=== PATIENT | male | born 1945 | race Caucasian/White ===

== ENCOUNTER 2017-08-14 13:20 | Emergency (ER) | payer OTHER, MEDICARE ==
--- NOTE | 2017-08-14 14:40 | XR ---
EXAMINATION TYPE: XR knee complete LT DATE OF EXAM: 08/14/2017 COMPARISON: NONE HISTORY: Left knee pain TECHNIQUE: Left knee is examined in 3 projections. FINDINGS: No joint effusion is evident. There is mild narrowing of the medial compartment joint space . Milder narrowing of the lateral compartment joint space is present. Tiny posterior superior patella r spur is present. No acute fractures are evident. IMPRESSION: 1. Mild degenerative changes left knee
[2017-08-14] MEDS ORDERED: DICLOXACILLIN 250 MG CAPSULE PO STA (16:00)
--- NOTE | 2017-08-14 16:00 | ED ---
Lower Extremity Injury HPI - General Chief Complaint: Extremity Injury, Lower Stated Complaint: L knee pain Time Seen by Provider: 08/14/17 13:42 Source: patient Mode of arrival: ambulatory Limitations: no limitations - History of Present Illness Initial Comments: 71-year-old male patient presents to the emergency department today for complaints of left knee pain and swelling. Patient states that 2 days ago he was kneeling outside working on a deck. He states that since then has been having left knee pain. He states he has developed some redness and swelling to the knee. States he did present to his primary care physician today who instructed him to come here for an x-ray of the knee. Patient states that the knee feels swollen. He states he does have full range of motion of the knee however has increased pain with full extension. Patient states that otherwise he is feeling fine. He denies any fever or chills. Denies any numbness or tingling to the lower leg. Denies any previous injury to the leg. States that the knee appears to be somewhat better since yesterday. He denies any swelling to the foot or ankle. Patient denies any recent shortness breath, chest pain, abdominal pain, nausea, vomiting, diarrhea, constipation, back pain, numbness, tingling, headache, visual changes, hematuria, dysuria, urinary frequency, urinary urgency, or any other complaints. Denies any recent travel or history of blood clots. Patient does have a history of type 2 diabetes. - Related Data Previous Rx's Medication Instructions Recorded Dicloxacillin [Dynapen] 500 mg PO Q6H #56 capsule 08/14/17 Allergies Allergy/AdvReac Type Severity Reaction Status Date / Time iodine Allergy Unknown Verified 08/14/17 13:34 Review of Systems ROS Statement: Those systems with pertinent positive or pertinent negative responses have been documented in the HPI. ROS Other: All systems not noted in ROS Statement are negative. Past Medical History Past Medical History: Diabetes Mellitus, Hyperlipidemia, Hypertension History of Any Multi-Drug Resistant Organisms: None Reported Past Surgical History: Back Surgery Past Psychological History: No Psychological Hx Reported Smoking Status: Former smoker Past Alcohol Use History: None Reported Past Drug Use History: None Reported General Exam Limitations: no limitations General appearance: alert, in no apparent distress, other (This is a well- developed, well-nourished adult male patient in no acute distress. Vital signs upon presentation her temperature 97.5F, pulse 71, respirations 20, blood pressure 139/88, pulse ox 95% on room air.) Eye exam: Present: normal appearance, PERRL, EOMI. Absent: scleral icterus, conjunctival injection, periorbital swelling ENT exam: Present: normal exam, normal oropharynx, mucous membranes moist Respiratory exam: Present: normal lung sounds bilaterally. Absent: respiratory distress, wheezes, rales, rhonchi, stridor Cardiovascular Exam: Present: regular rate, normal rhythm, normal heart sounds. Absent: systolic murmur, diastolic murmur, rubs, gallop, clicks Extremities exam: Present: full ROM (Increased pain with full extension), normal capillary refill, joint swelling (Left knee swelling, suprapatellar and infrapatellar.), other (He has erythema extending from above the left knee, leg. Leg is warm to touch. Pedal posttibial pulses are intact and 2+ bilaterally. Left leg feels more warm than the right leg.). Absent: tenderness (No point tenderness over the knee or joint.), pedal edema, calf tenderness Neurological exam: Present: alert, oriented X3, CN II-XII intact Psychiatric exam: Present: normal affect, normal mood Skin exam: Present: warm, dry, intact, normal color. Absent: rash Course Vital Signs 08/14/17 13:29 Temperature 97.5 F L Pulse Rate 71 Respiratory 20 Rate Blood Pressure 139/88 O2 Sat by Pulse 95 Oximetry Medical Decision Making - Medical Decision Making 71-year-old male patient presented to the emergency department today for evaluation of left knee pain and swelling. Physical examination did reveal erythema surrounding the left knee as well as extending down the left lower leg. The patient did have full range of motion and no point tenderness over the knee. We did perform an x-ray which showed no joint effusion or fracture. We did perform ultrasound of the left lower extremity which was negative for any acute DVT. I did inform patient that I would like to admit him for IV antibiotics however he would like to attempt outpatient oral antibiotic treatment before admission. Patient vital signs are stable with no evidence of fever. I told him that there is a good possibility that this will not clear up with oral antibiotics and that IV antibiotics would be superior. and patient state that the knee looks better since yesterday and they again stated they would like to go home. Nurse discussed this with the patient as well, their decision was to go home. I did draw a line around the erythema, I did inform them to either present back here immediately or follow-up with his doctor if symptoms seem to be worsening or if he develops a fever. They state that they will go to the [facility] in [place] if things seem to be worsening. - Radiology Data Radiology results: report reviewed, image reviewed Ultrasound of the left lower extremity report reviewed in its entirety shows no sonographic evidence of deep venous thrombosis within the left lower extremity. Impression is by Dr. Ragland. 3 views of the left knee shows no joint effusion. There is mild narrowing of the medial compartment joint space. Milder narrowing of the lateral compartment joint space is present. Tiny posterior suprapatellar spur is present. No acute fractures are evident. Impression by Dr. Holly shows mild degenerative changes on the left knee. Disposition Clinical Impression: Bursitis of left knee Disposition: HOME SELF-CARE Condition: Good Instructions: Knee Bursitis (ED) Additional Instructions: Keep leg elevated. Take antibiotic prescription as directed. If redness starts to spread, you develop any red streaking from the knee, or you develop fever return here immediately. Follow up with her primary care physician for recheck of the leg in one to 2 days. Return here immediately for any other new , worsening, or concerning symptoms. Prescriptions: Dicloxacillin [Dynapen] 500 mg PO Q6H #56 capsule Referrals: Aries Chowdhury DO [Primary Care Provider] - 1-2 days Time of Disposition: 16:00
--- NOTE | 2017-08-14 16:28 | US ---
EXAMINATION TYPE: US venous doppler duplex LE LT DATE OF EXAM: 08/14/2017 2:51 PM COMPARISON: NONE CLINICAL HISTORY: Pain. Left knee redness, swelling and pain. Warm to touch. On aspirin. No histor y of blood clots. Patient states he has been kneeling trying to loosen floor boards. SIDE PERFORMED: Left TECHNIQUE: The lower extremity deep venous system is examined utilizing real time linear array sonog porfirio with graded compression, doppler sonography and color-flow sonography. VESSELS IMAGED: External Iliac Vein (EIV) Common Femoral Vein Deep Femoral Vein Greater Saphenous Vein * Femoral Vein Popliteal Vein Small Saphenous Vein * Proximal Calf Veins (* superficial vessels) Left Leg: Negative for DVT Grayscale, color doppler, spectral doppler imaging performed of the deep veins of the lower extremiti es. There is normal flow, compressibility, vascular waveforms. IMPRESSION: No sonographic evidence of deep venous arthrosis within the left lower extremity.
[2017-08-14 16:32] VITALS: BP 152/91; PULSE 89; RESP 18; TEMP 97.9
[2017-08-14] MEDS ORDERED: DICLOXACILLIN 250 MG CAPSULE ONE (16:47)
== END 2017-08-14 16:49 | disposition home or self-care (01) ==
LOC: EC 13:20
DX: M70.52 Other bursitis of knee, left knee (principal); M25.562 Pain in left knee; Z87.891 Personal history of nicotine dependence; Z91.048 Other nonmedicinal substance allergy status; Y93.89 Activity, other specified
CPT/HCPCS: 99284

== ENCOUNTER 2021-09-23 15:32 | Inpatient (IN) | payer OTHER, MEDICARE ==
--- NOTE | 2021-09-23 16:30 | ED ---
General Adult HPI - General Stated complaint: ankle swelling, altered - History of Present Illness Initial comments: Camden is a 76yo M with PMH DM, HTN, HLD, COPD who presents to the ER today via private vehicle for evaluation of flu like illness for 2-3 days. Daughter reports the patient and his are both ill, the patient has not been taking his normal home medications. Patient has also been experiencing urinary incontinence and frequency. Patient's daughter also feels that his feet are swollen, he isnt able to ambulate and has been having frequent falls because of it. - Related Data Allergies Allergy/AdvReac Type Severity Reaction Status Date / Time iodine Allergy Unknown Verified 09/23/21 22:02 Review of Systems ROS Statement: Those systems with pertinent positive or pertinent negative responses have been documented in the HPI. ROS Other: All systems not noted in ROS Statement are negative. Past Medical History Past Medical History: COPD, Diabetes Mellitus, Hyperlipidemia, Hypertension History of Any Multi-Drug Resistant Organisms: None Reported Past Surgical History: Back Surgery Past Psychological History: No Psychological Hx Reported Past Alcohol Use History: None Reported Past Drug Use History: None Reported General Exam - General Exam Comments Initial Comments: Physical Exam GENERAL: Ill appearing Appears dehydrated HENT: Normocephalic, Atraumatic. EYES: PERRL, EOMI PULMONARY: Tachypnea CARDIOVASCULAR: Tachycardia bilateral lower extremity edema R>L ABDOMEN: Soft and nontender with normal bowel sounds. SKIN: Dry : Deferred NEUROLOGIC: Patient is alert but confused, oriented to self and year MUSCULOSKELETAL: Normal extremities with adequate strength and full range of motion. No lower extremity swelling or edema. No calf tenderness. PSYCHIATRIC: Confused Course Vital Signs 09/23/21 09/23/21 09/23/21 16:23 18:35 18:38 Temperature 100.7 F H Pulse Rate 133 H 130 H Respiratory 20 22 22 Rate Blood Pressure 111/77 151/91 O2 Sat by Pulse 89 L 89 L Oximetry 09/23/21 19:21 Temperature Pulse Rate 124 H Respiratory 22 Rate Blood Pressure O2 Sat by Pulse 89 L Oximetry EKG Findings - EKG Comments: EKG Findings:: Initial EKG was obtained at 1641, rate is 133 rhythm is sinus tachycardia normal axis, normal intervals are no acute ST elevations or depressions no evidence of acute ischemia or infarction. EKG was obtained due to persistent tachycardia, repeat EKG was obtained at 2006 rate is 119 rhythm is sinus normal axis normal intervalsST elevations or depressions no evidence of ischemia or infarction, rate has improved Medical Decision Making - Medical Decision Making Patient was seen and evaluated history was obtained primarily from children as the patient was quite confused quite dehydrated. Patient has been ill for at least 3 days possibly longer as the children have not been by to check on him but were concerned about him sounding confused over the phone with by the check him today and found him in quite ill state. With the patient and his are febrile, not feeling well. The patient's not been able to ambulate well he has swelling of the legs is dehydrated. Is positive for COVID-19, discussed with the patient who is still confused and daughter bedside the patient has acute kidney injury, transaminitis, mildly elevated troponin and is hypoxic requiring oxygen. At this time the patient seems to have multisystem organ dysfunction given his advanced age, obesity he does have a poor prognosis. Family is aware but they have never discussed any advanced rectums her CODE STATUS patient will remain full code at this time. He's on for half liters nasal cannula oxygen saturation 92% while in the emergency department Due to the patient's persistent tachycardia and hypoxia there is concern for possible underlying pulmonary embolism however with the patient's very low GFR and acute kidney injury he cannot undergo CT pulmonary embolism study at this time, we will treat empirically with weight-based Lovenox. Duplex ultrasound of the bilateral lower extremities were ordered and will be followed up on by the admitting team. Patient care was discussed with Coco Verde - mid-level provider for the [facility] hospitalist group she accepts the admission for elderly obese general mental COVID-19 multisystem organ dysfunction on oxygen. - Lab Data Result diagrams: 09/23/21 18:21 09/23/21 18:21 Lab Results 09/23/21 09/23/21 09/23/21 Range/Units 16:32 18:21 18:21 WBC 9.9 (3.8-10.6) k/uL RBC 4.82 (4.30-5.90) m/uL Hgb 15.2 (13.0-17.5) gm/dL Hct 46.2 (39.0-53.0) % MCV 95.8 (80.0-100.0) fL MCH 31.5 (25.0-35.0) pg MCHC 32.8 (31.0-37.0) g/dL RDW 13.5 (11.5-15.5) % Plt Count 222 (150-450) k/uL MPV 8.7 Neutrophils % 76 % Lymphocytes % 16 % Monocytes % 5 % Eosinophils % 0 % Basophils % 1 % Neutrophils # 7.6 (1.3-7.7) k/uL Lymphocytes # 1.6 (1.0-4.8) k/uL Monocytes # 0.5 (0-1.0) k/uL Eosinophils # 0.0 (0-0.7) k/uL Basophils # 0.1 (0-0.2) k/uL PT 10.2 (9.0-12.0) sec INR 0.9 (<1.2) APTT 24.2 (22.0-30.0) sec Sodium (137-145) mmol/L Potassium (3.5-5.1) mmol/L Chloride (98-107) mmol/L Carbon Dioxide (22-30) mmol/L Anion Gap mmol/L BUN (9-20) mg/dL Creatinine (0.66-1.25) mg/dL Est GFR (CKD-EPI)AfAm (>60 ml/min/1.73 sqM) Est GFR (CKD-EPI)NonAf (>60 ml/min/1.73 sqM) Glucose (74-99) mg/dL Plasma Lactic Acid Benji (0.7-2.0) mmol/L Calcium (8.4-10.2) mg/dL Magnesium (1.6-2.3) mg/dL Total Bilirubin (0.2-1.3) mg/dL AST (17-59) U/L ALT (4-49) U/L Alkaline Phosphatase (38-126) U/L Lactate Dehydrogenase (313-618) U/L Troponin I (0.000-0.034) ng/mL C-Reactive Protein (<1.0) mg/dL Total Protein (6.3-8.2) g/dL Albumin (3.5-5.0) g/dL Coronavirus (PCR) Detected A (Not Detectd) 09/23/21 09/23/21 09/23/21 Range/Units 18:21 18:21 18:21 WBC (3.8-10.6) k/uL RBC (4.30-5.90) m/uL Hgb (13.0-17.5) gm/dL Hct (39.0-53.0) % MCV (80.0-100.0) fL MCH (25.0-35.0) pg MCHC (31.0-37.0) g/dL RDW (11.5-15.5) % Plt Count (150-450) k/uL MPV Neutrophils % % Lymphocytes % % Monocytes % % Eosinophils % % Basophils % % Neutrophils # (1.3-7.7) k/uL Lymphocytes # (1.0-4.8) k/uL Monocytes # (0-1.0) k/uL Eosinophils # (0-0.7) k/uL Basophils # (0-0.2) k/uL PT (9.0-12.0) sec INR (<1.2) APTT (22.0-30.0) sec Sodium 140 (137-145) mmol/L Potassium 4.3 (3.5-5.1) mmol/L Chloride 102 (98-107) mmol/L Carbon Dioxide 23 (22-30) mmol/L Anion Gap 15 mmol/L BUN 54 H (9-20) mg/dL Creatinine 1.49 H (0.66-1.25) mg/dL Est GFR (CKD-EPI)AfAm 52 (>60 ml/min/1.73 sqM) Est GFR (CKD-EPI)NonAf 45 (>60 ml/min/1.73 sqM) Glucose 133 H (74-99) mg/dL Plasma Lactic Acid Benji 2.0 (0.7-2.0) mmol/L Calcium 9.0 (8.4-10.2) mg/dL Magnesium 2.8 H (1.6-2.3) mg/dL Total Bilirubin 2.1 H (0.2-1.3) mg/dL AST 123 H (17-59) U/L ALT 58 H (4-49) U/L Alkaline Phosphatase 111 (38-126) U/L Lactate Dehydrogenase 1625 H (313-618) U/L Troponin I 0.026 (0.000-0.034) ng/mL C-Reactive Protein 38.4 H (<1.0) mg/dL Total Protein 6.8 (6.3-8.2) g/dL Albumin 3.6 (3.5-5.0) g/dL Coronavirus (PCR) (Not Detectd) Disposition Clinical Impression: COVID-19, Multisystem organ failure, Obesity Disposition: ADMITTED IP TO THIS HOSP Condition: Serious Is patient prescribed a controlled substance at d/c from ED?: No
[2021-09-23] MEDS ORDERED: SODIUM CHLORIDE 0.9% 500 ML 500 ML IV ONE (17:27)
[2021-09-23 18:29] LABS: Basophils # (A) 0.1 k/uL (0-0.2); Basophils % (A) 1 %; Eosinophils % (A) 0 %; HCT 46.2 % (39.0-53.0); HGB 15.2 gm/dL (13.0-17.5); Lymphocytes # (A) 1.6 k/uL (1.0-4.8); Lymphocytes % (A) 16 %; MCH 31.5 pg (25.0-35.0); MCHC 32.8 g/dL (31.0-37.0); MCV 95.8 fL (80.0-100.0); Mean Platelet Volume 8.7; Monocytes # (A) 0.5 k/uL (0-1.0); Monocytes % (A) 5 %; Neutrophils # (A) 7.6 k/uL (1.3-7.7); Neutrophils % (A) 76 %; Platelet Count 222 k/uL (150-450); RBC 4.82 m/uL (4.30-5.90); RDW 13.5 % (11.5-15.5); WBC 9.9 k/uL (3.8-10.6)
[2021-09-23 18:38] LABS: INR 0.9 (<1.2); Partial Thromboplastin Time 24.2 sec (22.0-30.0); Prothrombin Time 10.2 sec (9.0-12.0)
[2021-09-23 18:43] LABS: Albumin 3.6 g/dL (3.5-5.0); Magnesium 2.8 mg/dL (1.6-2.3); Potassium 4.3 mmol/L (3.5-5.1); Total Bilirubin 2.1 mg/dL (0.2-1.3); Total Protein 6.8 g/dL (6.3-8.2)
[2021-09-23] MEDS: ACETAMINOPHEN TAB 500 MG TAB PO PRN (18:48)
[2021-09-23] MEDS: SODIUM CHLORIDE 0.9% 1,000 ML IV SCH (18:48)
--- NOTE | 2021-09-23 19:15 | XR ---
EXAMINATION TYPE: XR chest 1V portable DATE OF EXAM: 09/23/2021 COMPARISON: NONE HISTORY: Pneumonia TECHNIQUE: Single view FINDINGS: There is some increased interstitial density in the lung baxter bilaterally. This is worse on the left side. There is elevated right diaphragm. There is some atelectasis right lung base. There is no heart failure. IMPRESSION: Interstitial pulmonary infiltrates slightly more on the left side. Mild atelectasis right lung base. No heart failure seen. Atheromatous aorta. Normal heart.
[2021-09-23 19:23] LABS: C Reactive Protein 38.4 mg/dL (<1.0)
[2021-09-23] MEDS ORDERED: ENOXAPARIN 100 MG/ML SYRINGE SQ STA (21:48)
[2021-09-23] MEDS ORDERED: NALOXONE 0.4 MG/ML 1 ML VIAL IV PRN (21:48)
--- NOTE | 2021-09-23 23:23 | US ---
EXAMINATION TYPE: US venous doppler duplex LE DATE OF EXAM: 09/23/2021 10:58 PM COMPARISON: US LL 2017 CLINICAL HISTORY: edema, COVID - concern for DVT. Edema. Covid positive, concern for DVT. SIDE PERFORMED: Bilateral TECHNIQUE: The lower extremity deep venous system is examined utilizing real time linear array sonog porfirio with graded compression, doppler sonography and color-flow sonography. VESSELS IMAGED: Common Femoral Vein Deep Femoral Vein Greater Saphenous Vein * Femoral Vein Popliteal Vein Small Saphenous Vein * Proximal Calf Veins (* superficial vessels) Right Leg: Rouleaux flow visualized throughout all veins imaged causing slight color defect. All vei ns imaged appear to compress at this time. Duplicate popliteal vein noted. Left Leg: Rouleaux flow visualized throughout all veins imaged causing slight color defect. All vein s imaged appear to compress at this time. Duplicate femoral and popliteal vein noted. Augment deferre d-probable slow flow seen. IMPRESSION: No evidence of deep vein thrombosis in both legs.
[2021-09-23] MEDS ORDERED: ALBUTEROL HFA INHALER INHALATION PRN (23:53)
[2021-09-24] MEDS: GABAPENTIN 300 MG CAP PO SCH ×4 (00:31→22:32)
[2021-09-24] MEDS: LATANOPROST 0.005% OPHTH DROPS 2.5 ML BTL BOTH EYES SCH ×2 (00:32→22:43)
[2021-09-24] MEDS: carvediloL 12.5 MG TAB PO SCH ×3 (00:33→22:32)
[2021-09-24] MEDS: ALBUTEROL HFA INHALER INHALATION SCH ×6 (02:45→20:55)
[2021-09-24] MEDS: SODIUM CHLORIDE 0.9% 1,000 ML IV SCH ×2 (07:04→22:03)
[2021-09-24 07:42] LABS: Glucose,Whole Blood 178 mg/dL (75-99)
[2021-09-24] MEDS: TIOTROPIUM 2.5 MCG INHALER INHALATION SCH (09:12)
[2021-09-24] MEDS: SYMBICORT 80-4.5 MCG INHALER INHALATION SCH ×2 (09:12→20:55)
[2021-09-24 09:37] LABS: Basophils # (A) 0.03 X 10*3/uL (0.00-0.10); Basophils % (A) 0.4 %; Eosinophils # (A) 0.01 X 10*3/uL (0.04-0.35); Eosinophils % (A) 0.1 %; HCT 40.1 % (39.6-50.0); Lymphocytes # (A) 0.51 X 10*3/uL (0.90-5.00); Lymphocytes % (A) 6.2 %; MCHC 29.9 g/dL (32.0-37.0); MCV 100.3 fL (80.0-97.0); Mean Platelet Volume 10.8 fL (9.5-12.2); Monocytes # (A) 0.44 X 10*3/uL (0.20-1.00); Monocytes % (A) 5.4 %; Neutrophils # (A) 7.12 X 10*3/uL (1.80-7.70); Neutrophils % (A) 86.6 %; Platelet Count 213 X 10*3/uL (140-440); RDW 14.4 % (11.5-14.5); WBC 8.22 X 10*3/uL (4.50-10.00)
[2021-09-24] MEDS: CHOLECALCIFEROL 125 MCG (5000 IU) TABLET PO SCH (09:56)
[2021-09-24] MEDS: ASCORBIC ACID 500 MG TAB PO SCH (09:56)
[2021-09-24] MEDS: INSULIN ASPART (NovoLOG) 100 UNIT/ML VIAL SQ SCH ×4 (09:56→22:42)
[2021-09-24] MEDS: TAMSULOSIN 0.4 MG CAP.ER.24H PO SCH (09:56)
[2021-09-24] MEDS: DEXAMETHASONE SOD PHOSPHATE 10 MG/ML 1 ML VIAL IVP SCH (09:57)
[2021-09-24] MEDS: ZINC SULFATE 220 MG CAP PO SCH (09:57)
[2021-09-24 10:05] LABS: African American GFR (CKD) 57.2 (60.0-200.0); Albumin/Globulin Ratio 1.21 (1.60-3.17); BUN/Creat Ratio 32.39 Ratio (12.00-20.00); Blood Urea Nitrogen 44.7 mg/dL (9.0-27.0); Calcium 8.2 mg/dL (8.7-10.3); Globulin 2.5 g/dL (1.6-3.3); Non-African American GFR(CKD) 49.3 (60.0-200.0); Total Bilirubin 1.4 mg/dL (0.30-1.20); Total Protein 5.6 g/dL (6.2-8.2)
--- NOTE | 2021-09-24 12:00 | P.CNPUL ---
History of Present Illness Consult date: 09/24/21 Requesting physician: Kevin Moore Reason for consult: dyspnea, hypoxemia, abnormal CXR/CT Chief complaint: Shortness of breath, cough, congestion History of present illness: This is a 76-year-old male patient who follows with the [facility] system as his primary care provider. He has a history of chronic obstructive pulmonary disease, hypertension, hyperlipidemia, diabetes mellitus, obstructive sleep apnea maintained on CPAP at a pressure of 11 cm of water with C-Flex of 3. He has a 2 week history of increasing shortness of breath, cough and congestion. He presented here to the emergency room yesterday for the same. X-ray reveals bilateral patchy infiltrates left greater than right consistent with COVID-19 pneumonia. White count 8.2. Hemoglobin 12.0. D-dimer 2.07. Sodium 140. Potassium 4.0. Creatinine 1.4. AST 85. ALT 50. LDH 1625. C-reactive protein 38.4. Pro-calcitonin 4.89. [place] virus by PCR positive. He's been initiated on Decadron, vitamin supplements. If he did receive Lovenox 100 mg subcu once yesterday. Normal saline at 75 ML's per hour. He is seen today in consultation in the emergency department. He is currently sitting up awake and alert. Some what slow to respond. Somewhat of a poor historian. His daughter is present in the room in supplies most of the information. Is currently maintaining O2 saturations in the low 90s on 6 L high flow nasal cannula. He's been afebrile. Slightly tachycardic. Hypertensive. Review of Systems REVIEW OF SYSTEMS: CONSTITUTIONAL: Denies any recent significant weight loss or weight gain. EYES: Denies change in vision. EARS, NOSE, MOUTH, THROAT: Denies headaches, denies sore throat. CARDIOVASCULAR: Denies chest pain, palpitations or syncopal episodes. RESPIRATORY: Positive for shortness of breath, cough, congestion no hemoptysis. GASTROINTESTINAL: Denies change in appetite, denies abdominal pain GENITOURINARY: Denies hematuria, denies infections. MUSKULOSKELETAL: Denies pain, denies swelling. INTEGUMENTARY: Denies rash, denies eczema. NEUROLOGICAL: Denies recent memory loss, no recent seizure activity. PSYCHIATRIC: Denies anxiety, denies depression. HEMATOLOGIC/LYMPHATIC: Denies anemia, denies enlarged lymph nodes. Past Medical History Past Medical History: Cancer, COPD, Diabetes Mellitus, Eye Disorder, GERD/Reflux, Hearing Disorder / Deafness, Hyperlipidemia, Hypertension, Osteoarthritis (OA), Pneumonia, Prostate Disorder, Sleep Apnea/CPAP/BIPAP, Vascular Disorder Additional Past Medical History / Comment(s): NIDDM type II, neuropathy bilateral hands/feet, diabetic retinopathy, MAGAN with Cpap, skin cancer with removals, diverticular disease, RLS, BPH, bilateral ear infections/tinnitis/[place] uses hearing aides History of Any Multi-Drug Resistant Organisms: None Reported Past Surgical History: Back Surgery, Hernia Repair, Orthopedic Surgery Additional Past Surgical History / Comment(s): Cervical fusion, L5 back surgery, umbilical hernia, colonoscopies, vasectomy, circumcism. Past Anesthesia/Blood Transfusion Reactions: No Reported Reaction Smoking Status: Former smoker - Past Family History Father Family Medical History: Unable to Obtain Mother Family Medical History: No Reported History Additional Family Medical History / Comment(s): Mother lived into her 90s. Medications and Allergies Home Medications Medication Instructions Recorded Confirmed Type Albuterol Inhaler [Ventolin Hfa 1 puff INHALATION RT-Q4H PRN 09/23/21 09/23/21 History Inhaler] Carvedilol [Coreg] 12.5 mg PO BID 09/23/21 09/23/21 History Cyclobenzaprine [Flexeril] 10 mg PO TID PRN 09/23/21 09/23/21 History Fluticasone Propion/Salmeterol 1 puff INHALATION RT-BID 09/23/21 09/23/21 History [Fluticasone-Salmeterol 250-50] Gabapentin [Neurontin] 300 mg PO TID 09/23/21 09/23/21 History Latanoprost [Xalatan 0.005%] 1 drop BOTH EYES HS 09/23/21 09/23/21 History Lidocaine 5% Patch [Lidoderm 5% 1 patch TOPICAL DAILY 09/23/21 09/23/21 History Patch] Simvastatin [Zocor] 20 mg PO HS 09/23/21 09/23/21 History Tamsulosin [Flomax] 0.8 mg PO DAILY 09/23/21 09/23/21 History Tiotropium 2.5 Mcg/Puff [Spiriva 2 puff INHALATION RT-DAILY 09/23/21 09/23/21 History Respimat 2.5 Mcg] metFORMIN HCL [Glucophage] 850 mg PO DAILY 09/23/21 09/23/21 History rOPINIRole HCL [Requip] 2 mg PO HS 09/23/21 09/23/21 History traMADol HCl [Ultram] 100 mg PO Q6H PRN 09/23/21 09/23/21 History Allergies Allergy/AdvReac Type Severity Reaction Status Date / Time iodine Allergy Unknown Verified 09/23/21 22:02 Physical Exam Vitals: Vital Signs Temp Pulse Pulse Resp BP BP Pulse Ox 09/24/21 09:55 108 H 176/85 92 L 09/24/21 02:00 98.8 F 99 22 152/83 92 L 09/23/21 19:21 124 H 22 89 L 09/23/21 18:38 22 09/23/21 18:35 130 H 22 151/91 89 L 09/23/21 16:23 100.7 F H 133 H 20 111/77 89 L Intake and Output 09/23/21 09/24/21 09/24/21 22:59 06:59 14:59 Output Total 600 Balance -600 Output: Urine 600 Straight 600 Other: Voiding Method Urinal Diaper Weight 108.862 kg 108.862 kg GENERAL EXAM: Alert, 76 year old male patient, on 6 L high flow nasal cannula, comfortable in no apparent distress. HEAD: Normocephalic. EYES: Normal reaction of pupils, equal size. NOSE: Clear with pink turbinates. THROAT: No erythema or exudates. NECK: No masses, no JVD. CHEST: No chest wall deformity. LUNGS: Equal air entry with coarse crackles in the bilateral bases. CVS: S1 and S2 normal with no audible murmur, regular rhythm. ABDOMEN: No hepatosplenomegaly, normal bowel sounds, no guarding or rigidity. SPINE: No scoliosis or deformity SKIN: No rashes CENTRAL NERVOUS SYSTEM: No focal deficits, tone is normal in all 4 extremities. EXTREMITIES: There is no peripheral edema. No clubbing, no cyanosis. Peripheral pulses are intact. Results - Laboratory Findings CBC and BMP: 09/24/21 04:40 09/24/21 04:40 PT/INR, D-dimer PT 10.2 sec (9.0-12.0) 09/23/21 18:21 INR 0.9 (<1.2) 09/23/21 18:21 D-Dimer 2.07 mg/L FEU (<0.60) H 09/24/21 04:40 Abnormal lab findings: Abnormal Labs 09/23/21 09/23/21 09/23/21 16:32 18:21 18:21 RBC Hgb MCV MCHC Immature Gran # Lymphocytes # Eosinophils # D-Dimer BUN 54 H Creatinine 1.49 H Est GFR (CKD-EPI)AfAm Est GFR (CKD-EPI)NonAf BUN/Creatinine Ratio Glucose 133 H POC Glucose (mg/dL) Calcium Magnesium 2.8 H Ferritin 1695.0 H Total Bilirubin 2.1 H AST 123 H ALT 58 H Lactate Dehydrogenase 1625 H C-Reactive Protein 38.4 H Total Protein Albumin Albumin/Globulin Ratio Procalcitonin 4.89 H Coronavirus (PCR) Detected A 09/24/21 09/24/21 09/24/21 04:40 04:40 04:40 RBC 4.00 L Hgb 12.0 L MCV 100.3 H MCHC 29.9 L Immature Gran # 0.11 H Lymphocytes # 0.51 L Eosinophils # 0.01 L D-Dimer 2.07 H BUN 44.7 H Creatinine Est GFR (CKD-EPI)AfAm 57.2 L Est GFR (CKD-EPI)NonAf 49.3 L BUN/Creatinine Ratio 32.39 H Glucose 153 H POC Glucose (mg/dL) Calcium 8.2 L Magnesium Ferritin Total Bilirubin 1.40 H AST 85 H ALT 50 H Lactate Dehydrogenase C-Reactive Protein Total Protein 5.6 L Albumin 3.0 L Albumin/Globulin Ratio 1.21 L Procalcitonin Coronavirus (PCR) 09/24/21 07:40 RBC Hgb MCV MCHC Immature Gran # Lymphocytes # Eosinophils # D-Dimer BUN Creatinine Est GFR (CKD-EPI)AfAm Est GFR (CKD-EPI)NonAf BUN/Creatinine Ratio Glucose POC Glucose (mg/dL) 178 H Calcium Magnesium Ferritin Total Bilirubin AST ALT Lactate Dehydrogenase C-Reactive Protein Total Protein Albumin Albumin/Globulin Ratio Procalcitonin Coronavirus (PCR) - Diagnostic Findings Chest x-ray: image reviewed Assessment and Plan Assessment: 1 Acute COVID-19 pneumonia. Cannot rule out underlying infection with elevated pro calcitonin of 4.89. Symptoms started 2 weeks ago. Outside the window for Remdesivir. Not qualifying for Baricitinib. Not vaccinated. 2 Elevated inflammatory markers secondary to above 3 Acute renal failure secondary to dehydration 4 Diabetes mellitus 5 Hypertension 6 Hyperlipidemia 7 Chronic obstructive pulmonary disease 8 Obstructive sleep apnea, on CPAP Plan: The patient was seen and evaluated Chest x-ray and labs reviewed Continue Lovenox, Decadron, vitamin supplements Doppler of the lower extremities negative for DVT Obtain blood and sputum cultures Continue bronchodilators Titrate the FiO2 as tolerated We will continue to follow and make further recommendations based on his clinical status I, the cosigning physician, performed a history & physical examination of the patient. Lungs sounds are coarse crackles in the bilateral bases. Maintaining good O2 saturations in the 90s on 6 L high flow nasal cannula I discussed the assessment and plan of care with my nurse practitioner, Iraida Jimenez. I attest to the above consultation as dictated by her. Time with Patient: Greater than 30
[2021-09-24] MEDS: ENOXAPARIN 40 MG/0.4 ML SYRINGE SQ SCH (12:28)
--- NOTE | 2021-09-24 12:32 | P.HPIM ---
History of Present Illness 76-year-old male came in with complaints of shortness of breath cough has been going on for about the 2 weeks. Patient is hypoxic present has 6 L of oxygen. Found to have Covid 19 infection" is significant infiltrate on the chest x-ray with elevated liver enzymes elevated to calcitonin 4.89. Patient was also having diarrhea nausea vomiting. is bit dehydrated. Patient was a creatinine is 1.42 diabetes with us and is on metformin at home. REVIEW OF SYSTEMS: CONSTITUTIONAL: No fever, no malaise, no fatigue. HEENT: No recent visual problems or hearing problems. Denied any sore throat. CARDIOVASCULAR: No chest pain, orthopnea, PND, no palpitations, no syncope. PULMONARY: As mentioned in HPI GASTROINTESTINAL: No diarrhea, no nausea, no vomiting, no abdominal pain. NEUROLOGICAL: No headaches, no weakness, no numbness. HEMATOLOGICAL: Denies any bleeding or petechiae. GENITOURINARY: Denies any burning micturition, frequency, or urgency. MUSCULOSKELETAL/RHEUMATOLOGICAL: Denies any joint pain, swelling, or any muscle pain. ENDOCRINE: Denies any polyuria or polydipsia. The rest of the 14-point review of systems is negative. PHYSICAL EXAMINATION: GENERAL: The patient is alert and oriented x3, not in any acute distress. Well developed, well nourished. HEENT: Pupils are round and equally reacting to light. EOMI. No scleral icterus. No conjunctival pallor. Normocephalic, atraumatic. No pharyngeal erythema. No thyromegaly. CARDIOVASCULAR: S1 and S2 present. No murmurs, rubs, or gallops. PULMONARY: Chest is clear to auscultation, no wheezing or crackles. ABDOMEN: Soft, nontender, nondistended, normoactive bowel sounds. No palpable organomegaly. MUSCULOSKELETAL: No joint swelling or deformity. EXTREMITIES: No cyanosis, clubbing, or pedal edema. NEUROLOGICAL: Gross neurological examination did not reveal any focal deficits. SKIN: No rashes. Assessment and plan -Acute hypoxic respiratory failure secondary to be 90 pneumonia: Patient will be started on Decadron. Patient doesn't qualify for a Remdesivir. Acute renal failure possibly secondary to intravascular integration dehydration patient was started on IV fluids -Type 2 diabetes mellitus blood sugars are expected to go patient was started on sliding scale insulin -Hypertension -Hyperlipidemia next and-transaminitis secondary to Covid 19 infection -Obstructive sleep apnea patient doesn't use any oxygen at home patient quit smoking many years ago -Sleep apnea. DVT prophylaxis: Lovenox Past Medical History Past Medical History: Cancer, COPD, Diabetes Mellitus, Eye Disorder, G ERD/Reflux, Hearing Disorder / Deafness, Hyperlipidemia, Hypertension, Osteoarthritis (OA), Pneumonia, Prostate Disorder, Sleep Apnea/CPAP/BIPAP, Vascular Disorder Additional Past Medical History / Comment(s): NIDDM type II, neuropathy bilateral hands/feet, diabetic retinopathy, MAGAN with Cpap, skin cancer with removals, diverticular disease, RLS, BPH, bilateral ear infections/tinnitis/[place] uses hearing aides History of Any Multi-Drug Resistant Organisms: None Reported Past Surgical History: Back Surgery, Hernia Repair, Orthopedic Surgery Additional Past Surgical History / Comment(s): Cervical fusion, L5 back surgery, umbilical hernia, colonoscopies, vasectomy, circumcism. Past Anesthesia/Blood Transfusion Reactions: No Reported Reaction Smoking Status: Former smoker - Past Family History Father Family Medical History: Unable to Obtain Mother Family Medical History: No Reported History Additional Family Medical History / Comment(s): Mother lived into her 90s. Medications and Allergies Home Medications Medication Instructions Recorded Confirmed Type Albuterol Inhaler [Ventolin Hfa 1 puff INHALATION RT-Q4H PRN 09/23/21 09/23/21 History Inhaler] Carvedilol [Coreg] 12.5 mg PO BID 09/23/21 09/23/21 History Cyclobenzaprine [Flexeril] 10 mg PO TID PRN 09/23/21 09/23/21 History Fluticasone Propion/Salmeterol 1 puff INHALATION RT-BID 09/23/21 09/23/21 History [Fluticasone-Salmeterol 250-50] Gabapentin [Neurontin] 300 mg PO TID 09/23/21 09/23/21 History Latanoprost [Xalatan 0.005%] 1 drop BOTH EYES HS 09/23/21 09/23/21 History Lidocaine 5% Patch [Lidoderm 5% 1 patch TOPICAL DAILY 09/23/21 09/23/21 History Patch] Simvastatin [Zocor] 20 mg PO HS 09/23/21 09/23/21 History Tamsulosin [Flomax] 0.8 mg PO DAILY 09/23/21 09/23/21 History Tiotropium 2.5 Mcg/Puff [Spiriva 2 puff INHALATION RT-DAILY 09/23/21 09/23/21 History Respimat 2.5 Mcg] metFORMIN HCL [Glucophage] 850 mg PO DAILY 09/23/21 09/23/21 History rOPINIRole HCL [Requip] 2 mg PO HS 09/23/21 09/23/21 History traMADol HCl [Ultram] 100 mg PO Q6H PRN 09/23/21 09/23/21 History Allergies Allergy/AdvReac Type Severity Reaction Status Date / Time iodine Allergy Unknown Verified 09/23/21 22:02 Physical Exam Vitals: Vital Signs Temp Pulse Pulse Resp BP BP Pulse Ox 09/24/21 09:55 108 H 176/85 92 L 09/24/21 02:00 98.8 F 99 22 152/83 92 L 09/23/21 19:21 124 H 22 89 L 09/23/21 18:38 22 09/23/21 18:35 130 H 22 151/91 89 L 09/23/21 16:23 100.7 F H 133 H 20 111/77 89 L Intake and Output 09/23/21 09/24/21 09/24/21 22:59 06:59 14:59 Output Total 600 Balance -600 Output: Urine 600 Straight 600 Other: Voiding Method Urinal Diaper Weight 108.862 kg 108.862 kg Results CBC & Chem 7: 09/24/21 04:40 09/24/21 04:40 Labs: Abnormal Lab Results - Last 24 Hours (Table) 09/23/21 09/23/21 09/23/21 Range/Units 16:32 18:21 18:21 RBC (4.40-5.60) X 10*6/uL Hgb (13.0-17.0) g/dL MCV (80.0-97.0) fL MCHC (32.0-37.0) g/dL Immature Gran # (0.00-0.04) X 10*3/uL Lymphocytes # (0.90-5.00) X 10*3/uL Eosinophils # (0.04-0.35) X 10*3/uL D-Dimer (<0.60) mg/L FEU BUN 54 H (9-20) mg/dL Creatinine 1.49 H (0.66-1.25) mg/dL Est GFR (CKD-EPI)AfAm (60.0-200.0) Est GFR (CKD-EPI)NonAf (60.0-200.0) BUN/Creatinine Ratio (12.00-20.00) Ratio Glucose 133 H (74-99) mg/dL POC Glucose (mg/dL) (75-99) mg/dL Calcium (8.7-10.3) mg/dL Magnesium 2.8 H (1.6-2.3) mg/dL Ferritin 1695.0 H (22.0-322.0) ng/mL Total Bilirubin 2.1 H (0.2-1.3) mg/dL AST 123 H (17-59) U/L ALT 58 H (4-49) U/L Lactate Dehydrogenase 1625 H (313-618) U/L C-Reactive Protein 38.4 H (<1.0) mg/dL Total Protein (6.2-8.2) g/dL Albumin (3.8-4.9) g/dL Albumin/Globulin Ratio (1.60-3.17) g/dL Procalcitonin 4.89 H (0.02-0.09) ng/mL Coronavirus (PCR) Detected A (Not Detectd) 09/24/21 09/24/21 09/24/21 Range/Units 04:40 04:40 04:40 RBC 4.00 L (4.40-5.60) X 10*6/uL Hgb 12.0 L (13.0-17.0) g/dL MCV 100.3 H (80.0-97.0) fL MCHC 29.9 L (32.0-37.0) g/dL Immature Gran # 0.11 H (0.00-0.04) X 10*3/uL Lymphocytes # 0.51 L (0.90-5.00) X 10*3/uL Eosinophils # 0.01 L (0.04-0.35) X 10*3/uL D-Dimer 2.07 H (<0.60) mg/L FEU BUN 44.7 H (9-20) mg/dL Creatinine (0.66-1.25) mg/dL Est GFR (CKD-EPI)AfAm 57.2 L (60.0-200.0) Est GFR (CKD-EPI)NonAf 49.3 L (60.0-200.0) BUN/Creatinine Ratio 32.39 H (12.00-20.00) Ratio Glucose 153 H (74-99) mg/dL POC Glucose (mg/dL) (75-99) mg/dL Calcium 8.2 L (8.7-10.3) mg/dL Magnesium (1.6-2.3) mg/dL Ferritin (22.0-322.0) ng/mL Total Bilirubin 1.40 H (0.2-1.3) mg/dL AST 85 H (17-59) U/L ALT 50 H (4-49) U/L Lactate Dehydrogenase (313-618) U/L C-Reactive Protein (<1.0) mg/dL Total Protein 5.6 L (6.2-8.2) g/dL Albumin 3.0 L (3.8-4.9) g/dL Albumin/Globulin Ratio 1.21 L (1.60-3.17) g/dL Procalcitonin (0.02-0.09) ng/mL Coronavirus (PCR) (Not Detectd) 09/24/21 Range/Units 07:40 RBC (4.40-5.60) X 10*6/uL Hgb (13.0-17.0) g/dL MCV (80.0-97.0) fL MCHC (32.0-37.0) g/dL Immature Gran # (0.00-0.04) X 10*3/uL Lymphocytes # (0.90-5.00) X 10*3/uL Eosinophils # (0.04-0.35) X 10*3/uL D-Dimer (<0.60) mg/L FEU BUN (9-20) mg/dL Creatinine (0.66-1.25) mg/dL Est GFR (CKD-EPI)AfAm (60.0-200.0) Est GFR (CKD-EPI)NonAf (60.0-200.0) BUN/Creatinine Ratio (12.00-20.00) Ratio Glucose (74-99) mg/dL POC Glucose (mg/dL) 178 H (75-99) mg/dL Calcium (8.7-10.3) mg/dL Magnesium (1.6-2.3) mg/dL Ferritin (22.0-322.0) ng/mL Total Bilirubin (0.2-1.3) mg/dL AST (17-59) U/L ALT (4-49) U/L Lactate Dehydrogenase (313-618) U/L C-Reactive Protein (<1.0) mg/dL Total Protein (6.2-8.2) g/dL Albumin (3.8-4.9) g/dL Albumin/Globulin Ratio (1.60-3.17) g/dL Procalcitonin (0.02-0.09) ng/mL Coronavirus (PCR) (Not Detectd) Thrombosis Risk Factor Assmnt - Choose All That Apply Any of the Below Risk Factors Present?: Yes Each Factor Represents 1 point: Abnormal pulmonary function (COPD), Obesity (BMI >25), Serious lung disease incl. pneumonia (< 1month) Other Risk Factors: Yes Each Risk Factor Represents 2 Points: Malignancy Each Risk Factor Represents 3 Points: Age 75 years or older Other congenital or acquired thrombophilia - If yes, enter type in comment: No Thrombosis Risk Factor Assessment Total Risk Factor Score: 8 Thrombosis Risk Factor Assessment Level: High Risk
[2021-09-24 12:33] LABS: Glucose,Whole Blood 162 mg/dL (75-99)
[2021-09-24 14:02] LABS: Glucose,Whole Blood 146 mg/dL (75-99)
[2021-09-24 16:42] LABS: Glucose,Whole Blood 244 mg/dL (75-99)
[2021-09-24 21:23] LABS: Glucose,Whole Blood 153 mg/dL (75-99)
[2021-09-25] MEDS: TIOTROPIUM 2.5 MCG INHALER INHALATION SCH (07:19)
[2021-09-25] MEDS: SYMBICORT 80-4.5 MCG INHALER INHALATION SCH ×2 (07:19→21:00)
[2021-09-25] MEDS: ALBUTEROL HFA INHALER INHALATION SCH ×4 (07:19→21:00)
[2021-09-25 07:56] LABS: Glucose,Whole Blood 133 mg/dL (75-99)
[2021-09-25] MEDS: carvediloL 12.5 MG TAB PO SCH ×2 (07:58→21:21)
[2021-09-25] MEDS: GABAPENTIN 300 MG CAP PO SCH ×3 (07:58→21:21)
[2021-09-25] MEDS: ASCORBIC ACID 500 MG TAB PO SCH (07:59)
[2021-09-25] MEDS: DEXAMETHASONE SOD PHOSPHATE 10 MG/ML 1 ML VIAL IVP SCH (07:59)
[2021-09-25] MEDS: ZINC SULFATE 220 MG CAP PO SCH (07:59)
[2021-09-25] MEDS: TAMSULOSIN 0.4 MG CAP.ER.24H PO SCH (07:59)
[2021-09-25] MEDS: CHOLECALCIFEROL 125 MCG (5000 IU) TABLET PO SCH (07:59)
[2021-09-25] MEDS: INSULIN ASPART (NovoLOG) 100 UNIT/ML VIAL SQ SCH ×5 (07:59→21:21)
[2021-09-25] MEDS: ENOXAPARIN 40 MG/0.4 ML SYRINGE SQ SCH (08:00)
[2021-09-25] MEDS: LIDOCAINE 5% PATCH TOPICAL SCH (08:00)
[2021-09-25] MEDS: SODIUM CHLORIDE 0.9% 1,000 ML IV SCH ×2 (08:00→08:46)
[2021-09-25] MEDS: amLODIPine 5 MG TAB PO SCH (10:20)
[2021-09-25 11:43] LABS: Glucose,Whole Blood 323 mg/dL (75-99)
[2021-09-25 11:49] LABS: African American GFR (CKD) 75.2 (60.0-200.0); Albumin 3.1 g/dL (3.8-4.9); Albumin/Globulin Ratio 1.15 (1.60-3.17); Anion Gap 16.4 mmol/L (10.00-18.00); BUN/Creat Ratio 28.36 Ratio (12.00-20.00); Blood Urea Nitrogen 31.2 mg/dL (9.0-27.0); Calcium 8.5 mg/dL (8.7-10.3); Carbon Dioxide 22.6 mmol/L (20.0-27.5); Globulin 2.7 g/dL (1.6-3.3); Non-African American GFR(CKD) 64.9 (60.0-200.0); Potassium 4.2 mmol/L (3.5-5.5); Total Bilirubin 1.1 mg/dL (0.30-1.20); Total Protein 5.8 g/dL (6.2-8.2)
[2021-09-25 12:27] VITALS: BMI 34.4
[2021-09-25] MEDS: AZITHROMYCIN 500 MG in SODIUM CHLORIDE 0.9% 250 ML IVPB SCH (14:10)
--- NOTE | 2021-09-25 14:30 | P.PN ---
Subjective Progress Note Date: 09/25/21 76-year-old male came in with complaints of shortness of breath cough has been going on for about the 2 weeks. Patient is hypoxic present has 6 L of oxygen. Found to have Covid 19 infection" is significant infiltrate on the chest x-ray with elevated liver enzymes elevated to calcitonin 4.89. Patient was also having diarrhea nausea vomiting. is bit dehydrated. Patient was a creatinine is 1.42 diabetes with us and is on metformin at home. 09/25/2021 Patient evaluated today sitting in the chair. He is answering any questions and asked appears very lethargic, oxygen saturation 88% on 8 liters high flow cannula last documented. Upon my assessment patient did appear lethargic and hypoxic did increase his oxygen to 10 L high flow and was able to obtain 93-94% saturation rating. Blood pressure 150/85, respirations 19, heart 87, afebrile. Patient is a history of aphasia which is normal for him. He was able to state that he is feeling okay and denies any shortness of breath. Labs today; sodium 145, potassium 4.2, BUN 31.2, creatinine 1.1, glucose in the 300s, AST 113, AST 63, alk phos 88. Patient continues on albuterol, IV azithromycin, Symbicort, IV Rocephin, dexamethasone, Lovenox, zinc, vitamins. Unable to complete a full review of systems due to patient's current mentation. All inpatient medications were reviewed and appropriate changes in these medications as dictated in the interval history and assessment and plan. PHYSICAL EXAMINATION: GENERAL: The patient is alert and oriented x1, mild respiratory distress. Well developed, well nourished. HEENT: Pupils are round and equally reacting to light. EOMI. No scleral icterus. No conjunctival pallor. Normocephalic, atraumatic. No pharyngeal erythema. No thyromegaly. CARDIOVASCULAR: S1 and S2 present. No murmurs, rubs, or gallops. PULMONARY: Coarse rhonchi bilateral ABDOMEN: Soft, nontender, nondistended, normoactive bowel sounds. No palpable organomegaly. MUSCULOSKELETAL: No joint swelling or deformity. EXTREMITIES: No cyanosis, clubbing, mild peripheral edema NEUROLOGICAL: Gross neurological examination did not reveal any focal deficits. SKIN: No rashes. Assessment and plan -Acute hypoxic respiratory failure secondary to COVID 19 pneumonia; Patient doesn't qualify for a Remdesivir. -Acute renal failure possibly secondary to intravascular integration dehydration patient was started on IV fluids, improved -Type 2 diabetes mellitus with hyperglycemia exacerbated by steroids -Hypertension -Hyperlipidemia -transaminitis secondary to Covid 19 infection -Elevated D-Dimer secondary to Covid 19 infection -Elevated inflammatory markers of Covid 19 -Obstructive sleep apnea patient doesn't use any oxygen at home patient quit smoking many years ago DVT prophylaxis: Lovenox Plan Continue IV antibiotics Continue decadron, zinc, vitamins, lovenox Continue bronchodilators Titrate oxygen as needed Increase novolog Continue all other supportive care Repeat chest xray today Labs/inflammatory markers in the AM Prognosis remains guarded for this patient Objective - Vital Signs Vital signs: Vital Signs Temp 98.7 F 09/25/21 06:46 Pulse 102 H 09/25/21 06:46 Resp 25 H 09/25/21 07:30 BP 187/107 09/25/21 06:46 Pulse Ox 89 L 09/25/21 06:46 Intake & Output 09/24/21 09/25/21 09/25/21 18:59 06:59 18:59 Intake Total 500 680 Output Total 700 Balance 500 -20 Weight 108.862 kg Intake: Intake, IV Titration 300 Amount Sodium Chloride 0.9% 1, 300 000 ml @ 75 mls/hr IV . [id number] [facility] Rx#:[id number] Oral 200 680 Output: Urine 700 Other: Voiding Method Urinal Urinal Indwelling Catheter Diaper Diaper # Voids 2 - Labs CBC & Chem 7: 09/24/21 04:40 09/25/21 06:14 Labs: Abnormal Lab Results - Last 24 Hours (Table) 09/24/21 09/24/21 09/24/21 Range/Units 04:40 04:40 12:31 RBC 4.00 L (4.40-5.60) X 10*6/uL Hgb 12.0 L (13.0-17.0) g/dL MCV 100.3 H (80.0-97.0) fL MCHC 29.9 L (32.0-37.0) g/dL Immature Gran # 0.11 H (0.00-0.04) X 10*3/uL Lymphocytes # 0.51 L (0.90-5.00) X 10*3/uL Eosinophils # 0.01 L (0.04-0.35) X 10*3/uL BUN 44.7 H (9.0-27.0) mg/dL Est GFR (CKD-EPI)AfAm 57.2 L (60.0-200.0) Est GFR (CKD-EPI)NonAf 49.3 L (60.0-200.0) BUN/Creatinine Ratio 32.39 H (12.00-20.00) Ratio Glucose 153 H (70-110) mg/dL POC Glucose (mg/dL) 162 H (75-99) mg/dL Calcium 8.2 L (8.7-10.3) mg/dL Total Bilirubin 1.40 H (0.30-1.20) mg/dL AST 85 H (14-35) U/L ALT 50 H (10-49) U/L Total Protein 5.6 L (6.2-8.2) g/dL Albumin 3.0 L (3.8-4.9) g/dL Albumin/Globulin Ratio 1.21 L (1.60-3.17) g/dL 09/24/21 09/24/21 09/24/21 Range/Units 14:00 16:40 21:21 RBC (4.40-5.60) X 10*6/uL Hgb (13.0-17.0) g/dL MCV (80.0-97.0) fL MCHC (32.0-37.0) g/dL Immature Gran # (0.00-0.04) X 10*3/uL Lymphocytes # (0.90-5.00) X 10*3/uL Eosinophils # (0.04-0.35) X 10*3/uL BUN (9.0-27.0) mg/dL Est GFR (CKD-EPI)AfAm (60.0-200.0) Est GFR (CKD-EPI)NonAf (60.0-200.0) BUN/Creatinine Ratio (12.00-20.00) Ratio Glucose (70-110) mg/dL POC Glucose (mg/dL) 146 H 244 H 153 H (75-99) mg/dL Calcium (8.7-10.3) mg/dL Total Bilirubin (0.30-1.20) mg/dL AST (14-35) U/L ALT (10-49) U/L Total Protein (6.2-8.2) g/dL Albumin (3.8-4.9) g/dL Albumin/Globulin Ratio (1.60-3.17) g/dL 09/25/21 Range/Units 07:54 RBC (4.40-5.60) X 10*6/uL Hgb (13.0-17.0) g/dL MCV (80.0-97.0) fL MCHC (32.0-37.0) g/dL Immature Gran # (0.00-0.04) X 10*3/uL Lymphocytes # (0.90-5.00) X 10*3/uL Eosinophils # (0.04-0.35) X 10*3/uL BUN (9.0-27.0) mg/dL Est GFR (CKD-EPI)AfAm (60.0-200.0) Est GFR (CKD-EPI)NonAf (60.0-200.0) BUN/Creatinine Ratio (12.00-20.00) Ratio Glucose (70-110) mg/dL POC Glucose (mg/dL) 133 H (75-99) mg/dL Calcium (8.7-10.3) mg/dL Total Bilirubin (0.30-1.20) mg/dL AST (14-35) U/L ALT (10-49) U/L Total Protein (6.2-8.2) g/dL Albumin (3.8-4.9) g/dL Albumin/Globulin Ratio (1.60-3.17) g/dL
--- NOTE | 2021-09-25 14:39 | P.PN ---
Subjective Progress Note Date: 09/25/21 Principal diagnosis: Dyspnea This is a 76-year-old male patient who follows with the [facility] as his primary care provider. He has a history of chronic obstructive pulmonary disease, hypertension, hyperlipidemia, diabetes mellitus, obstructive sleep apnea maintained on CPAP at a pressure of 11 cm of water with C-Flex of 3. He has a 2 week history of increasing shortness of breath, cough and congestion. He presented here to the emergency room yesterday for the same. X-ray reveals bilateral patchy infiltrates left greater than right consistent with COVID-19 pneumonia. White count 8.2. Hemoglobin 12.0. D-dimer 2.07. Sodium 140. Potassium 4.0. Creatinine 1.4. AST 85. ALT 50. LDH 1625. C-reactive protein 38.4. Pro-calcitonin 4.89. [place] virus by PCR positive. He's been initiated on Decadron, vitamin supplements. If he did receive Lovenox 100 mg subcu once yesterday. Normal saline at 75 ML's per hour. He is seen today in consultation in the emergency department. He is currently sitting up awake and alert. Somewhat slow to respond. Somewhat of a poor historian. His daughter is present in the room in supplies most of the information. Is currently maintaining O2 saturations in the low 90s on 6 L high flow nasal cannula. He's been afebrile. Slightly tachycardic. Hypertensive. On 09/25/2021 patient seen in follow-up on medical surgical floor, he is a poor historian, he is currently sitting up in the recliner, he is currently on 8 L of oxygen and his oxygen demand has increased compared to yesterday when he was on 6 L per high flow nasal cannula. Pulse ox is currently 88-89%, he is afebrile, remains hypertensive with blood pressure in the 180s over 107, with a mean of 133 bpm. D-dimer came back elevated at 2.07, lower extremity Dopplers showed no evidence of DVTs in both. His been afebrile, does have a congestive cough, overall his mentation is confused and sleepy. He is currently on the Decadron 6 mg daily, he is on inhaled bronchodilators. Cough is congested, patient does have underlying history of COPD, we will add empiric antibiotics today. We'll obtain follow up pro-calcitonin level. Initial pro-calcitonin level on admission was elevated to 4.89. Objective - Vital Signs Vital signs: Vital Signs Temp 98.1 F 09/25/21 13:20 Pulse 97 09/25/21 10:05 Resp 19 09/25/21 10:05 BP 150/85 09/25/21 10:05 Pulse Ox 88 L 09/25/21 10:05 Intake & Output 09/24/21 09/25/21 09/25/21 18:59 06:59 18:59 Intake Total 500 680 Output Total 700 Balance 500 -20 Weight 108.862 kg 108.862 kg Intake: Intake, IV Titration 300 Amount Sodium Chloride 0.9% 1, 300 000 ml @ 75 mls/hr IV . [id number] [facility] Rx#:[id number] Oral 200 680 Output: Urine 700 Other: Voiding Method Urinal Urinal Indwelling Catheter Diaper Diaper # Voids 2 - Exam GENERAL EXAM: Lethargic, but arousable, 76-year-old white male, on 8 L of oxy gen, with a pulse ox of 88-89% comfortable in no apparent distress. HEAD: Normocephalic/atraumatic. EYES: Normal reaction of pupils, equal size. Conjunctiva pink, sclera white. NOSE: Clear with pink turbinates. THROAT: No erythema or exudates. NECK: No masses, no JVD, no thyroid enlargement, no adenopathy. CHEST: No chest wall deformity. Symmetrical expansion. LUNGS: Equal air entry with diffuse crackles, diffuse rhonchi, patient has a congested cough CVS: Regular rate and rhythm, normal S1 and S2, no gallops, no murmurs, no rubs ABDOMEN: Soft, nontender. No hepatosplenomegaly, normal bowel sounds, no guarding or rigidity. EXTREMITIES: No clubbing, no edema, no cyanosis, 2+ pulses and upper and lower extremities. MUSCULOSKELETAL: Muscle strength and tone normal. SPINE: No scoliosis or deformity SKIN: No rashes CENTRAL NERVOUS SYSTEM: Lethargic, arousable, on 8 L of oxygen and pulse ox of 88 No focal deficits, tone is normal in all 4 extremities. - Labs CBC & Chem 7: 09/24/21 04:40 09/25/21 06:14 Labs: Abnormal Lab Results - Last 24 Hours (Table) 09/24/21 09/24/21 09/25/21 Range/Units 16:40 21:21 06:14 BUN 31.2 H (9.0-27.0) mg/dL BUN/Creatinine Ratio 28.36 H (12.00-20.00) Ratio Glucose 149 H (70-110) mg/dL POC Glucose (mg/dL) 244 H 153 H (75-99) mg/dL Calcium 8.5 L (8.7-10.3) mg/dL AST 113 H (14-35) U/L ALT 63 H (10-49) U/L Total Protein 5.8 L (6.2-8.2) g/dL Albumin 3.1 L (3.8-4.9) g/dL Albumin/Globulin Ratio 1.15 L (1.60-3.17) g/dL 09/25/21 09/25/21 Range/Units 07:54 11:42 BUN (9.0-27.0) mg/dL BUN/Creatinine Ratio (12.00-20.00) Ratio Glucose (70-110) mg/dL POC Glucose (mg/dL) 133 H 323 H (75-99) mg/dL Calcium (8.7-10.3) mg/dL AST (14-35) U/L ALT (10-49) U/L Total Protein (6.2-8.2) g/dL Albumin (3.8-4.9) g/dL Albumin/Globulin Ratio (1.60-3.17) g/dL Assessment and Plan Plan: Assessment: #1. Acute hypoxic respiratory failure related to acute COVID-19 pneumonia, possibility of underlying pneumonia is also considered based on elevated pro- calcitonin level of 4.89. Patient presented to the hospital on 09/23/2021 with 2 weeks of symptoms, he was outside the window for Remdesivir. He is not vacc inated against COVID-19. #2. Elevated pro-calcitonin level, suggesting possibility of underlying b acterial infection, will cover with the combination of Rocephin and azithromycin #3. Acute kidney injury related to dehydration and ATN, improved with IV hydration #4. Diabetes mellitus type 2 #5. Underlying history of sleep apnea on CPAP #6. Hypertension #7. Hyperlipidemia #8. Elevated d-dimer, with no evidence of DVT on lower extremity Dopplers Plan: Continue current medical treatment Patient is escalating in terms of Fio2 requirement We'll place on BiPAP support with pressures of 12 and 6 and FiO2 to keep O2 sats to 88% and above at bedtime and as needed during the day We'll continue current dose Decadron, Lovenox We will add azithromycin and Rocephin Obtain follow-up ON a level Renal function is improving, continue follow his clinical course Obtain follow-up inflammatory markers I performed a history & physical examination of the patient and discussed their management with my nurse practitioner, Terri Key. I reviewed the nurse practitioner's note and agree with the documented findings and plan of care. Lung sounds are positive for dim breath sounds throughout the lung baxter. The findings and the impression was discussed with the patient. I attest to the documentation by the nurse practitioner. Time with Patient: Less than 30
--- NOTE | 2021-09-25 15:06 | XR ---
EXAMINATION TYPE: XR chest 1V portable DATE OF EXAM: 09/25/2021 Comparison: 09/23/2021 Clinical History: 76-year-old male follow-up covid Findings: Patchy peripheral left mid and lower lung opacity, patchy bibasilar opacities. Additional right lower lung nodularity measuring 8 mm. No pleural effusion. Heart upper limits of normal in size. No signif icant change. Impression: 1. Stable bibasilar and left peripheral COVID infiltrates. 2. 8 mm nodular density projecting at the right lower lung. After the patient recovers, recommend CT chest to exclude underlying pulmonary nodule.
[2021-09-25 16:39] LABS: Glucose,Whole Blood 203 mg/dL (75-99)
[2021-09-25 21:13] LABS: Glucose,Whole Blood 269 mg/dL (75-99)
[2021-09-25] MEDS: LATANOPROST 0.005% OPHTH DROPS 2.5 ML BTL BOTH EYES SCH (23:17)
[2021-09-26] MEDS: SODIUM CHLORIDE 0.9% 1,000 ML IV SCH (00:27)
[2021-09-26 07:31] LABS: Glucose,Whole Blood 151 mg/dL (75-99)
[2021-09-26] MEDS: ASCORBIC ACID 500 MG TAB PO SCH (07:38)
[2021-09-26] MEDS: carvediloL 12.5 MG TAB PO SCH ×2 (07:39→21:17)
[2021-09-26] MEDS: TAMSULOSIN 0.4 MG CAP.ER.24H PO SCH (07:39)
[2021-09-26] MEDS: ZINC SULFATE 220 MG CAP PO SCH (07:39)
[2021-09-26] MEDS: CHOLECALCIFEROL 125 MCG (5000 IU) TABLET PO SCH (07:39)
[2021-09-26] MEDS: amLODIPine 5 MG TAB PO SCH (07:39)
[2021-09-26] MEDS: GABAPENTIN 300 MG CAP PO SCH ×3 (07:39→21:40)
[2021-09-26] MEDS: ENOXAPARIN 40 MG/0.4 ML SYRINGE SQ SCH (07:40)
[2021-09-26] MEDS: INSULIN ASPART (NovoLOG) 100 UNIT/ML VIAL SQ SCH ×7 (07:40→21:17)
[2021-09-26] MEDS: LIDOCAINE 5% PATCH TOPICAL SCH (07:40)
[2021-09-26] MEDS: DEXAMETHASONE SOD PHOSPHATE 10 MG/ML 1 ML VIAL IVP SCH (07:52)
[2021-09-26] MEDS: AZITHROMYCIN 500 MG in SODIUM CHLORIDE 0.9% 250 ML IVPB SCH (09:05)
[2021-09-26] MEDS: SYMBICORT 80-4.5 MCG INHALER INHALATION SCH ×2 (09:17→20:26)
[2021-09-26] MEDS: ALBUTEROL HFA INHALER INHALATION SCH ×4 (09:17→20:26)
[2021-09-26] MEDS: TIOTROPIUM 2.5 MCG INHALER INHALATION SCH (09:18)
[2021-09-26 10:09] LABS: HCT 39.6 % (39.6-50.0); HGB 12.4 g/dL (13.0-17.0); MCH 31.1 pg (27.0-32.0); MCHC 31.3 g/dL (32.0-37.0); MCV 99.2 fL (80.0-97.0); Mean Platelet Volume 10.3 fL (9.5-12.2); Platelet Count 297 X 10*3/uL (140-440); RBC 3.99 X 10*6/uL (4.40-5.60); RDW 14.6 % (11.5-14.5); WBC 8.12 X 10*3/uL (4.50-10.00)
[2021-09-26 10:45] LABS: Basophils # (A) 0.03 X 10*3/uL (0.00-0.10); Basophils % (A) 0.4 %; Eosinophils # (A) 0.01 X 10*3/uL (0.04-0.35); Eosinophils % (A) 0.1 %; Lymphocytes # (A) 0.75 X 10*3/uL (0.90-5.00); Lymphocytes % (A) 9.2 %; Monocytes # (A) 0.43 X 10*3/uL (0.20-1.00); Monocytes % (A) 5.3 %; Neutrophils # (A) 6.51 X 10*3/uL (1.80-7.70); Neutrophils % (A) 80.2 %
[2021-09-26 11:09] LABS: African American GFR (CKD) 70.5 (60.0-200.0); Albumin 2.8 g/dL (3.8-4.9); Albumin/Globulin Ratio 1.05 (1.60-3.17); BUN/Creat Ratio 28.28 Ratio (12.00-20.00); Blood Urea Nitrogen 32.8 mg/dL (9.0-27.0); C Reactive Protein 7.8 mg/dL (0.00-0.80); Calcium 8.3 mg/dL (8.7-10.3); Carbon Dioxide 23.6 mmol/L (20.0-27.5); Globulin 2.7 g/dL (1.6-3.3); Non-African American GFR(CKD) 60.8 (60.0-200.0); Total Bilirubin 0.7 mg/dL (0.30-1.20); Total Protein 5.4 g/dL (6.2-8.2)
--- NOTE | 2021-09-26 11:12 | P.PN ---
Subjective 76-year-old male came in with complaints of shortness of breath cough has been going on for about the 2 weeks. Patient is hypoxic present has 6 L of oxygen. Found to have Covid 19 infection" is significant infiltrate on the chest x-ray with elevated liver enzymes elevated to calcitonin 4.89. Patient was also having diarrhea nausea vomiting. is bit dehydrated. Patient was a creatinine is 1.42 diabetes with us and is on metformin at home. 09/25/2021 Patient evaluated today sitting in the chair. He is answering any questions and asked appears very lethargic, oxygen saturation 88% on 8 liters high flow cannula last documented. Upon my assessment patient did appear lethargic and hypoxic did increase his oxygen to 10 L high flow and was able to obtain 93-94% saturation rating. Blood pressure 150/85, respirations 19, heart 87, afebrile. Patient is a history of aphasia which is normal for him. He was able to state that he is feeling okay and denies any shortness of breath. Labs today; sodium 145, potassium 4.2, BUN 31.2, creatinine 1.1, glucose in the 300s, AST 113, AST 63, alk phos 88. Patient continues on albuterol, IV azithromycin, Symbicort, IV Rocephin, dexamethasone, Lovenox, zinc, vitamins. 09/26/2021 Patient is pretty status is bit worse compared to yesterday patient required BiPAP last night and patient is presently on high flow nasal cannula oxygen along with the nonrebreather Review of systems unable to obtain much of the review of systems as patient is drowsy All inpatient medications were reviewed and appropriate changes in these medications as dictated in the interval history and assessment and plan. PHYSICAL EXAMINATION: GENERAL: The patient is alert and oriented x1, mild respiratory distress. Well developed, well nourished. HEENT: Pupils are round and equally reacting to light. EOMI. No scleral icterus. No conjunctival pallor. Normocephalic, atraumatic. No pharyngeal erythema. No t hyromegaly. CARDIOVASCULAR: S1 and S2 present. No murmurs, rubs, or gallops. PULMONARY: Coarse rhonchi bilateral ABDOMEN: Soft, nontender, nondistended, normoactive bowel sounds. No palpable organomegaly. MUSCULOSKELETAL: No joint swelling or deformity. EXTREMITIES: No cyanosis, clubbing, mild peripheral edema NEUROLOGICAL: Gross neurological examination did not reveal any focal deficits. SKIN: No rashes. Assessment and plan -Acute hypoxic respiratory failure secondary to COVID 19 pneumonia; Patient doesn't qualify for a Remdesivir. -Acute renal failure possibly secondary to intravascular depletion and dehydration and received IV fluids patient is bit hyponatremic IV fluids were discontinued patient underwent [place] to drink water -Type 2 diabetes mellitus with hyperglycemia exacerbated by steroids and told her blood sugars -Hypertension -Hyperlipidemia -transaminitis secondary to Covid 19 infection -Elevated D-Dimer secondary to Covid 19 infection -Elevated inflammatory markers of Covid 19 -Obstructive sleep apnea patient doesn't use any oxygen at home patient quit smoking many years ago DVT prophylaxis: Lovenox Plan Continue IV antibiotics Continue decadron, zinc, vitamins, lovenox Continue bronchodilators Titrate oxygen as needed Present insulin regimen Continue all other supportive care Repeat chest xray today Labs/inflammatory markers in the AM Prognosis remains guarded for this patient Objective - Vital Signs Vital signs: Vital Signs Temp 99.4 F 09/26/21 08:00 Pulse 107 H 09/26/21 08:00 Resp 22 09/26/21 08:00 BP 128/74 09/26/21 08:00 Pulse Ox 89 L 09/26/21 08:00 Intake & Output 09/25/21 09/26/21 09/26/21 18:59 06:59 18:59 Output Total 1000 Balance -1000 Weight 108.862 kg Output: Urine 1000 Other: Voiding Method Indwelling Catheter Indwelling Catheter Indwelling Catheter # Bowel Movements 0 - Labs CBC & Chem 7: 09/26/21 05:54 09/26/21 05:54 Labs: Abnormal Lab Results - Last 24 Hours (Table) 09/25/21 09/25/21 09/25/21 Range/Units 06:14 11:42 15:44 RBC (4.40-5.60) X 10*6/uL Hgb (13.0-17.0) g/dL MCV (80.0-97.0) fL MCHC (32.0-37.0) g/dL RDW (11.5-14.5) % Immature Gran # (0.00-0.04) X 10*3/uL Lymphocytes # (0.90-5.00) X 10*3/uL Eosinophils # (0.04-0.35) X 10*3/uL Sodium (135-145) mmol/L Chloride (96-109) mmol/L BUN 31.2 H (9.0-27.0) mg/dL BUN/Creatinine Ratio 28.36 H (12.00-20.00) Ratio Glucose 149 H (70-110) mg/dL POC Glucose (mg/dL) 323 H (75-99) mg/dL Calcium 8.5 L (8.7-10.3) mg/dL Ferritin (22.0-322.0) ng/mL AST 113 H (14-35) U/L ALT 63 H (10-49) U/L Lactate Dehydrogenase (120-246) U/L C-Reactive Protein (0.00-0.80) mg/dL Total Protein 5.8 L (6.2-8.2) g/dL Albumin 3.1 L (3.8-4.9) g/dL Albumin/Globulin Ratio 1.15 L (1.60-3.17) g/dL Procalcitonin 1.53 H (0.02-0.09) ng/mL 09/25/21 09/25/21 09/26/21 Range/Units 16:37 21:07 05:54 RBC 3.99 L (4.40-5.60) X 10*6/uL Hgb 12.4 L (13.0-17.0) g/dL MCV 99.2 H (80.0-97.0) fL MCHC 31.3 L (32.0-37.0) g/dL RDW 14.6 H (11.5-14.5) % Immature Gran # 0.39 H (0.00-0.04) X 10*3/uL Lymphocytes # 0.75 L (0.90-5.00) X 10*3/uL Eosinophils # 0.01 L (0.04-0.35) X 10*3/uL Sodium (135-145) mmol/L Chloride (96-109) mmol/L BUN (9.0-27.0) mg/dL BUN/Creatinine Ratio (12.00-20.00) Ratio Glucose (70-110) mg/dL POC Glucose (mg/dL) 203 H 269 H (75-99) mg/dL Calcium (8.7-10.3) mg/dL Ferritin (22.0-322.0) ng/mL AST (14-35) U/L ALT (10-49) U/L Lactate Dehydrogenase (120-246) U/L C-Reactive Protein (0.00-0.80) mg/dL Total Protein (6.2-8.2) g/dL Albumin (3.8-4.9) g/dL Albumin/Globulin Ratio (1.60-3.17) g/dL Procalcitonin (0.02-0.09) ng/mL 09/26/21 09/26/21 Range/Units 05:54 07:30 RBC (4.40-5.60) X 10*6/uL Hgb (13.0-17.0) g/dL MCV (80.0-97.0) fL MCHC (32.0-37.0) g/dL RDW (11.5-14.5) % Immature Gran # (0.00-0.04) X 10*3/uL Lymphocytes # (0.90-5.00) X 10*3/uL Eosinophils # (0.04-0.35) X 10*3/uL Sodium 147 H (135-145) mmol/L Chloride 111 H (96-109) mmol/L BUN 32.8 H (9.0-27.0) mg/dL BUN/Creatinine Ratio 28.28 H (12.00-20.00) Ratio Glucose 147 H (70-110) mg/dL POC Glucose (mg/dL) 151 H (75-99) mg/dL Calcium 8.3 L (8.7-10.3) mg/dL Ferritin 1227.0 H (22.0-322.0) ng/mL AST 65 H (14-35) U/L ALT 54 H (10-49) U/L Lactate Dehydrogenase 477 H (120-246) U/L C-Reactive Protein 7.80 H (0.00-0.80) mg/dL Total Protein 5.4 L (6.2-8.2) g/dL Albumin 2.8 L (3.8-4.9) g/dL Albumin/Globulin Ratio 1.05 L (1.60-3.17) g/dL Procalcitonin (0.02-0.09) ng/mL
[2021-09-26 11:42] LABS: Glucose,Whole Blood 172 mg/dL (75-99)
--- NOTE | 2021-09-26 14:35 | P.PN ---
Subjective Progress Note Date: 09/26/21 Principal diagnosis: Dyspnea This is a 76-year-old male patient who follows with the [facility] as his primary care provider. He has a history of chronic obstructive pulmonary disease, hypertension, hyperlipidemia, diabetes mellitus, obstructive sleep apnea maintained on CPAP at a pressure of 11 cm of water with C-Flex of 3. He has a 2 week history of increasing shortness of breath, cough and congestion. He presented here to the emergency room yesterday for the same. X-ray reveals bilateral patchy infiltrates left greater than right consistent with COVID-19 pneumonia. White count 8.2. Hemoglobin 12.0. D-dimer 2.07. Sodium 140. Potassium 4.0. Creatinine 1.4. AST 85. ALT 50. LDH 1625. C-reactive protein 38.4. Pro-calcitonin 4.89. [place] virus by PCR positive. He's been initiated on Decadron, vitamin supplements. If he did receive Lovenox 100 mg subcu once yesterday. Normal saline at 75 ML's per hour. He is seen today in consultation in the emergency department. He is currently sitting up awake and alert. Somewhat slow to respond. Somewhat of a poor historian. His daughter is present in the room in supplies most of the information. Is currently maintaining O2 saturations in the low 90s on 6 L high flow nasal cannula. He's been afebrile. Slightly tachycardic. Hypertensive. On 09/25/2021 patient seen in follow-up on medical surgical floor, he is a poor historian, he is currently sitting up in the recliner, he is currently on 8 L of oxygen and his oxygen demand has increased compared to yesterday when he was on 6 L per high flow nasal cannula. Pulse ox is currently 88-89%, he is afebrile, remains hypertensive with blood pressure in the 180s over 107, with a mean of 133 bpm. D-dimer came back elevated at 2.07, lower extremity Dopplers showed no evidence of DVTs in both. His been afebrile, does have a congestive cough, overall his mentation is confused and sleepy. He is currently on the Decadron 6 mg daily, he is on inhaled bronchodilators. Cough is congested, patient does have underlying history of COPD, we will add empiric antibiotics today. We'll obtain follow up pro-calcitonin level. Initial pro-calcitonin level on admission was elevated to 4.89. On 09/26/2021 patient seen in follow-up medical surgical floor. He is confused, but his responsive, he denies any acute distress. He was taken off the BiPAP support this morning, he is currently on 15 L high flow oxygen, and his pulse ox is 89-91%, he removes his oxygen at times, desaturates, becomes more confused. Low-grade fevers in the last 24 hours with a temp of 99.5F. Lung sounds reveal diffuse coarse inspiratory crackles throughout the lung baxter. No complaints of chest pain, occasional cough, no phlegm production. His chest x-ray today shows stable bibasilar and left peripheral COVID infiltrates, and 8 mm nodular density at the right lower lung with a recommendation of follow-up CT scanning of the chest to exclude underlying pulmonary nodule. Patient continues on Rocephin and azithromycin for empiric antibiotic coverage, he is on Decadron 6 mg daily, he is on prophylactic dose of Lovenox. Today's labs have been reviewed, his white blood cell count 8.12, hemoglobin is 12.4, serum sodium is 147, potassium is 4.0, chloride is 111, B1 is 32, creatinine is 1.2, ferritin level is improving and is down to 1227, LDH is down to 477, improved and CRP is also improving and is down to 7.8, follow up pro-calcitonin was improved and was down to 1.53. Objective - Vital Signs Vital signs: Vital Signs Temp 99.4 F 09/26/21 08:00 Pulse 107 H 09/26/21 08:00 Resp 22 09/26/21 08:00 BP 128/74 09/26/21 08:00 Pulse Ox 89 L 09/26/21 08:00 Intake & Output 09/25/21 09/26/21 09/26/21 18:59 06:59 18:59 Output Total 1000 Balance -1000 Weight 108.862 kg Output: Urine 1000 Other: Voiding Method Indwelling Catheter Indwelling Catheter Indwelling Catheter # Bowel Movements 0 - Exam GENERAL EXAM: Awake but confused 76-year-old white male, on 15 L of oxygen, with a pulse ox of 88-89% comfortable in no apparent distress. HEAD: Normocephalic/atraumatic. EYES: Normal reaction of pupils, equal size. Conjunctiva pink, sclera white. NOSE: Clear with pink turbinates. THROAT: No erythema or exudates. NECK: No masses, no JVD, no thyroid enlargement, no adenopathy. CHEST: No chest wall deformity. Symmetrical expansion. LUNGS: Equal air entry with diffuse crackles, diffuse rhonchi, patient has a congested cough CVS: Regular rate and rhythm, normal S1 and S2, no gallops, no murmurs, no rubs ABDOMEN: Soft, nontender. No hepatosplenomegaly, normal bowel sounds, no guardi ng or rigidity. EXTREMITIES: No clubbing, no edema, no cyanosis, 2+ pulses and upper and lower extremities. MUSCULOSKELETAL: Muscle strength and tone normal. SPINE: No scoliosis or deformity SKIN: No rashes CENTRAL NERVOUS SYSTEM: Awake, confused,, on 8 L of oxygen and pulse ox of 88 No focal deficits, tone is normal in all 4 extremities. - Labs CBC & Chem 7: 09/26/21 05:54 09/26/21 05:54 Labs: Abnormal Lab Results - Last 24 Hours (Table) 09/25/21 09/25/21 09/25/21 Range/Units 15:44 16:37 21:07 RBC (4.40-5.60) X 10*6/uL Hgb (13.0-17.0) g/dL MCV (80.0-97.0) fL MCHC (32.0-37.0) g/dL RDW (11.5-14.5) % Immature Gran # (0.00-0.04) X 10*3/uL Lymphocytes # (0.90-5.00) X 10*3/uL Eosinophils # (0.04-0.35) X 10*3/uL Sodium (135-145) mmol/L Chloride (96-109) mmol/L BUN (9.0-27.0) mg/dL BUN/Creatinine Ratio (12.00-20.00) Ratio Glucose (70-110) mg/dL POC Glucose (mg/dL) 203 H 269 H (75-99) mg/dL Calcium (8.7-10.3) mg/dL Ferritin (22.0-322.0) ng/mL AST (14-35) U/L ALT (10-49) U/L Lactate Dehydrogenase (120-246) U/L C-Reactive Protein (0.00-0.80) mg/dL Total Protein (6.2-8.2) g/dL Albumin (3.8-4.9) g/dL Albumin/Globulin Ratio (1.60-3.17) g/dL Procalcitonin 1.53 H (0.02-0.09) ng/mL 09/26/21 09/26/21 09/26/21 Range/Units 05:54 05:54 07:30 RBC 3.99 L (4.40-5.60) X 10*6/uL Hgb 12.4 L (13.0-17.0) g/dL MCV 99.2 H (80.0-97.0) fL MCHC 31.3 L (32.0-37.0) g/dL RDW 14.6 H (11.5-14.5) % Immature Gran # 0.39 H (0.00-0.04) X 10*3/uL Lymphocytes # 0.75 L (0.90-5.00) X 10*3/uL Eosinophils # 0.01 L (0.04-0.35) X 10*3/uL Sodium 147 H (135-145) mmol/L Chloride 111 H (96-109) mmol/L BUN 32.8 H (9.0-27.0) mg/dL BUN/Creatinine Ratio 28.28 H (12.00-20.00) Ratio Glucose 147 H (70-110) mg/dL POC Glucose (mg/dL) 151 H (75-99) mg/dL Calcium 8.3 L (8.7-10.3) mg/dL Ferritin 1227.0 H (22.0-322.0) ng/mL AST 65 H (14-35) U/L ALT 54 H (10-49) U/L Lactate Dehydrogenase 477 H (120-246) U/L C-Reactive Protein 7.80 H (0.00-0.80) mg/dL Total Protein 5.4 L (6.2-8.2) g/dL Albumin 2.8 L (3.8-4.9) g/dL Albumin/Globulin Ratio 1.05 L (1.60-3.17) g/dL Procalcitonin (0.02-0.09) ng/mL 09/26/21 Range/Units 11:41 RBC (4.40-5.60) X 10*6/uL Hgb (13.0-17.0) g/dL MCV (80.0-97.0) fL MCHC (32.0-37.0) g/dL RDW (11.5-14.5) % Immature Gran # (0.00-0.04) X 10*3/uL Lymphocytes # (0.90-5.00) X 10*3/uL Eosinophils # (0.04-0.35) X 10*3/uL Sodium (135-145) mmol/L Chloride (96-109) mmol/L BUN (9.0-27.0) mg/dL BUN/Creatinine Ratio (12.00-20.00) Ratio Glucose (70-110) mg/dL POC Glucose (mg/dL) 172 H (75-99) mg/dL Calcium (8.7-10.3) mg/dL Ferritin (22.0-322.0) ng/mL AST (14-35) U/L ALT (10-49) U/L Lactate Dehydrogenase (120-246) U/L C-Reactive Protein (0.00-0.80) mg/dL Total Protein (6.2-8.2) g/dL Albumin (3.8-4.9) g/dL Albumin/Globulin Ratio (1.60-3.17) g/dL Procalcitonin (0.02-0.09) ng/mL Assessment and Plan Plan: Assessment: #1. Acute hypoxic respiratory failure related to acute COVID-19 pneumonia, possibility of underlying pneumonia is also considered based on elevated pro- calcitonin level of 4.89. Patient presented to the hospital on 09/23/2021 with 2 weeks of symptoms, he was outside the window for Remdesivir. He is not vaccinated against COVID-19. #2. Elevated pro-calcitonin level, suggesting possibility of underlying bacterial infection, will cover with the combination of Rocephin and azithromycin, improving is down to 1.53 #3. Acute kidney injury related to dehydration and ATN, improved with IV hydr ation #4. Diabetes mellitus type 2 #5. Underlying history of sleep apnea on CPAP #6. Hypertension #7. Hyperlipidemia #8. Elevated d-dimer, with no evidence of DVT on lower extremity Dopplers #9. Hypernatremia, related to poor oral intake, we'll start the patient on D5W at 50 ML per hour #10. Pulmonary nodule, measuring 8 mm projecting at the right lower lobe, will need to be followed up on the CT of the chest with contrast Plan: BiPAP support as needed during the day, and at bedtime May provide breaks with high flow oxygen Patient is confused, frequently removes oxygen Provide supervision and maintain safety precautions Chest x-ray has been reviewed showing stable bibasilar and left peripheral COVID infiltrates A subcentimeter nodular density was noted in the right lower lung this will be followed up on the CT of the chest with contrast Continue current dose Decadron Continue empiric antibiotics Continue inhaled bronchodilators Inflammatory markers are improving Pro-calcitonin level is improving Serum sodium is elevated we will add D5W at 50 ML per hour Follow-up labs tomorrow including electrolytes, renal profile Continue prophylactic dose Lovenox Follow-up d-dimer tomorrow I performed a history & physical examination of the patient and discussed their management with my nurse practitioner, Terri Key. I reviewed the nurse practitioner's note and agree with the documented findings and plan of care. Lung sounds are positive for dim breath sounds throughout the lung baxter. The findings and the impression was discussed with the patient. I attest to the documentation by the nurse practitioner. Time with Patient: Less than 30
[2021-09-26] MEDS: DEXTROSE 5% IN WATER 1,000 ML IV SCH (14:56)
[2021-09-26 16:50] LABS: Glucose,Whole Blood 165 mg/dL (75-99)
[2021-09-26 20:36] LABS: Glucose,Whole Blood 189 mg/dL (75-99)
[2021-09-26] MEDS: LATANOPROST 0.005% OPHTH DROPS 2.5 ML BTL BOTH EYES SCH (23:16)
[2021-09-27] MEDS ORDERED: MORPHINE SULFATE 2 MG/ML SYRINGE IVP STA (00:04)
[2021-09-27 06:58] LABS: Glucose,Whole Blood 203 mg/dL (75-99)
[2021-09-27] MEDS: ALBUTEROL HFA INHALER INHALATION SCH ×4 (08:18→20:49)
[2021-09-27] MEDS: SYMBICORT 80-4.5 MCG INHALER INHALATION SCH ×2 (08:18→20:49)
[2021-09-27] MEDS: TIOTROPIUM 2.5 MCG INHALER INHALATION SCH (08:18)
[2021-09-27] MEDS: LIDOCAINE 5% PATCH TOPICAL SCH (08:48)
[2021-09-27] MEDS: CHOLECALCIFEROL 125 MCG (5000 IU) TABLET PO SCH (08:49)
[2021-09-27] MEDS: ENOXAPARIN 40 MG/0.4 ML SYRINGE SQ SCH (08:49)
[2021-09-27] MEDS: carvediloL 12.5 MG TAB PO SCH ×2 (08:49→20:21)
[2021-09-27] MEDS: ZINC SULFATE 220 MG CAP PO SCH (08:49)
[2021-09-27] MEDS: TAMSULOSIN 0.4 MG CAP.ER.24H PO SCH (08:49)
[2021-09-27] MEDS: GABAPENTIN 300 MG CAP PO SCH ×3 (08:49→20:21)
[2021-09-27] MEDS: INSULIN ASPART (NovoLOG) 100 UNIT/ML VIAL SQ SCH ×7 (08:49→21:13)
[2021-09-27] MEDS: ASCORBIC ACID 500 MG TAB PO SCH (08:49)
[2021-09-27] MEDS: amLODIPine 5 MG TAB PO SCH (08:50)
[2021-09-27] MEDS: DEXAMETHASONE SOD PHOSPHATE 10 MG/ML 1 ML VIAL IVP SCH (08:50)
[2021-09-27 09:26] LABS: HCT 37.6 % (39.6-50.0); HGB 11.8 g/dL (13.0-17.0); MCH 31.2 pg (27.0-32.0); MCHC 31.4 g/dL (32.0-37.0); MCV 99.5 fL (80.0-97.0); Mean Platelet Volume 10.3 fL (9.5-12.2); Platelet Count 307 X 10*3/uL (140-440); RBC 3.78 X 10*6/uL (4.40-5.60); RDW 14.7 % (11.5-14.5); WBC 8.43 X 10*3/uL (4.50-10.00)
[2021-09-27] MEDS: AZITHROMYCIN 500 MG in SODIUM CHLORIDE 0.9% 250 ML IVPB SCH (09:32)
[2021-09-27 10:17] LABS: African American GFR (CKD) 83.4 (60.0-200.0); Albumin 2.7 g/dL (3.8-4.9); Anion Gap 12.7 mmol/L (10.00-18.00); BUN/Creat Ratio 28.71 Ratio (12.00-20.00); C Reactive Protein 12.1 mg/dL (0.00-0.80); Calcium 8.4 mg/dL (8.7-10.3); Carbon Dioxide 23.6 mmol/L (20.0-27.5); Globulin 2.7 g/dL (1.6-3.3); Non-African American GFR(CKD) 71.9 (60.0-200.0); Potassium 3.6 mmol/L (3.5-5.5); Total Bilirubin 0.6 mg/dL (0.30-1.20); Total Protein 5.4 g/dL (6.2-8.2)
[2021-09-27 11:19] LABS: Glucose,Whole Blood 201 mg/dL (75-99)
[2021-09-27] MEDS: DEXTROSE 5% IN WATER 1,000 ML IV SCH (11:48)
--- NOTE | 2021-09-27 12:40 | P.PN ---
Subjective Progress Note Date: 09/27/21 Principal diagnosis: Dyspnea This is a 76-year-old male patient who follows with the [facility] system as his primary care provider. He has a history of chronic obstructive pulmonary disease, hypertension, hyperlipidemia, diabetes mellitus, obstructive sleep apnea maintained on CPAP at a pressure of 11 cm of water with C-Flex of 3. He has a 2 week history of increasing shortness of breath, cough and congestion. He presented here to the emergency room yesterday for the same. X-ray reveals bilateral patchy infiltrates left greater than right consistent with COVID-19 pneumonia. White count 8.2. Hemoglobin 12.0. D-dimer 2.07. Sodium 140. Potassium 4.0. Creatinine 1.4. AST 85. ALT 50. LDH 1625. C-reactive protein 38.4. Pro-calcitonin 4.89. [place] virus by PCR positive. He's been initiated on Decadron, vitamin supplements. If he did receive Lovenox 100 mg subcu once yesterday. Normal saline at 75 ML's per hour. He is seen today in consultation in the emergency department. He is currently sitting up awake and alert. Somewhat slow to respond. Somewhat of a poor historian. His daughter is present in the room in supplies most of the information. Is currently maintaining O2 saturations in the low 90s on 6 L high flow nasal cannula. He's been afebrile. Slightly tachycardic. Hypertensive. On 09/25/2021 patient seen in follow-up on medical surgical floor, he is a poor historian, he is currently sitting up in the recliner, he is currently on 8 L of oxygen and his oxygen demand has increased compared to yesterday when he was on 6 L per high flow nasal cannula. Pulse ox is currently 88-89%, he is afebrile, remains hypertensive with blood pressure in the 180s over 107, with a mean of 133 bpm. D-dimer came back elevated at 2.07, lower extremity Dopplers showed no evidence of DVTs in both. His been afebrile, does have a congestive cough, overall his mentation is confused and sleepy. He is currently on the Decadron 6 mg daily, he is on inhaled bronchodilators. Cough is congested, patient does have underlying history of COPD, we will add empiric antibiotics today. We'll obtain follow up pro-calcitonin level. Initial pro-calcitonin level on admission was elevated to 4.89. On 09/26/2021 patient seen in follow-up medical surgical floor. He is confused, but his responsive, he denies any acute distress. He was taken off the BiPAP support this morning, he is currently on 15 L high flow oxygen, and his pulse ox is 89-91%, he removes his oxygen at times, desaturates, becomes more confused. Low-grade fevers in the last 24 hours with a temp of 99.5F. Lung sounds reveal diffuse coarse inspiratory crackles throughout the lung baxter. No complaints of chest pain, occasional cough, no phlegm production. His chest x-ray today shows stable bibasilar and left peripheral COVID infiltrates, and 8 mm nodular density at the right lower lung with a recommendation of follow-up CT scanning of the chest to exclude underlying pulmonary nodule. Patient continues on Rocephin and azithromycin for empiric antibiotic coverage, he is on Decadron 6 mg daily, he is on prophylactic dose of Lovenox. Today's labs have been reviewed, his white blood cell count 8.12, hemoglobin is 12.4, serum sodium is 147, potassium is 4.0, chloride is 111, B1 is 32, creatinine is 1.2, ferritin level is improving and is down to 1227, LDH is down to 477, improved and CRP is also improving and is down to 7.8, follow up pro-calcitonin was improved and was down to 1.53. On 09/27/2021 patient seen in follow-up on medical surgical floor. He is curr ently sleeping, he is on BiPAP support, which he looks very comfortable on, breathing comfortably, BiPAP settings of 12 and 6 and FiO2 of 70%, his pulse ox is Usually better on BiPAP at 95%. On 15 L per high flow nasal cannula his pulse ox is 186%, afebrile, hemodynamically stable, still confused, not agitated. His last chest x-ray from 09/25/2001 showed stable bibasilar and left peripheral COVID infiltrates. Patient was also suspected to have bacteria superinfection, he was placed on azithromycin and Rocephin, his pro-calcitonin was improving, and is down to 0.73 on today's labs from the original value of 4.89 on 09/23/2021. White count is 8.4, hemoglobin is 0.8, his d-dimer is 3.19, sodium is 146, patient remains on D5W at 50 ML per hour, potassium 3.6, B1 is 29, creatinine is 1.His LDH is slightly improved and is down to 1164, CRP is 12.1, improved since admission. Appears to be in no acute distress. Appetite is poor, he is only consuming about 25% of his meals. Objective - Vital Signs Vital signs: Vital Signs Temp 98.8 F 09/27/21 08:59 Pulse 107 H 09/27/21 08:59 Resp 17 09/27/21 08:59 BP 146/87 09/27/21 08:59 Pulse Ox 86 L 09/27/21 08:59 Intake & Output 09/26/21 09/27/21 09/27/21 18:59 06:59 18:59 Intake Total 1100 240 Output Total 800 Balance 300 240 Weight 108.862 kg Intake: IV 900 Sodium Chloride 0.9% 1, 900 000 ml @ 75 mls/hr IV . [id number] [facility] Rx#:[id number] Oral 200 240 Output: Urine 800 Other: Voiding Method Indwelling Catheter Indwelling Catheter Indwelling Catheter - Exam GENERAL EXAM: Lethargic, 76-year-old white male, on BiPAP support with pressures of 12 and 6 and FiO2 of 70%, with a pulse ox of 95%, breathing comfortably, HEAD: Normocephalic/atraumatic. EYES: Normal reaction of pupils, equal size. Conjunctiva pink, sclera white. NOSE: Clear with pink turbinates. THROAT: No erythema or exudates. NECK: No masses, no JVD, no thyroid enlargement, no adenopathy. CHEST: No chest wall deformity. Symmetrical expansion. LUNGS: Equal air entry with diffuse crackles, diffuse rhonchi, patient has a congested cough CVS: Regular rate and rhythm, normal S1 and S2, no gallops, no murmurs, no rubs ABDOMEN: Soft, nontender. No hepatosplenomegaly, normal bowel sounds, no guarding or rigidity. EXTREMITIES: No clubbing, no edema, no cyanosis, 2+ pulses and upper and lower extremities. MUSCULOSKELETAL: Muscle strength and tone normal. SPINE: No scoliosis or deformity SKIN: No rashes CENTRAL NERVOUS SYSTEM: Confused, lethargic, currently on BiPAP support,No focal deficits, tone is normal in all 4 extremities. - Labs CBC & Chem 7: 09/27/21 06:45 09/27/21 06:46 Labs: Abnormal Lab Results - Last 24 Hours (Table) 09/26/21 09/26/21 09/27/21 Range/Units 16:49 20:35 06:38 RBC (4.40-5.60) X 10*6/uL Hgb (13.0-17.0) g/dL Hct (39.6-50.0) % MCV (80.0-97.0) fL MCHC (32.0-37.0) g/dL RDW (11.5-14.5) % D-Dimer 3.19 H (<0.60) mg/L FEU Sodium (135-145) mmol/L Chloride (96-109) mmol/L BUN (9.0-27.0) mg/dL BUN/Creatinine Ratio (12.00-20.00) Ratio Glucose (70-110) mg/dL POC Glucose (mg/dL) 165 H 189 H (75-99) mg/dL Calcium (8.7-10.3) mg/dL Ferritin (22.0-322.0) ng/mL AST (14-35) U/L ALT (10-49) U/L Lactate Dehydrogenase (120-246) U/L C-Reactive Protein (0.00-0.80) mg/dL Total Protein (6.2-8.2) g/dL Albumin (3.8-4.9) g/dL Albumin/Globulin Ratio (1.60-3.17) g/dL Procalcitonin (0.02-0.09) ng/mL 09/27/21 09/27/21 09/27/21 Range/Units 06:45 06:45 06:46 RBC 3.78 L (4.40-5.60) X 10*6/uL Hgb 11.8 L (13.0-17.0) g/dL Hct 37.6 L (39.6-50.0) % MCV 99.5 H (80.0-97.0) fL MCHC 31.4 L (32.0-37.0) g/dL RDW 14.7 H (11.5-14.5) % D-Dimer (<0.60) mg/L FEU Sodium 146 H (135-145) mmol/L Chloride 110 H (96-109) mmol/L BUN 29.0 H (9.0-27.0) mg/dL BUN/Creatinine Ratio 28.71 H (12.00-20.00) Ratio Glucose 163 H (70-110) mg/dL POC Glucose (mg/dL) (75-99) mg/dL Calcium 8.4 L (8.7-10.3) mg/dL Ferritin 1164.0 H (22.0-322.0) ng/mL AST 50 H (14-35) U/L ALT 52 H (10-49) U/L Lactate Dehydrogenase 437 H (120-246) U/L C-Reactive Protein 12.10 H (0.00-0.80) mg/dL Total Protein 5.4 L (6.2-8.2) g/dL Albumin 2.7 L (3.8-4.9) g/dL Albumin/Globulin Ratio 1.00 L (1.60-3.17) g/dL Procalcitonin 0.73 H (0.02-0.09) ng/mL 09/27/21 09/27/21 Range/Units 06:56 11:09 RBC (4.40-5.60) X 10*6/uL Hgb (13.0-17.0) g/dL Hct (39.6-50.0) % MCV (80.0-97.0) fL MCHC (32.0-37.0) g/dL RDW (11.5-14.5) % D-Dimer (<0.60) mg/L FEU Sodium (135-145) mmol/L Chloride (96-109) mmol/L BUN (9.0-27.0) mg/dL BUN/Creatinine Ratio (12.00-20.00) Ratio Glucose (70-110) mg/dL POC Glucose (mg/dL) 203 H 201 H (75-99) mg/dL Calcium (8.7-10.3) mg/dL Ferritin (22.0-322.0) ng/mL AST (14-35) U/L ALT (10-49) U/L Lactate Dehydrogenase (120-246) U/L C-Reactive Protein (0.00-0.80) mg/dL Total Protein (6.2-8.2) g/dL Albumin (3.8-4.9) g/dL Albumin/Globulin Ratio (1.60-3.17) g/dL Procalcitonin (0.02-0.09) ng/mL Assessment and Plan Plan: Assessment: #1. Acute hypoxic respiratory failure related to acute COVID-19 pneumonia, possibility of underlying pneumonia is also considered based on elevated pro- calcitonin level of 4.89. Patient presented to the hospital on 09/23/2021 with 2 weeks of symptoms, he was outside the window for Remdesivir. He is not vaccinated against COVID-19. #2. Elevated pro-calcitonin level, suggesting possibility of underlying bacterial infection, will cover with the combination of Rocephin and azithromycin, improving is down to 0.73 #3. Acute kidney injury related to dehydration and ATN, improved with IV hydration #4. Diabetes mellitus type 2 #5. Underlying history of sleep apnea on CPAP #6. Hypertension #7. Hyperlipidemia #8. Elevated d-dimer, with no evidence of DVT on lower extremity Dopplers #9. Hypernatremia, related to poor oral intake, slightly improved, we will increase D5W to 100 ML per hour #10. Pulmonary nodule, measuring 8 mm projecting at the right lower lobe, will need to be followed up on the CT of the chest with contrast Plan: Continue BiPAP support, and patient tolerates BiPAP support quite well, and usually O2 saturations are better on positive pressure ventilation The provide high flow oxygen trials per nasal cannula Continue antibiotics, patient has been afebrile, Pro-calcitonin level is improving Continue inhaled bronchodilators Continue current dose Decadron Oral intake remains poor Today's labs have been reviewed, serum sodium slightly improved however still abnormal We will increase D5W to 100 ML per hour Obtain labs in the morning including electrolytes, renal profile, follow-up d- dimer Overall prognosis is guarded I performed a history & physical examination of the patient and discussed their management with my nurse practitioner, Terri Key. I reviewed the nurse practitioner's note and agree with the documented findings and plan of care. Lung sounds are positive for dim breath sounds throughout the lung baxter. The findings and the impression was discussed with the patient. I attest to the documentation by the nurse practitioner. Time with Patient: Less than 30
--- NOTE | 2021-09-27 13:07 | P.PN ---
Subjective 76-year-old male came in with complaints of shortness of breath cough has been going on for about the 2 weeks. Patient is hypoxic present has 6 L of oxygen. Found to have Covid 19 infection" is significant infiltrate on the chest x-ray with elevated liver enzymes elevated to calcitonin 4.89. Patient was also having diarrhea nausea vomiting. is bit dehydrated. Patient was a creatinine is 1.42 diabetes with us and is on metformin at home. 09/25/2021 Patient evaluated today sitting in the chair. He is answering any questions and asked appears very lethargic, oxygen saturation 88% on 8 liters high flow cannula last documented. Upon my assessment patient did appear lethargic and hypoxic did increase his oxygen to 10 L high flow and was able to obtain 93-94% saturation rating. Blood pressure 150/85, respirations 19, heart 87, afebrile. Patient is a history of aphasia which is normal for him. He was able to state that he is feeling okay and denies any shortness of breath. Labs today; sodium 145, potassium 4.2, BUN 31.2, creatinine 1.1, glucose in the 300s, AST 113, AST 63, alk phos 88. Patient continues on albuterol, IV azithromycin, Symbicort, IV Rocephin, dexamethasone, Lovenox, zinc, vitamins. 09/26/2021 Patient is pretty status is bit worse compared to yesterday patient required BiPAP last night and patient is presently on high flow nasal cannula oxygen along with the nonrebreather 09/27/2021 Patient's respiratory status remains the same. Patient is still requiring BiPAP. Patient although feels better subjectively. Constitutional: Denied any fatigue denied any fever. Cardio vascular: denied any chest pain, palpitations Gastrointestinal denied any nausea vomiting Pulmonary: Denied any shortness of breath cough Neurologic denied any new focal deficits All inpatient medications were reviewed and appropriate changes in these medications as dictated in the interval history and assessment and plan. PHYSICAL EXAMINATION: GENERAL: The patient is alert and oriented x1, mild respiratory distress. Well developed, well nourished. HEENT: Pupils are round and equally reacting to light. EOMI. No scleral icterus. No conjunctival pallor. Normocephalic, atraumatic. No pharyngeal erythema. No thyromegaly. CARDIOVASCULAR: S1 and S2 present. No murmurs, rubs, or gallops. PULMONARY: Coarse rhonchi bilateral ABDOMEN: Soft, nontender, nondistended, normoactive bowel sounds. No palpable organomegaly. MUSCULOSKELETAL: No joint swelling or deformity. EXTREMITIES: No cyanosis, clubbing, mild peripheral edema NEUROLOGICAL: Gross neurological examination did not reveal any focal deficits. SKIN: No rashes. Assessment and plan -Acute hypoxic respiratory failure secondary to COVID 19 pneumonia; Patient doesn't qualify for a Remdesivir. -Acute renal failure possibly secondary to intravascular depletion and dehydration and received IV fluids patient is bit hyponatremic IV fluids were discontinued patient underwent [place] to drink water -Type 2 diabetes mellitus with hyperglycemia improved now. -Hypertension -Hyperlipidemia -transaminitis secondary to Covid 19 infection -Elevated D-Dimer secondary to Covid 19 infection -Elevated inflammatory markers of Covid 19 -Obstructive sleep apnea patient doesn't use any oxygen at home patient quit smoking many years ago DVT prophylaxis: Lovenox Plan Continue IV antibiotics Continue decadron, zinc, vitamins, lovenox Continue bronchodilators Titrate oxygen as needed Present insulin regimen Continue all other supportive care Repeat chest xray today Labs/inflammatory markers in the AM Prognosis remains guarded for this patient Objective - Vital Signs Vital signs: Vital Signs Temp 98.8 F 09/27/21 08:59 Pulse 107 H 09/27/21 08:59 Resp 17 09/27/21 08:59 BP 146/87 09/27/21 08:59 Pulse Ox 86 L 09/27/21 08:59 Intake & Output 09/26/21 09/27/21 09/27/21 18:59 06:59 18:59 Intake Total 1100 240 Output Total 800 Balance 300 240 Weight 108.862 kg Intake: IV 900 Sodium Chloride 0.9% 1, 900 000 ml @ 75 mls/hr IV . [id number] [facility] Rx#:[id number] Oral 200 240 Output: Urine 800 Other: Voiding Method Indwelling Catheter Indwelling Catheter Indwelling Catheter - Labs CBC & Chem 7: 09/27/21 06:45 09/27/21 06:46 Labs: Abnormal Lab Results - Last 24 Hours (Table) 09/26/21 09/26/21 09/27/21 Range/Units 16:49 20:35 06:38 RBC (4.40-5.60) X 10*6/uL Hgb (13.0-17.0) g/dL Hct (39.6-50.0) % MCV (80.0-97.0) fL MCHC (32.0-37.0) g/dL RDW (11.5-14.5) % D-Dimer 3.19 H (<0.60) mg/L FEU Sodium (135-145) mmol/L Chloride (96-109) mmol/L BUN (9.0-27.0) mg/dL BUN/Creatinine Ratio (12.00-20.00) Ratio Glucose (70-110) mg/dL POC Glucose (mg/dL) 165 H 189 H (75-99) mg/dL Calcium (8.7-10.3) mg/dL Ferritin (22.0-322.0) ng/mL AST (14-35) U/L ALT (10-49) U/L Lactate Dehydrogenase (120-246) U/L C-Reactive Protein (0.00-0.80) mg/dL Total Protein (6.2-8.2) g/dL Albumin (3.8-4.9) g/dL Albumin/Globulin Ratio (1.60-3.17) g/dL Procalcitonin (0.02-0.09) ng/mL 09/27/21 09/27/21 09/27/21 Range/Units 06:45 06:45 06:46 RBC 3.78 L (4.40-5.60) X 10*6/uL Hgb 11.8 L (13.0-17.0) g/dL Hct 37.6 L (39.6-50.0) % MCV 99.5 H (80.0-97.0) fL MCHC 31.4 L (32.0-37.0) g/dL RDW 14.7 H (11.5-14.5) % D-Dimer (<0.60) mg/L FEU Sodium 146 H (135-145) mmol/L Chloride 110 H (96-109) mmol/L BUN 29.0 H (9.0-27.0) mg/dL BUN/Creatinine Ratio 28.71 H (12.00-20.00) Ratio Glucose 163 H (70-110) mg/dL POC Glucose (mg/dL) (75-99) mg/dL Calcium 8.4 L (8.7-10.3) mg/dL Ferritin 1164.0 H (22.0-322.0) ng/mL AST 50 H (14-35) U/L ALT 52 H (10-49) U/L Lactate Dehydrogenase 437 H (120-246) U/L C-Reactive Protein 12.10 H (0.00-0.80) mg/dL Total Protein 5.4 L (6.2-8.2) g/dL Albumin 2.7 L (3.8-4.9) g/dL Albumin/Globulin Ratio 1.00 L (1.60-3.17) g/dL Procalcitonin 0.73 H (0.02-0.09) ng/mL 09/27/21 09/27/21 Range/Units 06:56 11:09 RBC (4.40-5.60) X 10*6/uL Hgb (13.0-17.0) g/dL Hct (39.6-50.0) % MCV (80.0-97.0) fL MCHC (32.0-37.0) g/dL RDW (11.5-14.5) % D-Dimer (<0.60) mg/L FEU Sodium (135-145) mmol/L Chloride (96-109) mmol/L BUN (9.0-27.0) mg/dL BUN/Creatinine Ratio (12.00-20.00) Ratio Glucose (70-110) mg/dL POC Glucose (mg/dL) 203 H 201 H (75-99) mg/dL Calcium (8.7-10.3) mg/dL Ferritin (22.0-322.0) ng/mL AST (14-35) U/L ALT (10-49) U/L Lactate Dehydrogenase (120-246) U/L C-Reactive Protein (0.00-0.80) mg/dL Total Protein (6.2-8.2) g/dL Albumin (3.8-4.9) g/dL Albumin/Globulin Ratio (1.60-3.17) g/dL Procalcitonin (0.02-0.09) ng/mL
[2021-09-27 16:22] LABS: Glucose,Whole Blood 230 mg/dL (75-99)
[2021-09-27] MEDS: LATANOPROST 0.005% OPHTH DROPS 2.5 ML BTL BOTH EYES SCH (19:49)
[2021-09-27 20:44] LABS: Glucose,Whole Blood 190 mg/dL (75-99)
[2021-09-28 07:03] LABS: Glucose,Whole Blood 144 mg/dL (75-99)
[2021-09-28] MEDS: amLODIPine 5 MG TAB PO SCH (07:48)
[2021-09-28] MEDS: ZINC SULFATE 220 MG CAP PO SCH (07:48)
[2021-09-28] MEDS: TAMSULOSIN 0.4 MG CAP.ER.24H PO SCH (07:48)
[2021-09-28] MEDS: ASCORBIC ACID 500 MG TAB PO SCH (07:48)
[2021-09-28] MEDS: carvediloL 12.5 MG TAB PO SCH ×2 (07:48→21:41)
[2021-09-28] MEDS: GABAPENTIN 300 MG CAP PO SCH ×3 (07:49→21:41)
[2021-09-28] MEDS: CHOLECALCIFEROL 125 MCG (5000 IU) TABLET PO SCH (07:49)
[2021-09-28] MEDS: DEXAMETHASONE SOD PHOSPHATE 10 MG/ML 1 ML VIAL IVP SCH (07:49)
[2021-09-28] MEDS: LIDOCAINE 5% PATCH TOPICAL SCH (07:50)
[2021-09-28] MEDS: ENOXAPARIN 40 MG/0.4 ML SYRINGE SQ SCH ×2 (07:50→21:41)
[2021-09-28] MEDS: INSULIN ASPART (NovoLOG) 100 UNIT/ML VIAL SQ SCH ×7 (07:50→21:41)
[2021-09-28] MEDS: DEXTROSE 5% IN WATER 1,000 ML IV SCH ×2 (07:51→17:11)
[2021-09-28] MEDS: AZITHROMYCIN 500 MG in SODIUM CHLORIDE 0.9% 250 ML IVPB SCH (08:47)
--- NOTE | 2021-09-28 09:34 | P.PN ---
Subjective 76-year-old male came in with complaints of shortness of breath cough has been going on for about the 2 weeks. Patient is hypoxic present has 6 L of oxygen. Found to have Covid 19 infection" is significant infiltrate on the chest x-ray with elevated liver enzymes elevated to calcitonin 4.89. Patient was also having diarrhea nausea vomiting. is bit dehydrated. Patient was a creatinine is 1.42 diabetes with us and is on metformin at home. 09/25/2021 Patient evaluated today sitting in the chair. He is answering any questions and asked appears very lethargic, oxygen saturation 88% on 8 liters high flow cannula last documented. Upon my assessment patient did appear lethargic and hypoxic did increase his oxygen to 10 L high flow and was able to obtain 93-94% saturation rating. Blood pressure 150/85, respirations 19, heart 87, afebrile. Patient is a history of aphasia which is normal for him. He was able to state that he is feeling okay and denies any shortness of breath. Labs today; sodium 145, potassium 4.2, BUN 31.2, creatinine 1.1, glucose in the 300s, AST 113, AST 63, alk phos 88. Patient continues on albuterol, IV azithromycin, Symbicort, IV Rocephin, dexamethasone, Lovenox, zinc, vitamins. 09/26/2021 Patient is pretty status is bit worse compared to yesterday patient required BiPAP last night and patient is presently on high flow nasal cannula oxygen along with the nonrebreather 09/27/2021 Patient's respiratory status remains the same. Patient is still requiring BiPAP. Patient although feels better subjectively. On [id number]/25/2021 Patient's respiratory status remains the same is requiring a BiPAP on and off and is presently on 15 L high flow nasal cannula oxygen. His speech as per the nursing staff is better. His d-dimer is elevated I'll start him on Lovenox 40 twice a day Constitutional: Denied any fatigue denied any fever. Cardio vascular: denied any chest pain, palpitations Gastrointestinal denied any nausea vomiting Pulmonary: Denied any shortness of breath cough Neurologic denied any new focal deficits All inpatient medications were reviewed and appropriate changes in these medications as dictated in the interval history and assessment and plan. PHYSICAL EXAMINATION: GENERAL: The patient is alert and oriented x1, mild respiratory distress. Well developed, well nourished. HEENT: Pupils are round and equally reacting to light. EOMI. No scleral icterus. No conjunctival pallor. Normocephalic, atraumatic. No pharyngeal erythema. No thyromegaly. CARDIOVASCULAR: S1 and S2 present. No murmurs, rubs, or gallops. PULMONARY: Coarse rhonchi bilateral ABDOMEN: Soft, nontender, nondistended, normoactive bowel sounds. No palpable organomegaly. MUSCULOSKELETAL: No joint swelling or deformity. EXTREMITIES: No cyanosis, clubbing, mild peripheral edema NEUROLOGICAL: Gross neurological examination did not reveal any focal deficits. SKIN: No rashes. Assessment and plan -Acute hypoxic respiratory failure secondary to COVID 19 pneumonia; Patient doesn't qualify for a Remdesivir. -Acute renal failure possibly secondary to intravascular depletion and dehydration and received IV fluids patient is bit hyponatremic IV fluids were discontinued patient underwent [place] to drink water -Type 2 diabetes mellitus with hyperglycemia improved now. -Hypertension -Hyperlipidemia -transaminitis secondary to Covid 19 infection -Elevated D-Dimer secondary to Covid 19 infection -Elevated inflammatory markers of Covid 19 -Obstructive sleep apnea patient doesn't use any oxygen at home patient quit smoking many years ago DVT prophylaxis: Lovenox Plan Continue IV antibiotics Continue decadron, zinc, vitamins, lovenox Continue bronchodilators Titrate oxygen as needed Present insulin regimen Continue all other supportive care Repeat chest xray today Labs/inflammatory markers in the AM Prognosis remains guarded for this patient Objective - Vital Signs Vital signs: Vital Signs Temp 97.5 F L 09/28/21 02:28 Pulse 97 09/28/21 02:28 Resp 20 09/28/21 08:00 BP 150/85 09/28/21 02:28 Pulse Ox 92 L 09/28/21 02:28 Intake & Output 09/27/21 09/28/21 09/28/21 18:59 06:59 18:59 Intake Total 240 200 Balance 240 200 Weight 108.862 kg Intake: Oral 240 200 Other: Voiding Method Indwelling Catheter Indwelling Catheter Indwelling Catheter # Bowel Movements 0 - Labs CBC & Chem 7: 09/27/21 06:45 09/27/21 06:46 Labs: Abnormal Lab Results - Last 24 Hours (Table) 09/27/21 09/27/21 09/27/21 Range/Units 06:45 06:46 11:09 D-Dimer (<0.60) mg/L FEU Sodium 146 H (135-145) mmol/L Chloride 110 H (96-109) mmol/L BUN 29.0 H (9.0-27.0) mg/dL BUN/Creatinine Ratio 28.71 H (12.00-20.00) Ratio Glucose 163 H (70-110) mg/dL POC Glucose (mg/dL) 201 H (75-99) mg/dL Calcium 8.4 L (8.7-10.3) mg/dL Ferritin 1164.0 H (22.0-322.0) ng/mL AST 50 H (14-35) U/L ALT 52 H (10-49) U/L Lactate Dehydrogenase 437 H (120-246) U/L C-Reactive Protein 12.10 H (0.00-0.80) mg/dL Total Protein 5.4 L (6.2-8.2) g/dL Albumin 2.7 L (3.8-4.9) g/dL Albumin/Globulin Ratio 1.00 L (1.60-3.17) g/dL Procalcitonin 0.73 H (0.02-0.09) ng/mL 09/27/21 09/27/21 09/28/21 Range/Units 16:19 20:42 07:02 D-Dimer (<0.60) mg/L FEU Sodium (135-145) mmol/L Chloride (96-109) mmol/L BUN (9.0-27.0) mg/dL BUN/Creatinine Ratio (12.00-20.00) Ratio Glucose (70-110) mg/dL POC Glucose (mg/dL) 230 H 190 H 144 H (75-99) mg/dL Calcium (8.7-10.3) mg/dL Ferritin (22.0-322.0) ng/mL AST (14-35) U/L ALT (10-49) U/L Lactate Dehydrogenase (120-246) U/L C-Reactive Protein (0.00-0.80) mg/dL Total Protein (6.2-8.2) g/dL Albumin (3.8-4.9) g/dL Albumin/Globulin Ratio (1.60-3.17) g/dL Procalcitonin (0.02-0.09) ng/mL 09/28/21 Range/Units 07:09 D-Dimer 6.07 H (<0.60) mg/L FEU Sodium (135-145) mmol/L Chloride (96-109) mmol/L BUN (9.0-27.0) mg/dL BUN/Creatinine Ratio (12.00-20.00) Ratio Glucose (70-110) mg/dL POC Glucose (mg/dL) (75-99) mg/dL Calcium (8.7-10.3) mg/dL Ferritin (22.0-322.0) ng/mL AST (14-35) U/L ALT (10-49) U/L Lactate Dehydrogenase (120-246) U/L C-Reactive Protein (0.00-0.80) mg/dL Total Protein (6.2-8.2) g/dL Albumin (3.8-4.9) g/dL Albumin/Globulin Ratio (1.60-3.17) g/dL Procalcitonin (0.02-0.09) ng/mL
[2021-09-28] MEDS: SYMBICORT 80-4.5 MCG INHALER INHALATION SCH ×2 (09:48→20:20)
[2021-09-28] MEDS: ALBUTEROL HFA INHALER INHALATION SCH ×4 (09:48→20:19)
[2021-09-28] MEDS: TIOTROPIUM 2.5 MCG INHALER INHALATION SCH (09:49)
[2021-09-28 11:42] LABS: African American GFR (CKD) 84.4 (60.0-200.0); Anion Gap 11.4 mmol/L (10.00-18.00); BUN/Creat Ratio 28.4 Ratio (12.00-20.00); Blood Urea Nitrogen 28.4 mg/dL (9.0-27.0); C Reactive Protein 8.6 mg/dL (0.00-0.80); Calcium 8.4 mg/dL (8.7-10.3); Carbon Dioxide 23.6 mmol/L (20.0-27.5); Non-African American GFR(CKD) 72.8 (60.0-200.0); Potassium 3.8 mmol/L (3.5-5.5)
[2021-09-28 11:57] LABS: Glucose,Whole Blood 172 mg/dL (75-99)
--- NOTE | 2021-09-28 15:28 | P.PN ---
Subjective Progress Note Date: 09/28/21 This is a 76-year-old male patient who follows with the [facility] system as his primary care provider. He has a history of chronic obstructive pulmonary disease, hypertension, hyperlipidemia, diabetes mellitus, obstructive sleep apnea maintained on CPAP at a pressure of 11 cm of water with C-Flex of 3. He has a 2 week history of increasing shortness of breath, cough and congestion. He presented here to the emergency room yesterday for the same. X-ray reveals bilateral patchy infiltrates left greater than right consistent with COVID-19 pneumonia. White count 8.2. Hemoglobin 12.0. D-dimer 2.07. Sodium 140. Potassium 4.0. Creatinine 1.4. AST 85. ALT 50. LDH 1625. C-reactive protein 38.4. Pro-calcitonin 4.89. [place] virus by PCR positive. He's been initiated on Decadron, vitamin supplements. If he did receive Lovenox 100 mg subcu once yesterday. Normal saline at 75 ML's per hour. He is seen today in consultation in the emergency department. He is currently sitting up awake and alert. Somewhat slow to respond. Somewhat of a poor historian. His daughter is present in the room in supplies most of the information. Is currently maintaining O2 saturations in the low 90s on 6 L high flow nasal cannula. He's been afebrile. Slightly tachycardic. Hypertensive. On 09/25/2021 patient seen in follow-up on medical surgical floor, he is a poor historian, he is currently sitting up in the recliner, he is currently on 8 L of oxygen and his oxygen demand has increased compared to yesterday when he was on 6 L per high flow nasal cannula. Pulse ox is currently 88-89%, he is afebrile, remains hypertensive with blood pressure in the 180s over 107, with a mean of 133 bpm. D-dimer came back elevated at 2.07, lower extremity Dopplers showed no evidence of DVTs in both. His been afebrile, does have a congestive cough, overall his mentation is confused and sleepy. He is currently on the Decadron 6 mg daily, he is on inhaled bronchodilators. Cough is congested, patient does have underlying history of COPD, we will add empiric antibiotics today. We'll obtain follow up pro-calcitonin level. Initial pro-calcitonin level on admission was elevated to 4.89. On 09/26/2021 patient seen in follow-up medical surgical floor. He is confused, but his responsive, he denies any acute distress. He was taken off the BiPAP support this morning, he is currently on 15 L high flow oxygen, and his pulse ox is 89-91%, he removes his oxygen at times, desaturates, becomes more confused. Low-grade fevers in the last 24 hours with a temp of 99.5F. Lung sounds reveal diffuse coarse inspiratory crackles throughout the lung baxter. No complaints of chest pain, occasional cough, no phlegm production. His chest x-ray today shows stable bibasilar and left peripheral COVID infiltrates, and 8 mm nodular density at the right lower lung with a recommendation of follow-up CT scanning of the chest to exclude underlying pulmonary nodule. Patient continues on Rocephin and azithromycin for empiric antibiotic coverage, he is on Decadron 6 mg daily, he is on prophylactic dose of Lovenox. Today's labs have been reviewed, his white blood cell count 8.12, hemoglobin is 12.4, serum sodium is 147, potassium is 4.0, chloride is 111, B1 is 32, creatinine is 1.2, ferritin level is improving and is down to 1227, LDH is down to 477, improved and CRP is also improving and is down to 7.8, follow up pro-calcitonin was improved and was down to 1.53. On 09/27/2021 patient seen in follow-up on medical surgical floor. He is currently sleeping, he is on BiPAP support, which he looks very comfortable on, breathing comfortably, BiPAP settings of 12 and 6 and FiO2 of 70%, his pulse ox is Usually better on BiPAP at 95%. On 15 L per high flow nasal cannula his pulse ox is 186%, afebrile, hemodynamically stable, still confused, not agitated. His last chest x-ray from 09/25/2001 showed stable bibasilar and left peripheral COVID infiltrates. Patient was also suspected to have bacteria superinfection, he was placed on azithromycin and Rocephin, his pro-calcitonin was improving, and is down to 0.73 on today's labs from the original value of 4.89 on 09/23/2021. White count is 8.4, hemoglobin is 0.8, his d-dimer is 3.19, sodium is 146, patient remains on D5W at 50 ML per hour, potassium 3.6, B1 is 29, creatinine is 1.His LDH is slightly improved and is down to 1164, CRP is 12. 1, improved since admission. Appears to be in no acute distress. Appetite is poor, he is only consuming about 25% of his meals. The patient is seen today 09/28/2021 in follow-up on the regular medical floor. He is currently resting comfortably in bed. Arousable, drifts off easily, in no acute distress. He is currently on 15 L high flow nasal cannula. He has been utilizing the BiPAP as well with settings of 12/6 and 70% FiO2. He has normal saline running at 50 MLS per hour. D-dimer 6.07. Sodium 144. Potassium 3.8. Creatinine 1.0. LDH 413. C-reactive protein 8.6. Blood glucose 161. He remains on Lovenox 40 mg twice a day, Decadron, bronchodilators, vitamin supplements. He is on antibiotics in the form of ceftriaxone and azithromycin. Objective - Vital Signs Vital signs: Vital Signs Temp 98.2 F 09/28/21 14:52 Pulse 85 09/28/21 14:52 Resp 17 09/28/21 14:52 BP 137/85 09/28/21 14:52 Pulse Ox 90 L 09/28/21 14:52 Intake & Output 09/27/21 09/28/21 09/28/21 18:59 06:59 18:59 Intake Total 240 200 Output Total 1200 Balance 240 200 -1200 Weight 108.862 kg Intake: Oral 240 200 Output: Urine 1200 Other: Voiding Method Indwelling Catheter Indwelling Catheter Indwelling Catheter # Bowel Movements 0 1 - Exam GENERAL EXAM: Lethargic, 76-year-old male patient, on 15 L high flow nasal cannula, BiPAP support with pressures of 12 and 6 and FiO2 of 70%, breathing comfortably, HEAD: Normocephalic/atraumatic. EYES: Normal reaction of pupils, equal size. Conjunctiva pink, sclera white. NOSE: Clear with pink turbinates. THROAT: No erythema or exudates. NECK: No masses, no JVD, no thyroid enlargement, no adenopathy. CHEST: No chest wall deformity. Symmetrical expansion. LUNGS: Equal air entry with diffuse crackles, diffuse rhonchi, patient has a congested cough CVS: Regular rate and rhythm, normal S1 and S2, no gallops, no murmurs, no rubs ABDOMEN: Soft, nontender. No hepatosplenomegaly, normal bowel sounds, no guarding or rigidity. EXTREMITIES: No clubbing, no edema, no cyanosis, 2+ pulses and upper and lower extremities. MUSCULOSKELETAL: Muscle strength and tone normal. SPINE: No scoliosis or deformity SKIN: No rashes CENTRAL NERVOUS SYSTEM: Confused, lethargic, currently on BiPAP support,No focal deficits, tone is normal in all 4 extremities. - Labs CBC & Chem 7: 09/27/21 06:45 09/28/21 07:16 Labs: Abnormal Lab Results - Last 24 Hours (Table) 09/27/21 09/27/21 09/28/21 Range/Units 16:19 20:42 07:02 D-Dimer (<0.60) mg/L FEU BUN (9.0-27.0) mg/dL BUN/Creatinine Ratio (12.00-20.00) Ratio Glucose (70-110) mg/dL POC Glucose (mg/dL) 230 H 190 H 144 H (75-99) mg/dL Calcium (8.7-10.3) mg/dL Lactate Dehydrogenase (120-246) U/L C-Reactive Protein (0.00-0.80) mg/dL 09/28/21 09/28/21 09/28/21 Range/Units 07:09 07:16 11:56 D-Dimer 6.07 H (<0.60) mg/L FEU BUN 28.4 H (9.0-27.0) mg/dL BUN/Creatinine Ratio 28.40 H (12.00-20.00) Ratio Glucose 161 H (70-110) mg/dL POC Glucose (mg/dL) 172 H (75-99) mg/dL Calcium 8.4 L (8.7-10.3) mg/dL Lactate Dehydrogenase 413 H (120-246) U/L C-Reactive Protein 8.60 H (0.00-0.80) mg/dL Assessment and Plan Assessment: 1 Acute COVID-19 pneumonia. Cannot rule out underlying infection with elevated pro calcitonin of 4.89. Symptoms started 2 weeks ago. Outside the window for Remdesivir. Not qualifying for Baricitinib. Not vaccinated. 2 Elevated inflammatory markers secondary to above 3 Acute renal failure secondary to dehydration 4 Diabetes mellitus 5 Hypertension 6 Hyperlipidemia 7 Chronic obstructive pulmonary disease 8 Obstructive sleep apnea, on CPAP Plan: The patient was seen and evaluated D-dimer elevated, continued on Lovenox twice a day Continue Decadron, vitamin supplements Continue bronchodilators Remains on antibiotics Titrate the FiO2 as tolerated Prognosis is guarded We will continue to follow I, the cosigning physician, performed a history & physical examination of the patient. Lungs sounds are coarse crackles in the bilateral bases. Maintaining good O2 saturations in the 90s on 15 L high flow nasal cannula I discussed the assessment and plan of care with my nurse practitioner, Iraida Jimenez. I attest to the above note as dictated by her.
[2021-09-28 16:46] LABS: Glucose,Whole Blood 280 mg/dL (75-99)
[2021-09-28 20:36] LABS: Glucose,Whole Blood 145 mg/dL (75-99)
[2021-09-28] MEDS: LATANOPROST 0.005% OPHTH DROPS 2.5 ML BTL BOTH EYES SCH (21:42)
[2021-09-28] MEDS ORDERED: carvediloL 12.5 MG TAB PO STA (23:56)
[2021-09-29 07:06] LABS: Glucose,Whole Blood 129 mg/dL (75-99)
[2021-09-29] MEDS: amLODIPine 5 MG TAB PO SCH (07:34)
[2021-09-29] MEDS: GABAPENTIN 300 MG CAP PO SCH ×3 (07:34→20:10)
[2021-09-29] MEDS: ASCORBIC ACID 500 MG TAB PO SCH (07:34)
[2021-09-29] MEDS: TAMSULOSIN 0.4 MG CAP.ER.24H PO SCH (07:34)
[2021-09-29] MEDS: CHOLECALCIFEROL 125 MCG (5000 IU) TABLET PO SCH (07:34)
[2021-09-29] MEDS: ENOXAPARIN 40 MG/0.4 ML SYRINGE SQ SCH ×2 (07:35→20:10)
[2021-09-29] MEDS: carvediloL 12.5 MG TAB PO SCH ×2 (07:35→16:51)
[2021-09-29] MEDS: ZINC SULFATE 220 MG CAP PO SCH (07:35)
[2021-09-29] MEDS: LIDOCAINE 5% PATCH TOPICAL SCH (07:35)
[2021-09-29] MEDS: DEXAMETHASONE SOD PHOSPHATE 10 MG/ML 1 ML VIAL IVP SCH (07:35)
[2021-09-29] MEDS: INSULIN ASPART (NovoLOG) 100 UNIT/ML VIAL SQ SCH ×7 (07:36→21:39)
[2021-09-29] MEDS: DEXTROSE 5% IN WATER 1,000 ML IV SCH ×2 (07:36→11:29)
[2021-09-29] MEDS: SYMBICORT 80-4.5 MCG INHALER INHALATION SCH ×2 (08:03→21:04)
[2021-09-29] MEDS: ALBUTEROL HFA INHALER INHALATION SCH ×4 (08:03→21:03)
[2021-09-29] MEDS: TIOTROPIUM 2.5 MCG INHALER INHALATION SCH (08:52)
[2021-09-29] MEDS: AZITHROMYCIN 500 MG in SODIUM CHLORIDE 0.9% 250 ML IVPB SCH (09:09)
--- NOTE | 2021-09-29 10:51 | P.PN ---
Subjective 76-year-old male came in with complaints of shortness of breath cough has been going on for about the 2 weeks. Patient is hypoxic present has 6 L of oxygen. Found to have Covid 19 infection" is significant infiltrate on the chest x-ray with elevated liver enzymes elevated to calcitonin 4.89. Patient was also having diarrhea nausea vomiting. is bit dehydrated. Patient was a creatinine is 1.42 diabetes with us and is on metformin at home. 09/25/2021 Patient evaluated today sitting in the chair. He is answering any questions and asked appears very lethargic, oxygen saturation 88% on 8 liters high flow cannula last documented. Upon my assessment patient did appear lethargic and hypoxic did increase his oxygen to 10 L high flow and was able to obtain 93-94% saturation rating. Blood pressure 150/85, respirations 19, heart 87, afebrile. Patient is a history of aphasia which is normal for him. He was able to state that he is feeling okay and denies any shortness of breath. Labs today; sodium 145, potassium 4.2, BUN 31.2, creatinine 1.1, glucose in the 300s, AST 113, AST 63, alk phos 88. Patient continues on albuterol, IV azithromycin, Symbicort, IV Rocephin, dexamethasone, Lovenox, zinc, vitamins. 09/26/2021 Patient is pretty status is bit worse compared to yesterday patient required BiPAP last night and patient is presently on high flow nasal cannula oxygen along with the nonrebreather 09/27/2021 Patient's respiratory status remains the same. Patient is still requiring BiPAP. Patient although feels better subjectively. On pthtabsdlui32/25/2021 Patient's respiratory status remains the same is requiring a BiPAP on and off and is presently on 15 L high flow nasal cannula oxygen. His speech as per the nursing staff is better. His d-dimer is elevated I'll start him on Lovenox 40 twice a day 09/29/2021 Patient's hyponatremia improved patient also is confused compared to yesterday this is probably because of the steroids, infection, prolonged hospitalization. Pulmonary ordered CT of the head which is being obtain at this time. Patient isn't requirement remains the same. Review of systems: Patient is confused on reliable All inpatient medications were reviewed and appropriate changes in these medications as dictated in the interval history and assessment and plan. PHYSICAL EXAMINATION: GENERAL: The patient is alert and oriented x1, mild respiratory distress. Well developed, well nourished. HEENT: Pupils are round and equally reacting to light. EOMI. No scleral icterus. No conjunctival pallor. Normocephalic, atraumatic. No pharyngeal erythema. No thyromegaly. CARDIOVASCULAR: S1 and S2 present. No murmurs, rubs, or gallops. PULMONARY: Coarse rhonchi bilateral ABDOMEN: Soft, nontender, nondistended, normoactive bowel sounds. No palpable organomegaly. MUSCULOSKELETAL: No joint swelling or deformity. EXTREMITIES: No cyanosis, clubbing, mild peripheral edema NEUROLOGICAL: Gross neurological examination did not reveal any focal deficits. SKIN: No rashes. Assessment and plan -Acute hypoxic respiratory failure secondary to COVID 19 pneumonia; Patient doesn't qualify for a Remdesivir. -Acute renal failure possibly secondary to intravascular depletion and dehydration and received IV fluids patient is bit hyponatremic IV fluids were discontinued patient underwent [place] to drink water Mental status secondary to toxic encephalopathy from Decadron, infection with a competent of her prolonged hospitalization leading to -Type 2 diabetes mellitus with hyperglycemia improved now. -Hypertension -Hyperlipidemia -transaminitis secondary to Covid 19 infection -Elevated D-Dimer secondary to Covid 19 infection -Elevated inflammatory markers of Covid 19 -Obstructive sleep apnea patient doesn't use any oxygen at home patient quit smoking many years ago DVT prophylaxis: Lovenox Plan Continue IV antibiotics Continue decadron, zinc, vitamins, lovenox Continue bronchodilators Titrate oxygen as needed Present insulin regimen Continue all other supportive care Prognosis remains guarded for this patient Objective - Vital Signs Vital signs: Vital Signs Temp 97.4 F L 09/29/21 10:00 Pulse 76 09/29/21 10:00 Resp 20 09/29/21 10:00 BP 145/80 09/29/21 10:00 Pulse Ox 92 L 09/29/21 10:00 Intake & Output 09/28/21 09/29/21 09/29/21 18:59 06:59 18:59 Output Total 1200 600 Balance -1200 -600 Output: Urine 1200 600 Other: Voiding Method Indwelling Catheter Indwelling Catheter Indwelling Catheter # Bowel Movements 1 - Labs CBC & Chem 7: 09/27/21 06:45 09/28/21 07:16 Labs: Abnormal Lab Results - Last 24 Hours (Table) 09/28/21 09/28/21 09/28/21 Range/Units 07:16 11:56 16:45 BUN 28.4 H (9.0-27.0) mg/dL BUN/Creatinine Ratio 28.40 H (12.00-20.00) Ratio Glucose 161 H (70-110) mg/dL POC Glucose (mg/dL) 172 H 280 H (75-99) mg/dL Calcium 8.4 L (8.7-10.3) mg/dL Lactate Dehydrogenase 413 H (120-246) U/L C-Reactive Protein 8.60 H (0.00-0.80) mg/dL 09/28/21 09/29/21 Range/Units 20:35 07:05 BUN (9.0-27.0) mg/dL BUN/Creatinine Ratio (12.00-20.00) Ratio Glucose (70-110) mg/dL POC Glucose (mg/dL) 145 H 129 H (75-99) mg/dL Calcium (8.7-10.3) mg/dL Lactate Dehydrogenase (120-246) U/L C-Reactive Protein (0.00-0.80) mg/dL
[2021-09-29 11:26] LABS: Glucose,Whole Blood 175 mg/dL (75-99)
--- NOTE | 2021-09-29 11:38 | P.PN ---
Subjective Progress Note Date: 09/29/21 Principal diagnosis: Dyspnea This is a 76-year-old male patient who follows with the [facility] system as his primary care provider. He has a history of chronic obstructive pulmonary disease, hypertension, hyperlipidemia, diabetes mellitus, obstructive sleep apnea maintained on CPAP at a pressure of 11 cm of water with C-Flex of 3. He has a 2 week history of increasing shortness of breath, cough and congestion. He presented here to the emergency room yesterday for the same. X-ray reveals bilateral patchy infiltrates left greater than right consistent with COVID-19 pneumonia. White count 8.2. Hemoglobin 12.0. D-dimer 2.07. Sodium 140. Potassium 4.0. Creatinine 1.4. AST 85. ALT 50. LDH 1625. C-reactive protein 38.4. Pro-calcitonin 4.89. [place] virus by PCR positive. He's been initiated on Decadron, vitamin supplements. If he did receive Lovenox 100 mg subcu once yesterday. Normal saline at 75 ML's per hour. He is seen today in consultation in the emergency department. He is currently sitting up awake and alert. Somewhat slow to respond. Somewhat of a poor historian. His daughter is present in the room in supplies most of the information. Is currently maintaining O2 saturations in the low 90s on 6 L high flow nasal cannula. He's been afebrile. Slightly tachycardic. Hypertensive. On 09/25/2021 patient seen in follow-up on medical surgical floor, he is a poor historian, he is currently sitting up in the recliner, he is currently on 8 L of oxygen and his oxygen demand has increased compared to yesterday when he was on 6 L per high flow nasal cannula. Pulse ox is currently 88-89%, he is afebrile, remains hypertensive with blood pressure in the 180s over 107, with a mean of 133 bpm. D-dimer came back elevated at 2.07, lower extremity Dopplers showed no evidence of DVTs in both. His been afebrile, does have a congestive cough, overall his mentation is confused and sleepy. He is currently on the Decadron 6 mg daily, he is on inhaled bronchodilators. Cough is congested, patient does have underlying history of COPD, we will add empiric antibiotics today. We'll obtain follow up pro-calcitonin level. Initial pro-calcitonin level on admission was elevated to 4.89. On 09/26/2021 patient seen in follow-up medical surgical floor. He is confused, but his responsive, he denies any acute distress. He was taken off the BiPAP support this morning, he is currently on 15 L high flow oxygen, and his pulse ox is 89-91%, he removes his oxygen at times, desaturates, becomes more confused. Low-grade fevers in the last 24 hours with a temp of 99.5F. Lung sounds reveal diffuse coarse inspiratory crackles throughout the lung baxter. No complaints of chest pain, occasional cough, no phlegm production. His chest x-ray today shows stable bibasilar and left peripheral COVID infiltrates, and 8 mm nodular density at the right lower lung with a recommendation of follow-up CT scanning of the chest to exclude underlying pulmonary nodule. Patient continues on Rocephin and azithromycin for empiric antibiotic coverage, he is on Decadron 6 mg daily, he is on prophylactic dose of Lovenox. Today's labs have been reviewed, his white blood cell count 8.12, hemoglobin is 12.4, serum sodium is 147, potassium is 4.0, chloride is 111, B1 is 32, creatinine is 1.2, ferritin level is improving and is down to 1227, LDH is down to 477, improved and CRP is also improving and is down to 7.8, follow up pro-calcitonin was improved and was down to 1.53. On 09/27/2021 patient seen in follow-up on medical surgical floor. He is curr ently sleeping, he is on BiPAP support, which he looks very comfortable on, breathing comfortably, BiPAP settings of 12 and 6 and FiO2 of 70%, his pulse ox is Usually better on BiPAP at 95%. On 15 L per high flow nasal cannula his pulse ox is 186%, afebrile, hemodynamically stable, still confused, not agitated. His last chest x-ray from 09/25/2001 showed stable bibasilar and left peripheral COVID infiltrates. Patient was also suspected to have bacteria superinfection, he was placed on azithromycin and Rocephin, his pro-calcitonin was improving, and is down to 0.73 on today's labs from the original value of 4.89 on 09/23/2021. White count is 8.4, hemoglobin is 0.8, his d-dimer is 3.19, sodium is 146, patient remains on D5W at 50 ML per hour, potassium 3.6, B1 is 29, creatinine is 1.His LDH is slightly improved and is down to 1164, CRP is 12.1, improved since admission. Appears to be in no acute distress. Appetite is poor, he is only consuming about 25% of his meals. On 09/29/2021 patient seen in follow-up on medical surgical floor. Patient remains confused, but more awake on today's exam, he has been alternating between BiPAP with pressures of 12.6 and FiO2 of 70% and 15 L high flow oxygen. Pulse ox is 91-92%, his been afebrile. He is only oriented to self, very disoriented to place and time, confused. Does not appear to be in respiratory distress. He does have a cough, which is congested and his mouth has dried up phlegm, oral mucous membranes are extremely dry. Patient has had very poor oral intake related to being BiPAP dependent. Currently tolerating high flow nasal cannula much better, although still remains very confused. But at this point probably able to tolerate some oral feedings. Lung sounds reveal diffuse rhonchi. Needs pulmonary toileting and aspiration precautions. Patient's family was in yesterday to see him for [place], and they were concerned about his altered mentation. We will obtain brain CT without today. Remains on antibiotics with azithromycin and Rocephin. He remains on D5W at a rate of 50 ML per hour, Decadron 6 mg daily and Lovenox 40 mg twice daily. His last d- dimer from yesterday was up trending was up to 6.07 at which point his Lovenox dose has been increased to twice daily. His serum sodium has normalized and was down to 144 on yesterday's labs. BUN is 28 creatinine is 1. Inflammatory markers were improving since admission and LDH was down to 413, and CRP was 8.6. Bronchial stump was down to 0.73 Objective - Vital Signs Vital signs: Vital Signs Temp 97.4 F L 09/29/21 10:00 Pulse 76 09/29/21 10:00 Resp 20 09/29/21 10:00 BP 145/80 09/29/21 10:00 Pulse Ox 92 L 09/29/21 10:00 Intake & Output 09/28/21 09/29/21 09/29/21 18:59 06:59 18:59 Output Total 1200 600 Balance -1200 -600 Output: Urine 1200 600 Other: Voiding Method Indwelling Catheter Indwelling Catheter Indwelling Catheter # Bowel Movements 1 - Exam GENERAL EXAM: More awake, but still very confused 76-year-old white male, currently on 15 L of oxygen with pulse ox of 92%, alternating with BiPAP support with 12.6 and FiO2 of 70% HEAD: Normocephalic/atraumatic. EYES: Normal reaction of pupils, equal size. Conjunctiva pink, sclera white. NOSE: Clear with pink turbinates. MOUTH: dry oral mucous membranes, with dried oral secretions THROAT: No erythema or exudates. NECK: No masses, no JVD, no thyroid enlargement, no adenopathy. CHEST: No chest wall deformity. Symmetrical expansion. LUNGS: Equal air entry with diffuse crackles, diffuse rhonchi, patient has a congested cough CVS: Regular rate and rhythm, normal S1 and S2, no gallops, no murmurs, no rubs ABDOMEN: Soft, nontender. No hepatosplenomegaly, normal bowel sounds, no guarding or rigidity. EXTREMITIES: No clubbing, no edema, no cyanosis, 2+ pulses and upper and lower extremities. MUSCULOSKELETAL: Muscle strength and tone normal. SPINE: No scoliosis or deformity SKIN: No rashes CENTRAL NERVOUS SYSTEM: Confused, but appears to be more alert, currently on 15 l/min. - Labs CBC & Chem 7: 09/27/21 06:45 09/28/21 07:16 Labs: Abnormal Lab Results - Last 24 Hours (Table) 09/28/21 09/28/21 09/28/21 Range/Units 07:16 11:56 16:45 BUN 28.4 H (9.0-27.0) mg/dL BUN/Creatinine Ratio 28.40 H (12.00-20.00) Ratio Glucose 161 H (70-110) mg/dL POC Glucose (mg/dL) 172 H 280 H (75-99) mg/dL Calcium 8.4 L (8.7-10.3) mg/dL Lactate Dehydrogenase 413 H (120-246) U/L C-Reactive Protein 8.60 H (0.00-0.80) mg/dL 09/28/21 09/29/21 09/29/21 Range/Units 20:35 07:05 11:24 BUN (9.0-27.0) mg/dL BUN/Creatinine Ratio (12.00-20.00) Ratio Glucose (70-110) mg/dL POC Glucose (mg/dL) 145 H 129 H 175 H (75-99) mg/dL Calcium (8.7-10.3) mg/dL Lactate Dehydrogenase (120-246) U/L C-Reactive Protein (0.00-0.80) mg/dL Assessment and Plan Plan: Assessment: #1. Acute hypoxic respiratory failure related to acute COVID-19 pneumonia, possibility of underlying pneumonia is also considered based on elevated pro- calcitonin level of 4.89. Patient presented to the hospital on 09/23/2021 with 2 weeks of symptoms, he was outside the window for Remdesivir. He is not vaccinated against COVID-19. Today on 09/29/2021 patient is on high flow oxygen at 15 L, and alternate it with BiPAP support at 12 and 6 and FiO2 of 70% #2. Elevated pro-calcitonin level, suggesting possibility of underlying bacterial infection, will cover with the combination of Rocephin and azithromycin, improving is down to 0.73 #3. Acute kidney injury related to dehydration and ATN, improved with IV hydration #4. Diabetes mellitus type 2 #5. Underlying history of sleep apnea on CPAP #6. Hypertension #7. Hyperlipidemia #8. Elevated d-dimer, with no evidence of DVT on lower extremity Dopplers #9. Hypernatremia, related to poor oral intake, improved with IV hydration with D5W #10. Pulmonary nodule, measuring 8 mm projecting at the right lower lobe, will need to be followed up on the CT of the chest with contrast #11. Altered mental status, possibly related to acute hypoxic,and toxic metabolic encephalopathy. We will obtain CT of the brain without today Plan: Patient needs aggressive pulmonary toileting Maintain aspiration precautions Supervision and assistance with meals Tolerating high flow nasal cannula Use BiPAP support as needed Continue with empiric antibiotics We'll obtain CT of the brain without contrast Continue same dose Decadron on Lovenox Inflammatory markers are improving We will obtain follow pro-calcitonin the chest x-ray tomorrow I performed a history & physical examination of the patient and discussed their management with my nurse practitioner, Terri Key. I reviewed the nurse practitioner's note and agree with the documented findings and plan of care. Lung sounds are positive for dim breath sounds throughout the lung baxter. The findings and the impression was discussed with the patient. I attest to the documentation by the nurse practitioner. Time with Patient: Less than 30
--- NOTE | 2021-09-29 11:40 | CT ---
EXAMINATION TYPE: CT brain wo con DATE OF EXAM: 09/29/2021 COMPARISON: None HISTORY: AMS TECHNIQUE: CT scan of the head performed without contrast CT DLP: 1173.4 mGycm Automated exposure control for dose reduction was used. FINDINGS: Focal area of low attenuation in the right frontal lobe involving the white and rush matter with abse nt rush-white matter differentiation. CSF spaces and ventricles in keeping with brain volume loss. Patchy low-attenuation the deep white matter and periventricular region consistent with rush-white ma tter changes. Small areas of low attenuation the bilateral basal ganglia suggesting lacunar infarcts. No intracranial hemorrhage, midline shift or mass effect. There are sclerotic calcifications are seen in the vertebrobasilar and internal carotid arteries. No acute orbital, osseous or soft tissue abnormalities seen. There are air-fluid levels in the frontal sinus. There is opacification of the ethmoid and partial op acification of the sphenoid air cells. No mastoid air cell effusion seen. IMPRESSION: 1. FOCAL AREA OF LOW-ATTENUATION RIGHT FRONTAL LOBE WITH ABSENT RUSH-WHITE MATTER DIFFERENTIATION IN A NONVASCULAR TERRITORY DISTRIBUTION CONCERNING FOR RUSH-WHITE MATTER JUNCTION MASS/EDEMA, REMOTE VAS CULAR INSULT IS FELT TO BE LESS LIKELY THOUGH CANNOT BE ENTIRELY EXCLUDED. 2. VOLUME LOSS, CHRONIC MICROVASCULAR ISCHEMIC CHANGES AND LACUNAR INFARCTS. LIKELY CHRONIC FINDINGS. RECOMMENDATION: STAT BRAIN MRI RECOMMENDED.
--- NOTE | 2021-09-29 15:53 | US ---
EXAMINATION TYPE: US venous doppler duplex LE DATE OF EXAM: 09/29/2021 1:49 PM COMPARISON: NONE CLINICAL HISTORY: elevated d-dimer. Covid, no leg symptoms SIDE PERFORMED: Bilateral TECHNIQUE: The lower extremity deep venous system is examined utilizing real time linear array sonog porfirio with graded compression, doppler sonography and color-flow sonography. VESSELS IMAGED: Common Femoral Vein Deep Femoral Vein Greater Saphenous Vein * Femoral Vein Popliteal Vein Small Saphenous Vein * Proximal Calf Veins (* superficial vessels) Right Leg: Negative for DVT Left Leg: Negative for DVT IMPRESSION: Grayscale, color doppler, spectral doppler imaging performed of the deep veins of the lo wer extremities. There is normal flow, compressibility, vascular waveforms.
[2021-09-29 16:38] LABS: Glucose,Whole Blood 205 mg/dL (75-99)
[2021-09-29] MEDS: LATANOPROST 0.005% OPHTH DROPS 2.5 ML BTL BOTH EYES SCH (20:10)
[2021-09-29 20:42] LABS: Glucose,Whole Blood 232 mg/dL (75-99)
--- NOTE | 2021-09-29 22:02 | P.PN ---
Progress Note - Text Progress Note Date: 09/29/21 The nurse called me regarding the CT Brain read. Per nurse, patient has been having confusion for about 5-7 days. Patient would respond yes/no to some questions. No focal weakness or facial weakness. I personally reviewed it and I personally feel it is subacute changes over the right frontal and I feel it seems more suspicious for stroke. I do not appreciated any vasogenic edema. Notified the nurse to obtain MRI Brain w/ and w/o to rule out stroke vs mass. Will obtain carotid duplex. Not CTA since patient is allergic for iodine and to obtain 2D echo. Dr. Edwards will evaluate the patient tomorrow for full consultation. Marcelino Reynoso MD Neuro-Hospitalist.
[2021-09-29 23:13] LABS: Chol/HDL Ratio 4.12 Ratio; LDL Cholesterol,Calculated 55.9 mg/dL (0.0-131.0)
[2021-09-30 07:26] LABS: Glucose,Whole Blood 363 mg/dL (75-99)
--- NOTE | 2021-09-30 07:40 | XR ---
EXAMINATION TYPE: XR chest 1V portable DATE OF EXAM: 09/30/2021 COMPARISON: 09/25/2021 INDICATION: Atypical pneumonia TECHNIQUE: Single frontal view of the chest is obtained. FINDINGS: The heart size is normal. The pulmonary vasculature is normal. There is consolidation in the left lower lung field. This is worsening over the interval. There is a stable nodule within the right midlung. Mild infiltrate is above the minor fissure on the right. IMPRESSION: 1. Worsening left lower lobe consolidation with minimal infiltrate through the right mid lung.
[2021-09-30] MEDS: ALBUTEROL HFA INHALER INHALATION SCH ×4 (09:18→21:29)
[2021-09-30] MEDS: TIOTROPIUM 2.5 MCG INHALER INHALATION SCH (09:20)
[2021-09-30] MEDS: SYMBICORT 80-4.5 MCG INHALER INHALATION SCH ×2 (09:20→21:29)
[2021-09-30] MEDS: INSULIN ASPART (NovoLOG) 100 UNIT/ML VIAL SQ SCH ×7 (09:29→22:18)
[2021-09-30] MEDS: DEXTROSE 5% IN WATER 1,000 ML IV SCH ×3 (09:30→22:37)
[2021-09-30] MEDS: AZITHROMYCIN 500 MG in SODIUM CHLORIDE 0.9% 250 ML IVPB SCH (09:31)
[2021-09-30] MEDS: ASCORBIC ACID 500 MG TAB PO SCH (09:31)
[2021-09-30] MEDS: amLODIPine 5 MG TAB PO SCH (09:31)
[2021-09-30] MEDS: TAMSULOSIN 0.4 MG CAP.ER.24H PO SCH (09:32)
[2021-09-30] MEDS: LIDOCAINE 5% PATCH TOPICAL SCH (09:32)
[2021-09-30] MEDS: carvediloL 12.5 MG TAB PO SCH ×2 (09:32→18:19)
[2021-09-30] MEDS: GABAPENTIN 300 MG CAP PO SCH ×3 (09:32→22:17)
[2021-09-30] MEDS: CHOLECALCIFEROL 125 MCG (5000 IU) TABLET PO SCH (09:32)
[2021-09-30] MEDS: ZINC SULFATE 220 MG CAP PO SCH (09:32)
[2021-09-30] MEDS: DEXAMETHASONE SOD PHOSPHATE 10 MG/ML 1 ML VIAL IVP SCH (09:32)
[2021-09-30] MEDS: ENOXAPARIN 40 MG/0.4 ML SYRINGE SQ SCH ×2 (09:46→22:18)
--- NOTE | 2021-09-30 10:09 | US ---
EXAMINATION TYPE: US carotid duplex BILAT DATE OF EXAM: 09/30/2021 COMPARISON: NONE CLINICAL HISTORY: possible cva. EXAM MEASUREMENTS: RIGHT: Peak Systolic Velocity (PSV) cm/sec ----- Right CCA: 71.0 ----- Right ICA: 60.9 ----- Right ECA: 99.2 ICA/CCA ratio: 0.86 RIGHT: End Diastole cm/sec ----- Right CCA: 20.8 ----- Right ICA: 17.3 ----- Right ECA: 10.7 LEFT: Peak Systolic Velocity (PSV) cm/sec ----- Left CCA: 114 ----- Left ICA: 89.7 ----- Left ECA: 73.1 ICA/CCA ratio: 0.79 LEFT: End Diastole cm/sec ----- Left CCA: 20.4 ----- Left ICA: 8.91 ----- Left ECA: 10.7 VERTEBRALS (direction of flow): Right Vertebral: Not seen Left Vertebral: Antegrade Rhythm: Normal Limited exam, High velocities seen in both left ECA and ICA, IMPRESSION: No evidence for hemodynamically significant stenosis at this time. Criteria for Assigning % of Stenosis / Diameter reduction (Estimation based on the indirect measurements of the internal carotid artery velocities (ICA PSV). 1. Normal (no stenosis)=ICA PSV < 125 cm/s: ratio < 2.0: ICA EDV<40 cm/s. 2. Less than 50% stenosis=ICA PSV < 125 cm/s: ratio < 2.0: ICA EDV<40 cm/s. 3. 50 to 69% stenosis=ICA PSV of 125 to 230 cm/s: ration 2.0 ? 4.0: ICA EDV 40-100 cm/s. 4. Greater than 70% stenosis to near occlusion= ICA PSV > 230 cm/s: ratio > 4.0: ICA EDV > 100 cm/s. 5. Near occlusion= ICA PSV velocities may be low or undetectable: variable ratio and ICA EDV. 6. Total occlusion=unable to detect flow.
[2021-09-30 10:48] LABS: African American GFR (CKD) 89.5 (60.0-200.0); Albumin 2.7 g/dL (3.8-4.9); Albumin/Globulin Ratio 0.97 (1.60-3.17); Anion Gap 11.8 mmol/L (10.00-18.00); BUN/Creat Ratio 31.3 Ratio (12.00-20.00); Blood Urea Nitrogen 29.8 mg/dL (9.0-27.0); C Reactive Protein 4.6 mg/dL (0.00-0.80); Calcium 8.3 mg/dL (8.7-10.3); Carbon Dioxide 26.5 mmol/L (20.0-27.5); Globulin 2.8 g/dL (1.6-3.3); Non-African American GFR(CKD) 77.2 (60.0-200.0); Potassium 4.2 mmol/L (3.5-5.5); Total Bilirubin 0.4 mg/dL (0.30-1.20); Total Protein 5.4 g/dL (6.2-8.2)
[2021-09-30 11:50] LABS: Glucose,Whole Blood 179 mg/dL (75-99)
--- NOTE | 2021-09-30 12:19 | P.PN ---
Subjective Progress Note Date: 09/30/21 76-year-old male came in with complaints of shortness of breath cough has been going on for about the 2 weeks. Patient is hypoxic present has 6 L of oxygen. Found to have Covid 19 infection" is significant infiltrate on the chest x-ray with elevated liver enzymes elevated to calcitonin 4.89. Patient was also having diarrhea nausea vomiting. is bit dehydrated. Patient was a creatinine is 1.42 diabetes with us and is on metformin at home. 09/25/2021 Patient evaluated today sitting in the chair. He is answering any questions and asked appears very lethargic, oxygen saturation 88% on 8 liters high flow cannula last documented. Upon my assessment patient did appear lethargic and hypoxic did increase his oxygen to 10 L high flow and was able to obtain 93-94% saturation rating. Blood pressure 150/85, respirations 19, heart 87, afebrile. Patient is a history of aphasia which is normal for him. He was able to state that he is feeling okay and denies any shortness of breath. Labs today; sodium 145, potassium 4.2, BUN 31.2, creatinine 1.1, glucose in the 300s, AST 113, AST 63, alk phos 88. Patient continues on albuterol, IV azithromycin, Symbicort, IV Rocephin, dexamethasone, Lovenox, zinc, vitamins. 09/26/2021 Patient is pretty status is bit worse compared to yesterday patient required BiPAP last night and patient is presently on high flow nasal cannula oxygen along with the nonrebreather 09/27/2021 Patient's respiratory status remains the same. Patient is still requiring BiPAP. Patient although feels better subjectively. On [id number]/25/2021 Patient's respiratory status remains the same is requiring a BiPAP on and off and is presently on 15 L high flow nasal cannula oxygen. His speech as per the nursing staff is better. His d-dimer is elevated I'll start him on Lovenox 40 twice a day 09/29/2021 Patient's hyponatremia improved patient also is confused compared to yesterday this is probably because of the steroids, infection, prolonged hospitalization. Pulmonary ordered CT of the head which is being obtain at this time. Patient isn't requirement remains the same. 09/30/2021 Patient is evaluated resting in the bed, he is getting an echocardiogram at the time of my assessment, which is pending at this time. Carotid Doppler shows no evidence for hemodynamically significant stenosis bilateral. Chest x-ray today shows worsening left lower lobe consolidation with minimal infiltrate at the right midlung. Brain CT completed yesterday shows a focal area of low attenuation right frontal lobe was absent rush-white matter differentiation and a nonvascular territory concerning for mass/edema, chronic microvascular ischemic changes and lacunar infarcts most likely chronic findings. Imaging was reviewed by neurology who recommended an MRI with and without contrast to rule out stroke first mass as he felt it was more likely subacute changes suspicious for stroke in the right frontal lobe. Venous Doppler yesterday was negative for bilateral DVT. D-dimer today 3.92, sodium 142, potassium 4.2, BUN 29.8, creatinine 1, blood sugars in the 170s, AST 39, ALT 54, LDH 419, CRP 4.6. Triglycerides elevated at 190, HDL 30. Vitals reviewed today shows a temp of 97.3, heart rate 90s sinus rhythm, blood pressure 130/86, oxygen saturation is 91% on a BiPAP with FiO2 70%. Patient has been unable to quit completely a PT evaluation due to his respiratory status, speech therapy is pending at this time. Continues on IV antibiotics in the form of azithromycin, X, zinc, multivitamins, Decadron, bronchodilators. He is being followed closely by pul monary and neurology services. Review of systems: Patient is confused unreliable All inpatient medications were reviewed and appropriate changes in these medications as dictated in the interval history and assessment and plan. PHYSICAL EXAMINATION: GENERAL: The patient is alert and oriented x1, mild respiratory distress. Well developed, well nourished. HEENT: Pupils are round and equally reacting to light. EOMI. No scleral icterus. No conjunctival pallor. Normocephalic, atraumatic. No pharyngeal erythema. No thyromegaly. CARDIOVASCULAR: S1 and S2 present. No murmurs, rubs, or gallops. PULMONARY: Coarse rhonchi bilateral ABDOMEN: Soft, nontender, nondistended, normoactive bowel sounds. No palpable organomegaly. MUSCULOSKELETAL: No joint swelling or deformity. EXTREMITIES: No cyanosis, clubbing, mild peripheral edema NEUROLOGICAL: Gross neurological examination did not reveal any focal deficits. Unable to fully complete due to echo being performed at bedside. SKIN: No rashes. Assessment and plan -Acute hypoxic respiratory failure secondary to COVID 19 pneumonia; Patient d oesn't qualify for a Remdesivir. on BiPAP -Acute renal failure possibly secondary to intravascular depletion and dehydration, resolved at this time -Altered Mental status secondary to toxic encephalopathy from Decadron, infection with a competent of her prolonged hospitalization leading to [place] rs, rule out subacute stroke, neurology consult, MRI pending -Type 2 diabetes mellitus with hyperglycemia, improving -Hypertension -Hyperlipidemia -transaminitis secondary to Covid 19 infection -Elevated D-Dimer secondary to Covid 19 infection -Elevated inflammatory markers of Covid 19 -Obstructive sleep apnea patient doesn't use any oxygen at home patient quit smoking many years ago DVT prophylaxis: Lovenox Plan MRI pending Echo pending Continue neuro checks Continue IV antibiotics Continue decadron, zinc, vitamins, lovenox Continue bronchodilators Titrate oxygen as needed Present insulin regimen Continue all other supportive care Prognosis remains guarded for this patient Objective - Vital Signs Vital signs: Vital Signs Temp 97.3 F L 09/30/21 08:00 Pulse 90 09/30/21 08:00 Resp 24 09/30/21 08:00 BP 133/86 09/30/21 08:00 Pulse Ox 91 L 09/30/21 08:00 Intake & Output 09/29/21 09/30/21 09/30/21 18:59 06:59 18:59 Output Total 1000 800 Balance -1000 -800 Output: Urine 1000 800 Other: Voiding Method Indwelling Catheter Indwelling Catheter Indwelling Catheter - Labs CBC & Chem 7: 09/27/21 06:45 09/30/21 05:04 Labs: Abnormal Lab Results - Last 24 Hours (Table) 09/29/21 09/29/21 09/29/21 Range/Units 14:21 16:36 20:41 D-Dimer (<0.60) mg/L FEU BUN (9.0-27.0) mg/dL BUN/Creatinine Ratio (12.00-20.00) Ratio Glucose (70-110) mg/dL POC Glucose (mg/dL) 205 H 232 H (75-99) mg/dL Calcium (8.7-10.3) mg/dL AST (14-35) U/L ALT (10-49) U/L Lactate Dehydrogenase (120-246) U/L C-Reactive Protein (0.00-0.80) mg/dL Total Protein (6.2-8.2) g/dL Albumin (3.8-4.9) g/dL Albumin/Globulin Ratio (1.60-3.17) g/dL Triglycerides 190.00 H (0.00-149.00) mg/dL HDL Cholesterol 30.10 L (40.00-60.00) mg/dL 09/30/21 09/30/21 09/30/21 Range/Units 05:04 05:04 07:24 D-Dimer 3.92 H (<0.60) mg/L FEU BUN 29.8 H (9.0-27.0) mg/dL BUN/Creatinine Ratio 31.30 H (12.00-20.00) Ratio Glucose 177 H (70-110) mg/dL POC Glucose (mg/dL) 363 H (75-99) mg/dL Calcium 8.3 L (8.7-10.3) mg/dL AST 39 H (14-35) U/L ALT 54 H (10-49) U/L Lactate Dehydrogenase 419 H (120-246) U/L C-Reactive Protein 4.60 H (0.00-0.80) mg/dL Total Protein 5.4 L (6.2-8.2) g/dL Albumin 2.7 L (3.8-4.9) g/dL Albumin/Globulin Ratio 0.97 L (1.60-3.17) g/dL Triglycerides (0.00-149.00) mg/dL HDL Cholesterol (40.00-60.00) mg/dL 09/30/21 Range/Units 11:49 D-Dimer (<0.60) mg/L FEU BUN (9.0-27.0) mg/dL BUN/Creatinine Ratio (12.00-20.00) Ratio Glucose (70-110) mg/dL POC Glucose (mg/dL) 179 H (75-99) mg/dL Calcium (8.7-10.3) mg/dL AST (14-35) U/L ALT (10-49) U/L Lactate Dehydrogenase (120-246) U/L C-Reactive Protein (0.00-0.80) mg/dL Total Protein (6.2-8.2) g/dL Albumin (3.8-4.9) g/dL Albumin/Globulin Ratio (1.60-3.17) g/dL Triglycerides (0.00-149.00) mg/dL HDL Cholesterol (40.00-60.00) mg/dL
--- NOTE | 2021-09-30 14:24 | P.PN ---
Subjective Progress Note Date: 09/30/21 Principal diagnosis: Dyspnea This is a 76-year-old male patient who follows with the [facility] system as his primary care provider. He has a history of chronic obstructive pulmonary disease, hypertension, hyperlipidemia, diabetes mellitus, obstructive sleep apnea maintained on CPAP at a pressure of 11 cm of water with C-Flex of 3. He has a 2 week history of increasing shortness of breath, cough and congestion. He presented here to the emergency room yesterday for the same. X-ray reveals bilateral patchy infiltrates left greater than right consistent with COVID-19 pneumonia. White count 8.2. Hemoglobin 12.0. D-dimer 2.07. Sodium 140. Potassium 4.0. Creatinine 1.4. AST 85. ALT 50. LDH 1625. C-reactive protein 38.4. Pro-calcitonin 4.89. [place] virus by PCR positive. He's been initiated on Decadron, vitamin supplements. If he did receive Lovenox 100 mg subcu once yesterday. Normal saline at 75 ML's per hour. He is seen today in consultation in the emergency department. He is currently sitting up awake and alert. Somewhat slow to respond. Somewhat of a poor historian. His daughter is present in the room in supplies most of the information. Is currently maintaining O2 saturations in the low 90s on 6 L high flow nasal cannula. He's been afebrile. Slightly tachycardic. Hypertensive. On 09/25/2021 patient seen in follow-up on medical surgical floor, he is a poor historian, he is currently sitting up in the recliner, he is currently on 8 L of oxygen and his oxygen demand has increased compared to yesterday when he was on 6 L per high flow nasal cannula. Pulse ox is currently 88-89%, he is afebrile, remains hypertensive with blood pressure in the 180s over 107, with a mean of 133 bpm. D-dimer came back elevated at 2.07, lower extremity Dopplers showed no evidence of DVTs in both. His been afebrile, does have a congestive cough, overall his mentation is confused and sleepy. He is currently on the Decadron 6 mg daily, he is on inhaled bronchodilators. Cough is congested, patient does have underlying history of COPD, we will add empiric antibiotics today. We'll obtain follow up pro-calcitonin level. Initial pro-calcitonin level on admission was elevated to 4.89. On 09/26/2021 patient seen in follow-up medical surgical floor. He is confused, but his responsive, he denies any acute distress. He was taken off the BiPAP support this morning, he is currently on 15 L high flow oxygen, and his pulse ox is 89-91%, he removes his oxygen at times, desaturates, becomes more confused. Low-grade fevers in the last 24 hours with a temp of 99.5F. Lung sounds reveal diffuse coarse inspiratory crackles throughout the lung baxter. No complaints of chest pain, occasional cough, no phlegm production. His chest x-ray today shows stable bibasilar and left peripheral COVID infiltrates, and 8 mm nodular density at the right lower lung with a recommendation of follow-up CT scanning of the chest to exclude underlying pulmonary nodule. Patient continues on Rocephin and azithromycin for empiric antibiotic coverage, he is on Decadron 6 mg daily, he is on prophylactic dose of Lovenox. Today's labs have been reviewed, his white blood cell count 8.12, hemoglobin is 12.4, serum sodium is 147, potassium is 4.0, chloride is 111, B1 is 32, creatinine is 1.2, ferritin level is improving and is down to 1227, LDH is down to 477, improved and CRP is also improving and is down to 7.8, follow up pro-calcitonin was improved and was down to 1.53. On 09/27/2021 patient seen in follow-up on medical surgical floor. He is curr ently sleeping, he is on BiPAP support, which he looks very comfortable on, breathing comfortably, BiPAP settings of 12 and 6 and FiO2 of 70%, his pulse ox is Usually better on BiPAP at 95%. On 15 L per high flow nasal cannula his pulse ox is 186%, afebrile, hemodynamically stable, still confused, not agitated. His last chest x-ray from 09/25/2001 showed stable bibasilar and left peripheral COVID infiltrates. Patient was also suspected to have bacteria superinfection, he was placed on azithromycin and Rocephin, his pro-calcitonin was improving, and is down to 0.73 on today's labs from the original value of 4.89 on 09/23/2021. White count is 8.4, hemoglobin is 0.8, his d-dimer is 3.19, sodium is 146, patient remains on D5W at 50 ML per hour, potassium 3.6, B1 is 29, creatinine is 1.His LDH is slightly improved and is down to 1164, CRP is 12.1, improved since admission. Appears to be in no acute distress. Appetite is poor, he is only consuming about 25% of his meals. On 09/29/2021 patient seen in follow-up on medical surgical floor. Patient remains confused, but more awake on today's exam, he has been alternating between BiPAP with pressures of 12.6 and FiO2 of 70% and 15 L high flow oxygen. Pulse ox is 91-92%, his been afebrile. He is only oriented to self, very disoriented to place and time, confused. Does not appear to be in respiratory distress. He does have a cough, which is congested and his mouth has dried up phlegm, oral mucous membranes are extremely dry. Patient has had very poor oral intake related to being BiPAP dependent. Currently tolerating high flow nasal cannula much better, although still remains very confused. But at this point probably able to tolerate some oral feedings. Lung sounds reveal diffuse rhonchi. Needs pulmonary toileting and aspiration precautions. Patient's family was in yesterday to see him for [place], and they were concerned about his altered mentation. We will obtain brain CT without today. Remains on antibiotics with azithromycin and Rocephin. He remains on D5W at a rate of 50 ML per hour, Decadron 6 mg daily and Lovenox 40 mg twice daily. His last d- dimer from yesterday was up trending was up to 6.07 at which point his Lovenox dose has been increased to twice daily. His serum sodium has normalized and was down to 144 on yesterday's labs. BUN is 28 creatinine is 1. Inflammatory markers were improving since admission and LDH was down to 413, and CRP was 8.6. Procalcitonin was down to 0.73 On 09/30/2021 patient seen in follow-up on medical surgical floor. he remains confused, but awake and alert, but his speech does not make sense. No unilateral weakness noted. Still significantly altered mentation. This morning he is on Airvo at 12/6 and FiO2 of 50%, his pulse ox is 91-95%. Today he has a strong effective cough, has a bit of a chest congestion, congested cough. Afebrile, hemodynamically he is stable. He asked to have the BiPAP mask removed, and he was placed on 15 L per high flow nasal cannula, breathing fairly comfortably. Yesterday's chest x-ray showed worsening left lower lobe consolidation with minimal infiltration through the right midlung. Patient is currently on a combination of azithromycin and Rocephin, his last pro-calcitonin was down to 0.73. Yesterday CT of the brain was obtained in view of altered mental status, and he was found to have a focal area of low attenuation in the right frontal lobe, stat neurology evaluation was requested, an MRI of the brain with and without to rule out acute CVA was recommended. However a subacute right frontal lobe CVA is suspected. Venous Doppler yesterday was negative for bilateral DVT, today's d-dimer is 3.92, serum sodium has normalized and is down to 142, potassium is 4.2, BUN is 29.8, creatinine is 1, but sugars in the 170s range, AST 39, ALT is 54, LDH is 419, CRP is 4.6. Vital signs show no evidence of fever, patient is in sinus mechanism with a controlled rate, blood pressure stable 130/86. Currently patient remains on D5W at a rate of 50 ML per hour, oral intake has been limited still. However he is able to take in some Ensure with supervision and assistance. He continues on multivitamins, he continues on Decadron. Objective - Vital Signs Vital signs: Vital Signs Temp 97.3 F L 09/30/21 08:00 Pulse 90 09/30/21 08:00 Resp 24 09/30/21 08:00 BP 133/86 09/30/21 08:00 Pulse Ox 91 L 09/30/21 08:00 Intake & Output 09/29/21 09/30/21 09/30/21 18:59 06:59 18:59 Output Total 1000 800 Balance -1000 -800 Output: Urine 1000 800 Other: Voiding Method Indwelling Catheter Indwelling Catheter Indwelling Catheter - Exam GENERAL EXAM: More awake, but still very confused 76-year-old white male, currently on 15 L of oxygen with pulse ox of 92%, alternating with BiPAP support with 12.6 and FiO2 of 70% HEAD: Normocephalic/atraumatic. EYES: Normal reaction of pupils, equal size. Conjunctiva pink, sclera white. NOSE: Clear with pink turbinates. MOUTH: dry oral mucous membranes, with dried oral secretions THROAT: No erythema or exudates. NECK: No masses, no JVD, no thyroid enlargement, no adenopathy. CHEST: No chest wall deformity. Symmetrical expansion. LUNGS: Equal air entry with diffuse crackles, diffuse rhonchi, patient has a congested cough CVS: Regular rate and rhythm, normal S1 and S2, no gallops, no murmurs, no rubs ABDOMEN: Soft, nontender. No hepatosplenomegaly, normal bowel sounds, no guarding or rigidity. EXTREMITIES: No clubbing, no edema, no cyanosis, 2+ pulses and upper and lower extremities. MUSCULOSKELETAL: Muscle strength and tone normal. SPINE: No scoliosis or deformity SKIN: No rashes CENTRAL NERVOUS SYSTEM: Confused, but appears to be more alert, currently on 15 l/min. - Labs CBC & Chem 7: 09/27/21 06:45 09/30/21 05:04 Labs: Abnormal Lab Results - Last 24 Hours (Table) 09/29/21 09/29/21 09/29/21 Range/Units 14:21 16:36 20:41 D-Dimer (<0.60) mg/L FEU BUN (9.0-27.0) mg/dL BUN/Creatinine Ratio (12.00-20.00) Ratio Glucose (70-110) mg/dL POC Glucose (mg/dL) 205 H 232 H (75-99) mg/dL Calcium (8.7-10.3) mg/dL AST (14-35) U/L ALT (10-49) U/L Lactate Dehydrogenase (120-246) U/L C-Reactive Protein (0.00-0.80) mg/dL Total Protein (6.2-8.2) g/dL Albumin (3.8-4.9) g/dL Albumin/Globulin Ratio (1.60-3.17) g/dL Triglycerides 190.00 H (0.00-149.00) mg/dL HDL Cholesterol 30.10 L (40.00-60.00) mg/dL 09/30/21 09/30/21 09/30/21 Range/Units 05:04 05:04 07:24 D-Dimer 3.92 H (<0.60) mg/L FEU BUN 29.8 H (9.0-27.0) mg/dL BUN/Creatinine Ratio 31.30 H (12.00-20.00) Ratio Glucose 177 H (70-110) mg/dL POC Glucose (mg/dL) 363 H (75-99) mg/dL Calcium 8.3 L (8.7-10.3) mg/dL AST 39 H (14-35) U/L ALT 54 H (10-49) U/L Lactate Dehydrogenase 419 H (120-246) U/L C-Reactive Protein 4.60 H (0.00-0.80) mg/dL Total Protein 5.4 L (6.2-8.2) g/dL Albumin 2.7 L (3.8-4.9) g/dL Albumin/Globulin Ratio 0.97 L (1.60-3.17) g/dL Triglycerides (0.00-149.00) mg/dL HDL Cholesterol (40.00-60.00) mg/dL 09/30/21 Range/Units 11:49 D-Dimer (<0.60) mg/L FEU BUN (9.0-27.0) mg/dL BUN/Creatinine Ratio (12.00-20.00) Ratio Glucose (70-110) mg/dL POC Glucose (mg/dL) 179 H (75-99) mg/dL Calcium (8.7-10.3) mg/dL AST (14-35) U/L ALT (10-49) U/L Lactate Dehydrogenase (120-246) U/L C-Reactive Protein (0.00-0.80) mg/dL Total Protein (6.2-8.2) g/dL Albumin (3.8-4.9) g/dL Albumin/Globulin Ratio (1.60-3.17) g/dL Triglycerides (0.00-149.00) mg/dL HDL Cholesterol (40.00-60.00) mg/dL Assessment and Plan Plan: Assessment: #1. Acute hypoxic respiratory failure related to acute COVID-19 pneumonia, possibility of underlying pneumonia is also considered based on elevated pro- calcitonin level of 4.89. Patient presented to the hospital on 09/23/2021 with 2 weeks of symptoms, he was outside the window for Remdesivir. He is not vaccinated against COVID-19. Today on 09/29/2021 patient is on high flow oxygen at 15 L, and alternate it with BiPAP support at 12 and 6 and FiO2 of 70% #2. Elevated pro-calcitonin level, suggesting possibility of underlying bacterial infection, will cover with the combination of Rocephin and azithromycin, improving is down to 0.73 #3. Acute kidney injury related to dehydration and ATN, improved with IV hydration #4. Diabetes mellitus type 2 #5. Underlying history of sleep apnea on CPAP #6. Hypertension #7. Hyperlipidemia #8. Elevated d-dimer, with no evidence of DVT on lower extremity Dopplers #9. Hypernatremia, related to poor oral intake, improved with IV hydration with D5W #10. Pulmonary nodule, measuring 8 mm projecting at the right lower lobe, will need to be followed up on the CT of the chest with contrast #11. 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, CT of the brain without contrast on 09/28/2021 showed focal area of low attenuation in the right frontal lobe with abscess of the rush-white matter concerning for rush-white matter junction mass/edema or CVA, neurology is following #12. Altered mental status, possibly related to acute hypoxic,and toxic metabolic encephalopathy. We will obtain CT of the brain without today Plan: Previous CT results have been noted Mentation continues to be altered, but patient is awake and alert He has an ineffective cough He needs aggressive pulmonary toileting Maintain aspiration precautions BiPAP support intermittently High flow oxygen during the day and as tolerated We'll continue current medical treatment for his COVID-19 pneumonia and possible aspiration pneumonia We'll switch antibiotic coverage to Zosyn Neurology recommendations in regards to brain CT findings MRI of the brain with and without was recommended However right now patient is on too much oxygen and still BiPAP dependent to be able to go down to the MRI department We'll continue to follow his clinical course closely Overall prognosis is extremely guarded I performed a history & physical examination of the patient and discussed their management with my nurse practitioner, Terri Key. I reviewed the nurse practitioner's note and agree with the documented findings and plan of care. Lung sounds are positive for dim breath sounds throughout the lung baxter. The findings and the impression was discussed with the patient. I attest to the documentation by the nurse practitioner. Time with Patient: Less than 30
[2021-09-30 17:01] LABS: Glucose,Whole Blood 313 mg/dL (75-99)
[2021-09-30] MEDS: PIPERACILLIN-TAZOBACTAM 3.375 GM in SODIUM CHLORIDE 0.9% 100 ML IVPB SCH (18:20)
[2021-09-30 20:31] LABS: Glucose,Whole Blood 218 mg/dL (75-99)
[2021-09-30] MEDS: LATANOPROST 0.005% OPHTH DROPS 2.5 ML BTL BOTH EYES SCH (22:18)
[2021-10-01] MEDS: PIPERACILLIN-TAZOBACTAM 3.375 GM in SODIUM CHLORIDE 0.9% 100 ML IVPB SCH ×3 (01:07→15:39)
[2021-10-01 07:08] LABS: Glucose,Whole Blood 196 mg/dL (75-99)
[2021-10-01] MEDS: amLODIPine 5 MG TAB PO SCH (08:22)
[2021-10-01] MEDS: carvediloL 12.5 MG TAB PO SCH ×2 (08:22→17:15)
[2021-10-01] MEDS: GABAPENTIN 300 MG CAP PO SCH ×3 (08:22→23:01)
[2021-10-01] MEDS: ZINC SULFATE 220 MG CAP PO SCH (08:22)
[2021-10-01] MEDS: ASCORBIC ACID 500 MG TAB PO SCH (08:22)
[2021-10-01] MEDS: TAMSULOSIN 0.4 MG CAP.ER.24H PO SCH (08:22)
[2021-10-01] MEDS: CHOLECALCIFEROL 125 MCG (5000 IU) TABLET PO SCH (08:22)
[2021-10-01] MEDS: INSULIN ASPART (NovoLOG) 100 UNIT/ML VIAL SQ SCH ×6 (08:23→17:15)
[2021-10-01] MEDS: ENOXAPARIN 40 MG/0.4 ML SYRINGE SQ SCH ×2 (08:24→23:01)
[2021-10-01] MEDS: LIDOCAINE 5% PATCH TOPICAL SCH (08:24)
[2021-10-01] MEDS: DEXAMETHASONE SOD PHOSPHATE 10 MG/ML 1 ML VIAL IVP SCH (08:25)
[2021-10-01] MEDS: DEXTROSE 5% IN WATER 1,000 ML IV SCH ×2 (08:40→14:33)
[2021-10-01] MEDS: ALBUTEROL HFA INHALER INHALATION SCH ×4 (09:47→20:48)
[2021-10-01] MEDS: TIOTROPIUM 2.5 MCG INHALER INHALATION SCH (09:47)
[2021-10-01] MEDS: SYMBICORT 80-4.5 MCG INHALER INHALATION SCH ×2 (09:47→20:48)
[2021-10-01 10:43] LABS: Basophils # (A) 0.05 X 10*3/uL (0.00-0.10); Basophils % (A) 0.4 %; Eosinophils # (A) 0.01 X 10*3/uL (0.04-0.35); Eosinophils % (A) 0.1 %; HCT 42.3 % (39.6-50.0); Lymphocytes # (A) 1.14 X 10*3/uL (0.90-5.00); Lymphocytes % (A) 8.4 %; MCHC 30.7 g/dL (32.0-37.0); Mean Platelet Volume 10.3 fL (9.5-12.2); Monocytes # (A) 0.82 X 10*3/uL (0.20-1.00); Neutrophils # (A) 11.39 X 10*3/uL (1.80-7.70); Neutrophils % (A) 83.6 %; Platelet Count 279 X 10*3/uL (140-440); RBC 4.19 X 10*6/uL (4.40-5.60); RDW 13.7 % (11.5-14.5); WBC 13.62 X 10*3/uL (4.50-10.00)
[2021-10-01 12:02] LABS: Glucose,Whole Blood 189 mg/dL (75-99)
[2021-10-01 13:09] LABS: Magnesium 2.3 mg/dL (1.5-2.4)
[2021-10-01] MEDS: ASPIRIN 325 MG TAB PO SCH (14:30)
[2021-10-01 14:52] LABS: African American GFR (CKD) 84.4 (60.0-200.0); Albumin 2.6 g/dL (3.8-4.9); Albumin/Globulin Ratio 0.79 (1.60-3.17); Anion Gap 17.1 mmol/L (10.00-18.00); BUN/Creat Ratio 28.3 Ratio (12.00-20.00); Blood Urea Nitrogen 28.3 mg/dL (9.0-27.0); Calcium 8.3 mg/dL (8.7-10.3); Carbon Dioxide 18.9 mmol/L (20.0-27.5); Globulin 3.3 g/dL (1.6-3.3); Non-African American GFR(CKD) 72.8 (60.0-200.0); Total Bilirubin 0.4 mg/dL (0.30-1.20); Total Protein 5.9 g/dL (6.2-8.2)
--- NOTE | 2021-10-01 15:08 | P.PN ---
Subjective Progress Note Date: 10/01/21 Principal diagnosis: Dyspnea This is a 76-year-old male patient who follows with the [facility] system as his primary care provider. He has a history of chronic obstructive pulmonary disease, hypertension, hyperlipidemia, diabetes mellitus, obstructive sleep apnea maintained on CPAP at a pressure of 11 cm of water with C-Flex of 3. He has a 2 week history of increasing shortness of breath, cough and congestion. He presented here to the emergency room yesterday for the same. X-ray reveals bilateral patchy infiltrates left greater than right consistent with COVID-19 pneumonia. White count 8.2. Hemoglobin 12.0. D-dimer 2.07. Sodium 140. Potassium 4.0. Creatinine 1.4. AST 85. ALT 50. LDH 1625. C-reactive protein 38.4. Pro-calcitonin 4.89. [place] virus by PCR positive. He's been initiated on Decadron, vitamin supplements. If he did receive Lovenox 100 mg subcu once yesterday. Normal saline at 75 ML's per hour. He is seen today in consultation in the emergency department. He is currently sitting up awake and alert. Somewhat slow to respond. Somewhat of a poor historian. His daughter is present in the room in supplies most of the information. Is currently maintaining O2 saturations in the low 90s on 6 L high flow nasal cannula. He's been afebrile. Slightly tachycardic. Hypertensive. On 09/25/2021 patient seen in follow-up on medical surgical floor, he is a poor historian, he is currently sitting up in the recliner, he is currently on 8 L of oxygen and his oxygen demand has increased compared to yesterday when he was on 6 L per high flow nasal cannula. Pulse ox is currently 88-89%, he is afebrile, remains hypertensive with blood pressure in the 180s over 107, with a mean of 133 bpm. D-dimer came back elevated at 2.07, lower extremity Dopplers showed no evidence of DVTs in both. His been afebrile, does have a congestive cough, overall his mentation is confused and sleepy. He is currently on the Decadron 6 mg daily, he is on inhaled bronchodilators. Cough is congested, patient does have underlying history of COPD, we will add empiric antibiotics today. We'll obtain follow up pro-calcitonin level. Initial pro-calcitonin level on admission was elevated to 4.89. On 09/26/2021 patient seen in follow-up medical surgical floor. He is confused, but his responsive, he denies any acute distress. He was taken off the BiPAP support this morning, he is currently on 15 L high flow oxygen, and his pulse ox is 89-91%, he removes his oxygen at times, desaturates, becomes more confused. Low-grade fevers in the last 24 hours with a temp of 99.5F. Lung sounds reveal diffuse coarse inspiratory crackles throughout the lung baxter. No complaints of chest pain, occasional cough, no phlegm production. His chest x-ray today shows stable bibasilar and left peripheral COVID infiltrates, and 8 mm nodular density at the right lower lung with a recommendation of follow-up CT scanning of the chest to exclude underlying pulmonary nodule. Patient continues on Rocephin and azithromycin for empiric antibiotic coverage, he is on Decadron 6 mg daily, he is on prophylactic dose of Lovenox. Today's labs have been reviewed, his white blood cell count 8.12, hemoglobin is 12.4, serum sodium is 147, potassium is 4.0, chloride is 111, B1 is 32, creatinine is 1.2, ferritin level is improving and is down to 1227, LDH is down to 477, improved and CRP is also improving and is down to 7.8, follow up pro-calcitonin was improved and was down to 1.53. On 09/27/2021 patient seen in follow-up on medical surgical floor. He is curr ently sleeping, he is on BiPAP support, which he looks very comfortable on, breathing comfortably, BiPAP settings of 12 and 6 and FiO2 of 70%, his pulse ox is Usually better on BiPAP at 95%. On 15 L per high flow nasal cannula his pulse ox is 186%, afebrile, hemodynamically stable, still confused, not agitated. His last chest x-ray from 09/25/2001 showed stable bibasilar and left peripheral COVID infiltrates. Patient was also suspected to have bacteria superinfection, he was placed on azithromycin and Rocephin, his pro-calcitonin was improving, and is down to 0.73 on today's labs from the original value of 4.89 on 09/23/2021. White count is 8.4, hemoglobin is 0.8, his d-dimer is 3.19, sodium is 146, patient remains on D5W at 50 ML per hour, potassium 3.6, B1 is 29, creatinine is 1.His LDH is slightly improved and is down to 1164, CRP is 12.1, improved since admission. Appears to be in no acute distress. Appetite is poor, he is only consuming about 25% of his meals. On 09/29/2021 patient seen in follow-up on medical surgical floor. Patient remains confused, but more awake on today's exam, he has been alternating between BiPAP with pressures of 12.6 and FiO2 of 70% and 15 L high flow oxygen. Pulse ox is 91-92%, his been afebrile. He is only oriented to self, very disoriented to place and time, confused. Does not appear to be in respiratory distress. He does have a cough, which is congested and his mouth has dried up phlegm, oral mucous membranes are extremely dry. Patient has had very poor oral intake related to being BiPAP dependent. Currently tolerating high flow nasal cannula much better, although still remains very confused. But at this point probably able to tolerate some oral feedings. Lung sounds reveal diffuse rhonchi. Needs pulmonary toileting and aspiration precautions. Patient's family was in yesterday to see him for [place], and they were concerned about his altered mentation. We will obtain brain CT without today. Remains on antibiotics with azithromycin and Rocephin. He remains on D5W at a rate of 50 ML per hour, Decadron 6 mg daily and Lovenox 40 mg twice daily. His last d- dimer from yesterday was up trending was up to 6.07 at which point his Lovenox dose has been increased to twice daily. His serum sodium has normalized and was down to 144 on yesterday's labs. BUN is 28 creatinine is 1. Inflammatory markers were improving since admission and LDH was down to 413, and CRP was 8.6. Procalcitonin was down to 0.73 On 09/30/2021 patient seen in follow-up on medical surgical floor. he remains confused, but awake and alert, but his speech does not make sense. No unilateral weakness noted. Still significantly altered mentation. This morning he is on Airvo at 12/6 and FiO2 of 50%, his pulse ox is 91-95%. Today he has a strong effective cough, has a bit of a chest congestion, congested cough. Afebrile, hemodynamically he is stable. He asked to have the BiPAP mask removed, and he was placed on 15 L per high flow nasal cannula, breathing fairly comfortably. Yesterday's chest x-ray showed worsening left lower lobe consolidation with minimal infiltration through the right midlung. Patient is currently on a combination of azithromycin and Rocephin, his last pro-calcitonin was down to 0.73. Yesterday CT of the brain was obtained in view of altered mental status, and he was found to have a focal area of low attenuation in the right frontal lobe, stat neurology evaluation was requested, an MRI of the brain with and without to rule out acute CVA was recommended. However a subacute right frontal lobe CVA is suspected. Venous Doppler yesterday was negative for bilateral DVT, today's d-dimer is 3.92, serum sodium has normalized and is down to 142, potassium is 4.2, BUN is 29.8, creatinine is 1, but sugars in the 170s range, AST 39, ALT is 54, LDH is 419, CRP is 4.6. Vital signs show no evidence of fever, patient is in sinus mechanism with a controlled rate, blood pressure stable 130/86. Currently patient remains on D5W at a rate of 50 ML per hour, oral intake has been limited still. However he is able to take in some Ensure with supervision and assistance. He continues on multivitamins, he continues on Decadron. On 10/01/2021 patient seen in follow-up on medical surgical floor. He is resting comfortably in bed, he continues to be confused, although somewhat improved, he was able to tell nursing staff he was in the hospital, and that the month was September. He is not using BiPAP support, he is currently on 15 L of oxygen per high flow nasal cannula his pulse ox is 90%, breathing is nonlabored, lung sounds are positive for diminished breath sounds with some scattered crackles. No cough, no chest pain, while signs have been stable patient has been afebrile. He continues on Decadron 6 mg daily, Lovenox 40 mg twice daily, he is on Zosyn for empiric antibiotic coverage, today's labs have been reviewed, white blood cell count is 13.6, hemoglobin is 13, d-dimer was improving on yesterday's labs and was down to 3.92, today's level still pending, sodium is 141, potassium is 6.0, and this has hemolyzed, BUN is 28 and creatinine is 1, pro-calcitonin level is pending. Objective - Vital Signs Vital signs: Vital Signs Temp 97.7 F 10/01/21 08:00 Pulse 98 10/01/21 08:45 Resp 20 10/01/21 08:45 BP 145/83 10/01/21 08:00 Pulse Ox 90 L 10/01/21 08:00 Intake & Output 09/30/21 10/01/21 10/01/21 18:59 06:59 18:59 Output Total 625 740 740 Balance -625 -740 -740 Weight 108.862 kg Output: Urine 625 740 740 Other: Voiding Method Indwelling Catheter Indwelling Catheter Indwelling Catheter # Voids 2 # Bowel Movements 0 - Exam GENERAL EXAM: More awake, but still very confused 76-year-old white male, currently on 15 L of oxygen with pulse ox of 92%, alternating with BiPAP support with 12.6 and FiO2 of 70% HEAD: Normocephalic/atraumatic. EYES: Normal reaction of pupils, equal size. Conjunctiva pink, sclera white. NOSE: Clear with pink turbinates. MOUTH: dry oral mucous membranes, with dried oral secretions THROAT: No erythema or exudates. NECK: No masses, no JVD, no thyroid enlargement, no adenopathy. CHEST: No chest wall deformity. Symmetrical expansion. LUNGS: Equal air entry with diffuse crackles, diffuse rhonchi, patient has a congested cough CVS: Regular rate and rhythm, normal S1 and S2, no gallops, no murmurs, no rubs ABDOMEN: Soft, nontender. No hepatosplenomegaly, normal bowel sounds, no guarding or rigidity. EXTREMITIES: No clubbing, no edema, no cyanosis, 2+ pulses and upper and lower extremities. MUSCULOSKELETAL: Muscle strength and tone normal. SPINE: No scoliosis or deformity SKIN: No rashes CENTRAL NERVOUS SYSTEM: Confused, but appears to be more alert, currently on 15 l/min. - Labs CBC & Chem 7: 10/01/21 08:13 10/01/21 08:13 Labs: Abnormal Lab Results - Last 24 Hours (Table) 09/30/21 09/30/21 10/01/21 Range/Units 17:00 20:28 07:07 WBC (4.50-10.00) X 10*3/uL RBC (4.40-5.60) X 10*6/uL MCV (80.0-97.0) fL MCHC (32.0-37.0) g/dL Immature Gran # (0.00-0.04) X 10*3/uL Neutrophils # (1.80-7.70) X 10*3/uL Eosinophils # (0.04-0.35) X 10*3/uL Potassium (3.5-5.5) mmol/L Carbon Dioxide (20.0-27.5) mmol/L BUN (9.0-27.0) mg/dL BUN/Creatinine Ratio (12.00-20.00) Ratio Glucose (70-110) mg/dL POC Glucose (mg/dL) 313 H 218 H 196 H (75-99) mg/dL Calcium (8.7-10.3) mg/dL AST (14-35) U/L ALT (10-49) U/L Total Protein (6.2-8.2) g/dL Albumin (3.8-4.9) g/dL Albumin/Globulin Ratio (1.60-3.17) g/dL 10/01/21 10/01/21 10/01/21 Range/Units 08:13 08:13 11:57 WBC 13.62 H (4.50-10.00) X 10*3/uL RBC 4.19 L (4.40-5.60) X 10*6/uL MCV 101.0 H (80.0-97.0) fL MCHC 30.7 L (32.0-37.0) g/dL Immature Gran # 0.21 H (0.00-0.04) X 10*3/uL Neutrophils # 11.39 H (1.80-7.70) X 10*3/uL Eosinophils # 0.01 L (0.04-0.35) X 10*3/uL Potassium 6.0 H (3.5-5.5) mmol/L Carbon Dioxide 18.9 L (20.0-27.5) mmol/L BUN 28.3 H (9.0-27.0) mg/dL BUN/Creatinine Ratio 28.30 H (12.00-20.00) Ratio Glucose 200 H (70-110) mg/dL POC Glucose (mg/dL) 189 H (75-99) mg/dL Calcium 8.3 L (8.7-10.3) mg/dL AST 87 H (14-35) U/L ALT 67 H (10-49) U/L Total Protein 5.9 L (6.2-8.2) g/dL Albumin 2.6 L (3.8-4.9) g/dL Albumin/Globulin Ratio 0.79 L (1.60-3.17) g/dL Assessment and Plan Plan: Assessment: #1. Acute hypoxic respiratory failure related to acute COVID-19 pneumonia, possibility of underlying pneumonia is also considered based on elevated pro- calcitonin level of 4.89. Patient presented to the hospital on 09/23/2021 with 2 weeks of symptoms, he was outside the window for Remdesivir. He is not vaccinated against COVID-19. Today on 09/29/2021 patient is on high flow oxygen at 15 L, and alternate it with BiPAP support at 12 and 6 and FiO2 of 70% #2. Elevated pro-calcitonin level, suggesting possibility of underlying bacterial infection, will cover with the combination of Rocephin and azithromycin, improving is down to 0.73 #3. Acute kidney injury related to dehydration and ATN, improved with IV hydration #4. Diabetes mellitus type 2 #5. Underlying history of sleep apnea on CPAP #6. Hypertension #7. Hyperlipidemia #8. Elevated d-dimer, with no evidence of DVT on lower extremity Dopplers #9. Hypernatremia, related to poor oral intake, improved with IV hydration with D5W #10. Pulmonary nodule, measuring 8 mm projecting at the right lower lobe, will need to be followed up on the CT of the chest with contrast #11. 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, CT of the brain without contrast on 09/28/2021 showed focal area of low attenuation in the right frontal lobe with abscess of the rush-white matter concerning for rush-white matter junction mass/edema or CVA, neurology is following #12. Altered mental status, related to the above, and possibility of subacute right frontal lobe CVA Plan: Patient has not required BiPAP support She is breathing comfortably, Remains on 15 L high flow nasal cannula Continue current dose Decadron Continue current dose Lovenox We'll obtain follow-up pro-calcitonin level, follow-up d-dimer he is tolerating oral intake with Glucerna Place a consultation to speech therapy Neurology recommendations Neurologically the patient seems to be slightly improved although still confused We'll continue with current medical management and continue to closely follow I performed a history & physical examination of the patient and discussed their management with my nurse practitioner, Terri Key. I reviewed the nurse practitioner's note and agree with the documented findings and plan of care. Lung sounds are positive for dim breath sounds throughout the lung baxter. The findings and the impression was discussed with the patient. I attest to the documentation by the nurse practitioner. Time with Patient: Less than 30
[2021-10-01 16:18] LABS: African American GFR (CKD) 85 (>60 ml/min/1.73 sqM); Anion Gap 6 mmol/L; Blood Urea Nitrogen 33 mg/dL (9-20); Calcium 8.3 mg/dL (8.4-10.2); Carbon Dioxide 27 mmol/L (22-30); Chloride 105 mmol/L (98-107); Glucose 229 mg/dL (74-99); Non-African American GFR(CKD) 74 (>60 ml/min/1.73 sqM); Potassium 4.3 mmol/L (3.5-5.1); Sodium 138 mmol/L (137-145)
[2021-10-01 17:04] LABS: Glucose,Whole Blood 198 mg/dL (75-99)
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
--- NOTE | 2021-10-01 20:22 | P.PN ---
Subjective Progress Note Date: 10/01/21 76-year-old male came in with complaints of shortness of breath cough has been going on for about the 2 weeks. Patient is hypoxic present has 6 L of oxygen. Found to have Covid 19 infection" is significant infiltrate on the chest x-ray with elevated liver enzymes elevated to calcitonin 4.89. Patient was also having diarrhea nausea vomiting. is bit dehydrated. Patient was a creatinine is 1.42 diabetes with us and is on metformin at home. 09/25/2021 Patient evaluated today sitting in the chair. He is answering any questions and asked appears very lethargic, oxygen saturation 88% on 8 liters high flow cannula last documented. Upon my assessment patient did appear lethargic and hypoxic did increase his oxygen to 10 L high flow and was able to obtain 93-94% saturation rating. Blood pressure 150/85, respirations 19, heart 87, afebrile. Patient is a history of aphasia which is normal for him. He was able to state that he is feeling okay and denies any shortness of breath. Labs today; sodium 145, potassium 4.2, BUN 31.2, creatinine 1.1, glucose in the 300s, AST 113, AST 63, alk phos 88. Patient continues on albuterol, IV azithromycin, Symbicort, IV Rocephin, dexamethasone, Lovenox, zinc, vitamins. 09/26/2021 Patient is pretty status is bit worse compared to yesterday patient required BiPAP last night and patient is presently on high flow nasal cannula oxygen along with the nonrebreather 09/27/2021 Patient's respiratory status remains the same. Patient is still requiring BiPAP. Patient although feels better subjectively. On [id number]/25/2021 Patient's respiratory status remains the same is requiring a BiPAP on and off and is presently on 15 L high flow nasal cannula oxygen. His speech as per the nursing staff is better. His d-dimer is elevated I'll start him on Lovenox 40 twice a day 09/29/2021 Patient's hyponatremia improved patient also is confused compared to yesterday this is probably because of the steroids, infection, prolonged hospitalization. Pulmonary ordered CT of the head which is being obtain at this time. Patient isn't requirement remains the same. 09/30/2021 Patient is evaluated resting in the bed, he is getting an echocardiogram at the time of my assessment, which is pending at this time. Carotid Doppler shows no evidence for hemodynamically significant stenosis bilateral. Chest x-ray today shows worsening left lower lobe consolidation with minimal infiltrate at the right midlung. Brain CT completed yesterday shows a focal area of low attenuation right frontal lobe was absent rush-white matter differentiation and a nonvascular territory concerning for mass/edema, chronic microvascular ischemic changes and lacunar infarcts most likely chronic findings. Imaging was reviewed by neurology who recommended an MRI with and without contrast to rule out stroke first mass as he felt it was more likely subacute changes suspicious for stroke in the right frontal lobe. Venous Doppler yesterday was negative for bilateral DVT. D-dimer today 3.92, sodium 142, potassium 4.2, BUN 29.8, creatinine 1, blood sugars in the 170s, AST 39, ALT 54, LDH 419, CRP 4.6. Triglycerides elevated at 190, HDL 30. Vitals reviewed today shows a temp of 97.3, heart rate 90s sinus rhythm, blood pressure 130/86, oxygen saturation is 91% on a BiPAP with FiO2 70%. Patient has been unable to quit completely a PT evaluation due to his respiratory status, speech therapy is pending at this time. Continues on IV antibiotics in the form of azithromycin, X, zinc, multivitamins, Decadron, bronchodilators. He is being followed closely by pul monary and neurology services. 10/01/2021 Patient is alert and oriented x3, he is a poor historian however. Difficult to carry on a conversation and complete a review of systems, as he is hard of h earing. He is lying on his right side during examination. Labs today show a white count of 13.62, D-Dimer of 2.55, sodium 138, potassium of 6, which was repeated and is now 4.3, BUN 33, creatinine 0.99, blood sugars 198, magnesium 2.3, AST 87, ALT 67, alk phos 109, total protein 5.9, albumin 2.6. Vitals reviewed; he is afebrile, heart rate 97, blood pressure 152/80, 91% on 10 L HF cannula. He was able to be weaned slightly from a 15 L high flow cannula. MRI of the brain is pending. Review of systems: Patient is unreliable, he was not answering direct questions, All inpatient medications were reviewed and appropriate changes in these medications as dictated in the interval history and assessment and plan. PHYSICAL EXAMINATION: GENERAL: The patient is alert and oriented x1, mild respiratory distress. Well developed, well nourished. HEENT: Pupils are round and equally reacting to light. EOMI. No scleral icterus. No conjunctival pallor. Normocephalic, atraumatic. No pharyngeal erythema. No thyromegaly. CARDIOVASCULAR: S1 and S2 present. No murmurs, rubs, or gallops. PULMONARY: Coarse rhonchi bilateral ABDOMEN: Soft, nontender, nondistended, normoactive bowel sounds. No palpable organomegaly. MUSCULOSKELETAL: No joint swelling or deformity. EXTREMITIES: No cyanosis, clubbing, mild peripheral edema NEUROLOGICAL: Gross neurological examination did not reveal any focal deficits. SKIN: No rashes. Assessment and plan -Acute hypoxic respiratory failure secondary to COVID 19 pneumonia; Patient doesn't qualify for a Remdesivir. on 10 L hi flow -Acute renal failure possibly secondary to intravascular depletion and dehydration, resolved at this time -Altered Mental status secondary to toxic encephalopathy from Decadron, infection with a competent of her prolonged hospitalization leading to , rule out subacute stroke, neurology consult, MRI pending -Type 2 diabetes mellitus with hyperglycemia, improving -Hypertension -Hyperlipidemia -transaminitis secondary to Covid 19 infection -Elevated D-Dimer secondary to Covid 19 infection -Elevated inflammatory markers of Covid 19 -Obstructive sleep apnea patient doesn't use any oxygen at home patient quit smoking many years ago DVT prophylaxis: Lovenox Plan MRI pending, Echo pending Continue neuro checks Continue IV antibiotics Continue decadron, zinc, vitamins, lovenox Continue bronchodilators Titrate oxygen as needed Present insulin regimen Continue all other supportive care Prognosis remains guarded for this patient Objective - Vital Signs Vital signs: Vital Signs Temp 97.7 F 10/01/21 08:00 Pulse 98 10/01/21 08:45 Resp 20 10/01/21 08:45 BP 145/83 10/01/21 08:00 Pulse Ox 90 L 10/01/21 08:00 Intake & Output 09/30/21 10/01/21 10/01/21 18:59 06:59 18:59 Output Total 346 090 740 Balance -121 -740 -740 Weight 108.862 kg Output: Urine 625 740 740 Other: Voiding Method Indwelling Catheter Indwelling Catheter Indwelling Catheter # Voids 2 # Bowel Movements 0 - Labs CBC & Chem 7: 10/01/21 08:13 10/01/21 15:47 Labs: Abnormal Lab Results - Last 24 Hours (Table) 09/30/21 09/30/21 09/30/21 Range/Units 11:49 17:00 20:28 WBC (4.50-10.00) X 10*3/uL RBC (4.40-5.60) X 10*6/uL MCV (80.0-97.0) fL MCHC (32.0-37.0) g/dL Immature Gran # (0.00-0.04) X 10*3/uL Neutrophils # (1.80-7.70) X 10*3/uL Eosinophils # (0.04-0.35) X 10*3/uL POC Glucose (mg/dL) 179 H 313 H 218 H (75-99) mg/dL 10/01/21 10/01/21 Range/Units 07:07 08:13 WBC 13.62 H (4.50-10.00) X 10*3/uL RBC 4.19 L (4.40-5.60) X 10*6/uL MCV 101.0 H (80.0-97.0) fL MCHC 30.7 L (32.0-37.0) g/dL Immature Gran # 0.21 H (0.00-0.04) X 10*3/uL Neutrophils # 11.39 H (1.80-7.70) X 10*3/uL Eosinophils # 0.01 L (0.04-0.35) X 10*3/uL POC Glucose (mg/dL) 196 H (75-99) mg/dL
[2021-10-01 21:29] LABS: Glucose,Whole Blood 422 mg/dL (75-99)
[2021-10-01] MEDS ORDERED: INSULIN ASPART (NovoLOG) 100 UNIT/ML VIAL SQ ONE (22:35)
[2021-10-01] MEDS ORDERED: INSULIN DETEMIR (LEVEMIR) 100 UNIT/ML SYR SQ ONE (22:45)
[2021-10-01 22:51] LABS: Glucose,Whole Blood 220 mg/dL (75-99)
[2021-10-01] MEDS: LATANOPROST 0.005% OPHTH DROPS 2.5 ML BTL BOTH EYES SCH (23:02)
[2021-10-02] MEDS: INSULIN ASPART (NovoLOG) 100 UNIT/ML VIAL SQ SCH ×8 (00:41→21:14)
[2021-10-02] MEDS: PIPERACILLIN-TAZOBACTAM 3.375 GM in SODIUM CHLORIDE 0.9% 100 ML IVPB SCH ×3 (00:42→17:35)
[2021-10-02] MEDS: DEXTROSE 5% IN WATER 1,000 ML IV SCH ×3 (00:43→21:15)
[2021-10-02 00:56] LABS: Estimated Average Glucose 174.29
[2021-10-02 02:16] LABS: Folate, Serum >20.00 ng/mL (4.40-31.00)
[2021-10-02 06:59] LABS: Glucose,Whole Blood 157 mg/dL (75-99)
[2021-10-02] MEDS: DEXAMETHASONE SOD PHOSPHATE 10 MG/ML 1 ML VIAL IVP SCH (08:36)
[2021-10-02] MEDS: ASCORBIC ACID 500 MG TAB PO SCH (08:36)
[2021-10-02] MEDS: ASPIRIN 325 MG TAB PO SCH (08:36)
[2021-10-02] MEDS: carvediloL 12.5 MG TAB PO SCH ×2 (08:36→17:35)
[2021-10-02] MEDS: TAMSULOSIN 0.4 MG CAP.ER.24H PO SCH (08:36)
[2021-10-02] MEDS: CHOLECALCIFEROL 125 MCG (5000 IU) TABLET PO SCH (08:37)
[2021-10-02] MEDS: LIDOCAINE 5% PATCH TOPICAL SCH (08:37)
[2021-10-02] MEDS: amLODIPine 5 MG TAB PO SCH (08:37)
[2021-10-02] MEDS: ENOXAPARIN 40 MG/0.4 ML SYRINGE SQ SCH ×2 (08:37→21:14)
[2021-10-02] MEDS: GABAPENTIN 300 MG CAP PO SCH ×3 (08:37→21:15)
[2021-10-02] MEDS: ZINC SULFATE 220 MG CAP PO SCH (08:37)
[2021-10-02] MEDS: ALBUTEROL HFA INHALER INHALATION SCH ×4 (10:04→21:19)
[2021-10-02] MEDS: SYMBICORT 80-4.5 MCG INHALER INHALATION SCH ×2 (10:05→21:19)
[2021-10-02] MEDS: TIOTROPIUM 2.5 MCG INHALER INHALATION SCH (10:05)
[2021-10-02 11:41] LABS: Glucose,Whole Blood 196 mg/dL (75-99)
--- NOTE | 2021-10-02 13:24 | P.PN ---
Subjective Progress Note Date: 10/02/21 This is a 76-year-old male patient who follows with the [facility] system as his primary care provider. He has a history of chronic obstructive pulmonary disease, hypertension, hyperlipidemia, diabetes mellitus, obstructive sleep apnea maintained on CPAP at a pressure of 11 cm of water with C-Flex of 3. He has a 2 week history of increasing shortness of breath, cough and congestion. He presented here to the emergency room yesterday for the same. X-ray reveals bilateral patchy infiltrates left greater than right consistent with COVID-19 pneumonia. White count 8.2. Hemoglobin 12.0. D-dimer 2.07. Sodium 140. Potassium 4.0. Creatinine 1.4. AST 85. ALT 50. LDH 1625. C-reactive protein 38.4. Pro-calcitonin 4.89. [place] virus by PCR positive. He's been initiated on Decadron, vitamin supplements. If he did receive Lovenox 100 mg subcu once yesterday. Normal saline at 75 ML's per hour. He is seen today in consultation in the emergency department. He is currently sitting up awake and alert. Somewhat slow to respond. Somewhat of a poor historian. His daughter is present in the room in supplies most of the information. Is currently maintaining O2 saturations in the low 90s on 6 L high flow nasal cannula. He's been afebrile. Slightly tachycardic. Hypertensive. On 09/25/2021 patient seen in follow-up on medical surgical floor, he is a poor historian, he is currently sitting up in the recliner, he is currently on 8 L of oxygen and his oxygen demand has increased compared to yesterday when he was on 6 L per high flow nasal cannula. Pulse ox is currently 88-89%, he is afebrile, remains hypertensive with blood pressure in the 180s over 107, with a mean of 133 bpm. D-dimer came back elevated at 2.07, lower extremity Dopplers showed no evidence of DVTs in both. His been afebrile, does have a congestive cough, overall his mentation is confused and sleepy. He is currently on the Decadron 6 mg daily, he is on inhaled bronchodilators. Cough is congested, patient does have underlying history of COPD, we will add empiric antibiotics today. We'll obtain follow up pro-calcitonin level. Initial pro-calcitonin level on admission was elevated to 4.89. On 09/26/2021 patient seen in follow-up medical surgical floor. He is confused, but his responsive, he denies any acute distress. He was taken off the BiPAP support this morning, he is currently on 15 L high flow oxygen, and his pulse ox is 89-91%, he removes his oxygen at times, desaturates, becomes more confused. Low-grade fevers in the last 24 hours with a temp of 99.5F. Lung sounds reveal diffuse coarse inspiratory crackles throughout the lung baxter. No complaints of chest pain, occasional cough, no phlegm production. His chest x-ray today shows stable bibasilar and left peripheral COVID infiltrates, and 8 mm nodular density at the right lower lung with a recommendation of follow-up CT scanning of the chest to exclude underlying pulmonary nodule. Patient continues on Rocephin and azithromycin for empiric antibiotic coverage, he is on Decadron 6 mg daily, he is on prophylactic dose of Lovenox. Today's labs have been reviewed, his white blood cell count 8.12, hemoglobin is 12.4, serum sodium is 147, potassium is 4.0, chloride is 111, B1 is 32, creatinine is 1.2, ferritin level is improving and is down to 1227, LDH is down to 477, improved and CRP is also improving and is down to 7.8, follow up pro-calcitonin was improved and was down to 1.53. On 09/27/2021 patient seen in follow-up on medical surgical floor. He is currently sleeping, he is on BiPAP support, which he looks very comfortable on, breathing comfortably, BiPAP settings of 12 and 6 and FiO2 of 70%, his pulse ox is Usually better on BiPAP at 95%. On 15 L per high flow nasal cannula his pulse ox is 186%, afebrile, hemodynamically stable, still confused, not agitated. His last chest x-ray from 09/25/2001 showed stable bibasilar and left peripheral COVID infiltrates. Patient was also suspected to have bacteria superinfection, he was placed on azithromycin and Rocephin, his pro-calcitonin was improving, and is down to 0.73 on today's labs from the original value of 4.89 on 09/23/2021. White count is 8.4, hemoglobin is 0.8, his d-dimer is 3.19, sodium is 146, patient remains on D5W at 50 ML per hour, potassium 3.6, B1 is 29, creatinine is 1.His LDH is slightly improved and is down to 1164, CRP is 12. 1, improved since admission. Appears to be in no acute distress. Appetite is poor, he is only consuming about 25% of his meals. The patient is seen today 09/28/2021 in follow-up on the regular medical floor. He is currently resting comfortably in bed. Arousable, drifts off easily, in no acute distress. He is currently on 15 L high flow nasal cannula. He has been utilizing the BiPAP as well with settings of 12/6 and 70% FiO2. He has normal saline running at 50 MLS per hour. D-dimer 6.07. Sodium 144. Potassium 3.8. Creatinine 1.0. LDH 413. C-reactive protein 8.6. Blood glucose 161. He remains on Lovenox 40 mg twice a day, Decadron, bronchodilators, vitamin supplements. He is on antibiotics in the form of ceftriaxone and azithromycin. The patient is seen today 10/02/2021 in follow-up on the regular medical floor. He has been slow to progress. He is still requiring 15 L high flow nasal cannula to maintain O2 saturations in the 90s. He has not worn BiPAP. He continues with a loose nonproductive cough. He is continued on Symbicort, Spiriva, albuterol, Decadron, Lovenox, vitamin supplements. Remains on D5W at 100 ML's per hour. Computed tomography scan of the head revealed possibility of subacute to chronic CVA in the right anterior frontal lobe lesion. Mass lesion less likely. Awaiting MRI of the brain. Echocardiogram pending. Blood glucose 157. Objective - Vital Signs Vital signs: Vital Signs Temp 97.6 F 10/02/21 10:00 Pulse 95 10/02/21 10:00 Resp 16 10/02/21 10:00 BP 132/77 10/02/21 10:00 Pulse Ox 92 L 10/02/21 10:00 Intake & Output 10/01/21 10/02/21 10/02/21 18:59 06:59 18:59 Intake Total 236 Output Total 1415 1250 Balance -1415 -1250 236 Intake: Oral 236 Output: Urine 1415 1250 Other: Voiding Method Indwelling Catheter Indwelling Catheter Indwelling Catheter # Voids 2 - Exam GENERAL EXAM: Arousable, 76-year-old male patient, on 15 L high flow nasal cannula, breathing comfortably, HEAD: Normocephalic/atraumatic. EYES: Normal reaction of pupils, equal size. Conjunctiva pink, sclera white. NOSE: Clear with pink turbinates. THROAT: No erythema or exudates. NECK: No masses, no JVD, no thyroid enlargement, no adenopathy. CHEST: No chest wall deformity. Symmetrical expansion. LUNGS: Equal air entry with diffuse crackles, diffuse rhonchi, patient has a congested cough CVS: Regular rate and rhythm, normal S1 and S2, no gallops, no murmurs, no rubs ABDOMEN: Soft, nontender. No hepatosplenomegaly, normal bowel sounds, no guarding or rigidity. EXTREMITIES: No clubbing, no edema, no cyanosis, 2+ pulses and upper and lower extremities. MUSCULOSKELETAL: Muscle strength and tone normal. SPINE: No scoliosis or deformity SKIN: No rashes CENTRAL NERVOUS SYSTEM: Confused, lethargic at times, arousable. No focal deficits, tone is normal in all 4 extremities. - Labs CBC & Chem 7: 10/01/21 08:13 10/01/21 23:10 Labs: Abnormal Lab Results - Last 24 Hours (Table) 10/01/21 10/01/21 10/01/21 Range/Units 08:13 15:47 15:47 D-Dimer 2.55 H (<0.60) mg/L FEU Potassium 6.0 H (3.5-5.5) mmol/L Carbon Dioxide 18.9 L (20.0-27.5) mmol/L BUN 28.3 H 33 H (9.0-27.0) mg/dL BUN/Creatinine Ratio 28.30 H (12.00-20.00) Ratio Glucose 200 H 229 H (70-110) mg/dL POC Glucose (mg/dL) (75-99) mg/dL Hemoglobin A1c (4.0-6.0) % Calcium 8.3 L 8.3 L (8.7-10.3) mg/dL AST 87 H (14-35) U/L ALT 67 H (10-49) U/L Total Protein 5.9 L (6.2-8.2) g/dL Albumin 2.6 L (3.8-4.9) g/dL Albumin/Globulin Ratio 0.79 L (1.60-3.17) g/dL Procalcitonin (0.02-0.09) ng/mL 10/01/21 10/01/21 10/01/21 Range/Units 15:47 15:47 17:03 D-Dimer (<0.60) mg/L FEU Potassium (3.5-5.5) mmol/L Carbon Dioxide (20.0-27.5) mmol/L BUN (9.0-27.0) mg/dL BUN/Creatinine Ratio (12.00-20.00) Ratio Glucose (70-110) mg/dL POC Glucose (mg/dL) 198 H (75-99) mg/dL Hemoglobin A1c 7.7 H (4.0-6.0) % Calcium (8.7-10.3) mg/dL AST (14-35) U/L ALT (10-49) U/L Total Protein (6.2-8.2) g/dL Albumin (3.8-4.9) g/dL Albumin/Globulin Ratio (1.60-3.17) g/dL Procalcitonin 0.17 H (0.02-0.09) ng/mL 10/01/21 10/01/21 10/01/21 Range/Units 21:27 22:48 23:10 D-Dimer (<0.60) mg/L FEU Potassium (3.5-5.5) mmol/L Carbon Dioxide (20.0-27.5) mmol/L BUN (9.0-27.0) mg/dL BUN/Creatinine Ratio (12.00-20.00) Ratio Glucose 168 H (70-110) mg/dL POC Glucose (mg/dL) 422 H 220 H (75-99) mg/dL Hemoglobin A1c (4.0-6.0) % Calcium (8.7-10.3) mg/dL AST (14-35) U/L ALT (10-49) U/L Total Protein (6.2-8.2) g/dL Albumin (3.8-4.9) g/dL Albumin/Globulin Ratio (1.60-3.17) g/dL Procalcitonin (0.02-0.09) ng/mL 10/02/21 10/02/21 Range/Units 06:58 11:40 D-Dimer (<0.60) mg/L FEU Potassium (3.5-5.5) mmol/L Carbon Dioxide (20.0-27.5) mmol/L BUN (9.0-27.0) mg/dL BUN/Creatinine Ratio (12.00-20.00) Ratio Glucose (70-110) mg/dL POC Glucose (mg/dL) 157 H 196 H (75-99) mg/dL Hemoglobin A1c (4.0-6.0) % Calcium (8.7-10.3) mg/dL AST (14-35) U/L ALT (10-49) U/L Total Protein (6.2-8.2) g/dL Albumin (3.8-4.9) g/dL Albumin/Globulin Ratio (1.60-3.17) g/dL Procalcitonin (0.02-0.09) ng/mL Assessment and Plan Assessment: 1 Acute hypoxic respiratory failure related to acute COVID-19 pneumonia, possibility of underlying pneumonia is also considered based on elevated pro- calcitonin level of 4.89. Patient presented to the hospital on 09/23/2021 with 2 weeks of symptoms, he was outside the window for Remdesivir. He is not vaccinated against COVID-19. Not a candidate for Baricitinib, currently on Zosyn. Today on 10/02/2021 patient is on high flow oxygen at 15 L 2 Elevated pro-calcitonin level, suggesting possibility of underlying bacterial infection, currently on Zosyn, improving is down to 0.17 3 Acute kidney injury related to dehydration and ATN, improved with IV hydration 4 Diabetes mellitus type 2 5 Underlying history of sleep apnea on CPAP 6 Hypertension 7 Hyperlipidemia 8 Elevated d-dimer, with no evidence of DVT on lower extremity Dopplers 9 Hypernatremia, related to poor oral intake, improved with IV hydration with D5W 10 Pulmonary nodule, measuring 8 mm projecting at the right lower lobe, will need to be followed up on the CT of the chest with contrast 11 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, CT of the brain without contrast on 09/28/2021 showed focal area of low attenuation in the right frontal lobe with abscess of the rush-white matter concerning for rush-white matter junction mass/edema or CVA, neurology is following awaiting MRI of the brain 12 Altered mental status, related to the above, and possibility of subacute right frontal lobe CVA Plan: The patient was seen and evaluated Currently on 15 L high flow nasal cannula Titrate the FiO2 as tolerated Currently not requiring BiPAP Continued on Zosyn Continued on Lovenox, Decadron, vitamin supplements MRI of the brain is pending Echocardiogram is pending Prognosis is guarded We will continue to follow I, the cosigning physician, performed a history & physical examination of the pa carolyn. Lungs sounds are coarse crackles in the bilateral bases. Maintaining good O2 saturations in the 90s on 15 L high flow nasal cannula I discussed the assessment and plan of care with my nurse practitioner, Iraida Jimenez. I attest to the above note as dictated by her.
[2021-10-02 17:00] LABS: Glucose,Whole Blood 351 mg/dL (75-99)
[2021-10-02 20:19] LABS: Glucose,Whole Blood 242 mg/dL (75-99)
[2021-10-02] MEDS: LATANOPROST 0.005% OPHTH DROPS 2.5 ML BTL BOTH EYES SCH (21:17)
[2021-10-03] MEDS: PIPERACILLIN-TAZOBACTAM 3.375 GM in SODIUM CHLORIDE 0.9% 100 ML IVPB SCH ×3 (01:24→17:15)
[2021-10-03] MEDS: DEXTROSE 5% IN WATER 1,000 ML IV SCH ×2 (05:52→13:22)
[2021-10-03 07:03] LABS: Glucose,Whole Blood 232 mg/dL (75-99)
[2021-10-03] MEDS: ALBUTEROL HFA INHALER INHALATION SCH ×4 (08:03→20:07)
[2021-10-03] MEDS: SYMBICORT 80-4.5 MCG INHALER INHALATION SCH ×2 (08:03→20:07)
[2021-10-03] MEDS: TIOTROPIUM 2.5 MCG INHALER INHALATION SCH (08:03)
[2021-10-03] MEDS: LIDOCAINE 5% PATCH TOPICAL SCH (09:16)
[2021-10-03] MEDS: ASPIRIN 325 MG TAB PO SCH (09:18)
[2021-10-03] MEDS: carvediloL 12.5 MG TAB PO SCH ×2 (09:19→17:16)
[2021-10-03] MEDS: CHOLECALCIFEROL 125 MCG (5000 IU) TABLET PO SCH (09:19)
[2021-10-03] MEDS: amLODIPine 5 MG TAB PO SCH (09:19)
[2021-10-03] MEDS: TAMSULOSIN 0.4 MG CAP.ER.24H PO SCH (09:19)
[2021-10-03] MEDS: ZINC SULFATE 220 MG CAP PO SCH (09:19)
[2021-10-03] MEDS: GABAPENTIN 300 MG CAP PO SCH ×3 (09:19→20:49)
[2021-10-03] MEDS: ASCORBIC ACID 500 MG TAB PO SCH (09:19)
[2021-10-03] MEDS: INSULIN ASPART (NovoLOG) 100 UNIT/ML VIAL SQ SCH ×7 (09:19→20:50)
[2021-10-03] MEDS: DEXAMETHASONE SOD PHOSPHATE 10 MG/ML 1 ML VIAL IVP SCH (09:21)
[2021-10-03] MEDS: ENOXAPARIN 40 MG/0.4 ML SYRINGE SQ SCH ×2 (09:21→20:50)
[2021-10-03 11:04] LABS: C Reactive Protein 1.5 mg/dL (0.00-0.80)
[2021-10-03 11:05] LABS: Anion Gap 12.4 mmol/L (10.00-18.00); BUN/Creat Ratio 23.54 Ratio (12.00-20.00); Blood Urea Nitrogen 23.4 mg/dL (9.0-27.0); Calcium 8.5 mg/dL (8.7-10.3); Carbon Dioxide 26.7 mmol/L (20.0-27.5); Non-African American GFR(CKD) 73.3 (60.0-200.0); Potassium 4.2 mmol/L (3.5-5.5)
[2021-10-03 11:32] LABS: Basophils # (A) 0.02 X 10*3/uL (0.00-0.10); Basophils % (A) 0.2 %; Eosinophils # (A) 0.01 X 10*3/uL (0.04-0.35); Eosinophils % (A) 0.1 %; HCT 40.2 % (39.6-50.0); HGB 12.9 g/dL (13.0-17.0); Lymphocytes # (A) 1.43 X 10*3/uL (0.90-5.00); Lymphocytes % (A) 11.1 %; MCH 31.5 pg (27.0-32.0); MCHC 32.1 g/dL (32.0-37.0); MCV 98.3 fL (80.0-97.0); Mean Platelet Volume 9.9 fL (9.5-12.2); Monocytes # (A) 0.86 X 10*3/uL (0.20-1.00); Monocytes % (A) 6.7 %; Neutrophils # (A) 10.42 X 10*3/uL (1.80-7.70); Neutrophils % (A) 80.4 %; Platelet Count 319 X 10*3/uL (140-440); RBC 4.09 X 10*6/uL (4.40-5.60); RDW 13.4 % (11.5-14.5); WBC 12.93 X 10*3/uL (4.50-10.00)
[2021-10-03 11:40] LABS: Glucose,Whole Blood 149 mg/dL (75-99)
[2021-10-03 16:32] LABS: Glucose,Whole Blood 265 mg/dL (75-99)
--- NOTE | 2021-10-03 17:36 | P.PN ---
Subjective Progress Note Date: 10/03/21 This is a 76-year-old male patient who follows with the [facility] system as his primary care provider. He has a history of chronic obstructive pulmonary disease, hypertension, hyperlipidemia, diabetes mellitus, obstructive sleep apnea maintained on CPAP at a pressure of 11 cm of water with C-Flex of 3. He has a 2 week history of increasing shortness of breath, cough and congestion. He presented here to the emergency room yesterday for the same. X-ray reveals bilateral patchy infiltrates left greater than right consistent with COVID-19 pneumonia. White count 8.2. Hemoglobin 12.0. D-dimer 2.07. Sodium 140. Potassium 4.0. Creatinine 1.4. AST 85. ALT 50. LDH 1625. C-reactive protein 38.4. Pro-calcitonin 4.89. [place] virus by PCR positive. He's been initiated on Decadron, vitamin supplements. If he did receive Lovenox 100 mg subcu once yesterday. Normal saline at 75 ML's per hour. He is seen today in consultation in the emergency department. He is currently sitting up awake and alert. Somewhat slow to respond. Somewhat of a poor historian. His daughter is present in the room in supplies most of the information. Is currently maintaining O2 saturations in the low 90s on 6 L high flow nasal cannula. He's been afebrile. Slightly tachycardic. Hypertensive. On 09/25/2021 patient seen in follow-up on medical surgical floor, he is a poor historian, he is currently sitting up in the recliner, he is currently on 8 L of oxygen and his oxygen demand has increased compared to yesterday when he was on 6 L per high flow nasal cannula. Pulse ox is currently 88-89%, he is afebrile, remains hypertensive with blood pressure in the 180s over 107, with a mean of 133 bpm. D-dimer came back elevated at 2.07, lower extremity Dopplers showed no evidence of DVTs in both. His been afebrile, does have a congestive cough, overall his mentation is confused and sleepy. He is currently on the Decadron 6 mg daily, he is on inhaled bronchodilators. Cough is congested, patient does have underlying history of COPD, we will add empiric antibiotics today. We'll obtain follow up pro-calcitonin level. Initial pro-calcitonin level on admission was elevated to 4.89. On 09/26/2021 patient seen in follow-up medical surgical floor. He is confused, but his responsive, he denies any acute distress. He was taken off the BiPAP support this morning, he is currently on 15 L high flow oxygen, and his pulse ox is 89-91%, he removes his oxygen at times, desaturates, becomes more confused. Low-grade fevers in the last 24 hours with a temp of 99.5F. Lung sounds reveal diffuse coarse inspiratory crackles throughout the lung baxter. No complaints of chest pain, occasional cough, no phlegm production. His chest x-ray today shows stable bibasilar and left peripheral COVID infiltrates, and 8 mm nodular density at the right lower lung with a recommendation of follow-up CT scanning of the chest to exclude underlying pulmonary nodule. Patient continues on Rocephin and azithromycin for empiric antibiotic coverage, he is on Decadron 6 mg daily, he is on prophylactic dose of Lovenox. Today's labs have been reviewed, his white blood cell count 8.12, hemoglobin is 12.4, serum sodium is 147, potassium is 4.0, chloride is 111, B1 is 32, creatinine is 1.2, ferritin level is improving and is down to 1227, LDH is down to 477, improved and CRP is also improving and is down to 7.8, follow up pro-calcitonin was improved and was down to 1.53. On 09/27/2021 patient seen in follow-up on medical surgical floor. He is currently sleeping, he is on BiPAP support, which he looks very comfortable on, breathing comfortably, BiPAP settings of 12 and 6 and FiO2 of 70%, his pulse ox is Usually better on BiPAP at 95%. On 15 L per high flow nasal cannula his pulse ox is 186%, afebrile, hemodynamically stable, still confused, not agitated. His last chest x-ray from 09/25/2001 showed stable bibasilar and left peripheral COVID infiltrates. Patient was also suspected to have bacteria superinfection, he was placed on azithromycin and Rocephin, his pro-calcitonin was improving, and is down to 0.73 on today's labs from the original value of 4.89 on 09/23/2021. White count is 8.4, hemoglobin is 0.8, his d-dimer is 3.19, sodium is 146, patient remains on D5W at 50 ML per hour, potassium 3.6, B1 is 29, creatinine is 1.His LDH is slightly improved and is down to 1164, CRP is 12. 1, improved since admission. Appears to be in no acute distress. Appetite is poor, he is only consuming about 25% of his meals. The patient is seen today 09/28/2021 in follow-up on the regular medical floor. He is currently resting comfortably in bed. Arousable, drifts off easily, in no acute distress. He is currently on 15 L high flow nasal cannula. He has been utilizing the BiPAP as well with settings of 12/6 and 70% FiO2. He has normal saline running at 50 MLS per hour. D-dimer 6.07. Sodium 144. Potassium 3.8. Creatinine 1.0. LDH 413. C-reactive protein 8.6. Blood glucose 161. He remains on Lovenox 40 mg twice a day, Decadron, bronchodilators, vitamin supplements. He is on antibiotics in the form of ceftriaxone and azithromycin. The patient is seen today 10/02/2021 in follow-up on the regular medical floor. He has been slow to progress. He is still requiring 15 L high flow nasal cannula to maintain O2 saturations in the 90s. He has not worn BiPAP. He continues with a loose nonproductive cough. He is continued on Symbicort, Spiriva, albuterol, Decadron, Lovenox, vitamin supplements. Remains on D5W at 100 ML's per hour. Computed tomography scan of the head revealed possibility of subacute to chronic CVA in the right anterior frontal lobe lesion. Mass lesion less likely. Awaiting MRI of the brain. Echocardiogram pending. Blood glucose 157. The patient is seen today 10/03/2021 in follow-up on the regular medical floor. Currently resting fairly comfortably in bed. Awake and alert somewhat confused to time and place. He is on 15 L high flow nasal cannula to maintain O2 saturations in the low 90s. He's been afebrile. Hemodynamically stable. White count 12.9. Hemoglobin 12.9. Sodium 142. Potassium 4.3. Creatinine 1.0. Glucose 175. LDH 323. C-reactive protein 1.5. He is continued on Decadron, Lovenox, vitamin supplements. Remains on antibiotics in the form of Zosyn. Continue on Symbicort, Spiriva, albuterol. Objective - Vital Signs Vital signs: Vital Signs Temp 98.1 F 10/03/21 14:00 Pulse 99 10/03/21 14:00 Resp 16 10/03/21 14:00 BP 121/72 10/03/21 14:00 Pulse Ox 91 L 10/03/21 14:00 Intake & Output 10/02/21 10/03/21 10/03/21 18:59 06:59 18:59 Intake Total 708 472 Output Total 800 1500 Balance -92 -1500 472 Intake: Oral 708 472 Output: Urine 800 1500 Other: Voiding Method Indwelling Catheter Indwelling Catheter Indwelling Catheter - Exam GENERAL EXAM: Weight, alert, confused, 76-year-old male patient, on 15 L high flow nasal cannula, breathing comfortably, HEAD: Normocephalic/atraumatic. EYES: Normal reaction of pupils, equal size. Conjunctiva pink, sclera white. NOSE: Clear with pink turbinates. THROAT: No erythema or exudates. NECK: No masses, no JVD, no thyroid enlargement, no adenopathy. CHEST: No chest wall deformity. Symmetrical expansion. LUNGS: Equal air entry with diffuse crackles, diffuse rhonchi, patient has a congested cough CVS: Regular rate and rhythm, normal S1 and S2, no gallops, no murmurs, no rubs ABDOMEN: Soft, nontender. No hepatosplenomegaly, normal bowel sounds, no guarding or rigidity. EXTREMITIES: No clubbing, no edema, no cyanosis, 2+ pulses and upper and lower extremities. MUSCULOSKELETAL: Muscle strength and tone normal. SPINE: No scoliosis or deformity SKIN: No rashes CENTRAL NERVOUS SYSTEM: Confused, lethargic at times, arousable. No focal deficits, tone is normal in all 4 extremities. - Labs CBC & Chem 7: 10/03/21 06:41 10/03/21 06:41 Labs: Abnormal Lab Results - Last 24 Hours (Table) 10/02/21 10/03/21 10/03/21 Range/Units 20:17 06:41 06:41 WBC 12.93 H (4.50-10.00) X 10*3/uL RBC 4.09 L (4.40-5.60) X 10*6/uL Hgb 12.9 L (13.0-17.0) g/dL MCV 98.3 H (80.0-97.0) fL Immature Gran # 0.19 H (0.00-0.04) X 10*3/uL Neutrophils # 10.42 H (1.80-7.70) X 10*3/uL Eosinophils # 0.01 L (0.04-0.35) X 10*3/uL BUN/Creatinine Ratio 23.54 H (12.00-20.00) Ratio Glucose 175 H (70-110) mg/dL POC Glucose (mg/dL) 242 H (75-99) mg/dL Calcium 8.5 L (8.7-10.3) mg/dL Lactate Dehydrogenase 323 H (120-246) U/L C-Reactive Protein 1.50 H (0.00-0.80) mg/dL 10/03/21 10/03/21 10/03/21 Range/Units 07:01 11:38 16:31 WBC (4.50-10.00) X 10*3/uL RBC (4.40-5.60) X 10*6/uL Hgb (13.0-17.0) g/dL MCV (80.0-97.0) fL Immature Gran # (0.00-0.04) X 10*3/uL Neutrophils # (1.80-7.70) X 10*3/uL Eosinophils # (0.04-0.35) X 10*3/uL BUN/Creatinine Ratio (12.00-20.00) Ratio Glucose (70-110) mg/dL POC Glucose (mg/dL) 232 H 149 H 265 H (75-99) mg/dL Calcium (8.7-10.3) mg/dL Lactate Dehydrogenase (120-246) U/L C-Reactive Protein (0.00-0.80) mg/dL Assessment and Plan Assessment: 1 Acute hypoxic respiratory failure related to acute COVID-19 pneumonia, possibility of underlying pneumonia is also considered based on elevated pro- calcitonin level of 4.89. Patient presented to the hospital on 09/23/2021 with 2 weeks of symptoms, he was outside the window for Remdesivir. He is not vaccinated against COVID-19. Not a candidate for Baricitinib, currently on Zosyn. Today on 10/03/2021 patient is on high flow oxygen at 15 L 2 Elevated pro-calcitonin level, suggesting possibility of underlying bacterial infection, currently on Zosyn, improving is down to 0.17 3 Acute kidney injury related to dehydration and ATN, improved with IV hydration 4 Diabetes mellitus type 2 5 Underlying history of sleep apnea on CPAP 6 Hypertension 7 Hyperlipidemia 8 Elevated d-dimer, with no evidence of DVT on lower extremity Dopplers 9 Hypernatremia, related to poor oral intake, improved with IV hydration with D5W 10 Pulmonary nodule, measuring 8 mm projecting at the right lower lobe, will need to be followed up on the CT of the chest with contrast 11 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, CT of the brain without contrast on 09/28/2021 showed focal area of low attenuation in the right frontal lobe with abscess of the rush-white matter concerning for rush-white matter junction mass/edema or CVA, neurology is following awaiting MRI of the brain 12 Altered mental status, related to the above, and possibility of subacute right frontal lobe CVA Plan: The patient was seen and evaluated Currently on 15 L high flow nasal cannula Titrate the FiO2 as tolerated Continued on Zosyn Continued on Lovenox, Decadron, vitamin supplements Prognosis is guarded We will continue to follow I, the cosigning physician, performed a history & physical examination of the patient. Lungs sounds are coarse crackles in the bilateral bases. Maintaining good O2 saturations in the 90s on 15 L high flow nasal cannula I discussed the assessment and plan of care with my nurse practitioner, Iraida Jimenez. I attest to the above note as dictated by her.
[2021-10-03 20:41] LABS: Glucose,Whole Blood 277 mg/dL (75-99)
[2021-10-03] MEDS: ACETAMINOPHEN TAB 500 MG TAB PO PRN (20:49)
[2021-10-03] MEDS: LATANOPROST 0.005% OPHTH DROPS 2.5 ML BTL BOTH EYES SCH (20:52)
[2021-10-04] MEDS: PIPERACILLIN-TAZOBACTAM 3.375 GM in SODIUM CHLORIDE 0.9% 100 ML IVPB SCH ×3 (00:21→16:01)
[2021-10-04] MEDS: DEXTROSE 5% IN WATER 1,000 ML IV SCH ×3 (06:01→21:20)
[2021-10-04 07:18] LABS: Glucose,Whole Blood 177 mg/dL (75-99)
[2021-10-04] MEDS: DEXAMETHASONE SOD PHOSPHATE 10 MG/ML 1 ML VIAL IVP SCH (08:18)
[2021-10-04] MEDS: ENOXAPARIN 40 MG/0.4 ML SYRINGE SQ SCH ×2 (08:18→21:17)
[2021-10-04] MEDS: ASCORBIC ACID 500 MG TAB PO SCH (08:19)
[2021-10-04] MEDS: CHOLECALCIFEROL 125 MCG (5000 IU) TABLET PO SCH (08:19)
[2021-10-04] MEDS: GABAPENTIN 300 MG CAP PO SCH ×3 (08:19→21:19)
[2021-10-04] MEDS: ASPIRIN 325 MG TAB PO SCH (08:19)
[2021-10-04] MEDS: carvediloL 12.5 MG TAB PO SCH ×2 (08:19→17:12)
[2021-10-04] MEDS: TAMSULOSIN 0.4 MG CAP.ER.24H PO SCH (08:19)
[2021-10-04] MEDS: ZINC SULFATE 220 MG CAP PO SCH (08:19)
[2021-10-04] MEDS: INSULIN ASPART (NovoLOG) 100 UNIT/ML VIAL SQ SCH ×7 (08:19→21:17)
[2021-10-04] MEDS: amLODIPine 5 MG TAB PO SCH (08:19)
[2021-10-04] MEDS: LIDOCAINE 5% PATCH TOPICAL SCH (08:21)
[2021-10-04] MEDS: SYMBICORT 80-4.5 MCG INHALER INHALATION SCH ×2 (09:22→21:30)
[2021-10-04] MEDS: ALBUTEROL HFA INHALER INHALATION SCH ×4 (09:22→21:30)
[2021-10-04] MEDS: TIOTROPIUM 2.5 MCG INHALER INHALATION SCH (09:22)
[2021-10-04 11:19] LABS: Glucose,Whole Blood 189 mg/dL (75-99)
--- NOTE | 2021-10-04 15:25 | P.PN ---
Subjective Progress Note Date: 10/04/21 This is a 76-year-old male patient who follows with the [facility] system as his primary care provider. He has a history of chronic obstructive pulmonary disease, hypertension, hyperlipidemia, diabetes mellitus, obstructive sleep apnea maintained on CPAP at a pressure of 11 cm of water with C-Flex of 3. He has a 2 week history of increasing shortness of breath, cough and congestion. He presented here to the emergency room yesterday for the same. X-ray reveals bilateral patchy infiltrates left greater than right consistent with COVID-19 pneumonia. White count 8.2. Hemoglobin 12.0. D-dimer 2.07. Sodium 140. Potassium 4.0. Creatinine 1.4. AST 85. ALT 50. LDH 1625. C-reactive protein 38.4. Pro-calcitonin 4.89. [place] virus by PCR positive. He's been initiated on Decadron, vitamin supplements. If he did receive Lovenox 100 mg subcu once yesterday. Normal saline at 75 ML's per hour. He is seen today in consultation in the emergency department. He is currently sitting up awake and alert. Somewhat slow to respond. Somewhat of a poor historian. His daughter is present in the room in supplies most of the information. Is currently maintaining O2 saturations in the low 90s on 6 L high flow nasal cannula. He's been afebrile. Slightly tachycardic. Hypertensive. On 09/25/2021 patient seen in follow-up on medical surgical floor, he is a poor historian, he is currently sitting up in the recliner, he is currently on 8 L of oxygen and his oxygen demand has increased compared to yesterday when he was on 6 L per high flow nasal cannula. Pulse ox is currently 88-89%, he is afebrile, remains hypertensive with blood pressure in the 180s over 107, with a mean of 133 bpm. D-dimer came back elevated at 2.07, lower extremity Dopplers showed no evidence of DVTs in both. His been afebrile, does have a congestive cough, overall his mentation is confused and sleepy. He is currently on the Decadron 6 mg daily, he is on inhaled bronchodilators. Cough is congested, patient does have underlying history of COPD, we will add empiric antibiotics today. We'll obtain follow up pro-calcitonin level. Initial pro-calcitonin level on admission was elevated to 4.89. On 09/26/2021 patient seen in follow-up medical surgical floor. He is confused, but his responsive, he denies any acute distress. He was taken off the BiPAP support this morning, he is currently on 15 L high flow oxygen, and his pulse ox is 89-91%, he removes his oxygen at times, desaturates, becomes more confused. Low-grade fevers in the last 24 hours with a temp of 99.5F. Lung sounds reveal diffuse coarse inspiratory crackles throughout the lung baxter. No complaints of chest pain, occasional cough, no phlegm production. His chest x-ray today shows stable bibasilar and left peripheral COVID infiltrates, and 8 mm nodular density at the right lower lung with a recommendation of follow-up CT scanning of the chest to exclude underlying pulmonary nodule. Patient continues on Rocephin and azithromycin for empiric antibiotic coverage, he is on Decadron 6 mg daily, he is on prophylactic dose of Lovenox. Today's labs have been reviewed, his white blood cell count 8.12, hemoglobin is 12.4, serum sodium is 147, potassium is 4.0, chloride is 111, B1 is 32, creatinine is 1.2, ferritin level is improving and is down to 1227, LDH is down to 477, improved and CRP is also improving and is down to 7.8, follow up pro-calcitonin was improved and was down to 1.53. On 09/27/2021 patient seen in follow-up on medical surgical floor. He is currently sleeping, he is on BiPAP support, which he looks very comfortable on, breathing comfortably, BiPAP settings of 12 and 6 and FiO2 of 70%, his pulse ox is Usually better on BiPAP at 95%. On 15 L per high flow nasal cannula his pulse ox is 186%, afebrile, hemodynamically stable, still confused, not agitated. His last chest x-ray from 09/25/2001 showed stable bibasilar and left peripheral COVID infiltrates. Patient was also suspected to have bacteria superinfection, he was placed on azithromycin and Rocephin, his pro-calcitonin was improving, and is down to 0.73 on today's labs from the original value of 4.89 on 09/23/2021. White count is 8.4, hemoglobin is 0.8, his d-dimer is 3.19, sodium is 146, patient remains on D5W at 50 ML per hour, potassium 3.6, B1 is 29, creatinine is 1.His LDH is slightly improved and is down to 1164, CRP is 12. 1, improved since admission. Appears to be in no acute distress. Appetite is poor, he is only consuming about 25% of his meals. The patient is seen today 09/28/2021 in follow-up on the regular medical floor. He is currently resting comfortably in bed. Arousable, drifts off easily, in no acute distress. He is currently on 15 L high flow nasal cannula. He has been utilizing the BiPAP as well with settings of 12/6 and 70% FiO2. He has normal saline running at 50 MLS per hour. D-dimer 6.07. Sodium 144. Potassium 3.8. Creatinine 1.0. LDH 413. C-reactive protein 8.6. Blood glucose 161. He remains on Lovenox 40 mg twice a day, Decadron, bronchodilators, vitamin supplements. He is on antibiotics in the form of ceftriaxone and azithromycin. The patient is seen today 10/02/2021 in follow-up on the regular medical floor. He has been slow to progress. He is still requiring 15 L high flow nasal cannula to maintain O2 saturations in the 90s. He has not worn BiPAP. He continues with a loose nonproductive cough. He is continued on Symbicort, Spiriva, albuterol, Decadron, Lovenox, vitamin supplements. Remains on D5W at 100 ML's per hour. Computed tomography scan of the head revealed possibility of subacute to chronic CVA in the right anterior frontal lobe lesion. Mass lesion less likely. Awaiting MRI of the brain. Echocardiogram pending. Blood glucose 157. The patient is seen today 10/03/2021 in follow-up on the regular medical floor. Currently resting fairly comfortably in bed. Awake and alert somewhat confused to time and place. He is on 15 L high flow nasal cannula to maintain O2 saturations in the low 90s. He's been afebrile. Hemodynamically stable. White count 12.9. Hemoglobin 12.9. Sodium 142. Potassium 4.3. Creatinine 1.0. Glucose 175. LDH 323. C-reactive protein 1.5. He is continued on Decadron, Lovenox, vitamin supplements. Remains on antibiotics in the form of Zosyn. Continue on Symbicort, Spiriva, albuterol. The patient is seen today 10/04/2021 in follow-up on the regular medical floor. He is awake and alert in no acute distress. Somewhat confused to time and place. He is resting comfortably in bed. He is still requiring 15 L high flow nasal cannula to maintain O2 saturation the high 80s low 90s. He's been afebril e. Hemodynamically stable. Blood glucose 177. He remains on Zosyn. Continued on Decadron, Lovenox, vitamin supplements. Continued on bronchodilators. Objective - Vital Signs Vital signs: Vital Signs Temp 97.5 F L 10/04/21 14:00 Pulse 92 10/04/21 14:00 Resp 21 10/04/21 14:00 BP 120/70 10/04/21 14:00 Pulse Ox 86 L 10/04/21 14:00 Intake & Output 10/03/21 10/04/21 10/04/21 18:59 06:59 18:59 Intake Total 708 Output Total 1200 550 600 Balance -492 -550 -600 Weight 108.862 kg Intake: Oral 708 Output: Urine 1200 550 600 Other: Voiding Method Indwelling Catheter Indwelling Catheter Indwelling Catheter - Exam GENERAL EXAM: Awake, alert, confused, 76-year-old male patient, on 15 L high flow nasal cannula, breathing comfortably, HEAD: Normocephalic/atraumatic. EYES: Normal reaction of pupils, equal size. Conjunctiva pink, sclera white. NOSE: Clear with pink turbinates. THROAT: No erythema or exudates. NECK: No masses, no JVD, no thyroid enlargement, no adenopathy. CHEST: No chest wall deformity. Symmetrical expansion. LUNGS: Equal air entry with diffuse crackles, diffuse rhonchi, patient has a congested cough CVS: Regular rate and rhythm, normal S1 and S2, no gallops, no murmurs, no rubs ABDOMEN: Soft, nontender. No hepatosplenomegaly, normal bowel sounds, no guarding or rigidity. EXTREMITIES: No clubbing, no edema, no cyanosis, 2+ pulses and upper and lower extremities. MUSCULOSKELETAL: Muscle strength and tone normal. SPINE: No scoliosis or deformity SKIN: No rashes CENTRAL NERVOUS SYSTEM: Confused, lethargic at times, arousable. No focal deficits, tone is normal in all 4 extremities. - Labs CBC & Chem 7: 10/03/21 06:41 10/03/21 06:41 Labs: Abnormal Lab Results - Last 24 Hours (Table) 10/03/21 10/03/21 10/04/21 Range/Units 16:31 20:40 07:17 POC Glucose (mg/dL) 265 H 277 H 177 H (75-99) mg/dL 10/04/21 Range/Units 11:18 POC Glucose (mg/dL) 189 H (75-99) mg/dL Assessment and Plan Assessment: 1 Acute hypoxic respiratory failure related to acute COVID-19 pneumonia, possibility of underlying pneumonia is also considered based on elevated pro-calcitonin level of 4.89. Patient presented to the hospital on 09/23/2021 with 2 weeks of symptoms, he was outside the window for Remdesivir. He is not vaccinated against COVID-19. Not a candidate for Baricitinib, currently on Zosyn. Today on 10/04/2021 patient is on high flow oxygen at 15 L 2 Elevated pro-calcitonin level, suggesting possibility of underlying bacterial infection, currently on Zosyn, improving is down to 0.17 3 Acute kidney injury related to dehydration and ATN, improved with IV hydration 4 Diabetes mellitus type 2 5 Underlying history of sleep apnea on CPAP 6 Hypertension 7 Hyperlipidemia 8 Elevated d-dimer, with no evidence of DVT on lower extremity Dopplers 9 Hypernatremia, related to poor oral intake, improved with IV hydration with D5W 10 Pulmonary nodule, measuring 8 mm projecting at the right lower lobe, will need to be followed up on the CT of the chest with contrast 11 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, CT of the brain without contrast on 09/28/2021 showed focal area of low attenuation in the right frontal lobe with abscess of the rush-white matter concerning for rush-white matter junction mass/edema or CVA, neurology is following awaiting MRI of the brain 12 Altered mental status, related to the above, and possibility of subacute right frontal lobe CVA Plan: The patient was seen and evaluated Currently on 15 L high flow nasal cannula Titrate the FiO2 as tolerated Continue bronchodilators Continued on Zosyn Continued on Lovenox, Decadron, vitamin supplements Follow-up chest x-ray and labs in a.m. Prognosis is guarded We will continue to follow I, the cosigning physician, performed a history & physical examination of the patient. Lungs sounds are coarse crackles in the bilateral bases. Maintaining good O2 saturations in the 90s on 15 L high flow nasal cannula I discussed the assessment and plan of care with my nurse practitioner, Iraida Jimenez. I attest to the above note as dictated by her.
[2021-10-04 16:49] LABS: Glucose,Whole Blood 292 mg/dL (75-99)
[2021-10-04 20:16] LABS: Glucose,Whole Blood 291 mg/dL (75-99)
[2021-10-04] MEDS: LATANOPROST 0.005% OPHTH DROPS 2.5 ML BTL BOTH EYES SCH (21:19)
--- NOTE | 2021-10-04 23:51 | P.PN ---
Subjective Progress Note Date: 10/04/21 Patient was seen for a follow-up. Patient is laying comfortably in the bed. Patient still has not had MRI of the brain done yet. Patient appears slightly delirious, slightly hyper verbal. Offers no complaints, denies headache. Objective - Vital Signs Vital signs: Vital Signs Temp 98.1 F 10/04/21 20:00 Pulse 98 10/04/21 20:00 Resp 18 10/04/21 20:00 BP 103/67 10/04/21 20:00 Pulse Ox 93 L 10/04/21 20:00 Intake & Output 10/04/21 10/04/21 10/05/21 06:59 18:59 06:59 Output Total 550 600 Balance -550 -600 Weight 108.862 kg Output: Urine 550 600 Other: Voiding Method Indwelling Catheter Indwelling Catheter - Exam Patient is alert and awake. He knows that it is September and states the year is 221. He knows he is in [facility]. Speech and language functions are normal. Pupils are round and reacting, visual baxter are full, face is symmetric, tongue protrudes the midline. Hearing appears normal. Muscle strength is normal in the arms and legs. Sensations are equal. No ataxia. - Labs CBC & Chem 7: 10/11/21 07:10 10/12/21 06:12 Labs: Abnormal Lab Results - Last 24 Hours (Table) 10/04/21 10/04/21 10/04/21 Range/Units 07:17 11:18 16:48 POC Glucose (mg/dL) 177 H 189 H 292 H (75-99) mg/dL 10/04/21 Range/Units 20:14 POC Glucose (mg/dL) 291 H (75-99) mg/dL Assessment and Plan Assessment: * Abnormal computed tomography scan of the head, with possibility of subacute to chronic CVA in the right anterior frontal lobe region. Mass lesion less likely. * Acute Covid pneumonia. * History of slurred speech since patient underwent cervical fusion 2 years ago. * Diabetes Plan: * Patient's slurred speech is chronic since his cervical fusion, but has got worse in the last 1-[address] head showed possibility of the remote stroke. Mass lesion appears less likely. Await MRI of the brain with and without contrast. Nurse reported that the patient's family declined, and wants to have any further testing done at [facility]. I personally spoke to patient's on the phone, and discussed about MRI. She says that he had previous "all kinds of MRIs" done at [facility] and wants to have it done at [place] after discharge, so it could be compared with the previous studies. * Patient has been started on aspirin 325 mg daily. * Carotid Doppler revealed no evidence of hemodynamically significant stenosis. Antegrade flow in the left vertebral artery. Right vertebral artery was not seen. * Await 2-D echo report. Apparently it has been completed, but not reported yet. * Hemoglobin A1c 7.7, B12 568, folate > 20, and TSH 1.82. * Lipid panel with cholesterol 124, LDL 55, HDL 30 and triglycerides 190. No indication for statins, as LDL is <70. * Patient on Lovenox 40 mg subcu twice a day for DVT prophylaxis. Addendum: ECHO report was available/signed on 10/09/2021 Limited study due to Covid exposure LVSF low normal, with EF 50-55% ECHO free space representing pericardial fat pad 2 or more wall segments not visualized.
[2021-10-05] MEDS: PIPERACILLIN-TAZOBACTAM 3.375 GM in SODIUM CHLORIDE 0.9% 100 ML IVPB SCH ×3 (00:16→15:47)
--- NOTE | 2021-10-05 07:11 | XR ---
EXAMINATION TYPE: XR chest 1V portable DATE OF EXAM: 10/05/2021 6:51 AM COMPARISON:Chest radiograph from 09/30/2021 CLINICAL INDICATION:Male, 76 years old with history of CoVID pneumonia; TECHNIQUE: Frontal view of the chest. FINDINGS: Lungs/Pleura: Similar aeration of the left lung if scattered airspace opacities. No evidence of pneum othorax. Small left pleural effusion suggested. Pulmonary vascularity: Unremarkable. Heart/mediastinum: Cardiomediastinal silhouette is unremarkable. Musculoskeletal: No acute osseous pathology. Fusion hardware in the cervical spine. IMPRESSION: Similar left lower lung base and mid lung airspace opacities.
[2021-10-05 07:33] LABS: Glucose,Whole Blood 180 mg/dL (75-99)
[2021-10-05] MEDS: LIDOCAINE 5% PATCH TOPICAL SCH (08:18)
[2021-10-05] MEDS: INSULIN ASPART (NovoLOG) 100 UNIT/ML VIAL SQ SCH ×7 (08:19→21:46)
[2021-10-05] MEDS: carvediloL 12.5 MG TAB PO SCH ×2 (08:20→17:27)
[2021-10-05] MEDS: TAMSULOSIN 0.4 MG CAP.ER.24H PO SCH (08:20)
[2021-10-05] MEDS: ASPIRIN 325 MG TAB PO SCH (08:20)
[2021-10-05] MEDS: GABAPENTIN 300 MG CAP PO SCH ×3 (08:20→20:40)
[2021-10-05] MEDS: ZINC SULFATE 220 MG CAP PO SCH (08:20)
[2021-10-05] MEDS: amLODIPine 5 MG TAB PO SCH (08:20)
[2021-10-05] MEDS: DEXAMETHASONE SOD PHOSPHATE 10 MG/ML 1 ML VIAL IVP SCH (08:20)
[2021-10-05] MEDS: ENOXAPARIN 40 MG/0.4 ML SYRINGE SQ SCH ×2 (08:20→20:39)
[2021-10-05] MEDS: ASCORBIC ACID 500 MG TAB PO SCH (08:21)
[2021-10-05] MEDS: DEXTROSE 5% IN WATER 1,000 ML IV SCH (08:21)
[2021-10-05] MEDS: CHOLECALCIFEROL 125 MCG (5000 IU) TABLET PO SCH (08:22)
[2021-10-05] MEDS: TIOTROPIUM 2.5 MCG INHALER INHALATION SCH (08:36)
[2021-10-05] MEDS: SYMBICORT 80-4.5 MCG INHALER INHALATION SCH ×2 (08:36→20:10)
[2021-10-05] MEDS: ALBUTEROL HFA INHALER INHALATION SCH ×4 (08:36→20:10)
[2021-10-05 11:46] LABS: Glucose,Whole Blood 241 mg/dL (75-99)
--- NOTE | 2021-10-05 12:44 | P.PN ---
Subjective Progress Note Date: 10/05/21 This is a 76-year-old male patient who follows with the [facility] system as his primary care provider. He has a history of chronic obstructive pulmonary disease, hypertension, hyperlipidemia, diabetes mellitus, obstructive sleep apnea maintained on CPAP at a pressure of 11 cm of water with C-Flex of 3. He has a 2 week history of increasing shortness of breath, cough and congestion. He presented here to the emergency room yesterday for the same. X-ray reveals bilateral patchy infiltrates left greater than right consistent with COVID-19 pneumonia. White count 8.2. Hemoglobin 12.0. D-dimer 2.07. Sodium 140. Potassium 4.0. Creatinine 1.4. AST 85. ALT 50. LDH 1625. C-reactive protein 38.4. Pro-calcitonin 4.89. [place] virus by PCR positive. He's been initiated on Decadron, vitamin supplements. If he did receive Lovenox 100 mg subcu once yesterday. Normal saline at 75 ML's per hour. He is seen today in consultation in the emergency department. He is currently sitting up awake and alert. Somewhat slow to respond. Somewhat of a poor historian. His daughter is present in the room in supplies most of the information. Is currently maintaining O2 saturations in the low 90s on 6 L high flow nasal cannula. He's been afebrile. Slightly tachycardic. Hypertensive. On 09/25/2021 patient seen in follow-up on medical surgical floor, he is a poor historian, he is currently sitting up in the recliner, he is currently on 8 L of oxygen and his oxygen demand has increased compared to yesterday when he was on 6 L per high flow nasal cannula. Pulse ox is currently 88-89%, he is afebrile, remains hypertensive with blood pressure in the 180s over 107, with a mean of 133 bpm. D-dimer came back elevated at 2.07, lower extremity Dopplers showed no evidence of DVTs in both. His been afebrile, does have a congestive cough, overall his mentation is confused and sleepy. He is currently on the Decadron 6 mg daily, he is on inhaled bronchodilators. Cough is congested, patient does have underlying history of COPD, we will add empiric antibiotics today. We'll obtain follow up pro-calcitonin level. Initial pro-calcitonin level on admission was elevated to 4.89. On 09/26/2021 patient seen in follow-up medical surgical floor. He is confused, but his responsive, he denies any acute distress. He was taken off the BiPAP support this morning, he is currently on 15 L high flow oxygen, and his pulse ox is 89-91%, he removes his oxygen at times, desaturates, becomes more confused. Low-grade fevers in the last 24 hours with a temp of 99.5F. Lung sounds reveal diffuse coarse inspiratory crackles throughout the lung baxter. No complaints of chest pain, occasional cough, no phlegm production. His chest x-ray today shows stable bibasilar and left peripheral COVID infiltrates, and 8 mm nodular density at the right lower lung with a recommendation of follow-up CT scanning of the chest to exclude underlying pulmonary nodule. Patient continues on Rocephin and azithromycin for empiric antibiotic coverage, he is on Decadron 6 mg daily, he is on prophylactic dose of Lovenox. Today's labs have been reviewed, his white blood cell count 8.12, hemoglobin is 12.4, serum sodium is 147, potassium is 4.0, chloride is 111, B1 is 32, creatinine is 1.2, ferritin level is improving and is down to 1227, LDH is down to 477, improved and CRP is also improving and is down to 7.8, follow up pro-calcitonin was improved and was down to 1.53. On 09/27/2021 patient seen in follow-up on medical surgical floor. He is currently sleeping, he is on BiPAP support, which he looks very comfortable on, breathing comfortably, BiPAP settings of 12 and 6 and FiO2 of 70%, his pulse ox is Usually better on BiPAP at 95%. On 15 L per high flow nasal cannula his pulse ox is 186%, afebrile, hemodynamically stable, still confused, not agitated. His last chest x-ray from 09/25/2001 showed stable bibasilar and left peripheral COVID infiltrates. Patient was also suspected to have bacteria superinfection, he was placed on azithromycin and Rocephin, his pro-calcitonin was improving, and is down to 0.73 on today's labs from the original value of 4.89 on 09/23/2021. White count is 8.4, hemoglobin is 0.8, his d-dimer is 3.19, sodium is 146, patient remains on D5W at 50 ML per hour, potassium 3.6, B1 is 29, creatinine is 1.His LDH is slightly improved and is down to 1164, CRP is 12. 1, improved since admission. Appears to be in no acute distress. Appetite is poor, he is only consuming about 25% of his meals. The patient is seen today 09/28/2021 in follow-up on the regular medical floor. He is currently resting comfortably in bed. Arousable, drifts off easily, in no acute distress. He is currently on 15 L high flow nasal cannula. He has been utilizing the BiPAP as well with settings of 12/6 and 70% FiO2. He has normal saline running at 50 MLS per hour. D-dimer 6.07. Sodium 144. Potassium 3.8. Creatinine 1.0. LDH 413. C-reactive protein 8.6. Blood glucose 161. He remains on Lovenox 40 mg twice a day, Decadron, bronchodilators, vitamin supplements. He is on antibiotics in the form of ceftriaxone and azithromycin. The patient is seen today 10/02/2021 in follow-up on the regular medical floor. He has been slow to progress. He is still requiring 15 L high flow nasal cannula to maintain O2 saturations in the 90s. He has not worn BiPAP. He continues with a loose nonproductive cough. He is continued on Symbicort, Spiriva, albuterol, Decadron, Lovenox, vitamin supplements. Remains on D5W at 100 ML's per hour. Computed tomography scan of the head revealed possibility of subacute to chronic CVA in the right anterior frontal lobe lesion. Mass lesion less likely. Awaiting MRI of the brain. Echocardiogram pending. Blood glucose 157. The patient is seen today 10/03/2021 in follow-up on the regular medical floor. Currently resting fairly comfortably in bed. Awake and alert somewhat confused to time and place. He is on 15 L high flow nasal cannula to maintain O2 saturations in the low 90s. He's been afebrile. Hemodynamically stable. White count 12.9. Hemoglobin 12.9. Sodium 142. Potassium 4.3. Creatinine 1.0. Glucose 175. LDH 323. C-reactive protein 1.5. He is continued on Decadron, Lovenox, vitamin supplements. Remains on antibiotics in the form of Zosyn. Continue on Symbicort, Spiriva, albuterol. The patient is seen today 10/04/2021 in follow-up on the regular medical floor. He is awake and alert in no acute distress. Somewhat confused to time and place. He is resting comfortably in bed. He is still requiring 15 L high flow nasal cannula to maintain O2 saturation the high 80s low 90s. He's been afebril e. Hemodynamically stable. Blood glucose 177. He remains on Zosyn. Continued on Decadron, Lovenox, vitamin supplements. Continued on bronchodilators. The patient is seen today 10/05/2021 in follow-up on the regular medical floor. He is currently resting comfortably in bed. Remains a bit confused. He has is maintaining O2 saturations in the high 80s low 90s on 15 L high flow nasal cannula. He is afebrile. Hemodynamically stable. Chest x-ray continues to show similar left lower lung base and mid lung airspace opacities. No evidence of pneumothorax. D-dimer 2.0. Blood glucose 180. Objective - Vital Signs Vital signs: Vital Signs Temp 97.9 F 10/05/21 11:06 Pulse 82 10/05/21 11:06 Resp 19 10/05/21 11:06 BP 105/62 10/05/21 11:06 Pulse Ox 87 L 10/05/21 11:06 Intake & Output 10/04/21 10/05/21 10/05/21 18:59 06:59 18:59 Output Total 600 875 Balance -600 -875 Weight 108.862 kg Output: Urine 600 875 Other: Voiding Method Indwelling Catheter Indwelling Catheter Indwelling Catheter # Voids 700 - Exam GENERAL EXAM: Awake, alert, pleasant 76-year-old male patient, on 15 L high flow nasal cannula, breathing comfortably, HEAD: Normocephalic/atraumatic. EYES: Normal reaction of pupils, equal size. Conjunctiva pink, sclera white. NOSE: Clear with pink turbinates. THROAT: No erythema or exudates. NECK: No masses, no JVD, no thyroid enlargement, no adenopathy. CHEST: No chest wall deformity. Symmetrical expansion. LUNGS: Equal air entry with diffuse crackles, diffuse rhonchi, patient has a congested cough CVS: Regular rate and rhythm, normal S1 and S2, no gallops, no murmurs, no rubs ABDOMEN: Soft, nontender. No hepatosplenomegaly, normal bowel sounds, no guarding or rigidity. EXTREMITIES: No clubbing, no edema, no cyanosis, 2+ pulses and upper and lower extremities. MUSCULOSKELETAL: Muscle strength and tone normal. SPINE: No scoliosis or deformity SKIN: No rashes CENTRAL NERVOUS SYSTEM: Confused, lethargic at times, arousable. No focal deficits, tone is normal in all 4 extremities. - Labs CBC & Chem 7: 10/03/21 06:41 10/03/21 06:41 Labs: Abnormal Lab Results - Last 24 Hours (Table) 10/04/21 10/04/21 10/05/21 Range/Units 16:48 20:14 07:30 D-Dimer 2.00 H (<0.60) mg/L FEU POC Glucose (mg/dL) 292 H 291 H (75-99) mg/dL 10/05/21 10/05/21 Range/Units 07:31 11:45 D-Dimer (<0.60) mg/L FEU POC Glucose (mg/dL) 180 H 241 H (75-99) mg/dL Assessment and Plan Assessment: 1 Acute hypoxic respiratory failure related to acute COVID-19 pneumonia, possibility of underlying pneumonia is also considered based on elevated pro- calcitonin level of 4.89. Patient presented to the hospital on 09/23/2021 with 2 weeks of symptoms, he was outside the window for Remdesivir. He is not vaccinated against COVID-19. Not a candidate for Baricitinib, currently on Zosyn. Today on 10/05/2021 patient is on high flow oxygen at 15 L. Chest x-ray continues to show mid and left lower lung infiltrate and air space opacities. 2 Elevated pro-calcitonin level, suggesting possibility of underlying bacterial infection, currently on Zosyn, improving is down to 0.17 3 Acute kidney injury related to dehydration and ATN, improved with IV hydration 4 Diabetes mellitus type 2 5 Underlying history of sleep apnea on CPAP 6 Hypertension 7 Hyperlipidemia 8 Elevated d-dimer, with no evidence of DVT on lower extremity Dopplers 9 Hypernatremia, related to poor oral intake, improved with IV hydration with D5W 10 Pulmonary nodule, measuring 8 mm projecting at the right lower lobe, will need to be followed up on the CT of the chest with contrast 11 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, CT of the brain without contrast on 09/28/2021 showed focal area of low attenuation in the right frontal lobe with abscess of the rush-white matter concerning for rush-white matter junction mass/edema or CVA, neurology is following awaiting MRI of the brain 12 Altered mental status, related to the above, and possibility of subacute right frontal lobe CVA Plan: The patient was seen and evaluated Currently on 15 L high flow nasal cannula Titrate the FiO2 as tolerated Continue bronchodilators Continued on Zosyn Continued on Lovenox, Decadron, vitamin supplements Prognosis is guarded We will continue to follow I, the cosigning physician, performed a history & physical examination of the patient. Lungs sounds are coarse crackles in the bilateral bases. Maintaining good O2 saturations in the 90s on 15 L high flow nasal cannula I discussed the assessment and plan of care with my nurse practitioner, Iraida Jimenez. I attest to the above note as dictated by her.
[2021-10-05 13:37] LABS: Basophils # (A) 0.01 X 10*3/uL (0.00-0.10); Basophils % (A) 0.1 %; Eosinophils # (A) 0.11 X 10*3/uL (0.04-0.35); Eosinophils % (A) 0.9 %; HCT 38.8 % (39.6-50.0); HGB 12.2 g/dL (13.0-17.0); Lymphocytes # (A) 1.96 X 10*3/uL (0.90-5.00); MCH 31.5 pg (27.0-32.0); MCHC 31.4 g/dL (32.0-37.0); MCV 100.3 fL (80.0-97.0); Mean Platelet Volume 9.8 fL (9.5-12.2); Monocytes # (A) 0.86 X 10*3/uL (0.20-1.00); Neutrophils # (A) 9.16 X 10*3/uL (1.80-7.70); Neutrophils % (A) 74.7 %; Platelet Count 290 X 10*3/uL (140-440); RBC 3.87 X 10*6/uL (4.40-5.60); WBC 12.26 X 10*3/uL (4.50-10.00)
[2021-10-05 14:08] LABS: C Reactive Protein 0.5 mg/dL (0.00-0.80)
[2021-10-05] MEDS: SODIUM CHLORIDE 0.9% 1,000 ML IV SCH (14:12)
[2021-10-05 14:22] LABS: African American GFR (CKD) 78.6 (60.0-200.0); Albumin 2.9 g/dL (3.8-4.9); Albumin/Globulin Ratio 1.19 (1.60-3.17); Anion Gap 11.6 mmol/L (10.00-18.00); BUN/Creat Ratio 28.87 Ratio (12.00-20.00); Blood Urea Nitrogen 30.6 mg/dL (9.0-27.0); Calcium 8.4 mg/dL (8.7-10.3); Carbon Dioxide 25.7 mmol/L (20.0-27.5); Globulin 2.4 g/dL (1.6-3.3); Non-African American GFR(CKD) 67.8 (60.0-200.0); Potassium 4.2 mmol/L (3.5-5.5); Total Bilirubin 0.3 mg/dL (0.30-1.20); Total Protein 5.2 g/dL (6.2-8.2)
[2021-10-05 17:22] LABS: Glucose,Whole Blood 231 mg/dL (75-99)
[2021-10-05] MEDS: LATANOPROST 0.005% OPHTH DROPS 2.5 ML BTL BOTH EYES SCH (20:40)
[2021-10-05 21:26] LABS: Glucose,Whole Blood 201 mg/dL (75-99)
--- NOTE | 2021-10-06 01:18 | P.PN ---
Subjective Progress Note Date: 10/02/21 76-year-old male came in with complaints of shortness of breath cough has been going on for about the 2 weeks. Patient is hypoxic present has 6 L of oxygen. Found to have Covid 19 infection" is significant infiltrate on the chest x-ray with elevated liver enzymes elevated to calcitonin 4.89. Patient was also having diarrhea nausea vomiting. is bit dehydrated. Patient was a creatinine is 1.42 diabetes with us and is on metformin at home. 09/25/2021 Patient evaluated today sitting in the chair. He is answering any questions and asked appears very lethargic, oxygen saturation 88% on 8 liters high flow cannula last documented. Upon my assessment patient did appear lethargic and hypoxic did increase his oxygen to 10 L high flow and was able to obtain 93-94% saturation rating. Blood pressure 150/85, respirations 19, heart 87, afebrile. Patient is a history of aphasia which is normal for him. He was able to state that he is feeling okay and denies any shortness of breath. Labs today; sodium 145, potassium 4.2, BUN 31.2, creatinine 1.1, glucose in the 300s, AST 113, AST 63, alk phos 88. Patient continues on albuterol, IV azithromycin, Symbicort, IV Rocephin, dexamethasone, Lovenox, zinc, vitamins. 09/26/2021 Patient is pretty status is bit worse compared to yesterday patient required BiPAP last night and patient is presently on high flow nasal cannula oxygen along with the nonrebreather 09/27/2021 Patient's respiratory status remains the same. Patient is still requiring BiPAP. Patient although feels better subjectively. On [id number]/25/2021 Patient's respiratory status remains the same is requiring a BiPAP on and off and is presently on 15 L high flow nasal cannula oxygen. His speech as per the nursing staff is better. His d-dimer is elevated I'll start him on Lovenox 40 twice a day 09/29/2021 Patient's hyponatremia improved patient also is confused compared to yesterday this is probably because of the steroids, infection, prolonged hospitalization. Pulmonary ordered CT of the head which is being obtain at this time. Patient isn't requirement remains the same. 09/30/2021 Patient is evaluated resting in the bed, he is getting an echocardiogram at the time of my assessment, which is pending at this time. Carotid Doppler shows no evidence for hemodynamically significant stenosis bilateral. Chest x-ray today shows worsening left lower lobe consolidation with minimal infiltrate at the right midlung. Brain CT completed yesterday shows a focal area of low attenuation right frontal lobe was absent rush-white matter differentiation and a nonvascular territory concerning for mass/edema, chronic microvascular ischemic changes and lacunar infarcts most likely chronic findings. Imaging was reviewed by neurology who recommended an MRI with and without contrast to rule out stroke first mass as he felt it was more likely subacute changes suspicious for stroke in the right frontal lobe. Venous Doppler yesterday was negative for bilateral DVT. D-dimer today 3.92, sodium 142, potassium 4.2, BUN 29.8, creatinine 1, blood sugars in the 170s, AST 39, ALT 54, LDH 419, CRP 4.6. Triglycerides elevated at 190, HDL 30. Vitals reviewed today shows a temp of 97.3, heart rate 90s sinus rhythm, blood pressure 130/86, oxygen saturation is 91% on a BiPAP with FiO2 70%. Patient has been unable to quit completely a PT evaluation due to his respiratory status, speech therapy is pending at this time. Continues on IV antibiotics in the form of azithromycin, X, zinc, multivitamins, Decadron, bronchodilators. He is being followed closely by lmonary and neurology services. 10/01/2021 Patient is alert and oriented x3, he is a poor historian however. Difficult to carry on a conversation and complete a review of systems, as he is hard of hearing. He is lying on his right side during examination. Labs today show a white count of 13.62, D-Dimer of 2.55, sodium 138, potassium of 6, which was repeated and is now 4.3, BUN 33, creatinine 0.99, blood sugars 198, magnesium 2.3, AST 87, ALT 67, alk phos 109, total protein 5.9, albumin 2.6. Vitals reviewed; he is afebrile, heart rate 97, blood pressure 152/80, 91% on 10 L HF cannula. He was able to be weaned slightly from a 15 L high flow cannula. MRI of the brain is pending. [id number] Patient is currently in the medical floor. Requiring oxygen 15 L via nasal cannula high flow. Patient is otherwise lying in the bed comfortably. Does have minimal cough. Patient is being continued on dexamethasone and Lovenox and multivitamin supplementation also on Symbicort and Spiriva and albuterol inhalation. CT head showed possible subacute to chronic CVA in the right anterior frontal lobe lesion. Awaiting MRI of the brain. 2D echocardiogram is pending. Laboratory data reviewed. Pulmonary and neurology is on board. Review of systems: Patient is unreliable, he was not answering direct questions, All inpatient medications were reviewed and appropriate changes in these medications as dictated in the interval history and assessment and plan. Objective - Vital Signs Vital signs: Vital Signs Temp 97.7 F 10/02/21 14:00 Pulse 91 10/02/21 14:00 Resp 16 10/02/21 14:00 BP 123/71 10/02/21 14:00 Pulse Ox 94 L 10/02/21 14:00 Intake & Output 10/01/21 10/02/21 10/02/21 18:59 06:59 18:59 Intake Total 472 Output Total 1415 1250 Balance -1415 -1250 472 Intake: Oral 472 Output: Urine 1415 1250 Other: Voiding Method Indwelling Catheter Indwelling Catheter Indwelling Catheter # Voids 2 - Exam PHYSICAL EXAMINATION: GENERAL: The patient is alert and oriented x1, mild respiratory distress. Well developed, well nourished. HEENT: Pupils are round and equally reacting to light. EOMI. No scleral icterus. No conjunctival pallor. Normocephalic, atraumatic. No pharyngeal erythema. No thyromegaly. CARDIOVASCULAR: S1 and S2 present. No murmurs, rubs, or gallops. PULMONARY: Coarse rhonchi bilateral ABDOMEN: Soft, nontender, nondistended, normoactive bowel sounds. No palpable organomegaly. MUSCULOSKELETAL: No joint swelling or deformity. EXTREMITIES: No cyanosis, clubbing, mild peripheral edema NEUROLOGICAL: Gross neurological examination did not reveal any focal deficits. SKIN: No rashes. - Labs CBC & Chem 7: 10/05/21 07:30 10/05/21 07:30 Labs: Abnormal Lab Results - Last 24 Hours (Table) 10/01/21 10/01/21 10/01/21 Range/Units 15:47 15:47 21:27 Glucose (74-99) mg/dL POC Glucose (mg/dL) 422 H (75-99) mg/dL Hemoglobin A1c 7.7 H (4.0-6.0) % Procalcitonin 0.17 H (0.02-0.09) ng/mL 10/01/21 10/01/21 10/02/21 Range/Units 22:48 23:10 06:58 Glucose 168 H (74-99) mg/dL POC Glucose (mg/dL) 220 H 157 H (75-99) mg/dL Hemoglobin A1c (4.0-6.0) % Procalcitonin (0.02-0.09) ng/mL 10/02/21 10/02/21 Range/Units 11:40 16:59 Glucose (74-99) mg/dL POC Glucose (mg/dL) 196 H 351 H (75-99) mg/dL Hemoglobin A1c (4.0-6.0) % Procalcitonin (0.02-0.09) ng/mL Assessment and Plan Assessment: Assessment and plan -Acute hypoxic respiratory failure secondary to COVID 19 pneumonia; Patient doesn't qualify for a Remdesivir. on 15 L hi flow -Acute renal failure possibly secondary to intravascular depletion and dehydration, resolved at this time -Altered Mental status secondary to toxic encephalopathy from Decadron, infection with a competent of her prolonged hospitalization leading to owner s, rule out subacute stroke, neurology consult, MRI pending -possibility of subacute to chronic CVA in the right anterior frontal lobe region -Type 2 diabetes mellitus with hyperglycemia, improving -Hypertension -Hyperlipidemia -transaminitis secondary to Covid 19 infection -Elevated D-Dimer secondary to Covid 19 infection -Elevated inflammatory markers of Covid 19 -Obstructive sleep apnea patient doesn't use any oxygen at home patient quit smoking many years ago DVT prophylaxis: Lovenox Plan MRI pending, Echo pending Continue neuro checks Continue IV antibiotics Continue decadron, zinc, vitamins, lovenox Continue bronchodilators Titrate oxygen as needed Present insulin regimen Continue all other supportive care Prognosis remains guarded for this patient Time with Patient: Greater than 30
--- NOTE | 2021-10-06 01:19 | P.PN ---
Subjective Progress Note Date: 10/03/21 76-year-old male came in with complaints of shortness of breath cough has been going on for about the 2 weeks. Patient is hypoxic present has 6 L of oxygen. Found to have Covid 19 infection" is significant infiltrate on the chest x-ray with elevated liver enzymes elevated to calcitonin 4.89. Patient was also having diarrhea nausea vomiting. is bit dehydrated. Patient was a creatinine is 1.42 diabetes with us and is on metformin at home. 09/25/2021 Patient evaluated today sitting in the chair. He is answering any questions and asked appears very lethargic, oxygen saturation 88% on 8 liters high flow cannula last documented. Upon my assessment patient did appear lethargic and hypoxic did increase his oxygen to 10 L high flow and was able to obtain 93-94% saturation rating. Blood pressure 150/85, respirations 19, heart 87, afebrile. Patient is a history of aphasia which is normal for him. He was able to state that he is feeling okay and denies any shortness of breath. Labs today; sodium 145, potassium 4.2, BUN 31.2, creatinine 1.1, glucose in the 300s, AST 113, AST 63, alk phos 88. Patient continues on albuterol, IV azithromycin, Symbicort, IV Rocephin, dexamethasone, Lovenox, zinc, vitamins. 09/26/2021 Patient is pretty status is bit worse compared to yesterday patient required BiPAP last night and patient is presently on high flow nasal cannula oxygen along with the nonrebreather 09/27/2021 Patient's respiratory status remains the same. Patient is still requiring BiPAP. Patient although feels better subjectively. On [id number]/25/2021 Patient's respiratory status remains the same is requiring a BiPAP on and off and is presently on 15 L high flow nasal cannula oxygen. His speech as per the nursing staff is better. His d-dimer is elevated I'll start him on Lovenox 40 twice a day 09/29/2021 Patient's hyponatremia improved patient also is confused compared to yesterday this is probably because of the steroids, infection, prolonged hospitalization. Pulmonary ordered CT of the head which is being obtain at this time. Patient isn't requirement remains the same. 09/30/2021 Patient is evaluated resting in the bed, he is getting an echocardiogram at the time of my assessment, which is pending at this time. Carotid Doppler shows no evidence for hemodynamically significant stenosis bilateral. Chest x-ray today shows worsening left lower lobe consolidation with minimal infiltrate at the right midlung. Brain CT completed yesterday shows a focal area of low attenuation right frontal lobe was absent rush-white matter differentiation and a nonvascular territory concerning for mass/edema, chronic microvascular ischemic changes and lacunar infarcts most likely chronic findings. Imaging was reviewed by neurology who recommended an MRI with and without contrast to rule out stroke first mass as he felt it was more likely subacute changes suspicious for stroke in the right frontal lobe. Venous Doppler yesterday was negative for bilateral DVT. D-dimer today 3.92, sodium 142, potassium 4.2, BUN 29.8, creatinine 1, blood sugars in the 170s, AST 39, ALT 54, LDH 419, CRP 4.6. Triglycerides elevated at 190, HDL 30. Vitals reviewed today shows a temp of 97.3, heart rate 90s sinus rhythm, blood pressure 130/86, oxygen saturation is 91% on a BiPAP with FiO2 70%. Patient has been unable to quit completely a PT evaluation due to his respiratory status, speech therapy is pending at this time. Continues on IV antibiotics in the form of azithromycin, X, zinc, multivitamins, Decadron, bronchodilators. He is being followed closely by lmonary and neurology services. 10/01/2021 Patient is alert and oriented x3, he is a poor historian however. Difficult to carry on a conversation and complete a review of systems, as he is hard of hearing. He is lying on his right side during examination. Labs today show a white count of 13.62, D-Dimer of 2.55, sodium 138, potassium of 6, which was repeated and is now 4.3, BUN 33, creatinine 0.99, blood sugars 198, magnesium 2.3, AST 87, ALT 67, alk phos 109, total protein 5.9, albumin 2.6. Vitals reviewed; he is afebrile, heart rate 97, blood pressure 152/80, 91% on 10 L HF cannula. He was able to be weaned slightly from a 15 L high flow cannula. MRI of the brain is pending. [id number] Patient is currently in the medical floor. Requiring oxygen 15 L via nasal cannula high flow. Patient is otherwise lying in the bed comfortably. Does have minimal cough. Patient is being continued on dexamethasone and Lovenox and multivitamin supplementation also on Symbicort and Spiriva and albuterol inhalation. CT head showed possible subacute to chronic CVA in the right anterior frontal lobe lesion. Awaiting MRI of the brain. 2D echocardiogram is pending. Laboratory data reviewed. Pulmonary and neurology is on board. 10/03/2021 patient is currently awake alert. Requiring oxygen 15 L high flow oxygen via nasal cannula. Patient is being current dexamethasone and Lovenox and multivitamin supplementation. Patient is also on antibiotic in the form of Zosyn. Currently afebrile. Laboratory data showed WBC 12.9 hemoglobin 12.9 platelets 319 BUN 23 and creatinine 1.0 LDAs 323 and CRP 1.5. MRI is pending to rule out subacute/acute CVA. Neurology and pulmonary is on board. Review of systems: Patient is unreliable, he was not answering direct questions, All inpatient medications were reviewed and appropriate changes in these medications as dictated in the interval history and assessment and plan. Objective - Vital Signs Vital signs: Vital Signs Temp 98 F 10/03/21 18:00 Pulse 99 10/03/21 18:00 Resp 16 10/03/21 18:00 BP 137/81 10/03/21 18:00 Pulse Ox 94 L 10/03/21 18:00 Intake & Output 10/03/21 10/03/21 10/04/21 06:59 18:59 06:59 Intake Total 708 Output Total 1500 1200 Balance -1500 -492 Intake: Oral 708 Output: Urine 1500 1200 Other: Voiding Method Indwelling Catheter Indwelling Catheter - Exam PHYSICAL EXAMINATION: GENERAL: The patient is alert and oriented x1, mild respiratory distress. Well developed, well nourished. HEENT: Pupils are round and equally reacting to light. EOMI. No scleral icterus. No conjunctival pallor. Normocephalic, atraumatic. No pharyngeal erythema. No thyromegaly. CARDIOVASCULAR: S1 and S2 present. No murmurs, rubs, or gallops. PULMONARY: Coarse rhonchi bilateral ABDOMEN: Soft, nontender, nondistended, normoactive bowel sounds. No palpable organomegaly. MUSCULOSKELETAL: No joint swelling or deformity. EXTREMITIES: No cyanosis, clubbing, mild peripheral edema NEUROLOGICAL: Gross neurological examination did not reveal any focal deficits. SKIN: No rashes. - Labs CBC & Chem 7: 10/05/21 07:30 10/05/21 07:30 Labs: Abnormal Lab Results - Last 24 Hours (Table) 10/03/21 10/03/21 10/03/21 Range/Units 06:41 06:41 07:01 WBC 12.93 H (4.50-10.00) X 10*3/uL RBC 4.09 L (4.40-5.60) X 10*6/uL Hgb 12.9 L (13.0-17.0) g/dL MCV 98.3 H (80.0-97.0) fL Immature Gran # 0.19 H (0.00-0.04) X 10*3/uL Neutrophils # 10.42 H (1.80-7.70) X 10*3/uL Eosinophils # 0.01 L (0.04-0.35) X 10*3/uL BUN/Creatinine Ratio 23.54 H (12.00-20.00) Ratio Glucose 175 H (70-110) mg/dL POC Glucose (mg/dL) 232 H (75-99) mg/dL Calcium 8.5 L (8.7-10.3) mg/dL Lactate Dehydrogenase 323 H (120-246) U/L C-Reactive Protein 1.50 H (0.00-0.80) mg/dL 10/03/21 10/03/21 10/03/21 Range/Units 11:38 16:31 20:40 WBC (4.50-10.00) X 10*3/uL RBC (4.40-5.60) X 10*6/uL Hgb (13.0-17.0) g/dL MCV (80.0-97.0) fL Immature Gran # (0.00-0.04) X 10*3/uL Neutrophils # (1.80-7.70) X 10*3/uL Eosinophils # (0.04-0.35) X 10*3/uL BUN/Creatinine Ratio (12.00-20.00) Ratio Glucose (70-110) mg/dL POC Glucose (mg/dL) 149 H 265 H 277 H (75-99) mg/dL Calcium (8.7-10.3) mg/dL Lactate Dehydrogenase (120-246) U/L C-Reactive Protein (0.00-0.80) mg/dL Assessment and Plan Assessment: Assessment and plan -Acute hypoxic respiratory failure secondary to COVID 19 pneumonia; Patient doesn't qualify for a Remdesivir. on 15 L hi flow -Acute renal failure possibly secondary to intravascular depletion and dehydra tion, resolved at this time -Altered Mental status secondary to toxic encephalopathy from Decadron, infection with a competent of her prolonged hospitalization leading to sundowners, rule out subacute stroke, neurology consult, MRI pending -possibility of subacute to chronic CVA in the right anterior frontal lobe region -Type 2 diabetes mellitus with hyperglycemia, improving -Hypertension -Hyperlipidemia -transaminitis secondary to Covid 19 infection -Elevated D-Dimer secondary to Covid 19 infection -Elevated inflammatory markers of Covid 19 -Obstructive sleep apnea patient doesn't use any oxygen at home patient quit smoking many years ago DVT prophylaxis: Lovenox Plan MRI pending, Echo pending Continue neuro checks Continue IV antibiotics Continue decadron, zinc, vitamins, lovenox Continue bronchodilators Titrate oxygen as needed Present insulin regimen Continue all other supportive care Prognosis remains guarded for this patient
--- NOTE | 2021-10-06 01:21 | P.PN ---
Subjective Progress Note Date: 10/04/21 76-year-old male came in with complaints of shortness of breath cough has been going on for about the 2 weeks. Patient is hypoxic present has 6 L of oxygen. Found to have Covid 19 infection" is significant infiltrate on the chest x-ray with elevated liver enzymes elevated to calcitonin 4.89. Patient was also having diarrhea nausea vomiting. is bit dehydrated. Patient was a creatinine is 1.42 diabetes with us and is on metformin at home. 09/25/2021 Patient evaluated today sitting in the chair. He is answering any questions and asked appears very lethargic, oxygen saturation 88% on 8 liters high flow cannula last documented. Upon my assessment patient did appear lethargic and hypoxic did increase his oxygen to 10 L high flow and was able to obtain 93-94% saturation rating. Blood pressure 150/85, respirations 19, heart 87, afebrile. Patient is a history of aphasia which is normal for him. He was able to state that he is feeling okay and denies any shortness of breath. Labs today; sodium 145, potassium 4.2, BUN 31.2, creatinine 1.1, glucose in the 300s, AST 113, AST 63, alk phos 88. Patient continues on albuterol, IV azithromycin, Symbicort, IV Rocephin, dexamethasone, Lovenox, zinc, vitamins. 09/26/2021 Patient is pretty status is bit worse compared to yesterday patient required BiPAP last night and patient is presently on high flow nasal cannula oxygen along with the nonrebreather 09/27/2021 Patient's respiratory status remains the same. Patient is still requiring BiPAP. Patient although feels better subjectively. On /25/2021 Patient's respiratory status remains the same is requiring a BiPAP on and off and is presently on 15 L high flow nasal cannula oxygen. His speech as per the nursing staff is better. His d-dimer is elevated I'll start him on Lovenox 40 twice a day 09/29/2021 Patient's hyponatremia improved patient also is confused compared to yesterday this is probably because of the steroids, infection, prolonged hospitalization. Pulmonary ordered CT of the head which is being obtain at this time. Patient isn't requirement remains the same. 09/30/2021 Patient is evaluated resting in the bed, he is getting an echocardiogram at the time of my assessment, which is pending at this time. Carotid Doppler shows no evidence for hemodynamically significant stenosis bilateral. Chest x-ray today shows worsening left lower lobe consolidation with minimal infiltrate at the right midlung. Brain CT completed yesterday shows a focal area of low attenuation right frontal lobe was absent rush-white matter differentiation and a nonvascular territory concerning for mass/edema, chronic microvascular ischemic changes and lacunar infarcts most likely chronic findings. Imaging was reviewed by neurology who recommended an MRI with and without contrast to rule out stroke first mass as he felt it was more likely subacute changes suspicious for stroke in the right frontal lobe. Venous Doppler yesterday was negative for bilateral DVT. D-dimer today 3.92, sodium 142, potassium 4.2, BUN 29.8, creatinine 1, blood sugars in the 170s, AST 39, ALT 54, LDH 419, CRP 4.6. Triglycerides elevated at 190, HDL 30. Vitals reviewed today shows a temp of 97.3, heart rate 90s sinus rhythm, blood pressure 130/86, oxygen saturation is 91% on a BiPAP with FiO2 70%. Patient has been unable to quit completely a PT evaluation due to his respiratory status, speech therapy is pending at this time. Continues on IV antibiotics in the form of azithromycin, X, zinc, multivitamins, Decadron, bronchodilators. He is being followed closely by lmonary and neurology services. 10/01/2021 Patient is alert and oriented x3, he is a poor historian however. Difficult to carry on a conversation and complete a review of systems, as he is hard of hearing. He is lying on his right side during examination. Labs today show a white count of 13.62, D-Dimer of 2.55, sodium 138, potassium of 6, which was repeated and is now 4.3, BUN 33, creatinine 0.99, blood sugars 198, magnesium 2.3, AST 87, ALT 67, alk phos 109, total protein 5.9, albumin 2.6. Vitals reviewed; he is afebrile, heart rate 97, blood pressure 152/80, 91% on 10 L HF cannula. He was able to be weaned slightly from a 15 L high flow cannula. MRI of the brain is pending. [id number] Patient is currently in the medical floor. Requiring oxygen 15 L via nasal cannula high flow. Patient is otherwise lying in the bed comfortably. Does have minimal cough. Patient is being continued on dexamethasone and Lovenox and multivitamin supplementation also on Symbicort and Spiriva and albuterol inhalation. CT head showed possible subacute to chronic CVA in the right anterior frontal lobe lesion. Awaiting MRI of the brain. 2D echocardiogram is pending. Laboratory data reviewed. Pulmonary and neurology is on board. 10/03/2021 patient is currently awake alert. Requiring oxygen 15 L high flow oxygen via nasal cannula. Patient is being current dexamethasone and Lovenox and multivitamin supplementation. Patient is also on antibiotic in the form of Zosyn. Currently afebrile. Laboratory data showed WBC 12.9 hemoglobin 12.9 platelets 319 BUN 23 and creatinine 1.0 LDAs 323 and CRP 1.5. MRI is pending to rule out subacute/acute CVA. Neurology and pulmonary is on board. 10/04/2021 patient is awake alert and able to communicate. 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 Resting in the bed comfortably. Requiring oxygen at 15 L via nasal cannula. She'll be continued on dexamethasone Lovenox and multivitamins mentation and remains on Zosyn. Patient has been afebrile. Tolerating oral diet. No cough or sputum production. No nausea vomiting abdominal pain or diarrhea.. Laboratory data reviewed. Review of systems: Patient is unreliable, he was not answering direct questions, All inpatient medications were reviewed and appropriate changes in these medications as dictated in the interval history and assessment and plan. Objective - Vital Signs Vital signs: Vital Signs Temp 98.1 F 10/04/21 20:00 Pulse 98 10/04/21 20:00 Resp 18 10/04/21 20:00 BP 103/67 10/04/21 20:00 Pulse Ox 93 L 10/04/21 20:00 Intake & Output 10/04/21 10/04/21 10/05/21 06:59 18:59 06:59 Output Total 550 600 Balance -550 -600 Weight 108.862 kg Output: Urine 550 600 Other: Voiding Method Indwelling Catheter Indwelling Catheter - Exam PHYSICAL EXAMINATION: GENERAL: The patient is alert and oriented x1, mild respiratory distress. Well developed, well nourished. HEENT: Pupils are round and equally reacting to light. EOMI. No scleral icterus. No conjunctival pallor. Normocephalic, atraumatic. No pharyngeal erythema. No thyromegaly. CARDIOVASCULAR: S1 and S2 present. No murmurs, rubs, or gallops. PULMONARY: Coarse rhonchi bilateral ABDOMEN: Soft, nontender, nondistended, normoactive bowel sounds. No palpable organomegaly. MUSCULOSKELETAL: No joint swelling or deformity. EXTREMITIES: No cyanosis, clubbing, mild peripheral edema NEUROLOGICAL: Gross neurological examination did not reveal any focal deficits. SKIN: No rashes. - Labs CBC & Chem 7: 10/05/21 07:30 10/05/21 07:30 Labs: Abnormal Lab Results - Last 24 Hours (Table) 10/04/21 10/04/21 10/04/21 Range/Units 07:17 11:18 16:48 POC Glucose (mg/dL) 177 H 189 H 292 H (75-99) mg/dL 10/04/21 Range/Units 20:14 POC Glucose (mg/dL) 291 H (75-99) mg/dL Assessment and Plan Assessment: Assessment and plan -Acute hypoxic respiratory failure secondary to COVID 19 pneumonia; Patient doesn't qualify for a Remdesivir. on 15 L hi flow -Acute renal failure possibly secondary to intravascular depletion and dehydration, resolved at this time -Altered Mental status secondary to toxic encephalopathy from Decadron, infection with a competent of her prolonged hospitalization leading to , rule out subacute stroke, neurology consult, MRI pending -possibility of subacute to chronic CVA in the right anterior frontal lobe region -Type 2 diabetes mellitus with hyperglycemia, improving -Hypertension -Hyperlipidemia -transaminitis secondary to Covid 19 infection -Elevated D-Dimer secondary to Covid 19 infection -Elevated inflammatory markers of Covid 19 -Obstructive sleep apnea patient doesn't use any oxygen at home patient quit smoking many years ago DVT prophylaxis: Lovenox Plan MRI pending, Echo pending Continue neuro checks Continue IV antibiotics Continue decadron, zinc, vitamins, lovenox Continue bronchodilators Titrate oxygen as needed Present insulin regimen Continue all other supportive care Prognosis remains guarded for this patient
--- NOTE | 2021-10-06 01:23 | P.PN ---
Subjective Progress Note Date: 10/05/21 76-year-old male came in with complaints of shortness of breath cough has been going on for about the 2 weeks. Patient is hypoxic present has 6 L of oxygen. Found to have Covid 19 infection" is significant infiltrate on the chest x-ray with elevated liver enzymes elevated to calcitonin 4.89. Patient was also having diarrhea nausea vomiting. is bit dehydrated. Patient was a creatinine is 1.42 diabetes with us and is on metformin at home. 09/25/2021 Patient evaluated today sitting in the chair. He is answering any questions and asked appears very lethargic, oxygen saturation 88% on 8 liters high flow cannula last documented. Upon my assessment patient did appear lethargic and hypoxic did increase his oxygen to 10 L high flow and was able to obtain 93-94% saturation rating. Blood pressure 150/85, respirations 19, heart 87, afebrile. Patient is a history of aphasia which is normal for him. He was able to state that he is feeling okay and denies any shortness of breath. Labs today; sodium 145, potassium 4.2, BUN 31.2, creatinine 1.1, glucose in the 300s, AST 113, AST 63, alk phos 88. Patient continues on albuterol, IV azithromycin, Symbicort, IV Rocephin, dexamethasone, Lovenox, zinc, vitamins. 09/26/2021 Patient is pretty status is bit worse compared to yesterday patient required BiPAP last night and patient is presently on high flow nasal cannula oxygen along with the nonrebreather 09/27/2021 Patient's respiratory status remains the same. Patient is still requiring BiPAP. Patient although feels better subjectively. On lelrzssmgre41/25/2021 Patient's respiratory status remains the same is requiring a BiPAP on and off and is presently on 15 L high flow nasal cannula oxygen. His speech as per the nursing staff is better. His d-dimer is elevated I'll start him on Lovenox 40 twice a day 09/29/2021 Patient's hyponatremia improved patient also is confused compared to yesterday this is probably because of the steroids, infection, prolonged hospitalization. Pulmonary ordered CT of the head which is being obtain at this time. Patient isn't requirement remains the same. 09/30/2021 Patient is evaluated resting in the bed, he is getting an echocardiogram at the time of my assessment, which is pending at this time. Carotid Doppler shows no evidence for hemodynamically significant stenosis bilateral. Chest x-ray today shows worsening left lower lobe consolidation with minimal infiltrate at the right midlung. Brain CT completed yesterday shows a focal area of low attenuation right frontal lobe was absent rush-white matter differentiation and a nonvascular territory concerning for mass/edema, chronic microvascular ischemic changes and lacunar infarcts most likely chronic findings. Imaging was reviewed by neurology who recommended an MRI with and without contrast to rule out stroke first mass as he felt it was more likely subacute changes suspicious for stroke in the right frontal lobe. Venous Doppler yesterday was negative for bilateral DVT. D-dimer today 3.92, sodium 142, potassium 4.2, BUN 29.8, creatinine 1, blood sugars in the 170s, AST 39, ALT 54, LDH 419, CRP 4.6. Triglycerides elevated at 190, HDL 30. Vitals reviewed today shows a temp of 97.3, heart rate 90s sinus rhythm, blood pressure 130/86, oxygen saturation is 91% on a BiPAP with FiO2 70%. Patient has been unable to quit completely a PT evaluation due to his respiratory status, speech therapy is pending at this time. Continues on IV antibiotics in the form of azithromycin, X, zinc, multivitamins, Decadron, bronchodilators. He is being followed closely by lmonary and neurology services. 10/01/2021 Patient is alert and oriented x3, he is a poor historian however. Difficult to carry on a conversation and complete a review of systems, as he is hard of hearing. He is lying on his right side during examination. Labs today show a white count of 13.62, D-Dimer of 2.55, sodium 138, potassium of 6, which was repeated and is now 4.3, BUN 33, creatinine 0.99, blood sugars 198, magnesium 2.3, AST 87, ALT 67, alk phos 109, total protein 5.9, albumin 2.6. Vitals reviewed; he is afebrile, heart rate 97, blood pressure 152/80, 91% on 10 L HF cannula. He was able to be weaned slightly from a 15 L high flow cannula. MRI of the brain is pending. [id number] Patient is currently in the medical floor. Requiring oxygen 15 L via nasal cannula high flow. Patient is otherwise lying in the bed comfortably. Does have minimal cough. Patient is being continued on dexamethasone and Lovenox and multivitamin supplementation also on Symbicort and Spiriva and albuterol inhalation. CT head showed possible subacute to chronic CVA in the right anterior frontal lobe lesion. Awaiting MRI of the brain. 2D echocardiogram is pending. Laboratory data reviewed. Pulmonary and neurology is on board. 10/03/2021 patient is currently awake alert. Requiring oxygen 15 L high flow oxygen via nasal cannula. Patient is being current dexamethasone and Lovenox and multivitamin supplementation. Patient is also on antibiotic in the form of Zosyn. Currently afebrile. Laboratory data showed WBC 12.9 hemoglobin 12.9 platelets 319 BUN 23 and creatinine 1.0 LDAs 323 and CRP 1.5. MRI is pending to rule out subacute/acute CVA. Neurology and pulmonary is on board. 10/04/2021 patient is awake alert and able to communicate. 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 Resting in the bed comfortably. Requiring oxygen at 15 L via nasal cannula. She'll be continued on dexamethasone Lovenox and multivitamins mentation and remains on Zosyn. Patient has been afebrile. Tolerating oral diet. No cough or sputum production. No nausea vomiting abdominal pain or diarrhea.. Laboratory data reviewed. 10/05/2021 patient is currently resting in the bed. Awake alert and oriented x3. Still requiring oxygen 15 L high flow. Chest x-ray showed similar left lung base and midlung airspace opacities. No evidence of pneumothorax. Patient is on dexamethasone and Lovenox and multivitamins. Patient is being current on Zosyn. Day 5. Patient is tolerating oral diet. D5 water has been discontinued and patient declines KVO. Encourage oral intake. Continue with insulin sliding scale for better blood sugar control. Continued on duo nebs and Symbicort. Neurology and pulmonary is on board. Review of systems: Patient is unreliable, he was not answering direct questions, All inpatient medications were reviewed and appropriate changes in these medications as dictated in the interval history and assessment and plan. Objective - Vital Signs Vital signs: Vital Signs Temp 97.3 F L 10/05/21 14:00 Pulse 89 10/05/21 14:00 Resp 18 10/05/21 14:00 BP 123/73 01/01/22 14:00 Pulse Ox 92 L 10/05/21 14:00 Intake & Output 10/05/21 10/05/21 10/06/21 06:59 18:59 06:59 Intake Total 740 Output Total 1725 Balance -985 Intake: IV 740 Dextrose 5% in Water 1, 600 000 ml @ 100 mls/hr IV . Q10H [facility] Rx#:[id number] Piperacillin-Tazobactam 3 100 .375 gm In Sodium Chloride 0.9% 100 ml @ 25 mls/hr IVPB Q8HR [facility] Rx# :[id number] Sodium Chloride 0.9% 1, 40 000 ml @ 20 mls/hr IV . Q24H [facility] Rx#:[id number] Output: Urine 1725 Other: Voiding Method Indwelling Catheter Indwelling Catheter Indwelling Catheter # Voids 700 - Exam PHYSICAL EXAMINATION: GENERAL: The patient is alert and oriented x1, mild respiratory distress. Well developed, well nourished. HEENT: Pupils are round and equally reacting to light. EOMI. No scleral icterus. No conjunctival pallor. Normocephalic, atraumatic. No pharyngeal erythema. No thyromegaly. CARDIOVASCULAR: S1 and S2 present. No murmurs, rubs, or gallops. PULMONARY: Coarse rhonchi bilateral ABDOMEN: Soft, nontender, nondistended, normoactive bowel sounds. No palpable organomegaly. MUSCULOSKELETAL: No joint swelling or deformity. EXTREMITIES: No cyanosis, clubbing, mild peripheral edema NEUROLOGICAL: Gross neurological examination did not reveal any focal deficits. SKIN: No rashes. - Labs CBC & Chem 7: 10/05/21 07:30 10/05/21 07:30 Labs: Abnormal Lab Results - Last 24 Hours (Table) 10/05/21 10/05/21 10/05/21 Range/Units 07:30 07:30 07:30 WBC 12.26 H (4.50-10.00) X 10*3/uL RBC 3.87 L (4.40-5.60) X 10*6/uL Hgb 12.2 L (13.0-17.0) g/dL Hct 38.8 L (39.6-50.0) % MCV 100.3 H (80.0-97.0) fL MCHC 31.4 L (32.0-37.0) g/dL Immature Gran # 0.16 H (0.00-0.04) X 10*3/uL Neutrophils # 9.16 H (1.80-7.70) X 10*3/uL D-Dimer 2.00 H (<0.60) mg/L FEU BUN 30.6 H (9.0-27.0) mg/dL BUN/Creatinine Ratio 28.87 H (12.00-20.00) Ratio Glucose 157 H (70-110) mg/dL POC Glucose (mg/dL) (75-99) mg/dL Calcium 8.4 L (8.7-10.3) mg/dL AST 39 H (14-35) U/L ALT 113 H (10-49) U/L Lactate Dehydrogenase 273 H (120-246) U/L Total Protein 5.2 L (6.2-8.2) g/dL Albumin 2.9 L (3.8-4.9) g/dL Albumin/Globulin Ratio 1.19 L (1.60-3.17) g/dL 10/05/21 10/05/21 10/05/21 Range/Units 07:31 11:45 17:21 WBC (4.50-10.00) X 10*3/uL RBC (4.40-5.60) X 10*6/uL Hgb (13.0-17.0) g/dL Hct (39.6-50.0) % MCV (80.0-97.0) fL MCHC (32.0-37.0) g/dL Immature Gran # (0.00-0.04) X 10*3/uL Neutrophils # (1.80-7.70) X 10*3/uL D-Dimer (<0.60) mg/L FEU BUN (9.0-27.0) mg/dL BUN/Creatinine Ratio (12.00-20.00) Ratio Glucose (70-110) mg/dL POC Glucose (mg/dL) 180 H 241 H 231 H (75-99) mg/dL Calcium (8.7-10.3) mg/dL AST (14-35) U/L ALT (10-49) U/L Lactate Dehydrogenase (120-246) U/L Total Protein (6.2-8.2) g/dL Albumin (3.8-4.9) g/dL Albumin/Globulin Ratio (1.60-3.17) g/dL 10/05/21 Range/Units 21:16 WBC (4.50-10.00) X 10*3/uL RBC (4.40-5.60) X 10*6/uL Hgb (13.0-17.0) g/dL Hct (39.6-50.0) % MCV (80.0-97.0) fL MCHC (32.0-37.0) g/dL Immature Gran # (0.00-0.04) X 10*3/uL Neutrophils # (1.80-7.70) X 10*3/uL D-Dimer (<0.60) mg/L FEU BUN (9.0-27.0) mg/dL BUN/Creatinine Ratio (12.00-20.00) Ratio Glucose (70-110) mg/dL POC Glucose (mg/dL) 201 H (75-99) mg/dL Calcium (8.7-10.3) mg/dL AST (14-35) U/L ALT (10-49) U/L Lactate Dehydrogenase (120-246) U/L Total Protein (6.2-8.2) g/dL Albumin (3.8-4.9) g/dL Albumin/Globulin Ratio (1.60-3.17) g/dL Assessment and Plan Assessment: Assessment and plan -Acute hypoxic respiratory failure secondary to COVID 19 pneumonia; Patient doesn't qualify for a Remdesivir. on 15 L hi flow -Acute renal failure possibly secondary to intravascular depletion and dehydration, resolved at this time -Altered Mental status secondary to toxic encephalopathy from Decadron, infection with a competent of her prolonged hospitalization leading to sundowners, rule out subacute stroke, neurology consult, MRI pending -possibility of subacute to chronic CVA in the right anterior frontal lobe region -Type 2 diabetes mellitus with hyperglycemia, improving -Hypertension -Hyperlipidemia -transaminitis secondary to Covid 19 infection -Elevated D-Dimer secondary to Covid 19 infection -Elevated inflammatory markers of Covid 19 -Obstructive sleep apnea patient doesn't use any oxygen at home patient quit smoking many years ago DVT prophylaxis: Lovenox Plan MRI pending, Echo pending Continue neuro checks Continue IV antibiotics Continue decadron, zinc, vitamins, lovenox Continue bronchodilators Titrate oxygen as needed Present insulin regimen Continue all other supportive care Prognosis remains guarded for this patient Time with Patient: Greater than 30
[2021-10-06 07:46] LABS: Glucose,Whole Blood 140 mg/dL (75-99)
[2021-10-06] MEDS: ALBUTEROL HFA INHALER INHALATION SCH ×4 (08:43→22:11)
[2021-10-06] MEDS: SYMBICORT 80-4.5 MCG INHALER INHALATION SCH ×2 (08:43→22:11)
[2021-10-06] MEDS: TIOTROPIUM 2.5 MCG INHALER INHALATION SCH (08:43)
[2021-10-06] MEDS: DEXAMETHASONE SOD PHOSPHATE 10 MG/ML 1 ML VIAL IVP SCH (09:13)
[2021-10-06] MEDS: TAMSULOSIN 0.4 MG CAP.ER.24H PO SCH (09:13)
[2021-10-06] MEDS: ZINC SULFATE 220 MG CAP PO SCH (09:14)
[2021-10-06] MEDS: ASPIRIN 325 MG TAB PO SCH (09:14)
[2021-10-06] MEDS: CHOLECALCIFEROL 125 MCG (5000 IU) TABLET PO SCH (09:14)
[2021-10-06] MEDS: amLODIPine 5 MG TAB PO SCH (09:14)
[2021-10-06] MEDS: carvediloL 12.5 MG TAB PO SCH ×2 (09:14→17:55)
[2021-10-06] MEDS: PIPERACILLIN-TAZOBACTAM 3.375 GM in SODIUM CHLORIDE 0.9% 100 ML IVPB SCH ×5 (09:14→23:41)
[2021-10-06] MEDS: ASCORBIC ACID 500 MG TAB PO SCH (09:14)
[2021-10-06] MEDS: INSULIN ASPART (NovoLOG) 100 UNIT/ML VIAL SQ SCH ×7 (09:14→23:41)
[2021-10-06] MEDS: GABAPENTIN 300 MG CAP PO SCH ×3 (09:14→23:30)
[2021-10-06] MEDS: ENOXAPARIN 40 MG/0.4 ML SYRINGE SQ SCH ×2 (09:15→23:29)
[2021-10-06] MEDS: LIDOCAINE 5% PATCH TOPICAL SCH (09:15)
[2021-10-06 10:39] LABS: Basophils # (A) 0.03 X 10*3/uL (0.00-0.10); Basophils % (A) 0.3 %; Eosinophils # (A) 0.04 X 10*3/uL (0.04-0.35); Eosinophils % (A) 0.4 %; HCT 39.9 % (39.6-50.0); HGB 12.2 g/dL (13.0-17.0); Lymphocytes # (A) 1.57 X 10*3/uL (0.90-5.00); Lymphocytes % (A) 14.2 %; MCH 30.7 pg (27.0-32.0); MCHC 30.6 g/dL (32.0-37.0); MCV 100.3 fL (80.0-97.0); Mean Platelet Volume 9.7 fL (9.5-12.2); Monocytes # (A) 0.85 X 10*3/uL (0.20-1.00); Monocytes % (A) 7.7 %; Neutrophils # (A) 8.44 X 10*3/uL (1.80-7.70); Neutrophils % (A) 76.4 %; Platelet Count 278 X 10*3/uL (140-440); RBC 3.98 X 10*6/uL (4.40-5.60); RDW 13.7 % (11.5-14.5); WBC 11.04 X 10*3/uL (4.50-10.00)
[2021-10-06 11:30] LABS: Glucose,Whole Blood 245 mg/dL (75-99)
[2021-10-06 11:34] LABS: African American GFR (CKD) 74.4 (60.0-200.0); Anion Gap 11.2 mmol/L (10.00-18.00); BUN/Creat Ratio 29.82 Ratio (12.00-20.00); Blood Urea Nitrogen 33.1 mg/dL (9.0-27.0); C Reactive Protein 0.3 mg/dL (0.00-0.80); Calcium 8.5 mg/dL (8.7-10.3); Carbon Dioxide 25.5 mmol/L (20.0-27.5); Non-African American GFR(CKD) 64.2 (60.0-200.0); Potassium 4.3 mmol/L (3.5-5.5)
[2021-10-06] MEDS: FLUCONAZOLE 100 MG TAB PO SCH (12:42)
--- NOTE | 2021-10-06 14:17 | P.PN ---
Subjective Progress Note Date: 10/06/21 This is a 76-year-old male patient who follows with the [facility] system as his primary care provider. He has a history of chronic obstructive pulmonary disease, hypertension, hyperlipidemia, diabetes mellitus, obstructive sleep apnea maintained on CPAP at a pressure of 11 cm of water with C-Flex of 3. He has a 2 week history of increasing shortness of breath, cough and congestion. He presented here to the emergency room yesterday for the same. X-ray reveals bilateral patchy infiltrates left greater than right consistent with COVID-19 pneumonia. White count 8.2. Hemoglobin 12.0. D-dimer 2.07. Sodium 140. Potassium 4.0. Creatinine 1.4. AST 85. ALT 50. LDH 1625. C-reactive protein 38.4. Pro-calcitonin 4.89. [place] virus by PCR positive. He's been initiated on Decadron, vitamin supplements. If he did receive Lovenox 100 mg subcu once yesterday. Normal saline at 75 ML's per hour. He is seen today in consultation in the emergency department. He is currently sitting up awake and alert. Somewhat slow to respond. Somewhat of a poor historian. His daughter is present in the room in supplies most of the information. Is currently maintaining O2 saturations in the low 90s on 6 L high flow nasal cannula. He's been afebrile. Slightly tachycardic. Hypertensive. On 09/25/2021 patient seen in follow-up on medical surgical floor, he is a poor historian, he is currently sitting up in the recliner, he is currently on 8 L of oxygen and his oxygen demand has increased compared to yesterday when he was on 6 L per high flow nasal cannula. Pulse ox is currently 88-89%, he is afebrile, remains hypertensive with blood pressure in the 180s over 107, with a mean of 133 bpm. D-dimer came back elevated at 2.07, lower extremity Dopplers showed no evidence of DVTs in both. His been afebrile, does have a congestive cough, overall his mentation is confused and sleepy. He is currently on the Decadron 6 mg daily, he is on inhaled bronchodilators. Cough is congested, patient does have underlying history of COPD, we will add empiric antibiotics today. We'll obtain follow up pro-calcitonin level. Initial pro-calcitonin level on admission was elevated to 4.89. On 09/26/2021 patient seen in follow-up medical surgical floor. He is confused, but his responsive, he denies any acute distress. He was taken off the BiPAP support this morning, he is currently on 15 L high flow oxygen, and his pulse ox is 89-91%, he removes his oxygen at times, desaturates, becomes more confused. Low-grade fevers in the last 24 hours with a temp of 99.5F. Lung sounds reveal diffuse coarse inspiratory crackles throughout the lung baxter. No complaints of chest pain, occasional cough, no phlegm production. His chest x-ray today shows stable bibasilar and left peripheral COVID infiltrates, and 8 mm nodular density at the right lower lung with a recommendation of follow-up CT scanning of the chest to exclude underlying pulmonary nodule. Patient continues on Rocephin and azithromycin for empiric antibiotic coverage, he is on Decadron 6 mg daily, he is on prophylactic dose of Lovenox. Today's labs have been reviewed, his white blood cell count 8.12, hemoglobin is 12.4, serum sodium is 147, potassium is 4.0, chloride is 111, B1 is 32, creatinine is 1.2, ferritin level is improving and is down to 1227, LDH is down to 477, improved and CRP is also improving and is down to 7.8, follow up pro-calcitonin was improved and was down to 1.53. On 09/27/2021 patient seen in follow-up on medical surgical floor. He is currently sleeping, he is on BiPAP support, which he looks very comfortable on, breathing comfortably, BiPAP settings of 12 and 6 and FiO2 of 70%, his pulse ox is Usually better on BiPAP at 95%. On 15 L per high flow nasal cannula his pulse ox is 186%, afebrile, hemodynamically stable, still confused, not agitated. His last chest x-ray from 09/25/2001 showed stable bibasilar and left peripheral COVID infiltrates. Patient was also suspected to have bacteria superinfection, he was placed on azithromycin and Rocephin, his pro-calcitonin was improving, and is down to 0.73 on today's labs from the original value of 4.89 on 09/23/2021. White count is 8.4, hemoglobin is 0.8, his d-dimer is 3.19, sodium is 146, patient remains on D5W at 50 ML per hour, potassium 3.6, B1 is 29, creatinine is 1.His LDH is slightly improved and is down to 1164, CRP is 12. 1, improved since admission. Appears to be in no acute distress. Appetite is poor, he is only consuming about 25% of his meals. The patient is seen today 09/28/2021 in follow-up on the regular medical floor. He is currently resting comfortably in bed. Arousable, drifts off easily, in no acute distress. He is currently on 15 L high flow nasal cannula. He has been utilizing the BiPAP as well with settings of 12/6 and 70% FiO2. He has normal saline running at 50 MLS per hour. D-dimer 6.07. Sodium 144. Potassium 3.8. Creatinine 1.0. LDH 413. C-reactive protein 8.6. Blood glucose 161. He remains on Lovenox 40 mg twice a day, Decadron, bronchodilators, vitamin supplements. He is on antibiotics in the form of ceftriaxone and azithromycin. The patient is seen today 10/02/2021 in follow-up on the regular medical floor. He has been slow to progress. He is still requiring 15 L high flow nasal cannula to maintain O2 saturations in the 90s. He has not worn BiPAP. He continues with a loose nonproductive cough. He is continued on Symbicort, Spiriva, albuterol, Decadron, Lovenox, vitamin supplements. Remains on D5W at 100 ML's per hour. Computed tomography scan of the head revealed possibility of subacute to chronic CVA in the right anterior frontal lobe lesion. Mass lesion less likely. Awaiting MRI of the brain. Echocardiogram pending. Blood glucose 157. The patient is seen today 10/03/2021 in follow-up on the regular medical floor. Currently resting fairly comfortably in bed. Awake and alert somewhat confused to time and place. He is on 15 L high flow nasal cannula to maintain O2 saturations in the low 90s. He's been afebrile. Hemodynamically stable. White count 12.9. Hemoglobin 12.9. Sodium 142. Potassium 4.3. Creatinine 1.0. Glucose 175. LDH 323. C-reactive protein 1.5. He is continued on Decadron, Lovenox, vitamin supplements. Remains on antibiotics in the form of Zosyn. Continue on Symbicort, Spiriva, albuterol. The patient is seen today 10/04/2021 in follow-up on the regular medical floor. He is awake and alert in no acute distress. Somewhat confused to time and place. He is resting comfortably in bed. He is still requiring 15 L high flow nasal cannula to maintain O2 saturation the high 80s low 90s. He's been afebril e. Hemodynamically stable. Blood glucose 177. He remains on Zosyn. Continued on Decadron, Lovenox, vitamin supplements. Continued on bronchodilators. The patient is seen today 10/05/2021 in follow-up on the regular medical floor. He is currently resting comfortably in bed. Remains a bit confused. He has is maintaining O2 saturations in the high 80s low 90s on 15 L high flow nasal cannula. He is afebrile. Hemodynamically stable. Chest x-ray continues to show similar left lower lung base and mid lung airspace opacities. No evidence of pneumothorax. D-dimer 2.0. Blood glucose 180. The patient is seen today 10/06/2019 follow-up on the regular medical floor. He remains awake and alert. Slow to respond. Sometimes confused sometimes alert and oriented 3. He is resting comfortably in bed. Currently on 15 L high flow nasal cannula. He does have oral thrush noted. We'll be initiated on Diflucan. He is continued on Zosyn. He remains on Lovenox, Decadron, vitamin supplem ents. Continued on bronchodilators. White count 11.0. Hemoglobin 12.2. Sodium 142. Potassium 4.3. Creatinine 1.1. LDH 268. C-reactive protein 0.30. Objective - Vital Signs Vital signs: Vital Signs Temp 98.1 F 10/06/21 08:00 Pulse 60 10/06/21 08:00 Resp 22 10/06/21 08:00 BP 129/79 10/06/21 08:00 Pulse Ox 92 L 10/06/21 08:00 Intake & Output 10/05/21 10/06/21 10/06/21 18:59 06:59 18:59 Intake Total 740 Output Total 1725 500 Balance -985 -500 Intake: IV 740 Dextrose 5% in Water 1, 600 000 ml @ 100 mls/hr IV . Q10H [facility] Rx#:[id number] Piperacillin-Tazobactam 3 100 .375 gm In Sodium Chloride 0.9% 100 ml @ 25 mls/hr IVPB Q8HR [facility] Rx# :[id number] Sodium Chloride 0.9% 1, 40 000 ml @ 20 mls/hr IV . Q24H [facility] Rx#:[id number] Output: Urine 1725 500 Other: Voiding Method Indwelling Catheter Indwelling Catheter Indwelling Catheter - Exam GENERAL EXAM: Awake, alert, pleasant 76-year-old male patient, on 15 L high flow nasal cannula, breathing comfortably, HEAD: Normocephalic/atraumatic. EYES: Normal reaction of pupils, equal size. Conjunctiva pink, sclera white. NOSE: Clear with pink turbinates. THROAT: No erythema or exudates. NECK: No masses, no JVD, no thyroid enlargement, no adenopathy. CHEST: No chest wall deformity. Symmetrical expansion. LUNGS: Equal air entry with diffuse crackles, diffuse rhonchi, patient has a congested cough CVS: Regular rate and rhythm, normal S1 and S2, no gallops, no murmurs, no rubs ABDOMEN: Soft, nontender. No hepatosplenomegaly, normal bowel sounds, no guarding or rigidity. EXTREMITIES: No clubbing, no edema, no cyanosis, 2+ pulses and upper and lower extremities. MUSCULOSKELETAL: Muscle strength and tone normal. SPINE: No scoliosis or deformity SKIN: No rashes CENTRAL NERVOUS SYSTEM: Alert, confused at times, slow to respond. No focal deficits, tone is normal in all 4 extremities. - Labs CBC & Chem 7: 10/06/21 06:55 10/06/21 06:55 Labs: Abnormal Lab Results - Last 24 Hours (Table) 10/05/21 10/05/21 10/05/21 Range/Units 07:30 17:21 21:16 WBC (4.50-10.00) X 10*3/uL RBC (4.40-5.60) X 10*6/uL Hgb (13.0-17.0) g/dL MCV (80.0-97.0) fL MCHC (32.0-37.0) g/dL Immature Gran # (0.00-0.04) X 10*3/uL Neutrophils # (1.80-7.70) X 10*3/uL BUN 30.6 H (9.0-27.0) mg/dL BUN/Creatinine Ratio 28.87 H (12.00-20.00) Ratio Glucose 157 H (70-110) mg/dL POC Glucose (mg/dL) 231 H 201 H (75-99) mg/dL Calcium 8.4 L (8.7-10.3) mg/dL AST 39 H (14-35) U/L ALT 113 H (10-49) U/L Lactate Dehydrogenase (120-246) U/L Total Protein 5.2 L (6.2-8.2) g/dL Albumin 2.9 L (3.8-4.9) g/dL Albumin/Globulin Ratio 1.19 L (1.60-3.17) g/dL 10/06/21 10/06/21 10/06/21 Range/Units 06:55 06:55 07:45 WBC 11.04 H (4.50-10.00) X 10*3/uL RBC 3.98 L (4.40-5.60) X 10*6/uL Hgb 12.2 L (13.0-17.0) g/dL MCV 100.3 H (80.0-97.0) fL MCHC 30.6 L (32.0-37.0) g/dL Immature Gran # 0.11 H (0.00-0.04) X 10*3/uL Neutrophils # 8.44 H (1.80-7.70) X 10*3/uL BUN 33.1 H (9.0-27.0) mg/dL BUN/Creatinine Ratio 29.82 H (12.00-20.00) Ratio Glucose 128 H (70-110) mg/dL POC Glucose (mg/dL) 140 H (75-99) mg/dL Calcium 8.5 L (8.7-10.3) mg/dL AST (14-35) U/L ALT (10-49) U/L Lactate Dehydrogenase 268 H (120-246) U/L Total Protein (6.2-8.2) g/dL Albumin (3.8-4.9) g/dL Albumin/Globulin Ratio (1.60-3.17) g/dL 10/06/21 Range/Units 11:29 WBC (4.50-10.00) X 10*3/uL RBC (4.40-5.60) X 10*6/uL Hgb (13.0-17.0) g/dL MCV (80.0-97.0) fL MCHC (32.0-37.0) g/dL Immature Gran # (0.00-0.04) X 10*3/uL Neutrophils # (1.80-7.70) X 10*3/uL BUN (9.0-27.0) mg/dL BUN/Creatinine Ratio (12.00-20.00) Ratio Glucose (70-110) mg/dL POC Glucose (mg/dL) 245 H (75-99) mg/dL Calcium (8.7-10.3) mg/dL AST (14-35) U/L ALT (10-49) U/L Lactate Dehydrogenase (120-246) U/L Total Protein (6.2-8.2) g/dL Albumin (3.8-4.9) g/dL Albumin/Globulin Ratio (1.60-3.17) g/dL Assessment and Plan Assessment: 1 Acute hypoxic respiratory failure related to acute COVID-19 pneumonia, possibility of underlying pneumonia is also considered based on elevated pro- calcitonin level of 4.89. Patient presented to the hospital on 09/23/2021 with 2 weeks of symptoms, he was outside the window for Remdesivir. He is not vaccinated against COVID-19. Not a candidate for Baricitinib, currently on Zosyn. Today on 10/06/2021 patient is on high flow oxygen at 15 L. Chest x-ray continues to show mid and left lower lung infiltrate and air space opacities. 2 Elevated pro-calcitonin level, suggesting possibility of underlying bacterial infection, currently on Zosyn, improving is down to 0.17 3 Acute kidney injury related to dehydration and ATN, improved with IV hydration and the creatinine 1.1 4 Diabetes mellitus type 2 5 Underlying history of sleep apnea on CPAP 6 Hypertension 7 Hyperlipidemia 8 Elevated d-dimer, with no evidence of DVT on lower extremity Dopplers 9 Hypernatremia, related to poor oral intake, improved with IV hydration with D5W 10 Pulmonary nodule, measuring 8 mm projecting at the right lower lobe, will need to be followed up on the CT of the chest with contrast 11 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, CT of the brain without contrast on 09/28/2021 showed focal area of low attenuation in the right frontal lobe with abscess of the rush-white matter concerning for rush-white matter junction mass/edema or CVA, neurology is following awaiting MRI of the brain 12 Altered mental status, related to the above, and possibility of subacute right frontal lobe CVA Plan: The patient was seen and evaluated Currently on 15 L high flow nasal cannula Titrate the FiO2 as tolerated Continue bronchodilators, Zosyn Continued on Lovenox, Decadron, vitamin supplements Prognosis is guarded We will continue to follow I, the cosigning physician, performed a history & physical examination of the patient. Lungs sounds are coarse crackles in the bilateral bases. Maintaining good O2 saturations in the 90s on 15 L high flow nasal cannula I discussed the assessment and plan of care with my nurse practitioner, Iraida Jimenez. I attest to the above note as dictated by her.
[2021-10-06] MEDS: SODIUM CHLORIDE 0.9% 1,000 ML IV SCH (16:18)
[2021-10-06 16:44] LABS: Glucose,Whole Blood 254 mg/dL (75-99)
[2021-10-06 20:38] LABS: Glucose,Whole Blood 212 mg/dL (75-99)
[2021-10-06] MEDS: LATANOPROST 0.005% OPHTH DROPS 2.5 ML BTL BOTH EYES SCH (23:30)
[2021-10-06 23:40] LABS: Glucose,Whole Blood 186 mg/dL (75-99)
--- NOTE | 2021-10-07 01:58 | P.PN ---
Subjective Progress Note Date: 10/06/21 76-year-old male came in with complaints of shortness of breath cough has been going on for about the 2 weeks. Patient is hypoxic present has 6 L of oxygen. Found to have Covid 19 infection" is significant infiltrate on the chest x-ray with elevated liver enzymes elevated to calcitonin 4.89. Patient was also having diarrhea nausea vomiting. is bit dehydrated. Patient was a creatinine is 1.42 diabetes with us and is on metformin at home. 09/25/2021 Patient evaluated today sitting in the chair. He is answering any questions and asked appears very lethargic, oxygen saturation 88% on 8 liters high flow cannula last documented. Upon my assessment patient did appear lethargic and hypoxic did increase his oxygen to 10 L high flow and was able to obtain 93-94% saturation rating. Blood pressure 150/85, respirations 19, heart 87, afebrile. Patient is a history of aphasia which is normal for him. He was able to state that he is feeling okay and denies any shortness of breath. Labs today; sodium 145, potassium 4.2, BUN 31.2, creatinine 1.1, glucose in the 300s, AST 113, AST 63, alk phos 88. Patient continues on albuterol, IV azithromycin, Symbicort, IV Rocephin, dexamethasone, Lovenox, zinc, vitamins. 09/26/2021 Patient is pretty status is bit worse compared to yesterday patient required BiPAP last night and patient is presently on high flow nasal cannula oxygen along with the nonrebreather 09/27/2021 Patient's respiratory status remains the same. Patient is still requiring BiPAP. Patient although feels better subjectively. On [id number]/25/2021 Patient's respiratory status remains the same is requiring a BiPAP on and off and is presently on 15 L high flow nasal cannula oxygen. His speech as per the nursing staff is better. His d-dimer is elevated I'll start him on Lovenox 40 twice a day 09/29/2021 Patient's hyponatremia improved patient also is confused compared to yesterday this is probably because of the steroids, infection, prolonged hospitalization. Pulmonary ordered CT of the head which is being obtain at this time. Patient isn't requirement remains the same. 09/30/2021 Patient is evaluated resting in the bed, he is getting an echocardiogram at the time of my assessment, which is pending at this time. Carotid Doppler shows no evidence for hemodynamically significant stenosis bilateral. Chest x-ray today shows worsening left lower lobe consolidation with minimal infiltrate at the right midlung. Brain CT completed yesterday shows a focal area of low attenuation right frontal lobe was absent rush-white matter differentiation and a nonvascular territory concerning for mass/edema, chronic microvascular ischemic changes and lacunar infarcts most likely chronic findings. Imaging was reviewed by neurology who recommended an MRI with and without contrast to rule out stroke first mass as he felt it was more likely subacute changes suspicious for stroke in the right frontal lobe. Venous Doppler yesterday was negative for bilateral DVT. D-dimer today 3.92, sodium 142, potassium 4.2, BUN 29.8, creatinine 1, blood sugars in the 170s, AST 39, ALT 54, LDH 419, CRP 4.6. Triglycerides elevated at 190, HDL 30. Vitals reviewed today shows a temp of 97.3, heart rate 90s sinus rhythm, blood pressure 130/86, oxygen saturation is 91% on a BiPAP with FiO2 70%. Patient has been unable to quit completely a PT evaluation due to his respiratory status, speech therapy is pending at this time. Continues on IV antibiotics in the form of azithromycin, X, zinc, multivitamins, Decadron, bronchodilators. He is being followed closely by lmonary and neurology services. 10/01/2021 Patient is alert and oriented x3, he is a poor historian however. Difficult to carry on a conversation and complete a review of systems, as he is hard of hearing. He is lying on his right side during examination. Labs today show a white count of 13.62, D-Dimer of 2.55, sodium 138, potassium of 6, which was repeated and is now 4.3, BUN 33, creatinine 0.99, blood sugars 198, magnesium 2.3, AST 87, ALT 67, alk phos 109, total protein 5.9, albumin 2.6. Vitals reviewed; he is afebrile, heart rate 97, blood pressure 152/80, 91% on 10 L HF cannula. He was able to be weaned slightly from a 15 L high flow cannula. MRI of the brain is pending. [id number] Patient is currently in the medical floor. Requiring oxygen 15 L via nasal cannula high flow. Patient is otherwise lying in the bed comfortably. Does have minimal cough. Patient is being continued on dexamethasone and Lovenox and multivitamin supplementation also on Symbicort and Spiriva and albuterol inhalation. CT head showed possible subacute to chronic CVA in the right anterior frontal lobe lesion. Awaiting MRI of the brain. 2D echocardiogram is pending. Laboratory data reviewed. Pulmonary and neurology is on board. 10/03/2021 patient is currently awake alert. Requiring oxygen 15 L high flow oxygen via nasal cannula. Patient is being current dexamethasone and Lovenox and multivitamin supplementation. Patient is also on antibiotic in the form of Zosyn. Currently afebrile. Laboratory data showed WBC 12.9 hemoglobin 12.9 platelets 319 BUN 23 and creatinine 1.0 LDAs 323 and CRP 1.5. MRI is pending to rule out subacute/acute CVA. Neurology and pulmonary is on board. 10/04/2021 patient is awake alert and able to communicate. 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 Resting in the bed comfortably. Requiring oxygen at 15 L via nasal cannula. She'll be continued on dexamethasone Lovenox and multivitamins mentation and remains on Zosyn. Patient has been afebrile. Tolerating oral diet. No cough or sputum production. No nausea vomiting abdominal pain or diarrhea.. Laboratory data reviewed. 10/05/2021 patient is currently resting in the bed. Awake alert and oriented x3. Still requiring oxygen 15 L high flow. Chest x-ray showed similar left lung base and midlung airspace opacities. No evidence of pneumothorax. Patient is on dexamethasone and Lovenox and multivitamins. Patient is being current on Zosyn. Day 5. Patient is tolerating oral diet. D5 water has been discontinued and patient declines KVO. Encourage oral intake. Continue with insulin sliding scale for better blood sugar control. Continued on duo nebs and Symbicort. Neurology and pulmonary is on board. 10/06/2021 Patient is currently lying in the bed. Awake alert and oriented. No complaints of chest pain or worsening shortness of breath. Currently requiring 15 L oxygen via nasal cannula. Patient is maintained antibiotics involve Zosyn. Continue dexamethasone Lovenox subcu and multivitamin supplementation. Laboratory data showed WBC 11.0 hemoglobin 12.1 platelets 278 BUN 33 and creatinine 1.1 blood sugar is 268 REVIEW OF SYSTEMS CONSTITUTIONAL: Denies fever or chills. CARDIOVASCULAR: Denies chest pain, shortness of breath, orthopnea, PND or palpitations. RESPIRATORY: Denies cough. GASTROINTESTINAL: Denies abdominal pain, diarrhea, constipation, nausea or vomiting. MUSCULOSKELETAL: Denies myalgias. NEUROLOGIC: Denies numbness, tingling or weakness. ENDOCRINE: Denies fatigue, weight change, polydipsia or polyurina. GENITOURINARY: Denies burning, hematuria or urgency with micturation. HEMATOLOGIC: Denies history of anemia or bleeding. All inpatient medications were reviewed and appropriate changes in these medications as dictated in the interval history and assessment and plan. Objective - Vital Signs Vital signs: Vital Signs Temp 97.6 F 10/06/21 14:00 Pulse 90 10/06/21 14:00 Resp 18 10/06/21 14:00 BP 126/62 10/06/21 14:00 Pulse Ox 92 L 10/06/21 14:00 Intake & Output 10/05/21 10/06/21 10/06/21 18:59 06:59 18:59 Intake Total 740 Output Total 1725 500 Balance -985 -500 Intake: IV 740 Dextrose 5% in Water 1, 600 000 ml @ 100 mls/hr IV . Q10H [facility] Rx#:[id number] Piperacillin-Tazobactam 3 100 .375 gm In Sodium Chloride 0.9% 100 ml @ 25 mls/hr IVPB Q8HR [facility] Rx# :[id number] Sodium Chloride 0.9% 1, 40 000 ml @ 20 mls/hr IV . Q24H [facility] Rx#:[id number] Output: Urine 1725 500 Other: Voiding Method Indwelling Catheter Indwelling Catheter Indwelling Catheter - Exam PHYSICAL EXAMINATION: GENERAL: The patient is alert and oriented x1, mild respiratory distress. Well developed, well nourished. HEENT: Pupils are round and equally reacting to light. EOMI. No scleral icterus. No conjunctival pallor. Normocephalic, atraumatic. No pharyngeal erythema. No thyromegaly. CARDIOVASCULAR: S1 and S2 present. No murmurs, rubs, or gallops. PULMONARY: Coarse rhonchi bilateral ABDOMEN: Soft, nontender, nondistended, normoactive bowel sounds. No palpable organomegaly. MUSCULOSKELETAL: No joint swelling or deformity. EXTREMITIES: No cyanosis, clubbing, mild peripheral edema NEUROLOGICAL: Gross neurological examination did not reveal any focal deficits. SKIN: No rashes. - Labs CBC & Chem 7: 10/06/21 06:55 10/06/21 06:55 Labs: Abnormal Lab Results - Last 24 Hours (Table) 10/05/21 10/05/21 10/06/21 Range/Units 17:21 21:16 06:55 WBC 11.04 H (4.50-10.00) X 10*3/uL RBC 3.98 L (4.40-5.60) X 10*6/uL Hgb 12.2 L (13.0-17.0) g/dL MCV 100.3 H (80.0-97.0) fL MCHC 30.6 L (32.0-37.0) g/dL Immature Gran # 0.11 H (0.00-0.04) X 10*3/uL Neutrophils # 8.44 H (1.80-7.70) X 10*3/uL BUN (9.0-27.0) mg/dL BUN/Creatinine Ratio (12.00-20.00) Ratio Glucose (70-110) mg/dL POC Glucose (mg/dL) 231 H 201 H (75-99) mg/dL Calcium (8.7-10.3) mg/dL Lactate Dehydrogenase (120-246) U/L 10/06/21 10/06/21 10/06/21 Range/Units 06:55 07:45 11:29 WBC (4.50-10.00) X 10*3/uL RBC (4.40-5.60) X 10*6/uL Hgb (13.0-17.0) g/dL MCV (80.0-97.0) fL MCHC (32.0-37.0) g/dL Immature Gran # (0.00-0.04) X 10*3/uL Neutrophils # (1.80-7.70) X 10*3/uL BUN 33.1 H (9.0-27.0) mg/dL BUN/Creatinine Ratio 29.82 H (12.00-20.00) Ratio Glucose 128 H (70-110) mg/dL POC Glucose (mg/dL) 140 H 245 H (75-99) mg/dL Calcium 8.5 L (8.7-10.3) mg/dL Lactate Dehydrogenase 268 H (120-246) U/L Assessment and Plan Assessment: Assessment and plan -Acute hypoxic respiratory failure secondary to COVID 19 pneumonia; Patient doesn't qualify for a Remdesivir. on 15 L hi flow -Acute renal failure possibly secondary to intravascular depletion and dehydration, resolved at this time -Altered Mental status secondary to toxic encephalopathy from Decadron, infection with a competent of her prolonged hospitalization leading to sundowners, rule out subacute stroke, neurology consult, MRI pending -possibility of subacute to chronic CVA in the right anterior frontal lobe region -Type 2 diabetes mellitus with hyperglycemia, improving -Hypertension -Hyperlipidemia -transaminitis secondary to Covid 19 infection -Elevated D-Dimer secondary to Covid 19 infection -Elevated inflammatory markers of Covid 19 -Obstructive sleep apnea patient doesn't use any oxygen at home patient quit smoking many years ago DVT prophylaxis: Lovenox Plan MRI pending, Echo pending Continue neuro checks Continue IV antibiotics Continue decadron, zinc, vitamins, lovenox Continue bronchodilators Titrate oxygen as needed Present insulin regimen Continue all other supportive care Prognosis remains guarded for this patient Time with Patient: Greater than 30
[2021-10-07 07:07] LABS: Glucose,Whole Blood 142 mg/dL (75-99)
--- NOTE | 2021-10-07 07:38 | XR ---
EXAMINATION TYPE: XR chest 1V DATE OF EXAM: 10/07/2021 CLINICAL HISTORY: Difficulty breathing and covid progress study. TECHNIQUE: Single AP portable upright view of the chest is obtained. COMPARISON: Chest x-ray from 2 days earlier and older studies FINDINGS: Low lung volumes with left greater than right bilateral lower lung opacities greatest in t he periphery are redemonstrated. Cardiac silhouette size stable and upper limits of normal. Osseous s tructures are demineralized. Fusion plate lower cervical spine redemonstrated. IMPRESSION: Persistent low lung volumes with left greater than right bilateral lower lung opacities c onsistent with covid-19 infection are redemonstrated. No significant change from 2 days earlier.
[2021-10-07] MEDS: ALBUTEROL HFA INHALER INHALATION SCH ×4 (08:51→21:27)
[2021-10-07] MEDS: TIOTROPIUM 2.5 MCG INHALER INHALATION SCH (08:51)
[2021-10-07] MEDS: SYMBICORT 80-4.5 MCG INHALER INHALATION SCH ×2 (08:54→21:27)
[2021-10-07] MEDS: TAMSULOSIN 0.4 MG CAP.ER.24H PO SCH (09:32)
[2021-10-07] MEDS: ASCORBIC ACID 500 MG TAB PO SCH (09:32)
[2021-10-07] MEDS: ASPIRIN 325 MG TAB PO SCH (09:32)
[2021-10-07] MEDS: GABAPENTIN 300 MG CAP PO SCH ×3 (09:33→20:36)
[2021-10-07] MEDS: carvediloL 12.5 MG TAB PO SCH ×2 (09:33→16:48)
[2021-10-07] MEDS: CHOLECALCIFEROL 125 MCG (5000 IU) TABLET PO SCH (09:33)
[2021-10-07] MEDS: FLUCONAZOLE 100 MG TAB PO SCH (09:33)
[2021-10-07] MEDS: amLODIPine 5 MG TAB PO SCH (09:34)
[2021-10-07] MEDS: DEXAMETHASONE SOD PHOSPHATE 10 MG/ML 1 ML VIAL IVP SCH (09:34)
[2021-10-07] MEDS: ZINC SULFATE 220 MG CAP PO SCH (09:34)
[2021-10-07] MEDS: PIPERACILLIN-TAZOBACTAM 3.375 GM in SODIUM CHLORIDE 0.9% 100 ML IVPB SCH ×2 (09:35→16:49)
[2021-10-07] MEDS: INSULIN ASPART (NovoLOG) 100 UNIT/ML VIAL SQ SCH ×7 (09:35→20:55)
[2021-10-07] MEDS: ENOXAPARIN 40 MG/0.4 ML SYRINGE SQ SCH ×2 (09:35→20:36)
[2021-10-07] MEDS: LIDOCAINE 5% PATCH TOPICAL SCH (09:36)
[2021-10-07 10:59] LABS: Basophils # (A) 0.01 X 10*3/uL (0.00-0.10); Basophils % (A) 0.1 %; Eosinophils # (A) 0.01 X 10*3/uL (0.04-0.35); Eosinophils % (A) 0.1 %; HCT 38.3 % (39.6-50.0); Lymphocytes # (A) 1.36 X 10*3/uL (0.90-5.00); Lymphocytes % (A) 11.1 %; MCH 31.5 pg (27.0-32.0); MCHC 31.3 g/dL (32.0-37.0); MCV 100.5 fL (80.0-97.0); Mean Platelet Volume 9.9 fL (9.5-12.2); Monocytes # (A) 0.78 X 10*3/uL (0.20-1.00); Monocytes % (A) 6.4 %; Neutrophils # (A) 10.02 X 10*3/uL (1.80-7.70); Neutrophils % (A) 81.5 %; Platelet Count 240 X 10*3/uL (140-440); RBC 3.81 X 10*6/uL (4.40-5.60); RDW 13.9 % (11.5-14.5); WBC 12.28 X 10*3/uL (4.50-10.00)
[2021-10-07 11:15] LABS: African American GFR (CKD) 80.5 (60.0-200.0); Anion Gap 10.9 mmol/L (10.00-18.00); BUN/Creat Ratio 31.15 Ratio (12.00-20.00); Blood Urea Nitrogen 32.4 mg/dL (9.0-27.0); Calcium 8.5 mg/dL (8.7-10.3); Carbon Dioxide 25.2 mmol/L (20.0-27.5); Non-African American GFR(CKD) 69.4 (60.0-200.0); Potassium 4.2 mmol/L (3.5-5.5)
[2021-10-07 11:45] LABS: Glucose,Whole Blood 236 mg/dL (75-99)
[2021-10-07 16:22] LABS: Glucose,Whole Blood 250 mg/dL (75-99)
--- NOTE | 2021-10-07 17:47 | P.PN ---
Subjective Progress Note Date: 10/07/21 Principal diagnosis: Dyspnea This is a 76-year-old male patient who follows with the [facility] system as his primary care provider. He has a history of chronic obstructive pulmonary disease, hypertension, hyperlipidemia, diabetes mellitus, obstructive sleep apnea maintained on CPAP at a pressure of 11 cm of water with C-Flex of 3. He has a 2 week history of increasing shortness of breath, cough and congestion. He presented here to the emergency room yesterday for the same. X-ray reveals bilateral patchy infiltrates left greater than right consistent with COVID-19 pneumonia. White count 8.2. Hemoglobin 12.0. D-dimer 2.07. Sodium 140. Potassium 4.0. Creatinine 1.4. AST 85. ALT 50. LDH 1625. C-reactive protein 38.4. Pro-calcitonin 4.89. [place] virus by PCR positive. He's been initiated on Decadron, vitamin supplements. If he did receive Lovenox 100 mg subcu once yesterday. Normal saline at 75 ML's per hour. He is seen today in consultation in the emergency department. He is currently sitting up awake and alert. Somewhat slow to respond. Somewhat of a poor historian. His daughter is present in the room in supplies most of the information. Is currently maintaining O2 saturations in the low 90s on 6 L high flow nasal cannula. He's been afebrile. Slightly tachycardic. Hypertensive. On 09/25/2021 patient seen in follow-up on medical surgical floor, he is a poor historian, he is currently sitting up in the recliner, he is currently on 8 L of oxygen and his oxygen demand has increased compared to yesterday when he was on 6 L per high flow nasal cannula. Pulse ox is currently 88-89%, he is afebrile, remains hypertensive with blood pressure in the 180s over 107, with a mean of 133 bpm. D-dimer came back elevated at 2.07, lower extremity Dopplers showed no evidence of DVTs in both. His been afebrile, does have a congestive cough, overall his mentation is confused and sleepy. He is currently on the Decadron 6 mg daily, he is on inhaled bronchodilators. Cough is congested, patient does have underlying history of COPD, we will add empiric antibiotics today. We'll obtain follow up pro-calcitonin level. Initial pro-calcitonin level on admission was elevated to 4.89. On 09/26/2021 patient seen in follow-up medical surgical floor. He is confused, but his responsive, he denies any acute distress. He was taken off the BiPAP support this morning, he is currently on 15 L high flow oxygen, and his pulse ox is 89-91%, he removes his oxygen at times, desaturates, becomes more confused. Low-grade fevers in the last 24 hours with a temp of 99.5F. Lung sounds reveal diffuse coarse inspiratory crackles throughout the lung baxter. No complaints of chest pain, occasional cough, no phlegm production. His chest x-ray today shows stable bibasilar and left peripheral COVID infiltrates, and 8 mm nodular density at the right lower lung with a recommendation of follow-up CT scanning of the chest to exclude underlying pulmonary nodule. Patient continues on Rocephin and azithromycin for empiric antibiotic coverage, he is on Decadron 6 mg daily, he is on prophylactic dose of Lovenox. Today's labs have been reviewed, his white blood cell count 8.12, hemoglobin is 12.4, serum sodium is 147, potassium is 4.0, chloride is 111, B1 is 32, creatinine is 1.2, ferritin level is improving and is down to 1227, LDH is down to 477, improved and CRP is also improving and is down to 7.8, follow up pro-calcitonin was improved and was down to 1.53. On 09/27/2021 patient seen in follow-up on medical surgical floor. He is curr ently sleeping, he is on BiPAP support, which he looks very comfortable on, breathing comfortably, BiPAP settings of 12 and 6 and FiO2 of 70%, his pulse ox is Usually better on BiPAP at 95%. On 15 L per high flow nasal cannula his pulse ox is 186%, afebrile, hemodynamically stable, still confused, not agitated. His last chest x-ray from 09/25/2001 showed stable bibasilar and left peripheral COVID infiltrates. Patient was also suspected to have bacteria superinfection, he was placed on azithromycin and Rocephin, his pro-calcitonin was improving, and is down to 0.73 on today's labs from the original value of 4.89 on 09/23/2021. White count is 8.4, hemoglobin is 0.8, his d-dimer is 3.19, sodium is 146, patient remains on D5W at 50 ML per hour, potassium 3.6, B1 is 29, creatinine is 1.His LDH is slightly improved and is down to 1164, CRP is 12.1, improved since admission. Appears to be in no acute distress. Appetite is poor, he is only consuming about 25% of his meals. On 09/29/2021 patient seen in follow-up on medical surgical floor. Patient remains confused, but more awake on today's exam, he has been alternating between BiPAP with pressures of 12.6 and FiO2 of 70% and 15 L high flow oxygen. Pulse ox is 91-92%, his been afebrile. He is only oriented to self, very disoriented to place and time, confused. Does not appear to be in respiratory distress. He does have a cough, which is congested and his mouth has dried up phlegm, oral mucous membranes are extremely dry. Patient has had very poor oral intake related to being BiPAP dependent. Currently tolerating high flow nasal cannula much better, although still remains very confused. But at this point probably able to tolerate some oral feedings. Lung sounds reveal diffuse rhonchi. Needs pulmonary toileting and aspiration precautions. Patient's family was in yesterday to see him for Nettie, and they were concerned about his altered mentation. We will obtain brain CT without today. Remains on antibiotics with azithromycin and Rocephin. He remains on D5W at a rate of 50 ML per hour, Decadron 6 mg daily and Lovenox 40 mg twice daily. His last d- dimer from yesterday was up trending was up to 6.07 at which point his Lovenox dose has been increased to twice daily. His serum sodium has normalized and was down to 144 on yesterday's labs. BUN is 28 creatinine is 1. Inflammatory markers were improving since admission and LDH was down to 413, and CRP was 8.6. Procalcitonin was down to 0.73 On 09/30/2021 patient seen in follow-up on medical surgical floor. he remains confused, but awake and alert, but his speech does not make sense. No unilateral weakness noted. Still significantly altered mentation. This morning he is on Airvo at 12/6 and FiO2 of 50%, his pulse ox is 91-95%. Today he has a strong effective cough, has a bit of a chest congestion, congested cough. Afebrile, hemodynamically he is stable. He asked to have the BiPAP mask removed, and he was placed on 15 L per high flow nasal cannula, breathing fairly comfortably. Yesterday's chest x-ray showed worsening left lower lobe consolidation with minimal infiltration through the right midlung. Patient is currently on a combination of azithromycin and Rocephin, his last pro-calcitonin was down to 0.73. Yesterday CT of the brain was obtained in view of altered mental status, and he was found to have a focal area of low attenuation in the right frontal lobe, stat neurology evaluation was requested, an MRI of the brain with and without to rule out acute CVA was recommended. However a subacute right frontal lobe CVA is suspected. Venous Doppler yesterday was negative for bilateral DVT, today's d-dimer is 3.92, serum sodium has normalized and is down to 142, potassium is 4.2, BUN is 29.8, creatinine is 1, but sugars in the 170s range, AST 39, ALT is 54, LDH is 419, CRP is 4.6. Vital signs show no evidence of fever, patient is in sinus mechanism with a controlled rate, blood pressure stable 130/86. Currently patient remains on D5W at a rate of 50 ML per hour, oral intake has been limited still. However he is able to take in some Ensure with supervision and assistance. He continues on multivitamins, he continues on Decadron. On 10/01/2021 patient seen in follow-up on medical surgical floor. He is resting comfortably in bed, he continues to be confused, although somewhat improved, he was able to tell nursing staff he was in the hospital, and that the month was September. He is not using BiPAP support, he is currently on 15 L of oxygen per high flow nasal cannula his pulse ox is 90%, breathing is nonlabored, lung sounds are positive for diminished breath sounds with some scattered crackles. No cough, no chest pain, while signs have been stable patient has been afebrile. He continues on Decadron 6 mg daily, Lovenox 40 mg twice daily, he is on Zosyn for empiric antibiotic coverage, today's labs have been reviewed, white blood cell count is 13.6, hemoglobin is 13, d-dimer was improving on yesterday's labs and was down to 3.92, today's level still pending, sodium is 141, potassium is 6.0, and this has hemolyzed, BUN is 28 and creatinine is 1, pro-calcitonin level is pending. On the 10/07/2021 patient seen in follow-up on medical surgical floor, he remains on high flow oxygen, currently on 15 L and his pulse ox is 92%, he is laying in bed, not clear if his been up with physical therapy in the chair, his speech is better, he is awake and alert, he is answering questions appropr iately, he is talking about his , he knows he is in [place], he knew he was in the hospital. His been afebrile, vital signs have been stable, breathing is nonlabored, lung sounds are positive for a few scattered rhonchi, patient remains on Zosyn for possibility of aspiration. Today's labs have been reviewed his white blood cell count is fairly stable over last several days at 12.28, hemoglobin is 12, his platelet count is 240, electrolytes were unremarkable, BUN was 32, and creatinine was 1. His last set of inflammatory markers from yesterday showed LDH of 268, and CRP of 0.30, significantly improved. Patient continues on Decadron 6 mg daily, he continues on Diflucan, and Zosyn as mentioned above he is on Symbicort and Spiriva in addition to albuterol. His chest x-ray today showing persistent low lung volumes with left greater than right bilateral lower lung opacities consistent with COVID-19 infection. No significant change from 2 days earlier. Objective - Vital Signs Vital signs: Vital Signs Temp 98.1 F 10/07/21 13:38 Pulse 96 10/07/21 13:38 Resp 24 10/07/21 13:38 BP 95/62 10/07/21 13:38 Pulse Ox 92 L 10/07/21 13:38 Intake & Output 10/06/21 10/07/21 10/07/21 18:59 06:59 18:59 Output Total 675 Balance -675 Output: Urine 675 Other: Voiding Method Indwelling Catheter Indwelling Catheter Indwelling Catheter - Exam GENERAL EXAM: More awake, 76-year-old white male, currently on 15 L of oxygen with pulse ox of 92%, HEAD: Normocephalic/atraumatic. EYES: Normal reaction of pupils, equal size. Conjunctiva pink, sclera white. NOSE: Clear with pink turbinates. MOUTH: dry oral mucous membranes, with dried oral secretions THROAT: No erythema or exudates. NECK: No masses, no JVD, no thyroid enlargement, no adenopathy. CHEST: No chest wall deformity. Symmetrical expansion. LUNGS: Equal air entry with diffuse crackles, diffuse rhonchi, patient has a congested cough CVS: Regular rate and rhythm, normal S1 and S2, no gallops, no murmurs, no rubs ABDOMEN: Soft, nontender. No hepatosplenomegaly, normal bowel sounds, no guarding or rigidity. EXTREMITIES: No clubbing, no edema, no cyanosis, 2+ pulses and upper and lower extremities. MUSCULOSKELETAL: Muscle strength and tone normal. SPINE: No scoliosis or deformity SKIN: No rashes CENTRAL NERVOUS SYSTEM: Confused, but appears to be more alert, currently on 15 l/min. - Labs CBC & Chem 7: 10/07/21 07:40 10/07/21 07:40 Labs: Abnormal Lab Results - Last 24 Hours (Table) 10/06/21 10/06/21 10/07/21 Range/Units 20:36 23:38 07:06 WBC (4.50-10.00) X 10*3/uL RBC (4.40-5.60) X 10*6/uL Hgb (13.0-17.0) g/dL Hct (39.6-50.0) % MCV (80.0-97.0) fL MCHC (32.0-37.0) g/dL Immature Gran # (0.00-0.04) X 10*3/uL Neutrophils # (1.80-7.70) X 10*3/uL Eosinophils # (0.04-0.35) X 10*3/uL BUN (9.0-27.0) mg/dL BUN/Creatinine Ratio (12.00-20.00) Ratio Glucose (70-110) mg/dL POC Glucose (mg/dL) 212 H 186 H 142 H (75-99) mg/dL Calcium (8.7-10.3) mg/dL 10/07/21 10/07/21 10/07/21 Range/Units 07:40 07:40 11:43 WBC 12.28 H (4.50-10.00) X 10*3/uL RBC 3.81 L (4.40-5.60) X 10*6/uL Hgb 12.0 L (13.0-17.0) g/dL Hct 38.3 L (39.6-50.0) % MCV 100.5 H (80.0-97.0) fL MCHC 31.3 L (32.0-37.0) g/dL Immature Gran # 0.10 H (0.00-0.04) X 10*3/uL Neutrophils # 10.02 H (1.80-7.70) X 10*3/uL Eosinophils # 0.01 L (0.04-0.35) X 10*3/uL BUN 32.4 H (9.0-27.0) mg/dL BUN/Creatinine Ratio 31.15 H (12.00-20.00) Ratio Glucose 140 H (70-110) mg/dL POC Glucose (mg/dL) 236 H (75-99) mg/dL Calcium 8.5 L (8.7-10.3) mg/dL 10/07/21 Range/Units 16:20 WBC (4.50-10.00) X 10*3/uL RBC (4.40-5.60) X 10*6/uL Hgb (13.0-17.0) g/dL Hct (39.6-50.0) % MCV (80.0-97.0) fL MCHC (32.0-37.0) g/dL Immature Gran # (0.00-0.04) X 10*3/uL Neutrophils # (1.80-7.70) X 10*3/uL Eosinophils # (0.04-0.35) X 10*3/uL BUN (9.0-27.0) mg/dL BUN/Creatinine Ratio (12.00-20.00) Ratio Glucose (70-110) mg/dL POC Glucose (mg/dL) 250 H (75-99) mg/dL Calcium (8.7-10.3) mg/dL Assessment and Plan Plan: Assessment: #1. Acute hypoxic respiratory failure related to acute COVID-19 pneumonia, possibility of underlying pneumonia is also considered based on elevated pro- calcitonin level of 4.89. Patient presented to the hospital on 09/23/2021 with 2 weeks of symptoms, he was outside the window for Remdesivir. He is not vaccinated against COVID-19. Today on 09/29/2021 patient is on high flow oxygen at 15 L, and alternate it with BiPAP support at 12 and 6 and FiO2 of 70% #2. Elevated pro-calcitonin level, suggesting possibility of underlying bacterial infection, will cover with the combination of Rocephin and a zithromycin, improving is down to 0.17 #3. Acute kidney injury related to dehydration and ATN, improved with IV hydration #4. Diabetes mellitus type 2 #5. Underlying history of sleep apnea on CPAP #6. Hypertension #7. Hyperlipidemia #8. Elevated d-dimer, with no evidence of DVT on lower extremity Dopplers #9. Hypernatremia, related to poor oral intake, improved with IV hydration with D5W #10. Pulmonary nodule, measuring 8 mm projecting at the right lower lobe, will need to be followed up on the CT of the chest with contrast #11. 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, CT of the brain without contrast on 09/28/2021 showed focal area of low attenuation in the right frontal lobe with abscess of the rush-white matter concerning for rush-white matter junction mass/edema or CVA, neurology is following #12. Altered mental status, related to the above, and subacute right frontal lobe CVA Plan: Continue weaning FiO2 to maintain O2 saturations at or above 90% May use BiPAP support intermittently Consults physical therapy, encouraged patient to sit up in a chair Continue Decadron, continue Lovenox Continue multivitamins We will discontinue Zosyn, Pro-calcitonin Level Has Significantly Improved Inflammatory markers have improved Maintain aspiration precautions I performed a history & physical examination of the patient and discussed their management with my nurse practitioner, Terri Key. I reviewed the nurse practitioner's note and agree with the documented findings and plan of care. Lung sounds are positive for dim breath sounds throughout the lung baxter. The findings and the impression was discussed with the patient. I attest to the documentation by the nurse practitioner. Time with Patient: Less than 30
[2021-10-07 20:47] LABS: Glucose,Whole Blood 181 mg/dL (75-99)
[2021-10-07 20:50] LABS: Glucose,Whole Blood 171 mg/dL (75-99)
[2021-10-07] MEDS: LATANOPROST 0.005% OPHTH DROPS 2.5 ML BTL BOTH EYES SCH (20:54)
[2021-10-07] MEDS: SODIUM CHLORIDE 0.9% 1,000 ML IV SCH (20:55)
[2021-10-08 07:13] LABS: Glucose,Whole Blood 108 mg/dL (75-99)
[2021-10-08] MEDS: INSULIN ASPART (NovoLOG) 100 UNIT/ML VIAL SQ SCH ×7 (07:29→21:37)
[2021-10-08] MEDS: SYMBICORT 80-4.5 MCG INHALER INHALATION SCH ×2 (08:35→20:38)
[2021-10-08] MEDS: ALBUTEROL HFA INHALER INHALATION SCH ×4 (08:35→20:38)
[2021-10-08] MEDS: TIOTROPIUM 2.5 MCG INHALER INHALATION SCH (08:41)
[2021-10-08] MEDS: ZINC SULFATE 220 MG CAP PO SCH (09:18)
[2021-10-08] MEDS: ENOXAPARIN 40 MG/0.4 ML SYRINGE SQ SCH ×2 (09:18→21:37)
[2021-10-08] MEDS: FLUCONAZOLE 100 MG TAB PO SCH (09:19)
[2021-10-08] MEDS: CHOLECALCIFEROL 125 MCG (5000 IU) TABLET PO SCH (09:19)
[2021-10-08] MEDS: carvediloL 12.5 MG TAB PO SCH ×2 (09:19→17:33)
[2021-10-08] MEDS: LIDOCAINE 5% PATCH TOPICAL SCH (09:19)
[2021-10-08] MEDS: GABAPENTIN 300 MG CAP PO SCH ×3 (09:19→21:38)
[2021-10-08] MEDS: DEXAMETHASONE SOD PHOSPHATE 10 MG/ML 1 ML VIAL IVP SCH (09:19)
[2021-10-08] MEDS: ASPIRIN 325 MG TAB PO SCH (09:19)
[2021-10-08] MEDS: TAMSULOSIN 0.4 MG CAP.ER.24H PO SCH (09:19)
[2021-10-08] MEDS: amLODIPine 5 MG TAB PO SCH (09:19)
[2021-10-08] MEDS: ASCORBIC ACID 500 MG TAB PO SCH (09:19)
--- NOTE | 2021-10-08 11:11 | P.PN ---
Subjective Progress Note Date: 10/07/21 76-year-old male came in with complaints of shortness of breath cough has been going on for about the 2 weeks. Patient is hypoxic present has 6 L of oxygen. Found to have Covid 19 infection" is significant infiltrate on the chest x-ray with elevated liver enzymes elevated to calcitonin 4.89. Patient was also having diarrhea nausea vomiting. is bit dehydrated. Patient was a creatinine is 1.42 diabetes with us and is on metformin at home. 09/25/2021 Patient evaluated today sitting in the chair. He is answering any questions and asked appears very lethargic, oxygen saturation 88% on 8 liters high flow cannula last documented. Upon my assessment patient did appear lethargic and hypoxic did increase his oxygen to 10 L high flow and was able to obtain 93-94% saturation rating. Blood pressure 150/85, respirations 19, heart 87, afebrile. Patient is a history of aphasia which is normal for him. He was able to state that he is feeling okay and denies any shortness of breath. Labs today; sodium 145, potassium 4.2, BUN 31.2, creatinine 1.1, glucose in the 300s, AST 113, AST 63, alk phos 88. Patient continues on albuterol, IV azithromycin, Symbicort, IV Rocephin, dexamethasone, Lovenox, zinc, vitamins. 09/26/2021 Patient is pretty status is bit worse compared to yesterday patient required BiPAP last night and patient is presently on high flow nasal cannula oxygen along with the nonrebreather 09/27/2021 Patient's respiratory status remains the same. Patient is still requiring BiPAP. Patient although feels better subjectively. On [id number]/25/2021 Patient's respiratory status remains the same is requiring a BiPAP on and off and is presently on 15 L high flow nasal cannula oxygen. His speech as per the nursing staff is better. His d-dimer is elevated I'll start him on Lovenox 40 twice a day 09/29/2021 Patient's hyponatremia improved patient also is confused compared to yesterday this is probably because of the steroids, infection, prolonged hospitalization. Pulmonary ordered CT of the head which is being obtain at this time. Patient isn't requirement remains the same. 09/30/2021 Patient is evaluated resting in the bed, he is getting an echocardiogram at the time of my assessment, which is pending at this time. Carotid Doppler shows no evidence for hemodynamically significant stenosis bilateral. Chest x-ray today shows worsening left lower lobe consolidation with minimal infiltrate at the right midlung. Brain CT completed yesterday shows a focal area of low attenuation right frontal lobe was absent rush-white matter differentiation and a nonvascular territory concerning for mass/edema, chronic microvascular ischemic changes and lacunar infarcts most likely chronic findings. Imaging was reviewed by neurology who recommended an MRI with and without contrast to rule out stroke first mass as he felt it was more likely subacute changes suspicious for stroke in the right frontal lobe. Venous Doppler yesterday was negative for bilateral DVT. D-dimer today 3.92, sodium 142, potassium 4.2, BUN 29.8, creatinine 1, blood sugars in the 170s, AST 39, ALT 54, LDH 419, CRP 4.6. Triglycerides elevated at 190, HDL 30. Vitals reviewed today shows a temp of 97.3, heart rate 90s sinus rhythm, blood pressure 130/86, oxygen saturation is 91% on a BiPAP with FiO2 70%. Patient has been unable to quit completely a PT evaluation due to his respiratory status, speech therapy is pending at this time. Continues on IV antibiotics in the form of azithromycin, X, zinc, multivitamins, Decadron, bronchodilators. He is being followed closely by lmonary and neurology services. 10/01/2021 Patient is alert and oriented x3, he is a poor historian however. Difficult to carry on a conversation and complete a review of systems, as he is hard of hearing. He is lying on his right side during examination. Labs today show a white count of 13.62, D-Dimer of 2.55, sodium 138, potassium of 6, which was repeated and is now 4.3, BUN 33, creatinine 0.99, blood sugars 198, magnesium 2.3, AST 87, ALT 67, alk phos 109, total protein 5.9, albumin 2.6. Vitals reviewed; he is afebrile, heart rate 97, blood pressure 152/80, 91% on 10 L HF cannula. He was able to be weaned slightly from a 15 L high flow cannula. MRI of the brain is pending. [id number] Patient is currently in the medical floor. Requiring oxygen 15 L via nasal cannula high flow. Patient is otherwise lying in the bed comfortably. Does have minimal cough. Patient is being continued on dexamethasone and Lovenox and multivitamin supplementation also on Symbicort and Spiriva and albuterol inhalation. CT head showed possible subacute to chronic CVA in the right anterior frontal lobe lesion. Awaiting MRI of the brain. 2D echocardiogram is pending. Laboratory data reviewed. Pulmonary and neurology is on board. 10/03/2021 patient is currently awake alert. Requiring oxygen 15 L high flow oxygen via nasal cannula. Patient is being current dexamethasone and Lovenox and multivitamin supplementation. Patient is also on antibiotic in the form of Zosyn. Currently afebrile. Laboratory data showed WBC 12.9 hemoglobin 12.9 platelets 319 BUN 23 and creatinine 1.0 LDAs 323 and CRP 1.5. MRI is pending to rule out subacute/acute CVA. Neurology and pulmonary is on board. 10/04/2021 patient is awake alert and able to communicate. 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 Resting in the bed comfortably. Requiring oxygen at 15 L via nasal cannula. She'll be continued on dexamethasone Lovenox and multivitamins mentation and remains on Zosyn. Patient has been afebrile. Tolerating oral diet. No cough or sputum production. No nausea vomiting abdominal pain or diarrhea.. Laboratory data reviewed. 10/05/2021 patient is currently resting in the bed. Awake alert and oriented x3. Still requiring oxygen 15 L high flow. Chest x-ray showed similar left lung base and midlung airspace opacities. No evidence of pneumothorax. Patient is on dexamethasone and Lovenox and multivitamins. Patient is being current on Zosyn. Day 5. Patient is tolerating oral diet. D5 water has been discontinued and patient declines KVO. Encourage oral intake. Continue with insulin sliding scale for better blood sugar control. Continued on duo nebs and Symbicort. Neurology and pulmonary is on board. 10/06/2021 Patient is currently lying in the bed. Awake alert and oriented. No complaints of chest pain or worsening shortness of breath. Currently requiring 15 L oxygen via nasal cannula. Patient is maintained antibiotics involve Zosyn. Continue dexamethasone Lovenox subcu and multivitamin supplementation. Laboratory data showed WBC 11.0 hemoglobin 12.1 platelets 278 BUN 33 and creatinine 1.1 blood sugar is 268 10/07/2021 Patient is resting in the bed. Awake alert and oriented but lethargic and confused at times. Currently requiring 15 L oxygen via nasal cannula. Patient has been afebrile. Patient has been continued on antibiotics with normal Zosyn for possible aspiration. Laboratory data showed WBC 12.2 hemoglobin 12.0 platelets 240 neutrophils 10.02 BUN 32.4 and creatinine 1.0 and blood sugar is 140. Patient is also being continued on dexamethasone, Lovenox and Multivite's recommendation for COVID-19 pneumonia continue breathing treatments. Pulmonary is following. Chest x-ray today showed persistent low lung volumes with the left greater than right bilateral lower lung opacities consistent with COVID-19 infection. Redemonstrated. No significant change from 2 days earlier. REVIEW OF SYSTEMS CONSTITUTIONAL: Denies fever or chills. CARDIOVASCULAR: Denies chest pain, shortness of breath, orthopnea, PND or palpitations. RESPIRATORY: Denies cough. GASTROINTESTINAL: Denies abdominal pain, diarrhea, constipation, nausea or vomiting. MUSCULOSKELETAL: Denies myalgias. NEUROLOGIC: Denies numbness, tingling or weakness. ENDOCRINE: Denies fatigue, weight change, polydipsia or polyurina. GENITOURINARY: Denies burning, hematuria or urgency with micturation. HEMATOLOGIC: Denies history of anemia or bleeding. All inpatient medications were reviewed and appropriate changes in these medications as dictated in the interval history and assessment and plan. Objective - Vital Signs Vital signs: Vital Signs Temp 97.8 F 10/07/21 21:48 Pulse 80 10/07/21 21:48 Resp 20 10/07/21 21:48 BP 121/68 10/07/21 21:48 Pulse Ox 94 L 10/07/21 22:28 Intake & Output 10/07/21 10/07/21 10/08/21 06:59 18:59 06:59 Intake Total 610 Output Total 675 Balance -675 610 Intake: Intake, IV Titration 160 Amount Piperacillin-Tazobactam 3 100 .375 gm In Sodium Chloride 0.9% 100 ml @ 25 mls/hr IVPB Q8HR [facility] Rx# :[id number] Sodium Chloride 0.9% 1, 60 000 ml @ 20 mls/hr IV . Q24H [facility] Rx#:[id number] Oral 450 Output: Urine 675 Other: Voiding Method Indwelling Catheter Indwelling Catheter Indwelling Catheter - Exam PHYSICAL EXAMINATION: GENERAL: The patient is alert and oriented x1, mild respiratory distress. Well developed, well nourished. HEENT: Pupils are round and equally reacting to light. EOMI. No scleral icterus. No conjunctival pallor. Normocephalic, atraumatic. No pharyngeal erythema. No thyromegaly. CARDIOVASCULAR: S1 and S2 present. No murmurs, rubs, or gallops. PULMONARY: Coarse rhonchi bilateral ABDOMEN: Soft, nontender, nondistended, normoactive bowel sounds. No palpable organomegaly. MUSCULOSKELETAL: No joint swelling or deformity. EXTREMITIES: No cyanosis, clubbing, mild peripheral edema NEUROLOGICAL: Gross neurological examination did not reveal any focal deficits. SKIN: No rashes. - Labs CBC & Chem 7: 10/07/21 07:40 10/07/21 07:40 Labs: Abnormal Lab Results - Last 24 Hours (Table) 10/06/21 10/07/21 10/07/21 Range/Units 23:38 07:06 07:40 WBC 12.28 H (4.50-10.00) X 10*3/uL RBC 3.81 L (4.40-5.60) X 10*6/uL Hgb 12.0 L (13.0-17.0) g/dL Hct 38.3 L (39.6-50.0) % MCV 100.5 H (80.0-97.0) fL MCHC 31.3 L (32.0-37.0) g/dL Immature Gran # 0.10 H (0.00-0.04) X 10*3/uL Neutrophils # 10.02 H (1.80-7.70) X 10*3/uL Eosinophils # 0.01 L (0.04-0.35) X 10*3/uL BUN (9.0-27.0) mg/dL BUN/Creatinine Ratio (12.00-20.00) Ratio Glucose (70-110) mg/dL POC Glucose (mg/dL) 186 H 142 H (75-99) mg/dL Calcium (8.7-10.3) mg/dL 10/07/21 10/07/21 10/07/21 Range/Units 07:40 11:43 16:20 WBC (4.50-10.00) X 10*3/uL RBC (4.40-5.60) X 10*6/uL Hgb (13.0-17.0) g/dL Hct (39.6-50.0) % MCV (80.0-97.0) fL MCHC (32.0-37.0) g/dL Immature Gran # (0.00-0.04) X 10*3/uL Neutrophils # (1.80-7.70) X 10*3/uL Eosinophils # (0.04-0.35) X 10*3/uL BUN 32.4 H (9.0-27.0) mg/dL BUN/Creatinine Ratio 31.15 H (12.00-20.00) Ratio Glucose 140 H (70-110) mg/dL POC Glucose (mg/dL) 236 H 250 H (75-99) mg/dL Calcium 8.5 L (8.7-10.3) mg/dL 10/07/21 10/07/21 Range/Units 20:45 20:49 WBC (4.50-10.00) X 10*3/uL RBC (4.40-5.60) X 10*6/uL Hgb (13.0-17.0) g/dL Hct (39.6-50.0) % MCV (80.0-97.0) fL MCHC (32.0-37.0) g/dL Immature Gran # (0.00-0.04) X 10*3/uL Neutrophils # (1.80-7.70) X 10*3/uL Eosinophils # (0.04-0.35) X 10*3/uL BUN (9.0-27.0) mg/dL BUN/Creatinine Ratio (12.00-20.00) Ratio Glucose (70-110) mg/dL POC Glucose (mg/dL) 181 H 171 H (75-99) mg/dL Calcium (8.7-10.3) mg/dL Assessment and Plan Assessment: Assessment and plan -Acute hypoxic respiratory failure secondary to COVID 19 pneumonia; Patient doesn't qualify for a Remdesivir. on 15 L hi flow -Possible aspiration pneumonia -Acute renal failure possibly secondary to intravascular depletion and dehydration, resolved at this time -Altered Mental status secondary to toxic encephalopathy from Decadron, infection with a competent of her prolonged hospitalization leading to owner s, rule out subacute stroke, neurology consult, MRI pending -possibility of subacute to chronic CVA in the right anterior frontal lobe region -Type 2 diabetes mellitus with hyperglycemia, improving -Hypertension -Hyperlipidemia -transaminitis secondary to Covid 19 infection -Elevated D-Dimer secondary to Covid 19 infection -Elevated inflammatory markers of Covid 19 -Obstructive sleep apnea patient doesn't use any oxygen at home patient quit smoking many years ago DVT prophylaxis: Lovenox Plan MRI pending, Echo pending Continue neuro checks Continue IV antibiotics Continue decadron, zinc, vitamins, lovenox Continue bronchodilators Titrate oxygen as needed Present insulin regimen Continue all other supportive care Prognosis remains guarded for this patient Time with Patient: Greater than 30
[2021-10-08 11:54] LABS: Glucose,Whole Blood 162 mg/dL (75-99)
--- NOTE | 2021-10-08 15:09 | P.PN ---
Subjective Progress Note Date: 10/08/21 I am seeing the patient for the first time during this admission for neurological management. Please refer to Dr. Edwards's note for further details. The patient is seen at bedside and per nurse he is on high oxygen supply (15L of nasal canuli) and there are peroids patient would be confused and talking dumont gential. Patient sugar has been in range of 100-250's. Patient continues to be on Decadron 60mg IV daily. Objective - Vital Signs Vital signs: Vital Signs Temp 98.0 F 10/08/21 11:07 Pulse 86 10/08/21 11:07 Resp 20 10/08/21 11:07 BP 109/64 10/08/21 11:07 Pulse Ox 90 L 10/08/21 11:07 Intake & Output 10/07/21 10/08/21 10/08/21 18:59 06:59 18:59 Intake Total 610 Output Total 600 600 Balance 610 -600 -600 Intake: Intake, IV Titration 160 Amount Piperacillin-Tazobactam 3 100 .375 gm In Sodium Chloride 0.9% 100 ml @ 25 mls/hr IVPB Q8HR [facility] Rx# :[id number] Sodium Chloride 0.9% 1, 60 000 ml @ 20 mls/hr IV . Q24H [facility] Rx#:[id number] Oral 450 Output: Urine 600 600 Other: Voiding Method Indwelling Catheter Indwelling Catheter Indwelling Catheter # Voids 700 - Exam GENERAL: The patient is lying in bed and is not in acute distress. NEUROLOGICAL: Higher mental function: The patient is awake, alert, oriented to self, place and time. Patient is following commands. No aphasia and no neglect. Cranial nerves: The pupils are round, equal and reactive to light and accommodation. Visual baxter are full to confrontation throughout. Extraocular movement is intact no nystagmus is noted. The facial strength is mild left lower facial weakness. No dysarthria is noted. Shoulder shrug is normal bilaterally. Motor: The strength is normal throughout. Normal tone and bulk. Cerebellum: Normal finger to nose bilaterally. Sensation: Sensation is normal to touch throughout. WORK-UP: CT head showed possibility of the remote stroke. Mass lesion appears less likely. Carotid Doppler revealed no evidence of hemodynamically significant stenosis. Antegrade flow in the left vertebral artery. Right vertebral artery was not seen. Hemoglobin A1c 7.7, B12 568, folate > 20, and TSH 1.82. Lipid panel with cholesterol 124, LDL 55, HDL 30 and triglycerides 190. 2D echo per Cardio [facility] (Esme): EF 50-55% and no abnormality appreciated. Pending official report. - Labs CBC & Chem 7: 10/07/21 07:40 10/07/21 07:40 Labs: Abnormal Lab Results - Last 24 Hours (Table) 10/07/21 10/07/21 10/07/21 Range/Units 16:20 20:45 20:49 POC Glucose (mg/dL) 250 H 181 H 171 H (75-99) mg/dL 10/08/21 10/08/21 Range/Units 07:11 11:52 POC Glucose (mg/dL) 108 H 162 H (75-99) mg/dL Assessment and Plan Assessment: * Abnormal computed tomography scan of the head, with possibility of subacute to chronic CVA in the right anterior frontal lobe region. Mass lesion less likely. * Encephalopathy due to multifactorial Hypoxic encephalopathy from COVID-19 pneumonia, medication (steroid) and component metabolic encephalopathy---currently mentation is normal. * Delerium due to above * Acute Covid pneumonia. * History of slurred speech since patient underwent cervical fusion 2 years ago. * Diabetes Plan: * Patient's slurred speech is chronic since his cervical fusion, but has got worse in the last 1-[address] head showed possibility of the remote st roke. Mass lesion appears less likely. Await MRI of the brain with and without contrast. Dr. Edwards spoke with the patient's on the phone, and discussed about MRI and she stated that he had previous "all kinds of MRIs" done at [facility] and wants to have it done at [facility] after discharge, so it could be compared with the previous studies. * Continue aspirin 325 mg daily. Started on Lipitor 10mg qhs for secondary stroke prophylaxis. * Pending official 2D echo report but per Cardiology N.P. she stated it was unremarkable. * Pulmonary team is on board. * PT, OT and MINISTER OF RELIGION are consulted. * Will defer rest of medical management to the primary team. * For DVT prophylaxis: On Enoxaparin 40mg bid. * Patient needs to follow-up with neurologist within 1-2 weeks as outpatietn. UPDATE: Nurse notified me that patient's called and now considering of proceeding with MRI Brain. The nurse will call her to confirm her final wishes. If she chooses not to pursue, then no further neurological work-up. The plan is discussed with his nurse. Marcelino Reynoso M.D. Neuro-Hospitalist Time with Patient: Less than 30
[2021-10-08 17:05] LABS: Glucose,Whole Blood 233 mg/dL (75-99)
--- NOTE | 2021-10-08 17:13 | P.PN ---
Subjective Progress Note Date: 10/08/21 Principal diagnosis: Dyspnea This is a 76-year-old male patient who follows with the [facility] system as his primary care provider. He has a history of chronic obstructive pulmonary disease, hypertension, hyperlipidemia, diabetes mellitus, obstructive sleep apnea maintained on CPAP at a pressure of 11 cm of water with C-Flex of 3. He has a 2 week history of increasing shortness of breath, cough and congestion. He presented here to the emergency room yesterday for the same. X-ray reveals bilateral patchy infiltrates left greater than right consistent with COVID-19 pneumonia. White count 8.2. Hemoglobin 12.0. D-dimer 2.07. Sodium 140. Potassium 4.0. Creatinine 1.4. AST 85. ALT 50. LDH 1625. C-reactive protein 38.4. Pro-calcitonin 4.89. [place] virus by PCR positive. He's been initiated on Decadron, vitamin supplements. If he did receive Lovenox 100 mg subcu once yesterday. Normal saline at 75 ML's per hour. He is seen today in consultation in the emergency department. He is currently sitting up awake and alert. Somewhat slow to respond. Somewhat of a poor historian. His daughter is present in the room in supplies most of the information. Is currently maintaining O2 saturations in the low 90s on 6 L high flow nasal cannula. He's been afebrile. Slightly tachycardic. Hypertensive. On 09/25/2021 patient seen in follow-up on medical surgical floor, he is a poor historian, he is currently sitting up in the recliner, he is currently on 8 L of oxygen and his oxygen demand has increased compared to yesterday when he was on 6 L per high flow nasal cannula. Pulse ox is currently 88-89%, he is afebrile, remains hypertensive with blood pressure in the 180s over 107, with a mean of 133 bpm. D-dimer came back elevated at 2.07, lower extremity Dopplers showed no evidence of DVTs in both. His been afebrile, does have a congestive cough, overall his mentation is confused and sleepy. He is currently on the Decadron 6 mg daily, he is on inhaled bronchodilators. Cough is congested, patient does have underlying history of COPD, we will add empiric antibiotics today. We'll obtain follow up pro-calcitonin level. Initial pro-calcitonin level on admission was elevated to 4.89. On 09/26/2021 patient seen in follow-up medical surgical floor. He is confused, but his responsive, he denies any acute distress. He was taken off the BiPAP support this morning, he is currently on 15 L high flow oxygen, and his pulse ox is 89-91%, he removes his oxygen at times, desaturates, becomes more confused. Low-grade fevers in the last 24 hours with a temp of 99.5F. Lung sounds reveal diffuse coarse inspiratory crackles throughout the lung baxter. No complaints of chest pain, occasional cough, no phlegm production. His chest x-ray today shows stable bibasilar and left peripheral COVID infiltrates, and 8 mm nodular density at the right lower lung with a recommendation of follow-up CT scanning of the chest to exclude underlying pulmonary nodule. Patient continues on Rocephin and azithromycin for empiric antibiotic coverage, he is on Decadron 6 mg daily, he is on prophylactic dose of Lovenox. Today's labs have been reviewed, his white blood cell count 8.12, hemoglobin is 12.4, serum sodium is 147, potassium is 4.0, chloride is 111, B1 is 32, creatinine is 1.2, ferritin level is improving and is down to 1227, LDH is down to 477, improved and CRP is also improving and is down to 7.8, follow up pro-calcitonin was improved and was down to 1.53. On 09/27/2021 patient seen in follow-up on medical surgical floor. He is curr ently sleeping, he is on BiPAP support, which he looks very comfortable on, breathing comfortably, BiPAP settings of 12 and 6 and FiO2 of 70%, his pulse ox is Usually better on BiPAP at 95%. On 15 L per high flow nasal cannula his pulse ox is 186%, afebrile, hemodynamically stable, still confused, not agitated. His last chest x-ray from 09/25/2001 showed stable bibasilar and left peripheral COVID infiltrates. Patient was also suspected to have bacteria superinfection, he was placed on azithromycin and Rocephin, his pro-calcitonin was improving, and is down to 0.73 on today's labs from the original value of 4.89 on 09/23/2021. White count is 8.4, hemoglobin is 0.8, his d-dimer is 3.19, sodium is 146, patient remains on D5W at 50 ML per hour, potassium 3.6, B1 is 29, creatinine is 1.His LDH is slightly improved and is down to 1164, CRP is 12.1, improved since admission. Appears to be in no acute distress. Appetite is poor, he is only consuming about 25% of his meals. On 09/29/2021 patient seen in follow-up on medical surgical floor. Patient remains confused, but more awake on today's exam, he has been alternating between BiPAP with pressures of 12.6 and FiO2 of 70% and 15 L high flow oxygen. Pulse ox is 91-92%, his been afebrile. He is only oriented to self, very disoriented to place and time, confused. Does not appear to be in respiratory distress. He does have a cough, which is congested and his mouth has dried up phlegm, oral mucous membranes are extremely dry. Patient has had very poor oral intake related to being BiPAP dependent. Currently tolerating high flow nasal cannula much better, although still remains very confused. But at this point probably able to tolerate some oral feedings. Lung sounds reveal diffuse rhonchi. Needs pulmonary toileting and aspiration precautions. Patient's family was in yesterday to see him for [place], and they were concerned about his altered mentation. We will obtain brain CT without today. Remains on antibiotics with azithromycin and Rocephin. He remains on D5W at a rate of 50 ML per hour, Decadron 6 mg daily and Lovenox 40 mg twice daily. His last d- dimer from yesterday was up trending was up to 6.07 at which point his Lovenox dose has been increased to twice daily. His serum sodium has normalized and was down to 144 on yesterday's labs. BUN is 28 creatinine is 1. Inflammatory markers were improving since admission and LDH was down to 413, and CRP was 8.6. Procalcitonin was down to 0.73 On 09/30/2021 patient seen in follow-up on medical surgical floor. he remains confused, but awake and alert, but his speech does not make sense. No unilateral weakness noted. Still significantly altered mentation. This morning he is on Airvo at 12/6 and FiO2 of 50%, his pulse ox is 91-95%. Today he has a strong effective cough, has a bit of a chest congestion, congested cough. Afebrile, hemodynamically he is stable. He asked to have the BiPAP mask removed, and he was placed on 15 L per high flow nasal cannula, breathing fairly comfortably. Yesterday's chest x-ray showed worsening left lower lobe consolidation with minimal infiltration through the right midlung. Patient is currently on a combination of azithromycin and Rocephin, his last pro-calcitonin was down to 0.73. Yesterday CT of the brain was obtained in view of altered mental status, and he was found to have a focal area of low attenuation in the right frontal lobe, stat neurology evaluation was requested, an MRI of the brain with and without to rule out acute CVA was recommended. However a subacute right frontal lobe CVA is suspected. Venous Doppler yesterday was negative for bilateral DVT, today's d-dimer is 3.92, serum sodium has normalized and is down to 142, potassium is 4.2, BUN is 29.8, creatinine is 1, but sugars in the 170s range, AST 39, ALT is 54, LDH is 419, CRP is 4.6. Vital signs show no evidence of fever, patient is in sinus mechanism with a controlled rate, blood pressure stable 130/86. Currently patient remains on D5W at a rate of 50 ML per hour, oral intake has been limited still. However he is able to take in some Ensure with supervision and assistance. He continues on multivitamins, he continues on Decadron. On 10/01/2021 patient seen in follow-up on medical surgical floor. He is resting comfortably in bed, he continues to be confused, although somewhat improved, he was able to tell nursing staff he was in the hospital, and that the month was September. He is not using BiPAP support, he is currently on 15 L of oxygen per high flow nasal cannula his pulse ox is 90%, breathing is nonlabored, lung sounds are positive for diminished breath sounds with some scattered crackles. No cough, no chest pain, while signs have been stable patient has been afebrile. He continues on Decadron 6 mg daily, Lovenox 40 mg twice daily, he is on Zosyn for empiric antibiotic coverage, today's labs have been reviewed, white blood cell count is 13.6, hemoglobin is 13, d-dimer was improving on yesterday's labs and was down to 3.92, today's level still pending, sodium is 141, potassium is 6.0, and this has hemolyzed, BUN is 28 and creatinine is 1, pro-calcitonin level is pending. On the 10/07/2021 patient seen in follow-up on medical surgical floor, he remains on high flow oxygen, currently on 15 L and his pulse ox is 92%, he is laying in bed, not clear if his been up with physical therapy in the chair, his speech is better, he is awake and alert, he is answering questions appropr iately, he is talking about his , he knows he is in [place], he knew he was in the hospital. His been afebrile, vital signs have been stable, breathing is nonlabored, lung sounds are positive for a few scattered rhonchi, patient remains on Zosyn for possibility of aspiration. Today's labs have been reviewed his white blood cell count is fairly stable over last several days at 12.28, hemoglobin is 12, his platelet count is 240, electrolytes were unremarkable, BUN was 32, and creatinine was 1. His last set of inflammatory markers from yesterday showed LDH of 268, and CRP of 0.30, significantly improved. Patient continues on Decadron 6 mg daily, he continues on Diflucan, and Zosyn as mentioned above he is on Symbicort and Spiriva in addition to albuterol. His chest x-ray today showing persistent low lung volumes with left greater than right bilateral lower lung opacities consistent with COVID-19 infection. No significant change from 2 days earlier. on 10/08/2021 patient seen in follow-up on medical surgical floor. He is currently awake and alert, does not appear to be in any acute distress, breathing currently, he still remains a high flow oxygen although we were able t o cut back to 13 L and his pulse ox is around 90-93%. According to the nursing staff patient was up to the commode with assistance, he is generally weak, during my evaluation patient was having a hard time even sitting up in bed, cannot support his own posture. He needs continue skilled physical therapy. Patient has poor balance, decreased strength, decreased endurance and poor cognition and safety awareness according to the PT progress notes. denies any worsening dyspnea, no chest pain, his been afebrile, vital signs have been stable, he is on a modified diet, however she requires assistance and supervision with meals. Objective - Vital Signs Vital signs: Vital Signs Temp 97.6 F 10/08/21 14:00 Pulse 99 10/08/21 14:00 Resp 19 10/08/21 14:00 BP 95/62 10/08/21 14:00 Pulse Ox 92 L 10/08/21 14:00 Intake & Output 10/07/21 10/08/21 10/08/21 18:59 06:59 18:59 Intake Total 610 Output Total 600 600 Balance 610 -600 -600 Intake: Intake, IV Titration 160 Amount Piperacillin-Tazobactam 3 100 .375 gm In Sodium Chloride 0.9% 100 ml @ 25 mls/hr IVPB Q8HR [facility] Rx# :[id number] Sodium Chloride 0.9% 1, 60 000 ml @ 20 mls/hr IV . Q24H [facility] Rx#:[id number] Oral 450 Output: Urine 600 600 Other: Voiding Method Indwelling Catheter Indwelling Catheter Indwelling Catheter # Voids 700 - Exam GENERAL EXAM: More awake, 76-year-old white male, currently on 13 L of oxygen with pulse ox of 92%, HEAD: Normocephalic/atraumatic. EYES: Normal reaction of pupils, equal size. Conjunctiva pink, sclera white. NOSE: Clear with pink turbinates. MOUTH: dry oral mucous membranes, with dried oral secretions THROAT: No erythema or exudates. NECK: No masses, no JVD, no thyroid enlargement, no adenopathy. CHEST: No chest wall deformity. Symmetrical expansion. LUNGS: Equal air entry with diffuse crackles, diffuse rhonchi, patient has a congested cough CVS: Regular rate and rhythm, normal S1 and S2, no gallops, no murmurs, no rubs ABDOMEN: Soft, nontender. No hepatosplenomegaly, normal bowel sounds, no guarding or rigidity. EXTREMITIES: No clubbing, no edema, no cyanosis, 2+ pulses and upper and lower extremities. MUSCULOSKELETAL: Muscle strength and tone normal. SPINE: No scoliosis or deformity SKIN: No rashes CENTRAL NERVOUS SYSTEM: Confused, but appears to be more alert, currently on 15 l/min. - Labs CBC & Chem 7: 01/03/22 07:40 10/07/21 07:40 Labs: Abnormal Lab Results - Last 24 Hours (Table) 10/07/21 10/07/21 10/08/21 Range/Units 20:45 20:49 07:11 POC Glucose (mg/dL) 181 H 171 H 108 H (75-99) mg/dL 10/08/21 10/08/21 Range/Units 11:52 17:00 POC Glucose (mg/dL) 162 H 233 H (75-99) mg/dL Assessment and Plan Plan: Assessment: #1. Acute hypoxic respiratory failure related to acute COVID-19 pneumonia, possibility of underlying pneumonia is also considered based on elevated pro- calcitonin level of 4.89. Patient presented to the hospital on 09/23/2021 with 2 weeks of symptoms, he was outside the window for Remdesivir. He is not vaccinated against COVID-19. Today on 10/08/2021 patient is on high flow oxygen at 13 L #2. Elevated pro-calcitonin level, suggesting possibility of underlying bacterial infection, will cover with the combination of Rocephin and azithromycin, improving is down to 0.17, antibiotics have been discontinued, crit the patient just remains on Diflucan 100 mg daily. #3. Acute kidney injury related to dehydration and ATN, improved and resolved with IV hydration #4. Diabetes mellitus type 2 #5. Underlying history of sleep apnea on CPAP #6. Hypertension #7. Hyperlipidemia #8. Elevated d-dimer, with no evidence of DVT on lower extremity Dopplers #9. Hypernatremia, related to poor oral intake, improved with IV hydration with D5W #10. Pulmonary nodule, measuring 8 mm projecting at the right lower lobe, will need to be followed up on the CT of the chest with contrast #11. 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, CT of the brain without contrast on 09/28/2021 showed focal area of low attenuation in the right frontal lobe with abscess of the rush-white matter concerning for rush-white matter junction mass/edema or CVA, neurology is following #12. Altered mental status, related to the above, and subacute right frontal lobe CVA Plan: Continue weaning FiO2 to maintain O2 saturations at or above 90% currently down to 13 L May use BiPAP support intermittently patient needs to get up to the chair Continue encouraging incentive spirometry use Continue current dose Decadron, and Lovenox Patient has completed his antibiotics Vital signs have been stable, no worsening dyspnea, bronchial sternal level has significantly improved Continue with oral Diflucan We'll continue to follow his clinical course I performed a history & physical examination of the patient and discussed their management with my nurse practitioner, Terri Key. I reviewed the nurse practitioner's note and agree with the documented findings and plan of care. Lung sounds are positive for dim breath sounds throughout the lung baxter. The findings and the impression was discussed with the patient. I attest to the documentation by the nurse practitioner. Time with Patient: Less than 30
[2021-10-08] MEDS: SODIUM CHLORIDE 0.9% 1,000 ML IV SCH (19:16)
[2021-10-08 20:29] LABS: Glucose,Whole Blood 314 mg/dL (75-99)
[2021-10-08] MEDS: ATORVASTATIN 10 MG TAB PO SCH (21:37)
[2021-10-08] MEDS: LATANOPROST 0.005% OPHTH DROPS 2.5 ML BTL BOTH EYES SCH (21:38)
[2021-10-09 07:32] LABS: Glucose,Whole Blood 113 mg/dL (75-99)
[2021-10-09] MEDS: INSULIN ASPART (NovoLOG) 100 UNIT/ML VIAL SQ SCH ×7 (07:50→19:51)
[2021-10-09] MEDS: DEXAMETHASONE SOD PHOSPHATE 10 MG/ML 1 ML VIAL IVP SCH (07:58)
[2021-10-09] MEDS: ENOXAPARIN 40 MG/0.4 ML SYRINGE SQ SCH ×2 (07:58→19:51)
[2021-10-09] MEDS: LIDOCAINE 5% PATCH TOPICAL SCH (07:59)
[2021-10-09] MEDS: carvediloL 12.5 MG TAB PO SCH ×2 (07:59→17:17)
[2021-10-09] MEDS: ASCORBIC ACID 500 MG TAB PO SCH (07:59)
[2021-10-09] MEDS: amLODIPine 5 MG TAB PO SCH (07:59)
[2021-10-09] MEDS: CHOLECALCIFEROL 125 MCG (5000 IU) TABLET PO SCH (07:59)
[2021-10-09] MEDS: GABAPENTIN 300 MG CAP PO SCH ×3 (07:59→19:51)
[2021-10-09] MEDS: ZINC SULFATE 220 MG CAP PO SCH (07:59)
[2021-10-09] MEDS: FLUCONAZOLE 100 MG TAB PO SCH (07:59)
[2021-10-09] MEDS: TAMSULOSIN 0.4 MG CAP.ER.24H PO SCH (07:59)
[2021-10-09] MEDS: ASPIRIN 325 MG TAB PO SCH (07:59)
[2021-10-09] MEDS: ALBUTEROL HFA INHALER INHALATION SCH ×4 (08:54→21:28)
[2021-10-09] MEDS: SYMBICORT 80-4.5 MCG INHALER INHALATION SCH ×2 (08:54→21:28)
[2021-10-09] MEDS: TIOTROPIUM 2.5 MCG INHALER INHALATION SCH (08:55)
--- NOTE | 2021-10-09 11:50 | MR ---
EXAMINATION TYPE: MR brain wo/w con DATE OF EXAM: 10/09/2021 COMPARISON: 09/29/2021 CT brain HISTORY: See CT results, history of altered mental status, abnormal CT findings. CONTRAST: Performed utilizing 11 mL intravenous Gadavist gadolinium contrast. TECHNIQUE: Multiplanar, multiecho imaging on a 3.0 Toma magnet is performed through the brain. Stud y is performed within 24 hours of arrival to the hospital. The craniovertebral junction is normal. The pituitary is normal. Diffusion-weighted imaging is performed. No abnormal hyperintensity is present to suggest an acute i ntracranial infarct or acute ischemic change. Periventricular white matter and deep white matter hyperintensities present on T2 and inversion recov lawson weighted sequences. Findings are nonspecific but can be compatible with chronic white matter isch emic type changes. White matter changes extend across the cortical margin in the left frontal parietal region correspond ing to the abnormality on CT examination. No abnormal diffusion is evident within this region. This a adrianne is hyperintense on inversion recovery suggesting old infarct. Ventricles and sulci are prominent for the patient age. No abnormal enhancement is evident. Fluid is within the left mastoid air cells. Correlate for acute left mastoiditis. There is opacificat ion to right frontal sinuses with an air-fluid level. Some mucosal thickening in ethmoid air cells. M ucosal thickening is within maxillary sinuses. IMPRESSIONS: 1. Chronic appearing periventricular and deep white matter ischemic-type changes. 2. Atrophy. 3. Correlate for left mastoiditis and acute right frontal sinusitis. 4. Old small infarct in the right frontal parietal region corresponding to the hypodense area on CT e xam.
[2021-10-09 12:19] LABS: Glucose,Whole Blood 185 mg/dL (75-99)
--- NOTE | 2021-10-09 13:04 | ECHOF ---
Referral Reason:possible cva MEASUREMENTS -------- HEIGHT: 0.0 cm WEIGHT: 0.0 kg BP: RVIDd: 2.4 cm (< 3.3) IVSd: 1.3 cm (0.6 - 1.1) LVIDd: 4.2 cm (3.9 - 5.3) LVPWd: 1.2 cm (0.6 - 1.1) IVSs: 1.6 cm LVIDs: 2.7 cm LVPWs: 1.6 cm FINDINGS -------- Sinus rhythm. Limited Study due to Covid exposure. Overall left ventricular systolic function is low-normal with, an EF between 50 - 55 %. 5.0mg OF Lumason UTLIZED: 2 OR MORE WALL SEGMENTS NOT VISUALIZED. Echo free space represents a pericardial fat pad. CONCLUSIONS -------- 1. Limited Study due to Covid exposure. 2. Overall left ventricular systolic function is low-normal with, an EF between 50 - 55 %. 3. 5.0mg OF Lumason UTLIZED: 2 OR MORE WALL SEGMENTS NOT VISUALIZED. 4. Echo free space represents a pericardial fat pad. [employer]ORT INTERNS[employer]: Alesia Crowley RDCS
--- NOTE | 2021-10-09 14:49 | P.PN ---
Subjective Progress Note Date: 10/09/21 Principal diagnosis: Dyspnea This is a 76-year-old male patient who follows with the [facility] system as his primary care provider. He has a history of chronic obstructive pulmonary disease, hypertension, hyperlipidemia, diabetes mellitus, obstructive sleep apnea maintained on CPAP at a pressure of 11 cm of water with C-Flex of 3. He has a 2 week history of increasing shortness of breath, cough and congestion. He presented here to the emergency room yesterday for the same. X-ray reveals bilateral patchy infiltrates left greater than right consistent with COVID-19 pneumonia. White count 8.2. Hemoglobin 12.0. D-dimer 2.07. Sodium 140. Potassium 4.0. Creatinine 1.4. AST 85. ALT 50. LDH 1625. C-reactive protein 38.4. Pro-calcitonin 4.89. [place] virus by PCR positive. He's been initiated on Decadron, vitamin supplements. If he did receive Lovenox 100 mg subcu once yesterday. Normal saline at 75 ML's per hour. He is seen today in consultation in the emergency department. He is currently sitting up awake and alert. Somewhat slow to respond. Somewhat of a poor historian. His daughter is present in the room in supplies most of the information. Is currently maintaining O2 saturations in the low 90s on 6 L high flow nasal cannula. He's been afebrile. Slightly tachycardic. Hypertensive. On 09/25/2021 patient seen in follow-up on medical surgical floor, he is a poor historian, he is currently sitting up in the recliner, he is currently on 8 L of oxygen and his oxygen demand has increased compared to yesterday when he was on 6 L per high flow nasal cannula. Pulse ox is currently 88-89%, he is afebrile, remains hypertensive with blood pressure in the 180s over 107, with a mean of 133 bpm. D-dimer came back elevated at 2.07, lower extremity Dopplers showed no evidence of DVTs in both. His been afebrile, does have a congestive cough, overall his mentation is confused and sleepy. He is currently on the Decadron 6 mg daily, he is on inhaled bronchodilators. Cough is congested, patient does have underlying history of COPD, we will add empiric antibiotics today. We'll obtain follow up pro-calcitonin level. Initial pro-calcitonin level on admission was elevated to 4.89. On 09/26/2021 patient seen in follow-up medical surgical floor. He is confused, but his responsive, he denies any acute distress. He was taken off the BiPAP support this morning, he is currently on 15 L high flow oxygen, and his pulse ox is 89-91%, he removes his oxygen at times, desaturates, becomes more confused. Low-grade fevers in the last 24 hours with a temp of 99.5F. Lung sounds reveal diffuse coarse inspiratory crackles throughout the lung baxter. No complaints of chest pain, occasional cough, no phlegm production. His chest x-ray today shows stable bibasilar and left peripheral COVID infiltrates, and 8 mm nodular density at the right lower lung with a recommendation of follow-up CT scanning of the chest to exclude underlying pulmonary nodule. Patient continues on Rocephin and azithromycin for empiric antibiotic coverage, he is on Decadron 6 mg daily, he is on prophylactic dose of Lovenox. Today's labs have been reviewed, his white blood cell count 8.12, hemoglobin is 12.4, serum sodium is 147, potassium is 4.0, chloride is 111, B1 is 32, creatinine is 1.2, ferritin level is improving and is down to 1227, LDH is down to 477, improved and CRP is also improving and is down to 7.8, follow up pro-calcitonin was improved and was down to 1.53. On 09/27/2021 patient seen in follow-up on medical surgical floor. He is curr ently sleeping, he is on BiPAP support, which he looks very comfortable on, breathing comfortably, BiPAP settings of 12 and 6 and FiO2 of 70%, his pulse ox is Usually better on BiPAP at 95%. On 15 L per high flow nasal cannula his pulse ox is 186%, afebrile, hemodynamically stable, still confused, not agitated. His last chest x-ray from 09/25/2001 showed stable bibasilar and left peripheral COVID infiltrates. Patient was also suspected to have bacteria superinfection, he was placed on azithromycin and Rocephin, his pro-calcitonin was improving, and is down to 0.73 on today's labs from the original value of 4.89 on 09/23/2021. White count is 8.4, hemoglobin is 0.8, his d-dimer is 3.19, sodium is 146, patient remains on D5W at 50 ML per hour, potassium 3.6, B1 is 29, creatinine is 1.His LDH is slightly improved and is down to 1164, CRP is 12.1, improved since admission. Appears to be in no acute distress. Appetite is poor, he is only consuming about 25% of his meals. On 09/29/2021 patient seen in follow-up on medical surgical floor. Patient remains confused, but more awake on today's exam, he has been alternating between BiPAP with pressures of 12.6 and FiO2 of 70% and 15 L high flow oxygen. Pulse ox is 91-92%, his been afebrile. He is only oriented to self, very disoriented to place and time, confused. Does not appear to be in respiratory distress. He does have a cough, which is congested and his mouth has dried up phlegm, oral mucous membranes are extremely dry. Patient has had very poor oral intake related to being BiPAP dependent. Currently tolerating high flow nasal cannula much better, although still remains very confused. But at this point probably able to tolerate some oral feedings. Lung sounds reveal diffuse rhonchi. Needs pulmonary toileting and aspiration precautions. Patient's family was in yesterday to see him for [place], and they were concerned about his altered mentation. We will obtain brain CT without today. Remains on antibiotics with azithromycin and Rocephin. He remains on D5W at a rate of 50 ML per hour, Decadron 6 mg daily and Lovenox 40 mg twice daily. His last d- dimer from yesterday was up trending was up to 6.07 at which point his Lovenox dose has been increased to twice daily. His serum sodium has normalized and was down to 144 on yesterday's labs. BUN is 28 creatinine is 1. Inflammatory markers were improving since admission and LDH was down to 413, and CRP was 8.6. Procalcitonin was down to 0.73 On 09/30/2021 patient seen in follow-up on medical surgical floor. he remains confused, but awake and alert, but his speech does not make sense. No unilateral weakness noted. Still significantly altered mentation. This morning he is on Airvo at 12/6 and FiO2 of 50%, his pulse ox is 91-95%. Today he has a strong effective cough, has a bit of a chest congestion, congested cough. Afebrile, hemodynamically he is stable. He asked to have the BiPAP mask removed, and he was placed on 15 L per high flow nasal cannula, breathing fairly comfortably. Yesterday's chest x-ray showed worsening left lower lobe consolidation with minimal infiltration through the right midlung. Patient is currently on a combination of azithromycin and Rocephin, his last pro-calcitonin was down to 0.73. Yesterday CT of the brain was obtained in view of altered mental status, and he was found to have a focal area of low attenuation in the right frontal lobe, stat neurology evaluation was requested, an MRI of the brain with and without to rule out acute CVA was recommended. However a subacute right frontal lobe CVA is suspected. Venous Doppler yesterday was negative for bilateral DVT, today's d-dimer is 3.92, serum sodium has normalized and is down to 142, potassium is 4.2, BUN is 29.8, creatinine is 1, but sugars in the 170s range, AST 39, ALT is 54, LDH is 419, CRP is 4.6. Vital signs show no evidence of fever, patient is in sinus mechanism with a controlled rate, blood pressure stable 130/86. Currently patient remains on D5W at a rate of 50 ML per hour, oral intake has been limited still. However he is able to take in some Ensure with supervision and assistance. He continues on multivitamins, he continues on Decadron. On 10/01/2021 patient seen in follow-up on medical surgical floor. He is resting comfortably in bed, he continues to be confused, although somewhat improved, he was able to tell nursing staff he was in the hospital, and that the month was September. He is not using BiPAP support, he is currently on 15 L of oxygen per high flow nasal cannula his pulse ox is 90%, breathing is nonlabored, lung sounds are positive for diminished breath sounds with some scattered crackles. No cough, no chest pain, while signs have been stable patient has been afebrile. He continues on Decadron 6 mg daily, Lovenox 40 mg twice daily, he is on Zosyn for empiric antibiotic coverage, today's labs have been reviewed, white blood cell count is 13.6, hemoglobin is 13, d-dimer was improving on yesterday's labs and was down to 3.92, today's level still pending, sodium is 141, potassium is 6.0, and this has hemolyzed, BUN is 28 and creatinine is 1, pro-calcitonin level is pending. On the 10/07/2021 patient seen in follow-up on medical surgical floor, he remains on high flow oxygen, currently on 15 L and his pulse ox is 92%, he is laying in bed, not clear if his been up with physical therapy in the chair, his speech is better, he is awake and alert, he is answering questions appropr iately, he is talking about his , he knows he is in [place], he knew he was in the hospital. His been afebrile, vital signs have been stable, breathing is nonlabored, lung sounds are positive for a few scattered rhonchi, patient remains on Zosyn for possibility of aspiration. Today's labs have been reviewed his white blood cell count is fairly stable over last several days at 12.28, hemoglobin is 12, his platelet count is 240, electrolytes were unremarkable, BUN was 32, and creatinine was 1. His last set of inflammatory markers from yesterday showed LDH of 268, and CRP of 0.30, significantly improved. Patient continues on Decadron 6 mg daily, he continues on Diflucan, and Zosyn as mentioned above he is on Symbicort and Spiriva in addition to albuterol. His chest x-ray today showing persistent low lung volumes with left greater than right bilateral lower lung opacities consistent with COVID-19 infection. No significant change from 2 days earlier. on 10/08/2021 patient seen in follow-up on medical surgical floor. He is currently awake and alert, does not appear to be in any acute distress, breathing currently, he still remains a high flow oxygen although we were able t o cut back to 13 L and his pulse ox is around 90-93%. According to the nursing staff patient was up to the commode with assistance, he is generally weak, during my evaluation patient was having a hard time even sitting up in bed, cannot support his own posture. He needs continue skilled physical therapy. Patient has poor balance, decreased strength, decreased endurance and poor cognition and safety awareness according to the PT progress notes. denies any worsening dyspnea, no chest pain, his been afebrile, vital signs have been stable, he is on a modified diet, however she requires assistance and supervision with meals. On 10/09/2021 patient seen in follow-up on medical surgical floor. He is currently on the commode, trying to have a bowel movement, he requires extensive assistance to get up on a commode, but tolerated activity fairly well, currently on 13 L of oxygen with a pulse ox of 98%, breathing is very stable, no cough, no chest pain, we'll drop the FiO2 down to 8 L and monitor his pulse oximetry, vital signs have been stable, his been afebrile, his inflammatory markers were improving on the labs from 10/06/2021. Neurologically he seems to be improving, he was able to finally travel downstairs to the MRI department to complete his brain MRI, which showed chronic appearing periventricular and deep white matter ischemic type changes, atrophy, left mastoiditis and acute right frontal sinusitis, old small infarct in the right frontal parietal region corresponding to the hypodense area on the CT exam of the brain. Patient currently remains on Decadron 6 daily, he is on inhaled bronchodilators with Symbicort and Spiriva is on Lovenox 40 mg twice daily. Objective - Vital Signs Vital signs: Vital Signs Temp 96.9 F L 10/09/21 06:24 Pulse 80 10/09/21 06:24 Resp 22 10/09/21 06:24 BP 122/77 10/09/21 06:24 Pulse Ox 98 10/09/21 06:24 Intake & Output 10/08/21 10/09/21 10/09/21 18:59 06:59 18:59 Intake Total 240 Output Total 1400 Balance -1400 240 Intake: Oral 240 Output: Urine 1400 Other: Voiding Method Indwelling Catheter Indwelling Catheter Indwelling Catheter # Voids 700 - Exam GENERAL EXAM: More awake, 76-year-old white male, currently on 13 L of oxygen with pulse ox of 98%, patient is currently up to the commode HEAD: Normocephalic/atraumatic. EYES: Normal reaction of pupils, equal size. Conjunctiva pink, sclera white. NOSE: Clear with pink turbinates. MOUTH: dry oral mucous membranes, with dried oral secretions THROAT: No erythema or exudates. NECK: No masses, no JVD, no thyroid enlargement, no adenopathy. CHEST: No chest wall deformity. Symmetrical expansion. LUNGS: Equal air entry with a few scattered crackles CVS: Regular rate and rhythm, normal S1 and S2, no gallops, no murmurs, no rubs ABDOMEN: Soft, nontender. No hepatosplenomegaly, normal bowel sounds, no guarding or rigidity. EXTREMITIES: No clubbing, no edema, no cyanosis, 2+ pulses and upper and lower extremities. MUSCULOSKELETAL: Muscle strength and tone normal. SPINE: No scoliosis or deformity SKIN: No rashes CENTRAL NERVOUS SYSTEM: Confused, but appears to be more alert, currently on 13 l/min. - Labs CBC & Chem 7: 10/07/21 07:40 10/07/21 07:40 Labs: Abnormal Lab Results - Last 24 Hours (Table) 10/08/21 10/08/21 10/09/21 Range/Units 17:00 20:28 07:30 POC Glucose (mg/dL) 233 H 314 H 113 H (75-99) mg/dL 10/09/21 Range/Units 12:17 POC Glucose (mg/dL) 185 H (75-99) mg/dL Assessment and Plan Plan: Assessment: #1. Acute hypoxic respiratory failure related to acute COVID-19 pneumonia, possibility of underlying pneumonia is also considered based on elevated pro- calcitonin level of 4.89. Patient presented to the hospital on 09/23/2021 with 2 weeks of symptoms, he was outside the window for Remdesivir. He is not vaccinated against COVID-19. Today on 10/08/2021 patient is on high flow oxygen at 13 L #2. Elevated pro-calcitonin level, suggesting possibility of underlying bacterial infection, patient was given Rocephin and azithromycin, and pro- calcitonin improved is down to 0.17, antibiotics have been discontinued, crit the patient just remains on Diflucan 100 mg daily. #3. Acute kidney injury related to dehydration and ATN, improved and resolved with IV hydration #4. Diabetes mellitus type 2 #5. Underlying history of sleep apnea on CPAP #6. Hypertension #7. Hyperlipidemia #8. Elevated d-dimer, with no evidence of DVT on lower extremity Dopplers #9. Hypernatremia, related to poor oral intake, improved with IV hydration with D5W #10. Pulmonary nodule, measuring 8 mm projecting at the right lower lobe, will need to be followed up on the CT of the chest with contrast #11. 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, CT of the brain without contrast on 09/28/2021 showed focal area of low attenuation in the right frontal lobe with abscess of the rush-white matter concerning for rush-white matter junction mass/edema or CVA, neurology is following #12. Altered mental status, related to the above, and subacute right frontal lobe CVA Plan: Breathing is stable, comfortable No cough, no worsening dyspnea FiO2 has been dropped down to 8 L Encouraged the patient to sit up in the chair, increase activity as tolerated MRI of the brain has been noted Vital signs have been stable, no fever or chills Contact Decadron to 4 mg daily Continue with Lovenox Continue inhaled bronchodilators Continue sliding scale NovoLog and mealtime NovoLog for blood sugar control Physical therapy evaluation We'll continue to follow I performed a history & physical examination of the patient and discussed their management with my nurse practitioner, Terri Key. I reviewed the nurse practitioner's note and agree with the documented findings and plan of care. Lung sounds are positive for dim breath sounds throughout the lung baxter. The findings and the impression was discussed with the patient. I attest to the documentation by the nurse practitioner. Time with Patient: Less than 30
[2021-10-09] MEDS: SODIUM CHLORIDE 0.9% 1,000 ML IV SCH (15:16)
[2021-10-09 17:03] LABS: Glucose,Whole Blood 200 mg/dL (75-99)
--- NOTE | 2021-10-09 17:58 | P.PN ---
Subjective Progress Note Date: 10/09/21 The patient is seen at bedside and states is doing about the same as yesterday. Per the nurse, he had MRI brain today. It is reported as chronic appearing periventricular and deep white matter ischemic changes at. Atrophy. Correlate for left mastoiditis and acute right frontal sinusitis. Old small infarct in the right frontal parietal region corresponding to the hypodense area on the CT. I personally reviewed it and it does not seem acute or subacute and seems more chronic over the right frontal. Objective - Vital Signs Vital signs: Vital Signs Temp 98.2 F 10/09/21 14:00 Pulse 91 10/09/21 14:00 Resp 20 10/09/21 14:00 BP 118/82 10/09/21 14:00 Pulse Ox 90 L 10/09/21 14:00 Intake & Output 10/08/21 10/09/21 10/09/21 18:59 06:59 18:59 Intake Total 240 Output Total 1400 Balance -1400 240 Intake: Oral 240 Output: Urine 1400 Other: Voiding Method Indwelling Catheter Indwelling Catheter Indwelling Catheter # Voids 700 - Exam GENERAL: The patient is lying in bed and is not in acute distress. NEUROLOGICAL: Higher mental function: The patient is awake, alert, oriented to self, place and time. Patient is following commands. No aphasia and no neglect. Cranial nerves: The pupils are round, equal and reactive to light and accommodation. Visual baxter are full to confrontation throughout. Extraocular movement is intact no nystagmus is noted. The facial strength is mild left lower facial weakness. No dysarthria is noted. Shoulder shrug is normal bilaterally. Motor: The strength is normal throughout. Normal tone and bulk. Cerebellum: Normal finger to nose bilaterally. Sensation: Sensation is normal to touch throughout. WORK-UP: CT head showed possibility of the remote stroke. Mass lesion appears less likely. Carotid Doppler revealed no evidence of hemodynamically significant stenosis. Antegrade flow in the left vertebral artery. Right vertebral artery was not seen. Hemoglobin A1c 7.7, B12 568, folate > 20, and TSH 1.82. Lipid panel with cholesterol 124, LDL 55, HDL 30 and triglycerides 190. 2D echo limited due to COVID exposure is reported as ejection fraction of 50- 55%. MRI brain w/ and w/o is reported as chronic appearing periventricular and deep white matter ischemic changes at. Atrophy. Correlate for left mastoiditis and acute right frontal sinusitis. Old small infarct in the right frontal parietal region corresponding to the hypodense area on the CT. I personally reviewed it and it does not seem acute or subacute and seems more chronic over the right frontal. 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 * Encephalopathy due to multifactorial Hypoxic encephalopathy from COVID-19 pneumonia, medication (steroid) and component metabolic encephalopathy---currently mentation is normal. * Delerium due to above * Acute Covid pneumonia. * History of slurred speech since patient underwent cervical fusion 2 years ago. * Diabetes Plan: * MRI brain today. It is reported as chronic appearing periventricular and deep white matter ischemic changes at. Atrophy. Correlate for left mastoiditis and acute right frontal sinusitis. Old small infarct in the right frontal parietal region corresponding to the hypodense area on the CT. I personally reviewed it and it does not seem acute or subacute and seems more chronic over the right frontal. * Continue aspirin 325 mg daily and Lipitor 10mg qhs for secondary stroke prophylaxis. * Pulmonary team is on board. * PT, OT and BICYCLE MESSENGER are consulted. * Will defer rest of medical management to the primary team. * For DVT prophylaxis: On Enoxaparin 40mg bid. * Patient needs to follow-up with neurologist within 1-2 weeks as outpatietn. The plan is discussed with his nurse. There is no further neurological work-up. Neurology will sign off. Please reconsult neurology if needed. Marcelino Reynoso M.D. Neuro-Hospitalist Time with Patient: Less than 30
[2021-10-09 19:48] LABS: Glucose,Whole Blood 302 mg/dL (75-99)
[2021-10-09] MEDS: ATORVASTATIN 10 MG TAB PO SCH (19:51)
[2021-10-09] MEDS: LATANOPROST 0.005% OPHTH DROPS 2.5 ML BTL BOTH EYES SCH (19:51)
[2021-10-10 07:16] LABS: Glucose,Whole Blood 148 mg/dL (75-99)
[2021-10-10] MEDS: CHOLECALCIFEROL 125 MCG (5000 IU) TABLET PO SCH (08:30)
[2021-10-10] MEDS: ASCORBIC ACID 500 MG TAB PO SCH (08:30)
[2021-10-10] MEDS: DEXAMETHASONE SOD PHOSPHATE 4 MG/ML 1 ML VIAL IVP SCH (08:30)
[2021-10-10] MEDS: FLUCONAZOLE 100 MG TAB PO SCH (08:30)
[2021-10-10] MEDS: GABAPENTIN 300 MG CAP PO SCH ×3 (08:30→20:49)
[2021-10-10] MEDS: carvediloL 12.5 MG TAB PO SCH ×2 (08:30→17:06)
[2021-10-10] MEDS: ASPIRIN 325 MG TAB PO SCH (08:30)
[2021-10-10] MEDS: INSULIN ASPART (NovoLOG) 100 UNIT/ML VIAL SQ SCH ×7 (08:30→20:50)
[2021-10-10] MEDS: amLODIPine 5 MG TAB PO SCH (08:30)
[2021-10-10] MEDS: TAMSULOSIN 0.4 MG CAP.ER.24H PO SCH (08:30)
[2021-10-10] MEDS: ENOXAPARIN 40 MG/0.4 ML SYRINGE SQ SCH ×2 (08:31→20:48)
[2021-10-10] MEDS: ZINC SULFATE 220 MG CAP PO SCH (08:31)
[2021-10-10] MEDS: LIDOCAINE 5% PATCH TOPICAL SCH (08:31)
[2021-10-10] MEDS: TIOTROPIUM 2.5 MCG INHALER INHALATION SCH (09:19)
[2021-10-10] MEDS: SYMBICORT 80-4.5 MCG INHALER INHALATION SCH ×2 (09:19→21:08)
[2021-10-10] MEDS: ALBUTEROL HFA INHALER INHALATION SCH ×4 (09:19→21:08)
[2021-10-10 12:01] LABS: Glucose,Whole Blood 124 mg/dL (75-99)
[2021-10-10] MEDS: SODIUM CHLORIDE 0.9% 1,000 ML IV SCH (13:10)
--- NOTE | 2021-10-10 15:40 | P.PN ---
Subjective Progress Note Date: 10/10/21 Principal diagnosis: Dyspnea This is a 76-year-old male patient who follows with the [facility] system as his primary care provider. He has a history of chronic obstructive pulmonary disease, hypertension, hyperlipidemia, diabetes mellitus, obstructive sleep apnea maintained on CPAP at a pressure of 11 cm of water with C-Flex of 3. He has a 2 week history of increasing shortness of breath, cough and congestion. He presented here to the emergency room yesterday for the same. X-ray reveals bilateral patchy infiltrates left greater than right consistent with COVID-19 pneumonia. White count 8.2. Hemoglobin 12.0. D-dimer 2.07. Sodium 140. Potassium 4.0. Creatinine 1.4. AST 85. ALT 50. LDH 1625. C-reactive protein 38.4. Pro-calcitonin 4.89. [place] virus by PCR positive. He's been initiated on Decadron, vitamin supplements. If he did receive Lovenox 100 mg subcu once yesterday. Normal saline at 75 ML's per hour. He is seen today in consultation in the emergency department. He is currently sitting up awake and alert. Somewhat slow to respond. Somewhat of a poor historian. His daughter is present in the room in supplies most of the information. Is currently maintaining O2 saturations in the low 90s on 6 L high flow nasal cannula. He's been afebrile. Slightly tachycardic. Hypertensive. On 09/25/2021 patient seen in follow-up on medical surgical floor, he is a poor historian, he is currently sitting up in the recliner, he is currently on 8 L of oxygen and his oxygen demand has increased compared to yesterday when he was on 6 L per high flow nasal cannula. Pulse ox is currently 88-89%, he is afebrile, remains hypertensive with blood pressure in the 180s over 107, with a mean of 133 bpm. D-dimer came back elevated at 2.07, lower extremity Dopplers showed no evidence of DVTs in both. His been afebrile, does have a congestive cough, overall his mentation is confused and sleepy. He is currently on the Decadron 6 mg daily, he is on inhaled bronchodilators. Cough is congested, patient does have underlying history of COPD, we will add empiric antibiotics today. We'll obtain follow up pro-calcitonin level. Initial pro-calcitonin level on admission was elevated to 4.89. On 09/26/2021 patient seen in follow-up medical surgical floor. He is confused, but his responsive, he denies any acute distress. He was taken off the BiPAP support this morning, he is currently on 15 L high flow oxygen, and his pulse ox is 89-91%, he removes his oxygen at times, desaturates, becomes more confused. Low-grade fevers in the last 24 hours with a temp of 99.5F. Lung sounds reveal diffuse coarse inspiratory crackles throughout the lung baxter. No complaints of chest pain, occasional cough, no phlegm production. His chest x-ray today shows stable bibasilar and left peripheral COVID infiltrates, and 8 mm nodular density at the right lower lung with a recommendation of follow-up CT scanning of the chest to exclude underlying pulmonary nodule. Patient continues on Rocephin and azithromycin for empiric antibiotic coverage, he is on Decadron 6 mg daily, he is on prophylactic dose of Lovenox. Today's labs have been reviewed, his white blood cell count 8.12, hemoglobin is 12.4, serum sodium is 147, potassium is 4.0, chloride is 111, B1 is 32, creatinine is 1.2, ferritin level is improving and is down to 1227, LDH is down to 477, improved and CRP is also improving and is down to 7.8, follow up pro-calcitonin was improved and was down to 1.53. On 09/27/2021 patient seen in follow-up on medical surgical floor. He is curr ently sleeping, he is on BiPAP support, which he looks very comfortable on, breathing comfortably, BiPAP settings of 12 and 6 and FiO2 of 70%, his pulse ox is Usually better on BiPAP at 95%. On 15 L per high flow nasal cannula his pulse ox is 186%, afebrile, hemodynamically stable, still confused, not agitated. His last chest x-ray from 09/25/2001 showed stable bibasilar and left peripheral COVID infiltrates. Patient was also suspected to have bacteria superinfection, he was placed on azithromycin and Rocephin, his pro-calcitonin was improving, and is down to 0.73 on today's labs from the original value of 4.89 on 09/23/2021. White count is 8.4, hemoglobin is 0.8, his d-dimer is 3.19, sodium is 146, patient remains on D5W at 50 ML per hour, potassium 3.6, B1 is 29, creatinine is 1.His LDH is slightly improved and is down to 1164, CRP is 12.1, improved since admission. Appears to be in no acute distress. Appetite is poor, he is only consuming about 25% of his meals. On 09/29/2021 patient seen in follow-up on medical surgical floor. Patient remains confused, but more awake on today's exam, he has been alternating between BiPAP with pressures of 12.6 and FiO2 of 70% and 15 L high flow oxygen. Pulse ox is 91-92%, his been afebrile. He is only oriented to self, very disoriented to place and time, confused. Does not appear to be in respiratory distress. He does have a cough, which is congested and his mouth has dried up phlegm, oral mucous membranes are extremely dry. Patient has had very poor oral intake related to being BiPAP dependent. Currently tolerating high flow nasal cannula much better, although still remains very confused. But at this point probably able to tolerate some oral feedings. Lung sounds reveal diffuse rhonchi. Needs pulmonary toileting and aspiration precautions. Patient's family was in yesterday to see him for Mathias, and they were concerned about his altered mentation. We will obtain brain CT without today. Remains on antibiotics with azithromycin and Rocephin. He remains on D5W at a rate of 50 ML per hour, Decadron 6 mg daily and Lovenox 40 mg twice daily. His last d- dimer from yesterday was up trending was up to 6.07 at which point his Lovenox dose has been increased to twice daily. His serum sodium has normalized and was down to 144 on yesterday's labs. BUN is 28 creatinine is 1. Inflammatory markers were improving since admission and LDH was down to 413, and CRP was 8.6. Procalcitonin was down to 0.73 On 09/30/2021 patient seen in follow-up on medical surgical floor. he remains confused, but awake and alert, but his speech does not make sense. No unilateral weakness noted. Still significantly altered mentation. This morning he is on Airvo at 12/6 and FiO2 of 50%, his pulse ox is 91-95%. Today he has a strong effective cough, has a bit of a chest congestion, congested cough. Afebrile, hemodynamically he is stable. He asked to have the BiPAP mask removed, and he was placed on 15 L per high flow nasal cannula, breathing fairly comfortably. Yesterday's chest x-ray showed worsening left lower lobe consolidation with minimal infiltration through the right midlung. Patient is currently on a combination of azithromycin and Rocephin, his last pro-calcitonin was down to 0.73. Yesterday CT of the brain was obtained in view of altered mental status, and he was found to have a focal area of low attenuation in the right frontal lobe, stat neurology evaluation was requested, an MRI of the brain with and without to rule out acute CVA was recommended. However a subacute right frontal lobe CVA is suspected. Venous Doppler yesterday was negative for bilateral DVT, today's d-dimer is 3.92, serum sodium has normalized and is down to 142, potassium is 4.2, BUN is 29.8, creatinine is 1, but sugars in the 170s range, AST 39, ALT is 54, LDH is 419, CRP is 4.6. Vital signs show no evidence of fever, patient is in sinus mechanism with a controlled rate, blood pressure stable 130/86. Currently patient remains on D5W at a rate of 50 ML per hour, oral intake has been limited still. However he is able to take in some Ensure with supervision and assistance. He continues on multivitamins, he continues on Decadron. On 10/01/2021 patient seen in follow-up on medical surgical floor. He is resting comfortably in bed, he continues to be confused, although somewhat improved, he was able to tell nursing staff he was in the hospital, and that the month was September. He is not using BiPAP support, he is currently on 15 L of oxygen per high flow nasal cannula his pulse ox is 90%, breathing is nonlabored, lung sounds are positive for diminished breath sounds with some scattered crackles. No cough, no chest pain, while signs have been stable patient has been afebrile. He continues on Decadron 6 mg daily, Lovenox 40 mg twice daily, he is on Zosyn for empiric antibiotic coverage, today's labs have been reviewed, white blood cell count is 13.6, hemoglobin is 13, d-dimer was improving on yesterday's labs and was down to 3.92, today's level still pending, sodium is 141, potassium is 6.0, and this has hemolyzed, BUN is 28 and creatinine is 1, pro-calcitonin level is pending. On the 10/07/2021 patient seen in follow-up on medical surgical floor, he remains on high flow oxygen, currently on 15 L and his pulse ox is 92%, he is laying in bed, not clear if his been up with physical therapy in the chair, his speech is better, he is awake and alert, he is answering questions appropr iately, he is talking about his , he knows he is in [place], he knew he was in the hospital. His been afebrile, vital signs have been stable, breathing is nonlabored, lung sounds are positive for a few scattered rhonchi, patient remains on Zosyn for possibility of aspiration. Today's labs have been reviewed his white blood cell count is fairly stable over last several days at 12.28, hemoglobin is 12, his platelet count is 240, electrolytes were unremarkable, BUN was 32, and creatinine was 1. His last set of inflammatory markers from yesterday showed LDH of 268, and CRP of 0.30, significantly improved. Patient continues on Decadron 6 mg daily, he continues on Diflucan, and Zosyn as mentioned above he is on Symbicort and Spiriva in addition to albuterol. His chest x-ray today showing persistent low lung volumes with left greater than right bilateral lower lung opacities consistent with COVID-19 infection. No significant change from 2 days earlier. on 10/08/2021 patient seen in follow-up on medical surgical floor. He is currently awake and alert, does not appear to be in any acute distress, breathing currently, he still remains a high flow oxygen although we were able t o cut back to 13 L and his pulse ox is around 90-93%. According to the nursing staff patient was up to the commode with assistance, he is generally weak, during my evaluation patient was having a hard time even sitting up in bed, cannot support his own posture. He needs continue skilled physical therapy. Patient has poor balance, decreased strength, decreased endurance and poor cognition and safety awareness according to the PT progress notes. denies any worsening dyspnea, no chest pain, his been afebrile, vital signs have been stable, he is on a modified diet, however she requires assistance and supervision with meals. On 10/09/2021 patient seen in follow-up on medical surgical floor. He is currently on the commode, trying to have a bowel movement, he requires extensive assistance to get up on a commode, but tolerated activity fairly well, currently on 13 L of oxygen with a pulse ox of 98%, breathing is very stable, no cough, no chest pain, we'll drop the FiO2 down to 8 L and monitor his pulse oximetry, vital signs have been stable, his been afebrile, his inflammatory markers were improving on the labs from 10/06/2021. Neurologically he seems to be improving, he was able to finally travel downstairs to the MRI department to complete his brain MRI, which showed chronic appearing periventricular and deep white matter ischemic type changes, atrophy, left mastoiditis and acute right frontal sinusitis, old small infarct in the right frontal parietal region corresponding to the hypodense area on the CT exam of the brain. Patient currently remains on Decadron 6 daily, he is on inhaled bronchodilators with Symbicort and Spiriva is on Lovenox 40 mg twice daily. On 10/10/2021 patient seen in follow-up on medical surgical floor. Patient is breathing comfortably, he is currently on 8 L of oxygen, and his pulse ox is 94%, his FiO2 has been dropped down to 6 L, we'll continue to wean his FiO2, patient denies any worsening dyspnea or cough, vital signs have been stable, his been afebrile, he does have a few scattered rhonchi, overall less congested, he is trying to feed himself, appetite is fair, no complaints of chest discomfort, no phlegm production, no hemoptysis. He is on Decadron at 4 mg daily, she remains on Lovenox 40 mg BID, remains on multivitamins, and Symbicort and Spiriva, no acute events overnight. Patient has been working with physical therapy, however still requires extensive assistance related to his decreased strength and endurance. Objective - Vital Signs Vital signs: Vital Signs Temp 97.8 F 10/10/21 10:54 Pulse 80 10/10/21 10:54 Resp 16 10/10/21 10:54 BP 114/76 10/10/21 10:54 Pulse Ox 92 L 10/10/21 10:54 Intake & Output 10/09/21 10/10/21 10/10/21 18:59 06:59 18:59 Intake Total 240 Output Total 800 1000 Balance -800 -1000 240 Weight 108.862 kg Intake: Oral 240 Output: Urine 800 1000 Other: Voiding Method Indwelling Catheter Indwelling Catheter # Bowel Movements 2 - Exam GENERAL EXAM: More awake, 76-year-old white male, currently on 7 L of oxygen with pulse ox of 92%, patient is currently up to the commode HEAD: Normocephalic/atraumatic. EYES: Normal reaction of pupils, equal size. Conjunctiva pink, sclera white. NOSE: Clear with pink turbinates. MOUTH: dry oral mucous membranes, with dried oral secretions THROAT: No erythema or exudates. NECK: No masses, no JVD, no thyroid enlargement, no adenopathy. CHEST: No chest wall deformity. Symmetrical expansion. LUNGS: Equal air entry with a few scattered crackles CVS: Regular rate and rhythm, normal S1 and S2, no gallops, no murmurs, no rubs ABDOMEN: Soft, nontender. No hepatosplenomegaly, normal bowel sounds, no guarding or rigidity. EXTREMITIES: No clubbing, no edema, no cyanosis, 2+ pulses and upper and lower extremities. MUSCULOSKELETAL: Muscle strength and tone normal. SPINE: No scoliosis or deformity SKIN: No rashes CENTRAL NERVOUS SYSTEM: Confused, but appears to be more alert, currently on 13 l/min. - Labs CBC & Chem 7: 10/07/21 07:40 10/07/21 07:40 Labs: Abnormal Lab Results - Last 24 Hours (Table) 10/09/21 10/09/21 10/10/21 Range/Units 17:01 19:46 07:14 POC Glucose (mg/dL) 200 H 302 H 148 H (75-99) mg/dL 10/10/21 Range/Units 11:58 POC Glucose (mg/dL) 124 H (75-99) mg/dL Assessment and Plan Plan: Assessment: #1. Acute hypoxic respiratory failure related to acute COVID-19 pneumonia, possibility of underlying pneumonia is also considered based on elevated pro- calcitonin level of 4.89. Patient presented to the hospital on 09/23/2021 with 2 weeks of symptoms, he was outside the window for Remdesivir. He is not vaccinated against COVID-19. Today on 10/08/2021 patient is on high flow oxygen at 13 L #2. Elevated pro-calcitonin level, suggesting possibility of underlying bacterial infection, patient was given Rocephin and azithromycin, and pro- calcitonin improved is down to 0.17, antibiotics have been discontinued, crit the patient just remains on Diflucan 100 mg daily. #3. Acute kidney injury related to dehydration and ATN, improved and resolved with IV hydration #4. Diabetes mellitus type 2 #5. Underlying history of sleep apnea on CPAP #6. Hypertension #7. Hyperlipidemia #8. Elevated d-dimer, with no evidence of DVT on lower extremity Dopplers #9. Hypernatremia, related to poor oral intake, improved with IV hydration with D5W #10. Pulmonary nodule, measuring 8 mm projecting at the right lower lobe, will need to be followed up on the CT of the chest with contrast #11. 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, CT of the brain without contrast on 09/28/2021 showed focal area of low attenuation in the right frontal lobe with abscess of the rush-white matter concerning for rush-white matter junction mass/edema or CVA, neurology is following #12. Altered mental status, related to the above, and subacute right frontal lobe CVA Plan: Continue weaning FiO2, currently down to 6 L Breathing comfortably No worsening dyspnea or cough No fever or chills Maintain aspiration precautions Physical therapy is following, and patient will likely require shelter facility for rehab after discharge Continue Decadron, continue Lovenox, bronchodilators Once patient is down to or less than 5 L of supplemental oxygen may be considered for discharge to [facility] I performed a history & physical examination of the patient and discussed their management with my nurse practitioner, Terri Key. I reviewed the nurse practitioner's note and agree with the documented findings and plan of care. Lung sounds are positive for dim breath sounds throughout the lung baxter. The findings and the impression was discussed with the patient. I attest to the documentation by the nurse practitioner. Time with Patient: Less than 30
[2021-10-10 16:50] LABS: Glucose,Whole Blood 191 mg/dL (75-99)
[2021-10-10 20:28] LABS: Glucose,Whole Blood 242 mg/dL (75-99)
[2021-10-10] MEDS: ATORVASTATIN 10 MG TAB PO SCH (20:49)
[2021-10-10] MEDS: LATANOPROST 0.005% OPHTH DROPS 2.5 ML BTL BOTH EYES SCH (20:50)
--- NOTE | 2021-10-10 22:14 | P.PN ---
Subjective Progress Note Date: 10/08/21 76-year-old male came in with complaints of shortness of breath cough has been going on for about the 2 weeks. Patient is hypoxic present has 6 L of oxygen. Found to have Covid 19 infection" is significant infiltrate on the chest x-ray with elevated liver enzymes elevated to calcitonin 4.89. Patient was also having diarrhea nausea vomiting. is bit dehydrated. Patient was a creatinine is 1.42 diabetes with us and is on metformin at home. 09/25/2021 Patient evaluated today sitting in the chair. He is answering any questions and asked appears very lethargic, oxygen saturation 88% on 8 liters high flow cannula last documented. Upon my assessment patient did appear lethargic and hypoxic did increase his oxygen to 10 L high flow and was able to obtain 93-94% saturation rating. Blood pressure 150/85, respirations 19, heart 87, afebrile. Patient is a history of aphasia which is normal for him. He was able to state that he is feeling okay and denies any shortness of breath. Labs today; sodium 145, potassium 4.2, BUN 31.2, creatinine 1.1, glucose in the 300s, AST 113, AST 63, alk phos 88. Patient continues on albuterol, IV azithromycin, Symbicort, IV Rocephin, dexamethasone, Lovenox, zinc, vitamins. 09/26/2021 Patient is pretty status is bit worse compared to yesterday patient required BiPAP last night and patient is presently on high flow nasal cannula oxygen along with the nonrebreather 09/27/2021 Patient's respiratory status remains the same. Patient is still requiring BiPAP. Patient although feels better subjectively. On [id number]/25/2021 Patient's respiratory status remains the same is requiring a BiPAP on and off and is presently on 15 L high flow nasal cannula oxygen. His speech as per the nursing staff is better. His d-dimer is elevated I'll start him on Lovenox 40 twice a day 09/29/2021 Patient's hyponatremia improved patient also is confused compared to yesterday this is probably because of the steroids, infection, prolonged hospitalization. Pulmonary ordered CT of the head which is being obtain at this time. Patient isn't requirement remains the same. 09/30/2021 Patient is evaluated resting in the bed, he is getting an echocardiogram at the time of my assessment, which is pending at this time. Carotid Doppler shows no evidence for hemodynamically significant stenosis bilateral. Chest x-ray today shows worsening left lower lobe consolidation with minimal infiltrate at the right midlung. Brain CT completed yesterday shows a focal area of low attenuation right frontal lobe was absent rush-white matter differentiation and a nonvascular territory concerning for mass/edema, chronic microvascular ischemic changes and lacunar infarcts most likely chronic findings. Imaging was reviewed by neurology who recommended an MRI with and without contrast to rule out stroke first mass as he felt it was more likely subacute changes suspicious for stroke in the right frontal lobe. Venous Doppler yesterday was negative for bilateral DVT. D-dimer today 3.92, sodium 142, potassium 4.2, BUN 29.8, creatinine 1, blood sugars in the 170s, AST 39, ALT 54, LDH 419, CRP 4.6. Triglycerides elevated at 190, HDL 30. Vitals reviewed today shows a temp of 97.3, heart rate 90s sinus rhythm, blood pressure 130/86, oxygen saturation is 91% on a BiPAP with FiO2 70%. Patient has been unable to quit completely a PT evaluation due to his respiratory status, speech therapy is pending at this time. Continues on IV antibiotics in the form of azithromycin, X, zinc, multivitamins, Decadron, bronchodilators. He is being followed closely by lmonary and neurology services. 10/01/2021 Patient is alert and oriented x3, he is a poor historian however. Difficult to carry on a conversation and complete a review of systems, as he is hard of hearing. He is lying on his right side during examination. Labs today show a white count of 13.62, D-Dimer of 2.55, sodium 138, potassium of 6, which was repeated and is now 4.3, BUN 33, creatinine 0.99, blood sugars 198, magnesium 2.3, AST 87, ALT 67, alk phos 109, total protein 5.9, albumin 2.6. Vitals reviewed; he is afebrile, heart rate 97, blood pressure 152/80, 91% on 10 L HF cannula. He was able to be weaned slightly from a 15 L high flow cannula. MRI of the brain is pending. [id number] Patient is currently in the medical floor. Requiring oxygen 15 L via nasal cannula high flow. Patient is otherwise lying in the bed comfortably. Does have minimal cough. Patient is being continued on dexamethasone and Lovenox and multivitamin supplementation also on Symbicort and Spiriva and albuterol inhalation. CT head showed possible subacute to chronic CVA in the right anterior frontal lobe lesion. Awaiting MRI of the brain. 2D echocardiogram is pending. Laboratory data reviewed. Pulmonary and neurology is on board. 10/03/2021 patient is currently awake alert. Requiring oxygen 15 L high flow oxygen via nasal cannula. Patient is being current dexamethasone and Lovenox and multivitamin supplementation. Patient is also on antibiotic in the form of Zosyn. Currently afebrile. Laboratory data showed WBC 12.9 hemoglobin 12.9 platelets 319 BUN 23 and creatinine 1.0 LDAs 323 and CRP 1.5. MRI is pending to rule out subacute/acute CVA. Neurology and pulmonary is on board. 10/04/2021 patient is awake alert and able to communicate. 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 Resting in the bed comfortably. Requiring oxygen at 15 L via nasal cannula. She'll be continued on dexamethasone Lovenox and multivitamins mentation and remains on Zosyn. Patient has been afebrile. Tolerating oral diet. No cough or sputum production. No nausea vomiting abdominal pain or diarrhea.. Laboratory data reviewed. 10/05/2021 patient is currently resting in the bed. Awake alert and oriented x3. Still requiring oxygen 15 L high flow. Chest x-ray showed similar left lung base and midlung airspace opacities. No evidence of pneumothorax. Patient is on dexamethasone and Lovenox and multivitamins. Patient is being current on Zosyn. Day 5. Patient is tolerating oral diet. D5 water has been discontinued and patient declines KVO. Encourage oral intake. Continue with insulin sliding scale for better blood sugar control. Continued on duo nebs and Symbicort. Neurology and pulmonary is on board. 10/06/2021 Patient is currently lying in the bed. Awake alert and oriented. No complaints of chest pain or worsening shortness of breath. Currently requiring 15 L oxygen via nasal cannula. Patient is maintained antibiotics involve Zosyn. Continue dexamethasone Lovenox subcu and multivitamin supplementation. Laboratory data showed WBC 11.0 hemoglobin 12.1 platelets 278 BUN 33 and creatinine 1.1 blood sugar is 268 10/07/2021 Patient is resting in the bed. Awake alert and oriented but lethargic and confused at times. Currently requiring 15 L oxygen via nasal cannula. Patient has been afebrile. Patient has been continued on antibiotics with normal Zosyn for possible aspiration. Laboratory data showed WBC 12.2 hemoglobin 12.0 platelets 240 neutrophils 10.02 BUN 32.4 and creatinine 1.0 and blood sugar is 140. Patient is also being continued on dexamethasone, Lovenox and Multivite's recommendation for COVID-19 pneumonia continue breathing treatments. Pulmonary is following. Chest x-ray today showed persistent low lung volumes with the left greater than right bilateral lower lung opacities consistent with COVID-19 infection. Redemonstrated. No significant change from 2 days earlier. 10/08/2021 Patient is resting in bed. Awake alert and oriented. Still having mild confusion. Remains on high flow oxygen at 15 L trying to wean down to 13 L today. Patient is able to tolerate oral diet. Patient does have generalized weakness. No complaints of chest pain. No nausea vomiting abdominal pain or diarrhea. Tolerating oral diet. No chest pain or worsening shortness of breath. Laboratory data reviewed. Patient is being current dexamethasone, Lovenox subcu and multivitamin supplementation. Currently done DuoNebs and PT O T. Pulmonary is on board. REVIEW OF SYSTEMS CONSTITUTIONAL: Denies fever or chills. weak and lethargic CARDIOVASCULAR: Denies chest pain, shortness of breath, orthopnea, PND or palpitations. RESPIRATORY: Denies cough. GASTROINTESTINAL: Denies abdominal pain, diarrhea, constipation, nausea or vomiting. MUSCULOSKELETAL: Denies myalgias. NEUROLOGIC: Denies numbness, tingling or weakness. ENDOCRINE: Denies fatigue, weight change, polydipsia or polyurina. GENITOURINARY: Denies burning, hematuria or urgency with micturation. HEMATOLOGIC: Denies history of anemia or bleeding. All inpatient medications were reviewed and appropriate changes in these medications as dictated in the interval history and assessment and plan. Objective - Vital Signs Vital signs: Vital Signs Temp 97.9 F 10/08/21 18:29 Pulse 97 10/08/21 18:29 Resp 20 10/08/21 19:53 BP 98/68 10/08/21 18:29 Pulse Ox 93 L 10/08/21 18:29 Intake & Output 10/08/21 10/08/21 10/09/21 06:59 18:59 06:59 Output Total 600 1400 Balance -600 -1400 Output: Urine 600 1400 Other: Voiding Method Indwelling Catheter Indwelling Catheter Indwelling Catheter # Voids 700 - Exam PHYSICAL EXAMINATION: GENERAL: The patient is alert and oriented x1, mild respiratory distress. Well developed, well nourished. HEENT: Pupils are round and equally reacting to light. EOMI. No scleral icterus. No conjunctival pallor. Normocephalic, atraumatic. No pharyngeal erythema. No thyromegaly. CARDIOVASCULAR: S1 and S2 present. No murmurs, rubs, or gallops. PULMONARY: Coarse rhonchi bilateral ABDOMEN: Soft, nontender, nondistended, normoactive bowel sounds. No palpable organomegaly. MUSCULOSKELETAL: No joint swelling or deformity. EXTREMITIES: No cyanosis, clubbing, mild peripheral edema NEUROLOGICAL: Gross neurological examination did not reveal any focal deficits. SKIN: No rashes. - Labs CBC & Chem 7: 10/07/21 07:40 10/07/21 07:40 Labs: Abnormal Lab Results - Last 24 Hours (Table) 10/07/21 10/07/21 10/08/21 Range/Units 20:45 20:49 07:11 POC Glucose (mg/dL) 181 H 171 H 108 H (75-99) mg/dL 10/08/21 10/08/21 Range/Units 11:52 17:00 POC Glucose (mg/dL) 162 H 233 H (75-99) mg/dL Assessment and Plan Assessment: Assessment and plan -Acute hypoxic respiratory failure secondary to COVID 19 pneumonia; Patient doesn't qualify for a Remdesivir. on 15 L--13L hi flow -Possible aspiration pneumonia -Acute renal failure possibly secondary to intravascular depletion and dehydration, resolved at this time -Altered Mental status secondary to toxic encephalopathy from infection with a competent of her prolonged hospitalization leading to sundowners, rule out subacute stroke, neurology consult, MRI pending -possibility of subacute to chronic CVA in the right anterior frontal lobe region -Type 2 diabetes mellitus with hyperglycemia, improving -Hypertension -Hyperlipidemia -transaminitis secondary to Covid 19 infection -Elevated D-Dimer secondary to Covid 19 infection -Elevated inflammatory markers of Covid 19 -Obstructive sleep apnea patient doesn't use any oxygen at home patient quit smoking many years ago DVT prophylaxis: Lovenox Plan MRI pending, Echo pending Continue neuro checks Continue IV antibiotics Continue decadron, zinc, vitamins, lovenox Continue bronchodilators Titrate oxygen as needed Present insulin regimen Continue all other supportive care Prognosis remains guarded for this patient Time with Patient: Greater than 30
--- NOTE | 2021-10-10 22:19 | P.PN ---
Subjective Progress Note Date: 10/09/21 76-year-old male came in with complaints of shortness of breath cough has been going on for about the 2 weeks. Patient is hypoxic present has 6 L of oxygen. Found to have Covid 19 infection" is significant infiltrate on the chest x-ray with elevated liver enzymes elevated to calcitonin 4.89. Patient was also having diarrhea nausea vomiting. is bit dehydrated. Patient was a creatinine is 1.42 diabetes with us and is on metformin at home. 09/25/2021 Patient evaluated today sitting in the chair. He is answering any questions and asked appears very lethargic, oxygen saturation 88% on 8 liters high flow cannula last documented. Upon my assessment patient did appear lethargic and hypoxic did increase his oxygen to 10 L high flow and was able to obtain 93-94% saturation rating. Blood pressure 150/85, respirations 19, heart 87, afebrile. Patient is a history of aphasia which is normal for him. He was able to state that he is feeling okay and denies any shortness of breath. Labs today; sodium 145, potassium 4.2, BUN 31.2, creatinine 1.1, glucose in the 300s, AST 113, AST 63, alk phos 88. Patient continues on albuterol, IV azithromycin, Symbicort, IV Rocephin, dexamethasone, Lovenox, zinc, vitamins. 09/26/2021 Patient is pretty status is bit worse compared to yesterday patient required BiPAP last night and patient is presently on high flow nasal cannula oxygen along with the nonrebreather 09/27/2021 Patient's respiratory status remains the same. Patient is still requiring BiPAP. Patient although feels better subjectively. On [id number]/25/2021 Patient's respiratory status remains the same is requiring a BiPAP on and off and is presently on 15 L high flow nasal cannula oxygen. His speech as per the nursing staff is better. His d-dimer is elevated I'll start him on Lovenox 40 twice a day 09/29/2021 Patient's hyponatremia improved patient also is confused compared to yesterday this is probably because of the steroids, infection, prolonged hospitalization. Pulmonary ordered CT of the head which is being obtain at this time. Patient isn't requirement remains the same. 09/30/2021 Patient is evaluated resting in the bed, he is getting an echocardiogram at the time of my assessment, which is pending at this time. Carotid Doppler shows no evidence for hemodynamically significant stenosis bilateral. Chest x-ray today shows worsening left lower lobe consolidation with minimal infiltrate at the right midlung. Brain CT completed yesterday shows a focal area of low attenuation right frontal lobe was absent rush-white matter differentiation and a nonvascular territory concerning for mass/edema, chronic microvascular ischemic changes and lacunar infarcts most likely chronic findings. Imaging was reviewed by neurology who recommended an MRI with and without contrast to rule out stroke first mass as he felt it was more likely subacute changes suspicious for stroke in the right frontal lobe. Venous Doppler yesterday was negative for bilateral DVT. D-dimer today 3.92, sodium 142, potassium 4.2, BUN 29.8, creatinine 1, blood sugars in the 170s, AST 39, ALT 54, LDH 419, CRP 4.6. Triglycerides elevated at 190, HDL 30. Vitals reviewed today shows a temp of 97.3, heart rate 90s sinus rhythm, blood pressure 130/86, oxygen saturation is 91% on a BiPAP with FiO2 70%. Patient has been unable to quit completely a PT evaluation due to his respiratory status, speech therapy is pending at this time. Continues on IV antibiotics in the form of azithromycin, X, zinc, multivitamins, Decadron, bronchodilators. He is being followed closely by lmonary and neurology services. 10/01/2021 Patient is alert and oriented x3, he is a poor historian however. Difficult to carry on a conversation and complete a review of systems, as he is hard of hearing. He is lying on his right side during examination. Labs today show a white count of 13.62, D-Dimer of 2.55, sodium 138, potassium of 6, which was repeated and is now 4.3, BUN 33, creatinine 0.99, blood sugars 198, magnesium 2.3, AST 87, ALT 67, alk phos 109, total protein 5.9, albumin 2.6. Vitals reviewed; he is afebrile, heart rate 97, blood pressure 152/80, 91% on 10 L HF cannula. He was able to be weaned slightly from a 15 L high flow cannula. MRI of the brain is pending. [id number] Patient is currently in the medical floor. Requiring oxygen 15 L via nasal cannula high flow. Patient is otherwise lying in the bed comfortably. Does have minimal cough. Patient is being continued on dexamethasone and Lovenox and multivitamin supplementation also on Symbicort and Spiriva and albuterol inhalation. CT head showed possible subacute to chronic CVA in the right anterior frontal lobe lesion. Awaiting MRI of the brain. 2D echocardiogram is pending. Laboratory data reviewed. Pulmonary and neurology is on board. 10/03/2021 patient is currently awake alert. Requiring oxygen 15 L high flow oxygen via nasal cannula. Patient is being current dexamethasone and Lovenox and multivitamin supplementation. Patient is also on antibiotic in the form of Zosyn. Currently afebrile. Laboratory data showed WBC 12.9 hemoglobin 12.9 platelets 319 BUN 23 and creatinine 1.0 LDAs 323 and CRP 1.5. MRI is pending to rule out subacute/acute CVA. Neurology and pulmonary is on board. 10/04/2021 patient is awake alert and able to communicate. 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 Resting in the bed comfortably. Requiring oxygen at 15 L via nasal cannula. She'll be continued on dexamethasone Lovenox and multivitamins mentation and remains on Zosyn. Patient has been afebrile. Tolerating oral diet. No cough or sputum production. No nausea vomiting abdominal pain or diarrhea.. Laboratory data reviewed. 10/05/2021 patient is currently resting in the bed. Awake alert and oriented x3. Still requiring oxygen 15 L high flow. Chest x-ray showed similar left lung base and midlung airspace opacities. No evidence of pneumothorax. Patient is on dexamethasone and Lovenox and multivitamins. Patient is being current on Zosyn. Day 5. Patient is tolerating oral diet. D5 water has been discontinued and patient declines KVO. Encourage oral intake. Continue with insulin sliding scale for better blood sugar control. Continued on duo nebs and Symbicort. Neurology and pulmonary is on board. 10/06/2021 Patient is currently lying in the bed. Awake alert and oriented. No complaints of chest pain or worsening shortness of breath. Currently requiring 15 L oxygen via nasal cannula. Patient is maintained antibiotics involve Zosyn. Continue dexamethasone Lovenox subcu and multivitamin supplementation. Laboratory data showed WBC 11.0 hemoglobin 12.1 platelets 278 BUN 33 and creatinine 1.1 blood sugar is 268 10/07/2021 Patient is resting in the bed. Awake alert and oriented but lethargic and confused at times. Currently requiring 15 L oxygen via nasal cannula. Patient has been afebrile. Patient has been continued on antibiotics with normal Zosyn for possible aspiration. Laboratory data showed WBC 12.2 hemoglobin 12.0 platelets 240 neutrophils 10.02 BUN 32.4 and creatinine 1.0 and blood sugar is 140. Patient is also being continued on dexamethasone, Lovenox and Multivite's recommendation for COVID-19 pneumonia continue breathing treatments. Pulmonary is following. Chest x-ray today showed persistent low lung volumes with the left greater than right bilateral lower lung opacities consistent with COVID-19 infection. Redemonstrated. No significant change from 2 days earlier. 10/08/2021 Patient is resting in bed. Awake alert and oriented. Still having mild confusion. Remains on high flow oxygen at 15 L trying to wean down to 13 L today. Patient is able to tolerate oral diet. Patient does have generalized weakness. No complaints of chest pain. No nausea vomiting abdominal pain or diarrhea. Tolerating oral diet. No chest pain or worsening shortness of breath. Laboratory data reviewed. Patient is being current dexamethasone, Lovenox subcu and multivitamin supplementation. Currently done DuKezia and PT O T. Pulmonary is on board. 10/09/2021 Patient is able to sit in the recliner today. No complaints of chest pain. Still having exertional short of breath and requiring 13 L oxygen via nasal cannula. Trying to wean down to 8 L today. Patient has been afebrile. Mild cough. No complaints of chest pain or tightness. Patient is being continued on dexamethasone, Lovenox subcu and multivitamins and breathing treatments. MRI of the brain was done today. Showing chronic appearing periventricular and deep white matter ischemic changes and atrophy. Correlate for left mastoiditis and acute right frontal sinusitis. 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 Patient will be continued on aspirin and statins for secondary stroke prophylax is. Patient is tolerating oral diet. PT OT and ELECTRIC RELAY TESTER consulted. REVIEW OF SYSTEMS CONSTITUTIONAL: Denies fever or chills. weak and lethargic CARDIOVASCULAR: Denies chest pain, shortness of breath, orthopnea, PND or palpitations. RESPIRATORY: Denies cough. GASTROINTESTINAL: Denies abdominal pain, diarrhea, constipation, nausea or vomiting. MUSCULOSKELETAL: Denies myalgias. NEUROLOGIC: Denies numbness, tingling or weakness. ENDOCRINE: Denies fatigue, weight change, polydipsia or polyurina. GENITOURINARY: Denies burning, hematuria or urgency with micturation. HEMATOLOGIC: Denies history of anemia or bleeding. All inpatient medications were reviewed and appropriate changes in these medications as dictated in the interval history and assessment and plan. Objective - Vital Signs Vital signs: Vital Signs Temp 97.6 F 10/09/21 22:15 Pulse 84 10/09/21 22:15 Resp 15 10/09/21 22:15 BP 116/68 10/09/21 22:15 Pulse Ox 92 L 10/09/21 22:15 Intake & Output 10/09/21 10/09/21 10/10/21 06:59 18:59 06:59 Intake Total 240 Output Total 800 Balance 240 -800 Weight 108.862 kg Intake: Oral 240 Output: Urine 800 Other: Voiding Method Indwelling Catheter Indwelling Catheter Indwelling Catheter # Bowel Movements 2 - Exam PHYSICAL EXAMINATION: GENERAL: The patient is alert and oriented x1, mild respiratory distress. Well developed, well nourished. HEENT: Pupils are round and equally reacting to light. EOMI. No scleral icterus. No conjunctival pallor. Normocephalic, atraumatic. No pharyngeal erythema. No thyromegaly. CARDIOVASCULAR: S1 and S2 present. No murmurs, rubs, or gallops. PULMONARY: Coarse rhonchi bilateral ABDOMEN: Soft, nontender, nondistended, normoactive bowel sounds. No palpable organomegaly. MUSCULOSKELETAL: No joint swelling or deformity. EXTREMITIES: No cyanosis, clubbing, mild peripheral edema NEUROLOGICAL: Gross neurological examination did not reveal any focal deficits. SKIN: No rashes. - Labs CBC & Chem 7: 10/07/21 07:40 10/07/21 07:40 Labs: Abnormal Lab Results - Last 24 Hours (Table) 10/09/21 10/09/21 10/09/21 Range/Units 07:30 12:17 17:01 POC Glucose (mg/dL) 113 H 185 H 200 H (75-99) mg/dL 10/09/21 Range/Units 19:46 POC Glucose (mg/dL) 302 H (75-99) mg/dL Assessment and Plan Assessment: Assessment and plan -Acute hypoxic respiratory failure secondary to COVID 19 pneumonia; Patient doesn't qualify for a Remdesivir. on 15 L--13L--8L hi flow -Possible aspiration pneumonia -Acute renal failure possibly secondary to intravascular depletion and dehydration, resolved at this time -Altered Mental status secondary to toxic encephalopathy from infection with a competent of her prolonged hospitalization leading to sundowners, rule out subacute stroke, neurology consult, MRI was done. no acute CVA -possibility of subacute to chronic CVA in the right anterior frontal lobe region -Type 2 diabetes mellitus with hyperglycemia, improving -Hypertension -Hyperlipidemia -transaminitis secondary to Covid 19 infection -Elevated D-Dimer secondary to Covid 19 infection -Elevated inflammatory markers of Covid 19 -Obstructive sleep apnea patient doesn't use any oxygen at home patient quit smoking many years ago DVT prophylaxis: Lovenox Plan MRI of the brain was done on 10/09. Showing chronic appearing periventricular and deep white matter ischemic changes and atrophy. Correlate for left mastoiditis and acute right frontal sinusitis. Old small infarct in the right frontal liam etal region corresponding to the hypodense areas on the CT. Patient will be continued on aspirin and statins for secondary stroke prophylaxis. Patient is tolerating oral diet. PT OT and ELECTRIC RELAY TESTER consulted. Continue IV antibiotics Continue decadron, zinc, vitamins, lovenox Continue bronchodilators Titrate oxygen as needed Present insulin regimen Continue all other supportive care Prognosis remains guarded for this patient Time with Patient: Greater than 30
--- NOTE | 2021-10-10 22:24 | P.PN ---
Subjective Progress Note Date: 10/10/21 76-year-old male came in with complaints of shortness of breath cough has been going on for about the 2 weeks. Patient is hypoxic present has 6 L of oxygen. Found to have Covid 19 infection" is significant infiltrate on the chest x-ray with elevated liver enzymes elevated to calcitonin 4.89. Patient was also having diarrhea nausea vomiting. is bit dehydrated. Patient was a creatinine is 1.42 diabetes with us and is on metformin at home. 09/25/2021 Patient evaluated today sitting in the chair. He is answering any questions and asked appears very lethargic, oxygen saturation 88% on 8 liters high flow cannula last documented. Upon my assessment patient did appear lethargic and hypoxic did increase his oxygen to 10 L high flow and was able to obtain 93-94% saturation rating. Blood pressure 150/85, respirations 19, heart 87, afebrile. Patient is a history of aphasia which is normal for him. He was able to state that he is feeling okay and denies any shortness of breath. Labs today; sodium 145, potassium 4.2, BUN 31.2, creatinine 1.1, glucose in the 300s, AST 113, AST 63, alk phos 88. Patient continues on albuterol, IV azithromycin, Symbicort, IV Rocephin, dexamethasone, Lovenox, zinc, vitamins. 09/26/2021 Patient is pretty status is bit worse compared to yesterday patient required BiPAP last night and patient is presently on high flow nasal cannula oxygen along with the nonrebreather 09/27/2021 Patient's respiratory status remains the same. Patient is still requiring BiPAP. Patient although feels better subjectively. On [id number]/25/2021 Patient's respiratory status remains the same is requiring a BiPAP on and off and is presently on 15 L high flow nasal cannula oxygen. His speech as per the nursing staff is better. His d-dimer is elevated I'll start him on Lovenox 40 twice a day 09/29/2021 Patient's hyponatremia improved patient also is confused compared to yesterday this is probably because of the steroids, infection, prolonged hospitalization. Pulmonary ordered CT of the head which is being obtain at this time. Patient isn't requirement remains the same. 09/30/2021 Patient is evaluated resting in the bed, he is getting an echocardiogram at the time of my assessment, which is pending at this time. Carotid Doppler shows no evidence for hemodynamically significant stenosis bilateral. Chest x-ray today shows worsening left lower lobe consolidation with minimal infiltrate at the right midlung. Brain CT completed yesterday shows a focal area of low attenuation right frontal lobe was absent rush-white matter differentiation and a nonvascular territory concerning for mass/edema, chronic microvascular ischemic changes and lacunar infarcts most likely chronic findings. Imaging was reviewed by neurology who recommended an MRI with and without contrast to rule out stroke first mass as he felt it was more likely subacute changes suspicious for stroke in the right frontal lobe. Venous Doppler yesterday was negative for bilateral DVT. D-dimer today 3.92, sodium 142, potassium 4.2, BUN 29.8, creatinine 1, blood sugars in the 170s, AST 39, ALT 54, LDH 419, CRP 4.6. Triglycerides elevated at 190, HDL 30. Vitals reviewed today shows a temp of 97.3, heart rate 90s sinus rhythm, blood pressure 130/86, oxygen saturation is 91% on a BiPAP with FiO2 70%. Patient has been unable to quit completely a PT evaluation due to his respiratory status, speech therapy is pending at this time. Continues on IV antibiotics in the form of azithromycin, X, zinc, multivitamins, Decadron, bronchodilators. He is being followed closely by lmonary and neurology services. 10/01/2021 Patient is alert and oriented x3, he is a poor historian however. Difficult to carry on a conversation and complete a review of systems, as he is hard of hearing. He is lying on his right side during examination. Labs today show a white count of 13.62, D-Dimer of 2.55, sodium 138, potassium of 6, which was repeated and is now 4.3, BUN 33, creatinine 0.99, blood sugars 198, magnesium 2.3, AST 87, ALT 67, alk phos 109, total protein 5.9, albumin 2.6. Vitals reviewed; he is afebrile, heart rate 97, blood pressure 152/80, 91% on 10 L HF cannula. He was able to be weaned slightly from a 15 L high flow cannula. MRI of the brain is pending. [id number] Patient is currently in the medical floor. Requiring oxygen 15 L via nasal cannula high flow. Patient is otherwise lying in the bed comfortably. Does have minimal cough. Patient is being continued on dexamethasone and Lovenox and multivitamin supplementation also on Symbicort and Spiriva and albuterol inhalation. CT head showed possible subacute to chronic CVA in the right anterior frontal lobe lesion. Awaiting MRI of the brain. 2D echocardiogram is pending. Laboratory data reviewed. Pulmonary and neurology is on board. 10/03/2021 patient is currently awake alert. Requiring oxygen 15 L high flow oxygen via nasal cannula. Patient is being current dexamethasone and Lovenox and multivitamin supplementation. Patient is also on antibiotic in the form of Zosyn. Currently afebrile. Laboratory data showed WBC 12.9 hemoglobin 12.9 platelets 319 BUN 23 and creatinine 1.0 LDAs 323 and CRP 1.5. MRI is pending to rule out subacute/acute CVA. Neurology and pulmonary is on board. 10/04/2021 patient is awake alert and able to communicate. 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 Resting in the bed comfortably. Requiring oxygen at 15 L via nasal cannula. She'll be continued on dexamethasone Lovenox and multivitamins mentation and remains on Zosyn. Patient has been afebrile. Tolerating oral diet. No cough or sputum production. No nausea vomiting abdominal pain or diarrhea.. Laboratory data reviewed. 10/05/2021 patient is currently resting in the bed. Awake alert and oriented x3. Still requiring oxygen 15 L high flow. Chest x-ray showed similar left lung base and midlung airspace opacities. No evidence of pneumothorax. Patient is on dexamethasone and Lovenox and multivitamins. Patient is being current on Zosyn. Day 5. Patient is tolerating oral diet. D5 water has been discontinued and patient declines KVO. Encourage oral intake. Continue with insulin sliding scale for better blood sugar control. Continued on duo nebs and Symbicort. Neurology and pulmonary is on board. 10/06/2021 Patient is currently lying in the bed. Awake alert and oriented. No complaints of chest pain or worsening shortness of breath. Currently requiring 15 L oxygen via nasal cannula. Patient is maintained antibiotics involve Zosyn. Continue dexamethasone Lovenox subcu and multivitamin supplementation. Laboratory data showed WBC 11.0 hemoglobin 12.1 platelets 278 BUN 33 and creatinine 1.1 blood sugar is 268 10/07/2021 Patient is resting in the bed. Awake alert and oriented but lethargic and confused at times. Currently requiring 15 L oxygen via nasal cannula. Patient has been afebrile. Patient has been continued on antibiotics with normal Zosyn for possible aspiration. Laboratory data showed WBC 12.2 hemoglobin 12.0 platelets 240 neutrophils 10.02 BUN 32.4 and creatinine 1.0 and blood sugar is 140. Patient is also being continued on dexamethasone, Lovenox and Multivite's recommendation for COVID-19 pneumonia continue breathing treatments. Pulmonary is following. Chest x-ray today showed persistent low lung volumes with the left greater than right bilateral lower lung opacities consistent with COVID-19 infection. Redemonstrated. No significant change from 2 days earlier. 10/08/2021 Patient is resting in bed. Awake alert and oriented. Still having mild confusion. Remains on high flow oxygen at 15 L trying to wean down to 13 L today. Patient is able to tolerate oral diet. Patient does have generalized weakness. No complaints of chest pain. No nausea vomiting abdominal pain or diarrhea. Tolerating oral diet. No chest pain or worsening shortness of breath. Laboratory data reviewed. Patient is being current dexamethasone, Lovenox subcu and multivitamin supplementation. Currently done DuoNebs and PT OT. Pulmonary is on board. 10/09/2021 Patient is able to sit in the recliner today. No complaints of chest pain. Still having exertional short of breath and requiring 13 L oxygen via nasal cannula. Trying to wean down to 8 L today. Patient has been afebrile. Mild cough. No complaints of chest pain or tightness. Patient is being continued on dexamethasone, Lovenox subcu and multivitamins and breathing treatments. MRI of the brain was done today. Showing chronic appearing periventricular and deep white matter ischemic changes and atrophy. Correlate for left mastoiditis and acute right frontal sinusitis. 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 Patient will be continued on aspirin and statins for secondary stroke prophylaxis. Patient is tolerating oral diet. PT OT and PACK [employer]LE WORKER consulted. 10/10/2021 Patient is currently resting in the bed. Awake alert but lethargic and very weak. Able to work with physical therapy today. Oxygen requirement titrated down to 6 L today. Denies any complaints of chest pain. Mild exertional dyspnea present. No complaints of fever or chills. No nausea vomiting or abdominal pain or diarrhea. Patient is being continued on dexamethasone, Lovenox subcu and multivitamin supplementation and breathing treatments. Follow-up CBC and BMP tomorrow. Pulmonary is on board. Patient will need rehab transfer. REVIEW OF SYSTEMS CONSTITUTIONAL: Denies fever or chills. weak and lethargic CARDIOVASCULAR: Denies chest pain, shortness of breath, orthopnea, PND or pa lpitations. RESPIRATORY: Denies cough. GASTROINTESTINAL: Denies abdominal pain, diarrhea, constipation, nausea or vomiting. MUSCULOSKELETAL: Denies myalgias. NEUROLOGIC: Denies numbness, tingling or weakness. ENDOCRINE: Denies fatigue, weight change, polydipsia or polyurina. GENITOURINARY: Denies burning, hematuria or urgency with micturation. HEMATOLOGIC: Denies history of anemia or bleeding. All inpatient medications were reviewed and appropriate changes in these medications as dictated in the interval history and assessment and plan. Objective - Vital Signs Vital signs: Vital Signs Temp 97.6 F 10/10/21 18:10 Pulse 88 10/10/21 18:10 Resp 16 10/10/21 18:10 BP 105/64 10/10/21 18:10 Pulse Ox 91 L 10/10/21 18:10 Intake & Output 10/10/21 10/10/21 10/11/21 06:59 18:59 06:59 Intake Total 476 Output Total 1000 1000 Balance -1000 -524 Intake: Oral 476 Output: Urine 1000 1000 Other: Voiding Method Indwelling Catheter Indwelling Catheter - Exam PHYSICAL EXAMINATION: GENERAL: The patient is alert and oriented x1, mild respiratory distress. Well developed, well nourished. HEENT: Pupils are round and equally reacting to light. EOMI. No scleral icterus. No conjunctival pallor. Normocephalic, atraumatic. No pharyngeal erythema. No thyromegaly. CARDIOVASCULAR: S1 and S2 present. No murmurs, rubs, or gallops. PULMONARY: Coarse scttered rhonchi bilateral ABDOMEN: Soft, nontender, nondistended, normoactive bowel sounds. No palpable organomegaly. MUSCULOSKELETAL: No joint swelling or deformity. EXTREMITIES: No cyanosis, clubbing, mild peripheral edema NEUROLOGICAL: Gross neurological examination did not reveal any focal deficits. SKIN: No rashes. - Labs CBC & Chem 7: 10/07/21 07:40 10/07/21 07:40 Labs: Abnormal Lab Results - Last 24 Hours (Table) 10/10/21 10/10/21 10/10/21 Range/Units 07:14 11:58 16:48 POC Glucose (mg/dL) 148 H 124 H 191 H (75-99) mg/dL 10/10/21 Range/Units 20:25 POC Glucose (mg/dL) 242 H (75-99) mg/dL Assessment and Plan Assessment: Assessment and plan -Acute hypoxic respiratory failure secondary to COVID 19 pneumonia; Patient do esn't qualify for a Remdesivir. on 15 L--13L--8L--6L hi flow -Possible aspiration pneumonia -Acute renal failure possibly secondary to intravascular depletion and dehydration, resolved at this time -Altered Mental status secondary to toxic encephalopathy from infection with a competent of her prolonged hospitalization leading to sundowners, rule out subacute stroke, neurology consult, MRI was done. no acute CVA -possibility of subacute to chronic CVA in the right anterior frontal lobe region -Type 2 diabetes mellitus with hyperglycemia, improving -Hypertension -Hyperlipidemia -transaminitis secondary to Covid 19 infection -Elevated D-Dimer secondary to Covid 19 infection -Elevated inflammatory markers of Covid 19 -Obstructive sleep apnea patient doesn't use any oxygen at home patient quit smoking many years ago DVT prophylaxis: Lovenox Plan MRI of the brain was done on 10/09. Showing chronic appearing periventricular and deep white matter ischemic changes and atrophy. Correlate for left mastoiditis and acute right frontal sinusitis. 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 Patient will be continued on aspirin and statins for secondary stroke prophylaxis. Patient is tolerating oral diet. PT OT and PACK MULE WORKER is following. Continue decadron, zinc, vitamins, lovenox Continue bronchodilators Titrate oxygen as needed Present insulin regimen Continue all other supportive care Prognosis remains guarded for this patient Time with Patient: Greater than 30
[2021-10-11 07:22] LABS: Glucose,Whole Blood 230 mg/dL (75-99)
[2021-10-11] MEDS: DEXAMETHASONE SOD PHOSPHATE 4 MG/ML 1 ML VIAL IVP SCH (07:54)
[2021-10-11] MEDS: GABAPENTIN 300 MG CAP PO SCH ×3 (07:55→21:35)
[2021-10-11] MEDS: INSULIN ASPART (NovoLOG) 100 UNIT/ML VIAL SQ SCH ×7 (07:55→21:35)
[2021-10-11] MEDS: ASPIRIN 325 MG TAB PO SCH (07:55)
[2021-10-11] MEDS: TAMSULOSIN 0.4 MG CAP.ER.24H PO SCH (07:55)
[2021-10-11] MEDS: FLUCONAZOLE 100 MG TAB PO SCH (07:55)
[2021-10-11] MEDS: CHOLECALCIFEROL 125 MCG (5000 IU) TABLET PO SCH (07:55)
[2021-10-11] MEDS: ZINC SULFATE 220 MG CAP PO SCH (07:56)
[2021-10-11] MEDS: ASCORBIC ACID 500 MG TAB PO SCH (07:56)
[2021-10-11] MEDS: carvediloL 12.5 MG TAB PO SCH ×2 (07:56→17:07)
[2021-10-11] MEDS: ENOXAPARIN 40 MG/0.4 ML SYRINGE SQ SCH ×2 (07:56→21:35)
[2021-10-11] MEDS: amLODIPine 5 MG TAB PO SCH (07:56)
[2021-10-11] MEDS: LIDOCAINE 5% PATCH TOPICAL SCH (07:56)
[2021-10-11] MEDS: SYMBICORT 80-4.5 MCG INHALER INHALATION SCH ×2 (08:25→20:19)
[2021-10-11] MEDS: TIOTROPIUM 2.5 MCG INHALER INHALATION SCH (08:25)
[2021-10-11] MEDS: ALBUTEROL HFA INHALER INHALATION SCH ×4 (08:25→20:19)
[2021-10-11 11:43] LABS: Basophils # (A) 0.02 X 10*3/uL (0.00-0.10); Basophils % (A) 0.2 %; Eosinophils # (A) 0.22 X 10*3/uL (0.04-0.35); Eosinophils % (A) 2.5 %; HCT 39.3 % (39.6-50.0); HGB 12.4 g/dL (13.0-17.0); Lymphocytes # (A) 2.33 X 10*3/uL (0.90-5.00); Lymphocytes % (A) 26.2 %; MCH 31.6 pg (27.0-32.0); MCHC 31.6 g/dL (32.0-37.0); Mean Platelet Volume 9.9 fL (9.5-12.2); Monocytes # (A) 0.83 X 10*3/uL (0.20-1.00); Monocytes % (A) 9.3 %; Neutrophils # (A) 5.35 X 10*3/uL (1.80-7.70); Neutrophils % (A) 60.3 %; Platelet Count 166 X 10*3/uL (140-440); RBC 3.93 X 10*6/uL (4.40-5.60); RDW 14.6 % (11.5-14.5); WBC 8.88 X 10*3/uL (4.50-10.00)
[2021-10-11 11:44] LABS: Glucose,Whole Blood 152 mg/dL (75-99)
[2021-10-11 12:20] LABS: African American GFR (CKD) 78.6 (60.0-200.0); BUN/Creat Ratio 35.66 Ratio (12.00-20.00); Blood Urea Nitrogen 37.8 mg/dL (9.0-27.0); Calcium 8.6 mg/dL (8.7-10.3); Carbon Dioxide 25.1 mmol/L (20.0-27.5); Non-African American GFR(CKD) 67.8 (60.0-200.0); Potassium 4.2 mmol/L (3.5-5.5)
--- NOTE | 2021-10-11 14:50 | P.PN ---
Subjective Progress Note Date: 10/11/21 Principal diagnosis: Dyspnea This is a 76-year-old male patient who follows with the [facility] system as his primary care provider. He has a history of chronic obstructive pulmonary disease, hypertension, hyperlipidemia, diabetes mellitus, obstructive sleep apnea maintained on CPAP at a pressure of 11 cm of water with C-Flex of 3. He has a 2 week history of increasing shortness of breath, cough and congestion. He presented here to the emergency room yesterday for the same. X-ray reveals bilateral patchy infiltrates left greater than right consistent with COVID-19 pneumonia. White count 8.2. Hemoglobin 12.0. D-dimer 2.07. Sodium 140. Potassium 4.0. Creatinine 1.4. AST 85. ALT 50. LDH 1625. C-reactive protein 38.4. Pro-calcitonin 4.89. [place] virus by PCR positive. He's been initiated on Decadron, vitamin supplements. If he did receive Lovenox 100 mg subcu once yesterday. Normal saline at 75 ML's per hour. He is seen today in consultation in the emergency department. He is currently sitting up awake and alert. Somewhat slow to respond. Somewhat of a poor historian. His daughter is present in the room in supplies most of the information. Is currently maintaining O2 saturations in the low 90s on 6 L high flow nasal cannula. He's been afebrile. Slightly tachycardic. Hypertensive. On 09/25/2021 patient seen in follow-up on medical surgical floor, he is a poor historian, he is currently sitting up in the recliner, he is currently on 8 L of oxygen and his oxygen demand has increased compared to yesterday when he was on 6 L per high flow nasal cannula. Pulse ox is currently 88-89%, he is afebrile, remains hypertensive with blood pressure in the 180s over 107, with a mean of 133 bpm. D-dimer came back elevated at 2.07, lower extremity Dopplers showed no evidence of DVTs in both. His been afebrile, does have a congestive cough, overall his mentation is confused and sleepy. He is currently on the Decadron 6 mg daily, he is on inhaled bronchodilators. Cough is congested, patient does have underlying history of COPD, we will add empiric antibiotics today. We'll obtain follow up pro-calcitonin level. Initial pro-calcitonin level on admission was elevated to 4.89. On 09/26/2021 patient seen in follow-up medical surgical floor. He is confused, but his responsive, he denies any acute distress. He was taken off the BiPAP support this morning, he is currently on 15 L high flow oxygen, and his pulse ox is 89-91%, he removes his oxygen at times, desaturates, becomes more confused. Low-grade fevers in the last 24 hours with a temp of 99.5F. Lung sounds reveal diffuse coarse inspiratory crackles throughout the lung baxter. No complaints of chest pain, occasional cough, no phlegm production. His chest x-ray today shows stable bibasilar and left peripheral COVID infiltrates, and 8 mm nodular density at the right lower lung with a recommendation of follow-up CT scanning of the chest to exclude underlying pulmonary nodule. Patient continues on Rocephin and azithromycin for empiric antibiotic coverage, he is on Decadron 6 mg daily, he is on prophylactic dose of Lovenox. Today's labs have been reviewed, his white blood cell count 8.12, hemoglobin is 12.4, serum sodium is 147, potassium is 4.0, chloride is 111, B1 is 32, creatinine is 1.2, ferritin level is improving and is down to 1227, LDH is down to 477, improved and CRP is also improving and is down to 7.8, follow up pro-calcitonin was improved and was down to 1.53. On 09/27/2021 patient seen in follow-up on medical surgical floor. He is curr ently sleeping, he is on BiPAP support, which he looks very comfortable on, breathing comfortably, BiPAP settings of 12 and 6 and FiO2 of 70%, his pulse ox is Usually better on BiPAP at 95%. On 15 L per high flow nasal cannula his pulse ox is 186%, afebrile, hemodynamically stable, still confused, not agitated. His last chest x-ray from 09/25/2001 showed stable bibasilar and left peripheral COVID infiltrates. Patient was also suspected to have bacteria superinfection, he was placed on azithromycin and Rocephin, his pro-calcitonin was improving, and is down to 0.73 on today's labs from the original value of 4.89 on 09/23/2021. White count is 8.4, hemoglobin is 0.8, his d-dimer is 3.19, sodium is 146, patient remains on D5W at 50 ML per hour, potassium 3.6, B1 is 29, creatinine is 1.His LDH is slightly improved and is down to 1164, CRP is 12.1, improved since admission. Appears to be in no acute distress. Appetite is poor, he is only consuming about 25% of his meals. On 09/29/2021 patient seen in follow-up on medical surgical floor. Patient remains confused, but more awake on today's exam, he has been alternating between BiPAP with pressures of 12.6 and FiO2 of 70% and 15 L high flow oxygen. Pulse ox is 91-92%, his been afebrile. He is only oriented to self, very disoriented to place and time, confused. Does not appear to be in respiratory distress. He does have a cough, which is congested and his mouth has dried up phlegm, oral mucous membranes are extremely dry. Patient has had very poor oral intake related to being BiPAP dependent. Currently tolerating high flow nasal cannula much better, although still remains very confused. But at this point probably able to tolerate some oral feedings. Lung sounds reveal diffuse rhonchi. Needs pulmonary toileting and aspiration precautions. Patient's family was in yesterday to see him for [place], and they were concerned about his altered mentation. We will obtain brain CT without today. Remains on antibiotics with azithromycin and Rocephin. He remains on D5W at a rate of 50 ML per hour, Decadron 6 mg daily and Lovenox 40 mg twice daily. His last d- dimer from yesterday was up trending was up to 6.07 at which point his Lovenox dose has been increased to twice daily. His serum sodium has normalized and was down to 144 on yesterday's labs. BUN is 28 creatinine is 1. Inflammatory markers were improving since admission and LDH was down to 413, and CRP was 8.6. Procalcitonin was down to 0.73 On 09/30/2021 patient seen in follow-up on medical surgical floor. he remains confused, but awake and alert, but his speech does not make sense. No unilateral weakness noted. Still significantly altered mentation. This morning he is on Airvo at 12/6 and FiO2 of 50%, his pulse ox is 91-95%. Today he has a strong effective cough, has a bit of a chest congestion, congested cough. Afebrile, hemodynamically he is stable. He asked to have the BiPAP mask removed, and he was placed on 15 L per high flow nasal cannula, breathing fairly comfortably. Yesterday's chest x-ray showed worsening left lower lobe consolidation with minimal infiltration through the right midlung. Patient is currently on a combination of azithromycin and Rocephin, his last pro-calcitonin was down to 0.73. Yesterday CT of the brain was obtained in view of altered mental status, and he was found to have a focal area of low attenuation in the right frontal lobe, stat neurology evaluation was requested, an MRI of the brain with and without to rule out acute CVA was recommended. However a subacute right frontal lobe CVA is suspected. Venous Doppler yesterday was negative for bilateral DVT, today's d-dimer is 3.92, serum sodium has normalized and is down to 142, potassium is 4.2, BUN is 29.8, creatinine is 1, but sugars in the 170s range, AST 39, ALT is 54, LDH is 419, CRP is 4.6. Vital signs show no evidence of fever, patient is in sinus mechanism with a controlled rate, blood pressure stable 130/86. Currently patient remains on D5W at a rate of 50 ML per hour, oral intake has been limited still. However he is able to take in some Ensure with supervision and assistance. He continues on multivitamins, he continues on Decadron. On 10/01/2021 patient seen in follow-up on medical surgical floor. He is resting comfortably in bed, he continues to be confused, although somewhat improved, he was able to tell nursing staff he was in the hospital, and that the month was September. He is not using BiPAP support, he is currently on 15 L of oxygen per high flow nasal cannula his pulse ox is 90%, breathing is nonlabored, lung sounds are positive for diminished breath sounds with some scattered crackles. No cough, no chest pain, while signs have been stable patient has been afebrile. He continues on Decadron 6 mg daily, Lovenox 40 mg twice daily, he is on Zosyn for empiric antibiotic coverage, today's labs have been reviewed, white blood cell count is 13.6, hemoglobin is 13, d-dimer was improving on yesterday's labs and was down to 3.92, today's level still pending, sodium is 141, potassium is 6.0, and this has hemolyzed, BUN is 28 and creatinine is 1, pro-calcitonin level is pending. On the 10/07/2021 patient seen in follow-up on medical surgical floor, he remains on high flow oxygen, currently on 15 L and his pulse ox is 92%, he is laying in bed, not clear if his been up with physical therapy in the chair, his speech is better, he is awake and alert, he is answering questions appropr iately, he is talking about his , he knows he is in [place], he knew he was in the hospital. His been afebrile, vital signs have been stable, breathing is nonlabored, lung sounds are positive for a few scattered rhonchi, patient remains on Zosyn for possibility of aspiration. Today's labs have been reviewed his white blood cell count is fairly stable over last several days at 12.28, hemoglobin is 12, his platelet count is 240, electrolytes were unremarkable, BUN was 32, and creatinine was 1. His last set of inflammatory markers from yesterday showed LDH of 268, and CRP of 0.30, significantly improved. Patient continues on Decadron 6 mg daily, he continues on Diflucan, and Zosyn as mentioned above he is on Symbicort and Spiriva in addition to albuterol. His chest x-ray today showing persistent low lung volumes with left greater than right bilateral lower lung opacities consistent with COVID-19 infection. No significant change from 2 days earlier. on 10/08/2021 patient seen in follow-up on medical surgical floor. He is currently awake and alert, does not appear to be in any acute distress, breathing currently, he still remains a high flow oxygen although we were able t o cut back to 13 L and his pulse ox is around 90-93%. According to the nursing staff patient was up to the commode with assistance, he is generally weak, during my evaluation patient was having a hard time even sitting up in bed, cannot support his own posture. He needs continue skilled physical therapy. Patient has poor balance, decreased strength, decreased endurance and poor cognition and safety awareness according to the PT progress notes. denies any worsening dyspnea, no chest pain, his been afebrile, vital signs have been stable, he is on a modified diet, however she requires assistance and supervision with meals. On 10/09/2021 patient seen in follow-up on medical surgical floor. He is currently on the commode, trying to have a bowel movement, he requires extensive assistance to get up on a commode, but tolerated activity fairly well, currently on 13 L of oxygen with a pulse ox of 98%, breathing is very stable, no cough, no chest pain, we'll drop the FiO2 down to 8 L and monitor his pulse oximetry, vital signs have been stable, his been afebrile, his inflammatory markers were improving on the labs from 10/06/2021. Neurologically he seems to be improving, he was able to finally travel downstairs to the MRI department to complete his brain MRI, which showed chronic appearing periventricular and deep white matter ischemic type changes, atrophy, left mastoiditis and acute right frontal sinusitis, old small infarct in the right frontal parietal region corresponding to the hypodense area on the CT exam of the brain. Patient currently remains on Decadron 6 daily, he is on inhaled bronchodilators with Symbicort and Spiriva is on Lovenox 40 mg twice daily. On 10/10/2021 patient seen in follow-up on medical surgical floor. Patient is breathing comfortably, he is currently on 8 L of oxygen, and his pulse ox is 94%, his FiO2 has been dropped down to 6 L, we'll continue to wean his FiO2, patient denies any worsening dyspnea or cough, vital signs have been stable, his been afebrile, he does have a few scattered rhonchi, overall less congested, he is trying to feed himself, appetite is fair, no complaints of chest discomfort, no phlegm production, no hemoptysis. He is on Decadron at 4 mg daily, she remains on Lovenox 40 mg BID, remains on multivitamins, and Symbicort and Spiriva, no acute events overnight. Patient has been working with physical therapy, however still requires extensive assistance related to his decreased strength and endurance. On 10/11/2021 patient seen in follow-up on medical surgical floor. He is currently down to 5 L of oxygen with pulse ox of 91-93%, breathing comfortably, since he is stable, less congested, yet due to no fever or chills, blood pressure is been stable, no acute events overnight, no complaints of dyspnea, c ough or chest discomfort, patient's oxygenation has been steadily improving. He currently remains on Symbicort, Ventolin, his Decadron dose has been dropped down to 4 mg daily, and she continues on Lovenox 40 mg twice daily. States that symptoms reviewed, his white count is 8.8, hemoglobin is 12.4, electrolytes are within normal limits, BUN is 27 and creatinine is 1.1. As been tolerating oral intake. No abdominal pain, no nausea or vomiting, patient has been working with physical therapy, he was able to take a few steps at the bedside however his gait is quite wobbly and weak, patient fatigues very quickly. Objective - Vital Signs Vital signs: Vital Signs Temp 97.9 F 10/11/21 14:00 Pulse 103 H 10/11/21 14:00 Resp 16 10/11/21 14:00 BP 126/76 10/11/21 14:00 Pulse Ox 91 L 10/11/21 14:00 Intake & Output 10/10/21 10/11/21 10/11/21 18:59 06:59 18:59 Intake Total 476 472 Output Total 1000 700 Balance -524 -700 472 Intake: Oral 476 472 Output: Urine 1000 700 Other: Voiding Method Indwelling Catheter Indwelling Catheter - Exam GENERAL EXAM: More awake, 76-year-old white male, currently on 5 L of oxygen with pulse ox of 92%, patient is currently up to the commode HEAD: Normocephalic/atraumatic. EYES: Normal reaction of pupils, equal size. Conjunctiva pink, sclera white. NOSE: Clear with pink turbinates. MOUTH: dry oral mucous membranes, with dried oral secretions THROAT: No erythema or exudates. NECK: No masses, no JVD, no thyroid enlargement, no adenopathy. CHEST: No chest wall deformity. Symmetrical expansion. LUNGS: Equal air entry with a few scattered crackles CVS: Regular rate and rhythm, normal S1 and S2, no gallops, no murmurs, no rubs ABDOMEN: Soft, nontender. No hepatosplenomegaly, normal bowel sounds, no guarding or rigidity. EXTREMITIES: No clubbing, no edema, no cyanosis, 2+ pulses and upper and lower extremities. MUSCULOSKELETAL: Muscle strength and tone normal. SPINE: No scoliosis or deformity SKIN: No rashes CENTRAL NERVOUS SYSTEM: Confused, but appears to be more alert, currently on 13 l/min. - Labs CBC & Chem 7: 10/11/21 07:10 10/11/21 07:10 Labs: Abnormal Lab Results - Last 24 Hours (Table) 10/10/21 10/10/21 10/11/21 Range/Units 16:48 20:25 07:10 RBC 3.93 L (4.40-5.60) X 10*6/uL Hgb 12.4 L (13.0-17.0) g/dL Hct 39.3 L (39.6-50.0) % MCV 100.0 H (80.0-97.0) fL MCHC 31.6 L (32.0-37.0) g/dL RDW 14.6 H (11.5-14.5) % Immature Gran # 0.13 H (0.00-0.04) X 10*3/uL BUN (9.0-27.0) mg/dL BUN/Creatinine Ratio (12.00-20.00) Ratio POC Glucose (mg/dL) 191 H 242 H (75-99) mg/dL Calcium (8.7-10.3) mg/dL 10/11/21 10/11/21 10/11/21 Range/Units 07:10 07:21 11:43 RBC (4.40-5.60) X 10*6/uL Hgb (13.0-17.0) g/dL Hct (39.6-50.0) % MCV (80.0-97.0) fL MCHC (32.0-37.0) g/dL RDW (11.5-14.5) % Immature Gran # (0.00-0.04) X 10*3/uL BUN 37.8 H (9.0-27.0) mg/dL BUN/Creatinine Ratio 35.66 H (12.00-20.00) Ratio POC Glucose (mg/dL) 230 H 152 H (75-99) mg/dL Calcium 8.6 L (8.7-10.3) mg/dL Assessment and Plan Plan: Assessment: #1. Acute hypoxic respiratory failure related to acute COVID-19 pneumonia, pos sibility of underlying pneumonia is also considered based on elevated pro- calcitonin level of 4.89. Patient presented to the hospital on 09/23/2021 with 2 weeks of symptoms, he was outside the window for Remdesivir. He is not vaccinated against COVID-19. Today on 10/08/2021 patient is on high flow oxygen at 13 L #2. Elevated pro-calcitonin level, suggesting possibility of underlying bacterial infection, patient was given Rocephin and azithromycin, and pro- calcitonin improved is down to 0.17, antibiotics have been discontinued, crit the patient just remains on Diflucan 100 mg daily. #3. Acute kidney injury related to dehydration and ATN, improved and resolved with IV hydration #4. Diabetes mellitus type 2 #5. Underlying history of sleep apnea on CPAP #6. Hypertension #7. Hyperlipidemia #8. Elevated d-dimer, with no evidence of DVT on lower extremity Dopplers #9. Hypernatremia, related to poor oral intake, improved with IV hydration with D5W #10. Pulmonary nodule, measuring 8 mm projecting at the right lower lobe, will need to be followed up on the CT of the chest with contrast #11. 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, CT of the brain without contrast on 09/28/2021 showed focal area of low attenuation in the right frontal lobe with abscess of the rush-white matter concerning for rush-white matter junction mass/edema or CVA, neurology is following #12. Altered mental status, related to the above, and subacute right frontal lobe CVA, improved Plan: Continue weaning FiO2, currently down to 5 L Breathing comfortably No worsening dyspnea or cough No fever or chills No complaints of chest pain, vital signs have been stable Patient is working with physical therapy, Discharge planning is in progress for fdc facility placement for subacute rehab Awaiting insurance authorization, otherwise stable to go to [facility] when the insurance authorization goes thru I performed a history & physical examination of the patient and discussed their management with my nurse practitioner, Terri Key. I reviewed the nurse practitioner's note and agree with the documented findings and plan of care. Lung sounds are positive for dim breath sounds throughout the lung baxter. The findings and the impression was discussed with the patient. I attest to the documentation by the nurse practitioner. Time with Patient: Less than 30
[2021-10-11 16:41] LABS: Glucose,Whole Blood 218 mg/dL (75-99)
[2021-10-11] MEDS: SODIUM CHLORIDE 0.9% 1,000 ML IV SCH (17:05)
[2021-10-11 20:16] LABS: Glucose,Whole Blood 209 mg/dL (75-99)
[2021-10-11] MEDS: ATORVASTATIN 10 MG TAB PO SCH (21:35)
[2021-10-11] MEDS: LATANOPROST 0.005% OPHTH DROPS 2.5 ML BTL BOTH EYES SCH (21:36)
[2021-10-12 06:56] LABS: Glucose,Whole Blood 128 mg/dL (75-99)
[2021-10-12] MEDS: INSULIN ASPART (NovoLOG) 100 UNIT/ML VIAL SQ SCH ×7 (07:05→21:50)
[2021-10-12] MEDS: TIOTROPIUM 2.5 MCG INHALER INHALATION SCH (08:31)
[2021-10-12] MEDS: SYMBICORT 80-4.5 MCG INHALER INHALATION SCH ×2 (08:31→19:07)
[2021-10-12] MEDS: ALBUTEROL HFA INHALER INHALATION SCH ×4 (08:31→19:07)
[2021-10-12] MEDS: TAMSULOSIN 0.4 MG CAP.ER.24H PO SCH (10:07)
[2021-10-12] MEDS: GABAPENTIN 300 MG CAP PO SCH ×3 (10:07→21:50)
[2021-10-12] MEDS: ZINC SULFATE 220 MG CAP PO SCH (10:07)
[2021-10-12] MEDS: carvediloL 12.5 MG TAB PO SCH ×3 (10:07→17:31)
[2021-10-12] MEDS: ASPIRIN 325 MG TAB PO SCH (10:07)
[2021-10-12] MEDS: amLODIPine 5 MG TAB PO SCH (10:07)
[2021-10-12] MEDS: CHOLECALCIFEROL 125 MCG (5000 IU) TABLET PO SCH (10:07)
[2021-10-12] MEDS: ASCORBIC ACID 500 MG TAB PO SCH (10:07)
[2021-10-12] MEDS: FLUCONAZOLE 100 MG TAB PO SCH (10:07)
[2021-10-12] MEDS: LIDOCAINE 5% PATCH TOPICAL SCH (10:08)
[2021-10-12] MEDS: DEXAMETHASONE SOD PHOSPHATE 4 MG/ML 1 ML VIAL IVP SCH (10:08)
[2021-10-12] MEDS: ENOXAPARIN 40 MG/0.4 ML SYRINGE SQ SCH ×2 (10:08→21:50)
[2021-10-12 10:45] LABS: African American GFR (CKD) 100.6 (60.0-200.0); BUN/Creat Ratio 45.75 Ratio (12.00-20.00); Blood Urea Nitrogen 36.6 mg/dL (9.0-27.0); Calcium 8.7 mg/dL (8.7-10.3); Magnesium 2.2 mg/dL (1.5-2.4); Non-African American GFR(CKD) 86.8 (60.0-200.0); Potassium 4.3 mmol/L (3.5-5.5)
[2021-10-12 11:48] LABS: Glucose,Whole Blood 186 mg/dL (75-99)
--- NOTE | 2021-10-12 14:00 | P.PN ---
Subjective Progress Note Date: 10/11/21 Principal diagnosis: Acute hypoxemic respiratory failure related to COVID-19 pneumonia 76-year-old male came in with complaints of shortness of breath cough has been going on for about the 2 weeks. Patient is hypoxic present has 6 L of oxygen. Found to have Covid 19 infection" is significant infiltrate on the chest x-ray with elevated liver enzymes elevated to calcitonin 4.89. Patient was also having diarrhea nausea vomiting. is bit dehydrated. Patient was a creatinine is 1.42 diabetes with us and is on metformin at home. 10/11/2021 patient seen and evaluated in follow-up on medical surgical floor; currently on 5 L of oxygen with pulse ox of 91-93% He currently remains on Symbicort, Ventolin, his Decadron dose has been dropped down to 4 mg daily, and she continues on Lovenox 40 mg twice daily. Lab work is reviewed and reveals white count is 8.8, hemoglobin is 12.4, electrolytes are within normal limits, BUN is 27 and creatinine is 1.1. Patient is working with physical therapy, Discharge planning is in progress for custodial facility placement for subacute rehab Awaiting insurance authorization, otherwise stable to go to [facility] when the insurance authorization is received Objective - Vital Signs Vital signs: Vital Signs Temp 97.9 F 10/11/21 10:00 Pulse 83 10/11/21 10:00 Resp 16 10/11/21 10:00 BP 108/67 10/11/21 10:00 Pulse Ox 91 L 10/11/21 10:00 Intake & Output 10/10/21 10/11/21 10/11/21 18:59 06:59 18:59 Intake Total 476 236 Output Total 1000 700 Balance -524 -700 236 Intake: Oral 476 236 Output: Urine 1000 700 Other: Voiding Method Indwelling Catheter Indwelling Catheter - Exam GENERAL: The patient is alert and oriented x1, mild respiratory distress. Well developed, well nourished. HEENT: Pupils are round and equally reacting to light. EOMI. No scleral icterus. No conjunctival pallor. Normocephalic, atraumatic. No pharyngeal erythema. No thyromegaly. CARDIOVASCULAR: S1 and S2 present. No murmurs, rubs, or gallops. PULMONARY: Coarse scttered rhonchi bilateral ABDOMEN: Soft, nontender, nondistended, normoactive bowel sounds. No palpable organomegaly. MUSCULOSKELETAL: No joint swelling or deformity. EXTREMITIES: No cyanosis, clubbing, mild peripheral edema NEUROLOGICAL: Gross neurological examination did not reveal any focal deficits. SKIN: No rashes. - Labs CBC & Chem 7: 10/11/21 07:10 10/12/21 06:12 Labs: Abnormal Lab Results - Last 24 Hours (Table) 10/10/21 10/10/21 10/11/21 Range/Units 16:48 20:25 07:10 RBC 3.93 L (4.40-5.60) X 10*6/uL Hgb 12.4 L (13.0-17.0) g/dL Hct 39.3 L (39.6-50.0) % MCV 100.0 H (80.0-97.0) fL MCHC 31.6 L (32.0-37.0) g/dL RDW 14.6 H (11.5-14.5) % Immature Gran # 0.13 H (0.00-0.04) X 10*3/uL BUN (9.0-27.0) mg/dL BUN/Creatinine Ratio (12.00-20.00) Ratio POC Glucose (mg/dL) 191 H 242 H (75-99) mg/dL Calcium (8.7-10.3) mg/dL 10/11/21 10/11/21 10/11/21 Range/Units 07:10 07:21 11:43 RBC (4.40-5.60) X 10*6/uL Hgb (13.0-17.0) g/dL Hct (39.6-50.0) % MCV (80.0-97.0) fL MCHC (32.0-37.0) g/dL RDW (11.5-14.5) % Immature Gran # (0.00-0.04) X 10*3/uL BUN 37.8 H (9.0-27.0) mg/dL BUN/Creatinine Ratio 35.66 H (12.00-20.00) Ratio POC Glucose (mg/dL) 230 H 152 H (75-99) mg/dL Calcium 8.6 L (8.7-10.3) mg/dL Assessment and Plan Assessment: -Acute hypoxic respiratory failure secondary to COVID 19 pneumonia; Patient doesn't qualify for a Remdesivir. on 15 L--13L--8L--6L hi flow -Possible aspiration pneumonia -Acute renal failure possibly secondary to intravascular depletion and dehydration, resolved at this time -Altered Mental status secondary to toxic encephalopathy from infection with a competent of her prolonged hospitalization leading to sundowners, rule out subacute stroke, neurology consult, MRI was done. no acute CVA -possibility of subacute to chronic CVA in the right anterior frontal lobe region -Type 2 diabetes mellitus with hyperglycemia, improving -Hypertension -Hyperlipidemia -transaminitis secondary to Covid 19 infection -Elevated D-Dimer secondary to Covid 19 infection -Elevated inflammatory markers of Covid 19 -Obstructive sleep apnea patient doesn't use any oxygen at home patient quit smoking many years ago DVT prophylaxis: Lovenox Plan MRI of the brain was done on 10/09. Showing chronic appearing periventricular and deep white matter ischemic changes and atrophy. Correlate for left mastoiditis and acute right frontal sinusitis. 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 Patient will be continued on aspirin and statins for secondary stroke prophylaxis. Patient is tolerating oral diet. PT OT and SPUD [employer]ER is following. Continue decadron, zinc, vitamins, lovenox Continue bronchodilators Titrate oxygen as needed Present insulin regimen Continue all other supportive care Prognosis remains guarded for this patient
--- NOTE | 2021-10-12 16:03 | P.PN ---
Subjective Progress Note Date: 10/12/21 This is a 76-year-old male patient who follows with the [facility] system as his primary care provider. He has a history of chronic obstructive pulmonary disease, hypertension, hyperlipidemia, diabetes mellitus, obstructive sleep apnea maintained on CPAP at a pressure of 11 cm of water with C-Flex of 3. He has a 2 week history of increasing shortness of breath, cough and congestion. He presented here to the emergency room yesterday for the same. X-ray reveals bilateral patchy infiltrates left greater than right consistent with COVID-19 pneumonia. White count 8.2. Hemoglobin 12.0. D-dimer 2.07. Sodium 140. Potassium 4.0. Creatinine 1.4. AST 85. ALT 50. LDH 1625. C-reactive protein 38.4. Pro-calcitonin 4.89. [place] virus by PCR positive. He's been initiated on Decadron, vitamin supplements. If he did receive Lovenox 100 mg subcu once yesterday. Normal saline at 75 ML's per hour. He is seen today in consultation in the emergency department. He is currently sitting up awake and alert. Somewhat slow to respond. Somewhat of a poor historian. His daughter is present in the room in supplies most of the information. Is currently maintaining O2 saturations in the low 90s on 6 L high flow nasal cannula. He's been afebrile. Slightly tachycardic. Hypertensive. On 09/25/2021 patient seen in follow-up on medical surgical floor, he is a poor historian, he is currently sitting up in the recliner, he is currently on 8 L of oxygen and his oxygen demand has increased compared to yesterday when he was on 6 L per high flow nasal cannula. Pulse ox is currently 88-89%, he is afebrile, remains hypertensive with blood pressure in the 180s over 107, with a mean of 133 bpm. D-dimer came back elevated at 2.07, lower extremity Dopplers showed no evidence of DVTs in both. His been afebrile, does have a congestive cough, overall his mentation is confused and sleepy. He is currently on the Decadron 6 mg daily, he is on inhaled bronchodilators. Cough is congested, patient does have underlying history of COPD, we will add empiric antibiotics today. We'll obtain follow up pro-calcitonin level. Initial pro-calcitonin level on admission was elevated to 4.89. On 09/26/2021 patient seen in follow-up medical surgical floor. He is confused, but his responsive, he denies any acute distress. He was taken off the BiPAP support this morning, he is currently on 15 L high flow oxygen, and his pulse ox is 89-91%, he removes his oxygen at times, desaturates, becomes more confused. Low-grade fevers in the last 24 hours with a temp of 99.5F. Lung sounds reveal diffuse coarse inspiratory crackles throughout the lung baxter. No complaints of chest pain, occasional cough, no phlegm production. His chest x-ray today shows stable bibasilar and left peripheral COVID infiltrates, and 8 mm nodular density at the right lower lung with a recommendation of follow-up CT scanning of the chest to exclude underlying pulmonary nodule. Patient continues on Rocephin and azithromycin for empiric antibiotic coverage, he is on Decadron 6 mg daily, he is on prophylactic dose of Lovenox. Today's labs have been reviewed, his white blood cell count 8.12, hemoglobin is 12.4, serum sodium is 147, potassium is 4.0, chloride is 111, B1 is 32, creatinine is 1.2, ferritin level is improving and is down to 1227, LDH is down to 477, improved and CRP is also improving and is down to 7.8, follow up pro-calcitonin was improved and was down to 1.53. On 09/27/2021 patient seen in follow-up on medical surgical floor. He is currently sleeping, he is on BiPAP support, which he looks very comfortable on, breathing comfortably, BiPAP settings of 12 and 6 and FiO2 of 70%, his pulse ox is Usually better on BiPAP at 95%. On 15 L per high flow nasal cannula his pulse ox is 186%, afebrile, hemodynamically stable, still confused, not agitated. His last chest x-ray from 09/25/2001 showed stable bibasilar and left peripheral COVID infiltrates. Patient was also suspected to have bacteria superinfection, he was placed on azithromycin and Rocephin, his pro-calcitonin was improving, and is down to 0.73 on today's labs from the original value of 4.89 on 09/23/2021. White count is 8.4, hemoglobin is 0.8, his d-dimer is 3.19, sodium is 146, patient remains on D5W at 50 ML per hour, potassium 3.6, B1 is 29, creatinine is 1.His LDH is slightly improved and is down to 1164, CRP is 12. 1, improved since admission. Appears to be in no acute distress. Appetite is poor, he is only consuming about 25% of his meals. The patient is seen today 09/28/2021 in follow-up on the regular medical floor. He is currently resting comfortably in bed. Arousable, drifts off easily, in no acute distress. He is currently on 15 L high flow nasal cannula. He has been utilizing the BiPAP as well with settings of 12/6 and 70% FiO2. He has normal saline running at 50 MLS per hour. D-dimer 6.07. Sodium 144. Potassium 3.8. Creatinine 1.0. LDH 413. C-reactive protein 8.6. Blood glucose 161. He remains on Lovenox 40 mg twice a day, Decadron, bronchodilators, vitamin supplements. He is on antibiotics in the form of ceftriaxone and azithromycin. The patient is seen today 10/02/2021 in follow-up on the regular medical floor. He has been slow to progress. He is still requiring 15 L high flow nasal cannula to maintain O2 saturations in the 90s. He has not worn BiPAP. He continues with a loose nonproductive cough. He is continued on Symbicort, Spiriva, albuterol, Decadron, Lovenox, vitamin supplements. Remains on D5W at 100 ML's per hour. Computed tomography scan of the head revealed possibility of subacute to chronic CVA in the right anterior frontal lobe lesion. Mass lesion less likely. Awaiting MRI of the brain. Echocardiogram pending. Blood glucose 157. The patient is seen today 10/03/2021 in follow-up on the regular medical floor. Currently resting fairly comfortably in bed. Awake and alert somewhat confused to time and place. He is on 15 L high flow nasal cannula to maintain O2 saturations in the low 90s. He's been afebrile. Hemodynamically stable. White count 12.9. Hemoglobin 12.9. Sodium 142. Potassium 4.3. Creatinine 1.0. Glucose 175. LDH 323. C-reactive protein 1.5. He is continued on Decadron, Lovenox, vitamin supplements. Remains on antibiotics in the form of Zosyn. Continue on Symbicort, Spiriva, albuterol. The patient is seen today 10/04/2021 in follow-up on the regular medical floor. He is awake and alert in no acute distress. Somewhat confused to time and place. He is resting comfortably in bed. He is still requiring 15 L high flow nasal cannula to maintain O2 saturation the high 80s low 90s. He's been afebril e. Hemodynamically stable. Blood glucose 177. He remains on Zosyn. Continued on Decadron, Lovenox, vitamin supplements. Continued on bronchodilators. The patient is seen today 10/05/2021 in follow-up on the regular medical floor. He is currently resting comfortably in bed. Remains a bit confused. He has is maintaining O2 saturations in the high 80s low 90s on 15 L high flow nasal cannula. He is afebrile. Hemodynamically stable. Chest x-ray continues to show similar left lower lung base and mid lung airspace opacities. No evidence of pneumothorax. D-dimer 2.0. Blood glucose 180. The patient is seen today 10/06/2019 follow-up on the regular medical floor. He remains awake and alert. Slow to respond. Sometimes confused sometimes alert and oriented 3. He is resting comfortably in bed. Currently on 15 L high flow nasal cannula. He does have oral thrush noted. We'll be initiated on Diflucan. He is continued on Zosyn. He remains on Lovenox, Decadron, vitamin supplem ents. Continued on bronchodilators. White count 11.0. Hemoglobin 12.2. Sodium 142. Potassium 4.3. Creatinine 1.1. LDH 268. C-reactive protein 0.30. The patient is seen today 10/12/2021 in follow-up on the regular medical floor. He is currently sitting up in bed. Awake and alert in no acute distress. Currently maintaining O2 saturations in the high 80s low 90s on 5 L/m per nasal cannula. Sodium 142. Potassium 4.3. Creatinine 0.8. Glucose 140. He is continued on Symbicort, IV rebound, albuterol, Decadron, Lovenox, vitamin supplements. Objective - Vital Signs Vital signs: Vital Signs Temp 97.7 F 10/12/21 13:34 Pulse 97 10/12/21 13:34 Resp 17 10/12/21 13:34 BP 96/65 10/12/21 13:34 Pulse Ox 90 L 10/12/21 13:34 Intake & Output 10/11/21 10/12/21 10/12/21 18:59 06:59 18:59 Intake Total 708 Output Total 1100 Balance -392 Intake: Oral 708 Output: Urine 1100 Other: Voiding Method Indwelling Catheter Diaper Diaper # Voids 1 - Exam GENERAL EXAM: Awake, alert, pleasant 76-year-old male patient, on 5 L high flow nasal cannula, breathing comfortably, HEAD: Normocephalic/atraumatic. EYES: Normal reaction of pupils, equal size. Conjunctiva pink, sclera white. NOSE: Clear with pink turbinates. THROAT: No erythema or exudates. NECK: No masses, no JVD, no thyroid enlargement, no adenopathy. CHEST: No chest wall deformity. Symmetrical expansion. LUNGS: Equal air entry with coarse crackles in the posterior bases CVS: Regular rate and rhythm, normal S1 and S2, no gallops, no murmurs, no rubs ABDOMEN: Soft, nontender. No hepatosplenomegaly, normal bowel sounds, no guarding or rigidity. EXTREMITIES: No clubbing, no edema, no cyanosis, 2+ pulses and upper and lower extremities. MUSCULOSKELETAL: Muscle strength and tone normal. SPINE: No scoliosis or deformity SKIN: No rashes CENTRAL NERVOUS SYSTEM: Alert, confused at times, slow to respond. No focal deficits, tone is normal in all 4 extremities. - Labs CBC & Chem 7: 10/11/21 07:10 10/12/21 06:12 Labs: Abnormal Lab Results - Last 24 Hours (Table) 10/11/21 10/11/21 10/12/21 Range/Units 16:36 20:14 06:12 BUN 36.6 H (9.0-27.0) mg/dL BUN/Creatinine Ratio 45.75 H (12.00-20.00) Ratio Glucose 140 H (70-110) mg/dL POC Glucose (mg/dL) 218 H 209 H (75-99) mg/dL 10/12/21 10/12/21 Range/Units 06:53 11:45 BUN (9.0-27.0) mg/dL BUN/Creatinine Ratio (12.00-20.00) Ratio Glucose (70-110) mg/dL POC Glucose (mg/dL) 128 H 186 H (75-99) mg/dL Assessment and Plan Assessment: 1 Acute hypoxic respiratory failure related to acute COVID-19 pneumonia, possibility of underlying pneumonia is also considered based on elevated pro- calcitonin level of 4.89. Patient presented to the hospital on 09/23/2021 with 2 weeks of symptoms, he was outside the window for Remdesivir. He is not vaccinated against COVID-19. Not a candidate for Baricitinib, completed Zosyn. Today on 10/12/2021 patient is on high flow oxygen at 5 L. Chest x-ray continues to show mid and left lower lung infiltrate and air space opacities. 2 Elevated pro-calcitonin level, suggesting possibility of underlying bacterial infection, currently on Zosyn, improving is down to 0.17 3 Acute kidney injury related to dehydration and ATN, improved with IV hydration and the creatinine 0.8 4 Diabetes mellitus type 2 5 Underlying history of sleep apnea on CPAP 6 Hypertension 7 Hyperlipidemia 8 Elevated d-dimer, with no evidence of DVT on lower extremity Dopplers 9 Hypernatremia, related to poor oral intake, improved with IV hydration with D5W 10 Pulmonary nodule, measuring 8 mm projecting at the right lower lobe, will need to be followed up on the CT of the chest with contrast 11 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, CT of the brain without contrast on 09/28/2021 showed focal area of low attenuation in the right frontal lobe with abscess of the rush-white matter concerning for rush-white matter junction mass/edema or CVA, neurology is following awaiting MRI of the brain 12 Altered mental status, related to the above, and possibility of subacute right frontal lobe CVA Plan: The patient was seen and evaluated Currently on 5 L high flow nasal cannula Titrate the FiO2 as tolerated Continue bronchodilators Continued on Lovenox, Decadron, vitamin supplements Prognosis is guarded We will continue to follow I, the cosigning physician, performed a history & physical examination of the patient. Lungs sounds are coarse crackles in the bilateral bases. Maintaining good O2 saturations in the 90s on 5 L high flow nasal cannula I discussed the a ssessment and plan of care with my nurse practitioner, Iraida Jimenez. I attest to the above note as dictated by her.
[2021-10-12 16:26] LABS: Glucose,Whole Blood 326 mg/dL (75-99)
[2021-10-12 20:36] LABS: Glucose,Whole Blood 327 mg/dL (75-99)
[2021-10-12] MEDS: SODIUM CHLORIDE 0.9% 1,000 ML IV SCH (21:49)
[2021-10-12] MEDS: ATORVASTATIN 10 MG TAB PO SCH (21:50)
[2021-10-12] MEDS: LATANOPROST 0.005% OPHTH DROPS 2.5 ML BTL BOTH EYES SCH (21:54)
[2021-10-13 06:50] LABS: Glucose,Whole Blood 123 mg/dL (75-99)
[2021-10-13] MEDS: INSULIN ASPART (NovoLOG) 100 UNIT/ML VIAL SQ SCH ×7 (07:04→22:09)
[2021-10-13] MEDS: DEXAMETHASONE SOD PHOSPHATE 4 MG/ML 1 ML VIAL IVP SCH (08:30)
[2021-10-13] MEDS: ENOXAPARIN 40 MG/0.4 ML SYRINGE SQ SCH ×2 (08:30→22:08)
[2021-10-13] MEDS: amLODIPine 5 MG TAB PO SCH (08:31)
[2021-10-13] MEDS: CHOLECALCIFEROL 125 MCG (5000 IU) TABLET PO SCH (08:31)
[2021-10-13] MEDS: TAMSULOSIN 0.4 MG CAP.ER.24H PO SCH (08:31)
[2021-10-13] MEDS: GABAPENTIN 300 MG CAP PO SCH ×3 (08:31→22:08)
[2021-10-13] MEDS: LIDOCAINE 5% PATCH TOPICAL SCH (08:31)
[2021-10-13] MEDS: carvediloL 12.5 MG TAB PO SCH ×2 (08:31→17:36)
[2021-10-13] MEDS: FLUCONAZOLE 100 MG TAB PO SCH (08:31)
[2021-10-13] MEDS: ASPIRIN 325 MG TAB PO SCH (08:31)
[2021-10-13] MEDS: ZINC SULFATE 220 MG CAP PO SCH (08:31)
[2021-10-13] MEDS: ASCORBIC ACID 500 MG TAB PO SCH (08:31)
[2021-10-13] MEDS: ALBUTEROL HFA INHALER INHALATION SCH ×4 (08:52→19:47)
[2021-10-13] MEDS: SYMBICORT 80-4.5 MCG INHALER INHALATION SCH ×2 (08:52→19:47)
[2021-10-13] MEDS: TIOTROPIUM 2.5 MCG INHALER INHALATION SCH (08:52)
[2021-10-13 11:35] LABS: Glucose,Whole Blood 214 mg/dL (75-99)
--- NOTE | 2021-10-13 15:04 | P.PN ---
Subjective Progress Note Date: 10/13/21 Principal diagnosis: Dyspnea This is a 76-year-old male patient who follows with the [facility] system as his primary care provider. He has a history of chronic obstructive pulmonary disease, hypertension, hyperlipidemia, diabetes mellitus, obstructive sleep apnea maintained on CPAP at a pressure of 11 cm of water with C-Flex of 3. He has a 2 week history of increasing shortness of breath, cough and congestion. He presented here to the emergency room yesterday for the same. X-ray reveals bilateral patchy infiltrates left greater than right consistent with COVID-19 pneumonia. White count 8.2. Hemoglobin 12.0. D-dimer 2.07. Sodium 140. Potassium 4.0. Creatinine 1.4. AST 85. ALT 50. LDH 1625. C-reactive protein 38.4. Pro-calcitonin 4.89. [place] virus by PCR positive. He's been initiated on Decadron, vitamin supplements. If he did receive Lovenox 100 mg subcu once yesterday. Normal saline at 75 ML's per hour. He is seen today in consultation in the emergency department. He is currently sitting up awake and alert. Somewhat slow to respond. Somewhat of a poor historian. His daughter is present in the room in supplies most of the information. Is currently maintaining O2 saturations in the low 90s on 6 L high flow nasal cannula. He's been afebrile. Slightly tachycardic. Hypertensive. On 09/25/2021 patient seen in follow-up on medical surgical floor, he is a poor historian, he is currently sitting up in the recliner, he is currently on 8 L of oxygen and his oxygen demand has increased compared to yesterday when he was on 6 L per high flow nasal cannula. Pulse ox is currently 88-89%, he is afebrile, remains hypertensive with blood pressure in the 180s over 107, with a mean of 133 bpm. D-dimer came back elevated at 2.07, lower extremity Dopplers showed no evidence of DVTs in both. His been afebrile, does have a congestive cough, overall his mentation is confused and sleepy. He is currently on the Decadron 6 mg daily, he is on inhaled bronchodilators. Cough is congested, patient does have underlying history of COPD, we will add empiric antibiotics today. We'll obtain follow up pro-calcitonin level. Initial pro-calcitonin level on admission was elevated to 4.89. On 09/26/2021 patient seen in follow-up medical surgical floor. He is confused, but his responsive, he denies any acute distress. He was taken off the BiPAP support this morning, he is currently on 15 L high flow oxygen, and his pulse ox is 89-91%, he removes his oxygen at times, desaturates, becomes more confused. Low-grade fevers in the last 24 hours with a temp of 99.5F. Lung sounds reveal diffuse coarse inspiratory crackles throughout the lung baxter. No complaints of chest pain, occasional cough, no phlegm production. His chest x-ray today shows stable bibasilar and left peripheral COVID infiltrates, and 8 mm nodular density at the right lower lung with a recommendation of follow-up CT scanning of the chest to exclude underlying pulmonary nodule. Patient continues on Rocephin and azithromycin for empiric antibiotic coverage, he is on Decadron 6 mg daily, he is on prophylactic dose of Lovenox. Today's labs have been reviewed, his white blood cell count 8.12, hemoglobin is 12.4, serum sodium is 147, potassium is 4.0, chloride is 111, B1 is 32, creatinine is 1.2, ferritin level is improving and is down to 1227, LDH is down to 477, improved and CRP is also improving and is down to 7.8, follow up pro-calcitonin was improved and was down to 1.53. On 09/27/2021 patient seen in follow-up on medical surgical floor. He is curr ently sleeping, he is on BiPAP support, which he looks very comfortable on, breathing comfortably, BiPAP settings of 12 and 6 and FiO2 of 70%, his pulse ox is Usually better on BiPAP at 95%. On 15 L per high flow nasal cannula his pulse ox is 186%, afebrile, hemodynamically stable, still confused, not agitated. His last chest x-ray from 09/25/2001 showed stable bibasilar and left peripheral COVID infiltrates. Patient was also suspected to have bacteria superinfection, he was placed on azithromycin and Rocephin, his pro-calcitonin was improving, and is down to 0.73 on today's labs from the original value of 4.89 on 09/23/2021. White count is 8.4, hemoglobin is 0.8, his d-dimer is 3.19, sodium is 146, patient remains on D5W at 50 ML per hour, potassium 3.6, B1 is 29, creatinine is 1.His LDH is slightly improved and is down to 1164, CRP is 12.1, improved since admission. Appears to be in no acute distress. Appetite is poor, he is only consuming about 25% of his meals. On 09/29/2021 patient seen in follow-up on medical surgical floor. Patient remains confused, but more awake on today's exam, he has been alternating between BiPAP with pressures of 12.6 and FiO2 of 70% and 15 L high flow oxygen. Pulse ox is 91-92%, his been afebrile. He is only oriented to self, very disoriented to place and time, confused. Does not appear to be in respiratory distress. He does have a cough, which is congested and his mouth has dried up phlegm, oral mucous membranes are extremely dry. Patient has had very poor oral intake related to being BiPAP dependent. Currently tolerating high flow nasal cannula much better, although still remains very confused. But at this point probably able to tolerate some oral feedings. Lung sounds reveal diffuse rhonchi. Needs pulmonary toileting and aspiration precautions. Patient's family was in yesterday to see him for [place], and they were concerned about his altered mentation. We will obtain brain CT without today. Remains on antibiotics with azithromycin and Rocephin. He remains on D5W at a rate of 50 ML per hour, Decadron 6 mg daily and Lovenox 40 mg twice daily. His last d- dimer from yesterday was up trending was up to 6.07 at which point his Lovenox dose has been increased to twice daily. His serum sodium has normalized and was down to 144 on yesterday's labs. BUN is 28 creatinine is 1. Inflammatory markers were improving since admission and LDH was down to 413, and CRP was 8.6. Procalcitonin was down to 0.73 On 09/30/2021 patient seen in follow-up on medical surgical floor. he remains confused, but awake and alert, but his speech does not make sense. No unilateral weakness noted. Still significantly altered mentation. This morning he is on Airvo at 12/6 and FiO2 of 50%, his pulse ox is 91-95%. Today he has a strong effective cough, has a bit of a chest congestion, congested cough. Afebrile, hemodynamically he is stable. He asked to have the BiPAP mask removed, and he was placed on 15 L per high flow nasal cannula, breathing fairly comfortably. Yesterday's chest x-ray showed worsening left lower lobe consolidation with minimal infiltration through the right midlung. Patient is currently on a combination of azithromycin and Rocephin, his last pro-calcitonin was down to 0.73. Yesterday CT of the brain was obtained in view of altered mental status, and he was found to have a focal area of low attenuation in the right frontal lobe, stat neurology evaluation was requested, an MRI of the brain with and without to rule out acute CVA was recommended. However a subacute right frontal lobe CVA is suspected. Venous Doppler yesterday was negative for bilateral DVT, today's d-dimer is 3.92, serum sodium has normalized and is down to 142, potassium is 4.2, BUN is 29.8, creatinine is 1, but sugars in the 170s range, AST 39, ALT is 54, LDH is 419, CRP is 4.6. Vital signs show no evidence of fever, patient is in sinus mechanism with a controlled rate, blood pressure stable 130/86. Currently patient remains on D5W at a rate of 50 ML per hour, oral intake has been limited still. However he is able to take in some Ensure with supervision and assistance. He continues on multivitamins, he continues on Decadron. On 10/01/2021 patient seen in follow-up on medical surgical floor. He is resting comfortably in bed, he continues to be confused, although somewhat improved, he was able to tell nursing staff he was in the hospital, and that the month was September. He is not using BiPAP support, he is currently on 15 L of oxygen per high flow nasal cannula his pulse ox is 90%, breathing is nonlabored, lung sounds are positive for diminished breath sounds with some scattered crackles. No cough, no chest pain, while signs have been stable patient has been afebrile. He continues on Decadron 6 mg daily, Lovenox 40 mg twice daily, he is on Zosyn for empiric antibiotic coverage, today's labs have been reviewed, white blood cell count is 13.6, hemoglobin is 13, d-dimer was improving on yesterday's labs and was down to 3.92, today's level still pending, sodium is 141, potassium is 6.0, and this has hemolyzed, BUN is 28 and creatinine is 1, pro-calcitonin level is pending. On the 10/07/2021 patient seen in follow-up on medical surgical floor, he remains on high flow oxygen, currently on 15 L and his pulse ox is 92%, he is laying in bed, not clear if his been up with physical therapy in the chair, his speech is better, he is awake and alert, he is answering questions appropr iately, he is talking about his , he knows he is in [place], he knew he was in the hospital. His been afebrile, vital signs have been stable, breathing is nonlabored, lung sounds are positive for a few scattered rhonchi, patient remains on Zosyn for possibility of aspiration. Today's labs have been reviewed his white blood cell count is fairly stable over last several days at 12.28, hemoglobin is 12, his platelet count is 240, electrolytes were unremarkable, BUN was 32, and creatinine was 1. His last set of inflammatory markers from yesterday showed LDH of 268, and CRP of 0.30, significantly improved. Patient continues on Decadron 6 mg daily, he continues on Diflucan, and Zosyn as mentioned above he is on Symbicort and Spiriva in addition to albuterol. His chest x-ray today showing persistent low lung volumes with left greater than right bilateral lower lung opacities consistent with COVID-19 infection. No significant change from 2 days earlier. on 10/08/2021 patient seen in follow-up on medical surgical floor. He is currently awake and alert, does not appear to be in any acute distress, breathing currently, he still remains a high flow oxygen although we were able t o cut back to 13 L and his pulse ox is around 90-93%. According to the nursing staff patient was up to the commode with assistance, he is generally weak, during my evaluation patient was having a hard time even sitting up in bed, cannot support his own posture. He needs continue skilled physical therapy. Patient has poor balance, decreased strength, decreased endurance and poor cognition and safety awareness according to the PT progress notes. denies any worsening dyspnea, no chest pain, his been afebrile, vital signs have been stable, he is on a modified diet, however she requires assistance and supervision with meals. On 10/09/2021 patient seen in follow-up on medical surgical floor. He is currently on the commode, trying to have a bowel movement, he requires extensive assistance to get up on a commode, but tolerated activity fairly well, currently on 13 L of oxygen with a pulse ox of 98%, breathing is very stable, no cough, no chest pain, we'll drop the FiO2 down to 8 L and monitor his pulse oximetry, vital signs have been stable, his been afebrile, his inflammatory markers were improving on the labs from 10/06/2021. Neurologically he seems to be improving, he was able to finally travel downstairs to the MRI department to complete his brain MRI, which showed chronic appearing periventricular and deep white matter ischemic type changes, atrophy, left mastoiditis and acute right frontal sinusitis, old small infarct in the right frontal parietal region corresponding to the hypodense area on the CT exam of the brain. Patient currently remains on Decadron 6 daily, he is on inhaled bronchodilators with Symbicort and Spiriva is on Lovenox 40 mg twice daily. On 10/10/2021 patient seen in follow-up on medical surgical floor. Patient is breathing comfortably, he is currently on 8 L of oxygen, and his pulse ox is 94%, his FiO2 has been dropped down to 6 L, we'll continue to wean his FiO2, patient denies any worsening dyspnea or cough, vital signs have been stable, his been afebrile, he does have a few scattered rhonchi, overall less congested, he is trying to feed himself, appetite is fair, no complaints of chest discomfort, no phlegm production, no hemoptysis. He is on Decadron at 4 mg daily, she remains on Lovenox 40 mg BID, remains on multivitamins, and Symbicort and Spiriva, no acute events overnight. Patient has been working with physical therapy, however still requires extensive assistance related to his decreased strength and endurance. On 10/11/2021 patient seen in follow-up on medical surgical floor. He is currently down to 5 L of oxygen with pulse ox of 91-93%, breathing comfortably, since he is stable, less congested, yet due to no fever or chills, blood pressure is been stable, no acute events overnight, no complaints of dyspnea, c ough or chest discomfort, patient's oxygenation has been steadily improving. He currently remains on Symbicort, Ventolin, his Decadron dose has been dropped down to 4 mg daily, and she continues on Lovenox 40 mg twice daily. States that symptoms reviewed, his white count is 8.8, hemoglobin is 12.4, electrolytes are within normal limits, BUN is 27 and creatinine is 1.1. As been tolerating oral intake. No abdominal pain, no nausea or vomiting, patient has been working with physical therapy, he was able to take a few steps at the bedside however his gait is quite wobbly and weak, patient fatigues very quickly. On 10/13/2021 patient seen in follow-up on medical surgical floor, he is current ly on 5 L of oxygen breathing comfortably, his pulse ox is 95%, has mild congestive cough, no chest discomfort, his been afebrile, hemodynamically has been stable, occasional cough, no phlegm production. No new chest x-ray, his labs from yesterday showed normal electrolytes, BUN of 36, creatinine 0.8, no other labs. he currently continues on albuterol, Symbicort, Decadron 4 mg daily, all dosed Diflucan 100 mg daily, she is on Spiriva. His been working with physical therapy, he is awaiting insurance authorization for placement to [facility]. Objective - Vital Signs Vital signs: Vital Signs Temp 97.7 F 10/13/21 08:32 Pulse 78 10/13/21 08:32 Resp 17 10/13/21 08:32 BP 109/72 10/13/21 08:32 Pulse Ox 95 10/13/21 08:32 Intake & Output 10/12/21 10/13/21 10/13/21 18:59 06:59 18:59 Intake Total 560 Output Total 225 Balance 560 -225 Intake: Intake, IV Titration 160 Amount Sodium Chloride 0.9% 1, 160 000 ml @ 20 mls/hr IV . Q24H [facility] Rx#:[id number] Oral 400 Output: Urine 225 Other: Voiding Method Diaper Diaper Diaper External Catheter External Catheter # Voids 3 2 # Bowel Movements 0 - Exam GENERAL EXAM: More awake, 76-year-old white male, currently on 5 L of oxygen with pulse ox of 95%, patient is currently up to the commode HEAD: Normocephalic/atraumatic. EYES: Normal reaction of pupils, equal size. Conjunctiva pink, sclera white. NOSE: Clear with pink turbinates. MOUTH: dry oral mucous membranes, with dried oral secretions THROAT: No erythema or exudates. NECK: No masses, no JVD, no thyroid enlargement, no adenopathy. CHEST: No chest wall deformity. Symmetrical expansion. LUNGS: Equal air entry with a few scattered crackles CVS: Regular rate and rhythm, normal S1 and S2, no gallops, no murmurs, no rubs ABDOMEN: Soft, nontender. No hepatosplenomegaly, normal bowel sounds, no guarding or rigidity. EXTREMITIES: No clubbing, no edema, no cyanosis, 2+ pulses and upper and lower extremities. MUSCULOSKELETAL: Muscle strength and tone normal. SPINE: No scoliosis or deformity SKIN: No rashes CENTRAL NERVOUS SYSTEM: Confused, but appears to be more alert, currently on 13 l/min. - Labs CBC & Chem 7: 10/11/21 07:10 10/12/21 06:12 Labs: Abnormal Lab Results - Last 24 Hours (Table) 10/12/21 10/12/21 10/13/21 Range/Units 16:21 20:34 06:48 POC Glucose (mg/dL) 326 H 327 H 123 H (75-99) mg/dL 10/13/21 Range/Units 11:32 POC Glucose (mg/dL) 214 H (75-99) mg/dL Assessment and Plan Plan: Assessment: #1. Acute hypoxic respiratory failure related to acute COVID-19 pneumonia, possibility of underlying pneumonia is also considered based on elevated pro- calcitonin level of 4.89. Patient presented to the hospital on 09/23/2021 with 2 weeks of symptoms, he was outside the window for Remdesivir. He is not vacci nated against COVID-19. Today on 10/08/2021 patient is on high flow oxygen at 13 L #2. Elevated pro-calcitonin level, suggesting possibility of underlying bacterial infection, patient was given Rocephin and azithromycin, and pro- calcitonin improved is down to 0.17, antibiotics have been discontinued, crit the patient just remains on Diflucan 100 mg daily. #3. Acute kidney injury related to dehydration and ATN, improved and resolved with IV hydration #4. Diabetes mellitus type 2 #5. Underlying history of sleep apnea on CPAP #6. Hypertension #7. Hyperlipidemia #8. Elevated d-dimer, with no evidence of DVT on lower extremity Dopplers #9. Hypernatremia, related to poor oral intake, improved with IV hydration with D5W #10. Pulmonary nodule, measuring 8 mm projecting at the right lower lobe, will need to be followed up on the CT of the chest with contrast #11. 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, CT of the brain without contrast on 09/28/2021 showed focal area of low attenuation in the right frontal lobe with abscess of the rush-white matter concerning for rush-white matter junction mass/edema or CVA, neurology is following #12. Altered mental status, related to the above, and subacute right frontal lobe CVA, improved Plan: Continue weaning FiO2 Oxygenation has been stable, and improving FiO2 has been cut back to 4 L Maintain aspiration precautions We'll cut Decadron to 2 mg daily Continue current dose Lovenox Continue multivitamins Continue inhaled bronchodilators Awaiting insurance authorization for ECF placement Stable for discharge to ECF when authorization is obtained I performed a history & physical examination of the patient and discussed their management with my nurse practitioner, Terri Key. I reviewed the nurse practitioner's note and agree with the documented findings and plan of care. Lung sounds are positive for dim breath sounds throughout the lung baxter. The findings and the impression was discussed with the patient. I attest to the documentation by the nurse practitioner. Time with Patient: Less than 30
[2021-10-13 17:06] LABS: Glucose,Whole Blood 199 mg/dL (75-99)
--- NOTE | 2021-10-13 18:40 | P.PN ---
Subjective Progress Note Date: 10/13/21 Principal diagnosis: Acute hypoxemic respiratory failure related to COVID-19 pneumonia 76-year-old male came in with complaints of shortness of breath cough has been going on for about the 2 weeks. Patient is hypoxic present has 6 L of oxygen. Found to have Covid 19 infection" is significant infiltrate on the chest x-ray with elevated liver enzymes elevated to calcitonin 4.89. Patient was also having diarrhea nausea vomiting. is bit dehydrated. Patient was a creatinine is 1.42 diabetes with us and is on metformin at home. 10/11/2021 patient seen and evaluated in follow-up on medical surgical floor; currently on 5 L of oxygen with pulse ox of 91-93% He currently remains on Symbicort, Ventolin, his Decadron dose has been dropped down to 4 mg daily, and she continues on Lovenox 40 mg twice daily. Lab work is reviewed and reveals white count is 8.8, hemoglobin is 12.4, electrolytes are within normal limits, BUN is 27 and creatinine is 1.1. Patient is working with physical therapy, Discharge planning is in progress for residential facility placement for subacute rehab Awaiting insurance authorization, otherwise stable to go to [facility] when the insurance authorization is received 10/12/2021 Patient is seen and evaluated in follow-up on the regular medical floor. He is currently sitting up in bed. Awake and alert in no acute distress. Currently maintaining O2 saturations in the high 80s low 90s on 5 L/m per nasal cannula. Vital signs are reviewed and temperature of 97.7, pulse 87, respirations 17 and blood pressure of 96/65 Lab review shows Sodium 142. Potassium 4.3. Creatinine 0.8. Glucose 140. He is continued on Symbicort, IV rebound, albuterol, Decadron, Lovenox, vitamin supplements. 10/13/2021 Patient is seen and evaluated in follow-up in room at bedside; currently on 5 L of oxygen breathing comfortably, his pulse ox is 95%, has mild congestive cough, no chest discomfort, his been afebrile, hemodynamically has been stable, occasional cough, no phlegm production. Most recent labs reviewed and reveal BUN of 36, creatinine 0.8, no other labs. Patient remains on albuterol, Symbicort, Decadron 4 mg daily, all dosed Diflucan 100 mg daily, she is on Spiriva. Patient continues working with physical therapy, he is awaiting insurance authorization for placement to [facility]. Objective - Vital Signs Vital signs: Vital Signs Temp 97.7 F 10/13/21 08:32 Pulse 78 10/13/21 08:32 Resp 17 10/13/21 08:32 BP 109/72 10/13/21 08:32 Pulse Ox 95 10/13/21 08:32 Intake & Output 10/12/21 10/13/21 10/13/21 18:59 06:59 18:59 Intake Total 560 Output Total 225 Balance 560 -225 Intake: Intake, IV Titration 160 Amount Sodium Chloride 0.9% 1, 160 000 ml @ 20 mls/hr IV . Q24H [facility] Rx#:[id number] Oral 400 Output: Urine 225 Other: Voiding Method Diaper Diaper Diaper External Catheter External Catheter # Voids 3 2 # Bowel Movements 0 - Exam GENERAL: The patient is alert and oriented x1, mild respiratory distress. Well developed, well nourished. HEENT: Pupils are round and equally reacting to light. EOMI. No scleral icterus. No conjunctival pallor. Normocephalic, atraumatic. No pharyngeal erythema. No thyromegaly. CARDIOVASCULAR: S1 and S2 present. No murmurs, rubs, or gallops. PULMONARY: Coarse scttered rhonchi bilateral ABDOMEN: Soft, nontender, nondistended, normoactive bowel sounds. No palpable organomegaly. MUSCULOSKELETAL: No joint swelling or deformity. EXTREMITIES: No cyanosis, clubbing, mild peripheral edema NEUROLOGICAL: Gross neurological examination did not reveal any focal deficits. SKIN: No rashes. - Labs CBC & Chem 7: 10/11/21 07:10 10/12/21 06:12 Labs: Abnormal Lab Results - Last 24 Hours (Table) 10/12/21 10/12/21 10/13/21 Range/Units 16:21 20:34 06:48 POC Glucose (mg/dL) 326 H 327 H 123 H (75-99) mg/dL 10/13/21 Range/Units 11:32 POC Glucose (mg/dL) 214 H (75-99) mg/dL Assessment and Plan Assessment: -Acute hypoxic respiratory failure secondary to COVID 19 pneumonia; Patient doesn't qualify for a Remdesivir. on 15 L--13L--8L--6L hi flow -Possible aspiration pneumonia -Acute renal failure possibly secondary to intravascular depletion and dehydration, resolved at this time -Altered Mental status secondary to toxic encephalopathy from infection with a competent of her prolonged hospitalization leading to sundowners, rule out subacute stroke, neurology consult, MRI was done. no acute CVA -possibility of subacute to chronic CVA in the right anterior frontal lobe region -Type 2 diabetes mellitus with hyperglycemia, improving -Hypertension -Hyperlipidemia -transaminitis secondary to Covid 19 infection -Elevated D-Dimer secondary to Covid 19 infection -Elevated inflammatory markers of Covid 19 -Obstructive sleep apnea patient doesn't use any oxygen at home patient quit smoking many years ago DVT prophylaxis: Lovenox Plan MRI of the brain was done on 10/09. Showing chronic appearing periventricular and deep white matter ischemic changes and atrophy. Correlate for left mastoiditis and acute right frontal sinusitis. 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 Patient will be continued on aspirin and statins for secondary stroke prophylaxis. Patient is tolerating oral diet. PT OT and LEAD QA ANALYST is following. Continue decadron, zinc, vitamins, lovenox Continue bronchodilators Titrate oxygen as needed Present insulin regimen Continue all other supportive care Prognosis remains guarded for this patient
[2021-10-13 20:32] LABS: Glucose,Whole Blood 278 mg/dL (75-99)
[2021-10-13] MEDS: SODIUM CHLORIDE 0.9% 1,000 ML IV SCH (22:07)
[2021-10-13] MEDS: ATORVASTATIN 10 MG TAB PO SCH (22:08)
[2021-10-13] MEDS: LATANOPROST 0.005% OPHTH DROPS 2.5 ML BTL BOTH EYES SCH (22:10)
[2021-10-14 07:01] LABS: Glucose,Whole Blood 208 mg/dL (75-99)
--- NOTE | 2021-10-14 07:25 | XR ---
EXAMINATION TYPE: XR chest 1V portable DATE OF EXAM: 10/14/2021 COMPARISON: 10/07/2021 HISTORY: Shortness of breath TECHNIQUE: Single frontal view of the chest is obtained. FINDINGS: Bilateral infiltrate and pleural effusion stable. Heart size unchanged. Underlying COPD no t excluded. Suspect calcified granuloma right lower lobe. Arthropathy of the shoulders. Postsurgical change overlying cervical spine. No pneumothorax. IMPRESSION: Bilateral infiltrate stable with a small pleural effusion.
[2021-10-14] MEDS: amLODIPine 5 MG TAB PO SCH (08:24)
[2021-10-14] MEDS: ZINC SULFATE 220 MG CAP PO SCH (08:24)
[2021-10-14] MEDS: CHOLECALCIFEROL 125 MCG (5000 IU) TABLET PO SCH (08:24)
[2021-10-14] MEDS: ASCORBIC ACID 500 MG TAB PO SCH (08:24)
[2021-10-14] MEDS: ASPIRIN 325 MG TAB PO SCH (08:24)
[2021-10-14] MEDS: carvediloL 12.5 MG TAB PO SCH (08:24)
[2021-10-14] MEDS: TAMSULOSIN 0.4 MG CAP.ER.24H PO SCH (08:25)
[2021-10-14] MEDS: FLUCONAZOLE 100 MG TAB PO SCH (08:25)
[2021-10-14] MEDS: GABAPENTIN 300 MG CAP PO SCH (08:25)
[2021-10-14] MEDS: INSULIN ASPART (NovoLOG) 100 UNIT/ML VIAL SQ SCH ×4 (08:26→13:12)
[2021-10-14] MEDS: ENOXAPARIN 40 MG/0.4 ML SYRINGE SQ SCH (08:27)
[2021-10-14] MEDS: LIDOCAINE 5% PATCH TOPICAL SCH (08:27)
[2021-10-14] MEDS ORDERED: DEXAMETHASONE SOD PHOSPHATE 4 MG/ML 1 ML VIAL IVP SCH (09:00)
[2021-10-14] MEDS: ALBUTEROL HFA INHALER INHALATION SCH ×2 (09:29→12:28)
[2021-10-14] MEDS: SYMBICORT 80-4.5 MCG INHALER INHALATION SCH (09:30)
[2021-10-14] MEDS: TIOTROPIUM 2.5 MCG INHALER INHALATION SCH (09:30)
[2021-10-14 10:38] LABS: Basophils # (A) 0.02 X 10*3/uL (0.00-0.10); Basophils % (A) 0.2 %; Eosinophils # (A) 0.12 X 10*3/uL (0.04-0.35); Eosinophils % (A) 1.1 %; HCT 39.3 % (39.6-50.0); HGB 12.4 g/dL (13.0-17.0); Lymphocytes # (A) 1.95 X 10*3/uL (0.90-5.00); Lymphocytes % (A) 17.4 %; MCH 31.7 pg (27.0-32.0); MCHC 31.6 g/dL (32.0-37.0); MCV 100.5 fL (80.0-97.0); Mean Platelet Volume 10.1 fL (9.5-12.2); Monocytes # (A) 0.85 X 10*3/uL (0.20-1.00); Monocytes % (A) 7.6 %; Neutrophils # (A) 8.12 X 10*3/uL (1.80-7.70); Neutrophils % (A) 72.3 %; Platelet Count 150 X 10*3/uL (140-440); RBC 3.91 X 10*6/uL (4.40-5.60); RDW 15.1 % (11.5-14.5); WBC 11.22 X 10*3/uL (4.50-10.00)
[2021-10-14 11:02] VITALS: RESP 19
[2021-10-14 11:38] LABS: ALT 71 U/L (10-49); AST 16 U/L (14-35); African American GFR (CKD) 89.9 (60.0-200.0); Albumin 3.3 g/dL (3.8-4.9); Albumin/Globulin Ratio 1.69 (1.60-3.17); Alkaline Phosphatase 99 U/L (41-126); BUN/Creat Ratio 40.46 Ratio (12.00-20.00); Blood Urea Nitrogen 38.4 mg/dL (9.0-27.0); Calcium 8.9 mg/dL (8.7-10.3); Carbon Dioxide 23.5 mmol/L (20.0-27.5); Chloride 105 mmol/L (96-109); Globulin 1.9 g/dL (1.6-3.3); Glucose 130 mg/dL (70-110); LDH 250 U/L (120-246); Non-African American GFR(CKD) 77.5 (60.0-200.0); Potassium 4.3 mmol/L (3.5-5.5); Sodium 141 mmol/L (135-145); Total Protein 5.2 g/dL (6.2-8.2)
[2021-10-14 11:45] LABS: C Reactive Protein <0.30 mg/dL (0.00-0.80)
[2021-10-14 11:45] LABS: Glucose,Whole Blood 279 mg/dL (75-99)
[2021-10-14 15:43] VITALS: BP 139/61; PULSE 101; TEMP 98.2
--- NOTE | 2021-10-14 16:04 | P.DS ---
Providers Date of admission: 09/23/21 21:48 Expected date of discharge: 10/14/21 Attending physician: Kevin Moore Consults: 09/23/21 23:56 Consult Physician Routine Consulting Provider: Amanda Tripp Consult Reason/Comments: COVID +, hypoxic Do you want consulting provider notified?: Yes 09/29/21 12:11 Consult Physician Stat Consulting Provider: Marcelino Reynoso Consult Reason/Comments: CT brain results Do you want consulting provider notified?: Yes 10/01/21 15:13 Consult Physician Routine Consulting Provider: Helen Edwards Consult Reason/Comments: abnormal ct brain/mass/stroke Do you want consulting provider notified?: Yes Primary care physician: [facility] Hospital Course: Final Diagnosis -Acute hypoxic respiratory failure secondary to COVID 19 pneumonia -Possible aspiration pneumonia -Acute renal failure possibly secondary to intravascular depletion and dehydration, resolved at this time -Altered Mental status secondary to toxic encephalopathy from infection with a component of her prolonged hospitalization leading to sundowners, rule out subacute stroke. no acute CVA -possibility of subacute to chronic CVA in the right anterior frontal lobe region -Type 2 diabetes mellitus with hyperglycemia, improving -Hypertension -Hyperlipidemia -transaminitis secondary to Covid 19 infection -Elevated D-Dimer secondary to Covid 19 infection -Elevated inflammatory markers of Covid 19 -Obstructive sleep apnea patient doesn't use any oxygen at home patient quit smoking many years ago -DVT prophylaxis Discharge disposition Patient is being discharged in a stable condition with guarded prognosis to [facility] for continued PT/OT therapy. Patient will follow-up with Dr. Castle in the outpatient setting upon discharge. Patient is to continue with current medications. Patient is to follow-up with pulmonary in the outpatient setting in 2-3 weeks. Recommend repeat labs for CBC and CMP in the outpatient setting. Patient will be continued on 5L of oxygen via [place] secondary to covid. Total time taken is greater than 35 minutes. Hospital course 76-year-old male came in with complaints of shortness of breath cough has been going on for about the 2 weeks. Patient is hypoxic present has 6 L of oxygen. Found to have Covid 19 infection" is significant infiltrate on the chest x-ray with elevated liver enzymes elevated to calcitonin 4.89. Patient was also having diarrhea nausea vomiting. is bit dehydrated. Patient was a creatinine is 1.42 diabetes with us and is on metformin at home. 10/11/2021 patient seen and evaluated in follow-up on medical surgical floor; currently on 5 L of oxygen with pulse ox of 91-93% He currently remains on Symbicort, Ventolin, his Decadron dose has been dropped down to 4 mg daily, and she continues on Lovenox 40 mg twice daily. Lab work is reviewed and reveals white count is 8.8, hemoglobin is 12.4, electrolytes are within normal limits, BUN is 27 and creatinine is 1.1. Patient is working with physical therapy, [facility]charge [facility] in progress for [facility] facility placement for subacute rehab Awaiting insurance authorization, otherwise stable to go to [facility] when the insurance authorization is received 10/12/2021 Patient is seen and evaluated in follow-up on the regular medical floor. He is currently sitting up in bed. Awake and alert in no acute distress. Currently maintaining O2 saturations in the high 80s low 90s on 5 L/m per nasal cannula. Vital signs are reviewed and temperature of 97.7, pulse 87, respirations 17 and blood pressure of 96/65 Lab review shows Sodium 142. Potassium 4.3. Creatinine 0.8. Glucose 140. He is continued on Symbicort, IV rebound, albuterol, Decadron, Lovenox, vitamin gould pplements. 10/13/2021 Patient is seen and evaluated in follow-up in room at bedside; currently on 5 L of oxygen breathing comfortably, his pulse ox is 95%, has mild congestive cough, no chest discomfort, his been afebrile, hemodynamically has been stable, occasional cough, no phlegm production. Most recent labs reviewed and reveal BUN of 36, creatinine 0.8, no other labs. Patient remains on albuterol, Symbicort, Decadron 4 mg daily, all dosed Diflucan 100 mg daily, she is on Spiriva. Patient continues working with physical therapy, he is awaiting insurance author ization for placement to [facility]. 10/14/2020 Patient will be discharge in stable condition to [facility] and will follow up with pulmonary in the outpatient setting. Patient will continue on 5 L of 02 via de. recommend to continue current medications and repeat labs in 2-3 days. CBC and BMP. Currently no reports of chest pain, worsening shortness of breath, or palpitations. Patient is afebrile. No reports of nausea or vomiting and patient is tolerating diet. Patient will be going to [facility] today. On exam vital signs are stable. Cardio S1, S2 are muffled. Respiratory system shows diminished breath sounds at the bases with no wheezing or rhonchi noted. Abdomen is soft and nontender. Nervous system shows diffuse weakness. Please refer to medication reconciliation sheet for a list of medications. This discharge summary was dictated as a scribe for Dr. Kay Moore MD Patient Condition at Discharge: Stable Plan - Discharge Summary Discharge Rx Participant: No New Discharge Prescriptions: New carvediloL [Coreg*] 25 mg PO BID-W/MEALS tab Ipratropium-Albuterol Nebulize [Duoneb 0.5 mg-3 mg/3 ml Soln] 3 ml INHALATION QID #90 ml amLODIPine [Norvasc] 5 mg PO DAILY tab INSULIN ASPART (NovoLOG) [NovoLOG (formulary)] 2 unit SQ AC-TID ml INSULIN ASPART (NovoLOG) [NovoLOG (formulary)] 0 unit SQ ACHS ml Acetaminophen Tab [Tylenol] 1,000 mg PO Q6HR PRN tab PRN Reason: Fever>101 Ascorbic Acid [Vitamin C] 1,000 mg PO DAILY tab Cholecalciferol [Vitamin D3 (125 Mcg = 5000 Iu)] 125 mcg PO DAILY tablet Aspirin 325 mg PO DAILY tab Dexamethasone [Decadron] 2 mg PO DAILY 7 Days #7 tablet Fluconazole [Diflucan] 100 mg PO DAILY 7 Days #7 tab Atorvastatin [Lipitor] 10 mg PO HS tab Enoxaparin [Lovenox] 40 mg SQ BID each Zinc Sulfate [Orazinc] 220 mg PO DAILY 14 Days #14 cap Continue Tamsulosin [Flomax] 0.8 mg PO DAILY rOPINIRole HCL [Requip] 2 mg PO HS Gabapentin [Neurontin] 300 mg PO TID #6 cap Tiotropium 2.5 Mcg/Puff [Spiriva Respimat 2.5 Mcg] 2 puff INHALATION RT-DAILY Lidocaine 5% Patch [Lidoderm 5% Patch] 1 patch TOPICAL DAILY Latanoprost [Xalatan 0.005%] 1 drop BOTH EYES HS Fluticasone Propion/Salmeterol [Fluticasone-Salmeterol 250-50] 1 puff INHALATION RT-BID Cyclobenzaprine [Flexeril] 10 mg PO TID PRN PRN Reason: MUSCLE SPASMS Albuterol Inhaler [Ventolin Hfa Inhaler] 1 puff INHALATION RT-Q4H PRN PRN Reason: Shortness Of Breath traMADol HCl [Ultram] 100 mg PO Q6H PRN #4 tab PRN Reason: Pain Discontinued Simvastatin [Zocor] 20 mg PO HS metFORMIN HCL [Glucophage] 850 mg PO DAILY Carvedilol [Coreg] 12.5 mg PO BID Discharge Medication List Albuterol Inhaler [Ventolin Hfa Inhaler] 1 puff INHALATION RT-Q4H PRN 09/23/21 [History] Cyclobenzaprine [Flexeril] 10 mg PO TID PRN 09/23/21 [History] Fluticasone Propion/Salmeterol [Fluticasone-Salmeterol 250-50] 1 puff INHALATION RT-BID 09/23/21 [History] Latanoprost [Xalatan 0.005%] 1 drop BOTH EYES HS 09/23/21 [History] Lidocaine 5% Patch [Lidoderm 5% Patch] 1 patch TOPICAL DAILY 09/23/21 [History] Tamsulosin [Flomax] 0.8 mg PO DAILY 09/23/21 [History] Tiotropium 2.5 Mcg/Puff [Spiriva Respimat 2.5 Mcg] 2 puff INHALATION RT-DAILY 09/23/21 [History] rOPINIRole HCL [Requip] 2 mg PO HS 09/23/21 [History] Acetaminophen Tab [Tylenol] 1,000 mg PO Q6HR PRN tab 10/14/21 [Rx] Ascorbic Acid [Vitamin C] 1,000 mg PO DAILY tab 10/14/21 [Rx] Aspirin 325 mg PO DAILY tab 10/14/21 [Rx] Atorvastatin [Lipitor] 10 mg PO HS tab 10/14/21 [Rx] Cholecalciferol [Vitamin D3 (125 Mcg = 5000 Iu)] 125 mcg PO DAILY tablet 10/14/21 [Rx] Dexamethasone [Decadron] 2 mg PO DAILY 7 Days #7 tablet 10/14/21 [Rx] Enoxaparin [Lovenox] 40 mg SQ BID each 10/14/21 [Rx] Fluconazole [Diflucan] 100 mg PO DAILY 7 Days #7 tab 01/10/22 [Rx] Gabapentin [Neurontin] 300 mg PO TID #6 cap 10/14/21 [Rx] INSULIN ASPART (NovoLOG) [NovoLOG (formulary)] 0 unit SQ ACHS ml 10/14/21 [Rx] INSULIN ASPART (NovoLOG) [NovoLOG (formulary)] 2 unit SQ AC-TID ml 10/14/21 [ Rx] Ipratropium-Albuterol Nebulize [Duoneb 0.5 mg-3 mg/3 ml Soln] 3 ml INHALATION QID #90 ml 10/14/21 [Rx] Zinc Sulfate [Orazinc] 220 mg PO DAILY 14 Days #14 cap 10/14/21 [Rx] amLODIPine [Norvasc] 5 mg PO DAILY tab 10/14/21 [Rx] carvediloL [Coreg*] 25 mg PO BID-W/MEALS tab 10/14/21 [Rx] traMADol HCl [Ultram] 100 mg PO Q6H PRN #4 tab 10/14/21 [Rx] Follow up Appointment(s)/Referral(s): [facility], [NON-STAFF] - As Needed [facility],Clinic [Primary Care Provider] - 1-2 days Ambulatory/Diagnostic Orders: Complete Blood Count w/diff [LAB.AMB] Time Frame: 2 Days, Location: None Selected Activity/Diet/Wound Care/Special Instructions: Patient is going to [facility] activity as tolerated continue current diet continue with duoneb treatments qid and as needed along with inhalers continue with incentive spirometer at least 10 times every hour while awake continue current medications continue to monitor accuchecks achs continue with sliding scale and pre-meal insulin Sliding scale 0-150 0 units 151-200 2 units 201-250 4 units 251-300 6 units 301-350 8 units 351-400 10 units and notify provider repeat labs of CMC and BMP in 2-3 days continue with steroids until finished 7 days continue with 5L of 0xygen secondary to covid Discharge Disposition: TRANSFER TO SNF/ECF
--- NOTE | 2021-10-14 17:36 | P.PN ---
Subjective Progress Note Date: 10/14/21 Principal diagnosis: Dyspnea This is a 76-year-old male patient who follows with the [facility] system as his primary care provider. He has a history of chronic obstructive pulmonary disease, hypertension, hyperlipidemia, diabetes mellitus, obstructive sleep apnea maintained on CPAP at a pressure of 11 cm of water with C-Flex of 3. He has a 2 week history of increasing shortness of breath, cough and congestion. He presented here to the emergency room yesterday for the same. X-ray reveals bilateral patchy infiltrates left greater than right consistent with COVID-19 pneumonia. White count 8.2. Hemoglobin 12.0. D-dimer 2.07. Sodium 140. Potassium 4.0. Creatinine 1.4. AST 85. ALT 50. LDH 1625. C-reactive protein 38.4. Pro-calcitonin 4.89. [place] virus by PCR positive. He's been initiated on Decadron, vitamin supplements. If he did receive Lovenox 100 mg subcu once yesterday. Normal saline at 75 ML's per hour. He is seen today in consultation in the emergency department. He is currently sitting up awake and alert. Somewhat slow to respond. Somewhat of a poor historian. His daughter is present in the room in supplies most of the information. Is currently maintaining O2 saturations in the low 90s on 6 L high flow nasal cannula. He's been afebrile. Slightly tachycardic. Hypertensive. On 09/25/2021 patient seen in follow-up on medical surgical floor, he is a poor historian, he is currently sitting up in the recliner, he is currently on 8 L of oxygen and his oxygen demand has increased compared to yesterday when he was on 6 L per high flow nasal cannula. Pulse ox is currently 88-89%, he is afebrile, remains hypertensive with blood pressure in the 180s over 107, with a mean of 133 bpm. D-dimer came back elevated at 2.07, lower extremity Dopplers showed no evidence of DVTs in both. His been afebrile, does have a congestive cough, overall his mentation is confused and sleepy. He is currently on the Decadron 6 mg daily, he is on inhaled bronchodilators. Cough is congested, patient does have underlying history of COPD, we will add empiric antibiotics today. We'll obtain follow up pro-calcitonin level. Initial pro-calcitonin level on admission was elevated to 4.89. On 09/26/2021 patient seen in follow-up medical surgical floor. He is confused, but his responsive, he denies any acute distress. He was taken off the BiPAP support this morning, he is currently on 15 L high flow oxygen, and his pulse ox is 89-91%, he removes his oxygen at times, desaturates, becomes more confused. Low-grade fevers in the last 24 hours with a temp of 99.5F. Lung sounds reveal diffuse coarse inspiratory crackles throughout the lung baxter. No complaints of chest pain, occasional cough, no phlegm production. His chest x-ray today shows stable bibasilar and left peripheral COVID infiltrates, and 8 mm nodular density at the right lower lung with a recommendation of follow-up CT scanning of the chest to exclude underlying pulmonary nodule. Patient continues on Rocephin and azithromycin for empiric antibiotic coverage, he is on Decadron 6 mg daily, he is on prophylactic dose of Lovenox. Today's labs have been reviewed, his white blood cell count 8.12, hemoglobin is 12.4, serum sodium is 147, potassium is 4.0, chloride is 111, B1 is 32, creatinine is 1.2, ferritin level is improving and is down to 1227, LDH is down to 477, improved and CRP is also improving and is down to 7.8, follow up pro-calcitonin was improved and was down to 1.53. On 09/27/2021 patient seen in follow-up on medical surgical floor. He is curr ently sleeping, he is on BiPAP support, which he looks very comfortable on, breathing comfortably, BiPAP settings of 12 and 6 and FiO2 of 70%, his pulse ox is Usually better on BiPAP at 95%. On 15 L per high flow nasal cannula his pulse ox is 186%, afebrile, hemodynamically stable, still confused, not agitated. His last chest x-ray from 09/25/2001 showed stable bibasilar and left peripheral COVID infiltrates. Patient was also suspected to have bacteria superinfection, he was placed on azithromycin and Rocephin, his pro-calcitonin was improving, and is down to 0.73 on today's labs from the original value of 4.89 on 09/23/2021. White count is 8.4, hemoglobin is 0.8, his d-dimer is 3.19, sodium is 146, patient remains on D5W at 50 ML per hour, potassium 3.6, B1 is 29, creatinine is 1.His LDH is slightly improved and is down to 1164, CRP is 12.1, improved since admission. Appears to be in no acute distress. Appetite is poor, he is only consuming about 25% of his meals. On 09/29/2021 patient seen in follow-up on medical surgical floor. Patient remains confused, but more awake on today's exam, he has been alternating between BiPAP with pressures of 12.6 and FiO2 of 70% and 15 L high flow oxygen. Pulse ox is 91-92%, his been afebrile. He is only oriented to self, very disoriented to place and time, confused. Does not appear to be in respiratory distress. He does have a cough, which is congested and his mouth has dried up phlegm, oral mucous membranes are extremely dry. Patient has had very poor oral intake related to being BiPAP dependent. Currently tolerating high flow nasal cannula much better, although still remains very confused. But at this point probably able to tolerate some oral feedings. Lung sounds reveal diffuse rhonchi. Needs pulmonary toileting and aspiration precautions. Patient's family was in yesterday to see him for [place], and they were concerned about his altered mentation. We will obtain brain CT without today. Remains on antibiotics with azithromycin and Rocephin. He remains on D5W at a rate of 50 ML per hour, Decadron 6 mg daily and Lovenox 40 mg twice daily. His last d- dimer from yesterday was up trending was up to 6.07 at which point his Lovenox dose has been increased to twice daily. His serum sodium has normalized and was down to 144 on yesterday's labs. BUN is 28 creatinine is 1. Inflammatory markers were improving since admission and LDH was down to 413, and CRP was 8.6. Procalcitonin was down to 0.73 On 09/30/2021 patient seen in follow-up on medical surgical floor. he remains confused, but awake and alert, but his speech does not make sense. No unilateral weakness noted. Still significantly altered mentation. This morning he is on Airvo at 12/6 and FiO2 of 50%, his pulse ox is 91-95%. Today he has a strong effective cough, has a bit of a chest congestion, congested cough. Afebrile, hemodynamically he is stable. He asked to have the BiPAP mask removed, and he was placed on 15 L per high flow nasal cannula, breathing fairly comfortably. Yesterday's chest x-ray showed worsening left lower lobe consolidation with minimal infiltration through the right midlung. Patient is currently on a combination of azithromycin and Rocephin, his last pro-calcitonin was down to 0.73. Yesterday CT of the brain was obtained in view of altered mental status, and he was found to have a focal area of low attenuation in the right frontal lobe, stat neurology evaluation was requested, an MRI of the brain with and without to rule out acute CVA was recommended. However a subacute right frontal lobe CVA is suspected. Venous Doppler yesterday was negative for bilateral DVT, today's d-dimer is 3.92, serum sodium has normalized and is down to 142, potassium is 4.2, BUN is 29.8, creatinine is 1, but sugars in the 170s range, AST 39, ALT is 54, LDH is 419, CRP is 4.6. Vital signs show no evidence of fever, patient is in sinus mechanism with a controlled rate, blood pressure stable 130/86. Currently patient remains on D5W at a rate of 50 ML per hour, oral intake has been limited still. However he is able to take in some Ensure with supervision and assistance. He continues on multivitamins, he continues on Decadron. On 10/01/2021 patient seen in follow-up on medical surgical floor. He is resting comfortably in bed, he continues to be confused, although somewhat improved, he was able to tell nursing staff he was in the hospital, and that the month was September. He is not using BiPAP support, he is currently on 15 L of oxygen per high flow nasal cannula his pulse ox is 90%, breathing is nonlabored, lung sounds are positive for diminished breath sounds with some scattered crackles. No cough, no chest pain, while signs have been stable patient has been afebrile. He continues on Decadron 6 mg daily, Lovenox 40 mg twice daily, he is on Zosyn for empiric antibiotic coverage, today's labs have been reviewed, white blood cell count is 13.6, hemoglobin is 13, d-dimer was improving on yesterday's labs and was down to 3.92, today's level still pending, sodium is 141, potassium is 6.0, and this has hemolyzed, BUN is 28 and creatinine is 1, pro-calcitonin level is pending. On the 10/07/2021 patient seen in follow-up on medical surgical floor, he remains on high flow oxygen, currently on 15 L and his pulse ox is 92%, he is laying in bed, not clear if his been up with physical therapy in the chair, his speech is better, he is awake and alert, he is answering questions appropr iately, he is talking about his , he knows he is in [place], he knew he was in the hospital. His been afebrile, vital signs have been stable, breathing is nonlabored, lung sounds are positive for a few scattered rhonchi, patient remains on Zosyn for possibility of aspiration. Today's labs have been reviewed his white blood cell count is fairly stable over last several days at 12.28, hemoglobin is 12, his platelet count is 240, electrolytes were unremarkable, BUN was 32, and creatinine was 1. His last set of inflammatory markers from yesterday showed LDH of 268, and CRP of 0.30, significantly improved. Patient continues on Decadron 6 mg daily, he continues on Diflucan, and Zosyn as mentioned above he is on Symbicort and Spiriva in addition to albuterol. His chest x-ray today showing persistent low lung volumes with left greater than right bilateral lower lung opacities consistent with COVID-19 infection. No significant change from 2 days earlier. on 10/08/2021 patient seen in follow-up on medical surgical floor. He is currently awake and alert, does not appear to be in any acute distress, breathing currently, he still remains a high flow oxygen although we were able t o cut back to 13 L and his pulse ox is around 90-93%. According to the nursing staff patient was up to the commode with assistance, he is generally weak, during my evaluation patient was having a hard time even sitting up in bed, cannot support his own posture. He needs continue skilled physical therapy. Patient has poor balance, decreased strength, decreased endurance and poor cognition and safety awareness according to the PT progress notes. denies any worsening dyspnea, no chest pain, his been afebrile, vital signs have been stable, he is on a modified diet, however she requires assistance and supervision with meals. On 10/09/2021 patient seen in follow-up on medical surgical floor. He is currently on the commode, trying to have a bowel movement, he requires extensive assistance to get up on a commode, but tolerated activity fairly well, currently on 13 L of oxygen with a pulse ox of 98%, breathing is very stable, no cough, no chest pain, we'll drop the FiO2 down to 8 L and monitor his pulse oximetry, vital signs have been stable, his been afebrile, his inflammatory markers were improving on the labs from 10/06/2021. Neurologically he seems to be improving, he was able to finally travel downstairs to the MRI department to complete his brain MRI, which showed chronic appearing periventricular and deep white matter ischemic type changes, atrophy, left mastoiditis and acute right frontal sinusitis, old small infarct in the right frontal parietal region corresponding to the hypodense area on the CT exam of the brain. Patient currently remains on Decadron 6 daily, he is on inhaled bronchodilators with Symbicort and Spiriva is on Lovenox 40 mg twice daily. On 10/10/2021 patient seen in follow-up on medical surgical floor. Patient is breathing comfortably, he is currently on 8 L of oxygen, and his pulse ox is 94%, his FiO2 has been dropped down to 6 L, we'll continue to wean his FiO2, patient denies any worsening dyspnea or cough, vital signs have been stable, his been afebrile, he does have a few scattered rhonchi, overall less congested, he is trying to feed himself, appetite is fair, no complaints of chest discomfort, no phlegm production, no hemoptysis. He is on Decadron at 4 mg daily, she remains on Lovenox 40 mg BID, remains on multivitamins, and Symbicort and Spiriva, no acute events overnight. Patient has been working with physical therapy, however still requires extensive assistance related to his decreased strength and endurance. On 10/11/2021 patient seen in follow-up on medical surgical floor. He is currently down to 5 L of oxygen with pulse ox of 91-93%, breathing comfortably, since he is stable, less congested, yet due to no fever or chills, blood pressure is been stable, no acute events overnight, no complaints of dyspnea, c ough or chest discomfort, patient's oxygenation has been steadily improving. He currently remains on Symbicort, Ventolin, his Decadron dose has been dropped down to 4 mg daily, and she continues on Lovenox 40 mg twice daily. States that symptoms reviewed, his white count is 8.8, hemoglobin is 12.4, electrolytes are within normal limits, BUN is 27 and creatinine is 1.1. As been tolerating oral intake. No abdominal pain, no nausea or vomiting, patient has been working with physical therapy, he was able to take a few steps at the bedside however his gait is quite wobbly and weak, patient fatigues very quickly. On 10/13/2021 patient seen in follow-up on medical surgical floor, he is current ly on 5 L of oxygen breathing comfortably, his pulse ox is 95%, has mild congestive cough, no chest discomfort, his been afebrile, hemodynamically has been stable, occasional cough, no phlegm production. No new chest x-ray, his labs from yesterday showed normal electrolytes, BUN of 36, creatinine 0.8, no other labs. he currently continues on albuterol, Symbicort, Decadron 4 mg daily, all dosed Diflucan 100 mg daily, she is on Spiriva. His been working with physical therapy, he is awaiting insurance authorization for placement to [facility]. On 10/14/2021 patient seen in follow-up on medical surgical floor. He is sitting up in the recliner, breathing comfortable, he is on 5 L of oxygen his pulse ox is 93%, denies any worsening dyspnea or hypoxia, his vital signs have been stable overnight, no fever or chills, blood pressure has been stable, follow-up chest x-ray today showing bilateral infiltrates with a small pleural effusion, and the infiltrates were stable in appearance, no pneumothorax. Currently patient remains on Decadron 4 mg daily, he is on oral dose of Diflucan 100 mg daily, he is on inhaled bronchodilators including Symbicort, albuterol and Spiriva. History is improving, his been working with physical therapy. He is tolerating oral intake, no nausea vomiting or diarrhea, no abdominal pain. He is moving all 4 extremities, his gait is weak, he fatigues easily, however he seems to be improving. His speech continues to be a bit slurred at times, but overall he continues to be stable over the last several days. He is anticipated for discharge today to [facility] Objective - Vital Signs Vital signs: Vital Signs Temp 98.2 F 10/14/21 14:00 Pulse 101 H 10/14/21 14:00 Resp 19 10/14/21 14:00 BP 139/61 10/14/21 14:00 Pulse Ox 95 10/14/21 14:00 Intake & Output 10/13/21 10/14/21 10/14/21 18:59 06:59 18:59 Intake Total 450 Output Total 300 Balance 450 -300 Intake: Oral 450 Output: Urine 300 Other: Voiding Method Diaper Diaper Diaper External Catheter External Catheter External Catheter # Voids 3 - Exam GENERAL EXAM: More awake, 76-year-old white male, currently on 5 L of oxygen with pulse ox of 95%, patient is currently up to the commode HEAD: Normocephalic/atraumatic. EYES: Normal reaction of pupils, equal size. Conjunctiva pink, sclera white. NOSE: Clear with pink turbinates. MOUTH: dry oral mucous membranes, with dried oral secretions THROAT: No erythema or exudates. NECK: No masses, no JVD, no thyroid enlargement, no adenopathy. CHEST: No chest wall deformity. Symmetrical expansion. LUNGS: Equal air entry with a few scattered crackles CVS: Regular rate and rhythm, normal S1 and S2, no gallops, no murmurs, no rubs ABDOMEN: Soft, nontender. No hepatosplenomegaly, normal bowel sounds, no guarding or rigidity. EXTREMITIES: No clubbing, no edema, no cyanosis, 2+ pulses and upper and lower extremities. MUSCULOSKELETAL: Muscle strength and tone normal. SPINE: No scoliosis or deformity SKIN: No rashes CENTRAL NERVOUS SYSTEM: Confused, but appears to be more alert, currently on 13 l/min. - Labs CBC & Chem 7: 10/14/21 06:07 10/14/21 06:07 Labs: Abnormal Lab Results - Last 24 Hours (Table) 10/13/21 10/14/21 10/14/21 Range/Units 20:27 06:07 06:07 WBC 11.22 H (4.50-10.00) X 10*3/uL RBC 3.91 L (4.40-5.60) X 10*6/uL Hgb 12.4 L (13.0-17.0) g/dL Hct 39.3 L (39.6-50.0) % MCV 100.5 H (80.0-97.0) fL MCHC 31.6 L (32.0-37.0) g/dL RDW 15.1 H (11.5-14.5) % Immature Gran # 0.16 H (0.00-0.04) X 10*3/uL Neutrophils # 8.12 H (1.80-7.70) X 10*3/uL D-Dimer 0.88 H (<0.60) mg/L FEU BUN (9.0-27.0) mg/dL BUN/Creatinine Ratio (12.00-20.00) Ratio Glucose (70-110) mg/dL POC Glucose (mg/dL) 278 H (75-99) mg/dL ALT (10-49) U/L Lactate Dehydrogenase (120-246) U/L Total Protein (6.2-8.2) g/dL Albumin (3.8-4.9) g/dL 10/14/21 10/14/21 10/14/21 Range/Units 06:07 07:00 11:44 WBC (4.50-10.00) X 10*3/uL RBC (4.40-5.60) X 10*6/uL Hgb (13.0-17.0) g/dL Hct (39.6-50.0) % MCV (80.0-97.0) fL MCHC (32.0-37.0) g/dL RDW (11.5-14.5) % Immature Gran # (0.00-0.04) X 10*3/uL Neutrophils # (1.80-7.70) X 10*3/uL D-Dimer (<0.60) mg/L FEU BUN 38.4 H (9.0-27.0) mg/dL BUN/Creatinine Ratio 40.46 H (12.00-20.00) Ratio Glucose 130 H (70-110) mg/dL POC Glucose (mg/dL) 208 H 279 H (75-99) mg/dL ALT 71 H (10-49) U/L Lactate Dehydrogenase 250 H (120-246) U/L Total Protein 5.2 L (6.2-8.2) g/dL Albumin 3.3 L (3.8-4.9) g/dL Assessment and Plan Plan: Assessment: #1. Acute hypoxic respiratory failure related to acute COVID-19 pneumonia, possibility of underlying pneumonia is also considered based on elevated pro-calcitonin level of 4.89. Patient presented to the hospital on 09/23/2021 with 2 weeks of symptoms, he was outside the window for Remdesivir. He is not vaccinated against COVID-19. Today on 10/08/2021 patient is on high flow oxygen at 13 L #2. Elevated pro-calcitonin level, suggesting possibility of underlying bacterial infection, patient was given Rocephin and azithromycin, and pro- calcitonin improved is down to 0.17, antibiotics have been discontinued, crit the patient just remains on Diflucan 100 mg daily. #3. Acute kidney injury related to dehydration and ATN, improved and resolved with IV hydration #4. Diabetes mellitus type 2 #5. Underlying history of sleep apnea on CPAP #6. Hypertension #7. Hyperlipidemia #8. Elevated d-dimer, with no evidence of DVT on lower extremity Dopplers #9. Hypernatremia, related to poor oral intake, improved with IV hydration with D5W #10. Pulmonary nodule, measuring 8 mm projecting at the right lower lobe, will need to be followed up on the CT of the chest with contrast #11. 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, CT of the brain without contrast on 09/28/2021 showed focal area of low attenuation in the right frontal lobe with abscess of the rush-white matter concerning for rush-white matter junction mass/edema or CVA, neurology is following #12. Altered mental status, related to the above, and subacute right frontal lobe CVA, improved Plan: Oxygenation has been stable, and improving FiO2 is at 5 L, and patient has maintained stable O2 saturations on 5 L No worsening dyspnea, no worsening hypoxia No acute events overnight Patient's insurance authorization was finally obtained, and discharge planning is in progress for ECF placement today. Patient will complete 7 day course of Decadron, he will complete 7 day course of oral Diflucan, he will continue on Lovenox 40 mg twice daily at the [facility], he will continue multivitamins on nebulized bronchodilators, aspirin, Coreg and Lipitor. I performed a history & physical examination of the patient and discussed their management with my nurse practitioner, Terri Key. I reviewed the nurse practitioner's note and agree with the documented findings and plan of care. Lung sounds are positive for dim breath sounds throughout the lung baxter. The findings and the impression was discussed with the patient. I attest to the documentation by the nurse practitioner. Time with Patient: Less than 30
== END 2021-10-14 16:30 | DRG 177 ==
LOC: EC 15:32 → 4SSUR 21:48
PROVIDERS: ADMIT Hospitalist; ATTEND Hospitalist
PROC: 5A09357 Assistance with Respiratory Ventilation, Less than 24 Consecutive Hours, Continuous Positive Airway Pressure (ICD-10-PCS; principal; 2021-09-25)
PROC: 5A0945A Assistance with Respiratory Ventilation, 24-96 Consecutive Hours, High Flow/Velocity Cannula (ICD-10-PCS; principal; 2021-09-25)
DX: U07.1 COVID-19 (principal); J12.82 Pneumonia due to coronavirus disease 2019; N17.0 Acute kidney failure with tubular necrosis; J96.01 Acute respiratory failure with hypoxia; G92.9 Unspecified toxic encephalopathy; I63.89 Other cerebral infarction; J44.0 Chronic obstructive pulmonary disease with (acute) lower respiratory infection; R47.01 Aphasia; B37.0 Candidal stomatitis; E87.0 Hyperosmolality and hypernatremia; G93.1 Anoxic brain damage, not elsewhere classified; F05 Delirium due to known physiological condition; N40.0 Benign prostatic hyperplasia without lower urinary tract symptoms; R29.6 Repeated falls; G47.33 Obstructive sleep apnea (adult) (pediatric); G25.81 Restless legs syndrome; E11.319 Type 2 diabetes mellitus with unspecified diabetic retinopathy without macular edema; E11.65 Type 2 diabetes mellitus with hyperglycemia; I10 Essential (primary) hypertension; H70.92 Unspecified mastoiditis, left ear; E11.40 Type 2 diabetes mellitus with diabetic neuropathy, unspecified; Z79.84 Long term (current) use of oral hypoglycemic drugs; R79.1 Abnormal coagulation profile; E66.9 Obesity, unspecified; Z68.34 Body mass index [BMI] 34.0-34.9, adult; E78.1 Pure hyperglyceridemia; R79.89 Other specified abnormal findings of blood chemistry; K21.9 Gastro-esophageal reflux disease without esophagitis; K57.90 Diverticulosis of intestine, part unspecified, without perforation or abscess without bleeding; H93.19 Tinnitus, unspecified ear; E78.5 Hyperlipidemia, unspecified; E86.0 Dehydration; T38.0X5A Adverse effect of glucocorticoids and synthetic analogues, initial encounter; H91.90 Unspecified hearing loss, unspecified ear; M43.22 Fusion of spine, cervical region; R47.81 Slurred speech; T88.9XXS Complication of surgical and medical care, unspecified, sequela; Z87.891 Personal history of nicotine dependence; Z79.899 Other long term (current) drug therapy; Z85.828 Personal history of other malignant neoplasm of skin; Z86.73 Personal history of transient ischemic attack (TIA), and cerebral infarction without residual deficits; Z87.01 Personal history of pneumonia (recurrent); Z97.4 Presence of external hearing-aid; Z98.1 Arthrodesis status; Z98.890 Other specified postprocedural states; Z88.8 Allergy status to other drugs, medicaments and biological substances; Z91.81 History of falling
CPT/HCPCS: 36415; 70450; 70553; 71045; 80048; 80053; 80061; 82607; 82728; 82746; 82947; 83036; 83605; 83615; 83735; 84145; 84443; 84484; 85025; 85027; 85379; 85610; 85730; 86140; 87635; 93005; 93308; 93880; 93970; 94640; 94660; 94760; 99285

== ENCOUNTER → 2023-05-13 | Outpatient (CLI) | payer OTHER ==
--- NOTE | 2023-05-13 13:15 | MR ---
EXAMINATION TYPE: MR lumbar spine wo con DATE OF EXAM: 05/13/2023 12:34 PM COMPARISON: NONE HISTORY: Lumbar spondylosis with radiculopathy Multiplanar, MultiSpin echo imaging of the lumbar spine was performed. L1-L2: Normal disc appearance without desiccation. No herniation, protrusion or disc bulging. No ca nal stenosis is present. Foramina are patent bilaterally. L2-L3: Moderate decreased signal and loss compatible with degenerative disc disease. Broad-based post erior subligamentous disc bulge effaces the ventral thecal sac. There is hypertrophy of the ligamentu m flavum and facet joint arthropathy contributing to mild central stenosis. No significant foraminal encroachment. L3-L4: Moderate decreased signal and loss compatible with degenerative disc disease. Broad-based post erior subligamentous disc bulge effaces the ventral thecal sac. There is hypertrophy of the ligamentu m flavum and facet joint arthropathy contributing to mild central stenosis. No significant foraminal encroachment. L4-L5: Severe disc desiccation noted. Moderate broad-based subligamentous disc bulge effaces the vent ral thecal sac. There is hypertrophy of ligamentum flavum and severe facet joint arthropathy resultin g in moderate to severe central stenosis. Moderate left-sided neural foraminal encroachment. L5-S1: Severe degenerative disc disease with vacuum disc. There is large posterior hypertrophic spur which effaces the ventral thecal sac and results in bilateral lateral recess stenosis. There is sever e bilateral foraminal encroachment. No obvious disc herniation or central stenosis at this time. Lumbar segments are intact. No paraspinal masses are identified. Conus medullaris has a normal appe arance. IMPRESSION: 1. Severe multilevel degenerative disc disease with multilevel central stenosis as outlined above.
== END | disposition home or self-care (01) ==
LOC: RADMRIMAIN 11:02
PROVIDERS: ATTEND Orthopaedic Surgery
DX: M47.26 Other spondylosis with radiculopathy, lumbar region (principal); M51.16 Intervertebral disc disorders with radiculopathy, lumbar region; M99.73 Connective tissue and disc stenosis of intervertebral foramina of lumbar region
CPT/HCPCS: 72148

== ENCOUNTER → 2023-05-26 | Outpatient (CLI) | payer OTHER ==
--- NOTE | 2023-05-26 13:25 | CT ---
EXAMINATION TYPE: CT lumbar spine wo con CT DLP: 1532.2 mGycm, Automated exposure control for dose reduction was used. DATE OF EXAM: 05/26/2023 1:14 PM COMPARISON: MRI lumbar spine 05/13/2023, lumbar spine radiograph 05/04/2023, CT abdomen pelvis 11/04/2022 . CLINICAL INDICATION:Male, 77 years old with history of M47.817 SPONDYLS W/O MYELOPATHY OR; PHH, low b ack pain TECHNIQUE: Multiple axial images were obtained from the midportion of T11 through the sacroiliac rene nts. Soft tissue and bone windows in coronal and sagittal planes were obtained and reviewed. FINDINGS: Alignment: There are 5 lumbar type vertebral bodies. No spondylolisthesis. Minimal levocurvature of t he lumbar spine with apex at L3-L4. Bone: No evidence of fracture is identified. Degenerative changes of both SI joints. Discs: T12-L1: No spinal canal or neural foraminal stenosis is identified. L1-L2: No spinal canal or neural foraminal stenosis is identified. L2-L3: Broad-based disc bulge with ligament of flavum buckling and bilateral facet arthropathy contri bute to mild central canal stenosis. The neural foramen are patent bilaterally. L3-L4: Broad-based disc bulge with ligamentum flavum buckling and bilateral facet arthropathy contrib mentasta to mild to moderate central canal stenosis. The neural foramen are patent bilaterally. L4-L5: Broad-based disc bulge with bilateral facet arthropathy contribute to moderate central canal stenosis. Moderatebilateral neural foraminal stenosis. L5-S1: Large posterior osteophyte with bilateral facet arthropathy contributing to mild effacement of the anterior thecal sac. Moderate to severe bilateral neural foraminal stenosis. Other: Infrarenal abdominal aortic aneurysm measuring up to 3.1 cm which is stable from prior examina tion. Atherosclerotic calcification of the aorta. IMPRESSION: 1. No evidence of fracture of the lumbar spine. 2. Moderate to severe multilevel degenerative disc disease and facet arthropathy as described above. 3. Stable infrarenal abdominal aortic aneurysm measuring up to 3.1 cm.
== END | disposition home or self-care (01) ==
LOC: RADCTMAIN 12:36
PROVIDERS: ATTEND Orthopaedic Surgery
DX: M51.36 Other intervertebral disc degeneration, lumbar region (principal); M47.816 Spondylosis without myelopathy or radiculopathy, lumbar region; M47.817 Spondylosis without myelopathy or radiculopathy, lumbosacral region; M48.061 Spinal stenosis, lumbar region without neurogenic claudication; M99.73 Connective tissue and disc stenosis of intervertebral foramina of lumbar region; I71.43 Infrarenal abdominal aortic aneurysm, without rupture
CPT/HCPCS: 72131

== ENCOUNTER → 2023-08-14 | Outpatient (CLI) | payer OTHER ==
--- NOTE | 2023-08-14 14:53 | CT ---
EXAMINATION TYPE: CT thor lumbar spine wo con DATE OF EXAM: 08/14/2023 COMPARISON: CT lumbar spine dated 05/26/2023 HISTORY: back pain and siatic pain CT DLP: 2229.8 mGycm Automated exposure control for dose reduction was used. FINDINGS: The thoracic vertebral segments are normal in height and alignment and there is no fracture subluxati on. There is marked anterior spondylosis in the midthoracic spine. There is a small focal area of laura cification of the posterior dura at T5-6 possibly indicating a tiny meningioma. There is no thoracic disc herniation or thoracic spinal stenosis. There is been interval development of a moderate to marked compression fracture of L1 with slight ret ropulsion. Remaining lumbar segments are normal in height and alignment. There is mild degenerative disc disease with spondylosis at the L1-2, L2-3 and L3-4 levels. There is marked degenerative disease at the L5-S1 level where there is marked disc space narrowing, spondylosi s and vacuum phenomena. There is mild to moderate degenerative disease at the L4-5 level where there is vacuum phenomena and spondylosis.. There is moderate facet arthropathy at the L3-4, L4-5 and L5-S1 levels. Secondary to facet arthropathy, disc bulge and thickening ligamentum flavum, there is moderate to sev ere spinal stenosis at the L3-4 level and severe spinal stenosis at the L4-5 level. There is severe b tushar neural foraminal stenosis at the L5-S1 level bilaterally secondary to vertebral segment spondylos is and facet degeneration. The visualized sacrum and SI joints appear normal. There is a stable 3.1 cm saccular aneurysm of the infrarenal abdominal aorta at the L4-5 level. IMPRESSION: 1. Acute moderate to marked compression fracture with slight retropulsion of the L1 vertebral segment . 2. Multilevel degenerative disc disease in the lumbar spine. 3.spinal stenosis at the L3-4 and L4-5 levels as described above. 4. Stable infrarenal abdominal aorta saccular aneurysm.. 5. Focal calcification of the posterior dura T5-6 possibly indicating an small meningioma.
== END | disposition home or self-care (01) ==
LOC: RADCTMAIN 12:56
PROVIDERS: ATTEND Orthopaedic Surgery
DX: M48.061 Spinal stenosis, lumbar region without neurogenic claudication (principal); M51.16 Intervertebral disc disorders with radiculopathy, lumbar region; I71.43 Infrarenal abdominal aortic aneurysm, without rupture
CPT/HCPCS: 72128; 72131

== ENCOUNTER 2023-10-12 05:48 | Inpatient (IN) | payer OTHER ==
[~2023-10-12 05:48] MED LIST: ACETAMINOPHEN TAB 500 MG TAB PO PRN; GABAPENTIN 300 MG CAP PO PRN; ONDANSETRON 4 MG/2 ML VIAL IVP PRN; TRANEXAMIC 1,000 MG/100ML-NACL 1,000 MG in SALINE 1 100ML.BAG IVPB PRN
[2023-10-12] MEDS ORDERED: ONDANSETRON 4 MG/2 ML VIAL IVP ONE (06:04)
[2023-10-12] MEDS ORDERED: HYDROmorphone 0.5 MG/0.5 ML SYRINGE IVP PRN ×2 (06:04→12:29)
[2023-10-12] MEDS ORDERED: droPERidol 5 MG/2 ML VIAL IVP PRN (06:04)
[2023-10-12] MEDS ORDERED: LIDOCAINE 1% (10MG/ML) FOR IV START INTRADERMA PRN (06:04)
[2023-10-12] MEDS ORDERED: DEXAMETHASONE SOD PHOSPHATE 4 MG/ML 1 ML VIAL IV ONE (06:04)
[2023-10-12 06:52] LABS: Glucose,Whole Blood 132 mg/dL (70-110)
--- NOTE | 2023-10-12 06:57 | P.HPOR ---
History of Present Illness H&P Date: 10/02/23 .D:Date: 10/02/23 : 11:41am .T:Title: [facility] History and Physical Date of :[birth year] [id number]: NKDA Age: 78 year Height: 5'9" Weight: 220 lbs BMI: 32.49 kg/m2 Occupation: Retired VAS: 8 Hand: Right IMPRESSION: It was my pleasure to have seen and examined [place]. I reviewed the patient's clinical syndrome, physical findings, and imaging studies during the appointment today. It is my impression that the patient has a diagnosis of. 1. L4-S1 stenosis, severe 2. Grade 1 retrolisthesis of L5 on S1 3. Neurogenic claudication 4. Low back pain 5. Fall from stairs I outlined the natural course history without intervention and various interventional options. Spine Surgery Risk Review Mr. Harden is presenting for evaluation of low back pain. It was my pleasure to have seen and examined Mr. Harden. In our visit today we have had a chance to go over subjective complaints, physical examination findings and treatments including the natural course history without intervention and various interventional options. The patients imaging demonstrates: CT vides completed at [facility] 08/2023: Images reviewed demonstrate severe spondylosis L4-S1 with severe arthrosis, hypertrophy, central and foraminal stenosis, ligamental overgrowth, retrolisthesis L5-S1, spondylolisthesis L4-5, vacuum discs. NEW L1 VCF 40% compression with local kyphosis noted as well. CT scancompleted at [facility] from 05/26/2023of L umbarSpine: L4-S1 stenosis severe with L4-S1 spondylosis severe. Retrolisthesis L5-S1 due to disc collapse, anterior listhesis of L4-5 and facet arthropathy. Disc degeneration is severe with osteophytosis, facet hypertrophy causing central as well as foraminal stenosis b/l. No fractures noted at this time. No lesions. LL is flattened due to findings as well as outside range of PI. MRI scancompleted at [facility] from 05/13/23 of LumbarSpine: IMPRESSION: 1. Severe multilevel degenerative disc disease with multilevel central stenosis as outlined above. XRay Lumbar Multiview (AP, Lateral, Flexion, Extension) with AP pelvis; 5 views taken at [facility] on 05/04/23: moderate multilevel spondylitic and degenerative changes with mild curvature convex to the left. Multilevel diminished disc height.Vacuum disc present at L4-L5, L5-S1.Grade 1 retrolisthesis L5 onto S1.Vertebral body heights are preserved. No acute osseous abnormalities. - AP Pelvis: The visualized sacrum and iliac wings are within normal limits. On physical exam, Mr. Harden demonstrates: Continued diffuse low back pain. He states that this pain has been ongoing since 2009, without any known injury or trauma to indicate an exact onset of his symptoms. He states that his pain has progressively worsened over the last several months. He notes that his low back pain worsens after all activity, which makes it very difficult for him to complete any of activities of daily living. He states that his symptoms have started to very significantly affect his overall quality of life. He reports experiencing severe sleep disturbances related to his ongoing pain and associated symptoms. I have explained to the patient that as their condition progresses it will cause further neurological deficits and eventual paralysis. Based on the patients imaging, physical exam, and the rapid progression and disabling nature of their symptoms, at this time I recommend surgery in the form of a: L2-Pelvis decompression and fusion. I discussed the risk and benefits of this procedure at length with Mr. Harden. The patient agreed to considered pursuing the procedure above mentioned. Prior to surgery, she should follow up with her PCP (Cardio, ID, IM etc) for clearance. Questions were invited and answered, and the patient wishes to proceed as outlined below. Diagnosis: 1. L4-S1 severe spondylosis with severe stenosis 2. L1 VCF 40% compression with local kyphotic deformity 3. Low back pain 4. Neurogenic claudication 5. Complex medical patient Currently, I am recommendin.L2-Pelvis decompression and fusionwith L1 kyphoplasty 2.Review of surgical risks and benefits as well as an educational packet on the proposed surgical procedure. Risks: All surgical procedures come with inherent risks, including those related to positioning, anesthesia, intraoperative findings, and postoperative complications. It is important to understand that surgery does not come with any guarantee of a successful outcome as complications and adverse events are always possible. The patient was given a handout in office today discussing the surgical procedure and risks associated with the intervention, both of which were discussed with the patient. These risks include but are not limited to the following: * Experiencing same, different or even worse symptoms in back, neck, arms, or legs compared to before surgery. Requiring further surgery or other forms of treatment presently or at some time in the future at same or other levels of the intended spine surgery. On an extreme but fortunately relatively rare basis severe complication such as blindness, stroke, heart attack, temporary and/or permanent nerve injury, paralysis, coma, or may occur, sometimes without known explanation. Surgical complications may include but are not limited to risk of infection, fluid accumulation in the surgical dissection site, including a seroma or hematoma, that requires additional surgery, wound drainage, bleeding, new numbness or weakness, vision changes/loss, spinal fluid leakage, non-healing and/or infected incision, headaches, difficulty or inability to swallow, hoarseness, hemopneumothorax, pneumothorax, impotence, retrograde ejaculation, vaginal dryness; injury to nerves, spinal cord, blood vessels, lymphatics or other vital organs (i.e., bowel injury, injury to the great vessels); heterotopic bone formation; complications related to the hardware such as screws, rods, cages including misplaced hardware, device failure, instrumentation at the wrong spine level, hardware fracture/breakage, or hardware loosening; vertebral failure of the spinal column above or below the newly placed hardware; retained surgical instrumentations or devices and the need for further surgery. * Medical risks of the planned spine surgery include but are not limited to generalized Infections to the whole body or local areas outside of the surgical site (sepsis), heart attack, bleeding, anaphylaxis, meningitis, seizure, epilepsy, hearing loss, burn cerda, laceration of the head or other areas of the body, bruising, hypersensitivity of the skin, bladder over distension; allergic reaction; shoulder injury related to positioning; fat, blood and air clots to other areas of the body like heart, lungs, brain; failure of internal organs such as lungs, kidneys, liver and excessive bleeding. If blood transfusions are necessary, note that transfusions may cause intolerance reactions such as anaphylaxis or other complex reactions. Despite best efforts, the results of spine surgery might not heal in terms of bone, soft tissues such as skin, fascia, ligaments, and joints. Additionally, in order to achieve best possible results, spine surgery may be carried out beyond the initially planned levels and involve decompression, fusion including insertion of hardware at levels other than the original intended area of surgical interest change some portions of the procedure in order to ensure the best possible outcomes. With spine surgery and spinal fusion, there are different off label uses of instrumentation (devices, implants and hardware) as well as biological substances (bone morphogenic proteins, demineralized bone matrix) as well as u sing extra bone from allograft sources (i.e. cadaver bone) or autograft (iliac crest bone, ribs, or the spine itself). The patient has been given information about these practices and their inherent risks and benefits. [facility] is an educational center that serves as a training facility for neurosurgical and orthopedic CALL CENTER ANALYST and Nursing students. Physician assistants are medically trained surgical providers who function in the outpatient, inpatient, and operating room setting under the direct supervision of the attending surgeon. [facility] has multiple operating rooms with single and overlapping rooms running daily. They currently function under the required guidelines as produced by the [facility] Finance Committee with regards to the overlapping rooms and will continue to comply with changes to this policy as they occur. The requirements include and are complied with as follows: (1) the critical portions of the overlapping rooms will not occur at the same time, (2) the attending physician will be physically present during the critical portions of the procedure and immediately available during the entire case, and (3) a back-up attending is designated should the primary attending not be immediately available. The patient has had a chance to review all the listed information, has been given print outs detailing this information, and has had all his/her questions answered to their satisfaction. It was my pleasure to have seen and examined Mr. Harden. In our visit today we have had a chance to go over my understanding of our patient's current condition, the natural course history without intervention and various interventional options. Questions were invited and answered, and the patient wishes to proceed as outlined above. I have seen and examined the patient for 25 minutes and we have spent more than 50% of the time in repeat and detailed counseling about the patient's condition, its natural course history with out and as much as can be predicted with surgery and re-review of various surgical treatment options. In conclusion, Mr. Harden requested we proceed with the above suggested surgery and are willing to accept risks and limitations of the suggested surgery as nature of the disease process and our best attempts at treatment for the condition. Thank you again for allowing us to be part of your patient's care. Please don't hesitate to contact me if you have any further questions. Follow-up: Post procedure Patient Education: (Informational booklet, instructions, etc) given at today's appointment: Yes .ED:Patient Education: Y Medications Reviewed: YES In our visit today Mr. Harden and I have had a chance to go over my understanding of the patient's current condition, the natural course history without intervention and various interventional options. Questions were invited and answered, and the patient wishes to proceed as outlined above. I will be sure to keep you updated afterMr. Fina returns here for further follow-up. Thank you again for your referral. Please do not hesitate to contact me if you have any further questions. Signed and authenticated by: Herb Arias [facility] [address] [place] [id number] This message is confidential, intended only for the named recipient(s) and may contain information that is privileged or exempt from disclosure under applicable law. If you are not the intended recipient(s), you are notified that the dissemination, distribution or copying of this information is strictly prohibited. If you received this message in error, please notify the sender then delete this message. Patient verbalizes understanding of the information discussed. The above note was initiated by Chely Ash, physician recording pier master assistant for Dr. Herb Pandey. This note has been reviewed by Dr. Pandey, who has made his personal changes and impressions for this document. CC: [facility] # SIGNED BY Herb Pandey (GOO)10/12/2023 06:56AM Past Medical History Past Medical History: Cancer, COPD, Diabetes Mellitus, Eye Disorder, GERD/Reflux, Hearing Disorder / Deafness, Hyperlipidemia, Hypertension, Os teoarthritis (OA), Pneumonia, Prostate Disorder, Sleep Apnea/CPAP/BIPAP, Vascular Disorder Additional Past Medical History / Comment(s): NIDDM type II, neuropathy bilateral hands/feet, diabetic retinopathy, MAGAN with Cpap, skin cancer with removals, diverticular disease, RLS, BPH, bilateral ear infections/tinnitis/[place] uses hearing aides History of Any Multi-Drug Resistant Organisms: None Reported Past Surgical History: Back Surgery, Hernia Repair, Orthopedic Surgery Additional Past Surgical History / Comment(s): Cervical fusion, L5 back surgery, umbilical hernia, colonoscopies, vasectomy, circumcism. Past Anesthesia/Blood Transfusion Reactions: No Reported Reaction Smoking Status: Former smoker - Past Family History Father Family Medical History: Unable to Obtain Mother Family Medical History: No Reported History Additional Family Medical History / Comment(s): Mother lived into her 90s. Medications and Allergies Home Medications Medication Instructions Recorded Confirmed Type Albuterol Inhaler [Ventolin Hfa 1 puff INHALATION RT-Q4H PRN 09/23/21 10/06/23 History Inhaler] Fluticasone Propion/Salmeterol 1 puff INHALATION RT-BID 09/23/21 10/06/23 History [Fluticasone-Salmeterol 250-50] Latanoprost [Xalatan 0.005%] 1 drop BOTH EYES HS 09/23/21 10/06/23 History Lidocaine 5% Patch [Lidoderm 5% 1 patch TOPICAL DAILY 09/23/21 10/06/23 History Patch] Tamsulosin [Flomax] 0.8 mg PO DAILY 09/23/21 10/06/23 History Tiotropium 2.5 Mcg/Puff [Spiriva 2 puff INHALATION RT-DAILY 09/23/21 10/06/23 History Respimat 2.5 Mcg] carvediloL [Coreg*] 25 mg PO BID-W/MEALS tab 10/14/21 10/06/23 Rx Aspirin EC [Ecotrin Low Dose] 81 mg PO DAILY 11/04/22 10/06/23 History Carbamide Peroxide [Debrox Otic] 5 - 10 drops BOTH EARS BID PRN 11/04/22 10/06/23 History Clotrimazole Cream [Lotrimin Cream] 1 applic TOPICAL BID PRN 11/04/22 10/06/23 History Finasteride [Proscar] 5 mg PO DAILY 11/04/22 10/06/23 History Ketoconazole [Ketoconazole 2% 1 applic TOPICAL DAILY PRN 11/04/22 10/06/23 History Shampoo] Omeprazole 20 mg PO DAILY 11/04/22 10/06/23 History Sildenafil Citrate [Viagra] 100 mg PO DAILY PRN 11/04/22 10/06/23 History Simvastatin [Zocor] 20 mg PO HS 11/04/22 10/06/23 History Zinc Gluconate [Zinc] 50 mg PO DAILY 11/04/22 10/06/23 History metFORMIN HCL [Glucophage] 850 mg PO DAILY 11/04/22 10/06/23 History rOPINIRole HCL [Requip] 3 mg PO HS 11/04/22 10/06/23 History traMADol HCl [Ultram] 50 mg PO Q6H PRN 10/06/23 10/06/23 History Allergies Allergy/AdvReac Type Severity Reaction Status Date / Time iodine Allergy Anaphylaxis Verified 10/12/23 06:32 Physical Examination Osteopathic Statement: *. No significant issues noted on an osteopathic structural exam other than those noted in the History and Physical/Consult. Results - Labs Labs: Abnormal Lab Results - Last 24 Hours (Table) 10/12/23 Range/Units 06:51 POC Glucose (mg/dL) 132 H (70-110) mg/dL
--- NOTE | 2023-10-12 06:59 | P.PN ---
Progress Note - Text Progress Note Date: 10/12/23 History and Physical UPDATE I have seen and examined the patient and reviewed the history and physical. There appear to be no significant changes in the patient's current medical status as outlined in the current History and Physical. we discussed at length different options for him for surgical intervention. The patient's more recent computed tomography scan shows a new fracture at L1. Due to this fracture we will treat the bottom spondylosis L4 through pelvis with decompression and fusion and we will treat the L1 fracture with kyphoplasty. He is comfortable with this we discussed at length risks and benefits as well as the procedure potential outcomes and alternatives and he understands these and is comfortable with proceeding as outlined.
[2023-10-12] MEDS: LACTATED RINGERS 1,000 ML IV SCH (07:00)
[2023-10-12] MEDS ORDERED: MIDAZOLAM 2 MG/2 ML VIAL IVP ONE (07:12)
[2023-10-12 07:18] LABS: Basophils # (A) 0.1 k/uL (0-0.2); Basophils % (A) 1 %; Eosinophils # (A) 0.3 k/uL (0-0.7); Eosinophils % (A) 3 %; HCT 42.9 % (39.0-53.0); HGB 14.2 gm/dL (13.0-17.5); Lymphocytes # (A) 1.9 k/uL (1.0-4.8); Lymphocytes % (A) 23 %; MCV 93.8 fL (80.0-100.0); Mean Platelet Volume 7.6; Monocytes # (A) 0.8 k/uL (0-1.0); Monocytes % (A) 9 %; Neutrophils # (A) 5.3 k/uL (1.3-7.7); Neutrophils % (A) 63 %; Platelet Count 210 k/uL (150-450); RBC 4.58 m/uL (4.30-5.90); RDW 15.1 % (11.5-15.5); WBC 8.4 k/uL (3.8-10.6)
[2023-10-12 07:32] LABS: African American GFR (CKD) 70 (>60 ml/min/1.73 sqM); Anion Gap 13 mmol/L; Blood Urea Nitrogen 21 mg/dL (9-20); Calcium 9.3 mg/dL (8.4-10.2); Carbon Dioxide 22 mmol/L (22-30); Chloride 107 mmol/L (98-107); Glucose 132 mg/dL (74-99); Non-African American GFR(CKD) 60 (>60 ml/min/1.73 sqM); Potassium 4.1 mmol/L (3.5-5.1); Sodium 142 mmol/L (137-145)
[2023-10-12] MEDS ORDERED: PHENYLEPHRINE 10 MG/ML VIAL ONE (07:34)
[2023-10-12] MEDS ORDERED: ePHEDrine 50 MG/ML 1 ML VIAL ONE (07:34)
[2023-10-12] MEDS ORDERED: NEOSTIGMINE 1 MG/ML 10 ML VIAL ONE (07:34)
[2023-10-12] MEDS ORDERED: SUCCINYLCHOLINE CHLORIDE 200 MG/10 ML VIAL IV ONE (07:34)
[2023-10-12] MEDS ORDERED: LIDOCAINE 1% INJ 10MG/ML (20 ML MDV) ONE (07:34)
[2023-10-12] MEDS ORDERED: ROCURONIUM 10 MG/ML (5 ML VIAL) IV ONE (07:34)
[2023-10-12] MEDS ORDERED: TRANEXAMIC 1,000 MG/100ML-NACL PREMIX BAG ONE (07:34)
[2023-10-12] MEDS ORDERED: GLYCOPYRROLATE 0.2 MG/ML 2 ML VIAL ONE (07:34)
[2023-10-12] MEDS ORDERED: PROPOFOL 10 MG/ML 20 ML VIAL IV ONE (07:34)
[2023-10-12] MEDS ORDERED: fentaNYL (PF) 50 MCG/ML 2 ML AMP ONE (07:34)
[2023-10-12] MEDS ORDERED: diphenhydrAMINE 50 MG/ML 1 ML VIAL ONE (07:34)
[2023-10-12] MEDS ORDERED: methylPREDNISolone SOD SUCCI 40 MG/ML 1 ML VIAL ONE (07:34)
[2023-10-12] MEDS ORDERED: LACTATED RINGERS 1,000 ML IV ONE ×3 (07:37→10:07)
--- NOTE | 2023-10-12 07:49 | XR ---
EXAMINATION TYPE: XR chest 1V DATE OF EXAM: 10/12/2023 COMPARISON: 11/04/2022 INDICATION: Confirmation Central line placement TECHNIQUE: Single frontal view of the chest is obtained. FINDINGS: The heart size is normal. The pulmonary vasculature is normal. No suspicious infiltrates are evident. Stable nodular densities at the right base. Displacement of a right central venous catheter, tip is within the right atrium.. No pneumothorax suzie dent IMPRESSION: 1. Stable nodular density right lung base. 2. Right central venous catheter tip is within the right atrium. No pneumothorax is evident.
[2023-10-12] MEDS ORDERED: THROMBIN (BOVINE) 5,000 UNIT VIAL TOPICAL ONE (08:12)
[2023-10-12] MEDS ORDERED: ceFAZolin 3,000 MG in SODIUM CHLORIDE 0.9% IRRIGATIO 3,000 ML IRRIGATION ONE (08:12)
[2023-10-12] MEDS ORDERED: GELATIN SPONGE,ABSORB (LARGE) 1 EACH SPONGE TOPICAL ONE (08:12)
[2023-10-12] MEDS ORDERED: GENTAMICIN 80 MG in SODIUM CHLORIDE 0.9% IRRIGATIO 3,000 ML IRRIGATION ONE (08:12)
--- NOTE | 2023-10-12 08:41 | P.ANPRN ---
Procedure Note - Anesthesia - Invasive Line Right Central Line Time Out Performed: Yes Date of Procedure: 10/12/23 Time of Procedure: 07:12 Location of Patient: PreOp Preparation: Sterile Prep, Sterile Dressing Central Line Location: Internal Jugular Ultrasound Used: Yes Purpose - Visualization and Identification of Vasculature: Yes Image Stored and Saved: Yes Narrative: Central line placement per sterile protocol utilized.
[2023-10-12] MEDS ORDERED: IOPAMIDOL M200 10 ML VIAL MISCELLANE ONE ×2 (09:17)
[2023-10-12] MEDS ORDERED: VANCOMYCIN 1,000 MG VIAL MISCELLANE ONE ×2 (11:40→11:42)
[2023-10-12] MEDS ORDERED: TOBRAMYCIN SULFATE 1.2 GM VIAL MISCELLANE ONE (11:41)
--- NOTE | 2023-10-12 12:26 | XR ---
Fluoroscopy INDICATION: Pain FINDINGS: Fluoroscopy time: 1 minute 39 seconds. Total dose area product (DAP) in uGy*m?, mGy*cm? (or similar): 3111.219 Images obtained: 12. IMPRESSION: 1. Documentation of fluoroscopy.
[2023-10-12] MEDS ORDERED: HYDROcodone/APAP 5-325MG 1 EACH TAB PO PRN (12:29)
[2023-10-12] MEDS ORDERED: SENNOSIDES-DOCUSATE SODIUM 1 EACH TAB PO PRN (12:29)
[2023-10-12] MEDS ORDERED: traMADol 50 MG TAB PO PRN (12:29)
[2023-10-12] MEDS ORDERED: MAGNESIUM HYDROXIDE 2,400 MG/30 ML CUP PO PRN (12:29)
[2023-10-12] MEDS ORDERED: HYDROmorphone 1 MG/ML 1 ML SYRINGE IVP PRN (12:29)
[2023-10-12 12:56] LABS: Glucose,Whole Blood 126 mg/dL (70-110)
[2023-10-12] MEDS: GABAPENTIN 300 MG CAP PO SCH ×2 (16:53→19:57)
[2023-10-12] MEDS: ACETAMINOPHEN TAB 325 MG TAB PO SCH (18:23)
[2023-10-12] MEDS: HYDROcodone/APAP 10-325MG 1 EACH TAB PO PRN (19:57)
[2023-10-13] MEDS: ACETAMINOPHEN TAB 325 MG TAB PO SCH ×5 (00:42→23:19)
[2023-10-13] MEDS ORDERED: ALBUTEROL NEBULIZED 1.25 MG/3 ML INHALATION PRN (03:41)
[2023-10-13] MEDS ORDERED: DEXTROSE 50% SYRINGE 50 ML IVP PRN ×2 (03:42)
--- NOTE | 2023-10-13 04:31 | P.CONS ---
History of Present Illness - Reason for Consult Consult date: 10/12/23 perioperative medical management - Chief Complaint L1 fracture - History of Present Illness 78 year old male , coming in for scheduled lumbar decompression and fusion , and L 1 kyphoplasty, tolerated procedure well no observed immediate post op complications, denies any chest pain , trouble breathing, nausea , vomiting, fever, chills, abd pain. or new onset weakness or numbness in lower extremities review of systems Pertinent positives as noted in HPI. All other systems were reviewed and are negative on exam Constitutional: No acute distress, conversant, pleasant Eyes: Anicteric sclerae, moist conjunctiva, Pupils equal round reactive to light ENMT: NC/AT Oropharynx clear, no erythema, or exudates Neck: Supple, no masses, or JVD No carotid bruits No thyromegaly Lungs: Clear to auscultation Clear to percussion Normal respiratory effort, no accessory muscle use Cardiovascular: Heart regular in rate and rhythm, No murmurs, gallops, or rubs No peripheral edema Abdominal: Soft Nontender, no guarding, rebound or rigidity Abdomen moving with respiration Normoactive bowel sounds Extremities: No digital cyanosis No clubbing Pedal pulses intact and symmetrical Radial pulses intact and symmetrical No calf tenderness Psychiatric: Alert and oriented to person, place and time Appropriate affect fair judgement Neuro Muscles Strength 5/5 in all 4 extremities Sensation to light touch grossly present throughout Cranial nerves II-XII grossly intact Past Medical History Past Medical History: Cancer, COPD, Diabetes Mellitus, Eye Disorder, GERD/Reflux, Hearing Disorder / Deafness, Hyperlipidemia, Hypertension, Osteoarthritis (OA), Pneumonia, Prostate Disorder, Sleep Apnea/CPAP/BIPAP, Vascular Disorder Additional Past Medical History / Comment(s): NIDDM type II, neuropathy bilateral hands/feet, diabetic retinopathy, MAGAN with Cpap, skin cancer with removals, diverticular disease, RLS, BPH, bilateral ear infections/tinnitis/[place] uses hearing aides History of Any Multi-Drug Resistant Organisms: None Reported Past Surgical History: Back Surgery, Hernia Repair, Orthopedic Surgery Additional Past Surgical History / Comment(s): Cervical fusion, L5 back surgery, umbilical hernia, colonoscopies, vasectomy, circumcism. Past Anesthesia/Blood Transfusion Reactions: No Reported Reaction Past Psychological History: No Psychological Hx Reported Additional Psychological History / Comment(s): Pt resides with his spouse, who is also ill. Pt uses a cane to ambulate. He normally can drive. He has a nebulizer. Smoking Status: Former smoker Past Alcohol Use History: None Reported Additional Past Alcohol Use History / Comment(s): Pt started smoking as a teen and quit in 2007. Past Drug Use History: None Reported - Past Family History Father Family Medical History: Unable to Obtain Mother Family Medical History: No Reported History Additional Family Medical History / Comment(s): Mother lived into her 90s. Medications and Allergies Home Medications Medication Instructions Recorded Confirmed Type Albuterol Inhaler [Ventolin Hfa 1 puff INHALATION RT-Q4H PRN 09/23/21 10/06/23 History Inhaler] Fluticasone Propion/Salmeterol 1 puff INHALATION RT-BID 09/23/21 10/06/23 History [Fluticasone-Salmeterol 250-50] Latanoprost [Xalatan 0.005%] 1 drop BOTH EYES HS 09/23/21 10/06/23 History Lidocaine 5% Patch [Lidoderm 5% 1 patch TOPICAL DAILY 09/23/21 10/06/23 History Patch] Tamsulosin [Flomax] 0.8 mg PO DAILY 09/23/21 10/06/23 History Tiotropium 2.5 Mcg/Puff [Spiriva 2 puff INHALATION RT-DAILY 09/23/21 10/06/23 History Respimat 2.5 Mcg] carvediloL [Coreg*] 25 mg PO BID-W/MEALS tab 10/14/21 10/06/23 Rx Aspirin EC [Ecotrin Low Dose] 81 mg PO DAILY 11/04/22 10/06/23 History Carbamide Peroxide [Debrox Otic] 5 - 10 drops BOTH EARS BID PRN 11/04/22 10/06/23 History Clotrimazole Cream [Lotrimin Cream] 1 applic TOPICAL BID PRN 11/04/22 10/06/23 History Finasteride [Proscar] 5 mg PO DAILY 11/04/22 10/06/23 History Ketoconazole [Ketoconazole 2% 1 applic TOPICAL DAILY PRN 11/04/22 10/06/23 History Shampoo] Omeprazole 20 mg PO DAILY 11/04/22 10/06/23 History Sildenafil Citrate [Viagra] 100 mg PO DAILY PRN 11/04/22 10/06/23 History Simvastatin [Zocor] 20 mg PO HS 11/04/22 10/06/23 History Zinc Gluconate [Zinc] 50 mg PO DAILY 11/04/22 10/06/23 History metFORMIN HCL [Glucophage] 850 mg PO DAILY 11/04/22 10/06/23 History rOPINIRole HCL [Requip] 3 mg PO HS 11/04/22 10/06/23 History traMADol HCl [Ultram] 50 mg PO Q6H PRN 10/06/23 10/06/23 History Allergies Allergy/AdvReac Type Severity Reaction Status Date / Time iodine Allergy Anaphylaxis Verified 10/12/23 06:32 Physical Exam Vitals: Vital Signs Temp Pulse Pulse Resp BP Pulse Ox 10/13/23 01:31 98.8 F 107 H 18 102/58 94 L 10/12/23 19:48 98.9 F 105 H 20 124/80 95 10/12/23 16:24 96 16 149/83 96 10/12/23 15:24 85 16 145/82 95 10/12/23 14:54 81 16 122/65 94 L 10/12/23 14:24 80 16 134/68 94 L 10/12/23 14:09 82 16 128/69 93 L 10/12/23 13:54 76 16 124/66 93 L 10/12/23 13:39 76 16 124/69 93 L 10/12/23 13:24 73 16 123/68 94 L 10/12/23 13:09 74 16 122/70 94 L 10/12/23 12:54 76 16 118/64 94 L 10/12/23 12:39 79 16 118/59 94 L 10/12/23 12:24 85 16 125/71 92 L 10/12/23 07:22 80 16 144/60 98 10/12/23 06:40 138/85 10/12/23 06:36 97.9 F 88 16 137/116 97 Intake and Output 10/12/23 10/12/23 10/13/23 14:59 22:59 06:59 Intake Total 2902 100 Output Total 600 550 Balance 2302 -450 Intake: IV 2902 100 Output: Urine 250 550 Estimated Blood Loss 350 Other: Voiding Method Indwelling Catheter Weight 98.2 kg Results CBC & Chem 7: 10/12/23 07:05 10/12/23 07:05 Labs: Abnormal Lab Results - Last 24 Hours (Table) 10/12/23 10/12/23 10/12/23 Range/Units 06:51 07:05 12:55 BUN 21 H (9-20) mg/dL Glucose 132 H (74-99) mg/dL POC Glucose (mg/dL) 132 H 126 H (70-110) mg/dL Assessment and Plan Assessment: DM tight blood sugar control post op hold oral hypoglycemic agents insulin sliding scale COPD compensated supplemental oxygen as needed symbicort bid albuterol inhaler PRN encouraged to use incentive spirometry RLS resume requip hypertension controlled resume coreg BPH resume flomax lumbar spinal stenosis , s/p decompression and fusion L4 to pelvis POD zero L1 fracture s/p kyphoplasty pain control with opiates management per primary orthopedic team stable from medical stand point follow up CBC bmp in AM thank you for this consultation
[2023-10-13 05:48] LABS: Glucose,Whole Blood 138 mg/dL (70-110)
[2023-10-13] MEDS: LACTATED RINGERS 1,000 ML IV SCH (05:53)
[2023-10-13] MEDS: INSULIN ASPART (NovoLOG) 100 UNIT/ML VIAL SQ SCH ×4 (05:59→20:53)
[2023-10-13] MEDS: carvediloL 12.5 MG TAB PO SCH ×2 (06:02→17:48)
[2023-10-13] MEDS: HYDROcodone/APAP 10-325MG 1 EACH TAB PO PRN ×2 (06:03→23:22)
[2023-10-13] MEDS: PANTOPRAZOLE 40 MG TABLET PO SCH (06:03)
[2023-10-13] MEDS: FINASTERIDE 5 MG TAB PO SCH (09:32)
[2023-10-13] MEDS: TAMSULOSIN 0.4 MG CAP.ER.24H PO SCH (09:32)
[2023-10-13] MEDS: GABAPENTIN 300 MG CAP PO SCH ×3 (09:32→20:53)
[2023-10-13 09:33] LABS: HCT 36.5 % (39.6-50.0); HGB 11.7 g/dL (13.0-17.0); MCH 29.8 pg (27.0-32.0); MCHC 32.1 g/dL (32.0-37.0); MCV 93.1 FL (80.0-97.0); Mean Platelet Volume 9.6 FL (9.5-12.2); NRBC Per 100 WBC 0 X 10*3/uL (0.00-0.01); Platelet Count 204 X 10*3/uL (140-440); RBC 3.92 X 10*6/uL (4.40-5.60); RDW 15.4 % (11.5-14.5); WBC 13.11 X 10*3/uL (4.50-10.00)
[2023-10-13] MEDS: SYMBICORT 80-4.5 MCG INHALER INHALATION SCH ×2 (09:38→20:07)
[2023-10-13] MEDS: IPRATROPIUM 0.5 MG/2.5 ML NEBU INHALATION SCH ×4 (09:38→20:07)
[2023-10-13 09:45] LABS: Blood Urea Nitrogen 19.2 mg/dL (9.0-27.0); Chloride 103 mmol/L (96-109); Glucose 143 mg/dL (70-110); Potassium 4.4 mmol/L (3.5-5.5); Sodium 139 mmol/L (135-145)
[2023-10-13 09:46] LABS: Calcium 8.5 mg/dL (8.7-10.3); Carbon Dioxide 24.3 mmol/L (21.6-31.8)
[2023-10-13] MEDS: CYCLOBENZAPRINE 5 MG TAB PO PRN (10:00)
[2023-10-13 10:04] LABS: Basophils # (A) 0.02 X 10*3/uL (0.00-0.10); Basophils % (A) 0.2 %; Eosinophils # (A) 0.01 X 10*3/uL (0.04-0.35); Eosinophils % (A) 0.1 %; Lymphocytes # (A) 1.38 X 10*3/uL (0.90-5.00); Lymphocytes % (A) 10.5 %; Monocytes # (A) 1.75 X 10*3/uL (0.20-1.00); Monocytes % (A) 13.3 %; Neutrophils # (A) 9.88 X 10*3/uL (1.80-7.70); Neutrophils % (A) 75.4 %; RBC Morphology Normal (Normal)
--- NOTE | 2023-10-13 10:56 | P.PN ---
Subjective Progress Note Date: 10/13/23 Patient is a 78 male with a history of sleep apnea with CPAP, COPD, diabetes mellitus type 2 [id number], hypertension, dyslipidemia, and multiple other comorbid conditions who underwent L1 kyphoplasty with L4 through pelvis decompression and fusion. Patient seen and examined at bedside. He states his pain is fairly well- controlled. He denies any chest discomfort or shortness of breath. He had some nausea this morning which resolved. He initially was slightly lightheaded when he got up but that is also resolved. He states he wears a CPAP at home normally but does not have it with him. He does not check his blood sugars at home. Vital signs reviewed General: Nontoxic, no distress, appears at stated age Cardiovascular: S1S2 reg, no murmur, positive posterior tibial pulse bilateral, Lungs: CTA bilateral, no rhonchi, no rales, no accessory muscle use Abdominal: Soft, nontender to palpation, no guarding, no appreciable organomegaly Ext: No gross muscle atrophy, no edema b/l lower extremities, no contractures Neuro: CN II-XI grossly intact, no focal neuro deficits Psych: Alert, oriented, appropriate affect Assessment/Plan: Old male status post L1 kyphoplasty with L4 through pelvis decompression and fusion Obstructive sleep apnea -Had a long conversation with the patient that he should bring in his CPAP. I asked him to call his or his daughter to see if they could bring it in. Diabetes mellitus type 2, [id number] -Hold metformin -Continue sliding scale insulin -Hemoglobin A1c 6.09 September 2023 Acute blood loss anemia, anticipated outcome of surgery -No indication for transfusion -Repeat CBC in a.m. Hypertension, controlled - continue with Coreg 25 mg twice daily, -Follow blood pressures Chronic: Dyslipidemia BPH COPD without exacerbation Neuropathy RLS Imaging: None new reviewed Data Review: Labs reviewed from today include CBC and basic metabolic profile which are remarkable for white blood cell count 11.3, hemoglobin 11.7, blood sugar 143 Thank you for allowing us to participate in the care of this pleasant patient. Do not hesitate to contact us with questions. Someone can be reached from the [facility] hospitalist group all hours of the day at [phone] or via [employer] serve. This dictation was prepared using [employer] voice recognition software. Though every attempt is made to correct errors during dictation some may still e xist. Objective - Vital Signs Vital signs: Vital Signs Temp 98.6 F 10/13/23 08:00 Pulse 95 10/13/23 08:00 Resp 17 10/13/23 08:00 BP 122/78 10/13/23 08:00 Pulse Ox 95 10/13/23 08:00 FiO2 Intake & Output 10/12/23 10/13/23 10/13/23 18:59 06:59 18:59 Intake Total 3002 Output Total 1150 1140 Balance 1852 -1140 Weight 98.2 kg Intake: IV 3002 Output: Drainage 240 Lower Back 240 Urine 800 900 Estimated Blood Loss 350 Other: Voiding Method Indwelling Catheter - Labs CBC & Chem 7: 10/13/23 05:05 10/13/23 05:05 Labs: Abnormal Lab Results - Last 24 Hours (Table) 10/12/23 10/13/23 10/13/23 Range/Units 12:55 05:05 05:05 WBC 13.11 H (4.50-10.00) X 10*3/uL RBC 3.92 L (4.40-5.60) X 10*6/uL Hgb 11.7 L (13.0-17.0) g/dL Hct 36.5 L (39.6-50.0) % RDW 15.4 H (11.5-14.5) % Immature Gran # 0.07 H (0.00-0.04) X 10*3/uL Neutrophils # 9.88 H (1.80-7.70) X 10*3/uL Monocytes # 1.75 H (0.20-1.00) X 10*3/uL Eosinophils # 0.01 L (0.04-0.35) X 10*3/uL Glucose 143 H (70-110) mg/dL POC Glucose (mg/dL) 126 H (70-110) mg/dL Calcium 8.5 L (8.7-10.3) mg/dL 10/13/23 Range/Units 05:44 WBC (4.50-10.00) X 10*3/uL RBC (4.40-5.60) X 10*6/uL Hgb (13.0-17.0) g/dL Hct (39.6-50.0) % RDW (11.5-14.5) % Immature Gran # (0.00-0.04) X 10*3/uL Neutrophils # (1.80-7.70) X 10*3/uL Monocytes # (0.20-1.00) X 10*3/uL Eosinophils # (0.04-0.35) X 10*3/uL Glucose (70-110) mg/dL POC Glucose (mg/dL) 138 H (70-110) mg/dL Calcium (8.7-10.3) mg/dL
[2023-10-13 11:52] LABS: Glucose,Whole Blood 142 mg/dL (70-110)
--- NOTE | 2023-10-13 12:28 | P.PN ---
Subjective Progress Note Date: 10/13/23 Principal diagnosis: status post [id number] decompression fusion, L1 kyphoplasty Patient is examined today at bedside, he is resting comfortably. Internal medicine was and seen the patient. He is up sitting in his hospital chair. The LSO brace is available at bedside. Urinary catheter remains in place. Hemovac drain remains in place. He is having some discomfort but managed with current medications. Denies any headaches, lightheadedness, chest pain or shortness of breath. Objective - Vital Signs Vital signs: Vital Signs Temp 98.6 F 10/13/23 08:00 Pulse 95 10/13/23 08:00 Resp 17 10/13/23 08:00 BP 122/78 10/13/23 08:00 Pulse Ox 95 10/13/23 08:00 FiO2 Intake & Output 10/12/23 10/13/23 10/13/23 18:59 06:59 18:59 Intake Total 3002 Output Total 1150 1140 Balance 1852 -1140 Weight 98.2 kg Intake: IV 3002 Output: Drainage 240 Lower Back 240 Urine 800 900 Estimated Blood Loss 350 Other: Voiding Method Indwelling Catheter Indwelling Catheter - Exam Gen: AOx3, NAD VSS stable at this time Integument: Incision is clean, dry and intact. Dressing is in position and condition Palpation: Mild tenderness with palpation to the lower lumbar paraspinal region ROM: Full range of motion in all major muscle groups in the bilateral upper and lower extremities, no focal deficits Sensory Exam: Senory exam to light touch is intact C5-T1 Senosry exam to light touch is intact L2-S1 Motor: 5/5 strength of patient's bilateral upper extremities with shoulder elevation, shoulder abduction, elbow extension, elbow flexion, wrist extension, wrist flexion, associate veterinarian 4/5 strength appreciated in the right lower extremity with knee extension, knee flexion, plantar flexion, dorsiflexion, EHL, FHL, 5/5 strength appreciated with hip flexion 4+/ left lower extremity with hip flexion, knee extension, knee flexion, plantar flexion, dorsiflexion, EHL, FHL Reflexes: 2/4 in all UE and LE Negative Bettie's bilaterally Negative Babinski bilaterally Negative clonus bilaterally Special Test: Negative logroll maneuver bilateral lower extremities - Labs CBC & Chem 7: 10/13/23 05:05 10/13/23 05:05 Labs: Abnormal Lab Results - Last 24 Hours (Table) 10/12/23 10/13/23 10/13/23 Range/Units 12:55 05:05 05:05 WBC 13.11 H (4.50-10.00) X 10*3/uL RBC 3.92 L (4.40-5.60) X 10*6/uL Hgb 11.7 L (13.0-17.0) g/dL Hct 36.5 L (39.6-50.0) % RDW 15.4 H (11.5-14.5) % Immature Gran # 0.07 H (0.00-0.04) X 10*3/uL Neutrophils # 9.88 H (1.80-7.70) X 10*3/uL Monocytes # 1.75 H (0.20-1.00) X 10*3/uL Eosinophils # 0.01 L (0.04-0.35) X 10*3/uL Glucose 143 H (70-110) mg/dL POC Glucose (mg/dL) 126 H (70-110) mg/dL Calcium 8.5 L (8.7-10.3) mg/dL 10/13/23 10/13/23 Range/Units 05:44 11:50 WBC (4.50-10.00) X 10*3/uL RBC (4.40-5.60) X 10*6/uL Hgb (13.0-17.0) g/dL Hct (39.6-50.0) % RDW (11.5-14.5) % Immature Gran # (0.00-0.04) X 10*3/uL Neutrophils # (1.80-7.70) X 10*3/uL Monocytes # (0.20-1.00) X 10*3/uL Eosinophils # (0.04-0.35) X 10*3/uL Glucose (70-110) mg/dL POC Glucose (mg/dL) 138 H 142 H (70-110) mg/dL Calcium (8.7-10.3) mg/dL Assessment and Plan Assessment: Postoperative day #1 status post L4 to pelvis decompression and fusion, L1 kyphoplasty Plan: Pain control, continue with current medications. Stool softeners have been changed to be scheduled versus when necessary DVT prophylaxis, we'll start heparin later today 5000 units every 12 hours Monitor Hemovac, due to output we'll leave in place at this time. We'll continue to monitor surgical dressing, we'll change when we removed treated Weight-bear as tolerated, utilize LSO brace walking longer distances, no bending, twisting, lifting Encourage incentive Medical recommendations appreciated Discharge planning: Anticipate discharge in the next [id number] hours to home with home health care Time with Patient: Less than 30
--- NOTE | 2023-10-13 12:30 | P.OP ---
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 (Acute) Spondylosis of cervicothoracic spine with myelopathy (Acute) Procedure(s) Performed: 99299 OSTEOTOMY OF SPINE, POSTERIOR OR POSTEROLATERAL APPROACH, 3 COLUMNS, 1 VERTEBRAL SEGMENT (EG, PEDICLE/VERTEBRAL BODY SUBTRACTION); LUMBAR 5-SACRAL 1 57683 ARTHRODESIS, COMBINED POSTERIOR OR POSTEROLATERAL TECHNIQUE WITH POSTERIOR INTERBODY TECHNIQUE INCLUDING LAMINECTOMY AND/OR DISCECTOMY SUFFICIENT TO PREPARE INTERSPACE (OTHER THAN FOR DECOMPRESSION), SINGLE INTERSPACE, LUMBAR4-5 46831/50 ARTHRODESIS, SACROILIAC JOINT, OPEN, INCLUDES OBTAINING BONE GRAFT, INCLUDING INSTRUMENTATION, WHEN PERFORMED 28097 LAMINECTOMY, FACETECTOMY, OR FORAMINOTOMY (UNILATERAL OR BILATERAL WITH DECOMPRESSION OF SPINAL CORD, CAUDA EQUINA AND/OR NERVE ROOT[S] [EG, SPINAL OR LATERAL RECESS STENOSIS]), DURING POSTERIOR INTERBODY ARTHRODESIS, LUMBAR; SINGLE VERTEBRAL SEGMENT; LUMBAR 4-5 67920 POSTERIOR SEGMENTAL INSTRUMENTATION (EG, PEDICLE FIXATION, DUAL RODS WITH MULTIPLE HOOKS AND SUBLAMINAR WIRES); 3 TO 6 VERTEBRAL SEGMENTS; L4-PELVIS 98854 PELVIC FIXATION (ATTACHMENT OF CAUDAL END OF INSTRUMENTATION TO PELVIC BONY STRUCTURES) OTHER THAN SACRUM 14168i7 INSERTION OF INTERBODY BIOMECHANICAL DEVICE(S) (EG, SYNTHETIC CAGE, MESH) WITH INTEGRAL ANTERIOR INSTRUMENTATION FOR DEVICE ANCHORING (EG, SCREWS, FLANGES), WHEN PERFORMED, TO INTERVERTEBRAL DISC SPACE IN CONJUNCTION WITH INTERBODY ARTHRODESIS, EACH INTERSPACE; L4-5, L5-S1 69136 ARTHRODESIS, COMBINED POSTERIOR OR POSTEROLATERAL TECHNIQUE WITH POSTERIOR INTERBODY TECHNIQUE INCLUDING LAMINECTOMY AND/OR DISCECTOMY SUFFICIENT TO PREPARE INTERSPACE (OTHER THAN FOR DECOMPRESSION), SINGLE INTERSPACE, LUMBAR 5- SACRAL 1 75482 X2 LAMINECTOMY, FACETECTOMY, OR FORAMINOTOMY (UNILATERAL OR BILATERAL WITH DECOMPRESSION OF SPINAL CORD, CAUDA EQUINA AND/OR NERVE ROOT[S] [EG, SPINAL OR LATERAL RECESS STENOSIS]), DURING POSTERIOR INTERBODY ARTHRODESIS, LUMBAR; EACH ADDITIONAL SEGMENT, LUMBAR 5-SACRAL1 08001 STEREOTACTIC COMPUTER-ASSISTED (NAVIGATIONAL) PROCEDURE; SPINAL; NATY NAVIGATION FOR SCREW PLACEMENT USE OF IONM Implants: * NATY EVEREST SCRES AND XENIA * X1 CROSSLINK * GLOBUS SABLE CAGES X2 , 9-16MM X 12MM, 8DEG * X2 TORQ SCREWS SIJ * MAGNATOS, ARTHROCELL, CON TOUR, IFACTOR, AUTOGRAFT Anesthesia: GETA Surgeon: Herb Pandey Nursing Home Director #1: Vinnie Salmon (WAS PRESENT AND ASSISTED WITH ALL ASPECTS OF THE CASE FROM POSITION TO CLOSURE) Estimated Blood Loss (ml): 350 IV fluids (ml): 2,000 Urine output (ml): 450 Pathology: none sent Condition: stable Disposition: PACU Indications for Procedure: Mr. Harden is presenting for evaluation of low back pain. It was my pleasure to have seen and examined Mr. Harden. In our visit today we have had a chance to go over subjective complaints, physical examination findings and treatments including the natural course history without intervention and various interventional options. The patients imaging demonstrates: CT vides completed at [facility] 08/2023: Images reviewed demonstrate severe spondylosis L4-S1 with severe arthrosis, hypertrophy, central and foraminal stenosis, ligamental overgrowth, retrolisthesis L5-S1, spondylolisthesis L4-5, vacuum discs. NEW L1 VCF 40% compression with local kyphosis noted as well. CT scancompleted at [facility] from 05/26/2023of [facility]: L4-S1 stenosis severe with L4-S1 spondylosis severe. Retrolisthesis L5-S1 due to disc collapse, anterior listhesis of L4-5 and facet arthropathy. Disc degeneration is severe with osteophytosis, facet hypertrophy causing central as well as foraminal stenosis b/l. No fractures noted at this time. No lesions. LL is flattened due to findings as well as outside range of PI. MRI scancompleted at [facility] from 05/13/23 of [facility]: IMPRESSION: 1. Severe multilevel degenerative disc disease with multilevel central stenosis as outlined above. XRay Lumbar Multiview (AP, Lateral, Flexion, Extension) with AP pelvis; 5 views taken at [facility] on 05/04/23: moderate multilevel spondylitic and degenerative changes with mild curvature convex to the left. Multilevel diminished disc height.Vacuum disc present at L4-L5, L5-S1.Grade 1 retrolisthesis L5 onto S1.Vertebral body heights are preserved. No acute osseous abnormalities. - AP Pelvis: The visualized sacrum and iliac wings are within normal limits. On physical exam, Mr. Harden demonstrates: Continued diffuse low back pain. He states that this pain has been ongoing since 2009, without any known injury or trauma to indicate an exact onset of his symptoms. He states that his pain has progressively worsened over the last several months. He notes that his low back pain worsens after all activity, which makes it very difficult for him to complete any of activities of daily living. He states that his symptoms have started to very significantly affect his overall quality of life. He reports experiencing severe sleep disturbances related to his ongoing pain and associated symptoms. I have explained to the patient that as their condition progresses it will cause further neurological deficits and eventual paralysis. Based on the patients imaging, physical exam, and the rapid progression and disabling nature of their symptoms, at this time I recommend surgery in the form of a: L2-Pelvis decompression and fusion. I discussed the risk and benefits of this procedure at length with Mr. Harden. The patient agreed to considered pursuing the procedure above mentioned. Prior to surgery, she should follow up with her PCP (Cardio, ID, IM etc) for clearance. Questions were invited and answered, and the patient wishes to proceed as outlined below. Diagnosis: 1. L4-S1 severe spondylosis with severe stenosis 2. L1 VCF 40% compression with local kyphotic deformity 3. Low back pain 4. Neurogenic claudication 5. Complex medical patient Currently, I am recommendin.L2-Pelvis decompression and fusionwith L1 kyphoplasty 2.Review of surgical risks and benefits as well as an educational packet on the proposed surgical procedure. Description of Procedure: L4-PELVIS open Decompression and fusion (rocco) The patient was seen and examined in the preoperative area. All preoperative protocols were followed. Informed consent was obtained, risks and benefits of the procedure were discussed at length. Risks including bleeding infection damage to the surrounding tissue and risk of reoperation were discussed with the patient. Risk of anesthesia up to and including was discussed with the patient. These are outlined in the risk review. They were willing to accept these risks and all the risks of surgery. The patient was given a weight-based dose of antibiotics in the form of 2 g Ancef. The patient was seen and evaluated by the anesthesia team who deemed them fit for surgery. The site was marked, the patient was willing to proceed with the procedure. The patient was transferred to the operative suite by the Department of anesthesia. They were then drifted off to sleep by the department anesthesia and GETA was performed. The patient tolerated this well. Cedeno catheter was placed by nursing staff, a-traumatically. Once confirmation of lines and ventilation the patient was transferred to a prone Ryley table very carefully. All bony prominences including wrists, elbows, axilla, chest, hips, and thighs, and feet were padded very well. Special attention was paid to the genitalia, and these were padded accordingly. SCDs were placed on bilateral lower extremities and were connected. Arms were well padded and placed on arm boards up and out in the 90/90 position. Once in position, again we confirmed good ventilation capabilities and that lines were running appropriately. The patients Lumbar spine was then exposed. 1010s were placed outlining the incision site. Standard alcohol was used to clean the incision site and allowed to dry. C-arm was used to needle localize the pedicles at L4-S1 and bio-leah the patient and confirm level for incision which was marked with a skin marker. Operative briefing was performed with all teams and everyone in agreement to proceed. The patient was then prepped and draped in a normal sterile fashion. Timeout was then performed, and all parties agreed with the procedure to be performed. Midline skin incision was made over the previously bio-marked area and dissection taken down over the SP of L3-PELVIS. L4-S1 was taken out over facet joints and TPs and a penfield 4 used to leah the L4 pedicle. Lateral image used to confirm levels. Once confirmed, screws were proceeded to be placed b/l at pedicles from L4-S1 using [employer] Navigation. An SP clamp was used, 3D C arm spin obtained and confirmed to be accurate. Once this was confirmed screws were placed using a navigated kev, navigated awl-tap and navigated dumpster driver. Once screws were placed they were confirmed to be in good position using AP and Lateral fluoroscopy. The wound was then irrigated. Screws were tested and all tested above 20 mA. We then proceeded to pelvic screw placement and SIJ fusion b/l. Pelvic screws were placed in a modified Palmer approach with navigation. Kev was used to create starting point followed by navigated awltap and then navigated, measured screw. 9.5 mm x 80 mm screws placed using navigation. Screws had good purchase and were in good position on AP/LAT/INLET/OUTLET. Bilateral SIJ fusion was then completed by burring out SIJ and then placing screws across in an S2Ai approach the SIJ. This was done in a similar fashion with Rocco kev, awltap and screw dumpster driver. Once done, images taken again of the pelvis as done before which showed good placement of screws. The wound was irrigated. We then proceeded to decompression and cage placement. Attention was then turned to interbody fusion at L5-S1. Bilateral laminectomy, complete facetectomy and foraminotomy performed at L5-S1 using high speed kev and Kerrison rongeur. The ligamentum was removed and the dural sac decompressed. Exiting and traversing roots visualized and decompressed. Neural elements were then protected, and disc space accessed with an osteotome. Osteotome was then used to perform intradiscal osteotomy, 3 column, along with the Raptor osteotome. This allowed for passaged into the anterior 1/3 of the L5 body and removal of large posterior osteophytes which were causing severe tensioniing of the nerve roots. The level was then mobilized easily. Sequential shaving then done under lateral imaging and complete discectomy perfo rmed using sebastien, pituitary and curette. Once good bleeding endplates accomplished and good height jainism with trials, a combination of autograft, allograft and synthetic placed anterior in the disc space. The cage was then selected and impacted into place under lateral imaging. The cage was then expanded restoring height, lordosis and alignment. The cage was backfilled with bone graft through a funnel. The hydraulic punch press operator was removed and the area inspected. Good cage placement, stable cage and no injuries. Area was irrigated copiously, and meticulous hemostasis achieved. The tubular retractor was then removed under direct visualization. Attention was then turned to interbody fusion at L4-5. Bilateral laminectomy, complete facetectomy and foraminotomy performed at L4-5 using high speed kev and Kerrison rongeur. The ligamentum was removed and the dural sac decompressed. Exiting and traversing roots visualized and decompressed. Neural elements were then protected, and disc space accessed with an osteotome. Sequential shaving then done under lateral imaging and complete discectomy performed using sebastien, pituitary and curette. Once good bleeding endplates accomplished and good height jainism with trials, a combination of autograft, allograft and synthetic placed anterior in the disc space. The cage was then selected and impacted into place under lateral imaging. The cage was then expanded restoring height, lordosis and alignment. The cage was backfilled with bone graft through a funnel. The hydraulic punch press operator was removed and the area inspected. Good cage placement, stable cage and no injuries. Area was irrigated copiously, and meticulous hemostasis achieved. The wound and disc spaces were irrigated and meticulous hemostasis achieved. Rods were then sized and selected and placed into Pelvic and S1 screws b/l. Set screws locked these in place and then sequentially reduced into L4 and L5 b/l for alignment jainism. This was accomplished. Set screws were then all placed and final tightened. A cross link was selected and placed and final tightened. TPs were then decorticated with a high speed kev. The wound was irrigated with 3L Ancef irrigation, 3L gentamicin irrigation and 3L NSS. Surgery was placed over the dura. Autograft and MagnatOs then placed in the posterolateral gutters and impacted into place. Deep drain placed and secured to the skin. Final images confirmed good placement of hardware and good reduction of listhesis as well as jainism of height and lordosis. Fascia was then closed with #1 PDS./, and running PDS stratafix. Deep subq closed with 0 Vicryl. Superficial subq closed with 2-0 Vicryl and runnig 0 stratafix and skin with lashonda. Wound edges approximated very well. Wound was then cleaned with alcohol and dried. Wounds dressed with Optifoam dressings. The patient was then transferred off the table back to their hospital bed a- traumatically. They were extubated by the department of anesthesia. They were then transferred to PACU in stable condition having tolerated the procedure with no complications.
--- NOTE | 2023-10-13 16:18 | CT ---
EXAMINATION TYPE: CT lumbar spine wo con CT DLP: 1290.8 mGycm, Automated exposure control for dose reduction was used. DATE OF EXAM: 10/12/2023 10:39 PM COMPARISON: CT lumbar spine 08/14/2023. CLINICAL INDICATION:Male, 78 years old with history of s/p L4-pelvis decompr fusion; [facility], s/p L4-pelv is decompr fusion TECHNIQUE: Multiple axial images were obtained from the midportion of T11 through the sacroiliac rene nts. Soft tissue and bone windows in coronal and sagittal planes were obtained and reviewed. 3-D ref ormats of the bones were created on a separate workstation and submitted for review. Contrast used: mL of , none. Oral contrast used: none. FINDINGS: Bones: Generalized osteopenia without evidence of lytic/blastic bony lesion. Previous moderate to sev ere L1 compression fracture has been treated with injection of vertebral augmentation cement, degree of compression is stable. Mild retropulsion bowing of the superior posterior aspect of this vertebral body is similar to previous. No acute compression fracture is seen. There have been interval laminectomies with removal of the spinous processes L4 and L5 and partial re moval of the spinous process of L3 since the prior exam. Placement of bilateral pedicle screws and po sterior fixation rods at L4, L5, S1, plus fixation screws extending across the SI joints terminating in the bilateral iliac bones. Hardware appears intact and normally positioned within the bone. There are also prosthetic disc interspacers, close to midline L4-L5 and eccentric towards the left at L5-S1 . Hardware artifact results in limited visualization of the canal and foramina at the surgical levels, but postoperative changes result in decompression of the spinal canal from L3 to S1. Degenerative hazel nges of the lumbar spine with associated neural foraminal stenoses, are otherwise essentially stable from the prior exam. Soft tissues/other: Mild subsegmental atelectasis left lung base. Moderate calcification of the aorta and branches. Stable appearing saccular aneurysm of the infrarenal aorta measuring up to 3.1 cm whic h bulges posteriorly touching the anterior aspect of the L4 vertebral body. Partially seen distal colonic diverticuli, and what is probably a Cedeno in the bladder. Degenerative change of the right hip. Posterior paraspinous ill-definition of the soft tissues at the levels of surgery with several bubble s of gas, likely concordant with recent postoperative changes. There are overlying skin lashonda. IMPRESSION: 1. Status post posterior decompression from L3 to the sacrum, with placement of posterior fusion mable dware G1-X4-E2-pelvis. Discectomy with prosthetic disc interspacers L4-5 and L5-S1. 2. Hardware appears intact and normally aligned. 3. Interval placement of vertebral augmentation cement within the compressed L1 vertebral body. 4. Stable 3.1 cm infrarenal saccular aortic aneurysm.
[2023-10-13 17:01] LABS: Glucose,Whole Blood 156 mg/dL (70-110)
[2023-10-13] MEDS ORDERED: SODIUM CHLORIDE 0.9% 500 ML 500 ML IV ONE (17:43)
[2023-10-13 20:48] LABS: Glucose,Whole Blood 161 mg/dL (70-110)
[2023-10-13] MEDS: ATORVASTATIN 10 MG TAB PO SCH (20:53)
[2023-10-13] MEDS: LATANOPROST 0.005% OPHTH DROPS 2.5 ML BTL BOTH EYES SCH (22:24)
[2023-10-14 06:00] LABS: Glucose,Whole Blood 143 mg/dL (70-110)
[2023-10-14] MEDS: INSULIN ASPART (NovoLOG) 100 UNIT/ML VIAL SQ SCH ×4 (06:04→22:36)
[2023-10-14] MEDS: LACTATED RINGERS 1,000 ML IV SCH (06:04)
[2023-10-14] MEDS: ACETAMINOPHEN TAB 325 MG TAB PO SCH ×3 (06:26→17:26)
[2023-10-14] MEDS: MAGNESIUM HYDROXIDE 2,400 MG/30 ML CUP PO SCH (08:05)
[2023-10-14] MEDS: TAMSULOSIN 0.4 MG CAP.ER.24H PO SCH (08:06)
[2023-10-14] MEDS: GABAPENTIN 300 MG CAP PO SCH ×3 (08:06→22:36)
[2023-10-14] MEDS: PANTOPRAZOLE 40 MG TABLET PO SCH (08:06)
[2023-10-14] MEDS: SENNOSIDES-DOCUSATE SODIUM 1 EACH TAB PO SCH (08:06)
[2023-10-14] MEDS: FINASTERIDE 5 MG TAB PO SCH (08:06)
--- NOTE | 2023-10-14 09:12 | P.PN ---
Subjective Progress Note Date: 10/14/23 Principal diagnosis: 1. L4-S1 stenosis, severe 2. Grade 1 retrolisthesis of L5 on S1 3. Neurogenic claudication 4. Low back pain 5. Fall from stairs Patient seen and examined this morning. Patient is resting comfortably in bed. Patient does have complaint of moderate low back pain with activity. Medications will be adjusted. Patient states he has been up to the chair and working with physical therapy. LSO brace is at bedside. Surgical incision to the lumbar spine is clean dry and intact with Hemovac present with an output of 180 mL overnight. We will maintain drain at this time continue to monitor output. Encouraged patient to work with physical therapy and use of incentive spirometer. No acute concerns at this time. Objective - Vital Signs Vital signs: Vital Signs Temp 98.3 F 10/14/23 07:45 Pulse 74 10/14/23 07:45 Resp 21 10/14/23 07:45 BP 109/71 10/14/23 07:45 Pulse Ox 92 L 10/14/23 07:45 FiO2 Intake & Output 10/13/23 10/14/23 10/14/23 18:59 06:59 18:59 Intake Total 400 Output Total 1240 780 Balance -840 -780 Intake: Oral 400 Output: Drainage 140 180 Lower Back 140 180 Urine 1100 600 Other: Voiding Method Indwelling Catheter Indwelling Catheter - Exam Physical Examination General: The patient is awake and alert, in no acute distress Skin: Skin is warm and dry with no obvious rashes or lesions. Surgical incision to the lumbar spine, dressing is clean dry and intact with Hemovac present with 180 mL output overnight. Eye: Pupils are equal, round and reactive to light, extra-ocular movements are intact; there is normal conjunctiva bilaterally. Neck: The neck is supple, there is no tenderness and ROM intact. Cardiovascular: There is a regular rate and rhythm. No murmur, rub or gallop is appreciated. Respiratory: Lungs are clear to auscultation, respirations are non-labored, breath sounds are equal. Gastrointestinal: Soft, non-distended, non-tender abdomen. Back: There is no tenderness to palpation in the midline, paralumbar, parathoracic or buttocks region. There is no obvious deformity . Musculoskeletal: ROM limited secondary to pain and stiffness from surgical procedure. Muscle strength in all major muscle groups of bilateral upper extremities 5/5, bilateral lower extremities 4/5. Neurological: CN 2-12 intact. There are no obvious motor or sensory deficits. Movement and coordination equal and intact. Sensory exam to light touch intact C5-T1 and intact from L2-S1. Reflexes 2/4 in bilateral upper and lower extremities. Negative Hoffmans, babinski, and clonus signs. Psychiatric: Cooperative, appropriate mood & affect, normal judgment. - Labs CBC & Chem 7: 10/13/23 05:05 10/13/23 05:05 Labs: Abnormal Lab Results - Last 24 Hours (Table) 10/13/23 10/13/23 10/13/23 Range/Units 05:05 05:05 11:50 WBC 13.11 H (4.50-10.00) X 10*3/uL RBC 3.92 L (4.40-5.60) X 10*6/uL Hgb 11.7 L (13.0-17.0) g/dL Hct 36.5 L (39.6-50.0) % RDW 15.4 H (11.5-14.5) % Immature Gran # 0.07 H (0.00-0.04) X 10*3/uL Neutrophils # 9.88 H (1.80-7.70) X 10*3/uL Monocytes # 1.75 H (0.20-1.00) X 10*3/uL Eosinophils # 0.01 L (0.04-0.35) X 10*3/uL Glucose 143 H (70-110) mg/dL POC Glucose (mg/dL) 142 H (70-110) mg/dL Calcium 8.5 L (8.7-10.3) mg/dL 10/13/23 10/13/23 10/14/23 Range/Units 17:00 20:46 05:52 WBC (4.50-10.00) X 10*3/uL RBC (4.40-5.60) X 10*6/uL Hgb (13.0-17.0) g/dL Hct (39.6-50.0) % RDW (11.5-14.5) % Immature Gran # (0.00-0.04) X 10*3/uL Neutrophils # (1.80-7.70) X 10*3/uL Monocytes # (0.20-1.00) X 10*3/uL Eosinophils # (0.04-0.35) X 10*3/uL Glucose (70-110) mg/dL POC Glucose (mg/dL) 156 H 161 H 143 H (70-110) mg/dL Calcium (8.7-10.3) mg/dL Assessment and Plan Assessment: Postop day 2: [id number] decompression and fusion with L1 kyphoplasty and bilateral SI fusion 1. L4-S1 stenosis, severe 2. Grade 1 retrolisthesis of L5 on S1 3. Neurogenic claudication 4. Low back pain 5. Fall from stairs Plan: -Appreciate network pricing consultant and team management. -Activity: Ambulate QID, OOB all meals, up and about, limit lifting bending twisting to less than 5 lbs. Use walker or cane if needed for stability. -Daily PT/OT, increase ambulation strength and balance. -Brace when up and about, not needed in bed or chair -Pain control: Adequate at this time -Meds: reviewed -GI ppx: senna, Miralax -DC oscar when up and about, bedside commode if needed -DVT PPX: Heparin -Hygiene: Shower today. Maintain dressing clean and dry. Meticulous cleaning after BMs away from the incision site -Drains: Maintain for now. Continue to monitor and record output q shift. -Encourage IS 10x/hr -Dispo: Clinically pending, may benefit WILMER at discharge. *I reviewed and discussed this case with my attending Dr. Pandey, whom has reviewed this chart and films and is in agreement with assessment and plan of care as outlined above. I have personally seen and examined the patient, performed the documentation and the assessment and plan as written. Number of minutes spent on the visit: 20m.
[2023-10-14] MEDS: SYMBICORT 80-4.5 MCG INHALER INHALATION SCH ×2 (09:19→20:46)
[2023-10-14] MEDS: IPRATROPIUM 0.5 MG/2.5 ML NEBU INHALATION SCH ×4 (09:19→20:47)
[2023-10-14 11:12] LABS: Glucose,Whole Blood 194 mg/dL (70-110)
[2023-10-14] MEDS: HYDROcodone/APAP 10-325MG 1 EACH TAB PO PRN ×2 (11:14→18:36)
[2023-10-14] MEDS: CYCLOBENZAPRINE 5 MG TAB PO PRN ×2 (11:15→22:36)
--- NOTE | 2023-10-14 13:29 | P.PN ---
Subjective Progress Note Date: 10/14/23 (delayed charting seen at 0950) Patient is a 78 male with a history of sleep apnea with CPAP, COPD, diabetes mellitus type 2 [id number], hypertension, dyslipidemia, and multiple other comorbid conditions who underwent L1 kyphoplasty with L4 through pelvis decompression and fusion. Patient seen and examined at bedside. He reports significant back pain. He also has having some bloating feelings. He denies any nausea or vomiting. Vital signs reviewed General: Nontoxic, no distress, appears at stated age Cardiovascular: S1S2 reg, no murmur, positive posterior tibial pulse bilateral, Lungs: CTA bilateral, no rhonchi, no rales, no accessory muscle use Abdominal: Soft, nontender to palpation, no guarding, no appreciable organomegaly Ext: No gross muscle atrophy, no edema b/l lower extremities, no contractures Neuro: CN II-XI grossly intact, no focal neuro deficits Psych: Alert, oriented, appropriate affect Assessment/Plan: 78 year-old male status post L1 kyphoplasty with L4 through pelvis decompression and fusion - ortho note reviewed: encourage ambulation, maintain hemovac drain Obstructive sleep apnea -Patient has not brought in CPAP Diabetes mellitus type 2, [id number] -Start metformin 500 gm BID, continue with SSI -follow BS -Hemoglobin A1c 6.09 September 2023 Acute blood loss anemia, anticipated outcome of surgery -Repeat CBC in a.m. Hypertension, controlled - Patient had low BP evening of 10/13/23 requiring 500 cc bolus, hold coreg -Follow blood pressures Chronic: Dyslipidemia BPH COPD without exacerbation Neuropathy RLS Imaging: None new reviewed Data Review: Blood sugars reviewed and varied from 138-194 Thank you for allowing us to participate in the care of this pleasant patient. Do not hesitate to contact us with questions. Someone can be reached from the [facility] hospitalist group all hours of the day at [phone] or via [employer]. This dictation was prepared using [employer] voice recognition software. Though every attempt is made to correct errors during dictation some may still exist. Objective - Vital Signs Vital signs: Vital Signs Temp 98.3 F 10/14/23 07:45 Pulse 74 10/14/23 07:45 Resp 21 10/14/23 07:45 BP 109/71 10/14/23 07:45 Pulse Ox 92 L 10/14/23 09:20 FiO2 Intake & Output 10/13/23 10/14/23 10/14/23 18:59 06:59 18:59 Intake Total 400 Output Total 7480 604 523 Balance -840 -365 -864 Intake: Oral 400 Output: Drainage 140 180 60 Lower Back 140 180 60 Urine 1100 600 800 Other: Voiding Method Indwelling Catheter Indwelling Catheter Indwelling Catheter - Labs CBC & Chem 7: 10/13/23 05:05 10/13/23 05:05 Labs: Abnormal Lab Results - Last 24 Hours (Table) 10/13/23 10/13/23 10/14/23 Range/Units 17:00 20:46 05:52 POC Glucose (mg/dL) 156 H 161 H 143 H (70-110) mg/dL Hemoglobin A1c (<=6.0) % 10/14/23 10/14/23 Range/Units 06:00 11:11 POC Glucose (mg/dL) 194 H (70-110) mg/dL Hemoglobin A1c 6.6 H (<=6.0) %
[2023-10-14 16:02] LABS: Glucose,Whole Blood 276 mg/dL (70-110)
[2023-10-14] MEDS: metFORMIN 500 MG TAB PO SCH (17:26)
[2023-10-14 20:35] LABS: Glucose,Whole Blood 176 mg/dL (70-110)
[2023-10-14] MEDS: ATORVASTATIN 10 MG TAB PO SCH (22:36)
[2023-10-14] MEDS: LATANOPROST 0.005% OPHTH DROPS 2.5 ML BTL BOTH EYES SCH (22:59)
[2023-10-15] MEDS: ACETAMINOPHEN TAB 325 MG TAB PO SCH ×5 (02:27→21:59)
[2023-10-15 05:40] LABS: Glucose,Whole Blood 208 mg/dL (70-110)
[2023-10-15] MEDS: PANTOPRAZOLE 40 MG TABLET PO SCH (06:47)
[2023-10-15] MEDS: INSULIN ASPART (NovoLOG) 100 UNIT/ML VIAL SQ SCH ×4 (06:47→20:28)
[2023-10-15] MEDS: metFORMIN 500 MG TAB PO SCH ×2 (06:47→17:23)
[2023-10-15] MEDS: LACTATED RINGERS 1,000 ML IV SCH (06:48)
[2023-10-15 06:54] LABS: MCH 31.5 pg (25.0-35.0); MCHC 33.3 g/dL (31.0-37.0); MCV 94.8 fL (80.0-100.0); Mean Platelet Volume 8.6; Platelet Count 147 k/uL (150-450); RBC 3.27 m/uL (4.30-5.90); RDW 15.2 % (11.5-15.5); WBC 10.7 k/uL (3.8-10.6)
[2023-10-15 06:59] LABS: HGB 10.3 gm/dL (13.0-17.5)
[2023-10-15] MEDS: TAMSULOSIN 0.4 MG CAP.ER.24H PO SCH (08:03)
[2023-10-15] MEDS: FINASTERIDE 5 MG TAB PO SCH (08:03)
[2023-10-15] MEDS: SENNOSIDES-DOCUSATE SODIUM 1 EACH TAB PO SCH (08:03)
[2023-10-15] MEDS: MAGNESIUM HYDROXIDE 2,400 MG/30 ML CUP PO SCH (08:03)
[2023-10-15] MEDS: GABAPENTIN 300 MG CAP PO SCH ×3 (08:03→20:31)
[2023-10-15] MEDS ORDERED: CYCLOBENZAPRINE 5 MG TAB PO PRN (08:08)
[2023-10-15] MEDS ORDERED: HYDROcodone/APAP 5-325MG 1 EACH TAB PO SCH (08:15)
[2023-10-15] MEDS: SYMBICORT 80-4.5 MCG INHALER INHALATION SCH ×2 (08:34→19:48)
[2023-10-15] MEDS: IPRATROPIUM 0.5 MG/2.5 ML NEBU INHALATION SCH ×4 (08:35→19:49)
--- NOTE | 2023-10-15 09:10 | P.PN ---
Subjective Progress Note Date: 10/15/23 Principal diagnosis: 1. L4-S1 stenosis, severe 2. Grade 1 retrolisthesis of L5 on S1 3. Neurogenic claudication 4. Low back pain 5. Fall from stairs Patient seen and examined this morning. Patient is resting comfortably in bed on his right side. Surgical incision to the lumbar spine, edges are well approximated with lashonda intact. There are also 2 puncture sites located at the paralumbar region with lashonda intact. Hemovac drain was pulled accidentally during the night, sutures removed and dressing applied. Patient continues to report a moderate amount of lower back pain, medications have been modified. Continue to encourage patient to work with physical therapy. LSO brace is at bedside. Patient is cleared from orthopedic standpoint for discharge to subacute rehab when bed available. No acute concerns at this time. Objective - Vital Signs Vital signs: Vital Signs Temp 99.0 F 10/15/23 07:07 Pulse 78 10/15/23 07:07 Resp 16 10/15/23 07:07 BP 93/51 10/15/23 07:07 Pulse Ox 96 10/15/23 07:07 FiO2 Intake & Output 10/14/23 10/15/23 10/15/23 18:59 06:59 18:59 Output Total 2059 605 Balance -2059 - Output: Drainage 60 5 Lower Back 60 5 Urine 2000 600 Straight 600 Other: Voiding Method Indwelling Catheter Indwelling Catheter - Exam Physical Examination General: The patient is awake and alert, in no acute distress Skin: Skin is warm and dry with no obvious rashes or lesions. Surgical incision to the lumbar spine, edges are well approximated with lashonda intact. There are also 2 puncture sites located at the paralumbar region with lashonda intact. Eye: Pupils are equal, round and reactive to light, extra-ocular movements are intact; there is normal conjunctiva bilaterally. Neck: The neck is supple, there is no tenderness and ROM intact. Cardiovascular: There is a regular rate and rhythm. No murmur, rub or gallop is appreciated. Respiratory: Lungs are clear to auscultation, respirations are non-labored, breath sounds are equal. Gastrointestinal: Soft, non-distended, non-tender abdomen. Back: There is no tenderness to palpation in the midline, paralumbar, parathoracic or buttocks region. There is no obvious deformity . Musculoskeletal: ROM limited secondary to pain and stiffness from surgical procedure. Muscle strength in all major muscle groups of bilateral upper extremities 5/5, bilateral lower extremities 4/5. Neurological: CN 2-12 intact. There are no obvious motor or sensory deficits. Movement and coordination equal and intact. Sensory exam to light touch intact C5-T1 and intact from L2-S1. Reflexes 2/4 in bilateral upper and lower ex tremities. Negative Hoffmans, babinski, and clonus signs. Psychiatric: Cooperative, appropriate mood & affect, normal judgment. - Labs CBC & Chem 7: 10/15/23 05:30 10/13/23 05:05 Labs: Abnormal Lab Results - Last 24 Hours (Table) 10/14/23 10/14/23 10/14/23 Range/Units 06:00 11:11 16:00 WBC (3.8-10.6) k/uL RBC (4.30-5.90) m/uL Hgb (13.0-17.5) gm/dL Hct (39.0-53.0) % Plt Count (150-450) k/uL POC Glucose (mg/dL) 194 H 276 H (70-110) mg/dL Hemoglobin A1c 6.6 H (<=6.0) % 10/14/23 10/15/23 10/15/23 Range/Units 20:32 05:30 05:37 WBC 10.7 H (3.8-10.6) k/uL RBC 3.27 L (4.30-5.90) m/uL Hgb 10.3 L D (13.0-17.5) gm/dL Hct 31.0 L (39.0-53.0) % Plt Count 147 L (150-450) k/uL POC Glucose (mg/dL) 176 H 208 H (70-110) mg/dL Hemoglobin A1c (<=6.0) % Assessment and Plan Assessment: Postop day 3: [id number] decompression and fusion with L1 kyphoplasty and bilateral SI fusion 1. L4-S1 stenosis, severe 2. Grade 1 retrolisthesis of L5 on S1 3. Neurogenic claudication 4. Low back pain 5. Fall from stairs Plan: -Appreciate business analyst consultant and team management. -Activity: Ambulate QID, OOB all meals, up and about, limit lifting bending twisting to less than 5 lbs. Use walker or cane if needed for stability. -Daily PT/OT, increase ambulation strength and balance. -Brace when up and about, not needed in bed or chair -Pain control: Adequate at this time -Meds: reviewed -GI ppx: senna, Miralax -DVT PPX: Heparin -Hygiene: Shower today. Maintain dressing clean and dry. Meticulous cleaning after BMs away from the incision site -Encourage IS 10x/hr -Dispo: Patient is cleared from orthopedic standpoint for discharge when bed available. *I reviewed and discussed this case with my attending Dr. Pandey, whom has reviewed this chart and films and is in agreement with assessment and plan of care as outlined above. I have personally seen and examined the patient, performed the documentation and the assessment and plan as written. Number of minutes spent on the visit: 20m.
[2023-10-15] MEDS: HYDROcodone/APAP 10-325MG 1 EACH TAB PO SCH ×5 (09:36→23:35)
[2023-10-15] MEDS ORDERED: bisacodyL 10 MG SUPP RECTAL STA (09:46)
--- NOTE | 2023-10-15 11:27 | P.PN ---
Subjective Progress Note Date: 10/15/23 Patient is a 78 male with a history of sleep apnea with CPAP, COPD, diabetes mellitus type 2 [id number], hypertension, dyslipidemia, and multiple other comorbid conditions who underwent L1 kyphoplasty with L4 through pelvis decompression and fusion. Patient seen and examined at bedside. Continues to have some pain. He has not yet had a bowel movement. He has required straight cath x 2 for urinary retention. He denies any chest pain or shortness of breath. Vital signs reviewed General: Nontoxic, no distress, appears at stated age Cardiovascular: S1S2 reg, no murmur, positive posterior tibial pulse bilateral, Lungs: CTA bilateral, no rhonchi, no rales, no accessory muscle use Abdominal: Soft, nontender to palpation, no guarding, no appreciable organomegaly Ext: No gross muscle atrophy, no edema b/l lower extremities, no contractures Neuro: CN II-XI grossly intact, no focal neuro deficits Psych: Alert, oriented, appropriate affect Assessment/Plan: 78 year-old male status post L1 kyphoplasty with L4 through pelvis decompression and fusion - ortho note reviewed: encourage ambulation, Hemovac inadvertently removed by patient last evening and sutures removed today. Obstructive sleep apnea -has CPAP at bedside to use with sleep Diabetes mellitus type 2, [id number] -Continue metformin 500 gm BID, continue with SSI -follow BS -Hemoglobin A1c 6.09 September 2023 Acute blood loss anemia, anticipated outcome of surgery Thrombocytopenia -Repeat CBC in a.m. Hypertension, controlled - Patient had low BP evening of 10/13/23 requiring 500 cc bolus, hold coreg -Follow blood pressures Chronic: Dyslipidemia BPH COPD without exacerbation Neuropathy RLS Start Lovenox for DVT prophylaxis Imaging: None new reviewed Data Review: Labs reviewed from today include CBC which is remarkable for white blood cell count 10.7, hemoglobin 10.3, platelets 147, glucose 208 Thank you for allowing us to participate in the care of this pleasant patient. Do not hesitate to contact us with questions. Someone can be reached from the [facility] hospitalist group all hours of the day at [phone] or via [employer]. This dictation was prepared using [employer] voice recognition software. Though every attempt is made to correct errors during dictation some may still exist. Objective - Vital Signs Vital signs: Vital Signs Temp 99.0 F 10/15/23 07:07 Pulse 78 10/15/23 07:07 Resp 16 10/15/23 08:00 BP 93/51 10/15/23 07:07 Pulse Ox 96 10/15/23 07:07 FiO2 Intake & Output 10/14/23 10/15/23 10/15/23 18:59 06:59 18:59 Output Total 0 605 0 Balance -2059 -605 0 Output: Drainage 60 5 Lower Back 60 5 Urine 2000 600 0 Straight 600 Post Void Residual 0 Other: Voiding Method Indwelling Catheter Indwelling Catheter - Labs CBC & Chem 7: 10/15/23 05:30 10/13/23 05:05 Labs: Abnormal Lab Results - Last 24 Hours (Table) 10/14/23 10/14/23 10/15/23 Range/Units 16:00 20:32 05:30 WBC 10.7 H (3.8-10.6) k/uL RBC 3.27 L (4.30-5.90) m/uL Hgb 10.3 L D (13.0-17.5) gm/dL Hct 31.0 L (39.0-53.0) % Plt Count 147 L (150-450) k/uL POC Glucose (mg/dL) 276 H 176 H (70-110) mg/dL 10/15/23 Range/Units 05:37 WBC (3.8-10.6) k/uL RBC (4.30-5.90) m/uL Hgb (13.0-17.5) gm/dL Hct (39.0-53.0) % Plt Count (150-450) k/uL POC Glucose (mg/dL) 208 H (70-110) mg/dL
[2023-10-15 11:48] LABS: Glucose,Whole Blood 170 mg/dL (70-110)
[2023-10-15] MEDS: ENOXAPARIN 40 MG/0.4 ML SYRINGE SQ SCH (12:51)
[2023-10-15 16:55] LABS: Glucose,Whole Blood 150 mg/dL (70-110)
[2023-10-15 20:22] LABS: Glucose,Whole Blood 146 mg/dL (70-110)
[2023-10-15] MEDS: ATORVASTATIN 10 MG TAB PO SCH (20:31)
[2023-10-15] MEDS: LATANOPROST 0.005% OPHTH DROPS 2.5 ML BTL BOTH EYES SCH (20:31)
[2023-10-16] MEDS: HYDROcodone/APAP 10-325MG 1 EACH TAB PO SCH ×4 (03:56→16:46)
[2023-10-16] MEDS: ACETAMINOPHEN TAB 325 MG TAB PO SCH ×3 (03:58→16:49)
[2023-10-16] MEDS: LACTATED RINGERS 1,000 ML IV SCH (05:11)
[2023-10-16 06:20] LABS: Glucose,Whole Blood 144 mg/dL (70-110)
[2023-10-16] MEDS: INSULIN ASPART (NovoLOG) 100 UNIT/ML VIAL SQ SCH ×3 (06:24→16:48)
[2023-10-16 08:14] VITALS: BP 113/71; TEMP 98.9
[2023-10-16] MEDS ORDERED: polyethylene glycoL 3350 17 GM POWD.PACK PO SCH (09:00)
[2023-10-16] MEDS: SYMBICORT 80-4.5 MCG INHALER INHALATION SCH (09:04)
[2023-10-16] MEDS: IPRATROPIUM 0.5 MG/2.5 ML NEBU INHALATION SCH ×3 (09:04→16:23)
--- NOTE | 2023-10-16 09:09 | P.PN ---
Subjective Progress Note Date: 10/16/23 Principal diagnosis: 1. L4-S1 stenosis, severe 2. Grade 1 retrolisthesis of L5 on S1 3. Neurogenic claudication 4. Low back pain 5. Fall from stairs Patient seen and examined this morning. Patient is resting comfortable in bed with CPAP on. Patient does report that his pain is better managed at this time. Cedeno catheter had been placed early this morning due to urinary retention. Patient will need to follow up with urology outpatient. Patient reports that he is passing gas but has not had a bowel movement at this time, medications have been adjusted. Encouraged patient to continue to work with physical therapy and to be up in chair for all meals. LSO brace is present at bedside. Patient denies any numbness or tingling to the bilateral lower extremities. Patient remains afebrile, denies any shortness of breath/chest pain. Objective - Vital Signs Vital signs: Vital Signs Temp 98.0 F 10/16/23 01:00 Pulse 94 10/16/23 01:00 Resp 18 10/16/23 01:00 BP 108/54 10/16/23 01:00 Pulse Ox 97 10/16/23 01:00 FiO2 Intake & Output 10/15/23 10/16/23 10/16/23 18:59 06:59 18:59 Output Total 400 700 Balance -400 -700 Output: Urine 400 700 Straight 400 Post Void Residual 0 Other: Voiding Method Indwelling Catheter # Voids 1 - Exam Physical Examination General: The patient is awake and alert, in no acute distress Skin: Skin is warm and dry with no obvious rashes or lesions. Surgical incision to the lumbar spine, edges are well approximated with lashonda intact. There are also 2 puncture sites located at the paralumbar region with lashonda intact. Dressings are clean dry and intact Eye: Pupils are equal, round and reactive to light, extra-ocular movements are intact; there is normal conjunctiva bilaterally. Neck: The neck is supple, there is no tenderness and ROM intact. Cardiovascular: There is a regular rate and rhythm. No murmur, rub or gallop is appreciated. Respiratory: Lungs are clear to auscultation, respirations are non-labored, breath sounds are equal. Gastrointestinal: Soft, non-distended, non-tender abdomen. Back: There is no tenderness to palpation in the midline, paralumbar, parathoracic or buttocks region. There is no obvious deformity . Musculoskeletal: ROM limited secondary to pain and stiffness from surgical procedure. Muscle strength in all major muscle groups of bilateral upper extremities 5/5, bilateral lower extremities 4/5. Neurological: CN 2-12 intact. There are no obvious motor or sensory deficits. Movement and coordination equal and intact. Sensory exam to light touch intact C5-T1 and intact from L2-S1. Reflexes 2/4 in bilateral upper and lower extremities. Negative Hoffmans, babinski, and clonus signs. Psychiatric: Cooperative, appropriate mood & affect, normal judgment. - Labs CBC & Chem 7: 10/15/23 05:30 10/13/23 05:05 Labs: Abnormal Lab Results - Last 24 Hours (Table) 10/15/23 10/15/23 10/15/23 Range/Units 11:47 16:54 20:20 POC Glucose (mg/dL) 170 H 150 H 146 H (70-110) mg/dL 10/16/23 Range/Units 06:18 POC Glucose (mg/dL) 144 H (70-110) mg/dL Assessment and Plan Assessment: Postop day 4: [id number] decompression and fusion with L1 kyphoplasty and bilateral SI fusion 1. L4-S1 stenosis, severe 2. Grade 1 retrolisthesis of L5 on S1 3. Neurogenic claudication 4. Low back pain 5. Fall from stairs Plan: -Appreciate web consultant and team management. -Activity: Ambulate QID, OOB all meals, up and about, limit lifting bending twisting to less than 5 lbs. Use walker or cane if needed for stability. -Daily PT/OT, increase ambulation strength and balance. -Brace when up and about, not needed in bed or chair -Pain control: Adequate at this time -Meds: reviewed -GI ppx: senna, Miralax -DVT PPX: Heparin -Maintain Cedeno catheter, patient to follow up outpatient with urology -Hygiene: Shower today. Maintain dressing clean and dry. Meticulous cleaning after BMs away from the incision site -Encourage IS 10x/hr -Dispo: Patient is cleared from orthopedic standpoint for discharge when bed available. *I reviewed and discussed this case with my attending Dr. Pandey, whom has reviewed this chart and films and is in agreement with assessment and plan of care as outlined above. I have personally seen and examined the patient, performed the documentation and the assessment and plan as written. Number of minutes spent on the visit: 20m.
[2023-10-16] MEDS: GABAPENTIN 300 MG CAP PO SCH ×2 (09:26→16:46)
[2023-10-16] MEDS: MAGNESIUM HYDROXIDE 2,400 MG/30 ML CUP PO SCH (09:26)
[2023-10-16] MEDS: metFORMIN 500 MG TAB PO SCH ×2 (09:26→16:46)
[2023-10-16] MEDS: TAMSULOSIN 0.4 MG CAP.ER.24H PO SCH (09:26)
[2023-10-16] MEDS: PANTOPRAZOLE 40 MG TABLET PO SCH (09:26)
[2023-10-16] MEDS: ENOXAPARIN 40 MG/0.4 ML SYRINGE SQ SCH (09:26)
[2023-10-16] MEDS: SENNOSIDES-DOCUSATE SODIUM 1 EACH TAB PO SCH (09:27)
[2023-10-16] MEDS: FINASTERIDE 5 MG TAB PO SCH (09:27)
[2023-10-16 09:59] LABS: HCT 30.3 % (39.0-53.0); HGB 9.7 gm/dL (13.0-17.5); Hypochromasia Slight; MCH 31.2 pg (25.0-35.0); MCHC 32.1 g/dL (31.0-37.0); MCV 97.2 fL (80.0-100.0); Mean Platelet Volume 7.9; Platelet Count 170 k/uL (150-450); RBC 3.12 m/uL (4.30-5.90); WBC 8.5 k/uL (3.8-10.6)
[2023-10-16 11:38] LABS: Glucose,Whole Blood 164 mg/dL (70-110)
--- NOTE | 2023-10-16 12:42 | P.DS ---
Providers Date of admission: 10/12/23 05:48 Expected date of discharge: 10/16/23 Attending physician: Herb Pandey DO Consults: 10/12/23 12:29 Consult Physician Routine Consulting Provider: Yoav Miranda Consult Reason/Comments: medical managament s/p L4-pelvis decompr fusion Do you want consulting provider notified?: Yes Primary care physician: [facility] Hospital Course: Hospital Course: The patient was evaluated preoperatively and found to have the diagnosis of lumbar spondylosis with radiculopathy. They underwent appropriate preoperative care and were willing to undergo the intended procedure. They underwent a successful [id number] decompression and fusion with bilateral SI joint fusion and L1 kyphoplasty, were recovered appropriately and sent to the floor. While on the floor they worked with physical therapy, occupational therapy and nursing to enhance their recovery experience. Their pain was well controlled through their stay and they were started on appropriate medications, DVT ppx modalities, activity and dietary needs. Daily labs were monitored closely, and transfusions were only used when necessary. Medicine as well as other consulting services have made their input and have helped with our team approach and multidisciplinary care. PT milestones have been met and passed and they have made the recommendation of subacute rehab for this patient and treating providers agree with this care path. The patient will be discharged home with appropriate medications, instructions and follow-up information and in stable condition. Patient Condition at Discharge: Good Plan - Discharge Summary Discharge Rx Participant: Yes New Discharge Prescriptions: New Gabapentin 300 mg PO TID #90 cap Sennosides/Docusate Sodium [Senna Plus 8.6-50 mg Softgel] 1 each PO DAILY PRN #20 capsule PRN Reason: Constipation cefaDROXiL [Duricef] 500 mg PO Q12HR #10 cap Cyclobenzaprine [Flexeril] 5 mg PO TID PRN #30 tablet PRN Reason: Muscle Spasm HYDROcodone/APAP 10-325MG [[place] 10-325] 1 tab PO Q4-6H PRN #42 tab PRN Reason: Pain Continue Tamsulosin [Flomax] 0.8 mg PO DAILY Finasteride [Proscar] 5 mg PO DAILY Ketoconazole [Ketoconazole 2% Shampoo] 1 applic TOPICAL DAILY PRN PRN Reason: ITCHY/DRY SCALP Zinc Gluconate [Zinc] 50 mg PO DAILY Omeprazole 20 mg PO DAILY Tiotropium 2.5 Mcg/Puff [Spiriva Respimat 2.5 Mcg] 2 puff INHALATION RT-DAILY Latanoprost [Xalatan 0.005%] 1 drop BOTH EYES HS Fluticasone Propion/Salmeterol [Fluticasone-Salmeterol 250-50] 1 puff INHALATION RT-BID Albuterol Inhaler [Ventolin Hfa Inhaler] 1 puff INHALATION RT-Q4H PRN PRN Reason: Shortness Of Breath rOPINIRole HCL [Requip] 3 mg PO HS Clotrimazole Cream [Lotrimin Cream] 1 applic TOPICAL BID PRN PRN Reason: FUNGAL INFECTION Carbamide Peroxide [Debrox Otic] 5 - 10 drops BOTH EARS BID PRN PRN Reason: WAX BUILDUP metFORMIN HCL [Glucophage] 850 mg PO DAILY Simvastatin [Zocor] 20 mg PO HS Aspirin EC [Ecotrin Low Dose] 81 mg PO DAILY Discontinued Sildenafil Citrate [Viagra] 100 mg PO DAILY PRN PRN Reason: E.D. traMADol HCl [Ultram] 50 mg PO Q6H PRN PRN Reason: Pain Lidocaine 5% Patch [Lidoderm 5% Patch] 1 patch TOPICAL DAILY No Action carvediloL [Coreg*] 25 mg PO BID-W/MEALS tab Discharge Medication List Albuterol Inhaler [Ventolin Hfa Inhaler] 1 puff INHALATION RT-Q4H PRN 09/23/21 [History] Fluticasone Propion/Salmeterol [Fluticasone-Salmeterol 250-50] 1 puff INHALATION RT-BID 09/23/21 [History] Latanoprost [Xalatan 0.005%] 1 drop BOTH EYES HS 09/23/21 [History] Tamsulosin [Flomax] 0.8 mg PO DAILY 09/23/21 [History] Tiotropium 2.5 Mcg/Puff [Spiriva Respimat 2.5 Mcg] 2 puff INHALATION RT-DAILY 09/23/21 [History] carvediloL [Coreg*] 25 mg PO BID-W/MEALS tab 10/14/21 [Rx] Aspirin EC [Ecotrin Low Dose] 81 mg PO DAILY 11/04/22 [History] Carbamide Peroxide [Debrox Otic] 5 - 10 drops BOTH EARS BID PRN 11/04/22 [History] Clotrimazole Cream [Lotrimin Cream] 1 applic TOPICAL BID PRN 11/04/22 [History] Finasteride [Proscar] 5 mg PO DAILY 11/04/22 [History] Ketoconazole [Ketoconazole 2% Shampoo] 1 applic TOPICAL DAILY PRN 11/04/22 [History] Omeprazole 20 mg PO DAILY 11/04/22 [History] Simvastatin [Zocor] 20 mg PO HS 11/04/22 [History] Zinc Gluconate [Zinc] 50 mg PO DAILY 11/04/22 [History] metFORMIN HCL [Glucophage] 850 mg PO DAILY 11/04/22 [History] rOPINIRole HCL [Requip] 3 mg PO HS 11/04/22 [History] Cyclobenzaprine [Flexeril] 5 mg PO TID PRN #30 tablet 10/15/23 [Rx] Gabapentin 300 mg PO TID #90 cap 10/15/23 [Rx] HYDROcodone/APAP 10-325MG [[place] 10-325] 1 tab PO Q4-6H PRN #42 tab 10/15/23 [Rx] Sennosides/Docusate Sodium [Senna Plus 8.6-50 mg Softgel] 1 each PO DAILY PRN #20 capsule 10/15/23 [Rx] cefaDROXiL [Duricef] 500 mg PO Q12HR #10 cap 10/15/23 [Rx] Follow up Appointment(s)/Referral(s): [facility], [NON-STAFF] - As Needed Herb Pandey DO [Doctor of Osteopathic Medicine] - 10/28/23 1:30 pm Liban Angela MD [STAFF PHYSICIAN] - 1 Week (Urinary retention) Activity/Diet/Wound Care/Special Instructions: Spine Discharge and Recovery Instructions Date of Surgery: 10/12/2023 Diagnosis: Lumbar spondylosis with radiculopathy Procedure: S1qdaufv decompression and fusion with L1 kyphoplasty and bilateral SI joint fusion Medications: See medication list All medication refills should be obtained through your primary care doctor or your clinic spine surgeon. Please discuss prescription refills at your follow up appointment. Do not call the hospital for medication refills. Activity: Encourage ambulation with assist of walker, Up and about 6-8x daily PT/OT daily work on balance, strength and mobility Up in chair with all meals Shower daily Brace: Use brace when up and about, do not wear in bed or shower Dressing: Leave your dressing in place for a total of 3 days post operatively. Then you may remove your dressing and leave open to air. Keep the area clean and if not able to keep area clean, then cover with sterile gauze and tape. Showering: You may shower 3 days after your procedure allowing soap and water to run over incision. Do not scrub. Do not soak. Blot dry. Follow up: Please confirm a follow up appointment with your surgeon 2 weeks post operatively. Please make an appointment to follow up with your PCP in 1-2 weeks after surgery for evaluation 3 phase, 3-week plan POST OP WEEKS 1-3 1. Lifting/carrying/pushing/pulling limited to less than 5 pounds. 2. Do not sit for longer than 15 minutes at one time. Get up and walk around. Prolonged sitting is NOT advised. If you lay down, see if you can tolerate laying down on you front (belly side) 3. Walk for periods of 15 minutes = 1 mile but no longer; do it multiple times times each day. 4. Ice your low back after activity. POST OP WEEKS 3-6 1. Lifting limited to less than 20 pounds. 2. Do not sit for longer than 30 minutes at a time. Frequently change positions. Use a sit-to stand workstation or take frequent breaks from sitting if you have returned to work. 3. Walk for 30 minutes each day. If possible, do these three or more times a day POST OP WEEKS 6+ At your 6-week appointment we will give you a physical therapy referral to focus on a core stabilization and strengthening program. You should also work on leg & buttock strengthening, hamstring & quadriceps stretching, and continue a low impact aerobic activity program such as swimming, walking, or riding a stationary bicycle. During the initial 6 weeks after your surgery, you are at the highest risk of re-injuring your spine. You should generally avoid BLTs (bending, lifting and twisting combination motions) and follow the above guidelines to reduce the chance of reinjury. You can anticipate post op appointments in our office at approximately 3 weeks and 6 weeks after your surgery. INCISION CARE: If your incision is not draining you do NOT need to cover it with a dressing. Keep your incision clean, dry and intact. In most cases, we apply skin glue, lashonda or sutures to the incision at the time of surgery. This will be like a crust or have the appearance of a scab and will fall off in time on its own. The stitches or lashonda need to be removed at 3 weeks post op appointment. You may begin to shower 3 days after surgery (this allows the glue to adkins well). However, please avoid scrubbing the incision site or peeling off any of the skin glue. This will ensure optimal healing of your incision. Also, during this time avoid soaking the incision area in water - this includes swimming pools, hot tubs or baths. No ointments, lotions or oils on the incision until your surgeon allows. Leave lashonda, sutures or glue in place. Neurological dysfunction that comes on suddenly can also be a sign of a stroke. Below some common symptoms of a stroke are listed: B - balance difficulty such as sudden onset walking or leaning to one side - NEW E - eye problem such as sudden double vision or trouble seeing on one side - NEW F - Facial weakness or numbness on one side - NEW A - Arm or leg weakness or numbness on one side - NEW S - Slurred speech or difficulty with word finding - NEW T - Time is BRAIN! Call 911 as soon as you recognize these symptoms Diet: Consume a regular diet rich in vegetables and lean protein such as chicken or fish. You should consume in a ratio of approximately 20% fats|40% carbohydrates|40%protein. Vegetables, sweet potatoes, brown rice or quinoa are examples of good carbohydrates. Chips, white bread, cookies and sweets/sugar are examples of bad carbohydrates. Limit your bad carbs, go wild with good carbs. "Life's Simple 7" Guidelines as per [place] [employer] These will help you reclaim your life after surgery and molder helper in your recovery, keeping in mind your restrictions. (1) Get Active. Physical activity can help people lose weight, control high blood pressure and cholesterol, feel emotionally better, and sleep better. (2) Control Cholesterol. Avoid a diet high in saturated fat, trans fat, & cholesterol. Limit whole milk & cream, ice cream, butter, egg yolks, processed meats (like sausage and hot dogs), and fatty meats. Choose healthy foods that are low in saturated fat, trans fat and cholesterol which include: Fruits and vegetables, fiber rich grain products (like whole grain pasta and brown rice), lean meat such as chicken, fish, nuts, seeds, and legumes. (3) Eat Better. Eat small portions. Shop at the grocery with a list and do n ot stray from it. Tips for a healthy diet include: Limit sodium intake to less than 1500mg daily, avoid prepackaged, processed, and fast foods, choose a diet rich in fruits, vegetables, and whole grain, high fiber foods, and limit saturated & cholesterol in your diet. (4) Manage Blood Pressure. If you have high blood pressure, you should have a cuff at home so that you can check your blood pressure regularly. Be sure you have a good cuff. An arm one is generally better than a wrist one. Bring the cuff to a doctor's appointment to validate that the measurements that your cuff are taking are accurate. Take your blood pressure twice daily when you are sitting down and relaxing. Record the numbers in a log and bring this log with you to your doctors' appointments. (5) Lose Weight if your BMI is above 25. A healthy BMI is between 19-25. To calculate Your BMI, you may use a Standard BMI Calculator on the NIH BMI website: <www.nhlbi.nih.gov/guidelines/obesity/BMI/bmicalc.htm>. Weigh oneself daily. If you are overweight, set a goal to lose weight. A pound a week loss if needed is a good target. (6) Reduce Blood Sugar. Limit foods and liquids with "added sugars." (Added sugars include sucrose, fructose, glucose, maltose, dextrose, high fructose corn syrup, corn syrup, concentrated fruit juice and honey). (7) Stop Smoking. If you smoke, quitting smoking is one of the best things that you can do for your health. Smoking increases your risk of heart attack, stroke, and peripheral vascular disease, which is a build-up of plaque in your arteries. Please discard all the cigarettes and lighters in your house. Have a plan for what you will do when you have the urge to smoke. Direct and second- hand smoke shortens your life as well as the lives of your family, friends and others around you. For your health and the health of those around you, please consider quitting! Proper Bending Body Mechanics: Maintain a wide stance with one foot slightly in front of the other. Keep your back straight. Bend utilizing the strength in your hips and knees. Do not bend at the waist. Maintain the lifted object at your waist-level close to your body. Avoid lifting weight that causes immediately pain or pain anywhere in the body afterwards. Smoking/Nicotine If there was ever one thing that you could do to increase your overall health, decrease your risk of cardiovascular problems by about 39% the second you make the choice, it is to STOP SMOKING. Your body's most instant gratification is the second you stop smoking. We have all heard the studies, read the articles but it is true, smoking is extremely bad for your overall health, and moreover it is detrimental to your bone health. Nicotine, IN ANY FORM, kills bone cells, prevents your body from healing fractures, and significantly prolongs healing after surgery. In spine surgery specifically, it increases your risk of not healing your bones to create a fusion and increases your risk of having a revision surgery due to this up to 60%. I know it is hard. I know it feels impossible. But there are ways. Take control of your life. We are here to help you through it. And when you are ready, ask us and we can direct you to help if you desire. Use the START Plan to Quit Smoking (please visit the Helpguide.org website listed below for more information): S = Set a quit date. Choose a date within the next 2 weeks, so you have enough time to prepare with out losing your motivation to quit. If you mainly smoke at work, quit on the weekend, so you have a few days to adjust to the change. T = Tell family, friends, and co-workers that you plan to quit. Let your friends and family in on your plan to quit smoking and tell them you need their support and encouragement to stop. Look for a quit sourav who wants to stop smoking as well. You can help each other get through the rough times. A = Anticipate and plan for the challenges you'll face while quitting. Most people who begin smoking again do so within the first 3 months. You can help yourself make it through by preparing ahead for common challenges, such as nicotine withdrawal and cigarette cravings. R = Remove cigarettes and other tobacco products from your home, car, and work. Throw away all your cigarettes (no emergency pack!), lighters, ashtrays, and matches. Wash your clothes and freshen up anything that smells like smoke. Shampoo your car, clean your drapes and carpet, and steam your furniture. T = Talk to your doctor about getting help to quit. Your doctor can prescribe medication to help with withdrawal and suggest other alternatives. If you can't see a doctor, you can get many products over the counter at your local pharmacy or grocery store, including the nicotine patch, nicotine lozenges, and nicotine gum. Resources for Quitting Smoking: < https://www.[place].gov/documents/[facility]/Quit_Tobacco_Resources_for_patients_3134 80_7.pdf> Supplementation: Take recommended dosages of Vitamin D and Calcium to help fortify your bones and help them to heal. See your health maintenance packet for dosages and recommended levels. DVT/VTE prophylaxis: You will be given compression stockings from the hospital. Wear these daily for the first two weeks after surgery. You may take them off at night. You may be prescribed a medication to help thin your blood. Take this as directed. If you are not prescribed this medication, early and frequent ambulation has been shown to be the best prophylaxis to deep vein thrombosis and sequelae related to this event. Discharge Disposition: TRANSFER TO SNF/ECF
--- NOTE | 2023-10-16 14:06 | P.PN ---
Subjective Progress Note Date: 10/16/23 (delayed charting seen at 0830) Patient is a 78 male with a history of sleep apnea with CPAP, COPD, diabetes mellitus type 2 woy-jibkzlb-zentdtabe, hypertension, dyslipidemia, and multiple other comorbid conditions who underwent L1 kyphoplasty with L4 through pelvis decompression and fusion. Patient seen and examined at bedside. He continues to have back pain. He still did not have a bowel movement yesterday. We discussed that his urinary retention likely is being worsened by his constipation. He is going to take MiraLAX today. Vital signs reviewed General: Nontoxic, no distress, appears at stated age Cardiovascular: S1S2 reg, no murmur, positive posterior tibial pulse bilateral, Lungs: CTA bilateral, no rhonchi, no rales, no accessory muscle use Abdominal: Soft, nontender to palpation, no guarding, no appreciable organomegaly Ext: No gross muscle atrophy, no edema b/l lower extremities, no contractures Neuro: CN II-XI grossly intact, no focal neuro deficits Psych: Alert, oriented, appropriate affect Assessment/Plan: 78 year-old male status post L1 kyphoplasty with L4 through pelvis decompression and fusion - ortho note reviewed: encourage ambulation, Hemovac inadvertently removed by patient last evening and sutures removed today. Urinary reention - continue oscar, had to be replaced-- D/C with oscar - follow-up with urology after discharge Obstructive sleep apnea -has CPAP at bedside to use with sleep Constipation - refused dulcolax yesterday, given miralax today Diabetes mellitus type 2, kgn-misbqrc-lafiopndm -Continue metformin 500 gm BID, continue with SSI -follow BS -Hemoglobin A1c 6.09 September 2023 Acute blood loss anemia, anticipated outcome of surgery Thrombocytopenia - repeat CBC in 3 days Hypertension, controlled - patient still with low BP, D/C coreg on discharge. -Follow blood pressures Chronic: Dyslipidemia BPH COPD without exacerbation Neuropathy RLS Lovenox for DVT prophylaxis Imaging: None new reviewed Data Review: Labs reviewed from today include CBC which is remarkable for hemoglobin 9.7. Sugars reviewed with blood sugar max of 164. Thank you for allowing us to participate in the care of this pleasant patient. Do not hesitate to contact us with questions. Someone can be reached from the [facility] hospitalist group all hours of the day at [phone] or via [employer] This dictation was prepared using dragon medical voice recognition software. Though every attempt is made to correct errors during dictation some may still exist. Objective - Vital Signs Vital signs: Vital Signs Temp 98.9 F 10/16/23 07:06 Pulse 95 10/16/23 07:06 Resp 16 10/16/23 07:06 BP 113/71 10/16/23 07:06 Pulse Ox 97 10/16/23 01:00 FiO2 Intake & Output 10/15/23 10/16/23 10/16/23 18:59 06:59 18:59 Output Total 400 700 Balance -400 -700 Output: Urine 400 700 Straight 400 Post Void Residual 0 Other: Voiding Method Indwelling Catheter Indwelling Catheter # Voids 1 - Labs CBC & Chem 7: 10/16/23 09:36 10/13/23 05:05 Labs: Abnormal Lab Results - Last 24 Hours (Table) 10/15/23 10/15/23 10/16/23 Range/Units 16:54 20:20 06:18 RBC (4.30-5.90) m/uL Hgb (13.0-17.5) gm/dL Hct (39.0-53.0) % POC Glucose (mg/dL) 150 H 146 H 144 H (70-110) mg/dL 10/16/23 10/16/23 Range/Units 09:36 11:37 RBC 3.12 L (4.30-5.90) m/uL Hgb 9.7 L (13.0-17.5) gm/dL Hct 30.3 L (39.0-53.0) % POC Glucose (mg/dL) 164 H (70-110) mg/dL
[2023-10-16 15:53] VITALS: PULSE 94; RESP 18
[2023-10-16 16:34] LABS: Glucose,Whole Blood 166 mg/dL (70-110)
--- NOTE | 2023-10-19 12:02 | CDI ---
Documentation Clarification Form Date: 10/19/2023 11:49:01 AM From: Steffanie Alfred Phone: Admit Date: 10/12/2023 05:48:00 AM Patient Name: Camden Harden Visit Number: [id number] Discharge Date: 10/16/2023 05:18:00 PM ATTENTION: The Clinical Documentation Specialists (CDI) and [facility] Coding Staff appreciate your assistance in clarifying documentation. Please respond to the clarification below the line at the bottom and electronically sign. The CDI & [facility] Coding staff will review the response and follow-up if needed. Please note: Queries are made part of the Legal Health Record. If you have any questions, please contact the author of this message via ITS. Dr. Fadia Borges Your patient is receiving the following: insulin sliding scale per Progress Notes. Please clarify what condition/diagnosis is being treated. History/Risk Factors: 78yo M, L4-S1 spondylosiswith stenosis s/p [id number] L4- S1 decompressionandfusion, COPD,NIDDMII w neuropathy & retinopathy, HTN, HLD Clinical indicators: Blood sugars 138-194 A1C 6.09 September 2023 Treatment: Tight blood sugar controlpost op. Hold oralhypoglycemicagents. Insulin sliding scale What diagnosis are you treating with insulin? [ ] Diabetes Type 2 with hyperglycemia [ ] No additional diagnosis [ X] Other, please specify Diabetes, insulin requiring [ ] Unable to determine (Template Last Reviewed: November 2020) MTDD
== END 2023-10-16 17:18 | DRG 454 ==
LOC: 2ORMAIN 05:48 → 4SSUR 16:35
PROVIDERS: ADMIT Orthopaedic Surgery; ATTEND Orthopaedic Surgery
PROC: 0SG0071 Fusion of Lumbar Vertebral Joint with Autologous Tissue Substitute, Posterior Approach, Posterior Column, Open Approach (ICD-10-PCS; 2023-10-12)
PROC: 01NB0ZZ Release Lumbar Nerve, Open Approach (ICD-10-PCS; 2023-10-12)
PROC: 01NR0ZZ Release Sacral Nerve, Open Approach (ICD-10-PCS; 2023-10-12)
PROC: 00NW0ZZ Release Cervical Spinal Cord, Open Approach (ICD-10-PCS; 2023-10-12)
PROC: 00NX0ZZ Release Thoracic Spinal Cord, Open Approach (ICD-10-PCS; 2023-10-12)
PROC: 0SG30AJ Fusion of Lumbosacral Joint with Interbody Fusion Device, Posterior Approach, Anterior Column, Open Approach (ICD-10-PCS; 2023-10-12)
PROC: 0SG3071 Fusion of Lumbosacral Joint with Autologous Tissue Substitute, Posterior Approach, Posterior Column, Open Approach (ICD-10-PCS; 2023-10-12)
PROC: 0ST20ZZ Resection of Lumbar Vertebral Disc, Open Approach (ICD-10-PCS; 2023-10-12)
PROC: 0ST40ZZ Resection of Lumbosacral Disc, Open Approach (ICD-10-PCS; 2023-10-12)
PROC: 0SG704Z Fusion of Right Sacroiliac Joint with Internal Fixation Device, Open Approach (ICD-10-PCS; 2023-10-12)
PROC: 0SG807Z Fusion of Left Sacroiliac Joint with Autologous Tissue Substitute, Open Approach (ICD-10-PCS; 2023-10-12)
PROC: 0SG00A0 Fusion of Lumbar Vertebral Joint with Interbody Fusion Device, Anterior Approach, Anterior Column, Open Approach (ICD-10-PCS; 2023-10-12)
PROC: 0SG30A0 Fusion of Lumbosacral Joint with Interbody Fusion Device, Anterior Approach, Anterior Column, Open Approach (ICD-10-PCS; 2023-10-12)
PROC: 0QS03ZZ Reposition Lumbar Vertebra, Percutaneous Approach (ICD-10-PCS; 2023-10-12)
PROC: 0QU03JZ Supplement Lumbar Vertebra with Synthetic Substitute, Percutaneous Approach (ICD-10-PCS; 2023-10-12)
PROC: 8E0WXBZ Computer Assisted Procedure of Trunk Region (ICD-10-PCS; 2023-10-12)
PROC: 0SG00AJ Fusion of Lumbar Vertebral Joint with Interbody Fusion Device, Posterior Approach, Anterior Column, Open Approach (ICD-10-PCS; principal; 2023-10-12 07:30)
DX: M46.1 Sacroiliitis, not elsewhere classified (principal); D62 Acute posthemorrhagic anemia; M47.14 Other spondylosis with myelopathy, thoracic region; M47.13 Other spondylosis with myelopathy, cervicothoracic region; S32.019A Unspecified fracture of first lumbar vertebra, initial encounter for closed fracture; D69.6 Thrombocytopenia, unspecified; E11.319 Type 2 diabetes mellitus with unspecified diabetic retinopathy without macular edema; E11.42 Type 2 diabetes mellitus with diabetic polyneuropathy; J44.9 Chronic obstructive pulmonary disease, unspecified; I10 Essential (primary) hypertension; G25.81 Restless legs syndrome; M48.062 Spinal stenosis, lumbar region with neurogenic claudication; M47.27 Other spondylosis with radiculopathy, lumbosacral region; M25.78 Osteophyte, vertebrae; M40.209 Unspecified kyphosis, site unspecified; M43.17 Spondylolisthesis, lumbosacral region; M43.16 Spondylolisthesis, lumbar region; M48.07 Spinal stenosis, lumbosacral region; R33.8 Other retention of urine; N40.1 Benign prostatic hyperplasia with lower urinary tract symptoms; G47.33 Obstructive sleep apnea (adult) (pediatric); M51.16 Intervertebral disc disorders with radiculopathy, lumbar region; W10.9XXA Fall (on) (from) unspecified stairs and steps, initial encounter; M51.17 Intervertebral disc disorders with radiculopathy, lumbosacral region; E78.5 Hyperlipidemia, unspecified; K21.9 Gastro-esophageal reflux disease without esophagitis; K59.00 Constipation, unspecified; R03.1 Nonspecific low blood-pressure reading; H91.93 Unspecified hearing loss, bilateral; Z97.4 Presence of external hearing-aid; Z85.828 Personal history of other malignant neoplasm of skin; Z87.19 Personal history of other diseases of the digestive system; Z87.891 Personal history of nicotine dependence; Z79.899 Other long term (current) drug therapy; Z79.51 Long term (current) use of inhaled steroids; Z79.82 Long term (current) use of aspirin; Z79.84 Long term (current) use of oral hypoglycemic drugs; Z91.041 Radiographic dye allergy status; Z28.310 Unvaccinated for COVID-19
CPT/HCPCS: 71045; 72100; 72131; 80048; 83036; 85025; 85027; 86850; 86900; 86901; 88307; 94760

== ENCOUNTER 2023-12-18 13:41 | Emergency (ER) | payer OTHER ==
[2023-12-18 14:55] VITALS: TEMP 97.9
[2023-12-18 14:59] LABS: Appearance,Urine Cloudy (Clear); Bilirubin,Urine Negative (Negative); Blood,Urine Large (Negative); Color,Urine Light Yellow; Glucose,Urine (UA) 4+ (Negative); Ketones,Urine Negative (Negative); Leukocyte Esterase,Urine Moderate (Negative); Nitrite,Urine Negative (Negative); Protein,Urine 1+ (Negative); RBC,Urine >182 /hpf (0-5); Specific Gravity,Urine 1.027 (1.001-1.035); Urobilinogen,Urine <2.0 mg/dL (<2.0); WBC,Urine 167 /hpf (0-5)
--- NOTE | 2023-12-18 15:12 | ED ---
General Adult HPI - General Chief complaint: Urogenital Stated complaint: Blood in urine Time Seen by Provider: 12/18/23 13:54 Source: patient, family, RN notes reviewed Mode of arrival: wheelchair Limitations: no limitations - History of Present Illness Initial comments: Patient is a pleasant 78-year-old male present to the emergency department with hematuria and dysuria. Patient did have similar symptoms several weeks ago that resolved with medication, unclear what. Symptoms started again this morning. Patient is unclear what antibiotic he was on however questions if it may have been amoxicillin. No suprapubic pain. No fever or vomiting. - Related Data Home Medications Medication Instructions Recorded Confirmed Albuterol Inhaler [Ventolin Hfa 1 puff INHALATION RT-Q4H PRN 09/23/21 10/06/23 Inhaler] Fluticasone Propion/Salmeterol 1 puff INHALATION RT-BID 09/23/21 10/06/23 [Fluticasone-Salmeterol 250-50] Latanoprost [Xalatan 0.005%] 1 drop BOTH EYES HS 09/23/21 10/06/23 Tamsulosin [Flomax] 0.8 mg PO DAILY 09/23/21 10/06/23 Tiotropium 2.5 Mcg/Puff [Spiriva 2 puff INHALATION RT-DAILY 09/23/21 10/06/23 Respimat 2.5 Mcg] Aspirin EC [Ecotrin Low Dose] 81 mg PO DAILY 11/04/22 10/06/23 Carbamide Peroxide [Debrox Otic] 5 - 10 drops BOTH EARS BID PRN 11/04/22 10/06/23 Clotrimazole Cream [Lotrimin Cream] 1 applic TOPICAL BID PRN 11/04/22 10/06/23 Finasteride [Proscar] 5 mg PO DAILY 11/04/22 10/06/23 Ketoconazole [Ketoconazole 2% 1 applic TOPICAL DAILY PRN 11/04/22 10/06/23 Shampoo] Omeprazole 20 mg PO DAILY 11/04/22 10/06/23 Simvastatin [Zocor] 20 mg PO HS 11/04/22 10/06/23 Zinc Gluconate [Zinc] 50 mg PO DAILY 11/04/22 10/06/23 metFORMIN HCL [Glucophage] 850 mg PO DAILY 11/04/22 10/06/23 rOPINIRole HCL [Requip] 3 mg PO HS 11/04/22 10/06/23 Previous Rx's Medication Instructions Recorded Cyclobenzaprine [Flexeril] 5 mg PO TID PRN #30 tablet 10/15/23 Gabapentin 300 mg PO TID #90 cap 10/15/23 HYDROcodone/APAP 10-325MG [Lawson 1 tab PO Q4-6H PRN #42 tab 10/15/23 10-325] Sennosides/Docusate Sodium [Senna 1 each PO DAILY PRN #20 capsule 10/15/23 Plus 8.6-50 mg Softgel] cefaDROXiL [Duricef] 500 mg PO Q12HR #10 cap 10/15/23 Phenazopyridine [Pyridium] 100 mg PO TID #6 tablet 12/18/23 Sulfamethox-Tmp 800-160Mg [Bactrim 1 each PO Q12HR #20 tab 12/18/23 DS 800-160 mg] Allergies Allergy/AdvReac Type Severity Reaction Status Date / Time iodine Allergy Anaphylaxis Verified 12/18/23 13:48 Review of Systems ROS Statement: Those systems with pertinent positive or pertinent negative responses have been documented in the HPI. ROS Other: All systems not noted in ROS Statement are negative. Constitutional: Denies: fever Eyes: Denies: eye pain ENT: Denies: ear pain Respiratory: Denies: dyspnea Gastrointestinal: Denies: abdominal pain Genitourinary: Reports: dysuria, frequency, hematuria Past Medical History Past Medical History: Cancer, COPD, Diabetes Mellitus, Eye Disorder, GERD/Reflux, Hearing Disorder / Deafness, Hyperlipidemia, Hypertension, Osteoarthritis (OA), Pneumonia, Prostate Disorder, Sleep Apnea/CPAP/BIPAP, Vascular Disorder Additional Past Medical History / Comment(s): NIDDM type II, neuropathy bilateral hands/feet, diabetic retinopathy, MAGAN with Cpap, skin cancer with removals, diverticular disease, RLS, BPH, bilateral ear infections/tinnitis/[place] uses hearing aides History of Any Multi-Drug Resistant Organisms: None Reported Past Surgical History: Back Surgery, Hernia Repair, Orthopedic Surgery Additional Past Surgical History / Comment(s): Cervical fusion, L5 back surgery, umbilical hernia, colonoscopies, vasectomy, circumcism. Past Anesthesia/Blood Transfusion Reactions: No Reported Reaction Past Psychological History: No Psychological Hx Reported Smoking Status: Former smoker Past Alcohol Use History: None Reported Past Drug Use History: None Reported - Past Family History Father Family Medical History: Unable to Obtain Mother Family Medical History: No Reported History Additional Family Medical History / Comment(s): Mother lived into her 90s. General Exam Limitations: no limitations General appearance: alert, in no apparent distress Head exam: Present: normocephalic Eye exam: Present: normal appearance Respiratory exam: Present: normal lung sounds bilaterally Cardiovascular Exam: Present: regular rate, normal rhythm GI/Abdominal exam: Present: soft. Absent: tenderness exam: Present: normal inspection Extremities exam: Present: normal inspection Neurological exam: Present: alert Psychiatric exam: Present: normal affect, normal mood Course Vital Signs 12/18/23 13:42 Temperature 97.9 F Pulse Rate 93 Respiratory 20 Rate Blood Pressure 127/77 O2 Sat by Pulse 94 L Oximetry Medical Decision Making - Medical Decision Making Was pt. sent in by a medical professional or institution (, PA, GIS COORDINATOR, urgent care, hospital, or fci...) When possible be specific @ -No Did you speak to anyone other than the patient for history (EMS, parent, family, police, friend...)? What history was obtained from this source @ -Female accompanies patient and helps provide history including previous infection Did you review nursing and triage notes (agree or disagree)? Why? @ -I reviewed and agree with nursing and triage notes Were old charts reviewed (outside hosp., previous admission, EMS record, old EKG, old radiological studies, urgent care reports/EKG's, fci records)? Report findings @ -No old charts were reviewed Differential Diagnosis (chest pain, altered mental status, abdominal pain women, abdominal pain men, vaginal bleeding, weakness, fever, dyspnea, syncope, heada esperanza, dizziness, GI bleed, back pain, seizure, CVA, palpatations, mental health, musculoskeletal)? @ -Differential Abdominal Pain Men: Appendicitis, cholecystitis, diverticulosis, ischemic bowel, pancreatitis, hepatitis, UTI, gastroenteritis, AAA, incarcerated hernia, bowel obstruction, constipation, inflammatory bowel, hepatitis, peptic ulcer disease, splenic infarction, perforated viscus, testicular torsion, this is not meant to be an all-inclusive list EKG interpreted by me (3pts min.). @ -As above X-rays interpreted by me (1pt min.). @ -None done CT interpreted by me (1pt min.). @ -None done U/S interpreted by me (1pt. min.). @ -None done What testing was considered but not performed or refused? (CT, X-rays, U/S, labs)? Why? @ -None What meds were considered but not given or refused? Why? @ -None Did you discuss the management of the patient with other professionals (professionals i.e. DrRosie, PA, GIS COORDINATOR, lab, RT, psych nurse, executive secretary social welfare, production control specialist, teacher, chairman president and chief executive officer, wrapper caser)? Give summary @ -No Was smoking cessation discussed for >3mins.? @ -No Was critical care preformed (if so, how long)? @ -No Were there social determinants of health that impacted care today? How? (Homelessness, low income, unemployed, alcoholism, drug addiction, transportation, low edu. Level, literacy, decrease access to med. care, alf, rehab)? @ -No Was there de-escalation of care discussed even if they declined (Discuss DNR or withdrawal of care, Hospice)? DNR status @ -No What co-morbidities impacted this encounter? (DM, HTN, Smoking, COPD, CAD, Cancer, CVA, ARF, Chemo, Hep., AIDS, mental health diagnosis, sleep apnea, morbid obesity)? @ -None Was patient admitted / discharged? Hospital course, mention meds given and route, prescriptions, significant lab abnormalities, going to OR and other pertinent info. @ -Patient presents with urinary symptoms. Urinalysis with white cells and red cells. Patient will be covered with antibiotics and culture obtained. Recommended follow-up with his doctor Undiagnosed new problem with uncertain prognosis? @ -No Drug Therapy requiring intensive monitoring for toxicity (Heparin, Nitro, Insulin, Cardizem)? @ -No Were any procedures done? @ -No Diagnosis/symptom? @ -Urinary tract infection Acute, or Chronic, or Acute on Chronic? @ -Acute Uncomplicated (without systemic symptoms) or Complicated (systemic symptoms)? @ -Default Side effects of treatment? @ -No Exacerbation, Progression, or Severe Exacerbation? @ -No Poses a threat to life or bodily function? How? (Chest pain, USA, ID, pneumonia, PE, COPD, DKA, ARF, appy, cholecystitis, CVA, Diverticulitis, Homicidal, Suicidal, threat to staff... and all critical care pts) @ -No - Lab Data Lab Results 12/18/23 Range/Units 14:32 Urine Color Light Yellow Urine Appearance Cloudy (Clear) Urine pH 7.0 (5.0-8.0) Ur Specific [place] 1.027 (1.001-1.035) Urine Protein 1+ H (Negative) Urine Glucose (UA) 4+ H (Negative) Urine Ketones Negative (Negative) Urine Blood Large H (Negative) Urine Nitrite Negative (Negative) Urine Bilirubin Negative (Negative) Urine Urobilinogen <2.0 (<2.0) mg/dL Ur Leukocyte Esterase Moderate H (Negative) Urine RBC >182 H (0-5) /hpf Urine WBC 167 H (0-5) /hpf Disposition Clinical Impression: Urinary tract infection Disposition: HOME SELF-CARE Condition: Stable Instructions (If sedation given, give patient instructions): Urinary Tract Infection in Men (ED) Additional Instructions: Prescription sent to pharmacy. Please do follow-up with your primary care physician Thursday. Have primary care physician review urine culture. Return for fever, vomiting, increased pain, worsening or changing symptoms or other concerns. Prescriptions: Sulfamethox-Tmp 800-160Mg [Bactrim DS 800-160 mg] 1 each PO Q12HR #20 tab Phenazopyridine [Pyridium] 100 mg PO TID #6 tablet Is patient prescribed a controlled substance at d/c from ED?: No Referrals: [facility],Clinic [Primary Care Provider] - 1-2 days Time of Disposition: 15:11
[2023-12-18] MEDS: SULFAMETH-TMP DS STARTER PACK 2 TAB BTL PO STA (15:18)
[2023-12-18 15:30] VITALS: BP 111/62; PULSE 74; RESP 16
== END 2023-12-18 15:23 | disposition home or self-care (01) ==
LOC: EC 13:41
DX: N39.0 Urinary tract infection, site not specified (principal); E11.319 Type 2 diabetes mellitus with unspecified diabetic retinopathy without macular edema; J44.9 Chronic obstructive pulmonary disease, unspecified; K21.9 Gastro-esophageal reflux disease without esophagitis; E78.5 Hyperlipidemia, unspecified; I10 Essential (primary) hypertension; Z87.891 Personal history of nicotine dependence; G47.30 Sleep apnea, unspecified; Z79.51 Long term (current) use of inhaled steroids; Z79.82 Long term (current) use of aspirin; Z79.84 Long term (current) use of oral hypoglycemic drugs; Z79.899 Other long term (current) drug therapy; Z91.041 Radiographic dye allergy status
CPT/HCPCS: 51798; 81001; 87086; 99284

== ENCOUNTER → 2024-05-11 | Outpatient (CLI) | payer OTHER | LOC: PNWHC3 12:54 | DX: M54.50 Low back pain, unspecified | CPT/HCPCS: 99211 ==

== ENCOUNTER 2024-05-24 10:00 | Day surgery (SDC) | payer OTHER ==
[2024-05-24] MEDS ORDERED: ROPIVACAINE 5MG/ML 20ML VIAL ONE (10:25)
[2024-05-24] MEDS ORDERED: methylPREDNISolone ACETATE 40 MG/ML 1 ML VIAL ONE (10:25)
--- NOTE | 2024-07-05 18:20 | FL ---
EXAMINATION TYPE: FL guided pain mgmt statistic DATE OF EXAM: 06/07/2024 4:21 PM COMPARISON: Pre Operative Images if available both CT/MRI or plain film CLINICAL INDICATION: Male, 78 years old with history of RIGHT SI JOINT; TECHNIQUE: FL guided pain mgmt statistic, multiple fluoroscopic images provided for procedure. Total fluoroscopy time: 7.8 seconds Total submitted images to PACS: 1 DAP: 0.63040 mGym2 Gycm2 uGym2 cGycm2 or equivalent. FINDINGS: Fluoroscopic images during injection for pain management demonstrate degeneration changes of the sacr oiliac joints. No evidence for fracture. No acute process identified. IMPRESSION: 1. No evidence for intraoperative complication. 2. Please see the operative/procedural note for further details. [facility], , 07/05/2024 6:18 PM
== END 2024-05-24 11:25 ==
LOC: ORPAIN 10:00
PROVIDERS: ATTEND Hospitalist
DX: M46.1 Sacroiliitis, not elsewhere classified (principal); M79.18 Myalgia, other site; Z88.5 Allergy status to narcotic agent
CPT/HCPCS: 20553; 27096

== ENCOUNTER → 2024-06-09 | Outpatient (CLI) | payer OTHER ==
[2024-06-09 10:32] VITALS: BP 107/68; PULSE 88; RESP 16; TEMP 97.7
--- NOTE | 2024-06-09 14:12 | P.PAINPG ---
Objective - Vital Signs Vital signs: Intake & Output 06/08/24 06/09/24 06/09/24 18:59 06:59 18:59 Weight 97.522 kg PQRS Measure Charge Sheet Comment: A 78 yr old male with a history of severe and chronic LBP secondary to L4-S1 post laminectomy syndrome, R Sacroiliitis presents today for evaluation s/p R SI injection and BL lumbar TPIs. Pt states he experienced 5 % pain relief x 3 wks s/p procedure. Pain level is provoked at 6 /10 in intensity, constant, pred ominantly axial, localized in the lumbar spine, achy in character w occasional shooting towards the R flank. Pain is provoked by over activity. Pain is alleviated with medications, topical, PT x 7 wks since Apr 2024 which he is currently in, use of a walker for ambulatory assistance, repositioning and rest. Interventional pain procedures completed include L4-S1 discectomy w fusion (Oct 2023) Patient is currently on [place], Flexeril, Tyl, Ibu, Icy-Hot Patient denies any side effects of the medication(s), denies excessive drowsiness or sleepiness, denies suicidal ideation and reports that the current pain medication is helping to control the pain and improve activities of daily living. Patient denies any motor or sensory deficits. Patient denies any fever or night sweats, denies any change in the bowel movements or urination. Physical Examination: -Constitutional: Cooperative. Not in acute distress . - Neurologic: Cranial nerve II to XII intact. No focal neurological deficits. - Psychatric: Alert & oriented x 3. Matching mood & appropriate affect. Judgment and insight intact. - Musculoskeletal: Cervical spine: Muscle bulk/ tone/ strength in the bilateral upper extremities normal Vertebral body tenderness to palpation over Spurling test positive Distraction test positive Facet loading test positive TTP Thoracic spine Muscle bulk / tone/ strength in the bilateral paraspinal muscles normal Vertebral body tender to palpation over Facet loading test positive TTP Lumbar spine: +well healed 6" vertical incisional scar Motor bulk/ tone/ strength lower extremities , thigh and legs : 5/5 Deep tendon reflexes : Normal Knee Jerk. Normal Ankle Jerk . Vertebral body tenderness to palpation over L1 Galvan Test positive R> L L1-L2 Lumbar Facet Loading Test positive Straight Leg Raise: positive at 30 degrees right side/ left side Gaenslen's Test positive Sacral spine : Severe tenderness over the Sacroiliac joint: right side / left side Range of motion: Flexion of the lumbar spine <60 degrees Range of motion: Extension of the lumbar spine <20 degrees Gaenslen's Test positive right side / left side Michaela test: positive right side / left side Thigh Thrust Test positive right side / left side Sacral Thrust Test positive right side / left side Imaging CT non contrast lumbar spine from 10/13/23 reviewed Assessment and plan: Chronic LBP secondary to L4-S1 post laminectomy syndrome, R Sacroiliitis Recommendation of JUSTINA L1-L2 #1. Risks, benefits of procedure discussed and pt verbalized understanding. Admits to anticoagulant use or medical history of diabetes. Protocol for discontinuation/ continuation of medications julien procedure discussed. Minimal anesthesia provided, if clinically indicated, consisting of Versed and Fentanyl. All questions answered. Chronic and current use of high-risk medication (Opioids). The patient was counseled about risk of opioid use, psychological risk associated with opioids and was orally counseled to not overuse , divert or sell medications. Pt is to store medication in a safe location. The patient is counseled against driving while using narcotic medications and also not to use alcohol or any illicit recreational drugs. Patient verbalized understanding that the lack of compliance will result in failure to renew narcotic prescription(s) as well as possible discharge from the clinic Diagnoses, prognosis and treatment options including but not limited to physical therapy, surgical interventions, interventional therapies and medication management including narcotics and adjuvant medication were discussed. All patient questions answered MAPS reviewed and it was appropriate. Prescription refill for Percocet 5/325mg #12. Use, side effects, adverse reactions, safe storage discussed I have spent less than 30 minutes on patient care today. Dr Rico was available by phone for the evaluation of this patient. The time was used to review the medical records including relevant urine studies and Prescription history (MAPs), review of the available imaging, evaluation and examination of the patient, coordination of care with the medical staff and if applicable referring physicians, as well as creation of the medical record - Pain Location Right Lower Back Non-Pharmacological Interventions: Physical Therapy, Position/Reposition Pharmacological Interventions: Discuss Pain Med Options, PRN Medication, Topical Medication PQRS Narrative: Smoking Status Former smoker Home Medications: Ambulatory Orders Albuterol Inhaler [Ventolin Hfa Inhaler] 1 puff INHALATION RT-Q4H PRN 09/23/21 Fluticasone Propion/Salmeterol [Fluticasone-Salmeterol 250-50] 1 puff INHALATION RT-BID 09/23/21 Latanoprost [Xalatan 0.005%] 1 drop BOTH EYES HS 09/23/21 Tamsulosin [Flomax] 0.8 mg PO DAILY 09/23/21 Tiotropium 2.5 Mcg/Puff [Spiriva Respimat 2.5 Mcg] 2 puff INHALATION RT-DAILY 09/23/21 Aspirin EC [Ecotrin Low Dose] 81 mg PO DAILY 11/04/22 Carbamide Peroxide [Debrox Otic] 5 - 10 drops BOTH EARS BID PRN 11/04/22 Clotrimazole Cream [Lotrimin Cream] 1 applic TOPICAL BID PRN 11/04/22 Finasteride [Proscar] 5 mg PO DAILY 11/04/22 Ketoconazole [Ketoconazole 2% Shampoo] 1 applic TOPICAL DAILY PRN 11/04/22 Omeprazole 20 mg PO DAILY 11/04/22 Simvastatin [Zocor] 20 mg PO HS 11/04/22 Zinc Gluconate [Zinc] 50 mg PO DAILY 11/04/22 metFORMIN HCL [Glucophage] 850 mg PO DAILY 11/04/22 rOPINIRole HCL [Requip] 3 mg PO HS 11/04/22 Cyclobenzaprine [Flexeril] 5 mg PO TID PRN #30 tablet 10/15/23 Phenazopyridine [Pyridium] 100 mg PO TID #6 tablet 12/18/23 oxyCODONE HCL/ACETAMINOPHEN [Percocet 5-325 mg] 1 tab PO Q6HR PRN 3 Days #12 tab 06/09/24 Controlled Substance Measures - Controlled Substance Measures Is patient prescribed a controlled substance at discharge?: Yes When asked, does pt state using other controlled substances?: No If prescribed controlled substance>3 days was MAPS reviewed?: Prescribed <3 Days
== END ==
LOC: PNWHC3 09:47
PROVIDERS: ATTEND Specialist
DX: M54.50 Low back pain, unspecified
CPT/HCPCS: 99211

== ENCOUNTER 2024-06-23 12:26 | Day surgery (SDC) | payer OTHER ==
[2024-06-22 12:48] VITALS: BMI 31.7
[2024-06-23 13:48] VITALS: TEMP 98.2
[2024-06-23] MEDS ORDERED: LACTATED RINGERS 1,000 ML IV SCH (13:48)
[2024-06-23 14:00] LABS: Glucose,Whole Blood 124 mg/dL (70-110)
[2024-06-23] MEDS ORDERED: ROPIVACAINE 5MG/ML 20ML VIAL ONE (14:56)
[2024-06-23] MEDS ORDERED: methylPREDNISolone ACETATE 80 MG/ML 1 ML VIAL ONE (14:56)
--- NOTE | 2024-06-23 15:20 | P.PCN ---
Description of Procedure: PREOPERATIVE DIAGNOSIS: 1- Lumbar Degenerative Disc Diseases 2-Lumbar spondylosis with Facet arthropathy without myelopathy. 3-lumbar spinal stenosis POSTOPERATIVE DIAGNOSIS: 1-lumbar degenerative disc disease. 2-lumbar spondylosis with facet arthropathy without myelopathy. 3-lumbar spinal stenosis. PROCEDURE Injection of radio contrast material into T12-L1 interspace, interpretation of epidurogram, injection of steroid at T12-L1 epidural space under fluoroscopic guidance. ANESTHESIA: Lidocaine 1% subcutaneously. In OR continuous pulse ox, EKG, blood pressure and verbal communication was maintained with the patient. EBL: Minimal PROCEDURE INDICATION: Before the procedure were discussed with the patient detailed procedure, alternatives, complications including infection, bleeding, nerve damage, paralysis all of which could be permanent. Patient understands and all questions were answered. PROCEDURE DESCRIPTION : After getting consent, patient in OR in prone position. Back was prepped with chlorhexidine and draped in sterile fashion. After injecting 10 mL of 1% lidocaine subcutaneously, a 20-gauge Tuohy needle was introduced at T12-L1 interspace with loss of resistance technique using a syringe filled with air. T12-L1 interspace was the lowest possible interspace since patient had extensive surgery and scar tissue. Negative CSF, negative blood, negative paresthesia. Needle position was confirmed with AP and lateral view of the fluoroscope. No contrast was used because of patient's iodine allergy. After repeat negative aspiration 6 mL solution was injected intermittently which consists of 5 mL of preservative-free normal saline mixed with 1 mL of 80 mg Depo-Medrol. Needle was withdrawn intact. Skin was cleansed and Band-Aids was applied. DISPOSITION / PLANS: The patient tolerated the procedure well. No complication. The patient was placed in a supine position and transferred to the recovery area in a stable condition for observation. There was no evidence of lower extremity motor or sensory deficit after the procedure. Patient was discharged from the recovery room after meeting discharge criteria. Home discharge instructions were given to the patient by the staff. The patient was reexamined prior to discharge. The patient will schedule a follow up in the clinic in 2-4 weeks.
[2024-06-23 15:36] VITALS: BP 122/86; PULSE 89; RESP 18
--- NOTE | 2024-07-07 10:36 | FL ---
EXAMINATION TYPE: FL guided pain mgmt statistic DATE OF EXAM: 06/23/2024 3:14 PM COMPARISON: Pre Operative Images if available both CT/MRI or plain film CLINICAL INDICATION: Male, 78 years old with history of Lumbar Epid Inj; TECHNIQUE: FL guided pain mgmt statistic, multiple fluoroscopic images provided for procedure. Total fluoroscopy time: 8 seconds Total submitted images to PACS: 2 DAP: 0.0587 mGym2 Gycm2 uGym2 cGycm2 or equivalent. FINDINGS: Fluoroscopic images during injection for pain management demonstrate multilevel degeneration changes throughout the spine. No evidence for fracture. No acute process identified. IMPRESSION: 1. No evidence for intraoperative complication. 2. Please see the operative/procedural note for further details. [facility], , 07/07/2024 10:33 AM
== END 2024-06-23 15:52 | disposition home or self-care (01) ==
LOC: ORPAIN 12:26
PROVIDERS: ATTEND Pain Medicine Interventional Pain Medicine
DX: M54.16 Radiculopathy, lumbar region
CPT/HCPCS: 62323

== ENCOUNTER → 2024-07-07 | Outpatient (CLI) | payer OTHER ==
[2024-07-07 11:09] VITALS: BP 106/63; PULSE 51; RESP 19
--- NOTE | 2024-07-07 15:03 | P.PAINPG ---
PQRS Measure Charge Sheet Comment: A 78 yr old male with a history of severe and chronic LBP secondary to L4-S1 post laminectomy syndrome, R Sacroiliitis presents today for evaluation s/p JUSTINA T12-L1 #1. Pt states he experienced >50 % pain relief x 2-3 wks s/p procedure. Pain level is provoked at 6 /10 in intensity, constant, predominantly axial, localized in the lumbar spine, achy in character w occasional shooting towards the R flank. Pain is provoked by over activity. Pain is alleviated with medications, topical, PT x 7 wks since Apr 2024 which he is currently in, use of a walker for ambulatory assistance, repositioning and rest. Interventional pain procedures completed include L4-S1 discectomy w fusion (Oct 2023), JUSTINA T12-L1 x1 Patient is currently on [place], Flexeril, Tyl, Ibu, Icy-Hot Patient denies any side effects of the medication(s), denies excessive drowsiness or sleepiness, denies suicidal ideation and reports that the current pain medication is helping to control the pain and improve activities of daily living. Patient denies any motor or sensory deficits. Patient denies any fever or night sweats, denies any change in the bowel movements or urination. Physical Examination: -Constitutional: Cooperative. Not in acute distress . - Neurologic: Cranial nerve II to XII intact. No focal neurological deficits. - Psychatric: Alert & oriented x 3. Matching mood & appropriate affect. Judgment and insight intact. - Musculoskeletal: Cervical spine: Muscle bulk/ tone/ strength in the bilateral upper extremities normal Vertebral body tenderness to palpation over Spurling test positive Distraction test positive Facet loading test positive TTP Thoracic spine Muscle bulk / tone/ strength in the bilateral paraspinal muscles normal Vertebral body tender to palpation over Facet loading test positive TTP Lumbar spine: +well healed 6" vertical incisional scar Motor bulk/ tone/ strength lower extremities , thigh and legs : 5/5 Deep tendon reflexes : Normal Knee Jerk. Normal Ankle Jerk . Vertebral body tenderness to palpation over L1 Galvan Test positive R> L L1-L2 Taut bands w twitch response over BL T12-S1 Lumbar Facet Loading Test positive Straight Leg Raise: positive at 30 degrees right side/ left side Gaenslen's Test positive Sacral spine : Severe tenderness over the Sacroiliac joint: right side / left side Range of motion: Flexion of the lumbar spine <60 degrees Range of motion: Extension of the lumbar spine <20 degrees Gaenslen's Test positive right side / left side Michaela test: positive right side / left side Thigh Thrust Test positive right side / left side Sacral Thrust Test positive right side / left side Imaging CT non contrast lumbar spine from 10/13/23 reviewed Assessment and plan: Chronic LBP secondary to L4-S1 post laminectomy syndrome, R Sacroiliitis Recommendation of BL TPIs T12-S1 #1. Risks, benefits of procedure discussed and pt verbalized understanding. Admits to anticoagulant use or medical history of diabetes. Protocol for discontinuation/ continuation of medications julien procedure discussed. Minimal anesthesia provided, if clinically indicated, consisting of Versed and Fentanyl. All questions answered. Chronic and current use of high-risk medication (Opioids). The patient was counseled about risk of opioid use, psychological risk associated with opioids and was orally counseled to not overuse , divert or sell medications. Pt is to store medication in a safe location. The patient is counseled against driving while using narcotic medications and also not to use alcohol or any illicit recreational drugs. Patient verbalized understanding that the lack of compliance will result in failure to renew narcotic prescription(s) as well as possible discharge from the clinic Diagnoses, prognosis and treatment options including but not limited to physical therapy, surgical interventions, interventional therapies and medication management including narcotics and adjuvant medication were discussed. All patient questions answered MAPS reviewed and it was appropriate. Prescription refill for Percocet 5/325mg #12. Add Zanaflex 4mg #90 w 1 RF. Use, side effects, adverse reactions, safe storage discussed I have spent less than 30 minutes on patient care today. Dr Rico was available by phone for the evaluation of this patient. The time was used to review the medical records including relevant urine studies and Prescription history (MAPs), review of the available imaging, evaluation and examination of the patient, coordination of care with the medical staff and if applicable referring physicians, as well as creation of the medical record - Pain Location Lower Back Pharmacological Interventions: Epidural PQRS Narrative: Smoking Status Former smoker Hx Alcohol Use (MH) No Home Medications: Ambulatory Orders Albuterol Inhaler [Ventolin Hfa Inhaler] 1 puff INHALATION RT-Q4H PRN 09/23/21 Fluticasone Propion/Salmeterol [Fluticasone-Salmeterol 250-50] 1 puff INHALATION RT-BID 09/23/21 Latanoprost [Xalatan 0.005%] 1 drop BOTH EYES HS 09/23/21 Tamsulosin [Flomax] 0.8 mg PO DAILY 09/23/21 Tiotropium 2.5 Mcg/Puff [Spiriva Respimat 2.5 Mcg] 2 puff INHALATION RT-DAILY 09/23/21 Aspirin EC [Ecotrin Low Dose] 81 mg PO DAILY 11/04/22 Carbamide Peroxide [Debrox Otic] 5 - 10 drops BOTH EARS BID PRN 11/04/22 Clotrimazole Cream [Lotrimin Cream] 1 applic TOPICAL BID PRN 11/04/22 Finasteride [Proscar] 5 mg PO DAILY 11/04/22 Omeprazole 20 mg PO DAILY 11/04/22 Simvastatin [Zocor] 20 mg PO HS 11/04/22 Zinc Gluconate [Zinc] 50 mg PO DAILY 11/04/22 metFORMIN HCL [Glucophage] 850 mg PO DAILY 11/04/22 rOPINIRole HCL [Requip] 3 mg PO HS 11/04/22 Ascorbic Acid [Vitamin C] 750 mg PO DAILY 06/22/24 Cholecalciferol (Vitamin D3) [Vitamin D3 (1250 Mcg = 50,000 Iu)] 1,250 mcg PO DAILY 06/22/24 Ciprofloxacin-Hc Otic Susp [Cipro Hc Otic Suspension] 3 drops BOTH EARS BID 06/22/24 [place]-3/Dha/Epa/Fish Oil [Fish Oil 1,000 mg Softgel] 500 mg PO DAILY 06/22/24 carvediloL [Coreg] 25 mg PO BID 06/22/24 oxyCODONE HCL/ACETAMINOPHEN [Percocet 5-325 mg] 1 tab PO Q6HR PRN 3 Days #12 tab 07/07/24 tiZANidine [Zanaflex] 4 mg PO TID PRN 30 Days #90 tab 07/07/24 Controlled Substance Measures - Controlled Substance Measures Is patient prescribed a controlled substance at discharge?: Yes When asked, does pt state using other controlled substances?: No If prescribed controlled substance>3 days was MAPS reviewed?: Prescribed <3 Days
== END ==
LOC: PNWHC3 10:50
PROVIDERS: ATTEND Specialist
DX: M54.16 Radiculopathy, lumbar region (principal); M96.1 Postlaminectomy syndrome, not elsewhere classified; M46.1 Sacroiliitis, not elsewhere classified; Z79.891 Long term (current) use of opiate analgesic; Z87.891 Personal history of nicotine dependence; Z88.8 Allergy status to other drugs, medicaments and biological substances
CPT/HCPCS: 99211

== ENCOUNTER 2024-08-30 11:16 | Day surgery (SDC) | payer OTHER ==
[2024-08-30] MEDS ORDERED: LACTATED RINGERS 1,000 ML IV SCH (12:12)
[2024-08-30 12:32] VITALS: RESP 16; TEMP 97.4
[2024-08-30 12:38] LABS: Glucose,Whole Blood 106 mg/dL (70-110)
[2024-08-30] MEDS ORDERED: ROPIVACAINE 5MG/ML 20ML VIAL ONE (13:35)
[2024-08-30] MEDS ORDERED: methylPREDNISolone ACETATE 80 MG/ML 1 ML VIAL ONE (13:35)
--- NOTE | 2024-08-30 13:55 | P.PCN ---
Description of Procedure: Preprocedure diagnosis. Myofascial pain. Myofascial trigger point. Postprocedure diagnosis. As above. Procedure done. Myofascial trigger point injection with local anesthetics and steroid at 4 points. Anesthesia. Local anesthetic infiltration. In the OR continuous pulse ox, EKG, blood pressure, and verbal communication was maintained with the patient. Blood loss. None. Indication. Discussed with the patient procedure, alternatives and possible complications which may include infection, bleeding, nerve damage, aggravation of pain. Patient understands and all questions were answered. Procedure note. After getting consent patient in the procedure area. Most tender points were identified and marked. A 25-gauge needle attached to syringe was introduced at the trigger points and after negative aspiration 5 mL solution are injected at each trigger point. I injected 4 trigger points in right lumber paraspinal muscles Total solution consists of 18 ml 0.5%Ropivacaine mixed with 80 mg Depomedrol. Disposition. Patient tolerated the procedure well. No complication. Discharged home in stable condition.
[2024-08-30 14:11] VITALS: BP 129/85; PULSE 83
== END 2024-08-30 14:36 | disposition home or self-care (01) ==
LOC: ORPAIN 11:16
PROVIDERS: ATTEND Pain Medicine Interventional Pain Medicine
DX: M79.18 Myalgia, other site (principal); Z91.048 Other nonmedicinal substance allergy status
CPT/HCPCS: 20553

== ENCOUNTER → 2024-09-26 | Outpatient (CLI) | payer OTHER ==
[2024-09-26 11:00] VITALS: BP 102/69; PULSE 96; RESP 16; TEMP 96.8
--- NOTE | 2024-09-26 14:54 | P.PAINPG ---
PQRS Measure Charge Sheet Comment: A 79 yr old male with a history of severe and chronic LBP secondary to L4-S1 post laminectomy syndrome, R Sacroiliitis presents today for evaluation s/p BL TPIs T12-S1 #1. Pt states he experienced >50 % pain relief x 3-4 wks s/p procedure. Pain level is provoked at 6 /10 in intensity, constant, predominantly axial, localized in the lumbar spine, achy in character w occasional shooting towards the R flank. Pain is provoked by over activity. Pain is alleviated with medications, topical, PT x 7 wks since Apr 2024 which he is currently in, use of a walker for ambulatory assistance, repositioning and rest. Interventional pain procedures completed include L4-S1 discectomy w fusion (Oct 2023), JUSTINA T12-L1 x1, BL TPIs T12-S1 x1 Patient is currently on [place], Flexeril, Tyl, Ibu, BioFreeze, Icy-Hot Patient denies any side effects of the medication(s), denies excessive drowsiness or sleepiness, denies suicidal ideation and reports that the current pain medication is helping to control the pain and improve activities of daily living. Patient denies any motor or sensory deficits. Patient denies any fever or night sweats, denies any change in the bowel movements or urination. Physical Examination: -Constitutional: Cooperative. Not in acute distress . - Neurologic: Cranial nerve II to XII intact. No focal neurological deficits. - Psychatric: Alert & oriented x 3. Matching mood & appropriate affect. Judgment and insight intact. - Musculoskeletal: Cervical spine: Muscle bulk/ tone/ strength in the bilateral upper extremities normal Vertebral body tenderness to palpation over Spurling test positive Distraction test positive Facet loading test positive TTP Thoracic spine Muscle bulk / tone/ strength in the bilateral paraspinal muscles normal Vertebral body tender to palpation over Facet loading test positive TTP Lumbar spine: +well healed 6" vertical incisional scar Motor bulk/ tone/ strength lower extremities , thigh and legs : 5/5 Deep tendon reflexes : Normal Knee Jerk. Normal Ankle Jerk . Vertebral body tenderness to palpation over L1 Galvan Test positive R> L L1-L2 Taut bands w twitch response over BL T12-S1 Lumbar Facet Loading Test positive Straight Leg Raise: positive at 30 degrees right side/ left side Gaenslen's Test positive Sacral spine : Severe tenderness over the Sacroiliac joint: right side / left side Range of motion: Flexion of the lumbar spine <60 degrees Range of motion: Extension of the lumbar spine <20 degrees Gaenslen's Test positive right side / left side Michaela test: positive right side / left side Thigh Thrust Test positive right side / left side Sacral Thrust Test positive right side / left side Imaging CT non contrast lumbar spine from 10/13/23 reviewed Assessment and plan: Chronic LBP secondary to L4-S1 post laminectomy syndrome, R Sacroiliitis Recommendation of . Risks, benefits of procedure discussed and pt verbal ized understanding. Admits to anticoagulant use or medical history of diabetes. Protocol for discontinuation/ continuation of medications julien procedure discussed. Minimal anesthesia provided, if clinically indicated, consisting of Versed and Fentanyl. All questions answered. Chronic and current use of high-risk medication (Opioids). The patient was counseled about risk of opioid use, psychological risk associated with opioids and was orally counseled to not overuse , divert or sell medications. Pt is to store medication in a safe location. The patient is counseled against driving while using narcotic medications and also not to use alcohol or any illicit recreational drugs. Patient verbalized understanding that the lack of compliance will result in failure to renew narcotic prescription(s) as well as possible discharge from the clinic Diagnoses, prognosis and treatment options including but not limited to physical therapy, surgical interventions, interventional therapies and medication management including narcotics and adjuvant medication were discussed. All patient questions answered MAPS reviewed and it was appropriate. Prescription change to Robaxin 500mg #90 w 1 RF. Use, side effects, adverse reactions, safe storage discussed I have spent less than 30 minutes on patient care today. Dr Rico was available by phone for the evaluation of this patient. The time was used to review the medical records including relevant urine studies and Prescription history (MAPs), review of the available imaging, evaluation and examination of the patient, coordination of care with the medical staff and if applicable referring physicians, as well as creation of the medical record PQRS Narrative: Smoking Status Former smoker Hx Alcohol Use (MH) No Home Medications: Ambulatory Orders Albuterol Inhaler [Ventolin Hfa Inhaler] 1 puff INHALATION RT-Q4H PRN 09/23/21 Fluticasone Propion/Salmeterol [Fluticasone-Salmeterol 250-50] 1 puff INHALATION RT-BID 09/23/21 Latanoprost [Xalatan 0.005%] 1 drop BOTH EYES HS 09/23/21 Tamsulosin [Flomax] 0.8 mg PO DAILY 09/23/21 Tiotropium 2.5 Mcg/Puff [Spiriva Respimat 2.5 Mcg] 2 puff INHALATION RT-DAILY 09/23/21 Aspirin EC [Ecotrin Low Dose] 81 mg PO DAILY 11/04/22 Carbamide Peroxide [Debrox Otic] 5 - 10 drops BOTH EARS BID PRN 11/04/22 Finasteride [Proscar] 5 mg PO DAILY 11/04/22 Omeprazole 20 mg PO DAILY 11/04/22 Simvastatin [Zocor] 20 mg PO HS 11/04/22 Zinc Gluconate [Zinc] 50 mg PO DAILY 11/04/22 metFORMIN HCL [Glucophage] 850 mg PO DAILY 11/04/22 rOPINIRole HCL [Requip] 3 mg PO HS 11/04/22 Ascorbic Acid [Vitamin C] 750 mg PO DAILY 06/22/24 Cholecalciferol (Vitamin D3) [Vitamin D3 (1250 Mcg = 50,000 Iu)] 1,250 mcg PO DAILY 06/22/24 Ciprofloxacin-Hc Otic Susp [Cipro Hc Otic Suspension] 3 drops BOTH EARS BID 06/22/24 [place]-3/Dha/Epa/Fish Oil [Fish Oil 1,000 mg Softgel] 500 mg PO DAILY 06/22/24 carvediloL [Coreg] 25 mg PO BID 06/22/24 tiZANidine [Zanaflex] 4 mg PO TID PRN 30 Days #90 tab 07/07/24 Controlled Substance Measures - Controlled Substance Measures Is patient prescribed a controlled substance at discharge?: No
== END ==
LOC: PNWHC3 10:45
PROVIDERS: ATTEND Specialist
DX: M46.1 Sacroiliitis, not elsewhere classified (principal); M47.816 Spondylosis without myelopathy or radiculopathy, lumbar region; M96.1 Postlaminectomy syndrome, not elsewhere classified; Z87.891 Personal history of nicotine dependence; Z88.8 Allergy status to other drugs, medicaments and biological substances
CPT/HCPCS: 99211

== ENCOUNTER 2025-04-07 17:47 | Inpatient (IN) | payer OTHER, MEDICARE ==
[2025-04-07 18:21] LABS: Basophils # (A) 0.09 10*3/uL (0.00-0.10); Basophils % (A) 0.7 %; Eosinophils # (A) 0.00 10*3/uL (0.04-0.35); Eosinophils % (A) 0.0 %; HCT 38.4 % (39.6-50.0); HGB 12.6 g/dL (13.0-17.0); Lymphocytes # (A) 0.29 10*3/uL (0.90-5.00); Lymphocytes % (A) 2.3 %; MCH 31.0 pg (27.0-32.0); MCHC 32.8 g/dL (32.0-37.0); MCV 94.6 fL (80.0-97.0); Monocytes # (A) 0.55 10*3/uL (0.20-1.00); Monocytes % (A) 4.3 %; Neutrophils # (A) 11.68 10*3/uL (1.80-7.70); Neutrophils % (A) 92.1 %; RBC 4.06 10*6/uL (4.40-5.60); RDW 15.3 % (11.5-14.5); WBC 12.68 10*3/uL (4.50-10.00)
[2025-04-07 18:27] LABS: INR 1.1 (<1.2); Partial Thromboplastin Time 22.5 sec (22.0-30.0); Prothrombin Time 12.1 sec (10.0-12.5)
[2025-04-07 18:30] LABS: ALT 17 U/L (4-49); Acetaminophen <10.0 ug/mL; African American GFR (CKD) 32 (>60 ml/min/1.73 sqM); Albumin 2.9 g/dL (3.5-5.0); Anion Gap 11 mmol/L; Blood Urea Nitrogen 37 mg/dL (9-20); Calcium 7.8 mg/dL (8.4-10.2); Carbon Dioxide 20 mmol/L (22-30); Chloride 108 mmol/L (98-107); Glucose 123 mg/dL (74-99); Non-African American GFR(CKD) 27 (>60 ml/min/1.73 sqM); Salicylate <1.0 mg/dL; Sodium 139 mmol/L (137-145); Total Protein 5.4 g/dL (6.3-8.2)
[2025-04-07 18:32] LABS: AST 31 U/L (17-59); Alkaline Phosphatase 95 U/L (38-126); Potassium 4.3 mmol/L (3.5-5.1)
[2025-04-07 18:38] LABS: Platelet Count 95 10*3/uL (140-440)
--- NOTE | 2025-04-07 19:12 | XR ---
EXAMINATION TYPE: XR chest 2V DATE OF EXAM: 04/07/2025 6:53 PM COMPARISON: Chest radiographs from 10/12/2023 TECHNIQUE: XR chest 2V Frontal and lateral views of the chest. CLINICAL INDICATION:Male, 79 years old with history of altered mental status; FINDINGS: Lungs/Pleura: There is no evidence of pleural effusion, focal consolidation, or pneumothorax. Bilate ral lower lobe linear atelectasis. Right lower lung stable calcified granuloma. Pulmonary vascularity: Unremarkable. Heart/mediastinum: Cardiomediastinal silhouette is unremarkable. Atherosclerotic calcifications are seen in the aorta. Musculoskeletal: No acute osseous pathology. Partial visualization of cervical fusion hardware. IMPRESSION: No acute cardiopulmonary disease/process. [facility], , 04/07/2025 7:10 PM
[2025-04-07] MEDS: SODIUM CHLORIDE 0.9% 500 ML 500 ML IV ONE (19:20)
--- NOTE | 2025-04-07 19:58 | CT ---
EXAMINATION TYPE: CT brain wo con CT DLP: 1206.3 mGycm, Automated exposure control for dose reduction was used. DATE OF EXAM: 04/07/2025 7:46 PM COMPARISON: MR brain 10/09/2021, CT brain 09/29/2021 CLINICAL INDICATION:Male, 79 years old with history of Altered mental status, ams TECHNIQUE: Brain: Multiple axial CT images of the brain were obtained without IV contrast. . Coronal and sagitta l reformats reviewed. FINDINGS: Brain: Extra-axial spaces: No abnormal extra-axial fluid collections. Ventricular system: Dilatation in proportion to cerebral atrophy. Cerebral parenchyma: Cerebral atrophy. No acute intraparenchymal hemorrhage or mass effect. The rush -white junction is well differentiated. Scattered hypoattenuating areas are seen within the periventr icular white matter. Small regions of encephalomalacia within the right frontal and temporal lobes f rom prior injury. Cerebellum: Unremarkable. Mass effect: No evidence of midline shift. Intracranial vasculature: Atherosclerotic calcifications of the intracranial vessels. Soft tissues: Normal. Calvarium/osseous structures: No depressed skull fracture. Paranasal sinuses and mastoid air cells: Clear Visualized orbits: Bilateral aphakia IMPRESSION: 1. No acute intracranial process. 2. Remote small injuries redemonstrated within the right frontal and temporal lobes with encephalomal acia. 3. Nonspecific white matter changes, likely secondary to chronic small vessel ischemic disease. [facility], , 04/07/2025 7:56 PM
[2025-04-07] MEDS: SODIUM CHLORIDE 0.9% 1,000 ML IV ONE (21:19)
[2025-04-07 22:05] LABS: Glucose,Whole Blood 111 mg/dL (70-110)
--- NOTE | 2025-04-07 22:08 | ED ---
Altered Mental Status HPI - General Chief Complaint: Altered Mental Status Stated Complaint: Possible overdose Time Seen by Provider: 04/07/25 18:15 Source: patient, EMS Mode of arrival: EMS - History of Present Illness Initial Comments: 79-year-old male who presents to the emergency department with possible overdose. called EMS. She reported to them that he was complaining of back pain. Patient has history of chronic back pain. She states he went into the bathroom to take his meds which were recently prescribled and when he came out, he was confused. Onset was around noon. reported that it was oxycodone and Valium however the scripts were written in 2018. EMS did give the patient 2 mg of nasal Narcan and he did have significant improvement in his mentation. Upon arrival to the emergency department the patient continues to not be able to give me adequate history. does arrive and provides an additional sheet of medications and is now stating that the recently diagnosed ones were celecoxib, gabapentin and methocarbamol which were prescribed on the by Dr. Pandey. 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 Patient denies intentionally taking these medications to harm himself. He denies any falls with head injury. No chest pain or difficulty breathing. No fevers. No changes in his urination no other alleviating, precipitating or modifying factors - Related Data Home Medications Medication Instructions Recorded Confirmed Albuterol Inhaler [Ventolin Hfa 1 puff INHALATION RT-Q4H PRN 09/23/21 09/26/24 Inhaler] Fluticasone Propion/Salmeterol 1 puff INHALATION RT-BID 09/23/21 09/26/24 [Fluticasone-Salmeterol 250-50] Latanoprost [Xalatan 0.005%] 1 drop BOTH EYES HS 09/23/21 09/26/24 Tamsulosin [Flomax] 0.8 mg PO DAILY 09/23/21 09/26/24 Tiotropium 2.5 Mcg/Puff [Spiriva 2 puff INHALATION RT-DAILY 09/23/21 09/26/24 Respimat 2.5 Mcg] Aspirin EC [Ecotrin Low Dose] 81 mg PO DAILY 11/04/22 09/26/24 Carbamide Peroxide [Debrox Otic] 5 - 10 drops BOTH EARS BID PRN 11/04/22 09/26/24 Finasteride [Proscar] 5 mg PO DAILY 11/04/22 09/26/24 Omeprazole 20 mg PO DAILY 11/04/22 09/26/24 Simvastatin [Zocor] 20 mg PO HS 11/04/22 09/26/24 Zinc Gluconate [Zinc] 50 mg PO DAILY 11/04/22 09/26/24 metFORMIN HCL [Glucophage] 850 mg PO DAILY 11/04/22 09/26/24 rOPINIRole HCL [Requip] 3 mg PO HS 11/04/22 09/26/24 Ascorbic Acid [Vitamin C] 750 mg PO DAILY 06/22/24 09/26/24 Cholecalciferol (Vitamin D3) 1,250 mcg PO DAILY 06/22/24 09/26/24 [Vitamin D3 (1250 Mcg = 50,000 Iu)] Ciprofloxacin-Hc Otic Susp [Cipro 3 drops BOTH EARS BID 06/22/24 09/26/24 Hc Otic Suspension] [place]-3/Dha/Epa/Fish Oil [Fish Oil 500 mg PO DAILY 06/22/24 09/26/24 1,000 mg Softgel] carvediloL [Coreg] 25 mg PO BID 06/22/24 09/26/24 Previous Rx's Medication Instructions Recorded methocarbamoL [Robaxin] 500 mg PO TID PRN 30 Days #90 tab 09/26/24 Allergies Allergy/AdvReac Type Severity Reaction Status Date / Time iodine Allergy Anaphylaxis Verified 04/07/25 18:10 Review of Systems ROS Statement: Those systems with pertinent positive or pertinent negative responses have been documented in the HPI. ROS Other: All systems not noted in ROS Statement are negative. Past Medical History Past Medical History: Cancer, COPD, Diabetes Mellitus, Eye Disorder, GERD/Reflux, Hearing Disorder / Deafness, Hyperlipidemia, Hypertension, Osteoarthritis (OA), Pneumonia, Prostate Disorder, Sleep Apnea/CPAP/BIPAP, Vascular Disorder Additional Past Medical History / Comment(s): NIDDM type II, neuropathy bilateral hands/feet, diabetic retinopathy, MAGAN with Cpap, skin cancer with removals, diverticular disease, RLS, BPH, bilateral ear infections/tinnitis/[facility] uses hearing aides, Cataracts History of Any Multi-Drug Resistant Organisms: None Reported Past Surgical History: Back Surgery, Hernia Repair, Orthopedic Surgery Additional Past Surgical History / Comment(s): Cervical fusion, L5 back surgery, umbilical hernia, colonoscopies, vasectomy, circumcism. Past Anesthesia/Blood Transfusion Reactions: No Reported Reaction Past Psychological History: No Psychological Hx Reported Smoking Status: Former smoker Past Alcohol Use History: None Reported Past Drug Use History: None Reported - Past Family History Father Family Medical History: Unable to Obtain Mother Family Medical History: No Reported History Additional Family Medical History / Comment(s): Mother lived into her 90s. General Exam Limitations: altered mental status General appearance: in no apparent distress Head exam: Present: atraumatic, normocephalic, normal inspection Eye exam: Present: normal appearance, PERRL, EOMI. Absent: scleral icterus, conjunctival injection, periorbital swelling ENT exam: Present: mucous membranes dry Neck exam: Present: normal inspection. Absent: tenderness, meningismus, lymphadenopathy Respiratory exam: Present: normal lung sounds bilaterally. Absent: respiratory distress, wheezes, rales, rhonchi, stridor Cardiovascular Exam: Present: regular rate, normal rhythm, normal heart sounds. Absent: systolic murmur, diastolic murmur, rubs, gallop, clicks GI/Abdominal exam: Present: soft, normal bowel sounds. Absent: distended, tenderness, guarding, rebound, rigid Back exam: Present: normal inspection Neurological exam: Present: altered Course Vital Signs 04/07/25 04/07/25 04/07/25 18:12 19:01 21:30 Pulse Rate 89 82 Respiratory 16 17 Rate Blood Pressure 98/92 135/82 O2 Sat by Pulse 92 L 90 L 96 Oximetry Medical Decision Making - Medical Decision Making Was pt. sent in by a medical professional or institution (, PA, LIVESTOCK BUYER, urgent care, hospital, or care home...) When possible be specific @ -No Did you speak to anyone other than the patient for history (EMS, parent, family, police, friend...)? What history was obtained from this source @ -Spoke with EMS and for history Did you review nursing and triage notes (agree or disagree)? Why? @ -I reviewed and agree with nursing and triage notes Were old charts reviewed (outside hosp., previous admission, EMS record, old EKG, old radiological studies, urgent care reports/EKG's, care home records)? Report findings @ -No old charts were reviewed Differential Diagnosis (chest pain, altered mental status, abdominal pain women, abdominal pain men, vaginal bleeding, weakness, fever, dyspnea, syncope, headache, dizziness, GI bleed, back pain, seizure, CVA, palpatations, mental health, musculoskeletal)? @ -Differential Altered Mental Status: Hypoglycemia, DKA, hypercapnia, ETOH, overdose, CO poisoning, trauma, myxedema coma, HTN encephalopathy, infection, encephalitis, psychosis, intercranial hemorrhage, hepatic encephalopathy, meningitis, CVA, this is not meant to be an all-inclusive list EKG interpreted by me (3pts min.). @ -Yes and demonstrates sinus rhythm with a rate of 92. MN interval 154. QRS 76. QTc of 432. No acute ST segment elevations or depressions X-rays interpreted by me (1pt min.). @ -Yes which demonstrates no acute process CT interpreted by me (1pt min.). @ -Yes which demonstrates no acute process U/S interpreted by me (1pt. min.). @ -None done What testing was considered but not performed or refused? (CT, X-rays, U/S, labs)? Why? @ -Urinalysis however patient is refusing straight cath for most of his evaluation in the emergency department What meds were considered but not given or refused? Why? @ -None Did you discuss the management of the patient with other professionals (professionals i.e. , PA, LIVESTOCK BUYER, lab, RT, psych nurse, perinatal social worker, jewel gauger, teacher, pharmaceutical officer, immigration case manager)? Give summary @ -Spoke with Dr. Oliveros for admission Was smoking cessation discussed for >3mins.? @ -No Was critical care preformed (if so, how long)? @ -No Were there social determinants of health that impacted care today? How? (Homelessness, low income, unemployed, alcoholism, drug addiction, transportation, low edu. Level, literacy, decrease access to med. care, half-way, rehab)? @ -No Was there de-escalation of care discussed even if they declined (Discuss DNR or withdrawal of care, Hospice)? DNR status @ -No What co-morbidities impacted this encounter? (DM, HTN, Smoking, COPD, CAD, Cancer, CVA, ARF, Chemo, Hep., AIDS, mental health diagnosis, sleep apnea, morbid obesity)? @ -Chronic back pain Was patient admitted / discharged? Hospital course, mention meds given and route, prescriptions, significant lab abnormalities, going to OR and other pertinent info. @ -Upon arrival patient seen and evaluated in bed 7. Thorough history and physical exam was performed. IV access was established and laboratory studies are conducted. Patient does have an LIGIA with a creatinine of 2.2. Previous was listed as 1.2. Patient is attempting to give a urine sample at this time however he does have significant difficulty. We do request to straight cath him multiple times however patient refuses up until 2217. Chest x-ray is performed which demonstrates no acute cardiopulmonary disease. CT brain demonstrates remote small injuries redemonstrated with encephalomalacia. I did recommend admission for which the patient was agreeable. Spoke with Dr. Christianson - still awaiting urine results at time of admission. Undiagnosed new problem with uncertain prognosis? @ -No Drug Therapy requiring intensive monitoring for toxicity (Heparin, Nitro, Insulin, Cardizem)? @ -No Were any procedures done? @ -No Diagnosis/symptom? @ -Acute encephalopathy, possible medication overdose, LIGIA Acute, or Chronic, or Acute on Chronic? @ -Acute Uncomplicated (without systemic symptoms) or Complicated (systemic symptoms)? @ -Complicated Side effects of treatment? @ -No Exacerbation, Progression, or Severe Exacerbation? @ -No Poses a threat to life or bodily function? How? (Chest pain, USA, PA, pneumonia, PE, COPD, DKA, ARF, appy, cholecystitis, CVA, Diverticulitis, Homicidal, Suicidal, threat to staff... and all critical care pts) @ -No - Lab Data Result diagrams: 04/07/25 18:00 04/07/25 18:00 Lab Results 04/07/25 04/07/25 04/07/25 Range/Units 18:00 18:00 18:00 WBC 12.68 H (4.50-10.00) 10*3/uL RBC 4.06 L (4.40-5.60) 10*6/uL Hgb 12.6 L (13.0-17.0) g/dL Hct 38.4 L (39.6-50.0) % MCV 94.6 (80.0-97.0) fL MCH 31.0 (27.0-32.0) pg MCHC 32.8 (32.0-37.0) g/dL Plt Count 95 L (140-440) 10*3/uL MPV 10.3 (9.5-12.2) fL Immature Gran % (Auto) 0.6 % Neutrophils % 92.1 % Lymphocytes % 2.3 % Monocytes % 4.3 % Eosinophils % 0.0 % Basophils % 0.7 % Immature Gran # 0.07 H (0.00-0.04) 10*3/uL Neutrophils # 11.68 H (1.80-7.70) 10*3/uL Lymphocytes # 0.29 L (0.90-5.00) 10*3/uL Monocytes # 0.55 (0.20-1.00) 10*3/uL Eosinophils # 0.00 L (0.04-0.35) 10*3/uL Basophils # 0.09 (0.00-0.10) 10*3/uL Manual Slide Review Performed PT 12.1 (10.0-12.5) sec INR 1.1 (<1.2) APTT 22.5 (22.0-30.0) sec Sodium 139 (137-145) mmol/L Potassium 4.3 (3.5-5.1) mmol/L Chloride 108 H (98-107) mmol/L Carbon Dioxide 20 L (22-30) mmol/L Anion Gap 11 mmol/L BUN 37 H (9-20) mg/dL Creatinine 2.21 H (0.66-1.25) mg/dL Est GFR (CKD-EPI)AfAm 32 (>60 ml/min/1.73 sqM) Est GFR (CKD-EPI)NonAf 27 (>60 ml/min/1.73 sqM) Glucose 123 H (74-99) mg/dL POC Glucose (mg/dL) (70-110) mg/dL POC Glu Coroner'S Juror ID Calcium 7.8 L (8.4-10.2) mg/dL Total Bilirubin 1.6 H (0.2-1.3) mg/dL AST 31 (17-59) U/L ALT 17 (4-49) U/L Alkaline Phosphatase 95 (38-126) U/L Ammonia (<30) umol/L Troponin I (0.000-0.034) ng/mL Total Protein 5.4 L (6.3-8.2) g/dL Albumin 2.9 L (3.5-5.0) g/dL Urine Color Urine Appearance (Clear) Urine pH (5.0-8.0) Ur Specific [place] (1.001-1.035) Urine Protein (Negative) Urine Glucose (UA) (Negative) Urine Ketones (Negative) Urine Blood (Negative) Urine Nitrite (Negative) Urine Bilirubin (Negative) Urine Urobilinogen (<2.0) mg/dL Ur Leukocyte Esterase (Negative) Urine RBC (0-5) /hpf Urine WBC (0-5) /hpf Urine WBC Clumps (None) /hpf Ur Squamous Epith Cells (0-4) /hpf Urine Bacteria (None) /hpf Urine Mucus (None) /hpf Salicylates <1.0 mg/dL Urine Opiates Screen (NotDetected) Ur Oxycodone Screen (NotDetected) Urine Methadone Screen (NotDetected) Acetaminophen <10.0 ug/mL Ur Barbiturates Screen (NotDetected) U Tricyclic Antidepress (NotDetected) Ur Phencyclidine Scrn (NotDetected) Ur Amphetamines Screen (NotDetected) U Methamphetamines Scrn (NotDetected) U Benzodiazepines Scrn (NotDetected) Urine Cocaine Screen (NotDetected) U Marijuana (THC) Screen (NotDetected) Serum Alcohol <10 mg/dL 04/07/25 04/07/25 04/07/25 Range/Units 18:00 18:00 22:04 WBC (4.50-10.00) 10*3/uL RBC (4.40-5.60) 10*6/uL Hgb (13.0-17.0) g/dL Hct (39.6-50.0) % MCV (80.0-97.0) fL MCH (27.0-32.0) pg MCHC (32.0-37.0) g/dL Plt Count (140-440) 10*3/uL MPV (9.5-12.2) fL Immature Gran % (Auto) % Neutrophils % % Lymphocytes % % Monocytes % % Eosinophils % % Basophils % % Immature Gran # (0.00-0.04) 10*3/uL Neutrophils # (1.80-7.70) 10*3/uL Lymphocytes # (0.90-5.00) 10*3/uL Monocytes # (0.20-1.00) 10*3/uL Eosinophils # (0.04-0.35) 10*3/uL Basophils # (0.00-0.10) 10*3/uL Manual Slide Review PT (10.0-12.5) sec INR (<1.2) APTT (22.0-30.0) sec Sodium (137-145) mmol/L Potassium (3.5-5.1) mmol/L Chloride (98-107) mmol/L Carbon Dioxide (22-30) mmol/L Anion Gap mmol/L BUN (9-20) mg/dL Creatinine (0.66-1.25) mg/dL Est GFR (CKD-EPI)AfAm (>60 ml/min/1.73 sqM) Est GFR (CKD-EPI)NonAf (>60 ml/min/1.73 sqM) Glucose (74-99) mg/dL POC Glucose (mg/dL) 111 H (70-110) mg/dL POC Glu Coroner'S Juror ID Adrianna Cadet Calcium (8.4-10.2) mg/dL Total Bilirubin (0.2-1.3) mg/dL AST (17-59) U/L ALT (4-49) U/L Alkaline Phosphatase (38-126) U/L Ammonia <9 (<30) umol/L Troponin I 0.022 (0.000-0.034) ng/mL Total Protein (6.3-8.2) g/dL Albumin (3.5-5.0) g/dL Urine Color Urine Appearance (Clear) Urine pH (5.0-8.0) Ur Specific [place] (1.001-1.035) Urine Protein (Negative) Urine Glucose (UA) (Negative) Urine Ketones (Negative) Urine Blood (Negative) Urine Nitrite (Negative) Urine Bilirubin (Negative) Urine Urobilinogen (<2.0) mg/dL Ur Leukocyte Esterase (Negative) Urine RBC (0-5) /hpf Urine WBC (0-5) /hpf Urine WBC Clumps (None) /hpf Ur Squamous Epith Cells (0-4) /hpf Urine Bacteria (None) /hpf Urine Mucus (None) /hpf Salicylates mg/dL Urine Opiates Screen (NotDetected) Ur Oxycodone Screen (NotDetected) Urine Methadone Screen (NotDetected) Acetaminophen ug/mL Ur Barbiturates Screen (NotDetected) U Tricyclic Antidepress (NotDetected) Ur Phencyclidine Scrn (NotDetected) Ur Amphetamines Screen (NotDetected) U Methamphetamines Scrn (NotDetected) U Benzodiazepines Scrn (NotDetected) Urine Cocaine Screen (NotDetected) U Marijuana (THC) Screen (NotDetected) Serum Alcohol mg/dL 04/07/25 Range/Units 22:18 WBC (4.50-10.00) 10*3/uL RBC (4.40-5.60) 10*6/uL Hgb (13.0-17.0) g/dL Hct (39.6-50.0) % MCV (80.0-97.0) fL MCH (27.0-32.0) pg MCHC (32.0-37.0) g/dL Plt Count (140-440) 10*3/uL MPV (9.5-12.2) fL Immature Gran % (Auto) % Neutrophils % % Lymphocytes % % Monocytes % % Eosinophils % % Basophils % % Immature Gran # (0.00-0.04) 10*3/uL Neutrophils # (1.80-7.70) 10*3/uL Lymphocytes # (0.90-5.00) 10*3/uL Monocytes # (0.20-1.00) 10*3/uL Eosinophils # (0.04-0.35) 10*3/uL Basophils # (0.00-0.10) 10*3/uL Manual Slide Review PT (10.0-12.5) sec INR (<1.2) APTT (22.0-30.0) sec Sodium (137-145) mmol/L Potassium (3.5-5.1) mmol/L Chloride (98-107) mmol/L Carbon Dioxide (22-30) mmol/L Anion Gap mmol/L BUN (9-20) mg/dL Creatinine (0.66-1.25) mg/dL Est GFR (CKD-EPI)AfAm (>60 ml/min/1.73 sqM) Est GFR (CKD-EPI)NonAf (>60 ml/min/1.73 sqM) Glucose (74-99) mg/dL POC Glucose (mg/dL) (70-110) mg/dL POC Glu Coroner'S Juror ID Calcium (8.4-10.2) mg/dL Total Bilirubin (0.2-1.3) mg/dL AST (17-59) U/L ALT (4-49) U/L Alkaline Phosphatase (38-126) U/L Ammonia (<30) umol/L Troponin I (0.000-0.034) ng/mL Total Protein (6.3-8.2) g/dL Albumin (3.5-5.0) g/dL Urine Color Light Red Urine Appearance Turbid (Clear) Urine pH 6.0 (5.0-8.0) Ur Specific [place] 1.017 (1.001-1.035) Urine Protein 2+ H (Negative) Urine Glucose (UA) 2+ H (Negative) Urine Ketones Negative (Negative) Urine Blood Large H (Negative) Urine Nitrite Negative (Negative) Urine Bilirubin Negative (Negative) Urine Urobilinogen <2.0 (<2.0) mg/dL Ur Leukocyte Esterase Large H (Negative) Urine RBC 172 H (0-5) /hpf Urine WBC >182 H (0-5) /hpf Urine WBC Clumps Many H (None) /hpf Ur Squamous Epith Cells 2 (0-4) /hpf Urine Bacteria Many H (None) /hpf Urine Mucus Few H (None) /hpf Salicylates mg/dL Urine Opiates Screen Detected H (NotDetected) Ur Oxycodone Screen Not Detected (NotDetected) Urine Methadone Screen Not Detected (NotDetected) Acetaminophen ug/mL Ur Barbiturates Screen Not Detected (NotDetected) U Tricyclic Antidepress Not Detected (NotDetected) Ur Phencyclidine Scrn Not Detected (NotDetected) Ur Amphetamines Screen Not Detected (NotDetected) U Methamphetamines Scrn Not Detected (NotDetected) U Benzodiazepines Scrn Not Detected (NotDetected) Urine Cocaine Screen Not Detected (NotDetected) U Marijuana (THC) Screen Detected H (NotDetected) Serum Alcohol mg/dL Disposition Clinical Impression: Acute encephalopathy, LIGIA (acute kidney injury) Disposition: ADMITTED IP TO THIS HOSP Condition: Stable Is patient prescribed a controlled substance at d/c from ED?: No Time of Disposition: 22:17 Decision to Admit Reason: Admit from EC Decision Date: 04/07/25 Decision Time: 22:17
[2025-04-07] MEDS ORDERED: NALOXONE 0.4 MG/ML 1 ML VIAL IV PRN (22:17)
[2025-04-07 22:34] LABS: Bacteria,Urine Many /hpf; Barbiturate Screen,Urine Not Detected (NotDetected); Benzodiazepines Screen,Urine Not Detected (NotDetected); Bilirubin,Urine Negative (Negative); Blood,Urine Large (Negative); Color,Urine Light Red; Glucose,Urine (UA) 2+ (Negative); Ketones,Urine Negative (Negative); Leukocyte Esterase,Urine Large (Negative); Mucus,Urine Few /hpf; Nitrite,Urine Negative (Negative); Opiate Screen,Urine Detected (NotDetected); Oxycodone Screen, Urine Not Detected (NotDetected); PH, Urine 6.0 (5.0-8.0); Phencyclidine Screen,Urine Not Detected (NotDetected); Protein,Urine 2+ (Negative); RBC,Urine 172 /hpf (0-5); Specific Gravity,Urine 1.017 (1.001-1.035); Squamous Epithelial Cell,Urine 2 /hpf (0-4); Tricyclic Antidepressant,Urine Not Detected (NotDetected); Urn Cannabinoid Scrn Detected (NotDetected); Urobilinogen,Urine <2.0 mg/dL (<2.0); WBC,Urine >182 /hpf (0-5)
[2025-04-07] MEDS: SODIUM CHLORIDE 0.9% 1,000 ML IV SCH (23:24)
--- NOTE | 2025-04-08 02:01 | CT ---
EXAM: CT Abdomen and Pelvis Without Intravenous Contrast CLINICAL HISTORY: UTI with LIGIA TECHNIQUE: Axial computed tomography images of the abdomen and pelvis without intravenous contrast. Coronal and sagittal reconstructions are performed. CTDI is 17 mGy and DLP is 1015.4 mGy-cm. This CT exam was performed using one or more of the following dose reduction techniques: automated exposure control, adjustment of the mA and/or kV according to patient size, and/or use of iterative reconstruction technique. COMPARISON: 11/04/22 FINDINGS: Lung bases: Moderate amount of bibasilar atelectasis. ABDOMEN: Liver: Subcentimeter rounded hypodensities in the liver, too small to characterize, unchanged. Gallbladder and bile ducts: No acute findings. Pancreas: Unremarkable. No ductal dilation. Spleen: Unremarkable. No splenomegaly. Adrenals: Unremarkable. No mass. Kidneys and ureters: Small amount of symmetrical perinephric stranding, unchanged. Mild left hydroureter. Stomach and bowel: Moderate colonic diverticulosis. 3rd portion duodenal diverticula are again noted. No obstruction. No mucosal thickening. PELVIS: Appendix: No findings to suggest acute appendicitis. Bladder: Unremarkable. No stones. Reproductive: No acute findings. ABDOMEN and PELVIS: Intraperitoneal space: Unremarkable. No free air. No significant fluid collection. Retroperitoneal space: Small amount of left retroperitoneal stranding standing to left inguinal canal, similar on the prior study, may represent scarring. Bones/joints: L4- S2 fusion hardware cause large amount of streak artifact which decreases sensitivity on associated images. Associated laminectomies. Moderate compression defect at L1 with vertebroplasty. Osteopenia. Moderate degenerative changes. Old left rib fracture with fusion. Soft tissues: Small fat containing left inguinal hernia is unchanged. Vasculature: Moderate-large amount of atherosclerotic calcifications. 3.1 cm infrarenal fusiform abdominal aortic aneurysm at the level of L4, unchanged. Lymph nodes: Unremarkable. No enlarged lymph nodes. IMPRESSION: Mild left hydroureter. No stone identified in the collecting system.
[2025-04-08 05:46] LABS: Basophils # (A) 0.06 10*3/uL (0.00-0.10); Basophils % (A) 0.6 %; Eosinophils # (A) 0.03 10*3/uL (0.04-0.35); Eosinophils % (A) 0.3 %; HCT 39.1 % (39.6-50.0); HGB 12.9 g/dL (13.0-17.0); Lymphocytes # (A) 0.57 10*3/uL (0.90-5.00); Lymphocytes % (A) 5.3 %; MCH 31.1 pg (27.0-32.0); MCHC 33.0 g/dL (32.0-37.0); MCV 94.2 fL (80.0-97.0); Monocytes # (A) 0.29 10*3/uL (0.20-1.00); Monocytes % (A) 2.7 %; Neutrophils # (A) 9.65 10*3/uL (1.80-7.70); Neutrophils % (A) 90.0 %; Platelet Count 101 10*3/uL (140-440); RBC 4.15 10*6/uL (4.40-5.60); RDW 15.3 % (11.5-14.5); WBC 10.72 10*3/uL (4.50-10.00)
--- NOTE | 2025-04-08 05:52 | P.HPIM ---
History of Present Illness H&P Date: 04/08/25 Patient is a 79 y/o male with PMHx of DMII, COPD, CAD, Low back pain, HTN here for altered mental status. He is a very poor historian and is not able to provide comprehensive history. Denies any burning or blood in urine, fevers, chills, N/V, chest pain. Family Hx: Unable to provide d/t mentation Allergies: None reported HRB: Quit tobacco years ago, drinks alcohol 1x/week Brain CT: Negative for acute intracranial process CXR: Negative Labs: WBC: 12.6 HGB: 12.6 Ca: 7.8 (corrected calcium 8.3) Albumin: 2.9 BUN: 37 Cr: 2.21 UDS: positive for opiates and THC Vitals: 89bpm, 16RR, 98/92, 90% O2 Review of systems: Pertinent positives and negatives as discussed in HPI, a complete review of s ystems was performed and all other systems are negative. Physical examination: Vital signs reviewed General: non toxic, no distress, appears at stated age, normal weight Derm: no unusual rashes/lesions, warm Head: atraumatic, normocephalic, symmetric Eyes: EOMI, anicteric sclera, pupils equal round reactive to light ENT: Nose and ears atraumatic Neck: No cervical lymphadenopathy, trachea midline, supple Mouth: no lip lesion, mucus membranes moist Cardiovascular: S1S2 reg, no murmur, positive dorsalis pedis pulse bilateral, no edema Lungs: CTA bilateral, no rhonchi, no rales, no accessory muscle use Abdominal: soft, nontender to palpation, no guarding Ext: muscle strength 5 out of 5 in all 4 extremities grossly, no gross muscle atrophy Neuro: CN II-XI grossly intact, no gross focal neuro deficits, AOx2 Psych: Alert, oriented to person, place, and time Assessment/Plan: 79 y/o male presenting with altered mental status likely 2/2 medication induced encephalopathy #Medication Induced Encephalopathy - Pt has altered mental status and positive for opiates on UDS. ER physician indicates that he very drowsy initially but woke up after given a dose of Narcan Plan: -Aspiration and fall precautions -Hold all pain meds -Ammonia level #LIGIA # Acute cystitis Pt has slightly elevated WBC count and Plan: -CT ABD Pelvis -IVF NS @ 125ml/hr -Rocephin #COPD. Acute, not in exacerbation Pt is satting low 90s, no wheezing, crackles Plan: -O2 as needed # Type II diabetes Plan: -A1c -LDSS DVT prophylaxis: [Heparin 5000 BID] The patient is admitted with an anticipated [greater] than 2 midnight stay for evaluation of [medication induced encephalopathy] CODE STATUS: [FULL CODE] Discussed with: Dr Christianson Anticipated discharge place: Home Attestation: Patient seen and examined with medical research scientist. Agree with above assessment and plan. Patient is a poor historian and most of the history was obtained from the ED physician. 79-year-old male patient with a past medical history of COPD and diabetes who presents to the ED for questionable overdose. His called EMS with reports that patient was complaining of back pain and he recently took medications that were prescribed by Dr. Bettie Amato. It was reported that the additional medications that he took were celecoxib, gabapentin and methocarbamol. Patient was not able to product picker the prescription until today which he took them. There was questionable overdose but after giving Narcan and asking the patient he denies intentional medication overdose. No reports of fall or head injury. Patient was given 2 mg of nasal Narcan and his mentation improved. Upon interviewing the patient, he was still confused. He does have UTI and LIGIA . CT of the abdomen and pelvis showing mild left hydroureter but no stone identified in the collecting system. Impression acute metabolic encephalopathy due to medication induced, kidney injury and UTI . Time spent : 55 min Past Medical History Past Medical History: Cancer, COPD, Diabetes Mellitus, Eye Disorder, GERD/Reflux, Hearing Disorder / Deafness, Hyperlipidemia, Hypertension, Osteoarthritis (OA), Pneumonia, Prostate Disorder, Sleep Apnea/CPAP/BIPAP, Vascular Disorder Additional Past Medical History / Comment(s): NIDDM type II, neuropathy bilateral hands/feet, diabetic retinopathy, MAGAN with Cpap, skin cancer with removals, diverticular disease, RLS, BPH, bilateral ear infections/tinnitis/[place] uses hearing aides, Cataracts History of Any Multi-Drug Resistant Organisms: None Reported Past Surgical History: Back Surgery, Hernia Repair, Orthopedic Surgery Additional Past Surgical History / Comment(s): Cervical fusion, L5 back surgery, umbilical hernia, colonoscopies, vasectomy, circumcism. Past Anesthesia/Blood Transfusion Reactions: No Reported Reaction Past Psychological History: No Psychological Hx Reported Smoking Status: Former smoker Past Alcohol Use History: None Reported Past Drug Use History: None Reported - Past Family History Father Family Medical History: Unable to Obtain Mother Family Medical History: No Reported History Additional Family Medical History / Comment(s): Mother lived into her 90s. Medications and Allergies Home Medications Medication Instructions Recorded Confirmed Type Albuterol Inhaler [Ventolin Hfa 1 puff INHALATION RT-Q4H PRN 09/23/21 09/26/24 History Inhaler] Fluticasone Propion/Salmeterol 1 puff INHALATION RT-BID 09/23/21 09/26/24 History [Fluticasone-Salmeterol 250-50] Latanoprost [Xalatan 0.005%] 1 drop BOTH EYES HS 09/23/21 09/26/24 History Tamsulosin [Flomax] 0.8 mg PO DAILY 09/23/21 09/26/24 History Tiotropium 2.5 Mcg/Puff [Spiriva 2 puff INHALATION RT-DAILY 09/23/21 09/26/24 History Respimat 2.5 Mcg] Aspirin EC [Ecotrin Low Dose] 81 mg PO DAILY 11/04/22 09/26/24 History Carbamide Peroxide [Debrox Otic] 5 - 10 drops BOTH EARS BID PRN 11/04/22 09/26/24 History Finasteride [Proscar] 5 mg PO DAILY 11/04/22 09/26/24 History Omeprazole 20 mg PO DAILY 11/04/22 09/26/24 History Simvastatin [Zocor] 20 mg PO HS 11/04/22 09/26/24 History Zinc Gluconate [Zinc] 50 mg PO DAILY 11/04/22 09/26/24 History metFORMIN HCL [Glucophage] 850 mg PO DAILY 11/04/22 09/26/24 History rOPINIRole HCL [Requip] 3 mg PO HS 11/04/22 09/26/24 History Ascorbic Acid [Vitamin C] 750 mg PO DAILY 06/22/24 09/26/24 History Cholecalciferol (Vitamin D3) 1,250 mcg PO DAILY 06/22/24 09/26/24 History [Vitamin D3 (1250 Mcg = 50,000 Iu)] Ciprofloxacin-Hc Otic Susp [Cipro 3 drops BOTH EARS BID 06/22/24 09/26/24 History Hc Otic Suspension] York-3/Dha/Epa/Fish Oil [Fish Oil 500 mg PO DAILY 06/22/24 09/26/24 History 1,000 mg Softgel] carvediloL [Coreg] 25 mg PO BID 06/22/24 09/26/24 History methocarbamoL [Robaxin] 500 mg PO TID PRN 30 Days #90 tab 09/26/24 Rx Allergies Allergy/AdvReac Type Severity Reaction Status Date / Time iodine Allergy Anaphylaxis Verified 04/07/25 18:10 Physical Exam Vitals: Vital Signs Pulse Resp BP Pulse Ox 04/07/25 21:30 82 17 135/82 96 04/07/25 19:01 89 16 98/92 90 L 04/07/25 18:12 92 L Intake and Output 04/07/25 04/07/25 04/08/25 14:59 22:59 06:59 Output Total 100 Balance -100 Output: Urine 100 Uretheral (Cedeno) 100 Other: Weight 102.058 kg Results CBC & Chem 7: 04/07/25 18:00 04/07/25 18:00 Labs: Abnormal Lab Results - Last 24 Hours (Table) 04/07/25 04/07/25 04/07/25 Range/Units 18:00 18:00 22:04 WBC 12.68 H (4.50-10.00) 10*3/uL RBC 4.06 L (4.40-5.60) 10*6/uL Hgb 12.6 L (13.0-17.0) g/dL Hct 38.4 L (39.6-50.0) % Plt Count 95 L (140-440) 10*3/uL Immature Gran # 0.07 H (0.00-0.04) 10*3/uL Neutrophils # 11.68 H (1.80-7.70) 10*3/uL Lymphocytes # 0.29 L (0.90-5.00) 10*3/uL Eosinophils # 0.00 L (0.04-0.35) 10*3/uL Chloride 108 H (98-107) mmol/L Carbon Dioxide 20 L (22-30) mmol/L BUN 37 H (9-20) mg/dL Creatinine 2.21 H (0.66-1.25) mg/dL Glucose 123 H (74-99) mg/dL POC Glucose (mg/dL) 111 H (70-110) mg/dL Calcium 7.8 L (8.4-10.2) mg/dL Total Bilirubin 1.6 H (0.2-1.3) mg/dL Total Protein 5.4 L (6.3-8.2) g/dL Albumin 2.9 L (3.5-5.0) g/dL Urine Protein (Negative) Urine Glucose (UA) (Negative) Urine Blood (Negative) Ur Leukocyte Esterase (Negative) Urine RBC (0-5) /hpf Urine WBC (0-5) /hpf Urine WBC Clumps (None) /hpf Urine Bacteria (None) /hpf Urine Mucus (None) /hpf Urine Opiates Screen (NotDetected) U Marijuana (THC) Screen (NotDetected) 04/07/25 Range/Units 22:18 WBC (4.50-10.00) 10*3/uL RBC (4.40-5.60) 10*6/uL Hgb (13.0-17.0) g/dL Hct (39.6-50.0) % Plt Count (140-440) 10*3/uL Immature Gran # (0.00-0.04) 10*3/uL Neutrophils # (1.80-7.70) 10*3/uL Lymphocytes # (0.90-5.00) 10*3/uL Eosinophils # (0.04-0.35) 10*3/uL Chloride (98-107) mmol/L Carbon Dioxide (22-30) mmol/L BUN (9-20) mg/dL Creatinine (0.66-1.25) mg/dL Glucose (74-99) mg/dL POC Glucose (mg/dL) (70-110) mg/dL Calcium (8.4-10.2) mg/dL Total Bilirubin (0.2-1.3) mg/dL Total Protein (6.3-8.2) g/dL Albumin (3.5-5.0) g/dL Urine Protein 2+ H (Negative) Urine Glucose (UA) 2+ H (Negative) Urine Blood Large H (Negative) Ur Leukocyte Esterase Large H (Negative) Urine RBC 172 H (0-5) /hpf Urine WBC >182 H (0-5) /hpf Urine WBC Clumps Many H (None) /hpf Urine Bacteria Many H (None) /hpf Urine Mucus Few H (None) /hpf Urine Opiates Screen Detected H (NotDetected) U Marijuana (THC) Screen Detected H (NotDetected)
[2025-04-08 06:04] LABS: African American GFR (CKD) 26 (>60 ml/min/1.73 sqM); Anion Gap 11 mmol/L; Blood Urea Nitrogen 46 mg/dL (9-20); Calcium 7.7 mg/dL (8.4-10.2); Carbon Dioxide 21 mmol/L (22-30); Chloride 107 mmol/L (98-107); Glucose 103 mg/dL (74-99); Non-African American GFR(CKD) 23 (>60 ml/min/1.73 sqM); Potassium 3.9 mmol/L (3.5-5.1); Sodium 139 mmol/L (137-145)
--- NOTE | 2025-04-08 08:03 | US ---
EXAMINATION TYPE: US kidneys/renal and bladder DATE OF EXAM: 04/08/2025 COMPARISON: CT 04/08/2025 CLINICAL INDICATION: Male, 79 years old with history of LIGIA; Patient denies any signs, symptoms, or r elevant history. Hx HTN, DM, high cholesterol, and recent potential drug overdose. TECHNIQUE: Grayscale imaging of the bilateral kidneys and urinary bladder: FINDINGS: EXAM MEASUREMENTS: Right Kidney: 12.2 x 7.0 x 6.3 cm Left Kidney: 12.4 x 6.3 x 5.3 cm Post Void Residual Volume: NA mL Right Kidney: wnl, no evidence for hydronephrosis, mass or renal calculus. Left Kidney: wnl, no evidence for hydronephrosis, mass or renal calculus. Bladder: Not fully distended, WNL as visualized Bilateral Jets seen: Not able to assess/ not seen within 5 minutes Normal Post Void Residual: NA There is no evidence for hydronephrosis at this point in time. No nephrolithiasis is seen. No bk s are identified. The urinary bladder is anechoic. IMPRESSION: No evidence for obstructive uropathy. [facility], , 04/08/2025 8:01 AM
[2025-04-08] MEDS: HEPARIN SODIUM,PORCINE 5,000 UNIT/ML 1 ML VIAL SQ SCH (09:32)
[2025-04-08] MEDS ORDERED: ALBUTEROL NEBULIZED 2.5 MG/3 ML INHALATION PRN (11:08)
[2025-04-08] MEDS ORDERED: DEXTROSE 50% SYRINGE 50 ML IVP PRN ×2 (11:15)
[2025-04-08 12:04] LABS: Glucose,Whole Blood 184 mg/dL (70-110)
[2025-04-08] MEDS: INSULIN LISPRO (HumaLOG) 100 UNIT/ML 10 mL VL SQ SCH (12:53)
[2025-04-08] MEDS: GABAPENTIN 100 MG CAP PO SCH (15:38)
[2025-04-08 16:03] LABS: Glucose,Whole Blood 146 mg/dL (70-110)
[2025-04-08] MEDS: SYMBICORT 80-4.5 MCG INHALER INHALATION SCH (18:53)
[2025-04-08 20:49] LABS: Glucose,Whole Blood 116 mg/dL (70-110)
[2025-04-08] MEDS: LATANOPROST 0.005% OPHTH DROPS 2.5 ML BTL BOTH EYES SCH (21:20)
[2025-04-09 05:56] LABS: Basophils # (A) 0.05 10*3/uL (0.00-0.10); Basophils % (A) 0.6 %; Eosinophils # (A) 0.21 10*3/uL (0.04-0.35); Eosinophils % (A) 2.5 %; HCT 37.7 % (39.6-50.0); HGB 12.3 g/dL (13.0-17.0); Immature Platelet Fraction 2.7 % (1.1-6.1); Lymphocytes # (A) 0.79 10*3/uL (0.90-5.00); Lymphocytes % (A) 9.5 %; MCH 30.7 pg (27.0-32.0); MCHC 32.6 g/dL (32.0-37.0); MCV 94.0 fL (80.0-97.0); Monocytes # (A) 1.30 10*3/uL (0.20-1.00); Monocytes % (A) 15.7 %; Neutrophils # (A) 5.89 10*3/uL (1.80-7.70); Neutrophils % (A) 71.0 %; RBC 4.01 10*6/uL (4.40-5.60); RDW 15.0 % (11.5-14.5); WBC 8.30 10*3/uL (4.50-10.00)
[2025-04-09 06:03] LABS: Glucose,Whole Blood 120 mg/dL (70-110)
[2025-04-09 06:04] LABS: African American GFR (CKD) 22 (>60 ml/min/1.73 sqM); Anion Gap 11 mmol/L; Blood Urea Nitrogen 58 mg/dL (9-20); Calcium 8.1 mg/dL (8.4-10.2); Carbon Dioxide 18 mmol/L (22-30); Chloride 109 mmol/L (98-107); Glucose 121 mg/dL (74-99); Non-African American GFR(CKD) 19 (>60 ml/min/1.73 sqM); Potassium 3.7 mmol/L (3.5-5.1); Sodium 138 mmol/L (137-145)
[2025-04-09 06:59] LABS: Platelet Count 89 10*3/uL (140-440)
[2025-04-09] MEDS: FINASTERIDE 5 MG TAB PO SCH (08:05)
[2025-04-09] MEDS: ASPIRIN 81 MG PO SCH (08:05)
[2025-04-09] MEDS: DEXTROSE 5% IN WATER 1,000 ML with SODIUM BICARB (1 MEQ/ML) 150 ML IV SCH (09:22)
[2025-04-09] MEDS: TIOTROPIUM 2.5 MCG INHALER INHALATION SCH (09:34)
--- NOTE | 2025-04-09 10:43 | P.NPCON ---
History of Present Illness - Reason for Consult acute renal failure - History of Present Illness Reason for consultation: Acute kidney injury History of present illness: Patient is a 79-year-old male seen in renal consultation for acute kidney injury. Patient's baseline creatinine is near 1 from October 2023. Creatinine was 2.2 on admission and is up to 3.02 today. He is currently receiving IV fluids. Patient came to the hospital after he sustained a fall and states the family could not pick him up and called EMS. Patient also states he was recently given pain meds which she was taking but is not sure of the name. It is noted in the chart the patient was given oxycodone and Valium. He denies nausea or vomiting. Does admit to loose bowel movements. He has been voiding. Denies gross hematuria or dysuria. Additionally there is also Jardiance and Celebrex noted on his home medication list. Again it is unclear exactly what he was taking. Blood pressure was in the systolic 90s on admission but is now improved. Patient was receiving normal saline and is now changed to bicarb drip. He does have history of diabetes. Denies history of coronary artery disease. Vital signs are stable. General: No acute distress. HEENT: Head exam is unremarkable. LUNGS: No audible rhonchi or wheezes. HEART: Rate and Rhythm are regular. ABDOMEN: Nontender. EXTREMITITES: No edema. Past Medical History Past Medical History: Cancer, COPD, Diabetes Mellitus, Eye Disorder, GERD/Reflux, Hearing Disorder / Deafness, Hyperlipidemia, Hypertension, Osteoarthritis (OA), Pneumonia, Prostate Disorder, Sleep Apnea/CPAP/BIPAP, Vascular Disorder Additional Past Medical History / Comment(s): NIDDM type II, neuropathy bilateral hands/feet, diabetic retinopathy, MAGAN with Cpap, skin cancer with removals, diverticular disease, RLS, BPH, bilateral ear infections/tinnitis/WILTON uses hearing aides, Cataracts History of Any Multi-Drug Resistant Organisms: None Reported Past Surgical History: Back Surgery, Hernia Repair, Orthopedic Surgery Additional Past Surgical History / Comment(s): Cervical fusion, L5 back surgery, umbilical hernia, colonoscopies, vasectomy, circumcism, cataract surgery Past Anesthesia/Blood Transfusion Reactions: No Reported Reaction Past Psychological History: No Psychological Hx Reported Additional Psychological History / Comment(s): Pt resides with his spouse, who is also ill. Pt uses a cane to ambulate. He normally can drive. He has a nebulizer. Smoking Status: Former smoker Past Alcohol Use History: None Reported Additional Past Alcohol Use History / Comment(s): Pt started smoking as a teen and quit in 2007. Past Drug Use History: None Reported - Past Family History Father Family Medical History: Unable to Obtain Mother Family Medical History: No Reported History Additional Family Medical History / Comment(s): Mother lived into her 90s. Medications and Allergies Home Medications Medication Instructions Recorded Confirmed Type Albuterol Inhaler [Ventolin Hfa 1 puff INHALATION RT-Q4H PRN 09/23/21 04/08/25 History Inhaler] Fluticasone Propion/Salmeterol 1 puff INHALATION RT-BID 09/23/21 04/08/25 History [Fluticasone-Salmeterol 250-50] Latanoprost [Xalatan 0.005%] 1 drop BOTH EYES HS 09/23/21 04/08/25 History Tiotropium 2.5 Mcg/Puff [Spiriva 2 puff INHALATION RT-DAILY 09/23/21 04/08/25 History Respimat 2.5 Mcg] Aspirin EC [Ecotrin Low Dose] 81 mg PO DAILY 11/04/22 04/08/25 History Carbamide Peroxide [Debrox Otic] 5 - 10 drops BOTH EARS BID PRN 11/04/22 04/08/25 History Finasteride [Proscar] 5 mg PO DAILY 11/04/22 04/08/25 History Omeprazole 20 mg PO DAILY 11/04/22 04/08/25 History metFORMIN HCL [Glucophage] 850 mg PO DAILY 11/04/22 04/08/25 History rOPINIRole HCL [Requip] 3 mg PO HS 11/04/22 04/08/25 History carvediloL [Coreg] 25 mg PO BID-W/MEALS 06/22/24 04/08/25 History Alfuzosin HCl [Alfuzosin HCl ER] 10 mg PO DAILY 04/08/25 04/08/25 History Celecoxib [CeleBREX] 200 mg PO BID 04/08/25 04/08/25 History Cholecalciferol (Vitamin D3) 50 mcg PO DAILY 04/08/25 04/08/25 History [Vitamin D3 (50 Mcg = 2000 Iu) Chew Tab] Empagliflozin [Jardiance] 10 mg PO DAILY 04/08/25 04/08/25 History Gabapentin [Neurontin] 300 mg PO TID 04/08/25 04/08/25 History Ketoconazole 2% Shampoo [Nizoral] 1 applic TOPICAL DAILY PRN 04/08/25 04/08/25 History Lidocaine 5% Patch [Lidoderm] 1 patch TOPICAL DAILY PRN 04/08/25 04/08/25 H istory Sildenafil Citrate [Viagra] 100 mg PO DAILY PRN 04/08/25 04/08/25 History methocarbamoL [Robaxin-750] 750 mg PO TID PRN 04/08/25 04/08/25 History Allergies Allergy/AdvReac Type Severity Reaction Status Date / Time iodine Allergy Anaphylaxis Verified 04/08/25 09:41 Physical Exam Vitals: Vital Signs Temp Pulse Pulse Resp BP BP Pulse Ox 04/09/25 07:10 97.9 F 87 16 144/75 95 04/09/25 01:05 97.5 F L 84 17 129/79 93 L 04/08/25 19:05 97.6 F 75 19 129/79 96 04/08/25 14:43 16 04/08/25 14:06 98.0 F 76 18 136/76 100 04/08/25 11:27 81 18 112/68 94 L Intake and Output 04/08/25 04/09/25 04/09/25 22:59 06:59 14:59 Other: Voiding Method Toilet Toilet # Voids 2 Results - Lab Results Most recent lab results Calcium 8.1 mg/dL (8.4-10.2) L 04/09/25 05:22 04/09/25 05:22 04/09/25 05:22 Assessment and Plan Plan: Assessment: 1. Acute kidney injury secondary to ATN secondary to hypotension and further worsen with the use of NSAIDs and SGLT2 inhibitor. Creatinine 2.2 on admission and is 3.02 today. Baseline creatinine near 1. No hydronephrosis noted on imaging. 2. Metabolic acidosis secondary to acute kidney injury, IV fluids and use of metformin. 3. Status post fall. 4. Diabetes mellitus. 5. UTI on antibiotics. 6. Opioid overdose. Plan: Maintain bicarb drip. Increase rate to 100 cc an hour. Check bladder scan to rule out urinary retention. Strict I's and O's. Follow-up cultures. Urine eosinophils slightly positive at 1%. This will be repeated. Check CK level. Avoid nephrotoxins. Thank you for the consultation. I will continue to follow the patient with you during his hospital stay.
[2025-04-09 11:30] LABS: Glucose,Whole Blood 139 mg/dL (70-110)
[2025-04-09] MEDS: HYDROCORTISONE SUPPOSITORY 25 MG SUPP RECTAL SCH (11:50)
--- NOTE | 2025-04-09 13:22 | P.PN ---
Subjective Progress Note Date: 04/09/25 Subjective: Patient seen and examined at bedside. No acute events overnight. Pertinent positives and negatives as discussed above, a complete review of systems was performed and all other systems are negative. Vitals Signs Reviewed. General: Nontoxic, no distress, appears at stated age Derm: Warm, dry Head: Atraumatic, normocephalic, symmetric Eyes: EOMI, no lid lag, anicteric sclera Mouth: No lip lesion, mucus membranes moist Cardiovascular: S1S2 reg, no murmur Lungs: CTA bilateral, no rhonchi, no rales, no accessory muscle use Abdominal: Soft, nontender to palpation, no guarding, no appreciable organomegaly Ext: No gross muscle atrophy, no edema, no contractures Neuro: CN II-XI grossly intact, no focal neuro deficits Psych: Alert, oriented, appropriate affect Data Reviewed Today: Pertinent Labs: WBC 8.3, hemoglobin 12.3, bicarb 18, creatinine 3.02, CK4 56, A1c 6.2 Imaging: No new imaging Assessment and Plan: Active: Acute encephalopathy, metabolic versus medication induced Uremia Nonoliguric acute kidney injury Mild rhabdomyolysis Metabolic acidosis Urinary tract infection - Continue to hold opiates - Gabapentin has been decreased to 100 3 times daily - Nephrology note reviewed, agree with sodium bicarb drip. 100 cc an hour - Avoid hypotension - Urine eosinophils was 1, repeat pending - Continue IV ceftriaxone 1 g every 24 hours - Urine cultures pending External hemorrhoids - Anusol 25 mg rectal daily Type 2 diabetes - Sliding scale insulin, monitor for hypoglycemia Chronic: COPD, not in exacerbation BPH DVT ppx: Subcu heparin Code status: Full code Anticipated discharge place: Pending clinical course Anticipated discharge time: Pending clinical course Objective - Vital Signs Vital signs: Vital Signs Temp 97.9 F 04/09/25 07:10 Pulse 87 04/09/25 07:10 Resp 16 04/09/25 07:10 BP 144/75 04/09/25 07:10 Pulse Ox 95 04/09/25 07:10 FiO2 Intake & Output 04/08/25 04/09/25 04/09/25 18:59 06:59 18:59 Weight 102.058 kg Other: Voiding Method Toilet Toilet # Voids 2 - Labs CBC & Chem 7: 04/09/25 05:22 04/09/25 05:22 Labs: Abnormal Lab Results - Last 24 Hours (Table) 04/08/25 04/08/25 04/09/25 Range/Units 16:01 20:48 05:22 RBC (4.40-5.60) 10*6/uL Hgb (13.0-17.0) g/dL Hct (39.6-50.0) % RDW (11.5-14.5) % Plt Count (140-440) 10*3/uL Immature Gran # (0.00-0.04) 10*3/uL Lymphocytes # (0.90-5.00) 10*3/uL Monocytes # (0.20-1.00) 10*3/uL Chloride (98-107) mmol/L Carbon Dioxide (22-30) mmol/L BUN (9-20) mg/dL Creatinine (0.66-1.25) mg/dL Glucose (74-99) mg/dL POC Glucose (mg/dL) 146 H 116 H (70-110) mg/dL Hemoglobin A1c 6.2 H (<=6.0) % Calcium (8.4-10.2) mg/dL Creatine Kinase (55-170) U/L 04/09/25 04/09/25 04/09/25 Range/Units 05:22 05:22 05:22 RBC 4.01 L (4.40-5.60) 10*6/uL Hgb 12.3 L (13.0-17.0) g/dL Hct 37.7 L (39.6-50.0) % RDW 15.0 H (11.5-14.5) % Plt Count 89 L (140-440) 10*3/uL Immature Gran # 0.06 H (0.00-0.04) 10*3/uL Lymphocytes # 0.79 L (0.90-5.00) 10*3/uL Monocytes # 1.30 H (0.20-1.00) 10*3/uL Chloride 109 H (98-107) mmol/L Carbon Dioxide 18 L (22-30) mmol/L BUN 58 H (9-20) mg/dL Creatinine 3.02 H (0.66-1.25) mg/dL Glucose 121 H (74-99) mg/dL POC Glucose (mg/dL) (70-110) mg/dL Hemoglobin A1c (<=6.0) % Calcium 8.1 L (8.4-10.2) mg/dL Creatine Kinase 456 H (55-170) U/L 04/09/25 04/09/25 Range/Units 06:02 11:29 RBC (4.40-5.60) 10*6/uL Hgb (13.0-17.0) g/dL Hct (39.6-50.0) % RDW (11.5-14.5) % Plt Count (140-440) 10*3/uL Immature Gran # (0.00-0.04) 10*3/uL Lymphocytes # (0.90-5.00) 10*3/uL Monocytes # (0.20-1.00) 10*3/uL Chloride (98-107) mmol/L Carbon Dioxide (22-30) mmol/L BUN (9-20) mg/dL Creatinine (0.66-1.25) mg/dL Glucose (74-99) mg/dL POC Glucose (mg/dL) 120 H 139 H (70-110) mg/dL Hemoglobin A1c (<=6.0) % Calcium (8.4-10.2) mg/dL Creatine Kinase (55-170) U/L
[2025-04-09 16:31] LABS: Glucose,Whole Blood 187 mg/dL (70-110)
[2025-04-09 20:24] LABS: Glucose,Whole Blood 135 mg/dL (70-110)
[2025-04-10 06:06] LABS: Glucose,Whole Blood 135 mg/dL (70-110)
[2025-04-10 07:48] LABS: Basophils # (A) 0.05 10*3/uL (0.00-0.10); Basophils % (A) 0.6 %; Eosinophils # (A) 0.13 10*3/uL (0.04-0.35); Eosinophils % (A) 1.7 %; HCT 40.3 % (39.6-50.0); HGB 13.3 g/dL (13.0-17.0); Lymphocytes # (A) 0.98 10*3/uL (0.90-5.00); Lymphocytes % (A) 12.7 %; MCH 30.8 pg (27.0-32.0); MCHC 33.0 g/dL (32.0-37.0); MCV 93.3 fL (80.0-97.0); Monocytes # (A) 0.73 10*3/uL (0.20-1.00); Monocytes % (A) 9.4 %; Neutrophils # (A) 5.81 10*3/uL (1.80-7.70); Neutrophils % (A) 75.2 %; Platelet Count 112 10*3/uL (140-440); RBC 4.32 10*6/uL (4.40-5.60); RDW 14.9 % (11.5-14.5); WBC 7.73 10*3/uL (4.50-10.00)
[2025-04-10] MEDS: TAMSULOSIN 0.4 MG CAP.ER.24H PO SCH (07:55)
[2025-04-10 08:38] LABS: Magnesium 2.3 mg/dL (1.5-2.4)
[2025-04-10 11:09] LABS: Glucose,Whole Blood 152 mg/dL (70-110)
--- NOTE | 2025-04-10 11:28 | P.PN ---
Subjective Patient is seen for follow-up for acute kidney injury. Patient states that he is feeling slightly short of breath. Currently maintained on IV bicarb Labs are pending from today. Good urine output noted. Patient has a Cedeno catheter. Objective - Vital Signs Vital signs: Vital Signs Temp 97.7 F 04/10/25 07:54 Pulse 80 04/10/25 07:54 Resp 18 04/10/25 07:54 BP 126/58 04/10/25 08:53 Pulse Ox 94 L 04/10/25 09:58 FiO2 Intake & Output 04/09/25 04/10/25 04/10/25 18:59 06:59 18:59 Output Total 3200 1875 Balance -3200 -1875 Output: Urine 3200 1875 Other: Voiding Method Toilet Indwelling Catheter - Exam Patient is awake, comfortable, no acute distress Examination of the heart S1 and S2 Examination of the lungs bilateral breath sounds are heard Decreased breath sounds at the bases Abdomen is soft nontender Examination of lower extremities shows trace edema bilaterally Patient is able to move all 4 extremities. - Labs CBC & Chem 7: 04/10/25 07:35 04/09/25 05:22 Labs: Abnormal Lab Results - Last 24 Hours (Table) 04/09/25 04/09/25 04/09/25 Range/Units 11:29 16:30 20:23 RBC (4.40-5.60) 10*6/uL RDW (11.5-14.5) % Plt Count (140-440) 10*3/uL POC Glucose (mg/dL) 139 H 187 H 135 H (70-110) mg/dL 04/10/25 04/10/25 04/10/25 Range/Units 06:04 07:35 11:09 RBC 4.32 L (4.40-5.60) 10*6/uL RDW 14.9 H (11.5-14.5) % Plt Count 112 L (140-440) 10*3/uL POC Glucose (mg/dL) 135 H 152 H (70-110) mg/dL Microbiology - Last 24 Hours (Table) 04/09/25 01:15 Urine Culture - Final Urine,Voided Assessment and Plan Assessment: 1. Acute kidney injury secondary to ATN secondary to hypotension and further worsened with the use of NSAIDs and SGLT2 inhibitor. Creatinine 2.2 on admission and 3.02 yesterday. Baseline creatinine near 1. No hydronephrosis noted on imaging. 2. Metabolic acidosis secondary to acute kidney injury, IV fluids and use of metformin. 3. Status post fall. 4. Diabetes mellitus. 5. UTI on antibiotics. 6. Opioid overdose. Plan: Check chest x-ray Follow-up on labs from today to decide about IV fluids Continue to avoid nephrotoxic agents Repeat labs in a.m.
[2025-04-10 12:24] LABS: ALT 19 U/L (4-49); AST 25 U/L (17-59); African American GFR (CKD) 29 (>60 ml/min/1.73 sqM); Albumin 2.7 g/dL (3.5-5.0); Albumin/Globulin Ratio 1.2; Alkaline Phosphatase 108 U/L (38-126); Anion Gap 9 mmol/L; Blood Urea Nitrogen 60 mg/dL (9-20); Calcium 7.5 mg/dL (8.4-10.2); Carbon Dioxide 31 mmol/L (22-30); Chloride 99 mmol/L (98-107); Globulin 2.3 g/dL; Glucose 393 mg/dL (74-99); Non-African American GFR(CKD) 25 (>60 ml/min/1.73 sqM); Potassium 3.3 mmol/L (3.5-5.1); Sodium 139 mmol/L (137-145); Total Protein 5.0 g/dL (6.3-8.2)
--- NOTE | 2025-04-10 13:33 | XR ---
EXAMINATION TYPE: XR chest 1V portable DATE OF EXAM: 04/10/2025 1:22 PM COMPARISON: Chest radiographs from 04/07/2025 CLINICAL INDICATION: Male, 79 years old with history of SOB; TECHNIQUE: XR chest 1V portable Frontal view of the chest. FINDINGS: Lungs/Pleura: There is no evidence of pleural effusion, focal consolidation, or pneumothorax. Pulmonary vascularity: Pulmonary vascular congestion. Heart/mediastinum: Cardiomediastinal silhouette is enlarged. Musculoskeletal: No acute osseous pathology. IMPRESSION: Cardiomegaly and mild pulmonary vascular congestion. Correlate with BNP for congestive heart failure. [facility], , 04/10/2025 1:30 PM
[2025-04-10] MEDS: POTASSIUM CHLORIDE ER 20 MEQ TAB.ER PO STA (13:46)
--- NOTE | 2025-04-10 16:01 | P.PN ---
Subjective Progress Note Date: 04/10/25 Hospital Course: Patient is a 79 y/o male with PMHx of DMII, COPD, CAD, Low back pain, HTN here for altered mental status. He is a very poor historian and is not able to provide comprehensive history in the ED. in the ED, patient was given Narcan and woke up confused. Initial significant labs of WBC of 12.6 , hemoglobin 12.6, BUN 37, creatinine 2.21 and urine drug screen positive for opiates and THC. Head CT unremarkable, chest x-ray unremarkable, CT abdomen pelvis shows mild left hydroureter but no stone identified, ultrasound of abdomen showed no evidence for obstructive uropathy. Admitted to inpatient service, where antibiotics were completed for 5 days. Nephrology was consulted and patient was placed on bicarb drip. Repeat chest x-ray on 04 10 shows cardiomegaly and mild pulmonary vascular congestion. Subjective: Patient seen and examined at bedside. No acute events overnight. Patient states he is having some shortness of breath but denies cough, fever, chills. Patient has no other complaints at this time. Pertinent positives and negatives as discussed above, a complete review of systems was performed and all other systems are negative. Vitals: Signs Reviewed Physical Exam: General: nontoxic, no distress, appears at stated age Derm: warm, dry, intact Head: atraumatic, normocephalic, symmetric Eyes: EOMI, anicteric sclera Mouth: no lip lesion, mucus membranes moist Cardiovascular: S1 S2 reg, no murmur, rubs, or gallops Lungs: CTA bilateral, no rhonchi, no rales, no accessory muscle use Abdominal: soft, non-tender to palpation, no appreciable organomegaly Extremities: no gross muscle atrophy, 1+ pitting edema bilaterally Neuro: Alert, Oriented, CNII-XII grossly intact, gait normal Psych: well appearing, appropriate affect Data Received Today: Pertinent Labs: WBC 7.73, hemoglobin 13.3, bicarb 31, BUN 60, creatinine 2.36 Imaging: CXRcardiomegaly and mild pulmonary vascular congestion. Assessment and Plan: Active: Acute encephalopathy, metabolic versus medication induced Uremia Nonoliguric acute kidney injury Mild rhabdomyolysis Metabolic acidosis Urinary tract infection - Continue to hold opiates - Continue Gabapentin 100mg 3 times daily - Nephrology following, will review labs and decide on continuing the bicarb d rip. Drip currently at 100ml/h - Avoid hypotension - Urine eosinophils was 1, repeat pending - Continue IV ceftriaxone 1 g every 24 hours (day 4), plan to complete course of 5 days. - Urine cultures shows no growth at 18 External hemorrhoids - Continue Anusol 25 mg rectal daily Hypokalemia - Continue to monitor - Replenished with 40 mEq today Type 2 diabetes - Sliding scale insulin, monitor for hypoglycemia Chronic: COPD, not in exacerbation BPH DVT ppx: SubQ heparin Code status: Full code Anticipated discharge place: Pending clinical course Anticipated discharge time: Pending clinical course Sierra Rooney DO PGY-1 IM Dictation was produced using [employer] dictation software. please excuse any grammatical, word or spelling errors. I have seen and evaluated the patient today. Discussed with the resident and agree with the residents finding and plan as documented in the resident's note. Changes highlighted in blue font. Objective - Vital Signs Vital signs: Vital Signs Temp 97.5 F L 04/10/25 14:00 Pulse 82 04/10/25 14:00 Resp 18 04/10/25 14:00 BP 162/74 04/10/25 14:00 Pulse Ox 93 L 04/10/25 14:00 FiO2 Intake & Output 04/09/25 04/10/25 04/10/25 18:59 06:59 18:59 Output Total 3200 1875 Balance -3200 -1875 Output: Urine 3200 1875 Other: Voiding Method Toilet Indwelling Catheter Toilet - Labs CBC & Chem 7: 04/10/25 07:35 04/10/25 03:52 Labs: Abnormal Lab Results - Last 24 Hours (Table) 04/09/25 04/09/25 04/10/25 Range/Units 16:30 20:23 03:52 RBC (4.40-5.60) 10*6/uL RDW (11.5-14.5) % Plt Count (140-440) 10*3/uL Potassium 3.3 L (3.5-5.1) mmol/L Carbon Dioxide 31 H (22-30) mmol/L BUN 60 H (9-20) mg/dL Creatinine 2.36 H (0.66-1.25) mg/dL Glucose 393 H (74-99) mg/dL POC Glucose (mg/dL) 187 H 135 H (70-110) mg/dL Calcium 7.5 L (8.4-10.2) mg/dL Total Protein 5.0 L (6.3-8.2) g/dL Albumin 2.7 L (3.5-5.0) g/dL 04/10/25 04/10/25 04/10/25 Range/Units 06:04 07:35 11:09 RBC 4.32 L (4.40-5.60) 10*6/uL RDW 14.9 H (11.5-14.5) % Plt Count 112 L (140-440) 10*3/uL Potassium (3.5-5.1) mmol/L Carbon Dioxide (22-30) mmol/L BUN (9-20) mg/dL Creatinine (0.66-1.25) mg/dL Glucose (74-99) mg/dL POC Glucose (mg/dL) 135 H 152 H (70-110) mg/dL Calcium (8.4-10.2) mg/dL Total Protein (6.3-8.2) g/dL Albumin (3.5-5.0) g/dL Microbiology - Last 24 Hours (Table) 04/09/25 01:15 Urine Culture - Final Urine,Voided
[2025-04-10 17:21] LABS: Glucose,Whole Blood 144 mg/dL (70-110)
[2025-04-10 21:11] LABS: Glucose,Whole Blood 134 mg/dL (70-110)
[2025-04-10] MEDS: FUROSEMIDE 10 MG/ML 4 ML VIAL IV STA (22:19)
[2025-04-11 05:14] LABS: Basophils # (A) 0.05 10*3/uL (0.00-0.10); Basophils % (A) 0.6 %; Eosinophils # (A) 0.16 10*3/uL (0.04-0.35); Eosinophils % (A) 2.0 %; HCT 40.0 % (39.6-50.0); HGB 13.3 g/dL (13.0-17.0); Lymphocytes # (A) 1.25 10*3/uL (0.90-5.00); Lymphocytes % (A) 15.3 %; MCH 31.0 pg (27.0-32.0); MCHC 33.3 g/dL (32.0-37.0); MCV 93.2 fL (80.0-97.0); Monocytes # (A) 1.01 10*3/uL (0.20-1.00); Monocytes % (A) 12.3 %; Neutrophils # (A) 5.67 10*3/uL (1.80-7.70); Neutrophils % (A) 69.3 %; Platelet Count 121 10*3/uL (140-440); RBC 4.29 10*6/uL (4.40-5.60); RDW 14.9 % (11.5-14.5); WBC 8.18 10*3/uL (4.50-10.00)
[2025-04-11 05:27] LABS: ALT 19 U/L (4-49); AST 23 U/L (17-59); African American GFR (CKD) 28 (>60 ml/min/1.73 sqM); Albumin 3.0 g/dL (3.5-5.0); Albumin/Globulin Ratio 1.2; Alkaline Phosphatase 125 U/L (38-126); Anion Gap 10 mmol/L; Blood Urea Nitrogen 62 mg/dL (9-20); Calcium 8.6 mg/dL (8.4-10.2); Carbon Dioxide 22 mmol/L (22-30); Chloride 107 mmol/L (98-107); Globulin 2.5 g/dL; Glucose 114 mg/dL (74-99); Non-African American GFR(CKD) 24 (>60 ml/min/1.73 sqM); Potassium 3.9 mmol/L (3.5-5.1); Sodium 139 mmol/L (137-145); Total Protein 5.5 g/dL (6.3-8.2)
[2025-04-11 06:29] LABS: Glucose,Whole Blood 110 mg/dL (70-110)
[2025-04-11 11:46] LABS: Glucose,Whole Blood 154 mg/dL (70-110)
--- NOTE | 2025-04-11 13:28 | P.PN ---
Subjective Patient is seen for follow-up for acute kidney injury. Feels better today No significant complaints Status post IV Lasix yesterday and discontinuation of IV fluids. Good urine output noted. 5.0L for 24 hours patient has a Cedeno catheter. Objective - Vital Signs Vital signs: Vital Signs Temp 97.6 F 04/11/25 08:00 Pulse 76 04/11/25 11:57 Resp 16 04/11/25 11:57 BP 129/62 04/11/25 08:00 Pulse Ox 91 L 04/11/25 08:00 FiO2 Intake & Output 04/10/25 04/11/25 04/11/25 18:59 06:59 18:59 Intake Total 350 Output Total 3100 Balance -3100 350 Intake: Oral 350 Output: Urine 3100 Other: Voiding Method Toilet Indwelling Catheter Indwelling Catheter - Exam Patient is awake, comfortable, no acute distress Examination of the heart S1 and S2 Examination of the lungs bilateral breath sounds are heard Decreased breath sounds at the bases Abdomen is soft nontender Examination of lower extremities shows 1+ edema bilaterally Patient is able to move all 4 extremities. - Labs CBC & Chem 7: 04/11/25 03:48 04/11/25 03:48 Labs: Abnormal Lab Results - Last 24 Hours (Table) 04/10/25 04/10/25 04/11/25 Range/Units 17:19 21:10 03:48 RBC 4.29 L (4.40-5.60) 10*6/uL RDW 14.9 H (11.5-14.5) % Plt Count 121 L (140-440) 10*3/uL Monocytes # 1.01 H (0.20-1.00) 10*3/uL BUN (9-20) mg/dL Creatinine (0.66-1.25) mg/dL Glucose (74-99) mg/dL POC Glucose (mg/dL) 144 H 134 H (70-110) mg/dL Total Protein (6.3-8.2) g/dL Albumin (3.5-5.0) g/dL 04/11/25 04/11/25 Range/Units 03:48 11:39 RBC (4.40-5.60) 10*6/uL RDW (11.5-14.5) % Plt Count (140-440) 10*3/uL Monocytes # (0.20-1.00) 10*3/uL BUN 62 H (9-20) mg/dL Creatinine 2.45 H (0.66-1.25) mg/dL Glucose 114 H (74-99) mg/dL POC Glucose (mg/dL) 154 H (70-110) mg/dL Total Protein 5.5 L (6.3-8.2) g/dL Albumin 3.0 L (3.5-5.0) g/dL Microbiology - Last 24 Hours (Table) 04/09/25 01:15 Urine Culture - Final Urine,Voided Assessment and Plan Assessment: 1. Acute kidney injury secondary to ATN secondary to hypotension and further worsened with the use of NSAIDs and SGLT2 inhibitor. Creatinine increased from 2.2 on admission to 3.0 and is down to 2.45 today. Baseline creatinine near 1. No hydronephrosis noted on imaging. 2. Metabolic acidosis secondary to acute kidney injury, IV fluids and use of metformin. 3. Status post fall. 4. Diabetes mellitus. 5. UTI on antibiotics. 6. Opioid overdose. 7. Volume overload Plan: Continue off of IV fluids Continue to avoid nephrotoxic agents Repeat labs in a.m. Continue with Cedeno catheter Continue to avoid Celebrex post discharge Continue to hold metformin upon discharge
--- NOTE | 2025-04-11 15:23 | P.PN ---
Subjective Progress Note Date: 04/11/25 Hospital Course: Patient is a 79 y/o male with PMHx of DMII, COPD, CAD, Low back pain, HTN here for altered mental status. He is a very poor historian and is not able to provide comprehensive history in the ED. in the ED, patient was given Narcan and woke up confused. Initial significant labs of WBC of 12.6 , hemoglobin 12.6, BUN 37, creatinine 2.21 and urine drug screen positive for opiates and THC. Head CT unremarkable, chest x-ray unremarkable, CT abdomen pelvis shows mild left hydroureter but no stone identified, ultrasound of abdomen showed no evidence for obstructive uropathy. Admitted to inpatient service, where antibiotics were completed for 5 days. Repeat chest x-ray on 04/10 shows cardiomegaly and mild pulmonary vascular congestion. Nephrology was consulted regarding patient's renal function and patient was placed on bicarb drip which was later discontinued. Subjective: Patient seen and examined at bedside. Overnight patient received 0.2 clonidine for systolic blood pressure ranging from the 160s to 180s. This morning patient has no new complaints. He still complains of back pain which is chronic. He denies chest pain, headache, fevers, nausea, vomiting, abdominal pain. Pertinent positives and negatives as discussed above, a complete review of systems was performed and all other systems are negative. Vitals: Signs Reviewed Physical Exam: General: nontoxic, no distress, appears at stated age Derm: warm, dry, intact Head: atraumatic, normocephalic, symmetric Eyes: EOMI, anicteric sclera Mouth: no lip lesion, mucus membranes moist Cardiovascular: S1 S2 reg, no murmur, rubs, or gallops Lungs: CTA bilateral, no rhonchi, no rales, no accessory muscle use Abdominal: soft, non-tender to palpation, no appreciable organomegaly Extremities: no gross muscle atrophy, 1+ pitting edema bilaterally Neuro: Alert, Oriented, CNII-XII grossly intact, gait normal Psych: well appearing, appropriate affect Data Received Today: Pertinent Labs: WBC 8.18, hemoglobin 13.3, bicarb 22, BUN 62, creatinine 2.45 Imaging: None today Assessment and Plan: Active: Acute encephalopathy, metabolic versus medication induced Uremia Nonoliguric acute kidney injury Mild rhabdomyolysis Metabolic acidosis Urinary tract infection - Urine cultures shows no growth at 18 hours - Urine eosinophils was 1 - Continue to hold opiates - Continue Gabapentin 100mg 3 times daily - Nephrology following, discontinued bicarb drip. Will discuss use of steroids. - Avoid hypotension - Completed cefrtiaxone 1 g q24h today for a total of 5 days. External hemorrhoids - Continue Anusol 25 mg rectal daily Hypokalemia - resolved - Continue to monitor and replenish as needed. Type 2 diabetes - Sliding scale insulin, monitor for hypoglycemia Chronic: COPD, not in exacerbation BPH DVT ppx: SubQ heparin Code status: Full code Anticipated discharge place: Likely home Anticipated discharge time: Pending clinical course Sierra Rooney, DO PGY-1 IM Dictation was produced using [employer] dictation software. please excuse any grammatical, word or spelling errors. I have seen and evaluated the patient today. Discussed with the resident and agree with the residents finding and plan as documented in the resident's note. Changes highlighted in blue font. Objective - Vital Signs Vital signs: Vital Signs Temp 97.6 F 04/11/25 13:34 Pulse 66 04/11/25 13:34 Resp 18 04/11/25 13:34 BP 120/68 04/11/25 13:34 Pulse Ox 91 L 04/11/25 08:00 FiO2 Intake & Output 04/10/25 04/11/25 04/11/25 18:59 06:59 18:59 Intake Total 350 Output Total 3100 Balance -3100 350 Intake: Oral 350 Output: Urine 3100 Other: Voiding Method Toilet Indwelling Catheter Indwelling Catheter - Labs CBC & Chem 7: 04/11/25 03:48 04/11/25 03:48 Labs: Abnormal Lab Results - Last 24 Hours (Table) 04/10/25 04/10/25 04/11/25 Range/Units 17:19 21:10 03:48 RBC 4.29 L (4.40-5.60) 10*6/uL RDW 14.9 H (11.5-14.5) % Plt Count 121 L (140-440) 10*3/uL Monocytes # 1.01 H (0.20-1.00) 10*3/uL BUN (9-20) mg/dL Creatinine (0.66-1.25) mg/dL Glucose (74-99) mg/dL POC Glucose (mg/dL) 144 H 134 H (70-110) mg/dL Total Protein (6.3-8.2) g/dL Albumin (3.5-5.0) g/dL 04/11/25 04/11/25 Range/Units 03:48 11:39 RBC (4.40-5.60) 10*6/uL RDW (11.5-14.5) % Plt Count (140-440) 10*3/uL Monocytes # (0.20-1.00) 10*3/uL BUN 62 H (9-20) mg/dL Creatinine 2.45 H (0.66-1.25) mg/dL Glucose 114 H (74-99) mg/dL POC Glucose (mg/dL) 154 H (70-110) mg/dL Total Protein 5.5 L (6.3-8.2) g/dL Albumin 3.0 L (3.5-5.0) g/dL
[2025-04-11 16:08] LABS: Glucose,Whole Blood 142 mg/dL (70-110)
[2025-04-11 20:26] LABS: Glucose,Whole Blood 177 mg/dL (70-110)
[2025-04-12 04:15] LABS: Basophils # (A) 0.06 10*3/uL (0.00-0.10); Basophils % (A) 0.7 %; Eosinophils # (A) 0.29 10*3/uL (0.04-0.35); Eosinophils % (A) 3.6 %; HCT 39.5 % (39.6-50.0); HGB 13.1 g/dL (13.0-17.0); Lymphocytes # (A) 1.38 10*3/uL (0.90-5.00); Lymphocytes % (A) 17.0 %; MCH 30.9 pg (27.0-32.0); MCHC 33.2 g/dL (32.0-37.0); MCV 93.2 fL (80.0-97.0); Monocytes # (A) 0.98 10*3/uL (0.20-1.00); Monocytes % (A) 12.0 %; Neutrophils # (A) 5.33 10*3/uL (1.80-7.70); Neutrophils % (A) 65.5 %; Platelet Count 122 10*3/uL (140-440); RBC 4.24 10*6/uL (4.40-5.60); RDW 15.0 % (11.5-14.5); WBC 8.14 10*3/uL (4.50-10.00)
[2025-04-12 04:28] LABS: African American GFR (CKD) 31 (>60 ml/min/1.73 sqM); Anion Gap 9 mmol/L; Blood Urea Nitrogen 60 mg/dL (9-20); Calcium 8.6 mg/dL (8.4-10.2); Carbon Dioxide 24 mmol/L (22-30); Chloride 106 mmol/L (98-107); Glucose 111 mg/dL (74-99); Non-African American GFR(CKD) 26 (>60 ml/min/1.73 sqM); Potassium 4.1 mmol/L (3.5-5.1); Sodium 139 mmol/L (137-145)
[2025-04-12 06:21] LABS: Glucose,Whole Blood 120 mg/dL (70-110)
[2025-04-12 10:25] LABS: Bacteria,Urine Rare /hpf; Bilirubin,Urine Negative (Negative); Blood,Urine Large (Negative); Color,Urine Light Yellow; Glucose,Urine (UA) Negative (Negative); Ketones,Urine Negative (Negative); Leukocyte Esterase,Urine Small (Negative); Mucus,Urine Rare /hpf; Nitrite,Urine Negative (Negative); PH, Urine 5.0 (5.0-8.0); Protein,Urine Trace (Negative); RBC,Urine >182 /hpf (0-5); Specific Gravity,Urine 1.010 (1.001-1.035); Urobilinogen,Urine <2.0 mg/dL (<2.0); WBC,Urine 6 /hpf (0-5)
[2025-04-12 12:06] LABS: Glucose,Whole Blood 103 mg/dL (70-110)
--- NOTE | 2025-04-12 12:31 | P.PN ---
Subjective Patient is seen for follow-up for acute kidney injury. Feels better today No significant complaints Off of IV fluids. Serum creatinine at 2.2 today Urine output at 2.5 L for 24 hours. Objective - Vital Signs Vital signs: Vital Signs Temp 97.8 F 04/12/25 08:00 Pulse 68 04/12/25 08:00 Resp 20 04/12/25 10:07 BP 143/71 04/12/25 08:00 Pulse Ox 94 L 04/12/25 08:00 FiO2 Intake & Output 04/11/25 04/12/25 04/12/25 18:59 06:59 18:59 Intake Total 530 500 Output Total 950 1600 400 Balance -420 -1600 100 Intake: Oral 530 500 Output: Urine 950 1600 400 Uretheral (Cedeno) 900 Other: Voiding Method Indwelling Catheter Indwelling Catheter Indwelling Catheter # Voids 1 # Bowel Movements 1 1 - Exam Patient is awake, comfortable, no acute distress Examination of the heart S1 and S2 Examination of the lungs bilateral breath sounds are heard Decreased breath sounds at the bases Abdomen is soft nontender Examination of lower extremities shows trace edema bilaterally Patient is able to move all 4 extremities. - Labs CBC & Chem 7: 04/12/25 03:47 04/12/25 03:47 Labs: Abnormal Lab Results - Last 24 Hours (Table) 04/11/25 04/11/25 04/12/25 Range/Units 16:06 20:25 03:47 RBC 4.24 L (4.40-5.60) 10*6/uL Hct 39.5 L (39.6-50.0) % RDW 15.0 H (11.5-14.5) % Plt Count 122 L (140-440) 10*3/uL MPV 9.4 L (9.5-12.2) fL Immature Gran # 0.10 H (0.00-0.04) 10*3/uL BUN (9-20) mg/dL Creatinine (0.66-1.25) mg/dL Glucose (74-99) mg/dL POC Glucose (mg/dL) 142 H 177 H (70-110) mg/dL Urine Protein (Negative) Urine Blood (Negative) Ur Leukocyte Esterase (Negative) Urine RBC (0-5) /hpf Urine WBC (0-5) /hpf Urine Bacteria (None) /hpf Urine Mucus (None) /hpf 07/09/25 07/09/25 07/09/25 Range/Units 03:47 06:18 10:18 RBC (4.40-5.60) 10*6/uL Hct (39.6-50.0) % RDW (11.5-14.5) % Plt Count (140-440) 10*3/uL MPV (9.5-12.2) fL Immature Gran # (0.00-0.04) 10*3/uL BUN 60 H (9-20) mg/dL Creatinine 2.27 H (0.66-1.25) mg/dL Glucose 111 H (74-99) mg/dL POC Glucose (mg/dL) 120 H (70-110) mg/dL Urine Protein Trace H (Negative) Urine Blood Large H (Negative) Ur Leukocyte Esterase Small H (Negative) Urine RBC >182 H (0-5) /hpf Urine WBC 6 H (0-5) /hpf Urine Bacteria Rare H (None) /hpf Urine Mucus Rare H (None) /hpf Assessment and Plan Assessment: 1. Acute kidney injury secondary to ATN secondary to hypotension and further worsened with the use of NSAIDs and SGLT2 inhibitor. Possible acute interstitial nephritis. UA showed 2+ protein and large blood creatinine increased from 2.2 on admission to 3.0 and is down to 2.2 today. Baseline creatinine near 1. No hydronephrosis noted on imaging. 2. Metabolic acidosis secondary to acute kidney injury, IV fluids and use of metformin. 3. Status post fall. 4. Diabetes mellitus. 5. UTI on antibiotics. 6. Opioid overdose. 7. Volume overload Plan: Repeat UA and if improved we can hold off on steroids otherwise patient will benefit from a short trial of prednisone for possible underlying acute interstitial nephritis. Continue off of IV fluids Continue to avoid nephrotoxic agents Continue to avoid Celebrex post discharge Continue to hold metformin upon discharge Follow-up as outpatient in 1 week with repeat labs as outpatient.
[2025-04-12 14:36] VITALS: BP 152/84; PULSE 80; RESP 17; TEMP 97.6
--- NOTE | 2025-04-12 16:51 | P.DS ---
Providers Date of admission: 04/07/25 22:20 Expected date of discharge: 04/12/25 Attending physician: Marcelino Christianson MD Consults: 04/08/25 11:12 Consult Physician Routine Consulting Provider: Tomas Parekh Consult Reason/Comments: wyatt Do you want consulting provider notified?: Yes Primary care physician: [facility] Course: Discharge Diagnosis: Acute encephalopathy, metabolic versus medication induced Uremia Nonoliguric acute kidney injury Mild rhabdomyolysis Metabolic acidosis Urinary tract infection External hemorrhoids Hypokalemia - resolved Type 2 diabetes COPD, not in exacerbation BPH Hospital Course: Patient is a 79 y/o male with PMHx of DMII, COPD, CAD, Low back pain, HTN here for altered mental status. He is a very poor historian and is not able to provide comprehensive history in the ED. in the ED, patient was given Narcan and woke up confused. Initial significant labs of WBC of 12.6 , hemoglobin 12.6, BUN 37, creatinine 2.21 and urine drug screen positive for opiates and THC. Head CT unremarkable, chest x-ray unremarkable, CT abdomen pelvis shows mild left hydroureter but no stone identified, ultrasound of abdomen showed no evidence for obstructive uropathy. Urinalysis showed protein, glucose, blood, leukocyte esterase (large), many RBCs, many WBCs, many bacteria. Pt admitted to inpatient service, where antibiotics were completed for 5 days. Repeat chest x-ray on 04/10 shows cardiomegaly and mild pulmonary vascular congestion. Nephrology was consulted regarding patient's renal function and patient was placed on bicarb drip which was later discontinued. Patient's renal function was monitored and is improving on discharge. Urinalysis showed trace protein, large blood, many RBCs, 6 WBC. Significant labs on discharge WBC 8.14, hemoglobin 13.1, sodium 139, potassium 4.1, BUN 60, creatinine 2.27. New medications to continue outpatiently or hydralazine 50 mg p.o. 3 times daily and gabapentin 100 mg 3 times daily. Patient to discontinue omeprazole, Jardiance, metformin, Celebrex, methocarbamol. [place] is setting up home care nursing services. Patient to follow-up with PCP and nephrology in 1 week. Patient seen and examined at bedside. Patient stable with no new complaints this morning. Vital signs reviewed and stable. Physical examination: Vital signs reviewed General: non toxic, no distress, appears at stated age, normal weight Derm: no unusual rashes/lesions, warm Head: atraumatic, normocephalic, symmetric Eyes: EOMI, anicteric sclera, pupils equal round reactive to light ENT: Nose and ears atraumatic Mouth: no lip lesion, mucus membranes moist Cardiovascular: S1S2 reg, no murmur, 1+ pitting edema bilaterally Lungs: CTA bilateral, no rhonchi, no rales, no accessory muscle use Abdominal: soft, nontender to palpation, no guarding Ext: muscle strength 5 out of 5 in all 4 extremities grossly, no gross muscle atrophy Neuro: CN II-XI grossly intact, no gross focal neuro deficits Psych: Alert, oriented to person, place, and time A total of greater than 30 minutes of time were spent preparing this complex discharge summary. Patient was discharged on 04/12/2025. Sierra Rooney DO PGY-1 IM Dictation was produced using [employer] dictation software. Please excuse any grammatical, word or spelling errors. I have seen and evaluated the patient today. Discussed with the resident and agree with the residents finding and plan as documented in the resident's note. Changes highlighted in blue font. Patient Condition at Discharge: Stable Plan - Discharge Summary Discharge Rx Participant: No New Discharge Prescriptions: New hydrALAZINE HCL [Apresoline] 50 mg PO TID #120 tab Gabapentin [Neurontin] 100 mg PO TID #90 cap Continue Finasteride [Proscar] 5 mg PO DAILY carvediloL [Coreg] 25 mg PO BID-W/MEALS Cholecalciferol (Vitamin D3) [Vitamin D3 (50 Mcg = 2000 Iu) Chew Tab] 50 mcg PO DAILY Sildenafil Citrate [Viagra] 100 mg PO DAILY PRN PRN Reason: e.d. Ketoconazole 2% Shampoo [Nizoral] 1 applic TOPICAL DAILY PRN PRN Reason: itchy/dry scalp Tiotropium 2.5 Mcg/Puff [Spiriva Respimat 2.5 Mcg] 2 puff INHALATION RT-DAILY Latanoprost [Xalatan 0.005%] 1 drop BOTH EYES HS Fluticasone Propion/Salmeterol [Fluticasone-Salmeterol 250-50] 1 puff INHALATION RT-BID Albuterol Inhaler [Ventolin Hfa Inhaler] 1 puff INHALATION RT-Q4H PRN PRN Reason: Shortness Of Breath rOPINIRole HCL [Requip] 3 mg PO HS Carbamide Peroxide [Debrox Otic] 5 - 10 drops BOTH EARS BID PRN PRN Reason: WAX BUILDUP Aspirin EC [Ecotrin Low Dose] 81 mg PO DAILY Alfuzosin HCl [Alfuzosin HCl ER] 10 mg PO DAILY Lidocaine 5% Patch [Lidoderm 5% Patch] 1 patch TOPICAL DAILY PRN PRN Reason: Pain Discontinued Omeprazole 20 mg PO DAILY Empagliflozin [Jardiance] 10 mg PO DAILY metFORMIN HCL [Glucophage] 850 mg PO DAILY Gabapentin [Neurontin] 300 mg PO TID Celecoxib [CeleBREX] 200 mg PO BID methocarbamoL [Robaxin-750] 750 mg PO TID PRN PRN Reason: Muscle Spasm Discharge Medication List Albuterol Inhaler [Ventolin Hfa Inhaler] 1 puff INHALATION RT-Q4H PRN 09/23/21 [History] Fluticasone Propion/Salmeterol [Fluticasone-Salmeterol 250-50] 1 puff INHALATION RT-BID 09/23/21 [History] Latanoprost [Xalatan 0.005%] 1 drop BOTH EYES HS 09/23/21 [History] Tiotropium 2.5 Mcg/Puff [Spiriva Respimat 2.5 Mcg] 2 puff INHALATION RT-DAILY 09/23/21 [History] Aspirin EC [Ecotrin Low Dose] 81 mg PO DAILY 11/04/22 [History] Carbamide Peroxide [Debrox Otic] 5 - 10 drops BOTH EARS BID PRN 11/04/22 [History] Finasteride [Proscar] 5 mg PO DAILY 11/04/22 [History] rOPINIRole HCL [Requip] 3 mg PO HS 11/04/22 [History] carvediloL [Coreg] 25 mg PO BID-W/MEALS 06/22/24 [History] Alfuzosin HCl [Alfuzosin HCl ER] 10 mg PO DAILY 04/08/25 [History] Cholecalciferol (Vitamin D3) [Vitamin D3 (50 Mcg = 2000 Iu) Chew Tab] 50 mcg PO DAILY 04/08/25 [History] Ketoconazole 2% Shampoo [Nizoral] 1 applic TOPICAL DAILY PRN 04/08/25 [History] Lidocaine 5% Patch [Lidoderm 5% Patch] 1 patch TOPICAL DAILY PRN 04/08/25 [History] Sildenafil Citrate [Viagra] 100 mg PO DAILY PRN 04/08/25 [History] Gabapentin [Neurontin] 100 mg PO TID #90 cap 04/12/25 [Rx] hydrALAZINE HCL [Apresoline] 50 mg PO TID #120 tab 04/12/25 [Rx] Follow up Appointment(s)/Referral(s): Loni Montenegro MD [STAFF PHYSICIAN] - 1 Week (office not answering Please call to schedule appointment ) [facility],Clinic [REFERRING] - 1 Week (office busy at time of dishcarge Please call to schedule appointment ) Ambulatory/Diagnostic Orders: Basic Metabolic Panel [LAB.AMB] Time Frame: 3 Days, Location: None Selected Patient Instructions/Handouts: Acute Kidney Injury (DC) Activity/Diet/Wound Care/Special Instructions: Please see PCP, and nephrology. The [facility] is setting up home care nursing services. If you do not hear from a home care agency within 48 hours of discharge, please call the [facility] [phone]. Discharge Disposition: HOME SELF-CARE
== END 2025-04-12 16:32 | disposition home or self-care (01) | DRG 917 ==
LOC: EC 17:47 → 5NMEDONC 22:19 → OBSVTOIN 22:20 → 4SSUR 04-08 04:28
PROVIDERS: ADMIT Student in an Organized Health Care Education/Training Program; ATTEND Student in an Organized Health Care Education/Training Program
DX: T40.2X1A Poisoning by other opioids, accidental (unintentional), initial encounter (principal); G92.8 Other toxic encephalopathy; N17.0 Acute kidney failure with tubular necrosis; E87.20 Acidosis, unspecified; M62.82 Rhabdomyolysis; N13.6 Pyonephrosis; E11.319 Type 2 diabetes mellitus with unspecified diabetic retinopathy without macular edema; J44.9 Chronic obstructive pulmonary disease, unspecified; I11.9 Hypertensive heart disease without heart failure; G25.81 Restless legs syndrome; N30.00 Acute cystitis without hematuria; E11.40 Type 2 diabetes mellitus with diabetic neuropathy, unspecified; E78.5 Hyperlipidemia, unspecified; E87.6 Hypokalemia; E87.70 Fluid overload, unspecified; G47.33 Obstructive sleep apnea (adult) (pediatric); M19.90 Unspecified osteoarthritis, unspecified site; I95.9 Hypotension, unspecified; K21.9 Gastro-esophageal reflux disease without esophagitis; M54.50 Low back pain, unspecified; G89.29 Other chronic pain; H91.90 Unspecified hearing loss, unspecified ear; I25.10 Atherosclerotic heart disease of native coronary artery without angina pectoris; K64.4 Residual hemorrhoidal skin tags; N40.0 Benign prostatic hyperplasia without lower urinary tract symptoms; Z91.81 History of falling; Z79.1 Long term (current) use of non-steroidal anti-inflammatories (NSAID); Z79.82 Long term (current) use of aspirin; Z79.84 Long term (current) use of oral hypoglycemic drugs; Z79.899 Other long term (current) drug therapy; Z85.828 Personal history of other malignant neoplasm of skin; Z87.891 Personal history of nicotine dependence; Z97.4 Presence of external hearing-aid; Z28.310 Unvaccinated for COVID-19
CPT/HCPCS: 36415; 51702; 70450; 71045; 71046; 74176; 76770; 80048; 80053; 80143; 80179; 80306; 80320; 81001; 82140; 82550; 83036; 83735; 84484; 85025; 85610; 85730; 87086; 87205; 93005; 94640; 94760; 96361; 96365; 96372; 99285